=== PATIENT | female | born 1985 | race Caucasian/White ===

== ENCOUNTER 2020-12-27 19:34 | Emergency (ER) | payer OTHER, SELFPAY ==
[2020-12-27 19:45] VITALS: BP 107/81; PULSE 81; RESP 16; TEMP 36.3; O2SAT 100
--- NOTE | 2020-12-27 19:54 | ED.GENADULT ---
HPI - General Adult General Chief complaint: Upper Respiratory Infection Stated complaint: sinus infection Time Seen by Provider: 12/27/20 19:37 Source: patient Mode of arrival: ambulatory Limitations: no limitations History of Present Illness HPI narrative: Patient presents for evaluation of sinus issues for last 3 days. She reports sinus congestion, thick purulent drainage from both nares, mild sore throat. No fever, chills, nausea, vomiting, cough, shortness of breath. No recent sick contacts to her knowledge. She did have Covid in the past. She has not received COVID vaccination. She is currently breast-feeding. She tried taking some [id number] agents with minimal improvement in her symptoms or after. Related Data Home Medications Medication Instructions Recorded Confirmed PNV no.[id number] acid 1 tablet PO DAILY 12/27/20 12/27/20 [Complete ] sertraline 50 mg PO DAILY 12/27/20 12/27/20 Allergies Allergy/AdvReac Type Severity Reaction Status Date / Time No Known Allergies Allergy Verified 12/27/20 19:36 Review of Systems Review of Systems: Narrative: CONSTITUTIONAL: Denies fever, chills, or sweats. EYES: Denies visual changes, redness, or discharge. ENT: Reports sinus congestion and mucopurulent drainage from both nares. Reports mild sore throat. Denies otalgia, tinnitus and hearing loss CARDIOVASCULAR: Denies chest pain, palpitations, or edema. RESPIRATORY: Denies cough or dyspnea. GASTROINTESTINAL: Denies abdominal pain, nausea, vomiting, or diarrhea. GENITOURINARY: Denies dysuria or hematuria. SKIN: Denies rash or itching. MUSCULOSKELETAL: Denies back pain, joint pain, or myalgia. NEUROLOGIC: Denies headache, numbness, dizziness, or weakness. PSYCHIATRIC: Denies anxiety or depression. [facility] Past Medical History Medical History (Updated 12/27/20 @ 20:00 by Randall Casillas, CHINYERE, JAKI) Depression Surgical History Surgical History History of section Family History Family History Mother No pertinent past medical history Social History Social History Alcohol intake: current Alcohol use details: Social Substance use: never Living arrangements: with family Gender identity (if verbalized by the patient): Female Sexual Orientation (if Verbalized by the Patient): Straight or Heterosexual Spiritual care concerns: No Exam Narrative: Exam Narrative: GENERAL: Well-appearing, well-nourished, and in no acute distress. HEAD: Normocephalic, atraumatic. EYES: PERRLA and EOMI. ENT: Nares clear, no rhinorrhea or epistaxis. Mucous membranes moist. Posterior pharyngeal erythema without exudate. Uvula is midline. Bilateral TMs erythematous with middle ear fluid present bilaterally. Bilateral frontal and maxillary sinuses slightly tender to palpation NECK: Supple. No adenopathy or masses. No carotid bruits or JVD CHEST: Clear to auscultation. No respiratory distress. No wheezes rales or rhonchi HEART: Regular rate and rhythm. No murmur heard. Normal peripheral pulses. ABDOMEN: Soft, nontender, nondistended, normal active bowel sounds. EXTREMITIES: Normal range of motion. No edema. SKIN: Warm, dry, no rash. NEURO: No focal deficits. Alert and oriented x3. PSYCH: Normal mood and affect. Course Course Emergency Course: This is a 35-year-old female who presents with 3-day history of sinus congestion, mucopurulent drainage from both nares. Given reported history, her symptoms are consistent with ABRS. We will treat with Augmentin. Advised on signs and symptoms for which she should monitor child while breast-feeding. We did a rapid Covid swab which was negative. Advised follow-up outpatient for further evaluation and treatment return for worsening symptoms. Patient agreed with plan of
== END 2020-12-27 20:12 | disposition home or self-care (01) ==
PROVIDERS: Emergency Provider Nurse Practitioner
DX: J01.90 Acute sinusitis, unspecified (principal); Z20.822 Contact with and (suspected) exposure to COVID-19; F32.9 Major depressive disorder, single episode, unspecified
CPT/HCPCS: 87426; 99213; C9803; G0463

== ENCOUNTER 2022-10-27 15:29 | Emergency (ER) | payer BC, SELFPAY ==
--- NOTE | 2022-10-27 15:31 | ED.EAR ---
HPI - Ear Problem General Chief complaint: Ear Stated complaint: Lt Ear Irritation Time Seen by Provider: 10/27/22 15:37 Source: patient and RN notes reviewed Mode of arrival: ambulatory Limitations: no limitations History of Present Illness HPI Narrative: 36-year-old female presents concern for left ear pain. She also reports nasal congestion, rhinorrhea, sore throat started today. She reports she had a fever on the 1st day of symptoms. She reports cough. Reports she took NyQuil last night MD Complaint: ear pain Related Data Home Medications Medication Instructions Recorded Confirmed sertraline 50 mg tablet 50 mg PO DAILY 12/27/20 10/27/22 ubrogepant 100 mg tablet (Ubrelvy) 100 mg PO DIRECTED 10/27/22 10/27/22 Allergies Allergy/AdvReac Type Severity Reaction Status Date / Time No Known Allergies Allergy Verified 10/27/22 15:40 Review of Systems Review of Systems: CONSTITUTIONAL: Denies malaise, chills, sweats, or fever. EYES: Denies visual changes, redness, or discharge. ENT: Reports rhinorrhea, congestion,and sore throat. Reports left ear pain CARDIOVASCULAR: Denies chest pain, palpitations, or edema. RESPIRATORY: Reports cough. Denies dyspnea. GASTROINTESTINAL: Denies abdominal pain, nausea, vomiting, diarrhea SKIN: Denies rash or itching. MUSCULOSKELETAL: Denies myalgia. NEUROLOGIC: Denies headache. All systems reviewed & are unremarkable except as noted in HPI and below PMFSH Past Medical History Medical History (Updated 10/27/22 @ 15:46 by Lyudmila Troncoso NP) Depression Surgical History Surgical History History of section Family History Family History Mother No pertinent past medical history Social History Social History Alcohol intake: current Alcohol use details: Social Substance use: never Living arrangements: with family Gender identity (if verbalized by the patient): Female Sexual Orientation (if Verbalized by the Patient): Straight or Heterosexual Spiritual care concerns: No Comments At time of signature, agree with nursing past medical, surgical, social and family history. There is no relevant family history pertinent to the presenting complaint Exam Narrative: GENERAL: Well-appearing, well-nourished, and in no acute distress. HEAD: Normocephalic EYES: PERRLA, conjunctivae clear ENT: Nares clear, turbinates edematous, clear discharge. Mucous membranes moist. Right tM pearly castillo with dull light reflex left TM erythematous; no tragal tenderness. Oropharynx not erythematous without lesions. Tonsils not enlarged and without exudate, no drooling, no hoarseness, no trismus, uvula midline. NECK: Supple. No lymphadenopathy CHEST: Clear to auscultation, breath sounds equal. No wheezing, rhonchi, rales, or stridor. No respiratory distress, speaks in full sentences. HEART: Regular rate and rhythm. No murmur heard. SKIN: Warm, dry, no rash. NEURO: Alert and oriented x3. PSYCH: Normal mood and affect Course Course Emergency Course: Patient is aware of diagnosis, understands and agrees to treatment plan. Anticipatory guidance given. Patient agrees to follow-up as directed and is aware of reasons to seek care at the emergency department. Portions of this record may have been created with voice recognition software Level of Care: Express Care Visit Vital Signs Vital signs: Reviewed. Medical Decision Making MDM Narrative Medical decision making narrative: Differential diagnosis considered: Otoole virus, strep pharyngitis, allergic rhinitis, upper respiratory tract infection, sinusitis, rhinosinusitis, nasopharyngitis. viral pharyngitis, otitis media, otitis externa, otitis effusion, cerumen impaction, foreign body. Exam findings show no acute concerns or changes; patien
[2022-10-27 15:37] VITALS: BP 111/70; PULSE 76; RESP 18; TEMP 36.6; O2SAT 100
== END 2022-10-27 15:50 | disposition home or self-care (01) ==
PROVIDERS: Emergency Provider Nurse Practitioner
DX: H66.92 Otitis media, unspecified, left ear (principal); F32.A Depression, unspecified
CPT/HCPCS: 99203; G0463

== ENCOUNTER 2024-05-20 09:59 | Emergency (ER) | payer BC, SELFPAY ==
[2024-05-20 10:30] VITALS: BP 114/72; PULSE 81; RESP 16; TEMP 36.2; O2SAT 100
--- NOTE | 2024-05-20 10:42 | ED.EAR ---
HPI - Ear Problem General Chief complaint: Ear Stated complaint: ear infection Time Seen by Provider: 05/20/24 10:45 Source: patient, RN notes reviewed and old records reviewed Mode of arrival: ambulatory Limitations: no limitations History of Present Illness HPI Narrative: [age] year female to the complaints of left ear pain for 3 days. Patient states she took some Advil last night. Related Data Home Medications ?Medication ?Instructions ?Recorded ?Confirmed ?Last Taken ?Type ubrogepant 100 mg tablet (Ubrelvy) 100 mg PO DIRECTED 10/27/22 10/27/22 Unknown History Allergies Allergy/AdvReac Type Severity Reaction Status Date / Time No Known Allergies Allergy Verified 05/20/24 10:47 Review of Systems Review of Systems: All systems reviewed & are unremarkable except as noted in HPI and below Constitutional: Constitutional: Reports no additional constitutional complaints ENT: Reports as per HPI Cardiovascular: Cardiovascular: Reports no additional cardiovascular complaints, Denies chest pain and Denies dyspnea Respiratory: Respiratory: Reports no additional respiratory complaints, Denies chest congestion, Denies cough and Denies dyspnea Gastrointestinal: Gastrointestinal: Reports no additional gastrointestinal complaints, Denies abdominal pain, Denies nausea and Denies vomiting Musculoskeletal: Musculoskeletal: Reports no additional musculoskeletal complaints Integumentary/Breasts: Skin/Breast: Reports system reviewed and no additional complaints, except as docu PMFSH Past Medical History Medical History Depression Surgical History Surgical History History of section Family History Family History Mother No pertinent past medical history Social History Social History Alcohol intake: current Alcohol use details: Social Substance use: never Living arrangements: with family Gender identity (if verbalized by the patient): Female Sexual Orientation (if Verbalized by the Patient): Straight or Heterosexual Spiritual care concerns: No Comments At the time of my signature, I reviewed and agree with the nursing past medical, surgical, social, and family history. There is no relevant family history pertinent to the patient complaint. Exam Const: General: cooperative, healthy appearing, comfortable, no acute distress, well developed, alert and well nourished Nutritional Appearance: well nourished Orientation/consciousness: patient oriented x3 Limitations: no limitations HENMT: Head: normal to inspection Ears: hearing grossly normal bilaterally, external ears normal, EAC's normal, mastoids normal, no periauricular adenopathy and TM abnormal bulging on the left and with fluid behind the TM bilateral Face/Nose/Sinus: Normal external nose present, normal facial exam and face symmetric Face and sinus: normal facial exam and face symmetric Eyes: General: appearance normal, both eyes and all related structures Alignment and Position: alignment normal Periorbital: periorbital findings normal Neck: Neck: normal visual inspection, full ROM, no lymphadenopathy and no meningeal signs Chest: Chest palpation & inspection: normal inspection of the chest Resp: Effort & Inspection: normal respiratory effort and able to speak in complete sentences Auscultation: clear to auscultation bilaterally, no crackles, no rales, no rhonchi and no wheezes Cardio: Rate: regular rate Skin: General skin exam: normal color and no rashes or lesions noted Lesions: no lesions Rashes: no rashes Wounds: no wounds Neuro: General: patient oriented x3, gait normal, tone normal, moves all extremities and no meningeal signs Cognition (Neuro): normal cognition Speech: normal speech Gait exam (Neuro): Normal gait present Extrem: General: normal to inspection, full ROM, capillary refill normal and normal gait Psych: Appearance: grossly normal and well kempt Mental Status: mental status grossly normal Speech and movement: Normal speech and movement present and Clear speech present Affect: normal affect Attitude: cooperative Course Course Level of Care: Express Care Visit Vital Signs Vital signs: Vital Signs Temperature 97.1 F L 05/20/24 10:30 Pulse Rate 81 05/20/24 10:30 Respiratory Rate 16 05/20/24 10:30 Blood Pressure 114/72 05/20/24 10:30 Pulse Oximetry 100 05/20/24 10:30 Oxygen Delivery Room Air 05/20/24 10:30 Temperature 97.1 F L 05/20/24 10:30 Pulse Rate 81 05/20/24 10:30 Respiratory Rate 16 05/20/24 10:30 Blood Pressure 114/72 05/20/24 10:30 Pulse Oximetry 100 05/20/24 10:30 Oxygen Delivery Room Air 05/20/24 10:30 Reviewed Medical Decision Making MDM Narrative Medical decision making narrative: Patient sitting comfortably in exam room. Nontoxic, vitals stable. Patient in no acute distress Patient presents for ear discomfort, clear fluid noted behind TM. No signs of a bacterial infection Patient appropriate for outpatient treatment Discharge instructions reviewed with patient, as well as provided in writing per nursing staff. The instructions also include specific and strict return/GO TO THE ER as well as f/u information. All questions have been answered, and the patient deny any further questions with discharge and discharge plan. Some parts of this dictation were generated by voice recognition software and may contain typographical and/or grammatical inaccuracies. Differential Diagnosis Differential Diagnosis: Otitis media, serous otitis, URI Medical Records Medical records reviewed: Yes I reviewed the external patient's medical records. Vital Signs Vital Signs: Vital Signs Temperature 97.1 F L 05/20/24 10:30 Pulse Rate 81 05/20/24 10:30 Respiratory Rate 16 05/20/24 10:30 Blood Pressure 114/72 05/20/24 10:30 Pulse Oximetry 100 05/20/24 10:30 Oxygen Delivery Room Air 05/20/24 10:30 Temperature 97.1 F L 05/20/24 10:30 Pulse Rate 81 05/20/24 10:30 Respiratory Rate 16 05/20/24 10:30 Blood Pressure 114/72 05/20/24 10:30 Pulse Oximetry 100 05/20/24 10:30 Oxygen Delivery Room Air 05/20/24 10:30 Reviewed Lab Data Lab results reviewed: Yes I reviewed the patient's lab results. Labs: Reviewed Critical Care Time Critical Care Time Critical Care Time: No Discharge Plan Discharge Clinical Impression: Acute serous otitis media of left ear Qualifiers: Recurrence: not specified as recurrent Qualified Code(s): H65.02 - Acute serous otitis media, left ear Patient Disposition: Home, Self-Care Condition: Stable Instructions: Antibiotic Form, Fluid In The Ear (Serous Otitis Media) (ED) Additional Instructions: It is very important to treat your symptoms. Drink plenty of water, Gatorade, Pedialyte, ice pops or Jell-O. -Alternate Tylenol and Motrin per package directions for fever or pain. You can alternate every 4 hours -Antihistamine medication such as Zyrtec/Claritin/Ester during the day can help improve symptoms. -doing daily nasal irrigations can help relieve pressure your sinuses. Things like a Neti pot -Use Flonase twice a day for 5 days then daily to help reduce the inflammation and dry up your sinuses. -You can also use Mucinex. Be sure to drink plenty of water with this medication at least 8 ounces with every dose and it is important to drink 8 to 10 glasses of water per day. Water is a natural decongestant -Frequent hand washing or hand post anesthesia room nurse is one of the best ways to prevent spread of infection. -Using a vaporizer or humidifier at night will also help thin secretions and help with coughing up phlegm. -Follow up with primary care provider in 7-10 days if condition is not improving - For new or worsening symptoms go directly to the nearest ER Patient Language: Amharic Prescriptions: New methylprednisolone [Medrol (Huseyin)] 4 mg tablets,dose pack See Rx Instructions PO .COMPLEX Qty: 21 0RF Rx Instructions: orally per package directions No Action Ubrelvy 100 mg tablet 100 mg PO DIRECTED Rx Instructions: EVERY OTHER DAY Follow-up/Referrals: Mitch,JORDYN Pimentel [Primary Care Provider] - 1 Week ([facility] follow up ) Time of Disposition: 10:53
--- OUTSIDE RECORDS SUMMARY | 2024-05-27 15:04 | XMS_ITS | Encounter Summary ---
Author Organization [facility] Address [address] [place] [address]. [address] [address] Care Team Providers Care Restaurant Hourly Team Member Name Role Phone Lena Meyer PA-C Primary Care Provider [phone] Encounter Details Date Type Department Care Team (Latest Contact Info) Description 04/11/2023 Travel Social History Tobacco Use Types Packs/Day Years Used Date Smoking Tobacco: Never Smokeless Tobacco: Never Alcohol Use Standard Drinks/Week Comments Yes 0 (1 standard drink = 0.6 oz pur e alcohol) socially PHQ-2 Answer Date Recorded Patient Health Questionnaire-2 Score 0 03/14/2023 Comments Unknown Sex and Gender Information Value Date Recorded Sex Assigned at Not on file Legal Sex Female 7:59 PM CDT Gender Identity Not on file Sexual Orientation Not on file documented as of this encounter Plan of Treatment Not on file documented as of this encounter Visit Diagnoses Not on filedocumented in this encounter Care Teams Restaurant Hourly Team Member Relationship Specialty Start Date End Date Lena Meyer PA-C [address] [facility] [address] [place] [id number] PCP - General PHYSICIAN BUNCHER HAND 02/27/23 documented as of this encounter
--- OUTSIDE RECORDS SUMMARY | 2024-05-27 15:04 | XMS_ITS | Encounter Summary ---
Author Organization [facility] Address [address] [place] [address]. [place] [id number] [place] [id number] Care Team Providers Care Latin American Studies Director Name Role Phone Lena Meyer PA-C Primary Care Provider [phone] Encounter Details Date Type Department Care Team (Late st Contact Info) Description 03/16/2023 9:20 AM CDT Laboratory Only [facility] Family & Internal Medicine [address] [phone] Lena Meyer PA-C [address] [place] [address] Social History Tobacco Use Types Packs/Day Years [...] on file documented as of this encounter Procedures Procedure Name Priority Date/Time Associated Diagnosis Comments VENIPUNC ARM DRAW Routine 03/16/2023 9:02 AM CDT Elevated liver enzymes Decreased hemoglobin documented in this encounter Visit Diagnoses Diagnosis Elevated liver enzymes- Primary Nonspecific elevation of levels of transaminase or lactic acid dehydrogenase (LDH) Decreased hemoglobin Anemia, unspecified documented in this encounter Care Teams Latin American Studies Director Relationship Specialty Start Date End Date Lena Meyer PA-C [address] [place] [address] PCP - General PHYSICIAN DEPARTMENT SUPERVISOR 02/27/23 documented as of this encounter
--- OUTSIDE RECORDS SUMMARY | 2024-05-27 15:04 | XMS_ITS | Encounter Summary ---
Author Organization [facility] Address [address] [place] [address]. [place] [id number] [place] [address] Care Team Providers Care Carbon Capture Power Plant Manager Name Role Phone Lena Meyer PA-C Primary Care Provider [phone] Encounter Details Date Type Department Care Team (Late st Contact Info) Description 05/03/2023 [employer] Message Enc [facility] Family & Internal Medicine [address] [phone] Lena Meyer PA-C [address] [place] [address] [place] [facility] Social History Tobacco Use Types Packs/Day Years [...] on file documented as of this encounter Progress Notes * Harriet Wolff RN - 05/03/2023 2:37 PM CST Patient aware and voiced understanding OR ASIC DESIGN ENGINEER * Lena Meyer PA-C - 05/03/2023 9:51 AM CST With her kids having pinkeye, I did send in some antibiotic drops to the pharmacy. If symptoms do not improve she will need to be seen. Thank you! OR ASIC DESIGN ENGINEER * Harriet Wolff RN - 05/03/2023 9:45 AM CST Please advise. OR ASIC DESIGN ENGINEER documented in this encounter Plan of Treatment Not on file documented as of this encounter Visit Diagnoses Diagnosis Acute bacterial conjunctivitis of both eyes- Primary documented in this encounter Care Teams Carbon Capture Power Plant Manager Relationship Specialty Start Date End Date Lena Meyer PA-C [address] [address] PCP - General PHYSICIAN MAID CLEANING COOKING 02/27/23 documented as of this encounter
--- OUTSIDE RECORDS SUMMARY | 2024-05-27 15:04 | XMS_ITS | Clinical Summary ---
Author Organization [facility] Address [address] [place] [address]. [place], [place] [address] [place] [address] Care Team Providers Care Internet Consultant Name Role Phone Lena Meyer PA-C Primary Care Provider [phone] Allergies No known active allergies Medications sertraline (ZOLOFT) 25 MG tablet Take 1 tablet (25 mg total) by mouth daily. 12/11/2018 Active ubrogepant (UBRELVY) 100 MG tablet Take 1 tablet (100 mg total) by mouth as needed. Prn 02/11/2022 Active Active Problems No known active problems Immunizations Name Administration Dates Next Due Influenza (Generic) 06/22/2017,03/19/2014 Influenza Adult (Generic) 02/26/2020,04/03/2019, 03/21/2018 PFIZER COVID-19 (ORIGINAL FO RMULATION, PURPLE CAP) mRNA, LNP-S, PF, 30 MCG/0.3 ML DOSE 02/07/2021,01/06/2021 Tdap (Generic) 05/20/2020,06/26/2017 Family History Medical History Relation Comments Hypertension Father Christina's thyroiditis Mother Relation Status Comments Father Alive Mother Alive Social History Tobacco Use Types Packs/Day Years Used Date Smoking Tobacco: Never Smokeless Tobacco: Never Tobacco Cessation:Counseling Given: No Alcohol Use Standard Drinks/Week Comments Yes 0 (1 standard drink = 0.6 oz pur e alcohol) socially PHQ-2 Answer Date Recorded Patient Health Questionnaire-2 Score 0 03/14/2023 Comments Unknown Sex and Gender Information Value Date Recorded Sex Assigned at Not on file Legal Sex Female 7:59 PM CDT Gender Identity Not on file Sexual Orientation Not on file Last Filed Vital Signs Vital Sign Reading Time Taken Comments Blood Pressure 130/81 03/14/2023 9:05 AM CDT Pulse 85 03/14/2023 9:05 AM CDT Temperature 35.9 ??C (96.7 ??F) 03/14/2023 9:05 AM CD T Respiratory Rate 14 03/14/2023 9:05 AM CDT Oxygen Saturation 99% 03/14/2023 9:05 AM CDT Inhaled Oxygen Concentration - - Weight 75.8 kg (167 lb) 03/14/2023 9:05 AM CDT Height 181.6 cm (5' 11.5 ) 03/14/2023 9:05 AM CD T Body Mass Index 22.97 03/14/2023 9:05 AM CDT Plan of Treatment Health Maintenance Due Date Last Done Comments Cervical Cancer Screening Pap Smear (Age 30 to 64) Every 3 Years 1985 Hepatitis C 12/03/2003 Hepatitis B Vaccines (1 of 3 - 19+ 3-dose series) 2004 Cervical Cancer Screening Pap with HPV Testing (Age 30 to 64) Every 5 Years 12/03/2015 Cervical Cancer Screening with HPV 12/03/2015 COVID-19 Vaccine ( season) 2024 02/07/2021, 01/06/2021 Influenza Adult (#1) 2024 02/26/2020, 04/03/2019, 03/21/2018, Additional history exists Annual Physical 03/14/2024 03/14/2023 DTaP, Tdap and Td Vaccines (3 - Td or Tdap) 05/20/2030 05/20/2020, 06/26/2017 HPV Vaccines Aged Out No longer eligi ble based on patient's age to complete this topic Meningococcal Vaccine Aged Out No bautista joselito eligible based on patient's age to complete this topic Pneumococcal Vaccine: Pediatrics (0 to 5 Years) and At-Risk Patients (6 to 64 Years) Aged Out No longer eligible based on patient's age to complete this topic RSV Immunizations Under 20 Months Aged Out No longer eligible based on patient's age to complete this topic Insurance [facility] Care Teams Internet Consultant Relationship Specialty Start Date End Date Lena Meyer PA-C [address] [facility] [address] [place] [id number] PCP - General PHYSICIAN SUPERVISOR NUCLEAR MEDICINE 02/27/23
--- OUTSIDE RECORDS SUMMARY | 2024-05-27 15:04 | XMS_ITS | Encounter Summary ---
Author Organization [facility] Address [address] [place] [address]. [address] [address] Care Team Providers Care Telegraphic Typewriter Mechanic Name Role Phone Lena Meyer PA-C Primary Care Provider Encounter Details Date Type Department Care Team (Latest Contact Info) Description 03/16/2023 Travel Social History Tobacco Use Types Packs/Day [...] on filedocumented in this encounter Care Teams Telegraphic Typewriter Mechanic Relationship Specialty Start Date End Date Lena Meyer PA-C [address] [facility] [address] [place] [id number] PCP - General PHYSICIAN CEO NA 02/27/23 documented as of this encounter
--- OUTSIDE RECORDS SUMMARY | 2024-05-27 15:04 | XMS_ITS | Encounter Summary ---
Author Organization [facility] Address [address] [place] [address]. [place], [place] [id number] [place] [address] Care Team Providers Care Dust Box Worker Name Role Phone Lena Meyer PA-C Primary Care Provider [phone] Encounter Details Date Type Department Care Team (Latest Contact Info) Description 03/16/2023 12:28 PM CDT - 03/16/2023 11:59 PM CDT Hospital Encounter [facility] [address] [place], [place] [id number] Lena Meyer PA-C [address] [facility] [address] [place], [place] [id number] Discharge Disposition: Home or Self Care (Routine Discharge) Social History Tobacco Use Types Packs/Day Years [...] on file documented as of this encounter Medications at Time of Discharge sertraline (ZOLOFT) 25 MG tablet Take 1 tablet (25 mg total) by mouth daily. 12/11/2018 ubrogepant (UBRELVY) 100 MG tablet Take 1 tablet (100 mg total) by mouth as needed. Prn 02/11/2022 documented as of this encounter Plan of Treatment Not on file documented as of this encounter Procedures Procedure Name Priority Date/Time Associated Diagnosis Comments VITAMIN B12 / FOLATE Routine 03/16/2023 9:01 AM CDT Decreased hemoglobin IRON SAT PANEL (IRON,IBC,%SAT) Routine 03/16/2023 9:01 AM CDT Decreased hemoglobin HEPATIC FUNCTION PANEL Routine 03/16/2023 9:01 AM CDT Elevated liver enzymes FERRITIN Routine 03/16/2023 9:01 AM CDT Decreased hemoglobin documented in this encounter Results * (ABNORMAL) HEPATIC FUNCTION PANEL (03/16/2023 9:01 AM CDT) TOTAL PROTEIN S/P/B 7.1 6.4 - 8.2 G/DL 03/16/2023 2:16 PM CDT [facility] ALBUMIN S/P/B 4.3 3.4 - 5.0 G/DL 03/16/2023 2:16 PM CDT [facility] BILIRUBIN TOTAL S/P/B 0.6 0.2 - 1.2 MG/DL 03/16/2023 2:16 PM CDT [facility] BILIRUBIN DIRECT S/P/B 0.1 0.0 - 0.20 MG/DL 03/16/2023 2:16 PM T [facility] BILIRUBIN INDIRECT S/P/B 0.5 0.0 - 0.9 MG/DL 03/16/2023 2:16 PM CDT [facility] ALKALINE PHOSPHATASE S/P/B 96 50 - 136 U/L 03/16/2023 2:16 PM CDT [facility] AST 38(H) 15 - 37 U/L 03/16/2023 2:16 PM T [facility] ALT 85(H) 14 - 55 U/L 03/16/2023 2:16 PM CDT [facility] A/G RATIO 1.5 1.0 - 2.0 RATIO 03/16/2023 2:16 PM CDT [facility] 03/16/2023 9:01 AM CDT us Lena Meyer PA-C LABORATORY Final Result Performing Organization Address City/[facility]/ZIP Co de Phone Number [facility] [address] [place] [address], [place] [phone] * IRON SAT PANEL (IRON,IBC,%SAT) (03/16/2023 9:01 AM CDT) IRON 117 50 - 170 MCG/DL 03/16/2023 2:03 PM CDT [facility] IRON BINDING CAPACITY 435 250 - 450 MCG/DL 03/16/2023 2:03 PM CDT [facility] IRON SATURATION 27 20 - 55 % 2:03 PM CDT [facility] 03/16/2023 9:01 AM CDT us Lena Meyer PA-C LABORATORY Final Result Performing Organization Address City/[facility]/ZIP Co de Phone Number [facility] [address] [place] [address], [place] [phone] * FERRITIN (03/16/2023 9:01 AM CDT) FERRITIN 15.0 8.0 - 388.0 NG/ML 03/16/2023 2:16 PM CDT [facility] 03/16/2023 9:01 AM CDT us Lena Meyer PA-C LABORATORY Final Result Performing Organization Address City/[facility]/ZIP Co de Phone Number [facility] [address] [place] [address], [place] [phone] * VITAMIN B12 / FOLATE (03/16/2023 9:01 AM CDT) VITAMIN B12 S/P/B 632 193 - 986 PG/ML 03/16/2023 2:12 PM CDT [facility] FOLATE 18.0 8.6 - 58.9 NG/ML 03/16/2023 2:12 PM CDT [facility] 03/16/2023 9:01 AM CDT Lena Meyer PA-C LABORATORY Final Result Performing Organization Address City/[facility] Co de Phone Number [facility] [address] [place] [address], [place] [phone] documented in this encounter Visit Diagnoses Diagnosis Decreased hemoglobin Anemia, unspecified Elevated liver enzymes Nonspecific elevation of levels of transaminase or lactic acid dehydrogenase (LDH) documented in this encounter Care Teams Dust Box Worker Relationship Specialty Start Date End Date Lena Meyer PA-C [address] [address] PCP - General PHYSICIAN DATA MANAGER 02/27/23 documented as of this encounter
--- OUTSIDE RECORDS SUMMARY | 2024-05-27 15:04 | XMS_ITS | Encounter Summary ---
Author Organization [facility] Address [address] [place] [address]. [place] [address] Care Team Providers Care Assistant Merchandise Manager Name Role Phone Vonda Loya PA-C Primary Care Provider [phone] Reason for Referral * Imaging (Routine) - Closed Specialty Diagnoses / Procedures Referred By Contac t Referred To Contact RADIOLOGY Diagnoses Elevated liver enzymes Procedures US ABD LIMITED Vonda Loya PA-C [address] [place] [address] Phone: tel: fax: Referral ID Status Reason Start Date Expiration Date Visits Re quested Visits Authorized [id number] Closed 03/14/2023 03/14/2024 1 1 OR ACCOUNT MANAGER Reason for Visit * Imaging (Routine) - Closed Specialty Diagnoses / Procedures Referred By Contac t Referred To Contact RADIOLOGY Diagnoses Elevated liver enzymes Procedures US ABD LIMITED Vonda Loya PA-C [address] [place] [address] Phone: tel: fax: Referral ID Status Reason Start Date Expiration Date Visits Re quested Visits Authorized [id number] Closed 03/14/2023 03/14/2024 1 1 Encounter Details Date Type Department Care Team (Latest Contact Info) Description 04/11/2023 10:00 AM SENIOR ACCOUNT MANAGER - 04/11/2023 11:59 PM SENIOR ACCOUNT MANAGER Hospital Encounter [facility] Ul[facility]ound [address] [facility] [place] [address] Vonda Loya PA-C [address] [place] [address] Discharge Disposition: Home or Self Care (Routine [...] Prn 02/11/2022 documented as of this encounter Progress Notes * Jocelyn Spencer MA - 04/11/2023 10:00 AM CST Pt told results of US. Pt v/u OR ACCOUNT MANAGER documented in this encounter Plan of Treatment Not on file documented as of this encounter Procedures Procedure Name Priority Date/Time Associated Diagnosis Comments US ABD LIMITED Routine 04/11/2023 10:47 AM SENIOR ACCOUNT MANAGER Elevated liver enzymes documented in this encounter Results * US ABD LIMITED (04/11/2023 10:47 AM SENIOR ACCOUNT MANAGER) Anatomical Region Laterality Modality Abdomen Ultrasound 04/11/2023 1:17 PM SENIOR ACCOUNT MANAGER Impressions 04/11/2023 1:20 PM SENIOR ACCOUNT MANAGER IMPRESSION: 1. ??Mild fatty liver without focal mass. Ordered By: VONDA LOYA Interpreted By: Nato Johnson, 04/11/2023 1:17 PM Narrative 04/11/2023 1:20 PM SENIOR ACCOUNT MANAGER IMAGING STUDIES: ??US ABD LIMITED ? DATE: ??04/11/2023 10:12 AM COMPARISON STUDIES: No previous exams available CLINICAL HISTORY: Abnormal levels of other serum enzymes. Elevated liver enzymes FINDINGS: 1. ??Normal appearance to the gallbladder without calculi. No gallbladder wall thickening. 2. ??Mild fatty infiltration of the liver without focal mass..Hepatic and portal veins are patent.. Common bile duct measures.4.5 mm. 3. ??Right kidney yrsixthe04.9 x 4.4 x 5.0 cm. No focal mass or hydronephrosis. 4. ??Partially visualized pancreas without gross abnormality. Procedure Note Nadeem Johnson MD - 04/11/2023 IMAGING STUDIES: US ABD LIMITED DATE: 04/11/2023 10:12 AM COMPARISON STUDIES: No previous exams available CLINICAL HISTORY: Abnormal levels of other serum enzymes. Elevated liverenzymes FINDINGS: 1. Normal appearance to the gallbladder without calculi. No gallbladderwall thickening. 2. Mild fatty infiltration of the liver without focal mass..Hepatic andportal veins are patent.. Common bile duct measures.4.5 mm. 3. Right kidney exlqzwek06.9 x 4.4 x 5.0 cm. No focal mass orhydronephrosis. 4. Partially visualized pancreas without gross abnormality. IMPRESSION: 1. Mild fatty liver without focal mass. Ordered By: VONDA LOYA Interpreted By: Nato Johnson, 04/11/2023 1:17 PM Vonda Loya DE-C ULTRASOUND Final Result documented in this encounter Visit Diagnoses Diagnosis Elevated liver enzymes Nonspecific elevation of levels of transaminase or lactic acid dehydrogenase (LDH) documented in this encounter Care Teams Assistant Merchandise Manager Relationship Specialty Start Date End Date Vonda Loya, GUERA [address] [facility] [address] [place] [address] PCP - General PHYSICIAN INSOLE PRESSER 02/27/23 documented as of this encounter
--- OUTSIDE RECORDS SUMMARY | 2024-05-27 15:05 | XMS_ITS | Encounter Summary ---
Author Organization [facility] Address [address] [place] [address]. [place] [address] Care Team Providers Care Sensor Specialist Name Role Phone David Ross MD Primary Care Provider Unavailable Encounter Details Date Type Department Care Team (Latest Contact Info) Description 08/01/2016 Abstract [facility] Social History Tobacco Use Types Packs/Day Years Used Date Smoking Tobacco: Never Assessed Comments Unknown Sex and Gender Information Value Date Recorded Sex Assigned at Not on file Legal Sex Female 7:59 PM CDT Gender Identity Not on file Sexual Orientation Not on file documented as of this encounter Plan of Treatment Not on file documented as of this encounter Visit Diagnoses Not on filedocumented in this encounter Care Teams Sensor Specialist Relationship Specialty Start Date End Date David Ross MD PCP - General 07/31/16 documented as of this encounter
--- OUTSIDE RECORDS SUMMARY | 2024-05-27 15:05 | XMS_ITS | Encounter Summary ---
Author Organization [facility] Address [address] [place] [address]. [place] [address] Care Team Providers Care Preconstruction Manager Name Role Phone Unavailable Primary Care Provider Unavailabl e Encounter Details Date Type Department Care Team (Latest Contact Info) Description 05/14/2018 Scan HE[facility] INFO [facility] Scanned, Documents Social History Tobacco Use Types Packs/Day Years [...]
--- OUTSIDE RECORDS SUMMARY | 2024-05-27 15:05 | XMS_ITS | Encounter Summary ---
Author Organization [facility] Address [address] [place] [address]. [place] [address] Care Team Providers Care News Production Supervisor Name Role Phone Md Generic Lakeisha LOPEZ Primary Care Provider Unavailable David Lopez MD Primary Care Provider Unavailable David Lopez MD Primary Care Provider Unavailable Encounter Details Date Type Department Care Team (Latest Contact Info) Description 04/17/2014 Scan HEALTH INFO [facility] Scanned, Documents Social [...] on filedocumented in this encounter Care Teams News Production Supervisor Relationship Specialty Start Date End Date David Lopez MD PCP - General 07/31/16 David Lopez MD PCP - General 03/16/16 David Lopez MD PCP - General 07/23/1203/15 documented as of this encounter
--- OUTSIDE RECORDS SUMMARY | 2024-05-27 15:05 | XMS_ITS | Encounter Summary ---
Author Organization [facility] Address [address] [place] [address]. [place] [address] Care Team Providers Care Director Geothermal Operations Name Role Phone Vonda Loya PA-C Primary Care Provider [phone] Reason for Referral * Imaging (Routine) - Closed Specialty Diagnoses / Procedures Referred By Contelia t Referred To Contact RADIOLOGY Diagnoses Elevated liver enzymes Procedures US ABD LIMITED Vonda Loya PA-C [id number] [place] [address] Phone: tel: fax: Referral ID Status Reason Start Date Expiration Date Visits Re quested Visits Authorized [id number] Closed 03/14/2023 03/14/2024 1 1 Encounter Details Date Type Department Care Team (Late st Contact Info) Description 03/14/2023 Orders Only [facility] Family & Internal Medicine [facility] [address] [place] [id number] Harriet Wolff RN Social History Tobacco Use Types Packs/Day Years [...] on file documented as of this encounter Results * US ABD LIMITED (04/11/2023 10:47 AM PIE ICER MACHINE) Anatomical Region Laterality Modality Abdomen Ultrasound 04/11/2023 1:17 PM PIE ICER MACHINE Impressions 04/11/2023 1:20 PM PIE ICER MACHINE IMPRESSION: 1. ??Mild fatty liver without focal mass. Ordered By: VONDA LOYA Interpreted By: Nato Johnson, 04/11/2023 1:17 PM Narrative 04/11/2023 1:20 PM PIE ICER MACHINE IMAGING STUDIES: ??US ABD LIMITED ? DATE: ??04/11/2023 10:12 AM COMPARISON STUDIES: No previous exams available CLINICAL HISTORY: Abnormal levels of other serum enzymes. Elevated liver enzymes FINDINGS: 1. ??Normal appearance to the gallbladder without calculi. No gallbladder wall thickening. 2. ??Mild fatty infiltration of the liver without focal mass..Hepatic and portal veins are patent.. Common bile duct measures.4.5 mm. 3. ??Right kidney xqnmizyg43.9 x 4.4 x 5.0 cm. No focal [...] bile duct measures.4.5 mm. 3. Right kidney hbifzrul79.9 x 4.4 x 5.0 cm. No focal mass orhydronephrosis. 4. Partially visualized pancreas without gross abnormality. IMPRESSION: 1. Mild fatty liver without focal mass. Ordered By: VONDA LOYA Interpreted By: Nato Johnson, 04/11/2023 1:17 PM Vonda COBB-C ULTRASOUND Final Result * VITAMIN B12 / FOLATE (03/16/2023 9:01 AM CDT) VITAMIN B12 S/P/B 632 193 - 986 PG/ML 03/16/2023 2:12 PM CDT [facility] FOLATE 18.0 8.6 - 58.9 NG/ML 03/16/2023 2:12 PM CDT [facility] 03/16/2023 9:01 AM CDT Vonda COBB-C LABORATORY Final Result Performing Organization Address City/[facility]/ZIP Co de Phone Number [facility] [address] [place] [address], [place] [phone] * FERRITIN (03/16/2023 9:01 AM CDT) FERRITIN 15.0 8.0 - 388.0 NG/ML 03/16/2023 2:16 PM CDT [facility] 03/16/2023 9:01 AM CDT Vonda CORRIGANC LABORATORY Final Result Performing Organization Address City/[facility]/ZIP Co de Phone Number [facility] [address] [place] [address], [place] [phone] * IRON SAT PANEL (IRON,IBC,%SAT) (03/16/2023 9:01 AM CDT) IRON 117 50 - 170 MCG/DL 03/16/2023 2:03 PM CDT [facility] IRON BINDING CAPACITY 435 250 - 450 MCG/DL 03/16/2023 2:03 PM CDT [facility] IRON SATURATION 27 20 - 55 % 2:03 PM CDT [facility] 03/16/2023 9:01 AM CDT us Vonda Loya PA-C LABORATORY Final Result [facility] [address] [place] [address], * (ABNORMAL) HEPATIC FUNCTION PANEL (03/16/2023 9:01 AM CDT) TOTAL PROTEIN S/P/B 7.1 6.4 - 8.2 G/DL 03/16/2023 2:16 PM CDT [facility] ALBUMIN S/P/B 4.3 3.4 - 5.0 G/DL 03/16/2023 2:16 PM CDT [facility] BILIRUBIN TOTAL S/P/B 0.6 0.2 - 1.2 MG/DL 03/16/2023 2:16 PM CDT [facility] BILIRUBIN DIRECT S/P/B 0.1 0.0 - 0.20 MG/DL 03/16/2023 2:16 PM CDT [facility] BILIRUBIN INDIRECT S/P/B 0.5 0.0 - 0.9 MG/DL 03/16/2023 2:16 PM CDT [facility] ALKALINE PHOSPHATASE S/P/B 96 50 - 136 U/L 03/16/2023 2:16 PM CDT [facility] AST 38(H) 15 - 37 U/L 03/16/2023 2:16 PM CDT [facility] ALT 85(H) 14 - 55 U/L 03/16/2023 2:16 PM CDT [facility] A/G RATIO 1.5 1.0 - 2.0 RATIO 03/16/2023 2:16 PM CDT [facility] 03/16/2023 9:01 AM CDT Vonda Loya PA-C LABORATORY Final Result [facility] [address] [place] [address], documented in this encounter Visit Diagnoses Diagnosis Elevated liver enzymes- Primary Nonspecific elevation of levels of transaminase or lactic acid dehydrogenase (LDH) Decreased hemoglobin Anemia, unspecified Elevated liver enzymes Nonspecific elevation of levels of transaminase or lactic acid dehydrogenase (LDH) documented in this encounter Care Teams Director Geothermal Operations Relationship Specialty Start Date End Date Vonda Loya PA-C [address] [address] [place] [address] PCP - General PHYSICIAN CRICKET COACH 02/27/23 documented as of this encounter
--- OUTSIDE RECORDS SUMMARY | 2024-05-27 15:05 | XMS_ITS | Encounter Summary ---
Author Organization [facility] Address [address] [place] [address]. [address] [address] Care Team Providers Care Communications Electrician Supervisor Name Role Phone Lena Meyer PA-C Primary Care Provider [phone] Encounter Details Date Type Department Care Team (Latest Contact Info) Description 03/14/2023 Travel Social History Tobacco Use Types Packs/Day [...] on filedocumented in this encounter Care Teams Communications Electrician Supervisor Relationship Specialty Start Date End Date Lena Meyer PA-C [address] [facility] [address] [place] [address] PCP - General PHYSICIAN PARKING LOT MANAGER 02/27/23 documented as of this encounter
--- OUTSIDE RECORDS SUMMARY | 2024-05-27 15:05 | XMS_ITS | Encounter Summary ---
Author Organization [facility] Address [address] [place] [address]. [address] [address] Care Team Providers Care Digester Hand Name Role Phone Vonda Loya PA-C Primary Care Provider [phone] Reason for Visit * Reason Comments New Patient Here to get establis hed. Encounter Details Date Type Department Care Team (Late st Contact Info) Description 03/14/2023 9:00 AM CDT Office Visit [facility] Family & Internal Medicine [facility] [id number] [place] [phone] Vonda Loya PA-C [address] [place] [id number] New Patient (Here to get established. ) Social History Tobacco Use Types Packs/Day Years [...] on file documented as of this encounter Last Filed Vital Signs Vital Sign Reading [...] Mass Index 22.97 03/14/2023 9:05 AM CDT documented in this encounter Progress Notes * Vonda Loya PA-C - 03/14/2023 9:00 AM CDT Reason for Visit: New Patient (Here to get established. ) History of Present Illness: Anxiety-patient has been on low-dose sertraline 25 mg for the past 4 years after losing a child. States it is doing very well for her and denies concerns. Migraines-has menstrual migraines. Has never been on preventative medicine. 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 Uses Ubrelvy as needed. No concerns She does have a significant family history of Christina's thyroiditis in her mother. She complains of fatigue, but thinks it is due to having 2 small children ages 5 and 2. She also complains of generalized itchy and dry skin. Denies nausea, vomiting, diarrhea or constipation. Health Maintenance: Gynecological Care: Shelbie has an an appointment in March. Has had abnormal Pap in the past, but repeat Paps have been normal. Follows with gynecology. Mammogram: No family history of early breast cancer. She did have a screening mammogram done last November 2022 that was normal. Cervical cancer screening: Follows with gynecology in [place] yearly. Up-to-date Colonoscopy: Did have a colonoscopy 7 years ago when she had issues with infertility that was normal. No family history of early colon cancer. Did have a family history of a colon cancer in the 70s. Dexa: Not indicated Immunizations: Discussed flu shot today, but she declines. Body mass index is 22.97 Physical activity: Active Dental: Up-to-date Vision: Goes yearly, up-to-date Hearing: No concerns Metabolic screening: Ordered today HCV: Low risk PHQ-9: 03/14/2023 9:16 AM PHQ2/PHQ 9 DEPRESSION SCREEN QUESTIONAIRE Little interest or pleasure in doing things Not at all Feeling down, depressed, or hopeless Not at all Patient Health Questionnaire-2 Score 0 How difficult have these problems made it for you to do your work, take care of things at home, or get along with other people? Not difficult at all SRINIVASA-7 (Generalized Anxiety Disorder) Screening 03/14/2023 9:16 AM SIRNIVASA-7 Feeling nervous, anxious, or on edge 0 Not being able to stop or control worrying 1 Worrying too much about different things 1 Trouble relaxing 0 Being so restless that it is hard to sit still 0 Becoming easily annoyed or irritable 0 Feeling afraid as if something awful might happen 0 SRINIVASA-7 Total Score 2 ROS: Review of Systems Constitutional: Positive for malaise/fatigue. HENT: Negative. Eyes: Negative. Respiratory: Negative. Cardiovascular: Negative. Gastrointestinal: Negative. Genitourinary: Negative. Musculoskeletal: Negative. Skin: Positive for itching. Neurological: Positive for headaches. Endo/Heme/Allergies: Positive for environmental allergies. Psychiatric/Behavioral: The patient is nervous/anxious. Medications: Current Outpatient Medications: sertraline (ZOLOFT) 25 MG tablet, Take 1 tablet (25 mg total) by mouth daily., Disp: , Rfl: ubrogepant (UBRELVY) 100 MG tablet, Take 1 tablet (100 mg total) by mouth as needed. Prn, Disp: , Rfl: Review of patient's allergies indicates: No Known Allergies Past Medical History: Diagnosis Date Arm fracture, right Past Surgical History: Procedure Laterality Date FULL ROUT OBSTE CARE, DELIV X3 ORAL SURGERY PROCEDURE Social History Tobacco Use Smoking status: Never Smokeless tobacco: Never Vaping Use Vaping Use: Never used Substance Use Topics Alcohol use: Yes Comment: socially Drug use: Never Family History Problem Relation Name Age of Onset Christina's thyroiditis Mother Hypertension Father Family Status Relation Name Status Mother Alive Father Alive Physical Exam Vitals reviewed. Constitutional: General: She is not in acute distress. Appearance: Normal appearance. She is not ill-appearing or toxic-appearing. HENT: Head: Normocephalic and atraumatic. Right Ear: Tympanic membrane, external ear and ear canal normal. Left Ear: Tympanic membrane, external ear and ear canal normal. Nose: Nose normal. Mouth/Throat: Mucous membranes are moist. No oropharyngeal exudate or posterior oropharyngeal erythema. Eyes: Extraocular Movements: Extraocular movements intact. Conjunctiva/sclera: Conjunctivae normal. Pupils: Pupils are equal, round, and reactive to light. Neck: Vascular: No carotid bruit. Cardiovascular: Rate and Rhythm: Normal rate and regular rhythm. Heart sounds: Normal heart sounds. No murmur heard. Pulmonary: Effort: Pulmonary effort is normal. No respiratory distress. Breath sounds: Normal breath sounds. Abdominal: General: Bowel sounds are normal. Palpations: Abdomen is soft. Tenderness: There is no abdominal tenderness. Musculoskeletal: General: Normal range of motion. Cervical back: Normal range of motion and neck supple. No rigidity or tenderness. Lymphadenopathy: Cervical: No cervical adenopathy. Skin: General: Skin is warm. Findings: No rash. Neurological: General: No focal deficit present. Mental Status: She is alert and oriented to person, place, and time. Psychiatric: Mood and Affect: Mood normal. Behavior: Behavior normal. Thought Content: Thought content normal. Judgment: Judgment normal. Filed Vitals: 03/14/23 0905 BP: 130/81 Pulse: 85 Resp: 14 Temp: 96.7 ??F (35.9 ??C) TempSrc: Temporal SpO2: 99% Weight: 75.8 kg (167 lb) Height: 5' 11.5 (1.816 m) Assessment Encounter Diagnose(s) ICD-10-CM SNOMED CT(R) 1. Annual physical exam Z00.00 PATIENT ENCOUNTER STATUS CBC W/DIFF AUTOMATED COMPREHENSIVE METABOLIC PANEL TSH W/REFLEX LIPID PANEL 2. Screening, lipid Z13.220 PATIENT ENCOUNTER STATUS LIPID PANEL 3. Screening for diabetes mellitus Z13.1 PATIENT ENCOUNTER STATUS COMPREHENSIVE METABOLIC PANEL 4. Screening for thyroid disorder Z13.29 PATIENT ENCOUNTER STATUS TSH W/REFLEX 5. Screening for deficiency anemia Z13.0 PATIENT ENCOUNTER STATUS CBC W/DIFF AUTOMATED 6. Migraine without status migrainosus, not intractable, unspecified migraine type G43.909 MIGRAINE 7. Anxiety F41.9 ANXIETY 8. Family history of Christina thyroiditis Z83.49 FAMILY HISTORY OF CHRISTINA THYROIDITIS Recommendations and Plan: 1. Annual physical exam Recommend healthy diet and exercise. Recommend sun protection, wearing seatbelts. Recommend continue to follow with gynecology for yearly pelvic exams, Paps and cervical cancer screenings. She already had a normal mammogram. We will recheck mammogram at age 40 unless symptoms develop. She had a colonoscopy within the past 7 years that was normal. We will recheck this at age 45. - CBC W/DIFF AUTOMATED; Future - COMPREHENSIVE METABOLIC PANEL; Future - TSH W/REFLEX; Future - LIPID PANEL; Future 2. Screening, lipid - LIPID PANEL; Future 3. Screening for diabetes mellitus - COMPREHENSIVE METABOLIC PANEL; Future 4. Screening for thyroid disorder - TSH W/REFLEX; Future 5. Screening for deficiency anemia - CBC W/DIFF AUTOMATED; Future 6. Migraine without status migrainosus, not intractable, unspecified migraine type Recommend continue Ubrelvy as needed. Contact office if symptoms worsen or fail to respond to the Ubrelvy. 7. Anxiety Stable. Continue sertraline 25 mg daily 8. Family history of Christina thyroiditis We will check TSH with reflex. Follow up 1 year. Return to clinic with new, persistent, or worsening symptoms. Angela Alarcon is in agreement to and verbalized understanding of treatment plan with no further questions at this time. I spent 30 minutes obtaining history and performing exam. Time was also spent either ordering medications, tests, or ordering procedures. Time was also spent documenting the medical record, reviewingresults, and communicating test results to the patient. Patient should follow annual wellness exams recommended for age and sex of patient. Items to consider but not limited included yearly annual fasting labs, colonscopy or cologuard when indicated. PSA and prostate for males. Mammogram and female exam for females, Portions of this note were dictated using eelusion speech recognition software. Occasional wrong wordor sound-alike substitutions may have occurred due to the inherent limitations of voice recognition software. Please read the chart carefully and recognize, using context, where the substitutions may have occurred. Vonda Loya PA-C, evaluated and Dr Andre Ballard reviewed and agrees with plan. VONDA LOYA PA-C 03/14/2023 9:35 AM documented in this encounter Plan of Treatment Not on file documented as of this encounter Results * LIPID PANEL (03/14/2023 9:43 AM CDT) CHOLESTEROL 169 <200.0 MG/DL 03/14/2023 1:35 PM [facility] TRIGLYCERIDES 40 <150 MG/DL 03/14/2023 1:35 PM [facility] HDL 79 >40.0 MG/DL 03/14/2023 1:35 PM [facility] LDL (CALCULATED) 82 <100 MG/DL 03/14/20 1:35 PM T [facility] NON HDL CHOLESTEROL 90 <130 MG/DL 03/14 1:35 PM [facility] CHOL/HDL RATIO 2.1 0.0 - 4.5 03/14/2023 1:35 PM [facility] VLDL CALCULATION 8 5 - 55 MG/DL 03/14/2023 1:35 PM [facility] LIPID INTERPRETATION 03/14/2023 1:35 PM [facility] Comment: [facility] REPORT RECOMMENDATIONS: ?ADULT ?CHILD ??LOW RISK: ?CHOLESTEROL ? <200 ? <170 ?TRIGLYCERIDE ?<150 ?--- ?HDL ? >=60 ?--- ?LDL ? <100 ? <110 ??BORDERLINE: ?CHOLESTEROL ? 200-239 ?? 170-199 ?TRIGLYCERIDE ?150-199 ? --- ?HDL ?40-59 ?--- ?LDL ? 100-159 ?? 110-129 ??HIGH RISK: ?CHOLESTEROL ? >=240 ?>=200 ?TRIGLYCERIDE ?>=200 ? --- ?HDL ?<40 ?--- ?LDL ? >=160 ?>=130 03/14/2023 9:43 AM CDT Vonda Loya PA-C LABORATORY Final Result Performing Organization Address [facility] de Phone Number [facility] [id number] [place] [address], [place] [phone] * TSH W/REFLEX (03/14/2023 9:43 AM CDT) [facility] TSH 0.696 0.358 - 3.74 uIU/ML 03/14/2023 1:35 PM CDT [facility] Comment: HIGH DOSES OF BIOTIN MAY INTERFERE WITH THIS TEST RESULT. CORRELATION TO CLINICAL HISTORY AND PRESENTATION RECOMMENDED. FREE T4 NOT INDICATED 03/14/2023 9:43 AM CDT Vonda Loya PA-C LABORATORY Final Result Performing Organization Address [facility] de Phone Number [facility] [address] [place] [address], [place] [phone] * (ABNORMAL) COMPREHENSIVE METABOLIC PANEL (03/14/2023 9:43 AM CDT) [facility] GLUCOSE 86 70 - 99 MG/DL 03/14/2023 1:35 PM [facility] BUN 8 7 - 18 MG/DL 03/14/2023 1:35 PM [facility] CREATININE S/P/B 0.55 0.55 - 1.02 MG/DL 03/14/2023 1:35 PM [facility] SODIUM S/P/B 138 136 - 145 MMOL/L 03/14/2023 1:35 PM [facility] POTASSIUM S/P/B 4.9 3.5 - 5.1 MMOL/L 03/14/2023 1:35 PM [facility] CHLORIDE S/P/B 105 100 - 108 MMOL/L 03/14/2023 1:35 PM [facility] CO2 27.0 21 - 32 MMOL/L 03/14/2023 1:35 PM [facility] CALCIUM S/P/B 9.1 8.5 - 10.1 MG/DL 03/14/2023 1:35 PM [facility] BILIRUBIN TOTAL S/P/B 0.5 0.2 - 1.2 MG/DL 03/14/2023 1:35 PM [facility] TOTAL PROTEIN S/P/B 7.0 6.4 - 8.2 G/DL 03/14/2023 1:35 PM [facility] ALBUMIN S/P/B 4.1 3.4 - 5.0 G/DL 03/14/2023 1:35 PM [facility] AST 86(H) 15 - 37 U/L 03/14/2023 1:35 PM [facility] ALT 128(H) 14 - 55 U/L 03/14/2023 1:35 PM T [facility] ALKALINE PHOSPHATASE S/P/B 99 50 - 136 U/L 03/14/2023 1:35 PM CDT [facility] ANION GAP 6.0 5 - 15 MMOL/L 03/14/2023 1:35 PM CDT [facility] BUN CREATININE RATIO 14.5 6 - 26 03/14/2023 1:35 PM CDT [facility] A/G RATIO 1.4 1.0 - 2.0 RATIO 03/14/2023 1:35 PM CDT [facility] GFR ESTIMATE >90 >90 ML/MIN/1.7 3 M2 03/14/2023 1:35 PM CDT [facility] Comment: NOTE: eGFR is not calculated for patients <18 years of age. This is an estimated GFR calculation using the new CKD EPI creatinine equation without race and so does not require a correction factor for race. This estimated GFR should not be used for calculating drug doses. 03/14/2023 9:43 AM CDT us Vonda Loya PA-C LABORATORY Final Result [facility] [address] [place] [address], * (ABNORMAL) CBC W/DIFF AUTOMATED (03/14/2023 9:43 AM CDT) WBC 5.34 4.4 - 11.0 x10'3/uL 03/14/2023 12:50 PM CDT [facility] RBC 4.00(L) 4.50 - 5.10 x10'6/uL 03/14/2023 12:50 PM CDT [facility] HGB 11.4(L) 12.3 - 15.3 G/DL 03/14/2023 12:50 PM CDT [facility] HCT 36.9 35.9 - 44.6 % 03/14/2023 12:50 PM CDT [facility] MCV 92.3 80.0 - 96.0 FL 03/14/2023 12:50 PM CDT [facility] MCH 28.5 25.3 - 30.9 PG 03/14/2023 12:50 PM CDT [facility] MCHC 30.9(L) 31.0 - 34.1 G/DL 03/14/2023 12:50 PM CDT [facility] RDW 13.3 12.4 - 15.1 % 03/14/2023 12:50 PM CDT [facility] PLT 319 151 - 353 x10'3/uL 03/14/2023 12:50 PM CDT [facility] MPV 10.1 9.6 - 12.0 FL 03/14/2023 12:50 PM CDT [facility] RBC MORPHOLOGY NORMAL 03/14/2023 12:50 PM CDT [facility] PLT MORPH. NORMAL 03/14/2023 12:50 PM CDT [facility] WBC MORPHOLOGY NORMAL 03/14/2023 12:50 PM CDT [facility] LYMPHOCYTES % 35.4 15.8 - 45.0 % 03/14/2023 12:50 PM CDT [facility] NEUTROPHILS % 48.6 42.1 - 71.9 % 03/14/2023 12:50 PM CDT [facility] MONOCYTES % 12.0 5.7 - 12.5 % 03/14/2023 12:50 PM CDT [facility] EOSINOPHILS 3.2 0.0 - 5.6 % 03/14/2023 12:50 PM CDT [facility] BASOPHILS 0.6 0.0 - 1.3 % 03/14/2023 12:50 PM CDT [facility] ABS. NEUTROPHILS 2.60 1.40 - 6.00 x10'3/uL 03/14/2023 12:50 PM CDT [facility] IMMATURE GRANS % 0.2 0.0 - 0.5 % 03/14/2023 12:50 PM CDT [facility] ABS. LYMPHOCYTES 1.89 0.80 - 4.70 x10'3/uL 03/14/2023 12:50 PM CDT [facility] 03/14/2023 9:43 AM CDT us Vonda Loya PA-C LABORATORY Final Result [facility] [address] [place] [address], documented in this encounter Visit Diagnoses Diagnosis Annual physical exam- Primary Routine general medical examination at a health care facility Screening, lipid Screening for lipoid disorders Screening for diabetes mellitus Screening for thyroid disorder Screening for deficiency anemia Screening for other and unspecified deficiency anemia Migraine without status migrainosus, not intractable, unspecified migraine type Anxiety Anxiety state, unspecified Family history of Christina thyroiditis Family history of other endocrine and metabolic diseases documented in this encounter Care Teams Digester Hand Relationship Specialty Start Date End Date Vonda Loya PA-C [address] [place] [address] PCP - General PHYSICIAN CALCULATING MACHINE MECHANIC 02/27/23 documented as of this encounter
--- OUTSIDE RECORDS SUMMARY | 2024-05-27 15:05 | XMS_ITS | Encounter Summary ---
Author Organization [facility] Address [address] [place] [address]. [place] [address] Care Team Providers Care Cleat Feeder Name Role Phone Unavailable Primary Care Provider Unavailabl e Encounter Details Date Type Department Care Team (Latest Contact Info) Description 06/19/2018 Scan HEALTH INFO [facility]VCS Scanned, Documents Social [...]
--- OUTSIDE RECORDS SUMMARY | 2024-05-27 15:05 | XMS_ITS | Encounter Summary ---
Author Organization [facility] Address [address] [place] [address]. [place] [address] Care Team Providers Care Technical Report Writer Name Role Phone Unavailable Primary Care Provider Unavailabl e Encounter Details Date Type Department Care Team (Latest Contact Info) Description 11/22/2017 Scan HEALTH INFO [facility]VCS Scanned, Documents Social [...]
--- OUTSIDE RECORDS SUMMARY | 2024-05-27 15:05 | XMS_ITS | Encounter Summary ---
Author Organization [facility] Address [address] [place] [address]. [place] [address] Care Team Providers Care Reliability Technicians Name Role Phone Md Generic Lakeisha LOPEZ Primary Care Provider Unavailable David Lopez MD Primary Care Provider Unavailable David Lopez MD Primary Care Provider Unavailable Encounter Details Date Type Department Care Team (Latest Contact Info) Description 03/30/2015 Scan HEALTH INFO [facility]VCS Scanned, Documents Social [...] on filedocumented in this encounter Care Teams Reliability Technicians Relationship Specialty Start Date End Date David Lopez MD PCP - General 07/31/16 David Lopez MD PCP - General 03/16/16 David Lopez MD PCP - General 07/23/1203/15 documented as of this encounter
--- OUTSIDE RECORDS SUMMARY | 2024-05-27 15:05 | XMS_ITS | Encounter Summary ---
Author Organization [facility] Address [address] [place] [address]. [place] [address] Care Team Providers Care Dissolver Operator Name Role Phone Md Generic Lakeisha LOPEZ Primary Care Provider Unavailable David Lopez MD Primary Care Provider Unavailable David Lopez MD Primary Care Provider Unavailable Encounter Details Date Type Department Care Team (Latest Contact Info) Description 04/26/2014 Scan HEALTH INFO [facility]VCS Scanned, Documents Social [...] on filedocumented in this encounter Care Teams Dissolver Operator Relationship Specialty Start Date End Date David Lopez MD PCP - General 07/31/16 David Lopez MD PCP - General 03/16/16 David Lopez MD PCP - General 07/23/1203/15 documented as of this encounter
--- OUTSIDE RECORDS SUMMARY | 2024-05-27 15:05 | XMS_ITS | Encounter Summary ---
Author Organization [facility] Address [address] [place] [address]. [place], [place] [address] [place] [address] Care Team Providers Care Trash Truck Driver Name Role Phone Lena Meyer PA-C Primary Care Provider Encounter Details Date Type Department Care Team (Latest Contact Info) Description 03/14/2023 12:35 PM CDT - 03/14/2023 11:59 PM CDT Hospital Encounter [facility] [address] [place], [place] [phone] Lena Meyer PA-C [address] [facility] [address] [place], [place] [phone] Discharge Disposition: Home or Self Care (Routine [...] Procedure Name Priority Date/Time Associated Diagnosis Comments TSH W/REFLEX Routine 03/14/2023 9:43 AM CDT Annual physical exam Screening for thyroid disorder COMPREHENSIVE METABOLIC PANEL Routine 03/14/2023 9:43 AM CDT Annual physical exam Screening for diabetes mellitus LIPID PANEL Routine 03/14/2023 9:43 AM CDT Annual physical exam Screening, lipid CBC W/DIFF AUTOMATED Routine 03/14/2023 9:43 AM CDT Annual physical exam Screening for deficiency anemia documented in this encounter Results * (ABNORMAL) CBC W/DIFF AUTOMATED (03/14/2023 9:43 AM CDT) WBC 5.34 4.4 - 11.0 x10'3/uL 03/14/2023 12:[address] [facility] RBC 4.00(L) 4.50 - 5.10 x10'6/uL 03/14/2023 12:[address] [facility] HGB 11.4(L) 12.3 - 15.3 G/DL 03/14/2023 12:[address] [facility] HCT 36.9 35.9 - 44.6 % 03/14/2023 12:[address] [facility] MCV 92.3 80.0 - 96.0 FL 03/14/2023 12:[address] [facility] MCH 28.5 25.3 - 30.9 PG 03/14/2023 12:[address] [facility] MCHC 30.9(L) 31.0 - 34.1 G/DL 03/14/2023 12:[address] [facility] RDW 13.3 12.4 - 15.1 % 03/14/2023 12:[address] [facility] PLT 319 151 - 353 x10'3/uL 03/14/2023 12:[address] [facility] MPV 10.1 9.6 - 12.0 FL 03/14/2023 12:[address] [facility] RBC MORPHOLOGY NORMAL 03/14/2023 12:[address] [facility] PLT MORPH. NORMAL 03/14/2023 12:[address] [facility] WBC MORPHOLOGY NORMAL 03/14/2023 12:[address] [facility] LYMPHOCYTES % 35.4 15.8 - 45.0 % 03/14/2023 12:[address] [facility] NEUTROPHILS % 48.6 42.1 - 71.9 % 03/14/2023 12:[address] [facility] MONOCYTES % 12.0 5.7 - 12.5 % 03/14/2023 12:[address] [facility] EOSINOPHILS 3.2 0.0 - 5.6 % 03/14/2023 12:[address] [facility] BASOPHILS 0.6 0.0 - 1.3 % 03/14/2023 12:[address] [facility] ABS. NEUTROPHILS 2.60 1.40 - 6.00 x10'3/uL 03/14/2023 12:[address] [facility] IMMATURE GRANS % 0.2 0.0 - 0.5 % 03/14/2023 12:[address] [facility] ABS. LYMPHOCYTES 1.89 0.80 - 4.70 x10'3/uL 03/14/2023 12:[address] [facility] 03/14/2023 9:43 AM CDT us Lena Meyer PA-C LABORATORY Final Result [facility] [address] [place] [address], [place] [phone] * (ABNORMAL) COMPREHENSIVE METABOLIC PANEL (03/14/2023 9:43 AM CDT) Pathologist [facility] GLUCOSE 86 70 - 99 MG/DL 03/14/2023 1:[address] [facility] BUN 8 7 - 18 MG/DL 03/14/2023 1:[address] [facility] CREATININE S/P/B 0.55 0.55 - 1.02 MG/DL 03/14/2023 1:[address] [facility] SODIUM S/P/B 138 136 - 145 MMOL/L 03/14/2023 1:[address] [facility] POTASSIUM S/P/B 4.9 3.5 - 5.1 MMOL/L 03/14/2023 1:[address] [facility] CHLORIDE S/P/B 105 100 - 108 MMOL/L 03/14/2023 1:[address] [facility] CO2 27.0 21 - 32 MMOL/L 03/14/2023 1:[address] [facility] CALCIUM S/P/B 9.1 8.5 - 10.1 MG/DL 03/14/2023 1:[address] [facility] BILIRUBIN TOTAL S/P/B 0.5 0.2 - 1.2 MG/DL 03/14/2023 1:[address] [facility] TOTAL PROTEIN S/P/B 7.0 6.4 - 8.2 G/DL 03/14/2023 1:[address] [facility] ALBUMIN S/P/B 4.1 3.4 - 5.0 G/DL 03/14/2023 1:[address] [facility] AST 86(H) 15 - 37 U/L 03/14/2023 1:[address] [facility] ALT 128(H) 14 - 55 U/L 03/14/2023 1:[address] [facility] ALKALINE PHOSPHATASE S/P/B 99 50 - 136 U/L 03/14/2023 1:[address] [facility] ANION GAP 6.0 5 - 15 MMOL/L 03/14/2023 1:[address] [facility] BUN CREATININE RATIO 14.5 6 - 26 03/14/2023 1:[address] [facility] A/G RATIO 1.4 1.0 - 2.0 RATIO 03/14/2023 1:[address] [facility] GFR ESTIMATE >90 >90 ML/MIN/1.7 3 M2 03/14/2023 1:[address] [facility] Comment: NOTE: eGFR is not calculated for patients <18 years of age. This is an estimated GFR calculation using the new CKD EPI creatinine equation without race and so does not require a correction factor for race. This estimated GFR should not be used for calculating drug doses. 03/14/2023 9:43 AM CDT us Lena Meyer PA-C LABORATORY Final Result [facility] [address] [place] [address], [place] [phone] * TSH W/REFLEX (03/14/2023 9:43 AM CDT) TSH 0.696 0.358 - 3.74 uIU/ML 03/14/2023 1:[address] [facility] Comment: HIGH DOSES OF BIOTIN MAY INTERFERE WITH THIS TEST RESULT. CORRELATION TO CLINICAL HISTORY AND PRESENTATION RECOMMENDED. FREE T4 NOT INDICATED 03/14/2023 9:43 AM CDT Lena Meyer PA-C LABORATORY Final Result [facility] [address] [place] [address], * LIPID PANEL (03/14/2023 9:43 AM CDT) CHOLESTEROL 169 <200.0 MG/DL 03/14/2023 1:[address] [facility] TRIGLYCERIDES 40 <150 MG/DL 03/14/2023 1:35 PM [facility] HDL 79 >40.0 MG/DL 03/14/2023 1:[address] [facility] LDL (CALCULATED) 82 <100 MG/DL 03/14/20 1:35 PM [facility] NON HDL CHOLESTEROL 90 <130 MG/DL 03/14 1:[address] [facility] CHOL/HDL RATIO 2.1 0.0 - 4.5 03/14/2023 1:[address] [facility] VLDL CALCULATION 8 5 - 55 MG/DL 03/14/2023 1:[address] [facility] LIPID INTERPRETATION 03/14/2023 1:35 PM [facility] Comment: NIH CONCENSUS REPORT RECOMMENDATIONS: ?ADULT ?CHILD ??LOW RISK: ?CHOLESTEROL ? <200 ? <170 ?TRIGLYCERIDE ?<150 ?--- ?HDL ? >=60 ?--- ?LDL ? <100 ? <110 ??BORDERLINE: ?CHOLESTEROL ? 200-239 ?? 170-199 ?TRIGLYCERIDE ?150-199 ? --- ?HDL ?40-59 ?--- ?LDL ? 100-159 ?? 110-129 ??HIGH RISK: ?CHOLESTEROL ? >=240 ?>=200 ?TRIGLYCERIDE ?>=200 ? --- ?HDL ?<40 ?--- ?LDL ? >=160 ?>=130 03/14/2023 9:43 AM CDT us Lena Meyer PA-C LABORATORY Final Result Performing Organization Address City/State/[facility] Co de Phone Number [facility] [address] [place] [address], [place] [phone] documented in this encounter Visit Diagnoses Diagnosis Annual physical exam Routine general medical examination at a health care facility Screening, lipid Screening for lipoid disorders Screening for thyroid disorder Screening for diabetes mellitus Screening for deficiency anemia Screening for other and unspecified deficiency anemia documented in this encounter Care Teams Trash Truck Driver Relationship Specialty Start Date End Date Lena Meyer PA-C [address] [place] [address] PCP - General PHYSICIAN BELLY DANCER 02/27/23 documented as of this encounter
--- OUTSIDE RECORDS SUMMARY | 2024-05-27 15:05 | XMS_ITS | Encounter Summary ---
Author Organization [facility] Address [address] [place] [address]. [place] [id number] [place] [address] Care Team Providers Care Bin Filler Name Role Phone Lena Meyer PA-C Primary Care Provider [phone] Encounter Details Date Type Department Care Team (Late st Contact Info) Description 03/14/2023 9:40 AM CDT Laboratory Only [facility] Family & Internal Medicine [address] [phone] Lena Meyer PA-C [address] [place] [address] Social History Tobacco Use Types Packs/Day Years [...] Associated Diagnosis Comments VENIPUNC ARM DRAW Routine 03/14/2023 9:45 AM CDT Annual physical exam Screening for deficiency anemia Screening for diabetes mellitus Screening for thyroid disorder Screening, lipid documented in this encounter Visit Diagnoses Diagnosis Annual physical exam- Primary Routine general medical examination at a health care facility Screening for deficiency anemia Screening for other and unspecified deficiency anemia Screening for diabetes mellitus Screening for thyroid disorder Screening, lipid Screening for lipoid disorders documented in this encounter Care Teams Bin Filler Relationship Specialty Start Date End Date Lena Meyer PA-C [address] [place] [address] PCP - General PHYSICIAN DICTIONARY EDITOR 02/27/23 documented as of this encounter
--- OUTSIDE RECORDS SUMMARY | 2024-05-27 15:05 | XMS_ITS | Encounter Summary ---
Author Organization [facility] Address [address] [place] [address]. [place], [place] [phone] [place] [address] Care Team Providers Care Marbleizing Machine Tender Name Role Phone Md, Generic Conversion Primary Care Provider Unavailable Md, Generic Conversion Primary Care Provider Unavailable Encounter Details Date Type Department Care Team (Late st Contact Info) Description 03/16/2016 Abstract [facility] [address] [place], [place] [phone] Livan Mo, HANNAH [address] [facility] [address] [place], [place] [address] Social History Tobacco Use Types Packs/Day Years [...] Procedure Name Priority Date/Time Associated Diagnosis Comments CULTURE STREP A Routine 03/16/2016 11:51 AM CDT RAPID STREP A STAT 03/16/2016 11:51 AM CDT documented in this encounter Results * CULTURE STREP A (03/16/2016 11:51 AM CDT) SPEC DESCRIPTION THROAT 03/16/2016 12:11 PM CDT [facility] SPECIAL REQUESTS NO SPECIAL REQUEST 03/16/2016:11 PM CDT [facility] CULTURE RESULT NO STREPTOCOCCUS PYOGENES (GROUP A) ISOLATED 03/18/2016 2:52 PM CDT [facility] THROAT SWAB / Unknown 03/16/2016 11:51 AM CDT 03/16/2016 12:11 PM CDT us Generic Conversion Md LOPEZ MICROBIOLOGY - GENERAL ORDERABLES Final Result Performing Organization Address [facility] Co de Phone Number [facility] [address] [place] [address], [place] [phone] * RAPID STREP A (03/16/2016 11:51 AM CDT) SPECIMEN TYPE THROAT 03/16/2016 11:51 AM CDT [facility] RAPID STREP TEST NEGATIVE NEGATIVE 03/16/2016 12:10 PM CDT [facility] Comment: TESTING PERFORMED AT [facility] [address] [place] [address] JUANA WALLS M.D., GROUND SUPPORT EQUIPMENT FITTER THROAT SWAB / Unknown 03/16/2016 11:51 AM CDT 03/16/2016 12:04 PM CDT us Generic Conversion Md LOPEZ MICROBIOLOGY - GENERAL ORDERABLES Final Result Performing Organization Address City/[facility] Co de Phone Number [facility] [address] [place] [address], [place] [phone] documented in this encounter Visit Diagnoses Diagnosis Acute pharyngitis documented in this encounter Care Teams Marbleizing Machine Tender Relationship Specialty Start Date End Date David Lopez MD PCP - General 07/31/16 David Lopez MD PCP - General 03/16/16 documented as of this encounter
--- OUTSIDE RECORDS SUMMARY | 2024-05-27 15:05 | XMS_ITS | Encounter Summary ---
Author Organization [facility] Address [address] [place] [address]. [place] [address] Care Team Providers Care Manager Programming Name Role Phone David Ross MD Primary Care Provider Unavailable Encounter Details Date Type Department Care Team (Latest Contact Info) Description 11/09/2016 Scan HEALTH INFO SRVCS Scanned, Documents Social [...] on filedocumented in this encounter Care Teams Manager Programming Relationship Specialty Start Date End Date David Ross MD PCP - General 07/31/16 documented as of this encounter
--- OUTSIDE RECORDS SUMMARY | 2024-05-27 15:05 | XMS_ITS | Encounter Summary ---
Author Organization [facility] Address [address] [place] [address]. [address] [address] Care Team Providers Care Senior Marketing Engineer Name Role Phone Unavailable Primary Care Provider Unavailabl e Reason for Visit * Reason Comments Lab (SCAN) Encounter Details Date Type Department Care Team (Latest Contact Info) Description 06/26/2018 Scan [facility] INFO SRVCS Scanned, Documents Lab (SCAN) Social History Tobacco Use Types Packs/Day Years [...] Procedure Name Priority Date/Time Associated Diagnosis Comments OUTSIDE LAB (SCAN ORDER) 06/26/2018 documented in this encounter Results * OUTSIDE LAB (SCAN) (06/26/2018) 06/26/2018 Narrative 06/26/2018 Ordered by an unspecified provider. us Documents Scanned SCANNING Final Result documented in this encounter Visit Diagnoses Not on filedocumented in this encounter
--- OUTSIDE RECORDS SUMMARY | 2024-05-27 15:05 | XMS_ITS | Encounter Summary ---
Author Organization [facility] Address [address] [place] [address]. [place], [place] [address] [place] [address] Care Team Providers Care Press Tender Incendiary Grenade Name Role Phone , Generic Conversion Primary Care Provider Unavailable Encounter Details Date Type Department Care Team (Late st Contact Info) Description 07/31/[address] [address] Hayley Hardy, CH[place] Social History Tobacco Use Types Packs/Day Years [...] Procedure Name Priority Date/Time Associated Diagnosis Comments INFLUENZA A & B STAT 07/31/2016 4:00 PM [facility] documented in this encounter Results * (ABNORMAL) INFLUENZA A & B (07/31/2016 4:00 PM [facility]) SPECIMEN TYPE NASAL 07/31/2016 5:02 PM [facility] INFLUENZA A POSITIVE(A) NEGATIVE 07/31/2016 5:05 PM [facility] Comment: TESTING PERFORMED AT [facility] [address] [place] [address] ??[id number] JUANA WALLS M.D., SUPERVISOR CHAR HOUSE INFLUENZA B NEGATIVE NEGATIVE 07/31/2016 5:05 PM [facility] Comment: Interpretation: Positive for Influenza Type A. This test can not distinguish influenza A virus subtypes. For example, this test cannot distinguish influenza infections caused by novel influenza A viruses versus seasonal influenza A viruses. 07/31/2016 4:00 PM [facility] 07/31/2016 5:02 PM [facility] us Generic Conversion Md LOPEZ MICROBIOLOGY - GENERAL ORDERABLES Final Result [facility] [address] [place] [address], [place] [phone] documented in this encounter Visit Diagnoses Diagnosis Other specified diseases and conditions complicating , childbirth and the puerperium documented in this encounter Care Teams Press Tender Incendiary Grenade Relationship Specialty Start Date End Date David Lopez MD PCP - General 07/31/16 documented as of this encounter
--- OUTSIDE RECORDS SUMMARY | 2024-05-27 15:05 | XMS_ITS | Encounter Summary ---
Author Organization [facility] Address [address] [place] [address]. [place] [address] Care Team Providers Care Hr Leader Name Role Phone Unavailable Primary Care Provider Unavailabl e Encounter Details Date Type Department Care Team (Latest Contact Info) Description 07/01/2021 Scan HEALTH INFO SRVCS Scanned, Documents Social [...]
--- OUTSIDE RECORDS SUMMARY | 2024-05-27 15:05 | XMS_ITS | Encounter Summary ---
Author Organization [facility] Address [address] [place] [address]. [place], [place] [phone] [place] [address] Care Team Providers Care Industrial Arts Teacher Name Role Phone Md, Generic Conversion Primary Care Provider Unavailable Md, Generic Conversion Primary Care Provider Unavailable Md, Generic Conversion MD Primary Care Provider Unavailable Reason for Visit * Reason Comments ECG (SCAN) Lab (SCAN) Encounter Details Date Type Department Care Team ([facility] Contact Info) Description 03/26/2014 Scan HEALTH INFO SRVCS Scanned, Documents ECG (SCAN); Lab (SCAN) Social History Tobacco Use Types [...] Procedure Name Priority Date/Time Associated Diagnosis Comments ECG GENERIC (SCAN ORDER) 03/26/2014 OUTSIDE LAB (SCAN ORDER) 03/26/2014 OUTSIDE LAB (SCAN ORDER) 03/26/2014 OUTSIDE LAB (SCAN ORDER) 03/26/2014 documented in this encounter Results * OUTSIDE LAB (SCAN) (03/26/2014) 03/26/2014 Narrative 03/26/2014 Ordered by an unspecified provider. us Documents Scanned SCANNING Final Result * OUTSIDE LAB (SCAN) (03/26/2014) 03/26/2014 Narrative 03/26/2014 Ordered by an unspecified provider. us Documents Scanned SCANNING Final Result * OUTSIDE LAB (SCAN) (03/26/2014) 03/26/2014 Narrative 03/26/2014 Ordered by an unspecified provider. us Documents Scanned SCANNING Final Result * ECG GENERIC (03/26/2014) 03/26/2014 Narrative 03/26/2014 Ordered by an unspecified provider. us Documents Scanned SCANNING Final Result documented in this encounter Visit Diagnoses Not on filedocumented in this encounter Care Teams Industrial Arts Teacher Relationship Specialty Start Date End Date Md Generic ConversionMD PCP - General 07/31/16 Md Generic ConversionMD PCP - General 03/16/16 Md Generic ConversionMD PCP - General 07/23/1203/15 documented as of this encounter
--- OUTSIDE RECORDS SUMMARY | 2024-05-27 15:05 | XMS_ITS | Encounter Summary ---
Author Organization [facility] Address [address] [place] [address]. [place] [address] Care Team Providers Care It Security Manager Name Role Phone Md Generic Lakeisha LOPEZ Primary Care Provider Unavailable David Lopez MD Primary Care Provider Unavailable David Lopez MD Primary Care Provider Unavailable Encounter Details Date Type Department Care Team (Latest Contact Info) Description 04/15/2014 Scan HEALTH INFO SRVCS Scanned, Documents Social [...] on filedocumented in this encounter Care Teams It Security Manager Relationship Specialty Start Date End Date David Lopez MD PCP - General 07/31/16 David Lopez MD PCP - General 03/16/16 David Lopez MD PCP - General 07/23/1203/15 documented as of this encounter
--- OUTSIDE RECORDS SUMMARY | 2024-05-27 15:05 | XMS_ITS | Encounter Summary ---
Author Organization [facility] Address [address] [place] [address]. [place], [place] [phone] [place] [address] Care Team Providers Care Pharmacy Care Coordinator Name Role Phone Md Generic Conversion Primary Care Provider Unavailable Md Generic Conversion Primary Care Provider Unavailable Md Generic Lakeisha LOPEZ Primary Care Provider Unavailable Md Generic Conversion Primary Care Provider Unavailable Md Generic Conversion Primary Care Provider Unavailable Encounter Details Date Type Department Care Team (Late st Contact Info) Description 05/07/2012 Emergency [facility] [place] [address] Jerson Oropeza MD [address] [place] [address] [place] [address] Social History Tobacco Use Types Packs/Day Years Used Date Smoking Tobacco: Never Assessed Comments Unknown Sex and Gender Information Value Date Recorded Sex Assigned at Not on file Legal Sex Female 7:59 PM CDT Gender Identity Not on file Sexual Orientation Not on file documented as of this encounter Plan of Treatment Not on file documented as of this encounter Visit Diagnoses Diagnosis Abdominal pain, right upper quadrant documented in this encounter Care Teams Pharmacy Care Coordinator Relationship Specialty Start Date End Date David Lopez MD PCP - General 07/31/16 Md Generic ConversionMD PCP - General 03/16/16 Md Generic MD Lakeisha PCP - General 07/23/1203/15 Md Generic MD Lakeisha PCP - General 07/10/12 Md Generic ConversionMD PCP - General 05/07/12 3 documented as of this encounter
--- OUTSIDE RECORDS SUMMARY | 2024-05-27 15:05 | XMS_ITS | Encounter Summary ---
Author Organization [facility] Address [facility]. [place], [place] [address] [place] [address] Care Team Providers Care Research Recruiter Name Role Phone Md Generic Conversion Primary Care Provider Unavailable Md Generic Conversion Primary Care Provider Unavailable Md Generic Conversion Primary Care Provider Unavailable Md Generic Conversion Primary Care Provider Unavailable Encounter Details Date Type Department Care Team (Late st Contact Info) Description 07/10/2012 Abstract [facility] [address] [facility] [place] [address] Shiloh Schafer MD [address] [address] Social History Tobacco Use Types Packs/Day Years [...] of this encounter Visit Diagnoses Diagnosis Acute bronchitis documented in this encounter Care Teams Research Recruiter Relationship Specialty Start Date End Date David Ross ConversionMD PCP - General 07/31/16 Md Generic ConversionMD PCP - General 03/16/16 Md Generic ConversionMD PCP - General 07/23/1203/15 Md Generic ConversionMD PCP - General 07/10/12 documented as of this encounter
--- OUTSIDE RECORDS SUMMARY | 2024-05-27 15:05 | XMS_ITS | Encounter Summary ---
Author Organization [facility] Address [facility]. [place], [place] [address] [place] [address] Care Team Providers Care Head Coach Name Role Phone Md Generic Conversion Primary Care Provider Unavailable Md Generic Conversion Primary Care Provider Unavailable Md Generic Conversion Primary Care Provider Unavailable Encounter Details Date Type Department Care Team (Late st Contact Info) Description 07/23/2012 Abstract [facility] [address] [facility] [place], [place] [id number] Randall Meade MD [address] [place] [address] Social History Tobacco Use Types Packs/Day Years [...] bronchitis documented in this encounter Care Teams Head Coach Relationship Specialty Start Date End Date Md Generic MD Lakeisha PCP - General 07/31/16 David Ross MD PCP - General 03/16/16 David Ross MD PCP - General 07/23/1203/15 documented as of this encounter
--- OUTSIDE RECORDS SUMMARY | 2024-05-27 15:05 | XMS_ITS | Encounter Summary ---
Author Organization [facility] Address [address] [place] [address]. [place] [address] Care Team Providers Care Firer Tunnel Kiln Name Role Phone Md Generic Lakeisha LOPEZ Primary Care Provider Unavailable David Lopez MD Primary Care Provider Unavailable David Lopez MD Primary Care Provider Unavailable Encounter Details Date Type Department Care Team (Latest Contact Info) Description 08/05/2014 Scan HEALTH INFO SRVCS Scanned, Documents Social [...] on filedocumented in this encounter Care Teams Firer Tunnel Kiln Relationship Specialty Start Date End Date David Lopez MD PCP - General 07/31/16 David Lopez MD PCP - General 03/16/16 David Lopez MD PCP - General 07/23/1203/15 documented as of this encounter
--- OUTSIDE RECORDS SUMMARY | 2024-05-27 15:05 | XMS_ITS | Encounter Summary ---
Author Organization [facility] Address [address] [place] [address]. [address] [address] Care Team Providers Care Sleeve Maker Name Role Phone Md Generic Lakeisha LOPEZ Primary Care Provider Unavailable David Lopez MD Primary Care Provider Unavailable David Lopez MD Primary Care Provider Unavailable Reason for Visit * Reason Comments Lab (SCAN) Encounter Details Date Type Department Care Team (Latest Contact Info) Description 04/03/2014 Scan HEALTH INFO SRVCS Scanned, Documents Lab (SCAN) [...] Associated Diagnosis Comments OUTSIDE LAB (SCAN ORDER) 04/03/2014 documented in this encounter Results * OUTSIDE LAB (SCAN) (04/03/2014) 04/03/2014 Narrative 04/03/2014 Ordered by an unspecified provider. us Documents Scanned SCANNING Final Result documented in this encounter Visit Diagnoses Not on filedocumented in this encounter Care Teams Sleeve Maker Relationship Specialty Start Date End Date David Lopez MD PCP - General 07/31/16 David Lopez MD PCP - General 03/16/16 David Lopez MD PCP - General 07/23/1203/15 documented as of this encounter
--- OUTSIDE RECORDS SUMMARY | 2024-05-27 15:05 | XMS_ITS | Encounter Summary ---
Author Organization [facility] Address [address] [place] [address]. [place] [address] Care Team Providers Care Concrete Mixing Truck Driver Name Role Phone Md Generic Lakeisha LOPEZ Primary Care Provider Unavailable David Lopez MD Primary Care Provider Unavailable David Lopez MD Primary Care Provider Unavailable Encounter Details Date Type Department Care Team (Latest Contact Info) Description 11/25/2014 Scan HEALTH INFO SRVCS Scanned, Documents Social [...] on filedocumented in this encounter Care Teams Concrete Mixing Truck Driver Relationship Specialty Start Date End Date David Lopez MD PCP - General 07/31/16 David Lopez MD PCP - General 03/16/16 David Lopez MD PCP - General 07/23/1203/15 documented as of this encounter
--- OUTSIDE RECORDS SUMMARY | 2024-05-27 15:05 | XMS_ITS | Encounter Summary ---
Author Organization [facility] Address [address] [place] [address]. [place] [address] Care Team Providers Care Plant Tech Name Role Phone Unavailable Primary Care Provider Unavailabl e Reason for Visit * Reason Comments Lab (SCAN) Encounter Details Date Type Department Care Team (Latest Contact Info) Description 06/21/2018 Scan [facility] HEALTH INFO SRVCS Scanned, Documents [...] Associated Diagnosis Comments OUTSIDE LAB (SCAN ORDER) 06/21/2018 documented in this encounter Results * OUTSIDE LAB (SCAN) (06/21/2018) 06/21/2018 Narrative 06/21/2018 Ordered by an unspecified provider. us Documents Scanned SCANNING Final Result documented in this encounter Visit Diagnoses Not on filedocumented in this encounter
--- OUTSIDE RECORDS SUMMARY | 2024-05-27 15:05 | XMS_ITS | Encounter Summary ---
Author Organization [facility] [place] [facility] Address [address] [place] [address]. [place], [place] [address] [place] [address] Care Team Providers Care Visual Inspector Name Role Phone Md, Generic Conversion Primary Care Provider Unavailable Md, Generic Conversion Primary Care Provider Unavailable Md, Generic Conversion Primary Care Provider Unavailable Reason for Visit * Reason Comments Generic Orders (SCAN) Encounter Details Date Type Department Care Team ([facility] Contact Info) Description 05/15/2014 Scan HEALTH INFO SRVCS Scanned, Documents Generic Orders (SCAN) Social History Tobacco Use Types Packs/Day [...] Procedure Name Priority Date/Time Associated Diagnosis Comments LINING PARTS SEWER 05/15/2014 LINING PARTS SEWER 05/15/2014 documented in this encounter Results * LINING PARTS SEWER (05/15/2014) 05/15/2014 Narrative 05/15/2014 Ordered by an unspecified provider. us Documents Scanned SCANNING Final Result * LINING PARTS SEWER (05/15/2014) 05/15/2014 Narrative 05/15/2014 Ordered by an unspecified provider. us Documents Scanned SCANNING Final Result documented in this encounter Visit Diagnoses Not on filedocumented in this encounter Care Teams Visual Inspector Relationship Specialty Start Date End Date Md Generic Conversion, PCP - General 07/31/16 Md Generic Conversion, PCP - General 03/16/16 Md Generic Conversion, PCP - General 07/23/1203/15 documented as of this encounter
--- OUTSIDE RECORDS SUMMARY | 2024-05-27 15:05 | XMS_ITS | Encounter Summary ---
Author Organization [facility] Address [address] [place] [address]. [place] [address] Care Team Providers Care White Sugar Pan Tank Operator Name Role Phone David Ross MD Primary Care Provider Unavailable David Ross MD Primary Care Provider Unavailable Encounter Details Date Type Department Care Team (Latest Contact Info) Description 05/11/2016 Scan HEALTH INFO SRVCS Scanned, Documents Social [...] on filedocumented in this encounter Care Teams White Sugar Pan Tank Operator Relationship Specialty Start Date End Date David Ross MD PCP - General 07/31/16 David Ross MD PCP - General 03/16/16 documented as of this encounter
--- OUTSIDE RECORDS SUMMARY | 2024-05-27 15:05 | XMS_ITS | Encounter Summary ---
Author Organization [facility] Address [address] [place] [address]. [place], [place] [address] [place] [address] Care Team Providers Care Infrastructure Engineer Name Role Phone David Ross MD Primary Care Provider Unavailable Encounter Details Date Type Department Care Team (Late st Contact Info) Description 04/08/2017 [place] [address] David Ross MD Social History Tobacco Use Types Packs/Day Years [...] on filedocumented in this encounter Care Teams Infrastructure Engineer Relationship Specialty Start Date End Date David Ross MD PCP - General 07/31/16 documented as of this encounter
--- OUTSIDE RECORDS SUMMARY | 2024-05-27 15:05 | XMS_ITS | Encounter Summary ---
Author Organization [facility] Address [facility] [place] [address] Care Team Providers Care Produce Assistant Name Role Phone Md Generic Conversion Primary Care Provider Unavailable Md Generic Conversion Primary Care Provider Unavailable Md Generic Conversion Primary Care Provider Unavailable Md Generic Conversion Primary Care Provider Unavailable Md Generic Conversion Primary Care Provider Unavailable Encounter Details Date Type Department Care Team (Latest Contact Info) Description 11/03/2005 Scan [facility]ee SRVCS Scanned, Documents Social History Tobacco Use [...] on filedocumented in this encounter Care Teams Produce Assistant Relationship Specialty Start Date End Date Md Generic ConversionMD PCP - General 07/31/16 Md Generic ConversionMD PCP - General 03/16/16 Md Generic ConversionMD PCP - General 07/23/1203/15 Md Generic ConversionMD PCP - General 07/10/12 Md Generic ConversionMD PCP - General 05/07/12 3 documented as of this encounter
--- OUTSIDE RECORDS SUMMARY | 2024-05-27 15:05 | XMS_ITS | Encounter Summary ---
Author Organization [facility] Address [address] [place] [address]. [place] [address] Care Team Providers Care Drawing Hand Name Role Phone Unavailable Primary Care Provider Unavailabl e Encounter Details Date Type Department Care Team (Latest Contact Info) Description 06/04/2018 Scan HEALTH INFO SRVCS Scanned, Documents Social [...]
--- OUTSIDE RECORDS SUMMARY | 2024-05-27 15:09 | XMS_ITS | Encounter Summary ---
Author Organization [facility] Address [address] [facility] Attn: [place] [address] Care Team Providers Care Educational Institution President Name Role Phone Terrie Manning MD Primary Care Provider [phone]- [phone] Encounter Details Date Type Department Care Team (Latest Contact Info) Description 02/26/2020 Travel Social History Tobacco Use Types Packs/Day Years Used Date Smoking Tobacco: Never Smokeless Tobacco: Never Alcohol Use Standard Drinks/Week Comments Not Currently 0 (1 standard drink = 0.6 oz pur e alcohol) Socially Comments Yes Sex and Gender Information Value Date Recorded Sex Assigned at Not on file Gender Identity Not on file Sexual Orientation Not on file COVID-19 Exposure Response Date Recorded In the last month, have you been in contact with someone who was confirmed or suspected to have Coronavirus / COVID-19? No / Unsure 02/26/2020 10:30 AM CDT documented as of this encounter Plan of Treatment Upcoming Encounters Date Type Department Care Team (Late st Contact Info) Description 10/08/2024 9:45 AM CDT Office Visit [facility] KILN PUSHER - Medical [place] [address] [place] [phone] Terrie Manning MD [address] [address] documented as of this encounter Visit Diagnoses Not on filedocumented in this encounter Care Teams Educational Institution President Relationship Specialty Start Date End Date Terrie Manning MD PCP - General Obstetrics and Gynecology 05/27/13 documented as of this encounter
--- OUTSIDE RECORDS SUMMARY | 2024-05-27 15:09 | XMS_ITS | Encounter Summary ---
Author Organization [facility] Address [address] [place] [address] Care Team Providers Care Traffic Law Attorney Name Role Phone Unavailable Primary Care Provider Unavailabl e Reason for Visit * Reason Comments Post- Care Encounter Details Date Type Department Care Team (Late st Contact Info) Description 07/03/2020 1:00 PM OWNER OPERATOR Office Visit [facility] DAY CARE WORKER - Medical [address] [address] Terrie Manning MD [address] [place] [address] Surgery follow-up (Primary Dx) Social History Tobacco Use Types Packs/Day Years Used Date Smoking Tobacco: Never Smokeless Tobacco: Never Alcohol Use Standard Drinks/Week Comments Not Currently 0 (1 standard drink = 0.6 oz pur e alcohol) Socially Sex and Gender Information Value Date Recorded Sex Assigned at Not on file Gender Identity Not on file Sexual Orientation Not on file COVID-19 Exposure Response Date Recorded In the last month, have you been in contact with someone who was confirmed or suspected to have Coronavirus / COVID-19? No / Unsure 07/03/2020 1:03 PM OWNER OPERATOR documented as of this encounter Last Filed Vital Signs Vital Sign Reading Time Taken Comments Blood Pressure 114/70 07/03/2020 1:08 PM OWNER OPERATOR Pulse - - Temperature - - Respiratory Rate - - Oxygen Saturation - - Inhaled Oxygen Concentration - - Weight 81.1 kg (178 lb 12.8 oz) 07/03/2020 1:08 PM OWNER OPERATOR Height - - Body Mass Index 25.66 06/19/2020 6:19 AM OWNER OPERATOR documented in this encounter Progress Notes * Terrie Manning MD - 07/03/2020 1:16 PM CST Chief Complaint: Patient here for section incision inspection HPI: Angela Alarcon is a 34 y.o. who delivered by low-transverse section. Patient has been doing well and presents today for inspection of her incision. Denies drainage, erythema at incision site, or fevers. Overall recovering well. Pain well controlled. Bowel and bladder function is normal. Patient is coping well with parenting. She is having signs of depression or anxiety. Physical Exam: Vitals: 07/03/20 1308 BP: 114/70 BP Location: Left arm Patient Position (BP): Sitting BP Cuff Size: Adult Weight: 81.1 kg (178 lb 12.8 oz) Abdomen: Soft, non tender, non distended. No rebound or guarding. Incision: Clean, dry, intact. Skin edges well approximated. No erythema or induration. Assessment and Plan: Angela Alarcon is a 34 y.o. who delivered by section 2 weeks ago who is here today for incision inspection. 1. Patient recovering well and incision healing well. 2. Pain controlled. 3. Return to office in 4 weeks for post visit. 4. Continue modified activities as tolerated. Call for problems. Terrie Manning MD R OPERATOR documented in this encounter Plan of Treatment Upcoming Encounters Date Type Department Care Team (Late st Contact Info) Description 10/08/2024 9:45 AM CDT Office Visit [facility] DAY CARE WORKER - [facility] [address] [facility] [address] [place] [address] Terrie Manning MD [address] [place] [address] documented as of this encounter Visit Diagnoses Diagnosis Surgery follow-up- Primary Follow-up examination, following unspecified surgery documented in this encounter
--- OUTSIDE RECORDS SUMMARY | 2024-05-27 15:09 | XMS_ITS | Encounter Summary ---
Author Organization [facility] Address [address] [facility] Attn: [place] [address] Care Team Providers Care Acoustics Teacher Name Role Phone Unavailable Primary Care Provider Unavailabl e Encounter Details Date Type Department Care Team (Latest Contact Info) Description 11/22/2022 Travel Social History Tobacco Use Types Packs/Day Years Used Date Smoking Tobacco: Never Smokeless Tobacco: Never Alcohol Use Standard Drinks/Week Comments Yes 0 (1 standard drink = 0.6 oz pur e alcohol) 2-3 drinks a month Sex and Gender Information Value Date Recorded Sex Assigned at Not on file Gender Identity Not on file Sexual Orientation Not on file COVID-19 Exposure Response Date Recorded In the last 10 days, have yo u been in contact with someone who was confirmed or suspected to have Coronavirus/COVID-19? No / Unsure 11/22/2022 7:43 AM CDT documented as of this encounter Plan of Treatment Upcoming Encounters Date Type Department Care Team (Late st Contact Info) Description 10/08/2024 9:45 AM CDT Office Visit [facility] COMPENSATION INTERN - Medical [facility] [address] [facility] [address] [address] Terrie Manning MD [address] [facility] [address] [address] documented as of this encounter Visit Diagnoses Not on filedocumented in this encounter
--- OUTSIDE RECORDS SUMMARY | 2024-05-27 15:09 | XMS_ITS | Encounter Summary ---
Author Organization [facility] Address [address] [place] [address] Care Team Providers Care Gyroscope Repairer Name Role Phone Unavailable Primary Care Provider Unavailabl e Reason for Visit * Reason Onset Date Comments Medication Refill 06/15/2022 Encounter Details Date Type Department Care Team (Late Contact Info) Description 06/15/2022 Refill [facility] DRILLING CONTRACTOR [address] [address] Terrie Manning MD [address] [place] [phone] Social History Tobacco Use Types Packs/Day Years [...] Encounters Date Type Department Care Team (Late Contact Info) Description 10/08/2024 9:45 AM CDT Office Visit [facility] DRILLING CONTRACTOR - [address] [place] [address] Terrie Manning MD [address] [facility] [address] [address] documented as of this encounter Visit Diagnoses Not on filedocumented in this encounter
--- OUTSIDE RECORDS SUMMARY | 2024-05-27 15:09 | XMS_ITS | Encounter Summary ---
Author Organization [facility] Address [address] [place] [address] Care Team Providers Care Shipping Order Clerk Name Role Phone Unavailable Primary Care Provider Unavailabl e Encounter Details Date Type Department Care Team (Late st Contact Info) Description 05/17/2023 External Device Data ST[place] ABSTRACTION Provider, Abstract NO ADDRESS ON FILE Social History Tobacco Use Types Packs/Day Years [...] 10/08/2024 9:45 AM CDT Office Visit [facility] VOICE STUDIES DIRECTOR - Medical [facility] [address] [facility] [address] [place] [phone] Terrie Manning MD [address] [facility] [address] [place] [address] documented as of this encounter Visit Diagnoses Not on filedocumented in this encounter
--- OUTSIDE RECORDS SUMMARY | 2024-05-27 15:09 | XMS_ITS | Encounter Summary ---
[facility] Address [address] [place] [address] Care Team Providers Care Home Lending Officer Name Role Phone Unavailable Primary Care Provider Unavailabl e Reason for Visit * Auth/Cert Specialty Diagnoses / Procedures Referred By Tashaac t Referred To Contact Obstetrics Diagnoses EDC: 07/15/20 Repeat Classical Procedures SECTION [facility] Mother Baby [address]c [address] [place] [address] Referral ID Status Reason Start Date Expiration Date Visits Re quested Visits Authorized [id number] 1 1 Encounter Details Date Type Department Care Team (Late st Contact Info) Description 06/19/2020 7:30 AM LEGAL LIBRARIAN - 06/19/2020 9:00 AM LEGAL LIBRARIAN Surgery [facility] Labor & [address] [place] [address] Terrie Baca MD [address] [facility] [address] [place] [address] SECTION Surgery Details Date/Time Status Location OR Service Patient Class Case Class Case Type Trauma Case? 06/19/2020 7:30 AM Posted [facility] L&D C-S A Obstetrics Surgery Admit Elective No Panel 1 Procedure LRB Anes Op Region Wound Class Comments SECTION N/A Epidural Abdomen Clean Contaminated-II EDC: 07/15/20 * Repeat Classical Surgeon Surgeon Role Service Panel Terrie Baca MD Primary Obstetrics 1 documented in this encounter Social History Tobacco Use Types Packs/Day Years [...] have Coronavirus / COVID-19? No / Unsure 06/19/2020 5:36 AM LEGAL LIBRARIAN documented as of this encounter Last Filed Vital Signs Vital Sign Reading Time Taken Comments Blood Pressure 106/89 06/19/2020 9:00 AM LEGAL LIBRARIAN Pulse 93 06/19/2020 9:00 AM LEGAL LIBRARIAN Temperature 36.7 ??C (98 ??F) 06/19/2020 6:19 AM LEGAL LIBRARIAN Respiratory Rate 20 06/19/2020 9:00 AM LEGAL LIBRARIAN Oxygen Saturation 100% 06/19/2020 9:00 AM LEGAL LIBRARIAN Inhaled Oxygen Concentration - - Weight 87.1 kg (192 lb) 06/19/2020 6:19 AM LEGAL LIBRARIAN Height 177.8 cm (5' 10 ) 06/19/2020 6:19 AM LEGAL LIBRARIAN Body Mass Index 27.55 06/19/2020 6:19 AM LEGAL LIBRARIAN documented in this encounter Discharge Summaries * Terrie Baca MD - 06/21/2020 9:30 AM CST Physician Discharge Summary - Delivery Patient: Angela Alarcon / 34 y.o. / female : 1985 Admit date: 06/19/2020 Discharge date: 06/21/2020 Attending Physician0 : Terrie Baca MD Data: Information for the patient's : Ivana [id number] [[id number]] Information for the patient's : [id number] [[id number]] tab Discharge Diagnosis 1. non-labor Hospital Procedures 1. none. Pertinent History & Physical See H&P. Hospital Course Uncomplicated. Discharge Labs HEMOGLOBIN Date Value Ref Range Status 06/19/2020 10.2 (L) 11.8 - 14.8 g/dL Final PLATELETS Date Value Ref Range Status 06/19/2020 197 140 - 350 K/uL Final Discharge Condition:[id number] stable. Disposition She is discharged to home. See discharge instructions. Appropriate instructions were reviewed with the patient including no lifting >10 lbs & nothing per vagina x 6 wks. She'll followup in theoffice in 2 and 6 wks. Discharge Medications Medication List START taking these medications ibuprofen 600 mg tablet Commonly known as: MOTRIN Take 1 Tablet (600 mg) by mouth every 6 hours. Signed by: Terrie Baca MD Quantity: 60 Tablet Refills: 1 oxyCODONE 5 mg tablet Commonly known as: ROXICODONE Take 1 Tablet (5 mg) by mouth every 4 hours as needed for Pain. Max Daily Amount: 30 mg Signed by: Terrie Baca MD Quantity: 30 Tablet Refills: 0 CONTINUE taking these medications ferrous sulfate 220 mg (44 mg iron)/5 mL solution Commonly known as: IRON SULFATE Take 220 mg by mouth daily. Refills: 0 Folbee 2.5-25-1 mg Tablet Take 1 Tablet by mouth daily. Signed by: Terrie Baca MD Quantity: 30 Tablet Refills: 5 Generic drug: folic acid-vit B6-vit B12 -DHA ORAL Take by mouth. Refills: 0 sertraline 50 mg tablet Commonly known as: ZOLOFT Take 1 Tablet (50 mg) by mouth daily. Signed by: Terrie Baca MD Quantity: 90 Tablet Refills: 1 Where to Get Your Medications [address] [facility] [address] Hours: Monday-Monday: 8 a.m. - 8 p.m., Monday: 9 a.m. - 5 p.m., Monday: 10 a.m. - 4 p.m. ?? ibuprofen 600 mg tablet ?? oxyCODONE 5 mg tablet Terrie Baca MD L LIBRARIAN documented in this encounter Discharge Instructions * Discharge Instructions* Judie Hooker RN - 06/21/2020 9:33 AM LEGAL LIBRARIAN Images from the original note were not included. When should you call for help? Call 911 if you have: ??? Pain in chest ??? Obstructed breathing or shortness of breath ??? Seizures ??? Thoughts of hurting yourself or baby Call you healthcare provider if you have: ??? Bleeding, soaking through one pad per hour, or blood clots, the size of an egg or bigger ??? Incision that is not healing ??? Red or swollen leg, that is painful or warm to touch ??? Temperature of 100.4 or higher ??? Headache that does not get better, even after taking medicine, or bad headache with vision changes ??? Frequency or burning with urination ??? Swelling, redness, tenderness in breasts Tell 911 or your healthcare provider: I had a baby on [date ] and I am having [ specific warning signs ]. PRESCRIPTIONS Prescriptions given? Yes Please bring an up-to-date list of medications every time you visit a doctor. ACTIVITY/EXERCISE Recovery is a progressive process. It may take 6 to 8 weeks to return to pre- activity levels. Take time to rest each day. Limit visitors for the first few weeks. If you smoke you are advised to quit. Avoid second-hand smoke exposure and do not let people smoke in your home. Ask your health care provider for advice if you need assistance to stop smoking. BREAST CARE Wear a well fitting support bra, day and night. IF : ?? Wash breasts with warm water only during your daily shower ?? Do not wash breast before or after each feeding as this may cause dry, cracked nipples ?? For sore nipples, apply colostrum or breast milk to promote healing. Purified lanolin may also be applied to nipple and cover with breast pad. Lanolin does not need to be washed off prior to next feeding. ?? If breasts are engorged, regularly remove milk from the breasts every 1 1/2 - 3 hours (via or use of a hospital grade pump). For additional comfort, apply cold compresses for 10 - 15minutes as needed. ?? If using breast pads, change with each feeding ?? For advice call: information line [phone] IF BOTTLE FEEDING ?? Avoid breast stimulation, such as showers and pumping breasts. ?? If breasts are painful and engorged, apply ice packs for 15 - 20 minutes to the breasts or underthe arms. VAGINAL DISCHARGE Bleeding diminishes in amount each day. The color will change from red to pink to yellow-white. Thedischarge may last 2 - 5 weeks. It may increase and become bright red with activity but rest shouldrelieve this. Do not douche or use tampons. HEMORRHOIDS If they appear in or at the time of delivery, they will slowly disappear. Use of Tucks, or local medication will give relief. Avoid constipation. ABDOMINAL CRAMPS After- pains may be felt when . Talk with your doctor about pain medication. MENSTRUATION You may start to menstruate in 6 - 10 weeks if you are not or within 6 months if you are . The first two periods are often irregular and may be very heavy with clots. It may take a few months to establish a regular cycle and it may be somewhat different in length from before . SEXUAL INTERCOURSE You may resume intercourse after approximately six weeks or when the perineal area is not tender and vaginal bleeding has subsided. control measures should be used when you resume sexual intercourse. You may shower daily. After every shower, pat incision dry. If you have strips of tape on the incision, leave until they fall off on their own. For ease of movement, hold a pillow against the incision when you get up from a lying or sitting position. You may wear an abdominal binder for your comfort. KNOW ABOUT HELP FOR DEPRESSION ?Baby blues?? are common for the first 1 to 2 weeks after . You may cry or feel sad or irritable for no reason. ??? Rest whenever you can. Being tired makes it harder to handle your emotions. ??? Go for walks with your baby. ??? Talk to your partner, friends, and family about your feelings. ??? If your symptoms last for more than a few weeks, or if you feel very depressed, ask your doctorfor help. ??? depression can be treated. Support groups and counseling can help. Sometimes medicine can also help [facility] offers an Intensive Outpatient Program for women with mood disorder and depression. This supportive environment gives mothers a chance to talk with other mothers who face similar challenges. Families and partners will also learn new ways to support you. For more information, please contact our Intake Office at [phone]. After hours: [phone]. NEED SUPPORT AFTER YOU ARE HOME? [facility] now offers outpatient consult appointments. An International Board-Certified Naval Aircrewman is available to help if you need support after you and your arehome. Appointments are approximately one hour long and take place in the Department of Ser vices (second floor of [facility] near the NICU) Many insurance plans offer coverage for this service. Please call [phone], our Information line, to schedule your appointment or to get support by phone. Same or next day appointments are often available. Where can you learn more? Go to https://[email or web address].net/patiented Enter G069 in the search box to learn more about Your [place] at Home: Care Instructions. Enter Y708 in the search box to learn more about Learning About Rescue Breathing and CPR for Babies Under 1 Year. / Resources During Covid-19 Phone Consults & Visits Call [phone] to ask questions about . If needed, our team can schedule a video visit with you. Virtual with Confidence On Wednesdays, 1-2 pm., join us for a group meeting via videoconference facilitated by a professional. Ask questions, get advice! To register: Visit [employer]kandy and select [facility] / View Classes / Support Once you register, you will be sent the link to join the meeting. Phone Calls You may receive a phone call the day after you are home from one of our nurses. This call is intended provide a check-in to see how you are doing. We can also answer some basic questions for you. If needed, you may leave a message for the nurse at [phone]. Please note these messages are picked up as time allows and are not intended to replace advise from your physician.If you need is urgent, please contact your or your baby's physician. L LIBRARIAN documented in this encounter Medications at Time of Discharge Medication Sig Dispensed Refills Start Date End Date sertraline (ZOLOFT) 50 mg tablet Take 1 Tablet (50 mg) by mouth daily. 90 Tablet 1 04/13/2020 09/07/2020 documented as of this encounter Progress Notes * Judie Hooker RN - 06/21/2020 12:26 PM CST Angela Alarcon will be discharged via wheelchair to home. Angela Alarcon is accompanied by spouse and will be transported via private vehicle. L LIBRARIAN * Terrie Baca MD - 06/21/2020 9:27 AM CST Note Subjective: Day 2: Delivery The patient feels well. Pain is well controlled with current medications. The patient is ambulatingwell. The patient is tolerating a normal diet. Objective: Patient Vitals for the past 8 hrs: BP Temp Temp src Resp 06/21/20 0726 124/68 98.5 ??F (36.9 ??C) Oral 18 06/21/20 0353 118/76 97.5 ??F (36.4 ??C) -- -- General: alert, in no distress Uterine Fundus: normal size, well involuted, firm, non-tender Incision: healing well, no significant drainage, no dehiscence, no significant erythema DVT Evaluation: No evidence of DVT seen on physical exam. Assessment: Status post section. Doing well postoperatively. Plan: Continue current care. Pt wants to go home today. Terrie Baca MD L LIBRARIAN * Odalis Bender MD - 06/21/2020 7:37 AM CST OB Progress Note Subjective: Pain well controlled. Tolerating regular diet and ambulation. Voiding without complaints. Passing flatus. Minimal lochia. Denies chest pain, shortness of breath, fevers, chills, or calf pain. No complaints this morning. Objective: Vitals: 06/20/20 2031 06/21/20 0042 06/21/20 0353 06/21/20 0726 BP: 108/76 135/54 118/76 124/68 BP Location: Left arm Left arm Left arm Left arm Patient Position (BP): Sitting Sitting Sitting Sitting Pulse: 90 85 Resp: 18 18 Temp: 97.9 ??F (36.6 ??C) 97.6 ??F (36.4 ??C) 97.5 ??F (36.4 ??C) 98.5 ??F (36.9 ??C) TempSrc: Oral Oral SpO2: Weight: Height: HEENT: NC, AT Abd: Soft, firm fundus below umbilicus, incision clean/dry/intact Ext: No calf tenderness Active Problems: S/P section Assessment/Plan: POD# 2 s/p LTCS 1. Postop - Afebrile, VSS - Pain well controlled on PO medication - Increase ambulation. - Continue routine post-op care. 2. S/p POPS epidural: PO pain meds 3. Anxiety: Gary Bender MD Crew Boss PGY-1 Pager: [phone] L LIBRARIAN * Jae Lugo, - 06/20/2020 7:15 AM CST OB Progress Note Subjective: Pain well controlled. Tolerating diet. + flatus. Minimal lochia. Denies chest pain, shortness of breath, fevers, chills, or calf pain. No complaints. Objective: Vitals: 06/19/20 2300 06/20/20 0130 06/20/20 0310 06/20/20 0710 BP: 111/61 124/79 115/78 BP Location: Left arm Patient Position (BP): Sitting Pulse: Resp: 18 18 18 18 Temp: 98.2 ??F (36.8 ??C) 97.9 ??F (36.6 ??C) 97.5 ??F (36.4 ??C) TempSrc: Oral Oral Oral SpO2: Weight: Height: HEENT: NC, AT Heart : RRR Lungs: CTAB Abd: Soft, firm fundus below umbilicus, bandage clean/dry/intact Ext: No calf tenderness Intake/Output Summary (Last 24 hours) at 06/20/2020 0715 Last data filed at 06/20/2020 0310 Gross per 24 hour Intake 4290.89 ml Output 4225 ml Net 65.89 ml UOP in last 8 hours: 1500 cc Active Problems: S/P section Assessment/Plan: POD# 1 s/p LTCS 1. Postop - Afebrile, VSS - UOP adequate: saline lock IV, discontinue Abad - Ambulate - Tolerating regular diet - Continue routine post-op care 2. Anxiety: Zoloft Octaviano Way DO PGY1 Dept. of Crew Boss Pager: [phone] Seen and examined. Agree with plan. Dr. Lugo L LIBRARIAN * Terrie Baca MD - 06/19/2020 7:31 AM CST The patient is a at 36w2d with a history of a prior c/s with T incision here for a repeat c/s. Here has been complicated by anxiety treated with Zoloft and also a prior history of a Trisomy 18 delivered at 36 wks. Her NIPT is normal this . R/o bleeding, infection and damage to surrounding structures d/w pt. Questions answered. Prophylactic antibiotics will be given. NICU will be present at delivery. Terrie Baca MD L LIBRARIAN * Maira Franz RN - 06/18/2020 11:28 AM CST Pre-Operative Patient Education: Today's Date: 06/18/2020 Patient: Angela Alarcon is a 34 y.o. female : 1985 Confirms understanding of the following patient education: [x] Date and time of scheduled procedure 06/19/20 @ 0730 [x] Personal belongings policy-leave all jewelry at home [x] Arrival time and location 0530 MW [x] Oral intake instructions per OB Anesthesia No solid food after 0030, NPO after 0430 [x] Consult with Dr. Baca about taking home medications prior to surgery [x] Showering instructions with antibacterial soap, and abdomen scrub x 3 minutes reviewed with patient NKA No Latex Allergy Current visitation policy reviewed Covid 19 screening completed Currently on Zoloft Opportunity provided for questions. Tablet Technician required: N/A Maira Franz RN L LIBRARIAN documented in this encounter H&P Notes * Betzy Lema MD - 06/19/2020 6:59 AM CST OB History & Physical HPI: Angela Alarcon is a 34 y.o. @ 36w2d who presents for repeat C- section. Her pregnancyhas been complicated by history of prior with T incision, prior with T18 (NIPT wnl this ), and anxiety for which she takes Zoloft. Patient reports good movement, denies contractions, vaginal bleeding, or leakage of fluid. Nocomplaints. Her primary OB is Terrie Baca MD. ROS: As above. Denies nausea, vomiting, chest pain, shortness of breath, headache, or vision symptoms. 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 Abdominal pain ??? Anxiety no meds during ??? 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 Diarrhea 06/03/13 ??? GERD (gastroesophageal reflux disease) ??? Hx of abnormal cervical Pap smear ??? IBS (irritable bowel syndrome) ??? Nutritional anemia, unspecified ??? Unsp cond assoc w female genital organs and menstrual cycle IVF PSHx: Past Surgical History: Procedure Laterality Date ??? HX AMNIOCENTESIS 12/2018 ??? HX DILATION AND CURETTAGE ??? HX LEEP PROCEDURE 2015 ??? HX WISDOM TEETH EXTRACTION ??? [place] DELIVERY ONLY N/A 08/21/2017 SECTION performed by Terrie Baca MD at [facility] ??? [place] DELIVERY ONLY N/A 04/01/2019 SECTION performed by Terrie Baca MD at [facility] ??? [place] COLONOSCOPY FLX DX W/COLLJ SPEC WHEN PFRMD 06/06/2013 COLONOSCOPY performed by Xavi Aquino MD at [facility] ??? [place] ESOPHAGOGASTRODUODENOSCOPY TRANSORAL DIAGNOSTIC 06/06/2013 ESOPHAGOGASTRODUODENOSCOPY performed by Xavi Aquino MD at [facility] ??? [place] HYSTEROSCOPY,W/ENDO BX N/A 08/11/2016 HYSTEROSCOPY WITH DILATATION AND CURETTAGE SUCTION performed by Dustin Bill MD at [facility] ??? [place] ORAL SURGERY FHx: Negative for genetic tendencies, frequent miscarriage or bleeding disorders SHx: denies tobacco, alcohol, or illicit drug use Medications: - PNV - Iron - Zoloft No Known Allergies Physical Exam: BP 125/80 (BP Location: Right arm, Patient Position (BP): Sitting) Pulse 93 Temp 98 ??F (36.7 ??C) (Oral) Ht 5' 10 (1.778 m) Wt 87.1 kg (192 lb) LMP 10/09/2019 No BMI 27.55 kg/m?? General: well-developed, well-nourished female in NAD HEENT: NCAT, moist mucus membranes Heart: acyanotic Lungs: unlabored respirations Abdomen: gravid, NT Extremities: no edema or calf tenderness FHR: 150, mod variability, +accels, no decels [place]: quiet Assessment/Plan: 34 y.o. @ 36w2d admitted for repeat 1. Indication for : prior with T-incision 2. status reassuring: NST reactive 3. labs: O+, Rub imm / HIV neg / RPR NR / HepB neg - Will need cord blood for delivery 4. The risks, benefits, indications, and alternatives of were reviewed with the patient. Informed consent was obtained. All questions were answered. Will proceed with as planned. 5. SCDs and pre-op antibiotics for prophylaxis 6. 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 Nigel Jones MD SOFTWARE ENGINEER [employer]PLICATION[employer] PGY-3 Pager: L LIBRARIAN documented in this encounter OR Notes * Anesthesiology - Georgie Hebert CRNA - 06/20/2020 3:33 AM CST Discussed post-op pain management plan with attending anesthesiologist. Epidural pulled in accordance with prescribed plan. Epidural pulled due to dressing failure (clamp disconnected). Tip was intact. Site is clean dry and without erythema. Georgie Hebert CRNA 06/20/2020 3:33 AM L LIBRARIAN * Anesthesiology Georgie Yusuf CRNA - 06/20/2020 3:33 AM CST OB Anesthesia Post-Operative Assesment 06/20/2020 6:08 AM Angela Alarcon, status post regional anesthesia for section. Patient evaluated via phone call into room due to new protocols for Covid-19 Pandemic: Respiratory Function Resp: 18 (06/20/20309) SpO2: 99 % (06/19/20 1014) Able to breathe and cough freely Able to maintain O2 saturation greater than 92% on room air Cardiovascular Function Heart Rate: 84 bpm (06/20/20309) BP: 124/79 (06/20/20309) BP within 20% of preanesthetic level Mental Status, Neuro Fully awake Able to move 4 extremities voluntarily. No focal sensory deficits or weakness. Temperature Temp: 36.6 ??C (06/20/20309) Pain Pain Rating: Rest: 3 (06/20/20 0404) Presence of Pain: complains of pain/discomfort (06/20/20 0404) Postoperative Hydration Intake/Output Summary (Last 24 hours) at 06/20/2020 0608 Last data filed at 06/20/2020 0310 Gross per 24 hour Intake 4290.89 ml Output 4225 ml Net 65.89 ml Nausea and Vomiting Able to drink fluids, no nausea, no vomiting Narrative No apparent Anesthesia related complications Goergie Hebert CRNA 06/20/2020 6:08 AM L LIBRARIAN * Operative Report - Terrie Baca MD - 06/19/2020 8:34 AM CST Section Operative Note Date of Procedure: 06/19/2020 Procedure: repeat low transverse section via Pfannenstiel incision Pre-operative Diagnosis: 1. 34 y.o. with IUP @ 36w2d 2. History of T incision Post-operative Diagnosis: same Surgeon: Terrie Baca MD Single Needle Operator: Frederick Jovel DO Anesthesia: spinal QBL: 660 mL Urine Output: clear urine in Abad bag after procedure Specimen(s): cord blood for ABO typing Antibiotics: 2g Ancef Operative Complications: none Indications: Please see pre-op diagnosis above, H&P and most recent progress notes for further details. Findings: Gestational Age: 36w2d Date of Delivery: 06/19/2020 Time of Delivery: 7:59 AM Sex: Female Delivery Type: , Low Transverse Delayed Cord Clamping: Yes (Refer to Delivery Summary) Weight: 3125 g (6 lb 14.2 oz) 1 Minute: 8 5 Minutes: 9 Team present at delivery? yes Nuchal cord: 1 Placenta: spontaneous removal; complete, 3 vessel cord Maternal anatomy: uterus with thin appearing lower uterine segment, tubes and ovaries appeared normal Procedure Details After informed consent, placement of Abad, SCDs, and appropriate anesthesia as listed above, the patient was prepped and draped in the usual fashion. A Pfannenstiel skin incision was made with the scalpel and carried down through the subcutaneous tissue to the fascia sharply. The fascia was then incised in the midline, and this incision was extended laterally. The fascia was from the underlying rectus tissue superiorly and inferiorly with moderate amount of scar tissue noted. The peritoneum was identified and entered. Peritoneal incision was extended with good visualization of bowel & bladder. A low transverse uterine incision was made with the scalpel. This incision was exten ded superiorly and inferiorly digitally. Infant was delivered as noted in the findings above. The umbilical cord was doubly clamped and cut & the infant was handed to the nurse. The placenta was removed as noted above. The uterus was exteriorized & cleared of clot & debris. The uterine incision was approximated with 0 biosyn in a running, locking stitch in a single layer. The posterior cul de sac was manually cleared of clot and blood. Hemostasis was observed. The uterus was returned to anatomic position. The pericolic gutters were manually cleared of clot and blood. The uterine incision was re-inspected & noted to be hemostatic. The peritoneum was closed with 2-0 polysorb in a running stitch. The rectus muscles were approximated with 0 Biosyn, interrupted, horizontal mattr ess sutures. The subfascial tissues were noted to be hemostatic. The fascia was then closed with 0 polysorb in a running stitch. The subcutaneous tissue was irrigated & made hemostatic with the Bovie. The subcutaneous tissue was approximated with 0 plain gut suture in a running stitch. The skinwas closed with 4-0 biosyn, followed by a sterile dressing. Instrument, sponge, and needle counts were correct times three per nursing. Antibiotics were given prior to incision. The patient tolerated the procedure well and was taken to recovery in stable condition. Frederick Jovel, L LIBRARIAN documented in this encounter Miscellaneous Notes * Care Plan - Odalis Araiza RN - 06/21/2020 5:15 AM CST VSS. Fundus firm, Lochia WNL. Incision C/D/I. Independent in ADLs. Voiding without difficulty. Painwell controlled with PO Motrin, Tylenol, and Shauna. Breast feeding well. L LIBRARIAN * Care Plan - Betzy Tom RN - 06/20/2020 5:23 PM CST Pain is controlled with PO pain medications. Patient is ambulating independently and voiding without difficulty. VSS. successfully. Applying ice to incision. Progressing towards discharge goals. L LIBRARIAN * Care Plan - Judie Hooker RN - 06/20/2020 2:20 PM CST Pt's fundus remains firm and bleeding is light. Pain is well controlled with PO motrin, tylenol, and shauna. VSS. Progressing towards discharge. L LIBRARIAN * Care Plan - Hayley Vela RN - 06/20/2020 6:27 AM CST VSS. Pt up and voiding without difficulty. Epidural dc'd after becoming disconnected. Pt's pain well controlled with po pain meds. Resting comfortably throughout the night. L LIBRARIAN * Treatment Plan - Lillian No RN - 06/19/2020 5:39 AM CST Images from the original note were not included. Pre-operative Protocol [facility] ORDERS ARE ENTERED ???PER PROTOCOL?? Follow this protocol for all section patients (scheduled and unscheduled). Enter the protocol in the patient???s electronic health record using [employer]: .cesareanbirthprotocol Nursing Orders: o Initiate the Pathway o Notify physician upon admission o In-patient anesthesia consult o Full Code o Vital signs per unit policy o Electronic monitor o Insert peripheral IV o Lactated Ringer???s solution at 125mLs/hr o Insert abad catheter to bedside drainage o Position patient according to maternal and tolerance o Verify informed consent o Diet: strict NPO o Education on smoking cessation and second hand smoke avoidance o Prep surgical site o Confirm heart rate immediately prior to abdominal prep o Place pneumatic compression devices (If calf circumference exceeds 26 inches, contact physician for alternative therapy. Laboratory Orders: o Type and screen (antibody will be reflexively ordered on positive antibody screens) o CBC with differential (Manual differential will be performed if appropriate) Medication Orders o Lactated Ringer???s solution at 125 mLs/hr IV o IV flush panel: ? Sodium chloride 0.9% (normal saline) flush 5mLs IV every 12 hours when locked ? Sodium chloride 0.9% (normal saline) flush 5mLs IV before and after medications or to verify linepatency For Post hemorrhage (Physician consultation required before administration for appropriate medication selection): ? Oxytocin in sodium chloride (PITOCIN) 20 unit/1,000 ml infusion IV at 999mL/hr for excessive bleeding in the period ? Methylergonovine maleate (METHERGINE) 0.2 mg/ml (1ml) injection IM as needed for excessive bleeding in the immediate period after consultation with resident or attending physician. Maximum of 2 doses every 15 minutes PRN. ? Carboprost tromethamine (HEMABATE) 250 mcg/ml injection 1 ml IM as needed for excessive bleeding in the immediate period after consultation with resident or attending physician. Maximum of 8 doses. ? MISOPROSTOL (CYTOTEC) tablet 800 mcg per rectum ONE TIME, PRN for excessive bleeding in the period after consultation with resident or attending physician. Initiating Department(s): Date: 09/12/16 Department(s): Labor and Reviewed: 12/2017 Revised: 12/2017 Approved by: Medical Executive Committee, Nursing Leadership, Pharmacy & Therapeutics Date: 01/2018 Adult Influenza and/or Pneumococcal Vaccine Protocol [facility] ORDERS ARE ENTERED ???PER PROTOCOL?? Enter the protocol in the patient???s electronic health record using [employer]: .flupneumoniavaccineprotocol Nursing Orders: ??? Screening is performed on patients utilizing the best practice alert (BPA) in the electronic health record (EHR). ??? Nurse will review BPA with patient and document accordingly ??? Give a copy of the appropriate Vaccination Information Sheet (VIS) form to the patient. A vaccine information statement (VIS) can be printed from the link within the eMAR. ??? Order adult vaccine (as indicated below) in the EHR. ??? Document the attending physician as the ordering/authorizing provider. Medication Orders: o Influenza: 1. Adults 18 years through 64 years old: flu vaccine 60 mcg/0.5mL given IM one time only. OR 2. Adults 65 years old and greater: high dose flu vaccine 180mcg/0.5mL given IM one time only. o Pneumococcal: BPA will direct the correct vaccine regimen, any questions contact credentialed provider or pharmacist 1. Pneumovax 25 mcg/0.5mL IM one time OR 2. 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 [facility] [address] [place] [address] documented as of this encounter Procedures Procedure Name Priority Date/Time Associated Diagnosis Comments SECTION 06/19/2020 7:30 AM LEGAL LIBRARIAN EDC: 07/15/20 * Repeat Classical CBC WITH DIFFERENTIAL Routine 06/19/2020 6:03 AM LEGAL LIBRARIAN TYPE AND SCREEN Routine 06/19/2020 6:03 AM LEGAL LIBRARIAN documented in this encounter Results * (ABNORMAL) CBC WITH DIFFERENTIAL (06/19/2020 6:03 AM LEGAL LIBRARIAN) [facility] WBC 5.8 4.0 - 9.8 K/uL 06/19/2020 6:43 AM LEGAL LIBRARIAN [facility] RBC 3.31(L) 3.90 - 4.90 M/uL 06/19/2020 6:43 AM LEGAL LIBRARIAN [facility] HEMOGLOBIN 10.2(L) 11.8 - 14.8 g/dL 06/19/2020 6:43 AM LEGAL LIBRARIAN [facility] HEMATOCRIT 32.4(L) 35.5 - 44.0 % 06/19/2020 6:43 AM LEGAL LIBRARIAN [facility] MCV 97.9 82.0 - 99.0 fL 06/19/2020 6:43 AM LEGAL LIBRARIAN [facility] MCH 30.8 27.2 - 32.6 pg 06/19/2020 6:43 AM LEGAL LIBRARIAN [facility] MCHC 31.5 31.5 - 35.5 g/dL 06/19/2020 6:43 AM LEGAL LIBRARIAN [facility] RDW 13.5 11.5 - 14.5 % 06/19/2020 6:43 AM LEGAL LIBRARIAN [facility] RDW-STDEV 48.7 37.1 - 48.7 fL 06/19/2020 6:43 AM LEGAL LIBRARIAN [facility] PLATELETS 197 140 - 350 K/uL 06/19/2020 6:43 AM LEGAL LIBRARIAN [facility] MPV 9.6 9.3 - 12.4 fL 06/19/2020 6:43 AM LEGAL LIBRARIAN [facility] NEUTROPHILS 65 % 06/19/2020 6:43 AM LEGAL LIBRARIAN [facility] LYMPHOCYTES 23 % 06/19/2020 6:43 AM LEGAL LIBRARIAN [facility] MONOCYTES 10 % 06/19/2020 6:43 AM LEGAL LIBRARIAN [facility] EOSINOPHILS 1 % 06/19/2020 6:43 AM [facility] BASOPHILS 0 % 06/19/2020 6:43 AM [facility] IMMATURE GRANULOCYTES 1 % 06/19/2020 6:43 AM [facility] Comment:IG (Immature Granulo cyte) count includes Metamyelocytes, Myelocytes, and Promyelocytes NEUTROPHIL ABSOLUTE 3.79 1.90 - 7.00 K/uL 06/19/2020 6:43 AM [facility] LYMPHOCYTE ABSOLUTE 1.36 0.70 - 4.50 K/uL 06/19/2020 6:43 AM [facility] [employer] [facility] MONOCYTE ABSOLUTE 0.57 0.10 - 1.30 K/uL 06/19/2020 6:43 AM [facility] [employer] [facility] EOSINOPHIL ABSOLUTE 0.04 0.00 - 0.70 K/uL 06/19/2020 6:43 AM [facility] [employer] [facility] BASOPHILS ABSOLUTE 0.01 0.00 - 0.20 K/uL 06/19/2020 6:43 AM [facility] [employer] [facility] IMMATURE GRANULOCYTES ABSOLUTE 0.03 0.00 - 0.03 K/uL 06/19/2020 6:43 AM [facility] [employer] [facility] Blood Venipuncture / Unknown 06/19/2020 6:03 AM LEGAL LIBRARIAN 06/19/2020 6:21 AM LEGAL LIBRARIAN Terrie Baca MD [id number] [address] [facility] [place] [address] * TYPE AND SCREEN (06/19/2020 6:03 AM LEGAL LIBRARIAN) ABO GROUP O 06/19/2020 7:58 AM [facility] [employer] SERVICES -- [facility] RH (D) TYPE Positive 06/19/2020 7:58 AM [facility] [employer] SERVICES -- [facility] ANTIBODY SCREEN Negative 06/19/2020 7:58 AM LEGAL LIBRARIAN [facility] -- Blood Venipuncture / Unknown 06/19/2020 6:03 AM LEGAL LIBRARIAN 06/19/2020 6:21 AM LEGAL LIBRARIAN Terrie Baca MD BLOOD BANK ORDERAB LES [facility] IA# [id number] [address] [facility] [place] [id number] documented in this encounter Visit Diagnoses Not on filedocumented in this encounter Administered Medications Inactive Administered Medications - up to 3 most recent administrations Medication Order MAR Action Action Date Dose Rate Site acetaminophen (TYLENOL) tablet 650 mg 650 mg, Oral, EVERY 6 HOURS, First dose on Mon06/19/20 at 1500, Until Discontinued, Routine, Post-op - Floor Given 06/21/2020 12:23 PM LEGAL LIBRARIAN 650 mg Given 06/21/2020 6:33 AM LEGAL LIBRARIAN 650 mg Given 06/21/2020 12:42 AM LEGAL LIBRARIAN 650 mg carboprost tromethamine (HEMABATE) 250 mcg/mL injection 1 mL 1 mL (250 mcg), IM, EVERY 15 MINUTES PRN, 8 doses, Starting on Mon06/19/20 at 0536, Until Mon06/21/20 at 1443, Other (See Comment), for excessive bleeding in the immediate period as needed after consultation with resident or attending physician - Maximum of 8 doses, Routine docusate sodium (COLACE) capsule 100 mg 100 mg, Oral, TWO TIMES DAILY, First dose on Mon06/19/20 at 1200, Until Discontinued, Routine, Post-op - Floor Given 06/21/2020 8:44 AM LEGAL LIBRARIAN 100 mg Given 06/20/2020 8:30 PM LEGAL LIBRARIAN 100 mg Given 06/20/2020 8:17 AM LEGAL LIBRARIAN 100 mg ferrous sulfate tablet 325 mg 325 mg, Oral, DAILY, First dose on Mon06/19/20 at 1200, Until Discontinued, Routine, Post-op - Floor Given 06/21/2020 8:44 AM LEGAL LIBRARIAN 325 mg Given 06/20/2020 8:18 AM LEGAL LIBRARIAN 325 mg ibuprofen (MOTRIN) tablet 600 mg 600 mg, Oral, EVERY 6 HOURS, First dose on Mon06/19/20 at 1500, Until Discontinued, Routine, Post-op - Floor Given 06/21/2020 6:33 AM LEGAL LIBRARIAN 600 mg Given 06/21/2020 12:42 AM LEGAL LIBRARIAN 600 mg Given 06/20/2020 6:36 PM LEGAL LIBRARIAN 600 mg lactated ringers infusion IV, at 125 mL/hr, CONTINUOUS, Starting on Mon06/19/20 at 2000, Until 06/21/20 at 1443, Routine, Post-op - Floor New Bag 06/19/2020 7:16 PM LEGAL LIBRARIAN 125 mL/hr methylergonovine maleate (METHERGINE) 0.2 mg/mL (1 mL) injection 0.2 mg 0.2 mg, IM, EVERY 2 HOURS PRN, 2 doses, Starting on Mon06/19/20 at 0536, Until 06/21/20 at 1443, Other (See Comment), for excessive bleeding in the immediate period as needed after consultation with resident or attending physician - Maximum of 2 doses, Routine miSOPROStoL (CYTOTEC) tablet 800 mcg 800 mcg, Rectal, ONE TIME PRN, 1 dose, Starting on Mon06/19/20 at 0536, Until 06/21/20 at 1443, Other (See Comment), Physician consultation required before administration for appropriate medication selection, Routine oxyCODONE (ROXICODONE) tablet 5 mg 5 mg, Oral, EVERY 4 HOURS PRN, Starting on 06/20/20 at 0347, Until 06/21/20 at 1443, Pain (See admin instructions), Routine Given 06/21/2020 12:23 PM LEGAL LIBRARIAN 5 mg Given 06/21/2020 8:44 AM LEGAL LIBRARIAN 5 mg Given 06/21/2020 4:47 AM LEGAL LIBRARIAN 5 mg oxyCODONE (ROXICODONE) tablet 5 mg 5 mg, Oral, EVERY 4 HOURS PRN, Starting on 06/20/20 at 0348, Until 06/21/20 at 1443, Pain (See admin instructions), Routine oxytocin in sodium chloride 0.9 % (PITOCIN) 20 units in 1,000 mL infusion IV, at 999 mL/hr, CONTINUOUS PRN, Starting on Mon06/19/20 at 0536, Until 06/21/20 at 1443, Other (See Comment), excessive bleeding in the immediate period, Routine vit-iron fumarate-fa (WILLIAM ) 28 mg iron- 800 mcg per tablet 1 Tablet 1 Tablet, Oral, DAILY AT BEDTIME, First dose (after last modification) on Mon06/20/20 at 2100, Until Discontinued, Routine, Post-op - Floor Given 06/20/2020 8:30 PM LEGAL LIBRARIAN 1 Tablet sennosides-docusate sodium (SENNA-S) 8.6-50 mg per tablet 1 Tablet 1 Tablet, Oral, DAILY AT BEDTIME, First dose on Mon06/19/20 at 2100, Until Discontinued, Routine, Post-op - Floor Given 06/20/2020 8:31 PM LEGAL LIBRARIAN 1 Tab let Given 06/19/2020 9:16 PM LEGAL LIBRARIAN 1 Tablet sertraline (ZOLOFT) tablet 50 mg 50 mg, Oral, DAILY, First dose on Mon06/19/20 at 2145, Until Discontinued, Routine Given 06/20/2020 9:05 PM LEGAL LIBRARIAN 50 mg Given 06/19/2020 10:13 PM LEGAL LIBRARIAN 50 mg simethicone chewable tablet 80 mg 80 mg, Oral, EVERY 6 HOURS PRN, Starting on Mon06/19/20 at 1119, Until 06/21/20 at 1443, Gas, Routine, Post-op - Floor Given 06/20/2020 1:37 AM LEGAL LIBRARIAN 80 mg Given 06/19/2020 6:05 PM LEGAL LIBRARIAN 80 mg tranexamic acid (CYKLOKAPRON) 1,000 mg in sodium chloride (iso-osmotic) 100 mL IVPB 1,000 mg, IV, ONE TIME PRN, 1 dose, Starting on Mon06/19/20 at 0536, Until 06/21/20 at 1443, Other (See Comment), Physician consultation required before administration for appropriate medication selection, Routine documented in this encounter Active and Recently Administered Medications Times are shown in LEGAL LIBRARIAN. Scheduled Medication Order 06/19/2020 06/20/2020 06/21/2020 acetaminophen (TYLENOL) tablet 650 mg 650 mg, Oral, EVERY 6 HOURS, First dose on Mon06/19/20 at 1500, Until Discontinued, Routine, Post-op - Floor 1806 (Given - Provider: Diamond Willis RN) 0137 (Given - Provider: Hayley Vela RN)0703 (Given - Provider: Hayley Vela RN)1250 (Given - Provider: Judie Hooker, ATTILA)1837 (Given - Provider: Betzy Tom, ATTILA) 0042 (Given - Provider: Odalis Araiza, ATTILA)0633 (Given - Provider: Odalis Araiza, ATTILA)1223 (Given - Provider: Judie Hooker, ATTILA) ceFAZolin (ANCEF) 2,000 mg in dextrose (iso-osmotic) 100 mL IVPB (PREMIX) (COMPLETED) 2,000 mg, IV, ONE TIME ONLY, 1 dose, On Mon06/19/20 at 0630, Routine, Antibiotic Indication: Surgical prophylaxis 0720 (New Bag - Provider: Terrie Rey, RN)0750 (Stopped - Provider: Terrie Rey RN) docusate sodium (COLACE) capsule 100 mg 100 mg, Oral, TWO TIMES DAILY, First dose on Mon06/19/20 at 1200, Until Discontinued, Routine, Post-op - Floor 1200 (Not Given - Provider: Diamond Willis RN - Reason: Patient condition)2116 (Given - Provider: Hayley Vela RN) 0817 (Given - Provider: Judie Hooker RN)2030 (Given - Provider: Odalis Araiza, ATTILA) 0844 (Given - Provider: Judie Hooker RN) fentaNYL PF (SUBLIMAZE) 15 mcg/0.3 mL syringe 15 mcg (COMPLETED) 15 mcg, See Admin Instructions, INTRA-PROCEDURE ONCE, 1 dose, Starting on Mon06/19/20 at 0707, Until Mon06/19/20 at 0738, Routine 0738 (Given - Provider: Georgie Hebert CRNA) ferrous sulfate tablet 325 mg 325 mg, Oral, DAILY, First dose on Mon06/19/20 at 1200, Until Discontinued, Routine, Post-op - Floor 1200 (Not Given - Provider: Diamond Willis RN - Reason: Patient condition) 0818 (Given - Provider: Judie Hooker RN) 0844 (Given - Provider: Judie Hooker RN) ibuprofen (MOTRIN) tablet 600 mg 600 mg, Oral, EVERY 6 HOURS, First dose on Mon06/19/20 at 1500, Until Discontinued, Routine, Post-op - Floor 1805 (Given - Provider: Diamond Willis RN) 0137 (Given - Provider: Hayley Vela, ATTILA)0703 (Given - Provider: Hayley Vela RN)1250 (Given - Provider: Judie Hooker, ATTILA)1836 (Given - Provider: Betzy Tom, ATTILA) 0042 (Given - Provider: Odalis Araiza, ATTILA)0633 (Given - Provider: Odalis Araiza, ATTILA)1200 (Due) ketorolac (TORADOL) injection 30 mg (COMPLETED) 30 mg, IV, ONE TIME ONLY, 1 dose, On Mon06/19/20 at 0715, Routine, (OB POST-OP PAIN SERVICE) 0823 (Given - Provider: Georgie Hebert CRNA) lanolin (LANSINOH) 100 % topical ointment Topical, SEE ADMIN INSTRUCTIONS, Starting on Mon06/19/20 at 1119, Until 06/21/20 at 1443, Routine, Post-op - Floor naloxone (NARCAN) 0.4 mg/mL injection 0.1 mg 0.1 mg, IV, SEE ADMIN INSTRUCTIONS, Starting on Mon06/19/20 at 1119, Until 06/21/20 at 1443, Routine, Post-op - Floor vit-iron fumarate-fa (WILLIAM ) 28 mg iron- 800 mcg per tablet 1 Tablet 1 Tablet, Oral, DAILY AT BEDTIME, First dose (after last modification) on 06/20/20 at 2100, Until Discontinued, Routine, Post-op - Floor 2030 (Given - Provider: Odalis Araiza, ATTILA) sennosides-docusate sodium (SENNA-S) 8.6-50 mg per tablet 1 Tablet 1 Tablet, Oral, DAILY AT BEDTIME, First dose on 06/19/20 at 2100, Until Discontinued, Routine, Post-op - Floor 2115 (Given - Provider: Hayley Vela RN) 2030 (Given - Provider: Odalis Araiza, ATTILA) sertraline (ZOLOFT) tablet 50 mg 50 mg, Oral, DAILY, First dose on Mon06/19/20 at 2145, Until Discontinued, Routine 2212 (Given - Provider: Hayley Vela RN) 2104 (Given - Provider: Odalis Araiza RN) Continuous Medication Order 06/19/2020 06/20/2020 06/21/2020 lactated ringers infusion (CANCELED) IV, at 125 mL/hr, PRE-PROCEDURE CONTINUOUS, Starting on Mon06/19/20 at 0545, Until Mon06/19/20 at 1100, Routine, Pre-op 0626 (New Bag - Provider: Terrie Rey RN)0654 (Continue from Pre-Op - Provider: Georgie Hebert CRNA)0800 (Stopped - Provider: Georgie Hebert CRNA) lactated ringers infusion IV, at 125 mL/hr, CONTINUOUS, Starting on Mon06/19/20 at 2000, Until Mon06/21/20 at 1443, Routine, Post-op - Floor 1916 (New Bag - Provider: Diamond Willis RN)2300 (Stopped - Provider: Hayley Vela RN) meperidine 5 mg/ml epidural (CANCELED) 2 mL/hr, Epidural, CONTINUOUS, Starting on Mon06/19/20 at 0900, Until 06/20/20 at 0335, Stat 0954 (New Bag - Provider: Georgie Hebert CRNA) 0306 (Stopped - Provider: Hayley Vela RN) 0954 (Due: Stopped - Provider: Georgie Hebert CRNA) oxytocin in sodium chloride 0.9 % (PITOCIN) 20 units in 1,000 mL infusion IV, at 125 mL/hr, CONTINUOUS, Starting on Mon06/19/20 at 1130, Until Mon06/19/20 at 1929, Routine, Post-op - Floor 1122 (New Bag - Provider: Diamond Willis RN)1133 (New Bag - Provider: Diamond Willis RN)1135 (Rate Verify - Provider: Diamond Willis RN)1911 (Stopped - Provider: Hayley Vela RN)1914 (Rate Verify - Provider: Diamond Willis RN) phenylephrine (RAMANA-SYNEPHRINE) 25 mg/250 mL 0.9% sodium chloride infusion (INTRA-OP USE ONLY) (CANCELED) 0.5 mcg/kg/min ? 87.1 kg (26.13 mL/hr, rounded to 26.1 mL/hr), IV, INTRA-PROCEDURE CONTINUOUS, Starting on Mon06/19/20 at 0715, Until Mon06/19/20 at 1114 0738 (New Bag - Provider: Georgie Hebert CRNA)0808 (Rate Change - Provider: Georgie Hebert CRNA)0816 (Stopped - Provider: Georgie Hebert CRNA) PRN Medication Order 06/19/2020 06/20/2020 06/21/2020 calcium as carbonate (TUMS) 500 mg (200 mg elemental) chewable tablet 200 mg 200 mg, Oral, EVERY 6 HOURS PRN, Starting on Mon06/19/20 at 1119, Until Mon06/21/20 at 1443, Dyspepsia, Routine, Post-op - Floor carboprost tromethamine (HEMABATE) 250 mcg/mL injection 1 mL 1 mL (250 mcg), IM, EVERY 15 MINUTES PRN, 8 doses, Starting on Mon06/19/20 at 0536, Until Mon06/21/20 at 1443, Other (See Comment), for excessive bleeding in the immediate period as needed after consultation with resident or attending physician - Maximum of 8 doses, Routine hydrocortisone (PROCTOZONE-HC) 2.5 % rectal cream Rectal, TWO TIMES DAILY PRN, Starting on Mon06/19/20 at 1119, Until Mon06/21/20 at 1443, Hemorrhoids, Routine, Post-op - Floor magnesium hydroxide (MILK OF MAGNESIA) oral suspension 30 mL 30 mL, Oral, NIGHTLY PRN, Starting on Mon06/19/20 at 1119, Until Mon06/21/20 at 1443, Constipation, Routine, Post-op - Floor methylergonovine maleate (METHERGINE) 0.2 mg/mL (1 mL) injection 0.2 mg 0.2 mg, IM, EVERY 2 HOURS PRN, 2 doses, Starting on Mon06/19/20 at 0536, Until Mon06/21/20 at 1443, Other (See Comment), for excessive bleeding in the immediate period as needed after consultation with resident or attending physician - Maximum of 2 doses, Routine metoclopramide (REGLAN) 5 mg/mL injection 10 mg 10 mg, IV, EVERY 6 HOURS PRN, Starting on Mon06/19/20 at 1119, Until 06/21/20 at 1443, Nausea/Emesis, Routine, Post-op - Floor miSOPROStoL (CYTOTEC) tablet 800 mcg 800 mcg, Rectal, ONE TIME PRN, 1 dose, Starting on Mon06/19/20 at 0536, Until 06/21/20 at 1443, Other (See Comment), Physician consultation required before administration for appropriate medication selection, Routine nalbuphine (NUBAIN) injection 2.6 mg 2.6 mg (rounded from 2.5 mg), IV, EVERY 3 HOURS PRN, 8 doses, Starting on Mon06/19/20 at 1119, Until 06/21/20 at 1443, Itching, Routine, Post-op - Floor ondansetron (ZOFRAN) 4 mg/2 mL injection 4 mg 4 mg, IV, EVERY 6 HOURS PRN, Starting on Mon06/19/20 at 1119, Until 06/21/20 at 1443, Nausea/Emesis, Routine, Post-op - Floor oxyCODONE (ROXICODONE) tablet 5 mg 5 mg, Oral, EVERY 4 HOURS PRN, Starting on 06/20/20 at 0347, Until 06/21/20 at 1443, Pain (See admin instructions), Routine 0404 (Given - Provider: Hayley Vela RN)0818 (Given - Provider: Judie Hooker, ATTILA)1211 (Given - Provider: Judie Hooker, RN)1555 (Given - Provider: Betzy Tom RN)2040 (Given - Provider: Odalis Araiza, ATTILA) 0041 (Given - Provider: Odalis Aariza, ATTILA)0447 (Given - Provider: Odalis Araiza, RN)0844 (Given - Provider: Judie Hooker, RN)1223 (Given - Provider: Judie Hooker, ATTILA) oxyCODONE (ROXICODONE) tablet 5 mg 5 mg, Oral, EVERY 4 HOURS PRN, Starting on 06/20/20 at 0348, Until 06/21/20 at 1443, Pain (See admin instructions), Routine oxytocin in sodium chloride 0.9 % (PITOCIN) 20 units in 1,000 mL infusion IV, at 999 mL/hr, CONTINUOUS PRN, Starting on Mon06/19/20 at 0536, Until 06/21/20 at 1443, Other (See Comment), excessive bleeding in the immediate period, Routine 1040 (Due) simethicone chewable tablet 80 mg 80 mg, Oral, EVERY 6 HOURS PRN, Starting on Mon06/19/20 at 1119, Until 06/21/20 at 1443, Gas, Routine, Post-op - Floor 1805 (Given - Provider: Diamond Willis RN) 0137 (Given - Provider: Hayley Vela RN) tranexamic acid (CYKLOKAPRON) 1,000 mg in sodium chloride (iso-osmotic) 100 mL IVPB 1,000 mg, IV, ONE TIME PRN, 1 dose, Starting on Mon06/19/20 at 0536, Until 06/21/20 at 1443, Other (See Comment), Physician consultation required before administration for appropriate medication selection, Routine witch Audrey (TUCKS) 50 % topical pads 1 Each 1 Each, Topical, DAILY PRN, Starting on Mon06/19/20 at 1119, Until 06/21/20 at 1443, Discomfort, Routine, Post-op - Floor documented in this encounter
--- OUTSIDE RECORDS SUMMARY | 2024-05-27 15:09 | XMS_ITS | Encounter Summary ---
Author Organization [facility] Address [address] [facility] Attn: Epic Prelude ADT [place] [address] Care Team Providers Care Manager Transport Name Role Phone Unavailable Primary Care Provider Unavailabl e Encounter Details Date Type Department Care Team (Latest Contact Info) Description 06/21/2020 Encounter Social History Tobacco Use Types Packs/Day Years [...] COVID-19? No / Unsure 06/19/2020 5:36 AM SCRAP CUTTER documented as of this encounter Miscellaneous Notes * Note - Dianna Cobian RN - 06/21/2020 11:30 AM CST This note was copied from a baby's chart. note: S: consult per order, third time mom. Mom reports first child for one year.Mom states that her goal is to breastfeed her baby. Mom also reports her milk has started coming in. O: Infant was born at 36 weeks and 2 days. Breasts- tissue soft, full Nipples- everted, compressible Mom can hand express drops of creamy yellow milk. 1015-Attempted to observe baby at breast, but uninterested at this time. Baby had previously fed. 1130- Attempted to observe baby at breast, but LC arrived at end of feeding. Mom reports proper signs of latching and improvement. Discussed positioning, sustaining a deep latch, signs of effective milk transfer, and satiety. Reviewed adnu-rz-oxko benefits. Reviewed diet and nutrition for mom. Mom has a Spectra pump for home, and does not work outside of the home. Reviewed and discussed the section of the A New Beginning - Caring for yourself and your baby book. A: progressing P: Breastfeed baby with all feeding cues or at least every 2-3 hours, with 8-12 feedings in 24 hours. Supplement as directed. Follow HCP instructions. Consider double pumping when supplements are given, give all EBM first and follow with ABM when needed. Increase ramw-sm-tzyk time between feedings to stimulate feeding cues. Keep a diary of feedings and diapers. Reviewed ways to get continued assistance with [facility]. Zone # on board, to call with further needs. Time: 30 minutes (out at 1015 & 1130) P CUTTER documented in this encounter Plan of Treatment Upcoming Encounters Date Type Department Care Team (Late st Contact Info) Description 10/08/2024 9:45 AM CDT Office Visit [facility] PRESCHOOL ASSISTANT - Medical [facility] [address] [address] Terrie Manning MD [address] [facility] [address] [place] [address] documented as of this encounter Visit Diagnoses Not on filedocumented in this encounter
--- OUTSIDE RECORDS SUMMARY | 2024-05-27 15:09 | XMS_ITS | Encounter Summary ---
Author Organization [facility] Address [address] [place] [address] Care Team Providers Care Risk Control Product Liability Director Name Role Phone Unavailable Primary Care Provider Unavailabl e Reason for Visit * Reason Onset Date Comments DAINA PA APPROVED 02/06/2024 Encounter Details Date Type Department Care Team (Late st Contact Info) Description 02/06/2024 Telephone [facility] BLOCK MASON - Medical [address] [address] Terrie Manning MD [address] [place] [address] ARLEYRELSETH PA APPROVED Social History Tobacco Use Types Packs/Day Years Used Date Smoking Tobacco: Never Smokeless Tobacco: Never Alcohol Use Standard Drinks/Week Comments Yes 0 (1 standard drink = 0.6 oz pur e alcohol) 2-3 drinks a month Sex and Gender Information Value Date Recorded Sex Assigned at Not on file Gender Identity Not on file Sexual Orientation Not on file documented as of this encounter Miscellaneous Notes * Telephone Encounter - Dina Donovan CMA - 02/06/2024 4:30 PM CDT PA FOR UBRELVY APPROVED. GOOD UNTIL 02/05/25 documented in this encounter Plan of Treatment Upcoming Encounters Date Type Department Care Team (Late st Contact Info) Description 10/08/2024 9:45 AM CDT Office Visit [facility] BLOCK MASON - Medical [place] [id number] [address] Terrie Manning MD [address] [place] [address] documented as of this encounter Visit Diagnoses Not on filedocumented in this encounter
--- OUTSIDE RECORDS SUMMARY | 2024-05-27 15:09 | XMS_ITS | Encounter Summary ---
Author Organization [facility] Address [address] [facility] Attn: [place] [address] Care Team Providers Care Refuse Collector Name Role Phone Terrie Manning MD Primary Care Provider [phone]- [phone] Encounter Details Date Type Department Care Team (Latest Contact Info) Description 03/25/2020 Travel Social History Tobacco Use Types Packs/Day [...] have Coronavirus / COVID-19? No / Unsure 03/25/2020 11:22 AM CDT documented as of this encounter Plan of Treatment Upcoming Encounters Date Type Department Care Team (Late st Contact Info) Description 10/08/2024 9:45 AM CDT Office Visit [facility] SUPPORT WORKER - Medical [place] [address] [phone] Terrie Manning MD [address] [address] documented as of this encounter Visit Diagnoses Not on filedocumented in this encounter Care Teams Refuse Collector Relationship Specialty Start Date End Date Terrie Manning MD PCP - General Obstetrics and Gynecology 05/27/13 documented as of this encounter
--- OUTSIDE RECORDS SUMMARY | 2024-05-27 15:09 | XMS_ITS | Encounter Summary ---
Author Organization [facility] Address [address] [place] [address] Care Team Providers Care Cook Helper Juice Name Role Phone Unavailable Primary Care Provider Unavailabl e Reason for Visit * Reason Comments Well Woman Exam Encounter Details Date Type Department Care Team (Late st Contact Info) Description 10/03/2023 9:45 AM CDT Office Visit [facility] AIR CONDITIONER INSTALLER HELPER - Medical [address] [address] Terrie Baca MD [address] [place] [address] Well female exam with routine gynecological exam (Primary Dx); Menstrual migraine without status migrainosus, not intractable; Vaginal discharge Social History Tobacco Use Types Packs/Day Years Used Date Smoking Tobacco: Never Smokeless Tobacco: Never Tobacco Cessation:Counseling Given: Not Answered Alcohol Use Standard Drinks/Week Comments Yes 0 (1 standard drink = 0.6 oz pur e alcohol) 2-3 drinks a month Sex and Gender Information Value Date Recorded Sex Assigned at Not on file Gender Identity Not on file Sexual Orientation Not on file documented as of this encounter Last Filed Vital Signs Vital Sign Reading Time Taken Comments Blood Pressure 112/80 10/03/2023 10:08 AM CDT Pulse - - Temperature - - Respiratory Rate - - Oxygen Saturation - - Inhaled Oxygen Concentration - - Weight 75.6 kg (166 lb 9.6 oz) 10/03/2023 10:08 AM CDT Height 180.1 cm (5' 10.9 ) 10/03/2023 10:08 AM C DT Body Mass Index 23.3 10/03/2023 10:08 AM CDT documented in this encounter Progress Notes * Terrie Baca MD - 10/03/2023 10:26 AM CDT CC: Well-Woman Exam HPI: Angela Alarcon is a 37 y.o. female who presents today for her annual well- woman exam. She is having a vaginal discharge with itching and burning. She does perform monthly self breast exams and has not noticed any changes or masses. Patient's last menstrual period was 09/16/2023 (exact date). Periods are regular. Review of Systems Constitutional: Negative for appetite change, fatigue and fever. HENT: Negative. Eyes: Negative. Respiratory: Negative for cough and shortness of breath. Cardiovascular: Negative for chest pain and leg swelling. Gastrointestinal: Negative for abdominal pain, constipation, diarrhea, nausea and vomiting. Endocrine: Negative. Negative for cold intolerance. Genitourinary: Negative for dysuria, frequency and urgency. Musculoskeletal: Negative for arthralgias, back pain and myalgias. Skin: Negative for rash. Allergic/Immunologic: Negative. Neurological: Negative for weakness, light-headedness and headaches. Hematological: Negative for adenopathy. Does not bruise/bleed easily. Psychiatric/Behavioral: Negative for sleep disturbance. The patient is not nervous/anxious. OB History Para Term AB Living 4 3 1 2 1 2 SAB IAB Ectopic Multiple Live Births 1 0 0 0 3 # Outcome Date GA Lbr Ryan/2nd Weight Sex Delivery Anes PTL Lv 4 06/19/20 36w2d 3125 g (6 lb 14.2 oz) F CS-LTranv EPIDURAL/SPI WILY 3 04/01/19 36w2d 1729 g (3 lb 13 oz) F CS-LTranv Spinal, EPIDURAL/SPI ND Complications: Other, Trisomy 18 2 Term 08/21/17 40w2d 4139 g (9 lb 2 oz) M CS-LTranv EPI N WILY Comments: No observed anomalies 1 SAB 08/2016 SAB Past Medical History: Diagnosis Date Abdominal pain Anxiety no meds during Congenital heart defect states hole eventually closed up , murmur Diarrhea 06/03/13 GERD (gastroesophageal reflux disease) Hx of abnormal cervical Pap smear IBS (irritable bowel syndrome) Nutritional anemia, unspecified Unsp cond assoc w female genital organs and menstrual cycle IVF Past Surgical History: Procedure Laterality Date HX AMNIOCENTESIS 12/2018 HX DILATION AND CURETTAGE HX LEEP PROCEDURE 2016 HX WISDOM TEETH EXTRACTION [place] DELIVERY ONLY N/A 08/21/2017 SECTION performed by Terrie Baca MD at [facility] [place] DELIVERY ONLY N/A 04/01/2019 SECTION performed by Terrie Baca MD at [facility] [place] DELIVERY ONLY N/A 06/19/2020 SECTION performed by Terrie Baca MD at [facility] [place] COLONOSCOPY FLX DX W/COLLJ SPEC WHEN PFRMD 06/06/2013 COLONOSCOPY performed by Xavi Aquino MD at [facility] [place] ESOPHAGOGASTRODUODENOSCOPY TRANSORAL DIAGNOSTIC 06/06/2013 ESOPHAGOGASTRODUODENOSCOPY performed by Xaiv Aquino MD at [facility] [place] HYSTEROSCOPY BX ENDOMETRIUM&/POLYPC W/WO D&C N/A 08/11/2016 HYSTEROSCOPY WITH DILATATION AND CURETTAGE SUCTION performed by Dustin Bill MD at [facility] [place] ORAL SURGERY Family History Problem Relation Name Age of Onset Colon Polyps Maternal Grandmother Hypertension Father Jone Billings No Known Problems Mother Colon Cancer Paternal Grandfather Sergio Billings Healthy Son Bob Alarcon Social History Tobacco Use Smoking status: Never Smokeless tobacco: Never Vaping Use Vaping status: Never Used Substance Use Topics Alcohol use: Yes Alcohol/week: 0.0 standard drinks of alcohol Comment: 2-3 drinks a month Drug use: No Social History Substance and Sexual Activity Sexual Activity Yes Partners: Male control/protection: None Comment: Alvin had a vasectomy in 2020 Current Outpatient Medications Medication Sig Dispense Refill ubrogepant (Ubrelvy) 100 mg tablet Take 1 Tablet (100 mg) by mouth daily. TAKE 1 TABLET (100 MG) BYMOUTH DAILY. TAKE ONE TABLET DIRECTED. MAY REPEAT DOSE ONCE IF NO RESOLVE IN SYMPTOMS AFTER 2 HR. DO NOT EXCEED 200 MG IN 24 HOURS. Strength: 100 mg 16 Tablet 6 fluconazole (DIFLUCAN) 150 mg tablet Take 1 Tablet (150 mg) by mouth every third day for 2 doses. Take one tablet by mouth today, repeat in 72 hours. 2 Tablet 0 [DISCONTINUED] ubrogepant (Ubrelvy) 100 mg tablet Take 1 Tablet (100 mg) by mouth daily. TAKE 1 TABLET (100 MG) BY MOUTH DAILY. TAKE ONE TABLET DIRECTED. MAY REPEAT DOSE ONCE IF NO RESOLVE IN SYMPTOMS AFTER 2 HR. DO NOT EXCEED 200 MG IN 24 HOURS. Strength: 100 mg 8 Tablet 6 No current facility-administered medications for this visit. No Known Allergies Screening: No results found for this or any previous visit. Physical Exam: Vitals: 10/03/23 1008 BP: 112/80 BP Location: Right arm Patient Position (BP): Sitting BP Cuff Size: Adult Weight: 75.6 kg (166 lb 9.6 oz) Height: 5' 10.9 (1.801 m) Physical Exam Constitutional: General: She is not in acute distress. Appearance: Normal appearance. Genitourinary: Vulva, bladder and urethral meatus normal. Vulva exam comments: Normal. No vaginal discharge. Right Adnexa: no mass present. Left Adnexa: no mass present. Cervical exam comments: Normal. Uterus exam comments: Small, mobile in midline. Breasts: Right: No mass or skin change. Left: No mass or skin change. HENT: Head: Normocephalic and atraumatic. Eyes: Extraocular Movements: Extraocular movements intact. Pupils: Pupils are equal, round, and reactive to light. Cardiovascular: Rate and Rhythm: Normal rate and regular rhythm. Heart sounds: Normal heart sounds. No murmur heard. Pulmonary: Effort: Pulmonary effort is normal. Breath sounds: Normal breath sounds. No wheezing. Abdominal: General: There is no distension. Palpations: Abdomen is soft. There is no mass. Tenderness: There is no abdominal tenderness. Hernia: No hernia is present. Musculoskeletal: General: No swelling. Cervical back: Neck supple. No muscular tenderness. Right lower leg: No edema. Left lower leg: No edema. Lymphadenopathy: Cervical: No cervical adenopathy. Upper Body: Right upper body: No supraclavicular adenopathy. Left upper body: No supraclavicular adenopathy. Neurological: General: No focal deficit present. Mental Status: She is alert and oriented to person, place, and time. Skin: General: Skin is warm and dry. Psychiatric: Mood and Affect: Mood normal. Behavior: Behavior normal. Assessment/Plan: 37 y.o. female here today for a well-woman exam. 1. Well female exam with routine gynecological exam - CERV/VAG CYTO SCREEN PAP RLFX HPV; Future 2. Menstrual migraine without status migrainosus, not intractable 3. Vaginal discharge 1. Pap obtained today. Will follow-up with the results with the patient as they become available. 2. Health Maintenance - Encouraged self breast exams. 3. Contraception - vasectomy. 4. Vaginal discharge-C/W a yeast infection. Diflucan Erx. 5. RTC 1yr for WWE or sooner if she has any questions, concerns, complaints. Terrie Baca MD documented in this encounter Plan of Treatment Upcoming Encounters Date Type Department Care Team (Late st Contact Info) Description 10/08/2024 9:45 AM CDT Office Visit [facility] AIR CONDITIONER INSTALLER HELPER - [address] [address] Terrie Baca MD [facility] [address] [facility] [address] [place] [address] documented as of this encounter Procedures Procedure Name Priority Date/Time Associated Diagnosis Comments CERV/VAG CYTO SCREEN PAP RLFX HPV Routine 10/03/2023 1:46 PM CDT Well female exam with routine gynecological exam documented in this encounter Results * CERV/VAG CYTO SCREEN PAP RLFX HPV (10/03/2023 1:46 PM CDT) [facility] CLINICAL INFORMATION Latha Prather Comment: Routine exam WWE LAST MENSTRUAL PERIOD Latha DiazVargas Prather Comment:[id number] PREV PAP: Latha Prather Comment:NONE GIVEN PREV BX: Latha Prather Comment:NONE GIVEN SOURCE Latha Prather Comment:Endocervix ADEQUACY: Latha Prather Comment: Satisfactory for evaluation. Endocervical/transformation zone component present. PAP INTERP Latha Prather Comment: Cytology Results: Negative for intraepithelial lesion or malignancy. CYTOLOGY INFECTION Q levi Keyur Prather Comment: Fungal organisms morphologically consistent with Jamee spp. COMMENT (PAP TEST) Q ulonnie Keyur Prather Comment: This Pap test has been evaluated with computer assisted technology. HOUSEMAN: lonnie Prather Comment: LMT, CT(ASCP) CT screening location: [place] [address] [address] [place] [address] REVIEW HOUSEMAN: Latha Prather Comment: DASILVA, CT(ASCP) CT Screening location: [facility] [place] [address] Keyur Prather Comment: EXPLANATORY NOTE: The Pap is a screening test for cervical cancer. It is not a diagnostic test and is subject to false negative and false positive results. It is most reliable when a satisfactory sample, regularly obtained, is submitted with relevant clinical findings and history, and when the Pap result is evaluated along with historic and current clinical information. Test Performed at: [facility] [place] [address] [address] [place] ??[id number] GuerdaLoriKerry Aguirre Genital SWAB OF ENDOCERVIX / Unknown 10/03/2023 1:46 PM CDT 10/04/2023 1:17 AM CDT Terrie Baca MD PATHOLOGY/CYTOLOGY ORDERABLES [facility] [phone] [facility] [place] [address] [address] [place] [phone] documented in this encounter Visit Diagnoses Diagnosis Well female exam with routine gynecological exam- Primary Routine gynecological examination Menstrual migraine without status migrainosus, not intractable Menstrual migraine, without mention of intractable migraine without mention of status migrainosus Vaginal discharge Leukorrhea, not specified as infective documented in this encounter
--- OUTSIDE RECORDS SUMMARY | 2024-05-27 15:09 | XMS_ITS | Encounter Summary ---
Author Organization [facility] Address [address] [place] [address] Care Team Providers Care Umbrella Tipper Machine Name Role Phone Terrie Manning MD Primary Care Provider +1- [phone] Encounter Details Date Type Department Care Team (Latest Contact Info) Description 04/22/2020 11:00 AM ENGINEER GEOPHYSICAL LABORATORY - 04/22/2020 11:59 PM [facility] Hospital Encounter [facility] Laboratory Services Medical [place] A [address] [place] [address], [place] [address] Terrie Manning MD [facility] [address] [facility] [address] [address] Discharge Disposition: Home or Self Care Social History Tobacco Use Types Packs/Day Years [...] have Coronavirus / COVID-19? No / Unsure 04/22/2020 10:59 AM ENGINEER GEOPHYSICAL LABORATORY documented as of this encounter Medications at Time of Discharge Medication Sig Dispensed Refills Start Date End Date Folic Acid-Vit B6-Vit B12 (TL Rd Rx) 2.2-25-1 mg Tablet Take 1 Tablet by mouth daily. 30 Tablet 11 04/22/2020 04/23/2020 sertraline (ZOLOFT) 50 mg tablet Take 1 Tablet (50 mg) by mouth daily. 90 Tablet 1 04/13/2020 09/07/2020 documented as of this encounter Plan of Treatment Upcoming Encounters Date Type Department Care Team (Late st Contact Info) Description 10/08/2024 9:45 AM CDT Office Visit [facility] PMO BUSINESS ANALYST - Medical [facility] [address] [facility] [address] [address] Terrie Manning MD [address] [place] [address] documented as of this encounter Procedures Procedure Name Priority Date/Time Associated Diagnosis Comments GLUCOSE TOLERANCE 1 HR GESTATIONAL Routine 04/22/2020 12:06 PM ENGINEER GEOPHYSICAL LABORATORY with 28 completed weeks gestation CBC WITH DIFFERENTIAL Routine 04/22/2020 12:06 PM ENGINEER GEOPHYSICAL LABORATORY Encounter for screening of mother TSH Routine 04/22/2020 12:06 PM ENGINEER GEOPHYSICAL LABORATORY Encounter for screening of mother documented in this encounter Results * (ABNORMAL) CBC WITH DIFFERENTIAL (04/22/2020 12:06 PM ENGINEER GEOPHYSICAL LABORATORY) [facility] WBC 6.7 4.0 - 9.8 K/uL 04/22/2020 12:27 PM ENGINEER GEOPHYSICAL LABORATORY [facility] LABORATORY SERVICES [facility] RBC 3.31(L) 3.90 - 4.90 M/uL 04/22/2020 12:27 PM ENGINEER GEOPHYSICAL LABORATORY [facility] LABORATORY SERVICES [facility] HEMOGLOBIN 10.3(L) 11.8 - 14.8 g/dL 04/22/2020 12:27 PM ENGINEER GEOPHYSICAL LABORATORY [facility] LABORATORY SERVICES [facility] HEMATOCRIT 33.1(L) 35.5 - 44.0 % 04/22/2020 12:27 PM ENGINEER GEOPHYSICAL LABORATORY [employer] LABORATORY [facility] - . [facility] MCV 100.0(H) 82.0 - 99.0 fL 04/22/2020 12:27 PM ENGINEER GEOPHYSICAL LABORATORY [employer] LABORATORY SERVICES - . [place] MCH 31.1 27.2 - 32.6 pg 04/22/2020 12:27 PM ENGINEER GEOPHYSICAL LABORATORY [employer] [facility] - [facility] MCHC 31.1(L) 31.5 - 35.5 g/dL 04/22/2020 12:27 PM ENGINEER GEOPHYSICAL LABORATORY [employer] [facility]ORAT[facility] - . [place] RDW 13.2 11.5 - 14.5 % 04/22/2020 12:27 PM ENGINEER GEOPHYSICAL LABORATORY [employer] [facility]ORATORY SERVICES - [facility] RDW-STDEV 49.2(H) 37.1 - 48.7 fL 04/22/2020 12:27 PM ENGINEER GEOPHYSICAL LABORATORY [facility] - [facility] PLATELETS 263 140 - 350 K/uL 04/22/2020 12:27 PM ENGINEER GEOPHYSICAL LABORATORY [employer] [facility] - [facility] MPV 8.9(L) 9.3 - 12.4 fL 04/22/2020 12:27 PM ENGINEER GEOPHYSICAL LABORATORY [employer] [facility] - . [facility] NEUTROPHILS 71 % 04/22/2020 12:27 PM ENGINEER GEOPHYSICAL LABORATORY [employer] [facility] - . [facility] LYMPHOCYTES 18 % 04/22/2020 12:27 PM ENGINEER GEOPHYSICAL LABORATORY [employer] [facility] - . [facility] MONOCYTES 10 % 04/22/2020 12:27 PM ENGINEER GEOPHYSICAL LABORATORY [employer] [facility] - . [facility] EOSINOPHILS 1 % 04/22/2020 12:27 PM ENGINEER GEOPHYSICAL LABORATORY [employer] [facility] - . [facility] BASOPHILS 0 % 04/22/2020 12:27 PM ENGINEER GEOPHYSICAL LABORATORY [employer] [facility] - . [facility] IMMATURE GRANULOCYTES 1 % 04/22/2020 12:27 PM ENGINEER GEOPHYSICAL LABORATORY [employer] - . [facility] Comment:IG (Immature Granulo cyte) count includes Metamyelocytes, Myelocytes, and Promyelocytes NEUTROPHIL ABSOLUTE 4.74 1.90 - 7.00 K/uL 04/22/2020 12:27 PM ENGINEER GEOPHYSICAL LABORATORY [facility] - . [place] LYMPHOCYTE ABSOLUTE 1.19 0.70 - 4.50 K/uL 04/22/2020 12:27 PM ENGINEER GEOPHYSICAL LABORATORY [facility] - . [facility] MONOCYTE ABSOLUTE 0.65 0.10 - 1.30 K/uL 04/22/2020 12:27 PM ENGINEER GEOPHYSICAL LABORATORY [employer] - . [facility] EOSINOPHIL ABSOLUTE 0.03 0.00 - 0.70 K/uL 04/22/2020 12:27 PM ENGINEER GEOPHYSICAL LABORATORY [facility] LABORATORY [facility] BASOPHILS ABSOLUTE 0.01 0.00 - 0.20 K/uL 04/22/2020 12:27 PM ENGINEER GEOPHYSICAL LABORATORY [facility] LABORATORY [facility] IMMATURE GRANULOCYTES ABSOLUTE 0.04(H) 0.00 - 0.03 K/uL 04/22/2020 12:27 PM ENGINEER GEOPHYSICAL LABORATORY [facility] LABORATORY [facility] Blood Venipuncture / Unknown 04/22/2020 12:06 PM ENGINEER GEOPHYSICAL LABORATORY 04/22/2020 12:19 PM ENGINEER GEOPHYSICAL LABORATORY Terrie Manning MD HEMATOLOGY ORDERAB LES [facility]# [id number] [address] [place] [address] * TSH (04/22/2020 12:06 PM ENGINEER GEOPHYSICAL LABORATORY) TSH 0.75 0.27 - 4.20 uIU/mL 04/22/2020 1:16 PM ENGINEER GEOPHYSICAL LABORATORY [facility] [employer] [facility] Blood Venipuncture / Unknown 04/22/2020 12:06 PM ENGINEER GEOPHYSICAL LABORATORY 04/22/2020 12:18 PM ENGINEER GEOPHYSICAL LABORATORY Terrie Manning MD CHEMISTRY ORDERABL ES Performing Organization Address City/[facility]/ZIP Co de Phone Number [facility]# [id number] [address] [place] [address] * GLUCOSE TOLERANCE 1 HR GESTATIONAL (04/22/2020 12:06 PM ENGINEER GEOPHYSICAL LABORATORY) GLUCOSE DOSE 50 Gram 04/22/2020 1:09 PM ENGINEER GEOPHYSICAL LABORATORY [facility] LABORATORY [facility] GLUCOSE 1 HR OBSTETRIC 87 65 - 139 mg/dL 04/22/2020 1:09 PM ENGINEER GEOPHYSICAL LABORATORY [facility] LABORATORY [facility] Blood Venipuncture / Unknown 04/22/2020 12:06 PM ENGINEER GEOPHYSICAL LABORATORY 04/22/2020 12:18 PM ENGINEER GEOPHYSICAL LABORATORY Terrie Manning MD CHEMISTRY ORDERABL ES [facility] LABORATORY [facility]# [id number] [address] [place] [address] documented in this encounter Visit Diagnoses Diagnosis with 28 completed weeks gestation Encounter for screening of mother Unspecified screening documented in this encounter Care Teams Umbrella Tipper Machine Relationship Specialty Start Date End Date Terrie Manning MD PCP - General Obstetrics and Gynecology 05/27/13 documented as of this encounter
--- OUTSIDE RECORDS SUMMARY | 2024-05-27 15:09 | XMS_ITS | Encounter Summary ---
Author Organization [facility] Address [address] [facility] Attn: [place] [address] Care Team Providers Care Animal Stunner Name Role Phone Terrie Manning MD Primary Care Provider +1- [phone] Encounter Details Date Type Department Care Team (Latest Contact Info) Description 04/22/2020 Travel Social History Tobacco Use Types Packs/Day [...] COVID-19? No / Unsure 04/22/2020 10:59 AM MANAGER PACKAGING documented as of this encounter Plan of Treatment Upcoming Encounters Date Type Department Care Team (Late st Contact Info) Description 10/08/2024 9:45 AM CDT Office Visit [facility] ELEVATOR EXAMINER AND ADJUSTER - Medical [place] [address] [place] [phone] Terrie Manning MD [address] [phone] documented as of this encounter Visit Diagnoses Not on filedocumented in this encounter Care Teams Animal Stunner Relationship Specialty Start Date End Date Terrie Manning MD PCP - General Obstetrics and Gynecology 05/27/13 documented as of this encounter
--- OUTSIDE RECORDS SUMMARY | 2024-05-27 15:09 | XMS_ITS | Encounter Summary ---
Author Organization [facility] Address [address] [place] [address] Care Team Providers Care Clinical Quality Rn Name Role Phone Unavailable Primary Care Provider Unavailabl e Reason for Visit * Reason Comments Well Woman Exam Encounter Details Date Type Department Care Team (Late st Contact Info) Description 09/27/2021 1:45 PM CDT [facility] Visit [facility] RETAIL SALESPERSON - Medical [address] [address] Terrie Baca MD [address] [place] [address] Well female exam with routine gynecological exam (Primary Dx); Menorrhagia with regular cycle; Anxiety state; Menstrual migraine without status migrainosus, not intractable Social History Tobacco Use Types Packs/Day Years [...] suspected to have Coronavirus/COVID-19? No / Unsure 09/27/2021 1:32 PM CDT documented as of this encounter Last Filed Vital Signs Vital Sign Reading Time Taken Comments Blood Pressure 116/80 09/27/2021 1:44 PM CDT Pulse - - Temperature - - Respiratory Rate - - Oxygen Saturation - - Inhaled Oxygen Concentration - - Weight 72.5 kg (159 lb 12.8 oz) 09/27/2021 1:44 PM CDT Height 179.1 cm (5' 10.5 ) 09/27/2021 1:44 PM CD T Body Mass Index 22.6 09/27/2021 1:44 PM CDT documented in this encounter Progress Notes * Terrie Baca MD - 09/27/2021 3:02 PM CDT CC: Well-Woman Exam HPI: Angela Alarcon is a 35 y.o. female who presents today for her annual well- woman exam. She is complaining of monthly menstrual migraines assoc with N/V. Her cycles are heavy. She does perform monthly self breast exams and has not noticed any changes or masses. Patient's last menstrual period was 09/08/2021 (exact date). Periods are regular. Review of Systems Constitutional: Negative for appetite change, fatigue and fever. HENT: Negative. Eyes: Negative. Respiratory: Negative for cough and shortness of breath. Cardiovascular: Negative for chest pain and leg swelling. Gastrointestinal: Negative for abdominal pain, constipation, diarrhea, nausea and vomiting. Endocrine: Negative. Negative for cold intolerance. Genitourinary: Negative for dysuria, frequency and urgency. Musculoskeletal: Positive for back pain. Negative for arthralgias and myalgias. Skin: Negative for rash. Allergic/Immunologic: Negative. Neurological: Positive for headaches. Negative for weakness and light-headedness. Hematological: Negative for adenopathy. Does not bruise/bleed easily. Psychiatric/Behavioral: Negative for sleep disturbance. The patient is nervous/anxious. OB History Para Term AB Living [...] 08/2016 SAB Past Medical History: Diagnosis Date ??? Abdominal [...] IVF Past Surgical History: Procedure Laterality Date ??? HX AMNIOCENTESIS 12/2018 ??? HX DILATION AND CURETTAGE ??? HX LEEP PROCEDURE 2015 ??? HX WISDOM TEETH EXTRACTION ??? ME DELIVERY ONLY N/A 08/21/2017 SECTION performed by Terrie Baca MD at [facility] ??? ME DELIVERY ONLY N/A 04/01/2019 SECTION performed by Terrie Baca MD at [facility] ??? ME DELIVERY ONLY N/A 06/19/2020 SECTION performed by Terrie Baca MD at [facility] ??? ME COLONOSCOPY FLX DX W/COLLJ SPEC WHEN PFRMD 06/06/2013 COLONOSCOPY performed by Xavi Aquino MD at [facility] ??? ME ESOPHAGOGASTRODUODENOSCOPY TRANSORAL DIAGNOSTIC 06/06/2013 ESOPHAGOGASTRODUODENOSCOPY performed by Xaiv Aquino MD at [facility] ??? ME HYSTEROSCOPY,W/ENDO BX N/A 08/11/2016 HYSTEROSCOPY WITH DILATATION AND CURETTAGE SUCTION performed by Dustin Bill MD at [facility] ??? ME ORAL SURGERY Family History Problem Relation Name Age of Onset ??? Colon Polyps Maternal Grandmother ??? Hypertension Father Jone Billings ??? No Known Problems Mother ??? Colon Cancer Paternal Grandfather Sergio Billings ??? Healthy Son Bob Alarcon Social History Tobacco Use ??? Smoking status: Never Smoker ??? Smokeless tobacco: Never Used Vaping Use ??? Vaping Use: Never used Substance Use Topics ??? Alcohol use: Yes Alcohol/week: 0.0 standard drinks Comment: 2-3 drinks a month ??? Drug use: No Social History Substance and Sexual Activity Sexual Activity Yes ??? Partners: Male ??? control/protection: None Comment: Patrick had a vasectomy in 2020 Current Outpatient Medications Medication Sig Dispense Refill ??? loratadine (Claritin) 10 mg tablet ??? sertraline (Zoloft) 25 mg tablet Take 1 Tablet (25 mg) by mouth daily. 30 Tablet 6 ??? PNV Comb No.59/Iron/FA/DHA (-DHA ORAL) Take by mouth. ??? [DISCONTINUED] sertraline (ZOLOFT) 50 mg tablet TAKE 1 TABLET BY MOUTH EVERY DAY 90 Tablet 0 No current facility-administered medications for this visit. No Known Allergies Screening: No results found for this or any previous visit. Physical Exam: Vitals: 09/27/21 1344 BP: 116/80 BP Location: Right arm Patient Position (BP): Sitting BP Cuff Size: Adult Weight: 72.5 kg (159 lb 12.8 oz) Height: 5' 10.5 (1.791 m) Physical Exam Constitutional: General: She is not in acute distress. Appearance: Normal appearance. Genitourinary: Vulva and bladder normal. No vaginal discharge. Breasts: Right: No mass, skin change or supraclavicular adenopathy. Left: No mass, skin change or supraclavicular adenopathy. HENT: Head: Normocephalic and atraumatic. Eyes: Extraocular [...] Affect: Mood normal. Behavior: Behavior normal. Assessment/Plan: 35 y.o. female here today for a well-woman exam. 1. Well female exam with routine gynecological exam - CERV/VAG CYTO AGE BASED SCREEN PAP; Future - CERV/VAG CYTO AGE BASED SCREEN PAP 2. Menorrhagia with regular cycle 3. Anxiety state 4. Menstrual migraine without status migrainosus, not intractable 1. Pap obtained today. Will follow-up with the results with the patient as they become available. 2. Health Maintenance - Encouraged self breast exams. 3. Contraception - Vasectomy 4. Menorrhagia-We discussed IUD. 5. Menstrual migraines-She wants to see if the IUD helps first and if not we will try a migraine medication. 6. Anxiety-Zoloft refilled. She is trying to wean off. 7. RTC 1yr for WWE or sooner if she has any questions, concerns, complaints. Terrie Baca MD documented in this encounter Plan of Treatment Upcoming Encounters Date Type Department Care Team (Late st Contact Info) Description 10/08/2024 9:45 AM CDT Office Visit [facility] RETAIL SALESPERSON - [facility] [address] [address] Terrie Baca MD [address] [facility] [address] [place] [address] documented as of this encounter Procedures Procedure Name Priority Date/Time Associated Diagnosis Comments CERV/VAG CYTO AGE BASED SCREEN PAP Routine 09/27/2021 2:25 PM CDT Well female exam with routine gynecological exam documented in this encounter Results * CERV/VAG CYTO AGE BASED SCREEN PAP (09/27/2021 2:25 PM CDT) COMMENT (PAP): [facility] Comment: This order for age-based cervical cancer and STI screening follows ACOG guidelines(PB 168, 140, MCP084). See individual assays for performing site location. CLINICAL INFORMATION [facility] Comment:Information not prov ided LAST MENSTRUAL PERIOD [facility] Comment:INFORMATION NOT PROV IDED PREV PAP: [facility] Comment:INFORMATION NOT PROV IDED PREV BX: [facility] Comment:INFORMATION NOT PROV IDED SOURCE [facility] Comment:Endocervix ADEQUACY: [facility] Comment: Satisfactory for evaluation. Endocervical/transformation zone component present. Age and/or menstrual status not provided PAP INTERP [facility] Comment:Negative for intraep ithelial lesion or malignancy. COMMENT (PAP TEST) [facility] Comment: This Pap test has been evaluated with computer assisted technology. AQUATIC LABORER: [facility] Comment: JENARO VARGHESE(ASCP) CT screening location: [place] [address] [place] [address] REVIEW AQUATIC LABORER: [facility] Comment: JENARO ROMEO(ASCP) CT screening location: [place] [address] [place] [address] EXPLANATORY NOTE [facility] Comment: EXPLANATORY NOTE: The Pap is a screening test for cervical cancer. It is not a diagnostic test and is subject to false negative and false positive results. It is most reliable when a satisfactory sample, regularly obtained, is submitted with relevant clinical findings and history, and when the Pap result is evaluated along with historic and current clinical information. HPV E6/E7 Not Detected Not Detected [facility] Comment: Methodology: Reconciliation Machine Operator-Mediated Amplification This assay detects E6/E7 viral messenger RNA (mRNA) from 14 high-risk HPV types (16,18,31,33,35,39,45,51,52,56,58,59,66,68). The analytical performance characteristics of this assay have been determined by [facility]. The modifications have not been cleared or approved by the FDA. This assay has been validated pursuant to the CLIA regulations and is used for clinical purposes. For additional information, please refer to http://education.[employer].Ads-Fi/faq/RAO816a1 (This link if provided for information/ educational purposes only.) Test Performed at: [facility] [address] [place], [place] ??[address] Vitaly Hardy D.O., MPH SL Genital SWAB OF ENDOCERVIX / Unknown 09/27/2021 2:25 PM CDT 09/28/2021 12:47 AM CDT Terrie Baca MD PATHOLOGY/CYTOLOGY ORDERABLES Performing Organization Address City/State/[facility] Co de Phone Number [facility] [address] [place] [address] documented in this encounter Visit Diagnoses Diagnosis Well female exam with routine gynecological exam- Primary Routine gynecological examination Menorrhagia with regular cycle Excessive or frequent menstruation Anxiety state Anxiety state, unspecified Menstrual migraine without status migrainosus, not intractable Menstrual migraine, without mention of intractable migraine without mention of status migrainosus documented in this encounter
--- OUTSIDE RECORDS SUMMARY | 2024-05-27 15:09 | XMS_ITS | Encounter Summary ---
Author Organization [facility] Address [address] [place] [address] Care Team Providers Care Trainman Name Role Phone Unavailable Primary Care Provider Unavailabl e Encounter Details Date Type Department Care Team (Late st Contact Info) Description 08/25/2023 External Device Data STL ABSTRACTION Provider, Abstract [...] Office Visit [facility] MANAGER FASHION - Medical [facility] [address] [facility] [address] [place] [address] Terrie Manning MD [address] [facility] [address] [place] [address] documented as of this encounter Visit Diagnoses Not on filedocumented in this encounter
--- OUTSIDE RECORDS SUMMARY | 2024-05-27 15:09 | XMS_ITS | Encounter Summary ---
Author Organization [facility] Address [address] [place] [address] Care Team Providers Care Nurse Anesthetist Name Role Phone Terrie Manning MD Primary Care Provider +1- [phone] Reason for Visit * Reason Onset Date Comments bereavement, 1 year anniversary 04/03/2020 Encounter Details Date Type Department Care Team (Late st Contact Info) Description 04/03/2020 Telephone [facility] [address] [place] [address] Odalis Schneider RN bereavement, 1 year anniversary Social History Tobacco Use Types Packs/Day Years [...] AM CDT documented as of this encounter Miscellaneous Notes * Telephone Encounter - Odalis Schneider RN - 04/03/2020 11:47 AM CDT Called to check on Angela and Patrick given yesterday marked the 1 year anniversary of the of their daughter, Flaco. Angela said they were doing pretty well, but Flaco's birthday and yesterday were both a bit emotional. She shared that they are throwing a little birthday celebration ton ight with the people who met Flaco when she was born. She voiced appreciation for the phone call. Iencouraged her to call if she would like to talk more in the future. [facility] [phone] documented in this encounter Plan of Treatment Upcoming Encounters Date Type Department Care Team (Late st Contact Info) Description 10/08/2024 9:45 AM CDT Office Visit [facility] SCHOOL SOCIAL WORKER - [address] [address] Terrie Manning MD [facility] [address] [place] [address] documented as of this encounter Visit Diagnoses Not on filedocumented in this encounter Care Teams Nurse Anesthetist Relationship Specialty Start Date End Date Terrie Manning MD PCP - General Obstetrics and Gynecology 05/27/13 documented as of this encounter
--- OUTSIDE RECORDS SUMMARY | 2024-05-27 15:09 | XMS_ITS | Encounter Summary ---
Author Organization [facility] Address [address] [place] [address] Care Team Providers Care Stallion Manager Name Role Phone Unavailable Primary Care Provider Unavailabl e Reason for Visit * Reason Comments Medication Refill Encounter Details Date Type Department Care Team ([facility] Contact Info) Description 07/27/2021 Refill [facility] MELTER SUPERVISOR ELECTRIC [employer] FURNACE - [address] [address] Terrie Manning MD [address] [address] Social History Tobacco Use Types Packs/Day [...] Upcoming Encounters Date Type Department Care Team ([facility] Contact Info) Description 10/08/2024 9:45 AM CDT Office Visit [facility] MELTER SUPERVISOR [employer]LECT[employer]IC [employer]URNACE - [address] [address] Terrie Manning MD [address] [place], [place] [address] [place] [address] documented as of this encounter Visit Diagnoses Not on filedocumented in this encounter
--- OUTSIDE RECORDS SUMMARY | 2024-05-27 15:09 | XMS_ITS | Encounter Summary ---
[facility] Organization [facility] Address 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 No / Unsure 06/10/2020 10:27 AM ORACLE DATA WAREHOUSE DEVELOPER documented as of this encounter Plan of Treatment Upcoming Encounters Date Type Department Care Team (Late st Contact Info) Description 10/08/2024 9:45 AM CDT Office Visit [facility] MANAGER PROGRAM MANAGEMENT - Medical [place] [address] [facility] [address] [place] [address] Terrie Baca MD [address] 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 , currently documented in this encounter Results * US OB FOLLOW UP PER FETUS (06/10/2020 10:47 AM ORACLE DATA WAREHOUSE DEVELOPER) Anatomical Region Laterality Modality Pelvis Ultrasound Study GA Study Date Study LEXIE Working LEXIE (Source) Feta l Weight (Method) 06/13/2020 07/15/2020 (Las t Menstrual Period) Result Name Value Comments BPD (Hadlock) cm HC (Hadlock) cm AC (Hadlock) cm FL (Hadlock) cm Humerus Length cm Cerebellum cm Nuchal Fold mm HC/AC Impressions 06/13/2020 10:00 PM ORACLE DATA WAREHOUSE DEVELOPER INDICATION: Prior fetus with Trisomy 18; Prior with T incision, Anxiety on Zoloft Gestational age: 35w0d EDC: 07/15/2020 EGA by u/s: 36w3d EDC by u/s 07/05/2020 FHR:159 RAMSEY:13.47cm EFW:2819g (74%) AC: 31.11cm (58%) Placenta:posterior Vertex Recommendation: Viable intrauterine . growth and RAMSEY are appropriate for gestational age. ??Follow up as clinically indicated. Terrie Baca MD Narrative Procedure Note Terrie Baca MD - 06/13/2020 IMPRESSION INDICATION: Prior fetus with Trisomy 18; Prior with T incision,Anxiety on Zoloft Gestational age: 35w0d EDC: 07/15/2020 EGA by u/s: 36w3d EDC by u/s 07/05/2020 FHR:159 RAMSEY:13.47cm EFW:2819g (74%) AC: 31.11cm (58%) Placenta:posterior Vertex Recommendation: Viable intrauterine . growth and RAMSEY areappropriate for gestational age. Follow up as clinically indicated. 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
--- OUTSIDE RECORDS SUMMARY | 2024-05-27 15:09 | XMS_ITS | Encounter Summary ---
Author Organization [facility] Address [address] [place] [address] Care Team Providers Care Food And Drug Research Scientist Name Role Phone Unavailable Primary Care Provider Unavailabl e Encounter Details Date Type Department Care Team (Late st Contact Info) Description 01/31/2024 External Device Data STL ABSTRACTION Provider, Abstract [...] Description 10/08/2024 9:45 AM CDT Office Visit [facility] FARMER TREE FRUIT AND NUT CROPS - Medical [facility] [address] [facility] [address] [place] [address] Terrie Manning MD [address] [facility] [address] [place] [address] documented as of this encounter Visit Diagnoses Not on filedocumented in this encounter
--- OUTSIDE RECORDS SUMMARY | 2024-05-27 15:09 | XMS_ITS | Encounter Summary ---
Author Organization [facility] Address [address] [place] [address] Care Team Providers Care Marketing Administrative Assistant Name Role Phone Unavailable Primary Care Provider Unavailabl e Encounter Details Date Type Department Care Team (Late st Contact Info) Description 07/25/2023 External Device Data STL ABSTRACTION Provider, Abstract [...] Description 10/08/2024 9:45 AM CDT Office Visit [facility] FRAME WELDER CARGO UTILITY TRAILERS - Medical [facility] [address] [facility] [address] [place] [address] Terrie Manning MD [address] [facility] [address] [place] [address] documented as of this encounter Visit Diagnoses Not on filedocumented in this encounter
--- OUTSIDE RECORDS SUMMARY | 2024-05-27 15:09 | XMS_ITS | Encounter Summary ---
Author Organization [facility] Address [address] [place] [address] Care Team Providers Care Volunteer Specialist Name Role Phone Unavailable Primary Care Provider Unavailabl e Encounter Details Date Type Department Care Team (Late st Contact Info) Description 07/05/2023 External Device Data STL ABSTRACTION Provider, Abstract [...] Description 10/08/2024 9:45 AM CDT Office Visit [facility] HOME HOUSEKEEPER - Medical [facility] [address] [facility] [address] [place] [address] Terrie Manning MD [address] [facility] [address] [place] [address] documented as of this encounter Visit Diagnoses Not on filedocumented in this encounter
--- OUTSIDE RECORDS SUMMARY | 2024-05-27 15:09 | XMS_ITS | Encounter Summary ---
Author Organization [facility] Address [address] [place] [address] Care Team Providers Care President Educational Institution Name Role Phone Unavailable Primary Care Provider Unavailabl e Encounter Details Date Type Department Care Team (Late st Contact Info) Description 06/30/2023 External Device Data STL ABSTRACTION Provider, Abstract [...] 10/08/2024 9:45 AM CDT Office Visit [facility] POULTRY PACKER - Medical [facility] [address] [facility] [address] [place] [address] Terrie Manning MD [address] [facility] [address] [place] [address] documented as of this encounter Visit Diagnoses Not on filedocumented in this encounter
--- OUTSIDE RECORDS SUMMARY | 2024-05-27 15:09 | XMS_ITS | Encounter Summary ---
Author Organization [facility] Address [address] [place] [address] Care Team Providers Care Rolling Mill Plugger Name Role Phone Unavailable Primary Care Provider Unavailabl e Reason for Visit * Reason Comments Medication Refill Encounter Details Date Type Department Care Team ([facility] Contact Info) Description 04/18/2021 Refill [facility] SHANK STITCHER - [address] [address] Terrie Manning MD [address] [address] Social History Tobacco Use Types [...] Upcoming Encounters Date Type Department Care Team ([facility] Contact Info) Description 10/08/2024 9:45 AM CDT Office Visit [facility] SHANK STITCHER - [address] [address] Terrie Manning MD [address] [place], [place] [address]A [place] [address] documented as of this encounter Visit Diagnoses Not on filedocumented in this encounter
--- OUTSIDE RECORDS SUMMARY | 2024-05-27 15:09 | XMS_ITS | Encounter Summary ---
Author Organization [facility] Address [address] [place] [address] Care Team Providers Care Addiction Specialist Name Role Phone Unavailable Primary Care Provider Unavailabl e Reason for Visit * Reason Onset Date Comments Medication Refill 06/29/2022 Encounter Details Date Type Department Care Team (Late Contact Info) Description 06/29/2022 Refill [facility] DONOR SPECIALIST [address] [address] Terrie Manning MD [address] [place] [address] Social History Tobacco Use Types Packs/Day [...] Description 10/08/2024 9:45 AM CDT Office Visit [facility] DONOR SPECIALIST - [address] [place] [address] Terrie Manning MD [address] [facility] [address] [address] documented as of this encounter Visit Diagnoses Not on filedocumented in this encounter
--- OUTSIDE RECORDS SUMMARY | 2024-05-27 15:09 | XMS_ITS | Encounter Summary ---
Author Organization [facility] Address 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 No / Unsure 06/10/2020 10:27 AM TIMBER SIZER documented as of this encounter Last Filed Vital Signs Vital Sign Reading Time Taken Comments Blood Pressure 136/74 06/10/2020 10:55 AM TIMBER SIZER Pulse - - Temperature - - Respiratory Rate - - Oxygen Saturation - - Inhaled Oxygen Concentration - - Weight 88.2 kg (194 lb 6.4 oz) 06/10/2020 10:55 AM TIMBER SIZER Height - - Body Mass Index 27.89 04/01/2019 6:25 AM CDT documented in this encounter Progress Notes * Terrie Baca MD - 06/10/2020 11:13 AM CST 35-37 Weeks LOUIE SUBJECTIVE: Reports +FM; no LOF, VB, regular UCs. OBJECTIVE: See flowsheet. ASSESSMENT: 34 y.o. at 35w0d wks PLAN: NL growth and RAMSEY on u/s today. Prior c/s with T incision-repeat c/s 06/19. Prior with Trisomy 18-nl NIPT Anxiety-Cont Zoloft Routine care. RTC 1 wks. Pt to call/come with further questions/concerns. Terrie Baca MD ER SIZER documented in this encounter Plan of Treatment Upcoming Encounters Date Type Department Care Team (Late st Contact Info) Description 10/08/2024 9:45 AM CDT Office Visit [facility] ORACLE APPLICATION CONSULTANT - Medical [facility] [address] [address] Terrie Baca MD [address] 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
--- OUTSIDE RECORDS SUMMARY | 2024-05-27 15:09 | XMS_ITS | Encounter Summary ---
Author Organization [facility] Address 5 [facility] Attn: [place] [address] Care Team Providers Care Elevator Technician Name Role Phone Unavailable Primary Care Provider Unavailabl e Encounter Details Date Type Department Care Team (Latest Contact Info) Description 06/02/2020 Travel Social History Tobacco Use Types Packs/Day [...] have Coronavirus / COVID-19? No / Unsure 06/02/2020 11:26 AM BRINEYARD SUPERVISOR documented as of this encounter Plan of Treatment Upcoming Encounters Date Type Department Care Team (Late st Contact Info) Description 10/08/2024 9:45 AM CDT Office Visit [facility] HEMODIALYSIS CHARGE NURSE - Medical [place] [address] [address] [address] Terrie Manning MD [address] [facility] [address] [address] documented as of this encounter Visit Diagnoses Not on filedocumented in this encounter
--- OUTSIDE RECORDS SUMMARY | 2024-05-27 15:09 | XMS_ITS | Encounter Summary ---
Author Organization [facility] Address [address] [place] [address] Care Team Providers Care Resp Therapist Name Role Phone Unavailable Primary Care Provider Unavailabl e Encounter Details Date Type Department Care Team (Late st Contact Info) Description 02/13/2024 External Device Data STL ABSTRACTION Provider, Abstract [...] 10/08/2024 9:45 AM CDT Office Visit [facility] EXTRUDER TENDER - Medical [facility] [address] [facility] [address] [place] [address] Terrie Manning MD [address] [facility] [address] [place] [address] documented as of this encounter Visit Diagnoses Not on filedocumented in this encounter
--- OUTSIDE RECORDS SUMMARY | 2024-05-27 15:09 | XMS_ITS | Encounter Summary ---
Author Organization [facility] Address [address] [place] [address] Care Team Providers Care Windsmith Name Role Phone Unavailable Primary Care Provider Unavailabl e Encounter Details Date Type Department Care Team (Late st Contact Info) Description 12/19/2023 External Device Data STL ABSTRACTION Provider, Abstract [...] Description 10/08/2024 9:45 AM CDT Office Visit [facility] LUBRICATION WORKER - Medical [facility] [address] [facility] [address] [place] [address] Terrie Manning MD [address] [facility] [address] [place] [address] documented as of this encounter Visit Diagnoses Not on filedocumented in this encounter
--- OUTSIDE RECORDS SUMMARY | 2024-05-27 15:09 | XMS_ITS | Encounter Summary ---
Author Organization [facility] Address [address] [facility] Attn: [place] [address] Care Team Providers Care Salesperson Yard Goods Name Role Phone Unavailable Primary Care Provider Unavailabl e Encounter Details Date Type Department Care Team (Latest Contact Info) Description 09/27/2022 Travel Social History Tobacco Use Types Packs/Day [...] suspected to have Coronavirus/COVID-19? No / Unsure 09/27/2022 2:07 PM CDT documented as of this encounter Plan of Treatment Upcoming Encounters Date Type Department Care Team (Late st Contact Info) Description 10/08/2024 9:45 AM CDT Office Visit [facility] MANAGER SUBWAY - Medical [facility] [address] [address] Terrie Manning MD [address] [facility] [address] [address] documented as of this encounter Visit Diagnoses Not on filedocumented in this encounter
--- OUTSIDE RECORDS SUMMARY | 2024-05-27 15:09 | XMS_ITS | Encounter Summary ---
Author Organization [facility] Address [address] [place] [address] Care Team Providers Care Process Equipment Operator Name Role Phone Unavailable Primary Care Provider Unavailabl e Encounter Details Date Type Department Care Team (Late st Contact Info) Description 12/05/2023 External Device Data STL ABSTRACTION Provider, Abstract [...] [facility] LEHR OPERATOR - Medical [facility] [address] [facility] [address] [place] [address] Terrie Manning MD [address] [facility] [address] [place] [address] documented as of this encounter Visit Diagnoses Not on filedocumented in this encounter
--- OUTSIDE RECORDS SUMMARY | 2024-05-27 15:09 | XMS_ITS | Encounter Summary ---
Author Organization [facility] Address [address] [place] [address] Care Team Providers Care Artillery Officer Name Role Phone Terrie Baca MD Primary Care Provider [phone] Reason for Visit * Reason Comments Routine Visit Encounter Details Date Type Department Care Team (Late st Contact Info) Description 05/20/2020 11:30 AM SHOPPER MARKETING MANAGER visit [facility] ELECTRIC GAS APPLIANCES DEMONSTRATOR - Medical [address] [address] Terrie Baca MD [address] [place], [place] [address] [place] [address] 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 , currently , third trimester (Primary Dx); Anxiety state; History of low vertical section; 32 weeks gestation of Social History Tobacco Use [...] have Coronavirus / COVID-19? No / Unsure 05/20/2020 11:38 AM SHOPPER MARKETING MANAGER documented as of this encounter Last Filed Vital Signs Vital Sign Reading Time Taken Comments Blood Pressure 116/70 05/20/2020 11:42 AM SHOPPER MARKETING MANAGER Pulse - - Temperature - - Respiratory Rate - - Oxygen Saturation - - Inhaled Oxygen Concentration - - Weight 84.5 kg (186 lb 3.2 oz) 05/20/2020 11:42 AM SHOPPER MARKETING MANAGER Height - - Body Mass Index 26.72 04/01/2019 6:25 AM CDT documented in this encounter Progress Notes * Mariann Martin - 05/20/2020 4:50 PM CST Pt was given a Tdap immunization today in the office. Pt tolerated injection well and left the office in stable condition. PER MARKETING MANAGER * Terrie Baca MD - 05/20/2020 12:30 PM CST 30-35 Weeks LOUIE SUBJECTIVE: Reports +FM; no LOF, VB, regular UCs. OBJECTIVE: See flowsheet. ASSESSMENT: 34 y.o. at 32w0d wks PLAN: Prior c/s with [id number] at 36 wks Prior child with Trisomy 18. NL NIPT. Anxiety-Cont Zoloft. TDAP today. Routine care RTC 2 wks. Pt to call/come with further questions/concerns. Terrie Baca MD PER MARKETING MANAGER documented in this encounter Plan of Treatment Upcoming Encounters Date Type Department Care Team (Late st Contact Info) Description 10/08/2024 9:45 AM CDT Office Visit [facility] ELECTRIC GAS APPLIANCES DEMONSTRATOR - Medical [facility] [address] [address] [address] Terrie Baca MD [address] [facility] [address] [address] documented as of this encounter Visit Diagnoses Diagnosis 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 , currently , third trimester- Primary Anxiety state Anxiety state, unspecified History of low vertical section 32 weeks gestation of state, incidental documented in this encounter Care Teams Artillery Officer Relationship Specialty Start Date End Date Terrie Baca MD PCP - General Obstetrics and Gynecology 05/27/13 documented as of this encounter
--- OUTSIDE RECORDS SUMMARY | 2024-05-27 15:09 | XMS_ITS | Clinical Summary ---
Author Organization [facility] Address [address] [place] [address] Phone Care Team Providers Care Client Partner Name Role Phone Unavailable Primary Care Provider Unavailabl e Allergies No known active allergies Medications Medication Sig Dispensed Refills Start Date End Date Status ubrogepant (Ubrelvy) 100 mg tablet Take 1 Tablet (100 mg) by mouth daily. TAKE 1 TABLET (100 MG) BY MOUTH DAILY. TAKE ONE TABLET DIRECTED. MAY REPEAT DOSE ONCE IF NO RESOLVE IN SYMPTOMS AFTER 2 HR. DO NOT EXCEED 200 MG IN 24 HOURS. Strength: 100 mg 16 Tablet 6 10/03/2023 Active Active Problems Problem Noted Date Diagnosed Date S/P section 06/19/2020 Resolved Problems Problem Noted Date Diagnosed Date Resolved Date RLTCS 04/0104/01/2019 06/19/2020 Normal labor and delivery 08/20/2017 Threatened in first trimester 08/09/2016 06/19/2020 Immunizations Name Administration Dates Next Due (ADACEL/BOOSTRIX)(10 YR UP) TDAP VACCINE, 0.5ML, IM 05/20/2020,06/26/2017 INFLUENZA VACCINE QUADRIVALENT 6 MOS UP PF IM ,04/03/2019 Influenza Seasonal Unspecified Formulation IM Family History Medical History Relation Name Comments Hypertension Father Jone Billings Colon Polyps Maternal Grandmother No Known Problems Mother Colon Cancer Paternal Grandfather Sergio Billings Healthy Son Bob Alarcon Relation Name Status Comments Daughter Father Jone Billings Alive Maternal Grandmother Alive Mother Alive Paternal Grandfather Serigo Billings Son Bob Alarcon Alive Social History Tobacco Use Types Packs/Day [...] Pressure 112/80 10/03/2023 10:08 AM CDT Pulse 85 06/21/2020 12:42 AM INK MAKER Temperature 36.9 ??C (98.5 ??F) 06/21/2020 7:26 AM CS T Respiratory Rate 18 06/21/2020 7:26 AM INK MAKER Oxygen Saturation 99% 06/19/2020 10:14 AM INK MAKER Inhaled Oxygen Concentration - - Weight 75.6 kg (166 lb 9.6 oz) 10/03/2023 10:08 AM CDT Height 180.1 cm (5' 10.9 ) 10/03/2023 10:08 AM C DT Body Mass Index 23.3 10/03/2023 10:08 AM CDT Plan of Treatment Upcoming Encounters Date Type Department Care Team (Late st Contact Info) Description 10/08/2024 9:45 AM CDT Office Visit [facility] RAT POISONER - Medical [facility] [address] [address] [address] Terrie Manning MD [address] [facility] [address] [address] Health Maintenance Due Date Last Done Comments HEPATITIS B VACCINES (1 of 3 - 19+ 3-dose series) 2004 INFLUENZA VACCINE (#1) 2024 , 04/03/2019, 06/22/2017 COVID-19 Vaccine ( season) 2024 02/07/2021, 01/06/2021 CERVICAL CANCER SCREENING 10/02/20262023, 09/27/2022, 09/27/2021, Additional history exists DTAP/TDAP/TD VACCINES (3 - Td or Tdap) 05/20/2030 05/20/2020, 06/26/2017 HPV VACCINES Aged Out No longer eligi ble based on patient's age to complete this topic PNEUMOCOCCAL VACCINE 0-64 YEARS Aged Out No longer eligible based on patient's age to complete this topic Procedures Procedure Name Priority Date/Time Associated Diagnosis Comments CERV/VAG CYTO SCREEN PAP RLFX HPV Routine 10/03/2023 1:46 PM CDT Well female exam with routine gynecological exam from Last 3 Months or Most Recently Relevant to Health Maintenance Results * CERV/VAG CYTO SCREEN PAP RLFX HPV (10/03/2023 1:46 PM CDT) CLINICAL INFORMATION Latha Prather Comment: Routine exam WWE LAST MENSTRUAL PERIOD Latha Prather Comment:[id number] PREV PAP: Latha Prather Comment:NONE GIVEN PREV BX: Latha Prather Comment:NONE GIVEN SOURCE Latha Prather Comment:Endocervix ADEQUACY: Latha Prather Comment: Satisfactory for evaluation. Endocervical/transformation zone component present. PAP INTERP Latha Prather Comment: Cytology Results: Negative for intraepithelial lesion or malignancy. CYTOLOGY INFECTION Q levi Prather Comment: Fungal organisms morphologically consistent with Jamee spp. COMMENT (PAP TEST) Q levi Prather Comment: This Pap test has been evaluated with computer assisted technology. CHORE TENDER: Homer Prather Comment: LMT, CT(ASCP) CT screening location: [place] [address] [address] [place] [address] REVIEW CHORE TENDER: Latha Prather Comment: DASILVA, CT(ASCP) CT Screening location: [facility] [place] [address] [place] [address] Keyur Prather Comment: [...] and current clinical information. Test Performed at: [place] [address] [address] [place] ??[phone] Sarah Jay Genital SWAB OF ENDOCERVIX / Unknown 10/03/2023 1:46 PM CDT 10/04/2023 1:17 AM CDT Terrie Manning MD PATHOLOGY/CYTOLOGY ORDERABLES [facility] [phone] [place] [address] [address] [place] [phone] from Last 3 Months or Most Recently Relevant to Health Maintenance Advance Directives For more information, please contact: [phone] * Full Code (Latest Code Status on File) Date Activated Date Inactivated Comments 06/19/2020 11:20 AM 06/21/2020 2:48 PM * Full Code Date Activated Date Inactivated Comments 06/19/2020 5:36 AM 06/19/2020 11:19 AM * Full Code Date Activated Date Inactivated Comments 04/01/2019 5:50 AM 04/03/2019 3:14 PM * Full Code Date Activated Date Inactivated Comments 08/21/2017 3:18 PM 08/25/2017 1:46 PM * Full Code Date Activated Date Inactivated Comments 08/21/2017 10:36 AM 08/21/2017 3:18 PM
--- OUTSIDE RECORDS SUMMARY | 2024-05-27 15:09 | XMS_ITS | Encounter Summary ---
Author Organization [facility] Address [address] [place] [address] Care Team Providers Care Telesales Advisor Name Role Phone Terrie Manning MD Primary Care Provider [phone]- [phone] Reason for Visit * Reason Comments Routine Visit Encounter Details Date Type Department Care Team (Late st Contact Info) Description 03/25/2020 11:30 AM CDT visit [facility] BEAD WRAPPER - Medical [address] [address] Terrie Manning MD [address] [place] [phone] 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 , currently , second trimester (Primary Dx); Anxiety state; History of low vertical section; Encounter for screening of mother; 24 weeks gestation of Social History Tobacco Use [...] AM CDT documented as of this encounter Last Filed Vital Signs Vital Sign Reading Time Taken Comments Blood Pressure 112/70 03/25/2020 11:26 AM CDT Pulse - - Temperature - - Respiratory Rate - - Oxygen Saturation - - Inhaled Oxygen Concentration - - Weight 79.7 kg (175 lb 9.6 oz) 03/25/2020 11:26 AM CDT Height - - Body Mass Index 25.2 04/01/2019 6:25 AM CDT documented in this encounter Progress Notes * Terrie Manning MD - 03/25/2020 11:43 AM CDT 20-24 Weeks LOUIE SUBJECTIVE: Reports +FM; no LOF, VB, abd cramping. No unusual complaints for this stage of . Discussedchildbirth education and anatomy scan. OBJECTIVE: See flowsheet. ASSESSMENT: 34 y.o. at 24w0d wks PLAN: GCT next OV Prior low vertical c/s-Repeat at 36 weeks. Prior child with Trisomy 18. Normal genetics. Anxiety-continue Zoloft Routine care RTC 4wks Pt instructed to call or return with further questions or concerns Terrie Manning MD documented in this encounter Plan of Treatment Upcoming Encounters Date Type Department Care Team (Late st Contact Info) Description 10/08/2024 9:45 AM CDT Office Visit [facility] BEAD WRAPPER - Medical [facility] [address] [address] [address] Terrie Manning MD [facility] [address] [place] [address] documented as of this encounter Visit Diagnoses Diagnosis 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 , currently , second trimester- Primary Anxiety state Anxiety state, unspecified History of low vertical section Encounter for screening of mother Unspecified screening 24 weeks gestation of state, incidental documented in this encounter Care Teams Telesales Advisor Relationship Specialty Start Date End Date Terrie Manning MD PCP - General Obstetrics and Gynecology 05/27/13 documented as of this encounter
--- OUTSIDE RECORDS SUMMARY | 2024-05-27 15:09 | XMS_ITS | Encounter Summary ---
Author Organization [facility] Address [address] [place] [address] Care Team Providers Care Census Enumerator Name Role Phone Unavailable Primary Care Provider Unavailabl e Encounter Details Date Type Department Care Team (Late st Contact Info) Description 07/01/2023 External Device Data STL ABSTRACTION Provider, Abstract [...] AM CDT Office Visit [facility] TUBE ROLLER - Medical [facility] [address] [facility] [address] [place] [address] Terrie Manning MD [address] [facility] [address] [place] [address] documented as of this encounter Visit Diagnoses Not on filedocumented in this encounter
--- OUTSIDE RECORDS SUMMARY | 2024-05-27 15:09 | XMS_ITS | Encounter Summary ---
Author Organization [facility] Address [address] [facility] Attn: [place] [address] Care Team Providers Care Government Teacher Name Role Phone Terrie Manning MD Primary Care Provider [phone]- [phone] Encounter Details Date Type Department Care Team (Latest Contact Info) Description 05/20/2020 Travel Social History Tobacco Use Types Packs/Day [...] COVID-19? No / Unsure 05/20/2020 11:38 AM CARPENTER REFRIGERATOR documented as of this encounter Plan of Treatment Upcoming Encounters Date Type Department Care Team (Late st Contact Info) Description 10/08/2024 9:45 AM CDT Office Visit [facility] HOSE TENDER - Medical [place] [address] [place] [phone] Terrie Manning MD [address] [phone] documented as of this encounter Visit Diagnoses Not on filedocumented in this encounter Care Teams Government Teacher Relationship Specialty Start Date End Date Terrie Manning MD PCP - General Obstetrics and Gynecology 05/27/13 documented as of this encounter
--- OUTSIDE RECORDS SUMMARY | 2024-05-27 15:09 | XMS_ITS | Encounter Summary ---
Author Organization [facility] Address [address] [place] [address] Care Team Providers Care Bath House Attendant Name Role Phone Unavailable Primary Care Provider Unavailabl e Encounter Details Date Type Department Care Team (Late st Contact Info) Description 02/20/2024 External Device Data STL ABSTRACTION Provider, Abstract [...] Description 10/08/2024 9:45 AM CDT Office Visit [facility] CONSTRUCTION STONEMASON - Medical [facility] [address] [facility] [address] [place] [address] Terrie Manning MD [address] [facility] [address] [place] [address] documented as of this encounter Visit Diagnoses Not on filedocumented in this encounter
--- OUTSIDE RECORDS SUMMARY | 2024-05-27 15:09 | XMS_ITS | Encounter Summary ---
Author Organization [facility] Address [address] [place] [address] Care Team Providers Care Explosives Handler Name Role Phone Unavailable Primary Care Provider Unavailabl e Reason for Visit * Reason Comments Post- Care Encounter Details Date Type Department Care Team (Late st Contact Info) Description 07/29/2020 11:10 AM BITUMINOUS PAVING MACHINE OPERATOR Office Visit [facility] STATISTICIAN MATHEMATICAL - Medical [address] [address] Terrie Manning MD [address] [place] [address] Status post section routine follow-up (Primary Dx) Social History Tobacco Use [...] have Coronavirus / COVID-19? No / Unsure 07/29/2020 11:22 AM BITUMINOUS PAVING MACHINE OPERATOR documented as of this encounter Last Filed Vital Signs Vital Sign Reading Time Taken Comments Blood Pressure 114/70 07/29/2020 11:31 AM BITUMINOUS PAVING MACHINE OPERATOR Pulse - - Temperature - - Respiratory Rate - - Oxygen Saturation - - Inhaled Oxygen Concentration - - Weight 80.2 kg (176 lb 12.8 oz) 021 11:31 AM BITUMINOUS PAVING MACHINE OPERATOR Height - - Body Mass Index 25.37 06/19/2020 6:19 AM BITUMINOUS PAVING MACHINE OPERATOR documented in this encounter Progress Notes * Terrie Manning MD - 07/29/2020 11:37 AM CST Chief Complaint: Post Visit HPI: Angela Alarcon is a 34 y.o. who is S/P LTCS. She is Breast feeding. She is on Zoloftfor anxiety and doing well. Physical Exam: Vitals: 07/29/20 1131 BP: 114/70 BP Location: Right arm Patient Position (BP): Sitting BP Cuff Size: Adult Weight: 80.2 kg (176 lb 12.8 oz) General: Well appearing female in no acute distress Abdomen: Soft, non tender, non distended Incision: Well healed. No erythema or drainage. Extremities: No calf tenderness Pelvic: Normal appearing external female genitalia. Vaginal mucosa is pink and moist without lesions. On speculum exam the cervix was visualized and noted to be normal in appearance. On bimanual exam, the uterus is small and mobile in the midline. No cervical motion tenderness noted. No adnexal masses or fulness noted bilaterally. Assessment and Plan: Angela Alarcon is a 34 y.o. who is s/p LTCS 6 weeks ago here today for a visit. 1. Patient recovering well 2. Plans to continue Breast feeding 3. Interested in condoms for contraception at this time. 4. Patient instructed to follow up in 3 months for well woman exam unless need arises prior Terrie Manning MD MINOUS PAVING MACHINE OPERATOR documented in this encounter Plan of Treatment Upcoming Encounters Date Type Department Care Team (Late st Contact Info) Description 10/08/2024 9:45 AM CDT Office Visit [facility] STATISTICIAN MATHEMATICAL - Medical [facility] [address] [facility] [address] [place] [address] Terrie Manning MD [address] [facility] [address] [address] documented as of this encounter Visit Diagnoses Diagnosis Status post section routine follow-up- Primary Routine follow-up documented in this encounter
--- OUTSIDE RECORDS SUMMARY | 2024-05-27 15:09 | XMS_ITS | Encounter Summary ---
Author Organization [facility] Address [address] [place] [address] Care Team Providers Care Health Screener Name Role Phone Unavailable Primary Care Provider Unavailabl e Encounter Details Date Type Department Care Team (Late Contact Info) Description 06/22/2020 Abstract [facility] ENVELOPE CUTTER - Medical [facility] [address] [place], [place] [phone] [address] [address] Terrie Manning MD [address] [place] [address] Social History Tobacco Use Types Packs/Day [...] COVID-19? No / Unsure 06/19/2020 5:36 AM INSURANCE RISK SURVEYOR documented as of this encounter Plan of Treatment Upcoming Encounters Date Type Department Care Team (Late Contact Info) Description 10/08/2024 9:45 AM CDT Office Visit [facility] ENVELOPE CUTTER - [facility] [address] [facility] [address] [place] [address] Terrie Manning MD [address] [facility] [address] [address] documented as of this encounter Visit Diagnoses Not on filedocumented in this encounter
--- OUTSIDE RECORDS SUMMARY | 2024-05-27 15:09 | XMS_ITS | Encounter Summary ---
Author Organization [facility] Address 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 [place] [address] Encounter for gynecological examination with abnormal finding (Primary Dx); Anxiety state; Dyspareunia in female Social History Tobacco Use Types Packs/Day Years [...] have Coronavirus / COVID-19? No / Unsure 09/07/2020 1:18 PM CDT documented as of this encounter Last Filed Vital Signs Vital Sign Reading Time Taken Comments Blood Pressure 106/70 09/07/2020 1:26 PM CDT Pulse - - Temperature - - Respiratory Rate - - Oxygen Saturation - - Inhaled Oxygen Concentration - - Weight 77.5 kg (170 lb 12.8 oz) 09/07/2020 1:26 PM CDT Height 178.4 cm (5' 10.25 ) 09/07/2020 1:26 PM C DT Body Mass Index 24.33 09/07/2020 1:26 PM CDT documented in this encounter Progress Notes * Terrie Baca MD - 09/07/2020 1:40 PM CDT CC: Well-Woman Exam HPI: Angela Alarcon is a 34 y.o. female who presents today for her annual well- woman exam. She complains of painful intercourse today. She does perform monthly self breast exams and has not noticed any changes or masses. Patient's last menstrual period was 10/09/2019. Periods are absent from BF. Review of Systems Constitutional: Negative for appetite change, fatigue and fever. HENT: Negative. Eyes: Negative. Respiratory: Negative for cough and shortness of breath. Cardiovascular: Negative for chest pain and leg swelling. Gastrointestinal: Negative for abdominal pain, constipation, diarrhea, nausea and vomiting. Endocrine: Negative. Negative for cold intolerance. Genitourinary: Negative for dysuria, frequency and urgency. Musculoskeletal: Positive for arthralgias. Negative for back pain and myalgias. Skin: Negative for rash. Allergic/Immunologic: Negative. Neurological: Positive for headaches. Negative for weakness and light-headedness. Hematological: Negative for adenopathy. Does not bruise/bleed easily. Psychiatric/Behavioral: Negative for sleep disturbance. The patient is nervous/anxious. OB History Para Term AB Living 4 3 1 2 1 2 SAB TAB Ectopic Multiple Live Births 1 [...] 2015 ??? HX WISDOM TEETH EXTRACTION ??? MA DELIVERY ONLY N/A 08/21/2017 SECTION performed by Terrie Baca MD at [facility] ??? MA DELIVERY ONLY N/A 04/01/2019 SECTION performed by Terrie Baca MD at [facility] ??? MA DELIVERY ONLY N/A 06/19/2020 SECTION performed by Terrie Baca MD at [facility] ??? MA COLONOSCOPY FLX DX W/COLLJ SPEC WHEN PFRMD 06/06/2013 COLONOSCOPY performed by [facility] ??? MA ESOPHAGOGASTRODUODENOSCOPY TRANSORAL DIAGNOSTIC 06/06/2013 ESOPHAGOGASTRODUODENOSCOPY performed by Xavi [facility]ino MD at [facility] ??? MA HYSTEROSCOPY,W/ENDO BX N/A 08/11/2016 HYSTEROSCOPY WITH DILATATION AND CURETTAGE SUCTION performed by Dustin Bill MD at [facility] ??? MA ORAL SURGERY Family History Problem Relation Name [...] used Substance Use Topics ??? Alcohol use: Not Currently Alcohol/week: 0.0 standard drinks Comment: Socially ??? Drug use: No Social History Substance and Sexual Activity Sexual Activity Yes ??? Partners: Male ??? control/protection: None Current Outpatient Medications Medication Sig Dispense Refill ??? sertraline (ZOLOFT) 50 mg tablet Take 1 Tablet (50 mg) by mouth daily. 90 Tablet 3 ??? conjugated estrogens (Premarin) 0.625 mg/gram vaginal cream Insert 0.5 Grams vaginally twice weekly. At bedtime 30 Gram 1 ??? PNV Comb No.59/Iron/FA/DHA (-DHA ORAL) Take by mouth. ??? [DISCONTINUED] sertraline (ZOLOFT) 50 mg tablet Take 1 Tablet (50 mg) by mouth daily. 90 Tablet1 No current facility-administered medications for this visit. No Known Allergies Screening: No results found for this or any previous visit. Physical Exam: Vitals: 09/07/20 1326 BP: 106/70 BP Location: Right arm Patient Position (BP): Sitting BP Cuff Size: Adult Weight: 77.5 kg (170 lb 12.8 oz) Height: 5' 10.25 (1.784 m) Physical Exam Constitutional: General: She is not in acute distress. Appearance: Normal appearance. Genitourinary: Vulva, urethra, bladder, cervix, uterus, right adnexa and left adnexa normal. No vaginal discharge. HENT: Head: Normocephalic and atraumatic. Eyes: Extraocular Movements: Extraocular movements intact. Pupils: Pupils are equal, round, and reactive to light. Cardiovascular: Rate and Rhythm: Normal rate and regular rhythm. Heart sounds: Normal heart sounds. No murmur. Pulmonary: Effort: Pulmonary effort is normal. Breath sounds: Normal breath sounds. No wheezing. Chest: Breasts: Right: Normal. No mass or skin change. Left: Normal. No mass or skin change. Abdominal: General: There is no distension. Palpations: [...] Affect: Mood normal. Behavior: Behavior normal. Assessment/Plan: 34 y.o. female here today for a well-woman exam. 1. Encounter for gynecological examination with abnormal finding - CERV/VAG CYTO AGE BASED SCREEN PAP; Future 2. Anxiety state 3. Dyspareunia in female 1. Pap obtained today. Will follow-up with the results with the patient as they become available. 2. Health Maintenance - Encouraged self breast exams. 3. Contraception - vasectomy. 4. Anxiety-Zoloft refilled. 5. Dyspareunia-Due to lack of estrogen with BF. Premarin vag cream Erx. 6. RTC 1yr for WWE or sooner if she has any questions, concerns, complaints. 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 [facility] [address] [place] [address] documented as of this encounter Procedures Procedure Name Priority Date/Time Associated Diagnosis Comments CERV/VAG CYTO AGE BASED SCREEN PAP Routine 09/07/2020 2:29 PM CDT Encounter for gynecological examination with abnormal finding documented in this encounter Results * CERV/VAG CYTO AGE BASED SCREEN PAP (09/07/2020 2:29 PM CDT) COMMENT (PAP): SEE COMMENT 1:31 PM CDT [facility] Comment: This order for age-based cervical cancer and STI screening follows ACOG guidelines(PB 168, 140, MUS705). See individual assays for performing site location. CLINICAL INFORMATION Information not provided 09/10/2020 1:31 PM CDT [facility] LAST MENSTRUAL PERIOD INFORMATION NOT PROVIDED 09/10/2020 1:31 PM CDT [facility] PREV PAP: INFORMATION NOT PROVIDED 09/10/2020 1:31 PM CDT [facility] PREV BX: INFORMATION NOT PROVIDED 09/10/2020 1:31 PM CDT [facility] SOURCE Endocervix 09/10/2020 1:31 PM CDT [facility] ADEQUACY: SEE COMMENT 09/10/2020 1:31 PM CDT [facility] Comment: Satisfactory for evaluation. Endocervical/transformation zone component present. Age and/or menstrual status not provided PAP INTERP Negative for intraepithelial lesion or malignancy. 09/10/2020 1:31 PM CDT [facility] COMMENT This Pap test has been evaluated with computer assisted technology. 09/10/2020 1:31 PM CDT [facility] MGMT SPECIALIST: SEE COMMENT 2020 1:31 PM CDT [facility] Comment: BEF, CT(ASCP) CT screening location: [place] [address] [place] [address] EXPLANATORY NOTE SEE COMMENT 1:31 PM CDT [facility] Comment: EXPLANATORY NOTE: The Pap is a [...] information. HPV E6/E7 Not Detected Not Detected 09/10/2020 1:31 PM CDT [facility] Comment: Methodology: Produce Shipper-Mediated Amplification This assay detects E6/E7 viral messenger RNA (mRNA) from 14 high-risk HPV types (16,18,31,33,35,39,45,51,52,56,58,59,66,68). The analytical performance characteristics of this assay have been determined by [employer]. The modifications have not been cleared or approved by the FDA. This assay has been validated pursuant to the CLIA regulations and is used for clinical purposes. For additional information, please refer to http://education.Neighbor.ly/faq/MTY577r2 (This link if provided for information/ educational purposes only.) Genital SWAB OF ENDOCERVIX / Unknown Collection / Unknown 09/07/2020 2:29 PM CDT 09/07/2020 7:03 PM CDT Narrative [facility] - 09/10/2020 1:31 PM CDT Performing Organization Information: ?Site ID: [id number] ?[facility] ?Address: [address] [place] [address] ?Director: Vitayl Hardy D.O., MPH ?Site ID: [id number] ?Name: [facility] ?Address: [facility] [place] [address] ?Director: Sarah Jay Terrie Baca MD PATHOLOGY/CYTOLOGY ORDERABLES [facility] [phone] documented in this encounter Visit Diagnoses Diagnosis Encounter for gynecological examination with abnormal finding- Primary Routine gynecological examination Anxiety state Anxiety state, unspecified Dyspareunia in female documented in this encounter
--- OUTSIDE RECORDS SUMMARY | 2024-05-27 15:09 | XMS_ITS | Encounter Summary ---
Author Organization [facility] Address [address] [place] [address] Care Team Providers Care Agent Broker Name Role Phone Unavailable Primary Care Provider Unavailabl e Reason for Visit * Auth/Cert Specialty Diagnoses / Procedures Referred By Contac t Referred To Contact Obstetrics Diagnoses EDC: 07/15/20 Repeat Classical Procedures SECTION [facility] Mother Baby 5c [address] [place] [address] Referral ID Status Reason Start Date Expiration Date Visits Re quested Visits Authorized [id number] 1 1 Encounter Details Date Type Department Care Team (Latest Contact Info) Description 06/19/2020 5:34 AM ELECTRONIC WARFARE OFFICER - 06/21/2020 12:40 PM ELECTRONIC WARFARE OFFICER Hospital Encounter [facility] Mother/Baby 5C [address] [place] [address] Terrie Baca MD [address] [facility] [address] [place] [address] S/P section Discharge Disposition: Home or Self Care Social [...] COVID-19? No / Unsure 06/19/2020 5:36 AM ELECTRONIC WARFARE OFFICER documented as of this encounter Last Filed Vital Signs Vital Sign Reading Time Taken Comments Blood Pressure 124/68 06/21/2020 7:26 AM ELECTRONIC WARFARE OFFICER Pulse 85 06/21/2020 12:42 AM ELECTRONIC WARFARE OFFICER Temperature 36.9 ??C (98.5 ??F) 06/21/2020 7:26 AM CS T Respiratory Rate 18 06/21/2020 7:26 AM ELECTRONIC WARFARE OFFICER Oxygen Saturation 99% 06/19/2020 10:14 AM ELECTRONIC WARFARE OFFICER Inhaled Oxygen Concentration - - Weight 87.1 kg (192 lb) 06/19/2020 6:19 AM ELECTRONIC WARFARE OFFICER Height 177.8 cm (5' 10 ) 06/19/2020 6:19 AM ELECTRONIC WARFARE OFFICER Body Mass Index 27.55 06/19/2020 6:19 AM ELECTRONIC WARFARE OFFICER documented in this encounter Discharge Summaries * Terrie Baca MD - 06/21/2020 9:30 AM CST Physician Discharge Summary - Delivery Patient: Angela Alarcon / 34 y.o. / female : 1985 Admit date: 06/19/2020 Discharge date: 06/21/2020 Attending Physician0 : Terrie Baca MD [place] Data: Information for the patient's : Blanca Alarcon [[id number]] Information for the patient's : Blanca Alarcon [[id number]] tab Discharge Diagnosis 1. non-labor Hospital Procedures 1. none. Pertinent History & Physical See H&P. Hospital Course Uncomplicated. Discharge Labs HEMOGLOBIN Date Value Ref Range Status 06/19/2020 10.2 (L) 11.8 - 14.8 g/dL Final PLATELETS Date Value Ref Range Status 06/19/2020 197 140 - 350 K/uL Final Discharge Condition:qb2018 stable. Disposition She is discharged to home. [...] Your Medications These medications were sent to [address] [address] Hours: Monday-Monday: 8 a.m. - 8 p.m., Monday: 9 a.m. - 5 p.m., Monday: 10 a.m. - 4 p.m. ?? ibuprofen 600 mg tablet ?? oxyCODONE 5 mg tablet Terrie Baca MD TRONIC WARFARE OFFICER documented in this encounter Discharge Instructions * Discharge Instructions* Judie Hooker RN - 06/21/2020 9:33 AM ELECTRONIC WARFARE OFFICER Images from the original note were not [...] feeding ?? For advice call: information line [phone] IF BOTTLE FEEDING ?? Avoid breast stimulation, [...] can help. Sometimes medicine can also help [facility] offers an Intensive Outpatient Program for women with mood disorder and depression. This supportive environment gives mothers a chance to talk with other mothers who face similar challenges. Families and partners will also learn new ways to support you. For more information, please contact our Intake Office at [phone]. After hours: [phone]. NEED SUPPORT AFTER YOU ARE HOME? [facility] now offers outpatient consult appointments. An International Board-Certified Orthopaedic Doctor is available to help if you need support after you and your arehome. Appointments are approximately one hour long and take place in the Department of Ser vices (second floor of [facility] near the NICU) Many insurance plans offer coverage for this service. Please call [phone], our Information line, to schedule your appointment or to get support by phone. Same or next day appointments are often available. Where can you learn more? Go to [email or web address] Enter G069 in the search box to learn more about Your [place] at Home: Care Instructions. Enter Y708 in the search box to learn more about Learning About Rescue Breathing and CPR for Babies Under 1 Year. / Resources During Covid-19 Phone Consults & Visits Call [phone] to ask questions about . If needed, our team can schedule a video visit with you. Virtual with Confidence On Wednesdays, 1-2 pm., join us for a group meeting via videoconference facilitated by a professional. Ask questions, get advice! To register: Visit [employer] Information/G[employer]hbam[employer] Spotted and select [facility] / View Classes / Support Once [...] leave a message for the nurse at [phone]. Please note these messages are picked up as time allows and are not intended to replace advise from your physician.If you need is urgent, please contact your or your baby's physician. TRONIC WARFARE OFFICER documented in this encounter Medications at Time [...] and will be transported via private vehicle. TRONIC WARFARE OFFICER * Terrie Baca MD - 06/21/2020 9:27 [...] to go home today. Terrie Baca MD TRONIC WARFARE OFFICER * Odalis Bender MD - 06/21/2020 7:37 AM CST OB Progress Note Subjective: Pain well controlled. Tolerating regular diet and ambulation. Voiding without complaints. Passing flatus. Minimal lochia. Denies chest pain, shortness of breath, fevers, chills, or calf pain. No complaints this morning. Objective: Vitals: 06/20/20203006/21/20 0042 06/21/20 0353 06/21/20 0726 BP: 108/76 [...] pain meds 3. Anxiety: Gary Bender MD Straight Truck Driver PGY-1 Pager: [phone] TRONIC WARFARE OFFICER * Jae Lugo DO - 06/20/2020 7:15 AM CST OB Progress [...] Zoloft Octaviano Way DO PGY1 Dept. of Straight Truck Driver Pager: [phone] Seen and examined. Agree with plan. Dr. Lugo TRONIC WARFARE OFFICER * Terrie Baca MD - 06/19/2020 7:31 [...] be present at delivery. Terrie Baca MD TRONIC WARFARE OFFICER * Maira Franz RN - 06/18/2020 11:28 [...] Currently on Zoloft Opportunity provided for questions. Grief Counselor required: N/A Maira Franz RN TRONIC WARFARE OFFICER documented in this encounter H&P Notes * [...] No observed anomalies 1 SAB 08/2016 SAB ROUTE DRIVER Hx: remote history of abnormal Pap smears, [...] 2015 ??? HX WISDOM TEETH EXTRACTION ??? AL DELIVERY ONLY N/A 08/21/2017 SECTION performed by Terrie Baca MD at [facility] ??? AL DELIVERY ONLY N/A 04/01/2019 SECTION performed by Terrie Baca MD at [facility] ??? AL COLONOSCOPY FLX DX W/COLLJ SPEC WHEN PFRMD 06/06/2013 COLONOSCOPY performed by Xavi Aquino MD at [facility] ??? AL ESOPHAGOGASTRODUODENOSCOPY TRANSORAL DIAGNOSTIC 06/06/2013 ESOPHAGOGASTRODUODENOSCOPY performed by Xavi Aquino MD at [facility] ??? AL HYSTEROSCOPY,W/ENDO BX N/A 08/11/2016 HYSTEROSCOPY WITH DILATATION AND CURETTAGE SUCTION performed by Dustin Bill MD at [facility] ??? AL ORAL SURGERY FHx: Negative for genetic tendencies, [...] FHR: 150, mod variability, +accels, no decels Lehr: quiet Assessment/Plan: 34 y.o. @ 36w2d admitted [...] pre-op antibiotics for prophylaxis 6. Anxiety: Continue CASE MANAGEMENT ASSOCIATE Zoloft, NICU for special delivery mail carrier discussed with Dr. Nigel Jones MD SHEET IRONWORKER PGY-3 Pager: TRONIC WARFARE OFFICER documented in this encounter OR Notes * Anesthesiology - Georgie Hebert CRNA - 06/20/2020 3:33 AM CST Discussed post-op pain management plan with attending anesthesiologist. Epidural pulled in accordance with prescribed plan. Epidural pulled due to dressing failure (clamp disconnected). Tip was intact. Site is clean dry and without erythema. Georgie Hebert CRNA 06/20/2020 3:33 AM TRONIC WARFARE OFFICER * Anesthesiology - Georgie Hebert CRNA - 06/20/2020 3:33 AM CST OB [...] vomiting Narrative No apparent Anesthesia related complications Georgie Hebert CRNA 06/20/2020 6:08 AM TRONIC WARFARE OFFICER * Operative Report - Terrie Baca MD - 06/19/2020 8:34 AM CST Section Operative Note Date of Procedure: 06/19/2020 Procedure: repeat low transverse section via Pfannenstiel incision Pre-operative Diagnosis: 1. 34 y.o. with IUP @ 36w2d 2. History of T incision Post-operative Diagnosis: same Surgeon: Terrie Baca MD Outbound Sales Advisor: Frederick Jovel DO Anesthesia: spinal QBL: 660 mL Urine Output: clear urine in Abad bag after procedure Specimen(s): cord blood for ABO typing Antibiotics: 2g Ancef Operative Complications: none Indications: Please see pre-op diagnosis above, H&P and most recent progress notes for further details. Findings: Gestational Age: 36w2d Date of Delivery: 06/19/2020 Time of Delivery: 7:59 AM [place] Sex: Female Delivery Type: , Low Transverse [...] was exten ded superiorly and inferiorly digitally. was delivered as noted in the findings [...] to recovery in stable condition. Frederick Jovel, DO TRONIC WARFARE OFFICER documented in this encounter Miscellaneous Notes * Care Plan - Odalis Araiza RN - 06/21/2020 5:15 AM CST VSS. Fundus firm, Lochia WNL. Incision C/D/I. Independent in ADLs. Voiding without difficulty. Painwell controlled with PO Motrin, Tylenol, and Shauna. Breast feeding well. TRONIC WARFARE OFFICER * Care Plan - Betzy Tom RN - 06/20/2020 5:23 PM CST Pain is controlled with PO pain medications. Patient is ambulating independently and voiding without difficulty. VSS. successfully. Applying ice to incision. Progressing towards discharge goals. TRONIC WARFARE OFFICER * Care Plan - Judie Hooker RN - 06/20/2020 2:20 PM CST Pt's fundus remains firm and bleeding is light. Pain is well controlled with PO motrin, tylenol, and shauna. VSS. Progressing towards discharge. TRONIC WARFARE OFFICER * Care Plan - Hayley Vela RN - 06/20/2020 6:27 AM CST VSS. Pt up and voiding without difficulty. Epidural dc'd after becoming disconnected. Pt's pain well controlled with po pain meds. Resting comfortably throughout the night. TRONIC WARFARE OFFICER * Treatment Plan - Lillian No RN - 06/19/2020 5:39 AM CST Images from the original note were not included. Pre-operative Protocol [facility] ORDERS ARE ENTERED ???PER PROTOCOL?? Follow this protocol for all section patients (scheduled and unscheduled). Enter the protocol in the patient???s electronic health record using [employer] System[employer]: .cesareanbirthprotocol Nursing Orders: o Initiate the Pathway [...] 01/2018 Adult Influenza and/or Pneumococcal Vaccine Protocol [facility] ORDERS ARE ENTERED ???PER PROTOCOL?? Enter the [...] Nursing Leadership, Pharmacy & Therapeutics CommitteeDate: 01/2018 TRONIC WARFARE OFFICER documented in this encounter Plan of Treatment Upcoming Encounters Date Type Department Care Team (Late st Contact Info) Description 10/08/2024 9:45 AM CDT Office Visit [facility] SHEET IRONWORKER - [facility] [address] [address] Terrie Baca MD [address] [facility] [address] [place] [address] documented as of this encounter Procedures Procedure Name Priority Date/Time Associated Diagnosis Comments SECTION 06/19/2020 7:30 AM ELECTRONIC WARFARE OFFICER EDC: 07/15/20 * Repeat Classical CBC WITH DIFFERENTIAL Routine 06/19/2020 6:03 AM ELECTRONIC WARFARE OFFICER TYPE AND SCREEN Routine 06/19/2020 6:03 AM ELECTRONIC WARFARE OFFICER documented in this encounter Results * (ABNORMAL) CBC WITH DIFFERENTIAL (06/19/2020 6:03 AM ELECTRONIC WARFARE OFFICER) WBC 5.8 4.0 - 9.8 K/uL 06/19/2020 6:43 AM ELECTRONIC WARFARE OFFICER [employer] [facility] RBC 3.31(L) 3.90 - 4.90 M/uL 06/19/2020 6:43 AM ELECTRONIC WARFARE OFFICER [employer] [facility] HEMOGLOBIN 10.2(L) 11.8 - 14.8 g/dL 06/19/2020 6:43 AM ELECTRONIC WARFARE OFFICER [employer] [facility] HEMATOCRIT 32.4(L) 35.5 - 44.0 % 06/19/2020 6:43 AM ELECTRONIC WARFARE OFFICER [employer] [facility] MCV 97.9 82.0 - 99.0 fL 06/19/2020 6:43 AM ELECTRONIC WARFARE OFFICER [employer] [facility] MCH 30.8 27.2 - 32.6 pg 06/19/2020 6:43 AM ELECTRONIC WARFARE OFFICER [employer] [facility] MCHC 31.5 31.5 - 35.5 g/dL 06/19/2020 6:43 AM ELECTRONIC WARFARE OFFICER [employer] [facility] RDW 13.5 11.5 - 14.5 % 06/19/2020 6:43 AM ELECTRONIC WARFARE OFFICER [employer] [facility] RDW-STDEV 48.7 37.1 - 48.7 fL 06/19/2020 6:43 AM ELECTRONIC WARFARE OFFICER [employer] [facility] PLATELETS 197 140 - 350 K/uL 06/19/2020 6:43 AM ELECTRONIC WARFARE OFFICER [employer] [facility] MPV 9.6 9.3 - 12.4 fL 06/19/2020 6:43 AM ELECTRONIC WARFARE OFFICER [employer] [facility] NEUTROPHILS 65 % 06/19/2020 6:43 AM ELECTRONIC WARFARE OFFICER [employer] [facility] LYMPHOCYTES 23 % 06/19/2020 6:43 AM ELECTRONIC WARFARE OFFICER [employer] [facility] MONOCYTES 10 % 06/19/2020 6:43 AM ELECTRONIC WARFARE OFFICER [employer] [facility] EOSINOPHILS 1 % 06/19/2020 6:43 AM ELECTRONIC WARFARE OFFICER [employer] [facility] BASOPHILS 0 % 06/19/2020 6:43 AM ELECTRONIC WARFARE OFFICER [employer] [facility] IMMATURE GRANULOCYTES 1 % 06/19/2020 6:43 AM ELECTRONIC WARFARE OFFICER [employer] [facility] Comment:IG (Immature Granulo cyte) count includes Metamyelocytes, Myelocytes, and Promyelocytes NEUTROPHIL ABSOLUTE 3.79 1.90 - 7.00 K/uL 06/19/2020 6:43 AM ELECTRONIC WARFARE OFFICER [employer] LABORATORY SERVICES - . [facility] LYMPHOCYTE ABSOLUTE 1.36 0.70 - 4.50 K/uL 06/19/2020 6:43 AM [facility] - . [facility] MONOCYTE ABSOLUTE 0.57 0.10 - 1.30 K/uL 06/19/2020 6:43 AM [facility] [employer] [facility] - [facility] EOSINOPHIL ABSOLUTE 0.04 0.00 - 0.70 K/uL 06/19/2020 6:43 AM ELECTRONIC WARFARE OFFICER [employer] [facility] - [facility] BASOPHILS ABSOLUTE 0.01 0.00 - 0.20 K/uL 06/19/2020 6:43 AM ELECTRONIC WARFARE OFFICER [employer] LABORATORY SERVICES - . [facility] IMMATURE GRANULOCYTES ABSOLUTE 0.03 0.00 - 0.03 K/uL 06/19/2020 6:43 AM ELECTRONIC WARFARE OFFICER [employer] LABORATORY SERVICES - [facility] Blood Venipuncture / Unknown 06/19/2020 6:03 AM ELECTRONIC WARFARE OFFICER 06/19/2020 6:21 AM ELECTRONIC WARFARE OFFICER Terrie Baca MD HEMATOLOGY ORDERAB LES [facility] [employer] SERVICES [facility]# [id number] [address] [place] [address] * TYPE AND SCREEN (06/19/2020 6:03 AM ELECTRONIC WARFARE OFFICER) ABO GROUP O 06/19/2020 7:58 AM ELECTRONIC WARFARE OFFICER [employer] LABORATORY SERVICES -- [facility] RH (D) TYPE Positive 06/19/2020 7:58 AM ELECTRONIC WARFARE OFFICER [employer] LABORATORY SERVICES -- [facility] ANTIBODY SCREEN Negative 06/19/2020 7:58 AM ELECTRONIC WARFARE OFFICER [employer] LABORATORY SERVICES -- [facility] Blood Venipuncture / Unknown 06/19/2020 6:03 AM ELECTRONIC WARFARE OFFICER 06/19/2020 6:21 AM ELECTRONIC WARFARE OFFICER Terrie Baca MD BLOOD BANK ORDERAB LES [facility] LABORATORY SERVICES -- [facility]# [id number] [address] [place] [address] documented in this encounter Visit Diagnoses Diagnosis S/P section- Primary Other postprocedural status S/P section Other postprocedural status documented in this encounter Administered Medications Inactive Administered Medications - up to 3 most recent administrations Medication Order MAR Action Action Date Dose Rate Site acetaminophen (TYLENOL) tablet 650 mg 650 mg, Oral, EVERY 6 HOURS, First dose on Mon06/19/20 at 1500, Until Discontinued, Routine, Post-op - Floor Given 06/21/2020 12:23 PM ELECTRONIC WARFARE OFFICER 650 mg Given 06/21/2020 6:33 AM ELECTRONIC WARFARE OFFICER 650 mg Given 06/21/2020 12:42 AM ELECTRONIC WARFARE OFFICER 650 mg carboprost tromethamine (HEMABATE) 250 mcg/mL injection 1 mL 1 mL (250 mcg), IM, EVERY 15 MINUTES PRN, 8 doses, Starting on Mon06/19/20 at 0536, Until Mon06/21/20 at 1443, Other (See Comment), for excessive bleeding in the immediate period as needed after consultation with resident or attending physician - Maximum of 8 doses, Routine ceFAZolin (ANCEF) 2,000 mg in dextrose (iso-osmotic) 100 mL IVPB (PREMIX) 2,000 mg, IV, ONE TIME ONLY, 1 dose, On Mon06/19/20 at 0630, Routine, Antibiotic Indication: Surgical prophylaxis New Bag 06/19/2020 7:20 AM ELECTRONIC WARFARE OFFICER 2,000 mg 200 mL/hr docusate sodium (COLACE) capsule 100 mg 100 mg, Oral, TWO TIMES DAILY, First dose on Mon06/19/20 at 1200, Until Discontinued, Routine, Post-op - Floor Given 06/21/2020 8:44 AM ELECTRONIC WARFARE OFFICER 100 mg Given 06/20/2020 8:30 PM ELECTRONIC WARFARE OFFICER 100 mg Given 06/20/2020 8:17 AM ELECTRONIC WARFARE OFFICER 100 mg ferrous sulfate tablet 325 mg 325 mg, Oral, DAILY, First dose on Mon06/19/20 at 1200, Until Discontinued, Routine, Post-op - Floor Given 06/21/2020 8:44 AM ELECTRONIC WARFARE OFFICER 325 mg Given 06/20/2020 8:18 AM ELECTRONIC WARFARE OFFICER 325 mg ibuprofen (MOTRIN) tablet 600 mg 600 mg, Oral, EVERY 6 HOURS, First dose on Mon06/19/20 at 1500, Until Discontinued, Routine, Post-op - Floor Given 06/21/2020 6:33 AM ELECTRONIC WARFARE OFFICER 600 mg Given 06/21/2020 12:42 AM ELECTRONIC WARFARE OFFICER 600 mg Given 06/20/2020 6:36 PM ELECTRONIC WARFARE OFFICER 600 mg lactated ringers infusion IV, at 125 mL/hr, PRE-PROCEDURE CONTINUOUS, Starting on Mon06/19/20 at 0545, Until Mon06/19/20 at 1100, Routine, Pre-op Continue from Pre-Op 06/19/2020 6:54 AM ELECTRONIC WARFARE OFFICER New Bag 06/19/2020 6:26 AM ELECTRONIC WARFARE OFFICER 125 mL/hr lactated ringers infusion IV, at 125 mL/hr, CONTINUOUS, Starting on Mon06/19/20 at 2000, Until Mon06/21/20 at 1443, Routine, Post-op - Floor New Bag 06/19/2020 7:16 PM ELECTRONIC WARFARE OFFICER 125 mL /hr meperidine 5 mg/ml epidural 2 mL/hr, Epidural, CONTINUOUS, Starting on Mon06/19/20 at 0900, Until 06/20/20 at 0335, Stat New Bag 06/19/2020 9:54 AM ELECTRONIC WARFARE OFFICER 2 mL/hr 2 mL/hr methylergonovine maleate (METHERGINE) 0.2 mg/mL (1 [...] admin instructions), Routine Given 06/21/2020 12:23 PM ELECTRONIC WARFARE OFFICER 5 mg Given 06/21/2020 8:44 AM ELECTRONIC WARFARE OFFICER 5 mg Given 06/21/2020 4:47 AM ELECTRONIC WARFARE OFFICER 5 mg oxyCODONE (ROXICODONE) tablet 5 mg 5 mg, Oral, EVERY 4 HOURS PRN, Starting on Mon06/20/20 at 0348, Until Mon06/21/20 at 1443, Pain (See admin instructions), Routine oxytocin in sodium chloride 0.9 % (PITOCIN) 20 units in 1,000 mL infusion IV, at 999 mL/hr, CONTINUOUS PRN, Starting on Mon06/19/20 at 0536, Until Mon06/21/20 at 1443, Other (See Comment), excessive bleeding in the immediate period, Routine oxytocin in sodium chloride 0.9 % (PITOCIN) 20 units in 1,000 mL infusion IV, at 125 mL/hr, CONTINUOUS, Starting on Mon06/19/20 at 1130, Until Mon06/19/20 at 1929, Routine, Post-op - Floor Rate Verify 06/19/2020 7:14 PM ELECTRONIC WARFARE OFFICER 20 mL/hr Rate Verify 06/19/2020 11:35 AM ELECTRONIC WARFARE OFFICER 125 mL/hr New Bag 06/19/2020 11:33 AM ELECTRONIC WARFARE OFFICER 125 mL/hr 125 mL/hr vit-iron fumarate-fa (WILLIAM ) 28 mg iron- 800 mcg per tablet 1 Tablet 1 Tablet, Oral, DAILY AT BEDTIME, First dose (after last modification) on Mon06/20/20 at 2100, Until Discontinued, Routine, Post-op - Floor Given 06/20/2020 8:30 PM ELECTRONIC WARFARE OFFICER 1 Tablet sennosides-docusate sodium (SENNA-S) 8.6-50 mg per tablet 1 Tablet 1 Tablet, Oral, DAILY AT BEDTIME, First dose on Mon06/19/20 at 2100, Until Discontinued, Routine, Post-op - Floor Given 06/20/2020 8:31 PM ELECTRONIC WARFARE OFFICER 1 Tab let Given 06/19/2020 9:16 PM ELECTRONIC WARFARE OFFICER 1 Tablet sertraline (ZOLOFT) tablet 50 mg 50 mg, Oral, DAILY, First dose on Mon06/19/20 at 2145, Until Discontinued, Routine Given 06/20/2020 9:05 PM ELECTRONIC WARFARE OFFICER 50 mg Given 06/19/2020 10:13 PM ELECTRONIC WARFARE OFFICER 50 mg simethicone chewable tablet 80 mg 80 mg, Oral, EVERY 6 HOURS PRN, Starting on Mon06/19/20 at 1119, Until 06/21/20 at 1443, Gas, Routine, Post-op - Floor Given 06/20/2020 1:37 AM ELECTRONIC WARFARE OFFICER 80 mg Given 06/19/2020 6:05 PM ELECTRONIC WARFARE OFFICER 80 mg tranexamic acid (CYKLOKAPRON) 1,000 mg in sodium chloride (iso-osmotic) 100 mL IVPB 1,000 mg, IV, ONE TIME PRN, 1 dose, Starting on Mon06/19/20 at 0536, Until Mon06/21/20 at 1443, Other (See Comment), Physician consultation required before administration for appropriate medication selection, Routine documented in this encounter Active and Recently Administered Medications Times are shown in ELECTRONIC WARFARE OFFICER. Scheduled Medication Order 06/19/2020 06/20/2020 06/21/2020 acetaminophen (TYLENOL) tablet 650 mg 650 mg, Oral, EVERY 6 HOURS, First dose on Mon06/19/20 at 1500, Until Discontinued, Routine, Post-op - Floor 1806 (Given - Provider: Diamond Willis RN) 0137 (Given - Provider: Hayley Vela, ATTILA)0703 (Given - Provider: Hayley Vela, ATTILA)1250 (Given - Provider: Judie Hooker, ATTILA)1837 (Given [...] 0720 (New Bag - Provider: Terrie Rey, ATTILA)0750 (Stopped - Provider: Terrie Rey, ATTILA) docusate sodium (COLACE) capsule 100 mg 100 mg, Oral, TWO TIMES DAILY, First dose on Mon06/19/20 at 1200, Until Discontinued, Routine, Post-op - Floor 1200 (Not Given - Provider: Diamodn Schurwan, RN - Reason: Patient condition)2116 (Given - Provider: Hayley Vela RN) 0817 (Given - Provider: Judie Hooker, ATTILA)2030 (Given - Provider: Odalis Araiza, ATTILA) 0844 [...] Diamond Willis RN) 0137 (Given - Provider: Hayely Vela RN)0703 (Given - Provider: Hayley Vela RN)1250 (Given - Provider: Judie Hooker RN)1836 (Given - Provider: Betzy Tom, ATTILA) 0042 (Given - Provider: Odalis Araiza, ATTILA)0633 (Given - Provider: Odalis Araiza RN)1200 (Due) ketorolac (TORADOL) injection 30 mg (COMPLETED) 30 mg, IV, ONE TIME ONLY, 1 dose, On Mon06/19/20 at 0715, Routine, (OB POST-OP PAIN SERVICE) 0823 (Given - Provider: Georgie Hebert CRNA) lanolin (LANSINOH) 100 % topical ointment Topical, SEE ADMIN INSTRUCTIONS, Starting on Mon06/19/20 at 1119, Until Mon06/21/20 at 1443, Routine, Post-op - Floor naloxone [...] 2100, Until Discontinued, Routine, Post-op - Floor 2029 (Given - Provider: Odalis Araiza, ATTILA) sennosides-docusate sodium (SENNA-S) 8.6-50 mg per tablet 1 Tablet 1 Tablet, Oral, DAILY AT BEDTIME, First dose on Mon06/19/20 at 2100, Until Discontinued, Routine, Post-op - Floor 2115 (Given - Provider: Hayley Vela, ATTILA) 2030 (Given - Provider: Odalis Araiza, ATTILA) sertraline (ZOLOFT) tablet 50 mg 50 mg, Oral, DAILY, First dose on Mon06/19/20 at 2145, Until Discontinued, Routine 2212 (Given - Provider: Hayley Vela RN) 2104 (Given - Provider: Odalis Araiza, ATTILA) Continuous Medication Order 06/19/2020 06/20/2020 06/21/2020 lactated [...] 06/21/20 at 1443, Routine, Post-op - Floor 1916 (New Bag - Provider: Diamond Willis RN)2300 (Stopped - Provider: Hayley Vela RN) meperidine 5 mg/ml epidural (CANCELED) 2 mL/hr, Epidural, CONTINUOUS, Starting on Mon06/19/20 at 0900, Until 06/20/20 at 0335, Stat 0954 (New Bag - Provider: Georgie Hebert CRNA) 0306 (Stopped - Provider: Hayley Vela, ATTILA) 0954 (Due: Stopped - Provider: Georgie Hebert CRNA) oxytocin in sodium chloride 0.9 % (PITOCIN) 20 units in 1,000 mL infusion IV, at 125 mL/hr, CONTINUOUS, Starting on Mon06/19/20 at 1130, Until Mon06/19/20 at 1929, Routine, Post-op - Floor 1122 (New Bag - Provider: Diamond Willis RN)1133 (New Bag - Provider: Diamond Willis RN)1135 (Rate Verify - Provider: Diamond Willis RN)191 (Stopped - Provider: Hayley Vela RN)1914 (Rate Verify - Provider: Diamond Willis RN) phenylephrine (RAMANA-SYNEPHRINE) 25 mg/250 mL 0.9% sodium chloride infusion (INTRA-OP USE ONLY) (CANCELED) 0.5 mcg/kg/min ? 87.1 kg (26.13 mL/hr, rounded to 26.1 mL/hr), IV, INTRA-PROCEDURE CONTINUOUS, Starting on Mon06/19/20 at 0715, Until Mon06/19/20 at 1114 0738 (New Bag - Provider: Georgei Hebert CRNA)0808 (Rate Change - Provider: Georgie [...] Mon06/19/20 at 1119, Until 06/21/20 at 1443, Hemorrhoids, Routine, Post-op - Floor magnesium hydroxide (MILK OF MAGNESIA) oral suspension 30 mL 30 mL, Oral, NIGHTLY PRN, Starting on Mon06/19/20 at 1119, Until 06/21/20 at 1443, Constipation, Routine, Post-op - Floor [...] instructions), Routine 0404 (Given - Provider: Hayley Vela, ATTILA)0818 (Given - Provider: Judie Hooker, RN)1211 (Given - Provider: Judie Hooker, RN)1555 (Given - Provider: Betzy Tom RN)2040 (Given - Provider: Odalis Araiza, ATTILA) 0041 (Given - Provider: Odalis Araiza, RN)0447 (Given - Provider: Odalis Araiza, RN)0844 (Given - Provider: Judie Hooker, ATTILA)1223 (Given - Provider: Judie Hooker RN) oxyCODONE (ROXICODONE) tablet 5 mg 5 mg, [...] RN) 0137 (Given - Provider: Hayley Vela, ATTILA) tranexamic acid (CYKLOKAPRON) 1,000 mg in sodium chloride (iso-osmotic) 100 mL IVPB 1,000 mg, IV, ONE TIME PRN, 1 dose, Starting on 06/19/20 at 0536, Until 06/21/20 at 1443, Other (See Comment), Physician consultation required before administration for appropriate medication selection, Routine witch Audrey (TUCKS) 50 % topical pads 1 Each 1 Each, Topical, DAILY PRN, Starting on Mon06/19/20 at 1119, Until 06/21/20 at 1443, Discomfort, Routine, Post-op - Floor documented in this encounter
--- OUTSIDE RECORDS SUMMARY | 2024-05-27 15:09 | XMS_ITS | Encounter Summary ---
Author Organization [facility] Address [address] [place] [address] Care Team Providers Care Administrative Personal Assistant Name Role Phone Unavailable Primary Care Provider Unavailabl e Encounter Details Date Type Department Care Team (Late st Contact Info) Description 07/02/2023 External Device Data STL ABSTRACTION Provider, Abstract [...] Description 10/08/2024 9:45 AM CDT Office Visit [facility] RESIDENTIAL LIFE DIRECTOR - Medical [facility] [address] [facility] [address] [place] [address] Terrie Manning MD [address] [facility] [address] [place] [address] documented as of this encounter Visit Diagnoses Not on filedocumented in this encounter
--- OUTSIDE RECORDS SUMMARY | 2024-05-27 15:09 | XMS_ITS | Encounter Summary ---
Author Organization [facility] Address [address] [place] [address] Care Team Providers Care Plasma Center Nurse Name Role Phone Unavailable Primary Care Provider Unavailabl e Reason for Visit * Reason Comments Medication Refill Encounter Details Date Type Department Care Team ([facility] Contact Info) Description 01/12/2022 Refill [facility] CORN CUTTER OPERATOR - [address] [address] Terrie Manning MD [address] [address] Social History Tobacco Use Types [...] Upcoming Encounters Date Type Department Care Team ([facility] Contact Info) Description 10/08/2024 9:45 AM CDT Office Visit [facility] CORN CUTTER OPERATOR - [address] [address] Terrie Manning MD [address] [place] [address] [address] [place] [address] documented as of this encounter Visit Diagnoses Not on filedocumented in this encounter
--- OUTSIDE RECORDS SUMMARY | 2024-05-27 15:09 | XMS_ITS | Encounter Summary ---
Author Organization [facility] Address [address] [place] [address] Care Team Providers Care Movement Education Specialist Name Role Phone Terrie Manning MD Primary Care Provider +1- [phone] Encounter Details Date Type Department Care Team (Late st Contact Info) Description 04/22/2020 Orders Only [facility] HOTEL OR MOTEL RECEPTIONIST - Medical [address] [address] Terrie Manning MD [address] [place] [address] Encounter for screening of mother (Primary Dx); with 28 completed weeks gestation Social History Tobacco Use Types Packs/Day Years [...] COVID-19? No / Unsure 04/22/2020 10:59 AM PROCESS COACH documented as of this encounter Plan of Treatment Upcoming Encounters Date Type Department Care Team (Late st Contact Info) Description 10/08/2024 9:45 AM CDT Office Visit [facility] HOTEL OR MOTEL RECEPTIONIST - Medical [place] [address] [facility] [address] [place] [address] Terrie Manning MD [address] [facility] [address] [address] documented as of this encounter Results * GLUCOSE TOLERANCE 1 HR GESTATIONAL (04/22/2020 12:06 PM PROCESS COACH) GLUCOSE DOSE 50 Gram 04/22/2020 1:09 PM PROCESS COACH [facility] GLUCOSE 1 HR OBSTETRIC 87 65 - 139 mg/dL 04/22/2020 1:09 PM PROCESS COACH [facility] Blood Venipuncture / Unknown 04/22/2020 12:06 PM PROCESS COACH 04/22/2020 12:18 PM PROCESS COACH Terrie Manning MD CHEMISTRY ORDERABL ES [facility] CLIA# [id number] [address] [facility] [place] [address] documented in this encounter Visit Diagnoses Diagnosis Encounter for screening of mother- Primary Unspecified screening with 28 completed weeks gestation documented in this encounter Care Teams Movement Education Specialist Relationship Specialty Start Date End Date Terrie Manning MD PCP - General Obstetrics and Gynecology 05/27/13 documented as of this encounter
--- OUTSIDE RECORDS SUMMARY | 2024-05-27 15:09 | XMS_ITS | Encounter Summary ---
Author Organization [facility] Address [address] [place] [address] Care Team Providers Care Stone Gluer Name Role Phone Unavailable Primary Care Provider Unavailabl e Reason for Visit * Reason Comments Routine Visit Encounter Details Date Type Department Care Team (Late st Contact Info) Description 06/02/2020 12:30 PM CD MANUFACTURING SUPERVISOR visit [facility] NODE JS DEVELOPER - Medical [address] [address] Terrie Baca MD 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 No / Unsure 06/02/2020 11:26 AM CD MANUFACTURING SUPERVISOR documented as of this encounter Last Filed Vital Signs Vital Sign Reading Time Taken Comments Blood Pressure 110/70 06/02/2020 12:41 PM CD MANUFACTURING SUPERVISOR Pulse - - Temperature - - Respiratory Rate - - Oxygen Saturation - - Inhaled Oxygen Concentration - - Weight 86.5 kg (190 lb 12.8 oz) 020 12:41 PM CD MANUFACTURING SUPERVISOR Height - - Body Mass Index 27.38 04/01/2019 6:25 AM CDT documented in this encounter Progress Notes * Terrie Baca MD - 06/02/2020 12:49 PM CST 30-35 Weeks LOUIE SUBJECTIVE: Reports +FM; no LOF, VB, regular UCs. OBJECTIVE: See flowsheet. ASSESSMENT: 34 y.o. at 33w6d wks PLAN: Prior with Trisomy 18 Prior c/s with T incision-Repeat at 36 wks Anxiety-Cont Zoloft U/S for growth next week. Routine care RTC 1 wks. Pt to call/come with further questions/concerns. Terrie Baca MD MANUFACTURING SUPERVISOR documented in this encounter Plan of Treatment Upcoming Encounters Date Type Department Care Team (Late st Contact Info) Description 10/08/2024 9:45 AM CDT Office Visit [facility] NODE JS DEVELOPER - Medical [facility] [address] [address] Terrie Baca MD [address] [facility] [address] [place] [address] documented as of this encounter Visit Diagnoses Diagnosis 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 , currently , third trimester- Primary Anxiety state Anxiety state, unspecified History of low vertical section 33 weeks gestation of state, incidental documented in this encounter
--- OUTSIDE RECORDS SUMMARY | 2024-05-27 15:09 | XMS_ITS | Encounter Summary ---
Author Organization [facility] Address [address] [place] [address] Care Team Providers Care Hair Spring Winder Name Role Phone Terrie Manning MD Primary Care Provider +1- [phone] Reason for Visit * Reason Onset Date Comments Results 04/22/2020 Encounter Details Date Type Department Care Team (Late st Contact Info) Description 04/22/2020 Telephone [facility] STEREOTYPER HELPER - Medical [address] [address] Terrie Manning MD [address] [place] [address] Results Social History Tobacco Use Types Packs/Day Years [...] COVID-19? No / Unsure 04/22/2020 10:59 AM CLEARANCE CUTTER documented as of this encounter Miscellaneous Notes * Telephone Encounter - Hayley Matute LPN - 04/22/2020 4:12 PM CST Have tried several times to call patient. No voicemail picks up. [facility] message sent and will attempt to reach patient later. RANCE CUTTER * Telephone Encounter - Hayley Matute LPN - 04/22/2020 4:01 PM CST ----- Message from Terrie Manning MD sent at 04/22/2020 3:27 PM CLEARANCE CUTTER ----- Please contact the patient and tell her the TSH and glucose are normal. She is starting to be anemic and needs more folic acid and B12 (not iron). Please ERx folkadie. RANCE CUTTER documented in this encounter Plan of Treatment Upcoming Encounters Date Type Department Care Team (Late st Contact Info) Description 10/08/2024 9:45 AM CDT Office Visit [facility] STEREOTYPER HELPER - [facility] [address] [address] Terrie Manning MD [address] [facility] [address] [place] [address] documented as of this encounter Visit Diagnoses Not on filedocumented in this encounter Care Teams Hair Spring Winder Relationship Specialty Start Date End Date Terrie Manning MD PCP - General Obstetrics and Gynecology 05/27/13 documented as of this encounter
--- OUTSIDE RECORDS SUMMARY | 2024-05-27 15:09 | XMS_ITS | Encounter Summary ---
Author Organization [facility] Address [address] [place] [address] Care Team Providers Care Esthetic Dermatologist Name Role Phone Unavailable Primary Care Provider Unavailabl e Encounter Details Date Type Department Care Team (Late st Contact Info) Description 01/30/2024 External Device Data STL ABSTRACTION Provider, Abstract [...] CDT Office Visit [facility] SHIFT MANAGER - Medical [facility] [address] [facility] [address] [place] [address] Terrie Manning MD [address] [facility] [address] [place] [address] documented as of this encounter Visit Diagnoses Not on filedocumented in this encounter
--- OUTSIDE RECORDS SUMMARY | 2024-05-27 15:09 | XMS_ITS | Encounter Summary ---
Author Organization [facility] Address [address] [place] [address] Care Team Providers Care Banking Services Clerk Name Role Phone Unavailable Primary Care Provider Unavailabl e Reason for Visit * Auth/Cert Specialty Diagnoses / Procedures Referred By Contac t Referred To Contact Obstetrics Diagnoses EDC: 07/15/20 Repeat Classical Procedures SECTION [facility] [address] [place] [address] Referral ID Status Reason Start Date Expiration Date Visits Re quested Visits Authorized [id number] 1 1 Encounter Details Date Type Department Care Team (Late st Contact Info) Description 06/19/2020 7:28 AM PLANT AND INSTRUMENT ENGINEER Anesthesia Event [facility] Labor & [address] [place] [address] Micheline Carter MD [address] [facility] [address] [place] [address] Georgie Hebert, CURRY [address] [facility] [place] [address] Anesthesia Record Procedure Summary Procedure Name Responsible Anesthesiologist Anesthesia Start Time Anesthesia Stop Time SECTION (Abdomen) Micheline Carter MD 06/19/20 0728 06/19/20 0838 Events Date Time Event Comment 06/19/2020 0713 0728 An Start 0728 AN Equip Check Anesthesia eq uipment and materials checked in accordance with local policy. 0728 In Room This event disp lays the In Room time documented in the Surgical Log. Deleting this event will not remove it from the log but will remove it from the Grid and Graph timeline. 0729 An Start Data 0732 Pre-Induction Immediate pre- induction anesthetic assessment performed. Vital signs as noted on graphic. 0738 Rapid Seq Induction 0747 Anesthesia Ready 0752 Quick Note Block T4 on R, T6 on left prior to drape. Palak Carter MD 0753 Procedure Start This event d isplays the Procedure Start time documented in the Surgical Log. Deleting this event will not remove it from the log but will remove it from the Grid and Graph timeline. 0754 Patient Comfortable 0822 Quick Note In OR for closi ng. Pt stable, uterine tone adequate - Palak Carter MD 0828 Out of Room This event disp lays the Out of Room time documented in the Surgical Log. Deleting this event will not remove it from the log but will remove it from the Grid and Graph timeline. 0828 Procedure Stop This event di splays the Procedure Stop time documented in the Surgical Log. Deleting this event will not remove it from the log but will remove it from the Grid and Graph timeline. 0830 an stop data 0838 An Stop 0846 Quick Note Present on Labo r and to ensure safe and adequate regional anesthesia for surgery, stable physiology after delivery, and uneventful transfer to recovery area. Micheline Carter MD Meds Name Total ondansetron (ZOFRAN) 4??mg/2 mL injectio n 4 mg famotidine (pf) (PEPCID) 20 mg/2 mL inje ction 20 mg metoclopramide (REGLAN) 5 mg/mL injectio n 10 mg bupivacaine 0.75% in dextros e 8.25% PF (MARCAINE SPINAL) injection solution 1.6 mL fentaNYL PF (SUBLIMAZE) 15 mcg/0.3 mL sy ringe 15 mcg 15 mcg ketorolac (TORADOL) injection 30 mg 30 m g phenylephrine (RAMANA-SYNEPHRIN E) 25 mg/250 mL 0.9% sodium chloride infusion (INTRA-OP USE ONLY) 1,515.54 mcg oxytocin (PITOCIN) 10 unit/mL injection 3 Units lidocaine PF-EPINEPHrine (XYLOCAINE MPF- EPI) 2% - 1:200,000 injection 5 mL dexamethasone (DECADRON) 4 mg/mL injecti on 4 mg lactated ringers infusion 1,000 mL oxytocin (PITOCIN) 20 units in sodium ch loride 0.9% 1000 mL 500 mL * Agents Name O2 Inspired O2 N2O Inspired N2O * Blood No blood administrations on file. Lines, Drains, and Airways Type Details Placement Removal Peripheral IV Pre-Hospital Start: No; Orientation: Anterior, Left; Location: Hand; Device: Angiocath; Gauge: 18 gauge; Needle Length: 1.25 in length; Insertion Attempts: 2; Patient Tolerance: tolerated well; Removal Indication: no longer indicated 06/19/20 0600 by Terrie Rey RN 06/20/20 0820 by Judie Hooker RN Indwelling Urethral Catheter 06/19/20; 0743; Indwelling double lumen catheter; 16 Fr; inserted; 1; 10; 10; 06/19/20; 2300 06/19/20 0743 by Julia Archuleta RN 06/19/20 2300 by Hayley Vela RN Epidural Catheter Tip Intact: Yes 06/19/20 0748 by Georgie Hebert CRNA 06/20/20 0333 by Georgie Hebert CRNA Incision 06/19/20; 0821; surgical incision; Bilateral; abdomen; 06/22/20; 0043 06/19/20 0821 by Julia Archuleta RN 06/22/20 0043 by PROVIDER, DISCHARGE PATIENT documented in this encounter Social History Tobacco [...] COVID-19? No / Unsure 06/19/2020 5:36 AM PLANT AND INSTRUMENT ENGINEER documented as of this encounter OR Notes * Anesthesia Postprocedure Evaluation - Ely Murray MD - 06/19/2020 10:37 AM CST Post Anesthesia Evaluation Vitals: Vitals Value Taken Time BP 122/80 06/19/20 1030 Temp Resp 20 06/19/20 1014 SpO2 99 % 06/19/20 1014 Pulse 91 06/19/20 1014 Heart Rate 89 bpm 06/19/20 1014 Pain Rating: Pain Rating: Rest: 0 (06/19/20 1000) Anesthesia Post Evaluation Patient location during evaluation: OB Patient participation: patient was able to participate in the post op evaluation Level of consciousness: 0 = alert, responsive, answers simple questions appropriately, able to perform simple tasks Pain management: adequate Multimodal analgesia pain management approach Airway patency: patent Nausea or Vomiting: none Anesthetic complications: no Cardiovascular status: regular rate and rhythm Respiratory status: no respiratory symptoms Hydration status: well hydrated Comments: Bronwyn Modified Jesus Score: Score: 20 (06/19/20 1000) Ely Murray MD T AND INSTRUMENT ENGINEER * Anesthesia Handoff - Georgie Hebert CRNA - 06/19/2020 8:38 AM PLANT AND INSTRUMENT ENGINEER Post-Anesthetic transfer of care report elements to appropriate post-anesthesia recovery environment completed in accordance with procedure. I completed my handoff to the receiving nurse during which we: 1. Identified the patient 2. Identified the responsible provider 3. Reviewed the pertinent medical history 4. Discussed the surgical course 5. Reviewed intra-op anesthesia management and issues during anesthesia 6. Set expectations for post-procedure period 7. Orders as necessary and appropriate for continuation of care are present in Epic. 8. Allowed opportunity for questions and acknowledgement of understanding. Vital Signs: BP: 118/72 (06/19/2020 8:33 AM) Pulse: (!) 115 (06/19/2020 8:33 AM) Temp: 36.7 ??C (06/19/2020 6:19 AM) Resp: 22 (06/19/2020 8:33 AM) SpO2: 98 % (06/19/2020 8:33 AM) 8:38 AM Georgie Hebert CRNA T AND INSTRUMENT ENGINEER * Anesthesia Procedure Notes - Georgie Hebert CRNA - 06/19/2020 7:48 AM CSTAssociated Order(s): Anesthesia CSE Block Anesthesia CSE Block Patient location during procedure: OB Staffing Performed by: Georgie Hebert CRNA Preanesthetic Checklist Completed: patient identified, IV checked, site marked, risks and benefits discussed, monitors and equipment checked, pre-op evaluation and timeout performed CSE Hand hygiene performed prior to procedure Patient was prepped and draped in usual sterile fashion Time out performed Mask worn Patient position: Sitting Prep: ChloraPrep and site prepped and draped Local Anesthetic: Lidocaine 1% without epinephrine Patient monitoring: Continuous pulse oximetry and Non-invasive blood pressure Approach: Midline Point Comfort Identification: palpation technique Number of Attempts: 1 Spinal Needle Needle type: Pencil-tip Needle gauge: 27 G Needle length: 5 in CSF visualized Epidural Needle Identification Technique: SHILPA saline Needle Type: Tuohy Needle Gauge: 17 G Needle Length: 10 cm Needle Insertion Depth (cm): 5 Location: Lumbar (1-5) Catheter Catheter Type: Side holeCatheter Size: 19 GSkin Depth (cm): 10 Test dose: Lidocaine 1.5% with epinephrine 1-to-200,000 and Negative Test dose: 3Secured with: Tegaderm Assessment Outcome: A full evaluation is pending T AND INSTRUMENT ENGINEER * Anesthesia Preprocedure Evaluation - Micheline Carter MD - 06/19/2020 6:56 AM CST Relevant Problems Neuro/Psych (+) RLTCS 04/01 Anesthesia Evaluation Patient summary reviewed Airway Mallampati: I TM distance: >3 FB Neck ROM: full Dental - normal exam Pulmonary - negative ROS and normal exam breath sounds clear to auscultation (-) sleep apnea Cardiovascular - normal exam Rhythm: regular Rate: normal ROS comment: Septal defect that closed on its own Neuro/Psych (+) psychiatric history (Anxiety on zoloft) GI/Hepatic/Renal (+) GERD (On prilosec), Comments: IBS which is improved this Endo/Other - negative ROS Abdominal Anesthesia History History of PONV (With neuraxial morphine. Did well with demerol.).No history of anesthetic complications. Anesthesia Plan ASA Final: 2 Spinal and Epidural N/A induction NPO status > 6 hours Anesthetic plan and risks discussed with Patient and Spouse. Use of blood products: consented to blood products. Plan discussed with Nurse Nurse Advisor. Post-op Pain Control Plan to use Epidural for post-op pain control. Spinal Plan for postoperative opioid use Smoking Compliance Patient did not smoke on day of surgery assessment indications: previous para: Gestational age: 36w2d Temp: 36.7 ??C (06/19/20618) Temp src: Oral (06/19/20618) Pertinent interval changes in the patient's history or review of systems: None Recommendations: GI prophylaxis Choice of Anesthesia/Anesthesia Plan: Proceed, Regional and Routine Monitoring Postop pain management discussed yes History reviewed, patient seen and examined prior to induction of anesthesia. Regional anesthesia and general anesthesia if circumstances warrant discussed, including risks, benefits, and alternatives. Questions solicited and answered. Patient understands and wishes to proceed. T AND INSTRUMENT ENGINEER documented in this encounter Plan of Treatment Upcoming Encounters Date Type Department Care Team (Late st Contact Info) Description 10/08/2024 9:45 AM CDT Office Visit [facility] WAFER LINE WORKER - [facility] [address] [address] [address] Terrie Manning MD [address] [facility] [address] [place] [address] documented as of this encounter Procedures Procedure Name Priority Date/Time Associated Diagnosis Comments ND ANESTHESIA BLOCK PB PLACEHOLDER CHARGE Routine 06/19/2020 7:48 AM PLANT AND INSTRUMENT ENGINEER documented in this encounter Results * ND ANESTHESIA BLOCK PB PLACEHOLDER CHARGE (06/19/2020 7:48 AM PLANT AND INSTRUMENT ENGINEER) Narrative Georgie Hebert CRNA - 06/19/2020 7:48 AM PLANT AND INSTRUMENT ENGINEER Georgie Hebert CRNA ? 06/19/2020 ??7:48 AM Anesthesia CSE Block Patient location during procedure: OB Staffing Performed by: Georgie Hebert CRNA ?? Preanesthetic Checklist Completed: patient identified, IV checked, site marked, risks and benefits discussed, monitors and equipment checked, pre-op evaluation and timeout performed CSE Hand hygiene performed prior to procedure Patient was prepped and draped in usual sterile fashion Time out performed Mask worn Patient position: Sitting Prep: ChloraPrep and site prepped and draped ?? Local Anesthetic: Lidocaine 1% without epinephrine Patient monitoring: Continuous pulse oximetry and Non-invasive blood pressure Approach: Midline Point Comfort Identification: palpation technique Number of Attempts: 1 Spinal Needle Needle type: Pencil-tip Needle gauge: 27 G Needle length: 5 in CSF visualized Epidural Needle Identification Technique: SHILPA saline Needle Type: Tuohy Needle Gauge: 17 G Needle Length: 10 cm Needle Insertion Depth (cm): 5 Location: Lumbar (1-5) Catheter Catheter Type: Side holeCatheter Size: 19 GSkin Depth (cm): 10 Test dose: Lidocaine 1.5% with epinephrine 1-to-200,000 and Negative ?? Test dose: 3Secured with: Tegaderm Assessment Outcome: A full evaluation is pending Micheline Carter MD PROCEDURE/MINOR SURG ICAL ORDERABLES documented in this encounter Visit Diagnoses Not on filedocumented in this encounter Administered Medications Inactive Administered Medications - up to 3 most recent administrations Medication Order MAR Action Action Date Dose Rate Site bupivacaine-dextrose (PF) (MARCAINE SPINAL, SENSORCAINE-MPF) injection INTRA-PROCEDURE PRN, Starting on Mon06/19/20 at 0738, Until Mon06/19/20 at 0838, Routine, Anesthesia Intra-op Given 06/19/2020 7:38 AM PLANT AND INSTRUMENT ENGINEER 1.6 mL dexamethasone (DECADRON) injection INTRA-PROCEDURE PRN, Starting on Mon06/19/20 at 0810, Until Mon06/19/20 at 0838, Routine, Anesthesia Intra-op Given 06/19/2020 8:10 AM PLANT AND INSTRUMENT ENGINEER 4 mg famotidine PF (PEPCID) 20 mg/2 mL injection INTRA-PROCEDURE PRN, Starting on Mon06/19/20 at 0720, Until Mon06/19/20 at 0838, Routine, Anesthesia Intra-op Given 06/19/2020 7:20 AM PLANT AND INSTRUMENT ENGINEER 20 mg fentaNYL PF (SUBLIMAZE) 15 mcg/0.3 mL syringe 15 mcg 15 mcg, See Admin Instructions, INTRA-PROCEDURE ONCE, 1 dose, Starting on Mon06/19/20 at 0707, Until Mon06/19/20 at 0738, Routine Given 06/19/2020 7:38 AM PLANT AND INSTRUMENT ENGINEER 15 mcg ketorolac (TORADOL) injection 30 mg 30 mg, IV, ONE TIME ONLY, 1 dose, On Mon06/19/20 at 0715, Routine, (OB POST-OP PAIN SERVICE) Given 06/19/2020 8:23 AM PLANT AND INSTRUMENT ENGINEER 30 mg lactated ringers infusion IV, at 125 mL/hr, PRE-PROCEDURE CONTINUOUS, Starting on Mon06/19/20 at 0545, Until Mon06/19/20 at 1100, Routine, Pre-op Continue from Pre-Op 06/19/2020 6:54 AM PLANT AND INSTRUMENT ENGINEER New Bag 06/19/2020 6:26 AM PLANT AND INSTRUMENT ENGINEER 125 mL/hr lidocaine PF-EPINEPHrine (XYLOCAINE MPF-EPI) 2 %-1:200,000 injection INTRA-PROCEDURE PRN, Starting on Mon06/19/20 at 0751, Until Mon06/19/20 at 0838, Routine, Anesthesia Intra-op Given 06/19/2020 7:51 AM PLANT AND INSTRUMENT ENGINEER 5 mL metoclopramide (REGLAN) 5 mg/mL injection INTRA-PROCEDURE PRN, Starting on Mon06/19/20 at 0720, Until Mon06/19/20 at 0838, Routine, Anesthesia Intra-op Given 06/19/2020 7:20 AM PLANT AND INSTRUMENT ENGINEER 10 mg ondansetron (ZOFRAN) 4 mg/2 mL injection INTRA-PROCEDURE PRN, Starting on Mon06/19/20 at 0720, Until Mon06/19/20 at 0838, Routine, Anesthesia Intra-op Given 06/19/2020 7:20 AM PLANT AND INSTRUMENT ENGINEER 4 mg oxytocin (PITOCIN) 10 unit/mL injection INTRA-PROCEDURE PRN, Starting on Mon06/19/20 at 0800, Until Mon06/19/20 at 0838, Routine, Anesthesia Intra-op Given 06/19/2020 8:00 AM PLANT AND INSTRUMENT ENGINEER 3 Units oxytocin in sodium chloride 0.9 % (PITOCIN) 20 units in 1,000 mL infusion INTRA-PROCEDURE CONTINUOUS PRN, Starting on Mon06/19/20 at 0800, Until Mon06/19/20 at 0838, Routine, Anesthesia Intra-op New Bag 06/19/2020 8:00 AM PLANT AND INSTRUMENT ENGINEER phenylephrine (RAMANA-SYNEPHRINE) 25 mg/250 mL 0.9% sodium chloride infusion (INTRA-OP USE ONLY) 0.5 mcg/kg/min ? 87.1 kg (26.13 mL/hr, rounded to 26.1 mL/hr), IV, INTRA-PROCEDURE CONTINUOUS, Starting on Mon06/19/20 at 0715, Until Mon06/19/20 at 1114 Rate Change 06/19/2020 8:08 AM PLANT AND INSTRUMENT ENGINEER 0.3 mcg/kg/min 15.7 mL/hr New Bag 06/19/2020 7:38 AM PLANT AND INSTRUMENT ENGINEER 0.5 mcg/kg/min 26.1 mL/h r documented in this encounter
--- OUTSIDE RECORDS SUMMARY | 2024-05-27 15:09 | XMS_ITS | Encounter Summary ---
Author Organization [facility] Address [address] [place] [address] Care Team Providers Care Grocery Specialist Name Role Phone Terrie Baca MD Primary Care Provider [phone] Reason for Visit * Reason Comments Routine Visit Encounter Details Date Type Department Care Team (Late st Contact Info) Description 04/22/2020 11:30 AM GOVERNMENT RELATIONS MANAGER visit [facility] PLANNING INTERN - Medical [address] [address] Terrie Baca MD [address] [place] [address] 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 , currently , second trimester (Primary Dx); Encounter for screening of mother; Anxiety state; History of low vertical section; 28 weeks gestation of Social History Tobacco Use [...] COVID-19? No / Unsure 04/22/2020 10:59 AM GOVERNMENT RELATIONS MANAGER documented as of this encounter Last Filed Vital Signs Vital Sign Reading Time Taken Comments Blood Pressure 124/72 04/22/2020 11:45 AM GOVERNMENT RELATIONS MANAGER Pulse - - Temperature - - Respiratory Rate - - Oxygen Saturation - - Inhaled Oxygen Concentration - - Weight 81.6 kg (179 lb 12.8 oz) 020 11:45 AM GOVERNMENT RELATIONS MANAGER Height - - Body Mass Index 25.8 04/01/2019 6:25 AM CDT documented in this encounter Progress Notes * Terrie Baca MD - 04/27/2020 3:01 PM CST 24-28 Weeks LOUIE SUBJECTIVE: Reports positive movement, no abnormal vaginal discharge or regular UCs. No unusual complaints for this stage of . OBJECTIVE: See flowsheet. Rh positive ASSESSMENT: 34 y.o. at 28w5d wks PLAN: GCT today. Prior low vertical c/s. Repeat c/s scheduled. Prior child with Trisomy 18. Normal genetic testing. Anxiety-Cont Zoloft Precautions reviewed RTC 4 wks. Pt to call/come with further questions/concerns. Terrie Baca MD RNMENT RELATIONS MANAGER documented in this encounter Plan of Treatment Upcoming Encounters Date Type Department Care Team (Late st Contact Info) Description 10/08/2024 9:45 AM CDT Office Visit [facility] PLANNING INTERN - [facility] [address] [address] [address] Terrie Baca MD [address] [facility] [address] [place] [address] documented as of this encounter Results * (ABNORMAL) CBC WITH DIFFERENTIAL (04/22/2020 12:06 PM GOVERNMENT RELATIONS MANAGER) WBC 6.7 4.0 - 9.8 K/uL 04/22/2020 12:27 PM [facility] RBC 3.31(L) 3.90 - 4.90 M/uL 04/22/2020 12:27 PM [facility] HEMOGLOBIN 10.3(L) 11.8 - 14.8 g/dL 04/22/2020 12:27 PM GOVERNMENT RELATIONS MANAGER [facility] HEMATOCRIT 33.1(L) 35.5 - 44.0 % 04/22/2020 12:27 PM GOVERNMENT RELATIONS MANAGER [facility] MCV 100.0(H) 82.0 - 99.0 fL 04/22/2020 12:27 PM GOVERNMENT RELATIONS MANAGER [facility] MCH 31.1 27.2 - 32.6 pg 04/22/2020 12:27 PM GOVERNMENT RELATIONS MANAGER [facility] MCHC 31.1(L) 31.5 - 35.5 g/dL 04/22/2020 12:27 PM [facility] RDW 13.2 11.5 - 14.5 % 04/22/2020 12:27 PM GOVERNMENT RELATIONS MANAGER [facility] RDW-STDEV 49.2(H) 37.1 - 48.7 fL 04/22/2020 12:27 PM GOVERNMENT RELATIONS MANAGER [facility] PLATELETS 263 140 - 350 K/uL 04/22/2020 12:27 PM GOVERNMENT RELATIONS MANAGER [facility] MPV 8.9(L) 9.3 - 12.4 fL 04/22/2020 12:27 PM [facility] NEUTROPHILS 71 % 04/22/2020 12:27 PM GOVERNMENT RELATIONS MANAGER [facility] LYMPHOCYTES 18 % 04/22/2020 12:27 PM GOVERNMENT RELATIONS MANAGER [facility] - [facility] MONOCYTES 10 % 04/22/2020 12:27 PM GOVERNMENT RELATIONS MANAGER [facility] - . [facility] EOSINOPHILS 1 % 04/22/2020 12:27 PM GOVERNMENT RELATIONS MANAGER [facility] BASOPHILS 0 % 04/22/2020 12:27 PM [facility] IMMATURE GRANULOCYTES 1 % 04/22/2020 12:27 PM GOVERNMENT RELATIONS MANAGER [facility] Comment:IG (Immature Granulo cyte) count includes Metamyelocytes, Myelocytes, and Promyelocytes NEUTROPHIL ABSOLUTE 4.74 1.90 - 7.00 K/uL 04/22/2020 12:27 PM GOVERNMENT RELATIONS MANAGER [facility] LYMPHOCYTE ABSOLUTE 1.19 0.70 - 4.50 K/uL 04/22/2020 12:27 PM GOVERNMENT RELATIONS MANAGER [facility] - [facility] MONOCYTE ABSOLUTE 0.65 0.10 - 1.30 K/uL 04/22/2020 12:27 PM GOVERNMENT RELATIONS MANAGER [facility] EOSINOPHIL ABSOLUTE 0.03 0.00 - 0.70 K/uL 04/22/2020 12:27 PM GOVERNMENT RELATIONS MANAGER [facility] BASOPHILS ABSOLUTE 0.01 0.00 - 0.20 K/uL 04/22/2020 12:27 PM GOVERNMENT RELATIONS MANAGER [facility] - [facility] IMMATURE GRANULOCYTES ABSOLUTE 0.04(H) 0.00 - 0.03 K/uL 04/22/2020 12:27 PM GOVERNMENT RELATIONS MANAGER [facility] Blood Venipuncture / Unknown 04/22/2020 12:06 PM GOVERNMENT RELATIONS MANAGER 04/22/2020 12:19 PM GOVERNMENT RELATIONS MANAGER Terrie Baca MD HEMATOLOGY ORDERAB LES [facility] [employer] [facility] CLIA# [id number] [address] [place] [address] * TSH (04/22/2020 12:06 PM GOVERNMENT RELATIONS MANAGER) TSH 0.75 0.27 - 4.20 uIU/mL 04/22/2020 1:16 PM GOVERNMENT RELATIONS MANAGER [facility] LABOR[facility]ORY [facility] Blood Venipuncture / Unknown 04/22/2020 12:06 PM GOVERNMENT RELATIONS MANAGER 04/22/2020 12:18 PM GOVERNMENT RELATIONS MANAGER Terrie Baca MD CHEMISTRY ORDERABL ES [facility] CLIA# [id number] [address] [place] [address] documented in this encounter Visit Diagnoses Diagnosis 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 , currently , second trimester- Primary Encounter for screening of mother Unspecified screening Anxiety state Anxiety state, unspecified History of low vertical section 28 weeks gestation of state, incidental documented in this encounter Care Teams Grocery Specialist Relationship Specialty Start Date End Date Terrie Baca MD PCP - General Obstetrics and Gynecology 05/27/13 documented as of this encounter
--- OUTSIDE RECORDS SUMMARY | 2024-05-27 15:09 | XMS_ITS | Encounter Summary ---
Author Organization [facility] Address [address] [place] [address] Care Team Providers Care Corporate Relations Director Name Role Phone Unavailable Primary Care Provider Unavailabl e Reason for Referral * Radiology Services (Routine) - Closed Specialty Diagnoses / Procedures Referred By Cheikh pichardo Referred To Contact Radiology Diagnoses Screening mammogram, encounter for Procedures MAMMO SCRN BILAT 3D BOUBACAR W OR WO CAD CHG SCREENING MAMMOGRAPHY BI 2-VIEW BREAST INC CAD CHG SCREENING DIGITAL BREAST TOMOSYNTHESIS Terrie Baca MD [facility] [facility] [address] [place] [address] [facility] Breast [facility] [address] [place] [address] Referral ID Status Reason Start Date Expiration Date Visits Re quested Visits Authorized [id number] Closed 09/27/2022 10/28/2023 1 1 Reason for Visit * Reason Comments Well Woman Exam Encounter Details Date Type Department Care Team (Late st Contact Info) Description 09/27/2022 2:15 PM CDT [facility] Visit [facility] RECEIVING ASSOCIATE - Medical [facility] [address] [facility] [address] [place] [address] Terrie Baca MD [address] [facility] [address] [address] Well female exam with routine gynecological exam (Primary Dx); Menstrual migraine without status migrainosus, not intractable; Anxiety state; Screening mammogram, encounter for Social History Tobacco Use Types Packs/Day Years [...] Sign Reading Time Taken Comments Blood Pressure 114/82 09/27/2022 2:16 PM CDT Pulse - - Temperature - - Respiratory Rate - - Oxygen Saturation - - Inhaled Oxygen Concentration - - Weight 74.7 kg (164 lb 9.6 oz) 09/27/2022 2:16 P M CDT Height 179.1 cm (5' 10.5 ) 09/27/2022 2:16 PM CD T Body Mass Index 23.28 09/27/2022 2:16 PM CDT documented in this encounter Progress Notes * Terrie Baca MD - 09/27/2022 2:39 PM CDT CC: Well-Woman Exam HPI: Angela Alarcon is a 36 y.o. female who presents today for her annual well- woman exam. She denies complaints today. She does perform monthly self breast exams and has not noticed any changes or masses. Patient's last menstrual period was 09/17/2022. Periods are usually regular. Review of Systems Constitutional: Positive for fatigue. Negative for appetite change and fever. Weight gain HENT: Negative. Eyes: Negative. Respiratory: Negative for [...] LEEP PROCEDURE 2016 HX WISDOM TEETH EXTRACTION [place] DELIVERY ONLY N/A 08/21/2017 SECTION performed by Terrie Baca MD at [email or web address] L&D [place] DELIVERY ONLY N/A 04/01/2019 SECTION performed by Terrie Baca MD at [facility] [[email or web address]] L&D [place] DELIVERY ONLY N/A 06/19/2020 SECTION performed by Terrie Baca MD at [facility] L&D [place] COLONOSCOPY FLX DX W/COLLJ SPEC WHEN PFRMD 06/06/2013 COLONOSCOPY performed by Xavi Aquino MD at [facility] [place] ESOPHAGOGASTRODUODENOSCOPY TRANSORAL DIAGNOSTIC 06/06/2013 ESOPHAGOGASTRODUODENOSCOPY performed by Xavi Aquino MD at [facility] [place] HYSTEROSCOPY BX ENDOMETRIUM&/POLYPC W/WO D&C N/A 08/11/2016 HYSTEROSCOPY WITH DILATATION AND CURETTAGE SUCTION performed by Dustin Bill MD at [facility] ORAL SURGERY Family History Problem Relation Name Age of Onset Colon Polyps Maternal Grandmother Hypertension Father Jone Billings No Known Problems Mother Colon Cancer Paternal Grandfather Sergio Billings Healthy Son Bob Alarcon Social History Tobacco Use Smoking status: Never Smokeless tobacco: Never Vaping Use Vaping Use: Never used Substance Use Topics Alcohol use: Yes Alcohol/week: 0.0 standard drinks Comment: 2-3 drinks a month Drug use: [...] HOURS. Strength: 100 mg 8 Tablet 6 sertraline (Zoloft) 25 mg tablet Take 1 Tablet (25 mg) by mouth daily. 30 Tablet 6 [DISCONTINUED] ubrogepant (Ubrelvy) 100 mg tablet Take 1 Tablet (100 mg) by mouth daily. TAKE 1 TABLET (100 MG) BY MOUTH DAILY. TAKE ONE TABLET DIRECTED. MAY REPEAT DOSE ONCE IF NO RESOLVE IN SYMPTOMS AFTER 2 HR. DO NOT EXCEED 200 MG IN 24 HOURS. Strength: 100 mg 30 Tablet 6 No current facility-administered medications for this visit. No Known Allergies Screening: No results found for this or any previous visit. Physical Exam: Vitals: 09/27/22 1416 BP: 114/82 BP Location: Right arm Patient Position (BP): Sitting BP Cuff Size: Adult Weight: 74.7 kg (164 lb 9.6 oz) Height: 5' 10.5 (1.791 m) Physical [...] Affect: Mood normal. Behavior: Behavior normal. Assessment/Plan: 36 y.o. female here today for a well-woman exam. 1. Well female exam with routine gynecological exam - CERV/VAG CYTO SCREEN PAP RLFX HPV; Future 2. Menstrual migraine without status migrainosus, not intractable 3. Anxiety state 4. Screening mammogram, encounter for - MAMMO SCRN BILAT 3D BOUBACAR W OR WO CAD; Future 1. Pap obtained today. Will follow-up with the results with the patient as they become available. 2. Health Maintenance - Encouraged self breast exams. Baseline mammogram ordered. 3. Contraception - vasectomy 4. Menstrual migraines-Ubrelvey ERx. 5. Anxiety-Stable. Only takes the Zoloft occasionally. 6. RTC 1yr for WWE or sooner if she has any questions, concerns, complaints. Terrie Baca MD documented in this encounter Plan of Treatment Upcoming Encounters Date Type Department Care Team (Late st Contact Info) Description 10/08/2024 9:45 AM CDT Office Visit [facility] RECEIVING ASSOCIATE - Medical [facility] [address] [address] Terrie Baca MD [address] [facility] [address] [address] documented as of this encounter Procedures Procedure Name Priority Date/Time Associated Diagnosis Comments CERV/VAG CYTO SCREEN PAP RLFX HPV Routine 09/27/2022 2:58 PM CDT Well female exam with routine gynecological exam documented in this encounter Results * MAMMO SCRN BILAT 3D BOUBACAR W OR WO CAD (11/22/2022 2:19 PM CDT) Anatomical Region Laterality Modality Breast Bilateral Mammography 11/22/2022 2:20 PM CDT Impressions 11/22/2022 4:29 PM CDT IMPRESSION: No mammographic evidence of malignancy in the bilateral breasts. Routine screening mammography is recommended in 1 year. OVERALL FINAL ASSESSMENT: ??BI-RADS CATEGORY 1 - Negative DICTATION LOCATION: [facility] Narrative 11/22/2022 4:29 PM CDT EXAMINATION: BILATERAL SCREENING DIGITAL MAMMOGRAPHY WITH TOMOSYNTHESIS AND CAD DATE: 11/22/2022 2:19 PM HISTORY: Baseline screening mammography. COMPARISON: None available. Baseline mammography. TECHNIQUE: A bilateral screening mammogram was performed. Low-dose full-field digital breast tomosynthesis examination was performed with 2D and 3D acquisitions. Examination is read in conjunction with computer aided detection. ?? BREAST COMPOSITION: The breasts are heterogeneously dense, which may obscure small masses. FINDINGS: There are no suspicious masses, suspicious calcifications, or other suspicious findings in either breast. Computer aided detection was used in the interpretation of this examination. Procedure Note Frederick Haddad MD - 11/22/2022 EXAMINATION: BILATERAL SCREENING DIGITAL MAMMOGRAPHY WITH TOMOSYNTHESIS AND CAD DATE: 11/22/2022 2:19 PM HISTORY: Baseline screening mammography. COMPARISON: None available. Baseline mammography. TECHNIQUE: A bilateral screening mammogram was performed. Low-dose full-field digital breast tomosynthesis examination was performed with 2D and 3D acquisitions. Examination is read in conjunction with computer aided detection. BREAST COMPOSITION: The breasts are heterogeneously dense, which may obscure small masses. FINDINGS: There are no suspicious masses, suspicious calcifications, or other suspicious findings in either breast. Computer aided detection was used in the interpretation of this examination. IMPRESSION: No mammographic evidence of malignancy in the bilateral breasts. Routine screening mammography is recommended in 1 year. OVERALL FINAL ASSESSMENT: BI-RADS CATEGORY 1 - Negative DICTATION LOCATION: [facility] Terrie Baca MD MAMMO ORDERABLES * CERV/VAG CYTO SCREEN PAP RLFX HPV (09/27/2022 2:58 PM CDT) CLINICAL INFORMATION Latha Prather Comment:None given LAST MENSTRUAL PERIOD Ltaha Prather Comment:[id number] PREV PAP: Latha Prather Comment:NONE GIVEN PREV BX: Latha Prather Comment:NONE GIVEN SOURCE Latha Prather Comment:Endocervix ADEQUACY: Latha Prather Comment: Satisfactory for evaluation. Endocervical/transformation zone component present. PAP INTERP Latha Prather Comment:Negative for intraep ithelial lesion or malignancy. COMMENT (PAP TEST) Q uest Keyur Prather Comment: This Pap test has been evaluated with computer assisted technology. DISPUTE SPECIALIST: Homer Prather Comment: BKA, CT(ASCP) CT screening location: [place] [address] [address] [address] REVIEW DISPUTE SPECIALIST: Latha Prather Comment: PCM, CT(ASCP) CT Screening Location: [place] [address] [address] [address] EXPLANATORY NOTE [facility] Comment: EXPLANATORY NOTE: The Pap is a screening test for cervical cancer. It is not a diagnostic test and is subject to false negative and false positive results. It is most reliable when a satisfactory sample, regularly obtained, is submitted with relevant clinical findings and history, and when the Pap result is evaluated along with historic and current clinical information. Test Performed at: [place] [address] [place] ??[id number] GuerdaJosue Carla Jay Genital SWAB OF ENDOCERVIX / Unknown 09/27/2022 2:58 PM CDT 09/28/2022 3:22 AM CDT Terrie Baca MD PATHOLOGY/CYTOLOGY ORDERABLES [facility] [phone] [place] [address] [address] [place] [address] documented in this encounter Visit Diagnoses Diagnosis Well female exam with routine gynecological exam- Primary Routine gynecological examination Menstrual migraine without status migrainosus, not intractable Menstrual migraine, without mention of intractable migraine without mention of status migrainosus Anxiety state Anxiety state, unspecified Screening mammogram, encounter for Screening mammogram, encounter for documented in this encounter
--- OUTSIDE RECORDS SUMMARY | 2024-05-27 15:09 | XMS_ITS | Encounter Summary ---
Author Organization [facility] Address [address] [place] [address] Care Team Providers Care Cannery Tender Engineer Name Role Phone Unavailable Primary Care Provider Unavailabl e Reason for Visit * Reason Comments Medication Refill Encounter Details Date Type Department Care Team ([facility] Contact Info) Description 01/17/2021 [facility]ill [facility] EXTRA GANG SUPERVISOR - [address] [address] Terrie Manning MD [address] [address] Social History Tobacco Use Types [...] Upcoming Encounters Date Type Department Care Team ([facility] Contact Info) Description 10/08/2024 9:45 AM CDT [facility] EXTRA GANG SUPERVISOR - [address] [address] Terrie Manning MD [address] [place], [place] [address] [address] documented as of this encounter Visit Diagnoses Not on filedocumented in this encounter
--- OUTSIDE RECORDS SUMMARY | 2024-05-27 15:09 | XMS_ITS | Encounter Summary ---
Author Organization [facility] Address [address] [facility] Attn: [place] [address] Care Team Providers Care Personnel Supervisor Name Role Phone Unavailable Primary Care Provider Unavailabl e Encounter Details Date Type Department Care Team (Latest Contact Info) Description 06/19/2020 Travel Social History Tobacco Use Types Packs/Day [...] COVID-19? No / Unsure 06/19/2020 5:36 AM FRUIT LOADER documented as of this encounter Plan of Treatment Upcoming Encounters Date Type Department Care Team (Late st Contact Info) Description 10/08/2024 9:45 AM CDT Office Visit [facility] HEATING MECHANIC - Medical [place] [address] [address] [address] Terrie Manning MD [address] [facility] [address] [address] documented as of this encounter Visit Diagnoses Not on filedocumented in this encounter
--- OUTSIDE RECORDS SUMMARY | 2024-05-27 15:09 | XMS_ITS | Encounter Summary ---
Author Organization [facility] Address [address] [facility] Attn: [place] [address] Care Team Providers Care Forgesmith Name Role Phone Unavailable Primary Care Provider Unavailabl e Encounter Details Date Type Department Care Team (Latest Contact Info) Description 07/29/2020 Travel Social History Tobacco Use Types Packs/Day [...] COVID-19? No / Unsure 07/29/2020 11:22 AM EXECUTIVE CYBER LEADER documented as of this encounter Plan of Treatment Upcoming Encounters Date Type Department Care Team (Late st Contact Info) Description 10/08/2024 9:45 AM CDT Office Visit [facility] SPECTROGRAPHER - Medical [place] [address] [address] [address] Terrie Manning MD [address] [facility] [address] [address] documented as of this encounter Visit Diagnoses Not on filedocumented in this encounter
--- OUTSIDE RECORDS SUMMARY | 2024-05-27 15:09 | XMS_ITS | Encounter Summary ---
Author Organization [facility] Address 5 [facility] Attn: [place] [address] Care Team Providers Care Director Of Medical Staff Services Name Role Phone Unavailable Primary Care Provider Unavailabl e Encounter Details Date Type Department Care Team (Latest Contact Info) Description 09/07/2020 Travel Social History Tobacco Use Types Packs/Day [...] 9:45 AM CDT Office Visit [facility] ELECTRIC POWER MACHINE OPERATOR - Medical [place] [address] [address] [address] Terrie Manning MD [address] [facility] [address] [address] documented as of this encounter Visit Diagnoses Not on filedocumented in this encounter
--- OUTSIDE RECORDS SUMMARY | 2024-05-27 15:09 | XMS_ITS | Encounter Summary ---
Author Organization [employer] Address [address] [place] [address] Care Team Providers Care Acting Section Chief Name Role Phone Unavailable Primary Care Provider Unavailabl e Reason for Referral * Radiology Services (Routine) - Closed Specialty Diagnoses / Procedures Referred By Contelia t Referred To Contact Radiology Diagnoses Screening mammogram, encounter for Procedures MAMMO SCRN BILAT 3D BOUBACAR W OR WO CAD CHG SCREENING MAMMOGRAPHY BI 2-VIEW BREAST INC CAD CHG SCREENING DIGITAL BREAST TOMOSYNTHESIS Terrie Manning MD [facility] [address] [place] [address] [facility] Breast [facility] [address] [place] [address] Referral ID Status Reason Start Date Expiration Date Visits Re quested Visits Authorized [id number] Closed 09/27/2022 10/28/2023 1 1 Reason for Visit * Radiology Services (Routine) - Closed Specialty Diagnoses / Procedures Referred By Contac t Referred To Contact Radiology Diagnoses Screening mammogram, encounter for Procedures MAMMO SCRN BILAT 3D BOUBACAR W OR WO CAD CHG SCREENING MAMMOGRAPHY BI 2-VIEW BREAST INC CAD CHG SCREENING DIGITAL BREAST TOMOSYNTHESIS BI Terrie Manning MD [address] [facility] [address] [facility] [place] [address] [facility] A [address] [place] [address] Referral ID Status Reason Start Date Expiration Date Visits Re quested Visits Authorized [id number] Closed 09/27/2022 10/28/2023 1 1 Encounter Details Date Type Department Care Team (Latest Contact Info) Description 11/22/2022 1:56 PM CDT - 11/22/2022 11:59 PM CDT Hospital Encounter [facility] Medical [place] [address] [place] [address] Terrie Manning MD 6[address] [facility] [address] [place] [address] Discharge Disposition: Home or Self [...] AM CDT documented as of this encounter Medications at Time of Discharge Medication Sig Dispensed Refills Start Date End Date ubrogepant (Ubrelvy) 100 mg tablet Take 1 Tablet (100 mg) by mouth daily. TAKE 1 TABLET (100 MG) BY MOUTH DAILY. TAKE ONE TABLET DIRECTED. MAY REPEAT DOSE ONCE IF NO RESOLVE IN SYMPTOMS AFTER 2 HR. DO NOT EXCEED 200 MG IN 24 HOURS. Strength: 100 mg 8 Tablet 6 09/27/2022 10/03/2023 documented as of this encounter Plan of Treatment Upcoming Encounters Date Type Department Care Team (Late st Contact Info) Description 10/08/2024 9:45 AM CDT Office Visit [facility] APPLICATIONS TESTER - Medical [facility] [address] [facility] [address] [place] [address] Terrie Manning MD [address] [facility] [address] [address] documented as of this encounter Procedures Procedure Name Priority Date/Time Associated Diagnosis Comments MAMMO 3D BOUBACAR SCREEN BILAT W OR WO CAD Routine 11/22/2022 2:19 PM CDT Screening mammogram, encounter for documented in this encounter Results * MAMMO SCRN BILAT 3D BOUBACAR W OR WO CAD (11/22/2022 2:19 PM CDT) Anatomical Region Laterality Modality Breast Bilateral Mammography 11/22/2022 2:20 PM CDT Impressions 11/22/2022 4:29 PM CDT IMPRESSION: No mammographic evidence of malignancy in the bilateral breasts. Routine screening mammography is recommended in 1 year. OVERALL FINAL ASSESSMENT: ??BI-RADS CATEGORY 1 - Negative DICTATION LOCATION: [facility] Narrative 11/22/2022 4:29 PM CDT EXAMINATION: BILATERAL [...] BI-RADS CATEGORY 1 - Negative DICTATION LOCATION: [facility] Terrie Manning MD MAMMO ORDERABLES documented in this encounter Visit Diagnoses Diagnosis Screening mammogram, encounter for documented in this encounter
--- OUTSIDE RECORDS SUMMARY | 2024-05-27 15:09 | XMS_ITS | Encounter Summary ---
Author Organization [facility] Address [address] [place] [address] Care Team Providers Care Director Biologics Name Role Phone Unavailable Primary Care Provider Unavailabl e Reason for Visit * Reason Onset Date Comments Medication Refill 06/24/2020 Encounter Details Date Type Department Care Team (Late st Contact Info) Description 06/24/2020 Refill [facility] CASTING TECHNICIAN - Medical [address] [address] Terrie Manning MD [address] [place] [address] Social History Tobacco Use Types [...] COVID-19? No / Unsure 06/19/2020 5:36 AM WAFER FAB OPERATOR documented as of this encounter Miscellaneous Notes * Telephone Encounter - Terrie Manning MD - 06/24/2020 12:02 PM WAFER FAB OPERATOR Pt contacted office with sx of UTI 5 days after repeat c/s. Keflex ERx to [facility]. She will call if hersymptoms do not resolve. Terrie Manning MD R FAB OPERATOR documented in this encounter Plan of Treatment Upcoming Encounters Date Type Department Care Team (Late st Contact Info) Description 10/08/2024 9:45 AM CDT Office Visit [facility] CASTING TECHNICIAN - [facility] [address] [address] [address] Terrie Manning MD [address] [facility] [address] [place] [address] documented as of this encounter Visit Diagnoses Not on filedocumented in this encounter
--- OUTSIDE RECORDS SUMMARY | 2024-05-27 15:09 | XMS_ITS | Encounter Summary ---
Author Organization [facility] Address 5 [facility] [address] Attn: [place] [address] Care Team Providers Care Moth Exterminator Name Role Phone Unavailable Primary Care Provider Unavailabl e Encounter Details Date Type Department Care Team (Latest Contact Info) Description 06/10/2020 Travel Social History Tobacco Use Types Packs/Day [...] COVID-19? No / Unsure 06/10/2020 10:27 AM RODENT EXTERMINATOR documented as of this encounter Plan of Treatment Upcoming Encounters Date Type Department Care Team (Late st Contact Info) Description 10/08/2024 9:45 AM CDT Office Visit [facility] BOX SPRING UPHOLSTERER - Medical [facility] [address] [address] [address] Terrie Manning MD [address] [facility] [address] [place] [address] documented as of this encounter Visit Diagnoses Not on filedocumented in this encounter
--- OUTSIDE RECORDS SUMMARY | 2024-05-27 15:09 | XMS_ITS | Encounter Summary ---
Author Organization [facility] Address [address] [place] [address] Care Team Providers Care Shipping Processor Name Role Phone Unavailable Primary Care Provider Unavailabl e Reason for Visit * Reason Onset Date Comments Needs Form Or Letter Filled Out 09/08/2020 PA/PREMARIN CREAM Encounter Details Date Type Department Care Team (Late st Contact Info) Description 09/08/2020 Telephone [facility] CATALYTIC CONVERTER OPERATOR - Medical [facility] [address] [place] [address] [address] Terrie Manning MD [address] [facility] [address] [address] Needs Form Or Letter Filled Out (PA/PREMARIN CREAM) Social History Tobacco Use Types Packs/Day Years [...] PM CDT documented as of this encounter Miscellaneous Notes * Telephone Encounter - Hayley Matute LPN - 09/08/2020 12:26 PM CDT Prior authorization request received for Premarin cream. Per insurance, they will pay for estradiolcream in place of Premarin and per deshawn Dove to substitute. documented in this encounter Plan of Treatment Upcoming Encounters Date Type Department Care Team (Late st Contact Info) Description 10/08/2024 9:45 AM CDT Office Visit [facility] CATALYTIC CONVERTER OPERATOR - Medical [facility] [address] [address] [address] Terrie Manning MD [address] [facility] [address] [address] documented as of this encounter Visit Diagnoses Not on filedocumented in this encounter
--- OUTSIDE RECORDS SUMMARY | 2024-05-27 15:09 | XMS_ITS | Encounter Summary ---
Author Organization [facility] Address 5 [facility] Attn: [place] [address] Care Team Providers Care Vp Integration Name Role Phone Unavailable Primary Care Provider Unavailabl e Encounter Details Date Type Department Care Team (Latest Contact Info) Description 09/27/2021 Travel Social History Tobacco Use Types Packs/Day [...] 10/08/2024 9:45 AM CDT Office Visit [facility] ASSISTANT MANAGER QUALITY MANAGEMENT - Medical [facility] [address] [address] Terrie Manning MD [address] [facility] [address] [address] documented as of this encounter Visit Diagnoses Not on filedocumented in this encounter
--- OUTSIDE RECORDS SUMMARY | 2024-05-27 15:10 | XMS_ITS | Encounter Summary ---
Author Organization [facility] Address [address] [place] [address] Care Team Providers Care Machine Filler Shredder Name Role Phone Terrie Manning MD Primary Care Provider +1- [phone] Reason for Visit * Reason Onset Date Comments Results 11/13/2019 Encounter Details Date Type Department Care Team (Late st Contact Info) Description 11/13/[address] [facility] RECEIVER DISPATCHER - Medical [address] [address] Terrie Manning MD [address] [place] [address] Results Social History Tobacco Use [...] have Coronavirus / COVID-19? No / Unsure 11/13/2019 10:40 AM CDT documented as of this encounter Miscellaneous Notes * Telephone Encounter - Hayley Matuet LPN - 11/13/2019 2:22 PM CDT Patient notified of results and recommendations. NL hCG with low progesterone. Prometrium 200 mg #30 ERx. Patient advised to take as directed until week 12 of her . Patient is scheduled for US and OB initial with [facility] on 11/26. Patient advised to keep appointment as scheduled and call with concerns before that time. Patient verbalizes understanding. * Telephone Encounter - Hayley Matute LPN - 11/13/2019 1:57 PM CDT No VM picked up. Patient was sent a [facility] message and will attempt to contact patient later today, if she does not respond. * Telephone Encounter - Hayley Matute LPN - 11/13/2019 1:56 PM CDT ----- Message from Terrie Manning MD sent at 11/13/2019 1:37 PM CDT ----- Please contact the patient and tell her the progesterone is only 14, so I would like for her to start Prometrium 200mg q hs. Her hcg looks good. documented in this encounter Plan of Treatment Upcoming Encounters Date Type Department Care Team (Late st Contact Info) Description 10/08/2024 9:45 AM CDT Office Visit [facility] RECEIVER DISPATCHER - [facility] [address] [address] [address] Terrie Manning MD [address] [facility] [address] [place] [address] documented as of this encounter Visit Diagnoses Not on filedocumented in this encounter Care Teams Machine Filler Shredder Relationship Specialty Start Date End Date Terrie Manning MD PCP - General Obstetrics and Gynecology 05/27/13 documented as of this encounter
--- OUTSIDE RECORDS SUMMARY | 2024-05-27 15:10 | XMS_ITS | Encounter Summary ---
Author Organization [facility] Address 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 No / Unsure 01/29/2020 12:32 PM CDT documented as of this encounter Last Filed Vital Signs Vital Sign Reading Time Taken Comments Blood Pressure 120/70 01/29/2020 12:44 PM CDT Pulse - - Temperature - - Respiratory Rate - - Oxygen Saturation - - Inhaled Oxygen Concentration - - Weight 73.5 kg (162 lb) 01/29/2020 12:44 PM CDT Height - - Body Mass Index 23.24 04/01/2019 6:25 AM CDT documented in this encounter Progress Notes * Terrie Baca MD - 01/30/2020 1:24 PM CDT 12-16 Weeks LOUIE SUBJECTIVE: Angela A Ivana reports no abnormal vaginal bleeding or abdominal cramping. No unusual complaints for this stage of . OBJECTIVE: See flowsheet. ASSESSMENT: 34 y.o. at 16w1d wks with Estimated Date of Delivery: Estimated Date of Delivery: 07/15/20 PLAN: U/S today for FHR shows normal limited anatomy. F/U in 4 weeks for complete anatomy scan. Trisomy 18 in prior . History c/s with T extension. Routine care RTC 4 wks Pt to call or return with further questions or concerns. Terrie Baca MD documented in this encounter Plan of Treatment Upcoming Encounters Date Type Department Care Team (Late st Contact Info) Description 10/08/2024 9:45 AM CDT Office Visit [facility] [place] INSPECTOR AND MENDER - Medical [facility] [address] [address] [address] Terrie Baca MD [facility] [address] 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
--- OUTSIDE RECORDS SUMMARY | 2024-05-27 15:10 | XMS_ITS | Encounter Summary ---
Author Organization [facility] Address [address] [place] [address] Care Team Providers Care Rehab Tech Name Role Phone Terrie Manning MD Primary Care Provider +1- [phone] Reason for Visit * Reason Comments Test Encounter Details Date Type Department Care Team (Late st Contact Info) Description 11/13/2019 11:00 AM CDT Office Visit [facility] LAMINATOR - Medical [address] [address] Terrie Manning MD [address] [place] [address] Encounter for confirmation of test result with physical examination (Primary Dx); Screening for cervical cancer Social History Tobacco Use Types Packs/Day Years [...] Sign Reading Time Taken Comments Blood Pressure 102/70 11/13/2019 10:50 AM CDT Pulse - - Temperature - - Respiratory Rate - - Oxygen Saturation - - Inhaled Oxygen Concentration - - Weight 74.4 kg (164 lb) 11/13/2019 10:50 AM CDT Height - - Body Mass Index 23.53 04/01/2019 6:25 AM CDT documented in this encounter Progress Notes * Terrie Manning MD - 11/13/2019 11:10 AM CDT SUBJECTIVE: Angela Alarcon is a very pleasant 33 y.o. female who presents for confirmation of . Patient's last menstrual period was 10/09/2019. EDC calculated as 07/19/2020 by LMP Patient is having nausea. Denies vaginal bleeding or cramping. Last pap smear was >1 year(s) ago. OB History 3 Para 2 Term 1 1 AB 1 Living 2 SAB 1 TAB 0 Ectopic 0 Multiple 0 Live Births 2 GynHx: No history of STDs, HSV, or history of abnormal paps. Past Medical History: Diagnosis Date ??? Abdominal [...] 2015 ??? HX WISDOM TEETH EXTRACTION ??? HI DELIVERY ONLY N/A 08/21/2017 SECTION performed by Terrie Manning MD at [facility] L&D ??? HI DELIVERY ONLY N/A 04/01/2019 SECTION performed by Terrie Manning MD at [facility] L&D ??? HI COLONOSCOPY FLX DX W/COLLJ SPEC WHEN PFRMD 06/06/2013 COLONOSCOPY performed by Xavi Aquino MD at [facility] ??? HI ESOPHAGOGASTRODUODENOSCOPY TRANSORAL DIAGNOSTIC 06/06/2013 ESOPHAGOGASTRODUODENOSCOPY performed by Xavi Aquino MD at [facility] ??? HI HYSTEROSCOPY,W/ENDO BX N/A 08/11/2016 HYSTEROSCOPY WITH DILATATION AND CURETTAGE SUCTION performed by Dustin Bill MD at [facility] ??? HI ORAL SURGERY Current Outpatient Medications on File Prior to Visit Medication Sig Dispense Refill ??? PNV Comb No.59/Iron/FA/DHA (-DHA ORAL) Take by mouth. ??? SUMAtriptan (IMITREX) 100 mg tablet TAKE 1 TABLET BY MOUTH ONCE WITH ONSET OF A MIGRAINE ATTACK, MAY REPEAT AFTER 2 HOURS. NOT TO EXCEED 2 TABLETS IN 24 HOURS 9 Tablet 1 ??? sertraline (ZOLOFT) 50 mg tablet Take 1 Tablet (50 mg) by mouth daily. 50 Tablet 4 ??? zolpidem (AMBIEN) 5 mg tablet TAKE 1 TABLET BY MOUTH AT BEDTIME NEEDED FOR SLEEP 30 Tablet 2 No current facility-administered medications on file prior to visit. No Known Allergies Family History Problem Relation Name Age of Onset ??? Colon Polyps Maternal Grandmother ??? Hypertension Father Jone [place] ??? No Known Problems Mother ??? Colon Cancer Paternal Grandfather Sergio [place] ??? Healthy Son Bob Alarcon REVIEW OF SYSTEMS: Constitutional: Negative for fever and malaise/fatigue. No significant unexplained changes in weight. HEENT: Negative for congestion. Negative for recent vision changes. Respiratory: Negative for shortness of breath. Cardiovascular: Negative for chest pain, Negative for palpitation Gastrointestinal: Negative for abdominal pain, no changes in bowel habits. Genitourinary: Negative for dysuria, urgency, or incontinence. Musculoskeletal:negative for back pain, muscle ache or joint pain. Neurological: Negative for dizziness or weakness. CULLET TRUCKER: normal menses, no abnormal bleeding, pelvic pain or discharge, no breast pain or new or enlarging lumps on self exam. PHYSICAL EXAM: BP 102/70 (BP Location: Left arm, Patient Position (BP): Sitting, BP Cuff Size: Adult) Wt 74.4 kg(164 lb) LMP 10/09/2019 No BMI 23.53 kg/m?? Constitutional: The patient appears well, in no distress. HENT: NCAT, no thyromegaly palpated. CV: regular rate and rhythm, no murmurs auscultated Resp: Lungs are clear to auscultation bilaterally. GI/Abdomen: soft without tenderness, guarding, mass or organomegaly. Musculoskeletal/Extremities: nontender, no edema. Psych: Mood, affect, and thought content normal. Skin: no rashes or lesions PELVIC EXAM: normal external genitalia, vulva, vagina, cervix, uterus and adnexa ASSESSMENT: -- Confirmation of -- 5 weeks by dates --cervical cancer screening PLAN: --hcg and progesterone ordered --pap performed -- Will plan for genetic testing at 10 wks due to Trisomy 18 with last . Return to the office in 2 weeks. documented in this encounter Plan of Treatment Upcoming Encounters Date Type Department Care Team (Late st Contact Info) Description 10/08/2024 9:45 AM CDT Office Visit [facility] LAMINATOR - [address] [address] Terrie Manning MD [facility] [address] [address] documented as of this encounter Procedures Procedure Name Priority Date/Time Associated Diagnosis Comments CERV/VAG CYTO AGE BASED SCREEN PAP Routine 11/13/2019 11:31 AM CDT Screening for cervical cancer documented in this encounter Results * PROGESTERONE (11/13/2019 11:33 AM CDT) PROGESTERONE 14.10 ng/mL 11/13/2019 12:36 PM CDT [facility] [employer] [facility] Blood Venipuncture / Unknown 11/13/2019 11:33 AM CDT 11/13/2019 11:41 AM CDT Narrative [facility] - 11/13/2019 12:36 PM CDT Reference Ranges: Healthy women Follicular phase 0.06 - 0.90 ng/mL Ovulation phase ??0.12 - 12.0 ng/mL Luteal phase ? 1.83 - 23.9 ng/mL Postmenopause ?? <0.50 ng/mL Healthy women 1st trimester 11.0 - 44.3 ng/mL 2nd trimester 25.4 - 83.3 ng/mL 3rd trimester 58.7 - 214 ng/mL Terrie Manning MD CHEMISTRY ORDERABL ES [facility]# [id number] [address] [place] [address] * (ABNORMAL) HCG QUANTITATIVE, BLOOD (11/13/2019 11:33 AM CDT) HCG QUANT, BLOOD 6,383.0(H) <5.0 mIU/mL 11/13/2019 12:40 PM CDT [facility] Blood Venipuncture / Unknown 11/13/2019 11:33 AM CDT 11/13/2019 11:41 AM CDT [facility] - 11/13/2019 12:40 PM CDT Result of 5 - 25 mIU/mL is indeterminant for , repeat of test recommended in 48 hours. Reference Range: Gestational Age ? HCG Concentration 3 ??Weeks ?5.8 - 71.2 ? mIU/mL 4 ??Weeks ?9.5 - 750 ?mIU/mL 5 ??Weeks ?217 - 7138 ? mIU/mL 6 ??Weeks ?158 - 31,795 ?? mIU/mL 7 ??Weeks ? 3697 - 163,563 ??mIU/mL 8 ??Weeks ? 32,065 - 149,571 ??mIU/mL 9 ??Weeks ? 63,803 - 151,410 ??mIU/mL 10 Weeks ? 46,509 - 186,977 ??mIU/mL 12 Weeks ? 27,832 - 210,612 ??mIU/mL 14 Weeks ? 13,950 - 62,530 ?? mIU/mL 15 Weeks ? 12,039 - 70,971 ?? mIU/mL 16 Weeks ? 9040 - 56,451 ?? mIU/mL 17 Weeks ? 8175 - 55,868 ?? mIU/mL 18 Weeks ? 8099 - 58,176 ?? mIU/mL Heterophile antibodies and other interfering substances in the serum of some patients may cause a false-positive result in this assay. Before making a diagnosis of malignancy or ectopic , the result of this test should be confirmed with a urine HCG test and correlated with other clinical evidence. Terrie Manning MD CHEMISTRY ORDERABL ES Performing Organization Address City/State/[facility] Co de Phone Number [facility]# [id number] [address] [place] [address] * (ABNORMAL) CERV/VAG CYTO AGE BASED SCREEN PAP (11/13/2019 11:31 AM CDT) COMMENT (PAP): SEE COMMENT 0 12:58 PM CDT [facility] Comment: This order for age-based cervical cancer and STI screening follows ACOG guidelines(PB 168, 140, MJC922). See individual assays for performing site location. CLINICAL INFORMATION Information not provided 11/19/2019 12:58 PM CDT [facility] LAST MENSTRUAL PERIOD INFORMATION NOT PROVIDED 11/19/2019 12:58 PM CDT [facility] PREV PAP: INFORMATION NOT PROVIDED 11/19/2019 12:58 PM CDT [facility] PREV BX: INFORMATION NOT PROVIDED 11/19/2019 12:58 PM CDT [facility] SOURCE Endocervix 11/19/2019 12:58 PM CDT [facility] ADEQUACY: SEE COMMENT 11/19/2019 12:58 PM CDT [facility] Comment: Satisfactory for evaluation. Endocervical/transformation zone component present. Age and/or menstrual status not provided GENERAL CATEGORIZATION: EPITHELIAL CELL ABNORMALITY(A) 11/19/2019 12:58 PM CDT [facility] PAP INTERP Atypical Squamous Cells of Undetermined Significance (ASC-US)(A) 11/19/2019 12:58 PM CDT [facility] COMMENT SEE COMMENT 11/19/2019 12:58 PM CDT [facility] Comment: This Pap test has been evaluated with computer assisted technology. Suggest clinical correlation and follow-up as clinically appropriate [facility] LAB TECHNICIAN: SEE COMMENT 2019 12:58 PM CDT [facility] Comment: MMW, CT(ASCP) CT screening location: [place] [address] [place] [address] PATHOLOGIST SEE COMMENT 11/19/2019 12:58 PM CDT [facility] Comment: Misha Goss M.D., Board Certified in Anatomic Pathology and Cytopathology. (electronic signature) EXPLANATORY NOTE SEE COMMENT 020 12:58 PM CDT [facility] Comment: EXPLANATORY NOTE: The Pap is a [...] information. HPV E6/E7 Not Detected Not Detected 11/19/2019 12:58 PM CDT [facility] Comment: This test was performed using the APTIMA HPV Assay ([employer] This assay detects E6/E7 viral messenger RNA (mRNA) from 14 high-risk HPV types (16,18,31,33,35,39,45,51,52,56,58,59,66,68). The analytical performance characteristics of this assay have been determined by [facility]. The modifications have not been cleared or approved by the FDA. This assay has been validated pursuant to the CLIA regulations and is used for clinical purposes. Genital SWAB OF ENDOCERVIX / Unknown Collection / Unknown 11/13/2019 11:31 AM CDT 11/13/2019 7:26 PM CDT Narrative [facility] - 11/19/2019 12:58 PM CDT Performing Organization Information: ?Site ID: [place] ?Name: [facility] ?Address: [address] [place] [address] [place] [address] ?Director: Vitaly Hardy D.O., MPH ?Site ID: ?Name: [facility] ?Address: [facility] [place] [address] ?Director: Sarah Jay Terrie Manning MD PATHOLOGY/CYTOLOGY ORDERABLES [facility] [phone] documented in this encounter Visit Diagnoses Diagnosis Encounter for confirmation of test result with physical examination- Primary examination or test, unconfirmed Screening for cervical cancer Screening for malignant neoplasm of the cervix documented in this encounter Care Teams Rehab Tech Relationship Specialty Start Date End Date Terrie Manning MD PCP - General Obstetrics and Gynecology 05/27/13 documented as of this encounter
--- OUTSIDE RECORDS SUMMARY | 2024-05-27 15:10 | XMS_ITS | Encounter Summary ---
Author Organization [facility] Address 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 Pt tolerated injection well and left the office in stable condition. * Terrie Baca MD - 02/26/2020 12:44 PM CDT 16-20 Weeks LOUIE SUBJECTIVE: Angela Isabell Alarcon reports no abnormal vaginal discharge or abdominal cramping. FM: Yes. No unusual complaints for this stage of . Discussed anatomy scan. OBJECTIVE: See flowsheet. ASSESSMENT: 34 y.o. at 20w0d wks with Estimated Date of Delivery: 07/15/20 NOB labs and genetic screening reviewed and WNL PLAN: Anatomy scan normal. Repeat c/s at 36 wks for low vertical. Prior fetus with Trisomy 18. Anxiety-Cont Zoloft. Routine care RTC 4 wks Pt to call or return with further questions or concerns Terrie Baca MD documented in this encounter Miscellaneous Notes * Addendum Note - Mariann Martin - 02/26/2020 3:17 PM CDTAddended by: MARIANN MARTIN on: 02/26/2020 03:17 PM Modules accepted: Orders documented in this encounter Plan of Treatment Upcoming Encounters Date Type Department Care Team (Late st Contact Info) Description 10/08/2024 9:45 AM CDT Office Visit [facility]3] PRECISE WINDER - Medical [facility] [address] [facility] [address] [place] [address] Terrie Baca MD [address] 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
--- OUTSIDE RECORDS SUMMARY | 2024-05-27 15:10 | XMS_ITS | Encounter Summary ---
Author Organization [facility] Address [address] [place] [address] Care Team Providers Care Inseam Leveler Name Role Phone Terrie Manning MD Primary Care Provider +1- [phone] Encounter Details Date Type Department Care Team (Late Contact Info) Description 11/13/2019 Orders Only [facility] POCKET MARKER - Medical [address] [address] Terrie Manning MD [address] [place] [address] Social History Tobacco Use Types [...] Office Visit [facility] POCKET MARKER - [facility] [address] [address] Terrie Manning MD [address] [facility] [address] [address] documented as of this encounter Visit Diagnoses Not on filedocumented in this encounter Care Teams Inseam Leveler Relationship Specialty Start Date End Date Terrie Manning MD PCP - General Obstetrics and Gynecology 05/27/13 documented as of this encounter
--- OUTSIDE RECORDS SUMMARY | 2024-05-27 15:10 | XMS_ITS | Encounter Summary ---
Author Organization [facility] Address [address] [place] [address] Care Team Providers Care Promotor Group Ticket Sales Name Role Phone Terrie Manning MD Primary Care Provider +1- [phone] Reason for Visit * Reason Onset Date Comments K[facility]\rn call 11/06/2019 Encounter Details Date Type Department Care Team (Late st Contact Info) Description 11/06/2019 Telephone [facility] TERRAZZO LAYER - Medical [address] [address] Terrie Manning MD [facility] [address] [address] KDL\rn call Social History Tobacco Use Types Packs/Day Years [...] have Coronavirus / COVID-19? No / Unsure 11/06/2019 2:03 PM CDT documented as of this encounter Miscellaneous Notes * Telephone Encounter - Hayley Matute LPN - 11/06/2019 2:07 PM CDT Patient calling with +UPT. LMP: 10/08. Patient with h/o SAB and Trisomy 18 with last resulting in infant . Patient is due for her WWE. Patient scheduled for confinement appointment with [facility] on 11/12. Patient advised to call with concerns prior to that appointment. Patient verbalizes understanding. * Telephone Encounter - Beth Obrien - 11/06/2019 1:35 PM CDT Patient needs a nurse to call her. documented in this encounter Plan of Treatment Upcoming Encounters Date Type Department Care Team (Late st Contact Info) Description 10/08/2024 9:45 AM CDT Office Visit [facility] TERRAZZO LAYER - Medical [facility] [address] [address] [address] Terrie Manning MD [facility] [address] [place] [address] documented as of this encounter Visit Diagnoses Not on filedocumented in this encounter Care Teams Promotor Group Ticket Sales Relationship Specialty Start Date End Date Terrie Manning MD PCP - General Obstetrics and Gynecology 05/27/13 documented as of this encounter
--- OUTSIDE RECORDS SUMMARY | 2024-05-27 15:10 | XMS_ITS | Encounter Summary ---
Author Organization [facility] Address [address] [place] [address] Care Team Providers Care Retread Builder Name Role Phone Terrie Manning MD Primary Care Provider +1- [phone] Reason for Visit * Reason Comments Medication Refill Encounter Details Date Type Department Care Team (Late st Contact Info) Description 07/21/2019 Refill [facility] ROTARY PEEL OVEN TENDER - Medical [address] [address] Terrie Manning MD [address] [place] [address] Social History Tobacco Use Types Packs/Day Years Used Date Smoking Tobacco: Never Smokeless Tobacco: Never Alcohol Use Standard Drinks/Week Comments No 0 (1 standard drink = 0.6 oz pur e alcohol) Sex and Gender Information Value Date Recorded Sex Assigned at Not on file Gender Identity Not on file Sexual Orientation Not on file documented as of this encounter Miscellaneous Notes * Telephone Encounter - Mariann Martin - 07/22/2019 8:31 AM CST Approved and sent. ENTER SUPERVISOR documented in this encounter Plan of Treatment Upcoming Encounters Date Type Department Care Team (Late st Contact Info) Description 10/08/2024 9:45 AM CDT Office Visit [facility] ROTARY PEEL OVEN TENDER - [facility] [address] [address] Terrie Manning MD [address] [facility] [address] [place] [address] documented as of this encounter Visit Diagnoses Not on filedocumented in this encounter Care Teams Retread Builder Relationship Specialty Start Date End Date Terrie Manning MD PCP - General Obstetrics and Gynecology 05/27/13 documented as of this encounter
--- OUTSIDE RECORDS SUMMARY | 2024-05-27 15:10 | XMS_ITS | Encounter Summary ---
Author Organization [facility] Address [address] [place] [address] Care Team Providers Care Beauty Culturist Apprentice Name Role Phone Terrie Baca MD Primary Care Provider +1- [phone] Reason for Visit * Reason Onset Date Comments Results 12/28/2019 Encounter Details Date Type Department Care Team (Late st Contact Info) Description 12/28/2019 Telephone [facility] (Former[facility]) LICENSE DISTRIBUTOR - Medical [address] [address] Terrie Baca MD [address] [place] [address] Results Social History Tobacco Use [...] have Coronavirus / COVID-19? No / Unsure 12/18/2019 10:13 AM CDT documented as of this encounter Miscellaneous Notes * Telephone Encounter - Terrie Baca MD - 12/28/2019 11:02 AM CDT Pt called with the results of her genetic testing and gender. 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 Normal genetic testing this . Terrie Baca MD documented in this encounter Plan of Treatment Upcoming Encounters Date Type Department Care Team (Late st Contact Info) Description 10/08/2024 9:45 AM CDT Office Visit [facility] ([facility]) LICENSE DISTRIBUTOR - [facility] [address] [place] [address] [address] Terrie Baca MD [address] [place] [address] documented as of this encounter Visit Diagnoses Not on filedocumented in this encounter Care Teams Beauty Culturist Apprentice Relationship Specialty Start Date End Date Terrie Baca MD PCP - General Obstetrics and Gynecology 05/27/13 documented as of this encounter
--- OUTSIDE RECORDS SUMMARY | 2024-05-27 15:10 | XMS_ITS | Encounter Summary ---
Author Organization [facility] Address [address] [place] [address] Care Team Providers Care Lining Scrubber Name Role Phone Terrie Baca MD Primary Care Provider +1- [phone] Encounter Details Date Type Department Care Team (Latest Contact Info) Description 11/27/2019 2:30 PM CDT Ancillary Procedure [facility] MANAGER IT TRAINING - [facility] [address] [address] Encounter to determine viability of , fetus 1 Social History Tobacco Use Types Packs/Day Years [...] have Coronavirus / COVID-19? No / Unsure 11/27/2019 2:26 PM CDT documented as of this encounter Plan of Treatment Upcoming Encounters Date Type Department Care Team ( Contact Info) Description 10/08/2024 9:45 AM CDT Office Visit [facility] MANAGER IT TRAINING - Medical [place] [address] [facility] [address] [place] [id number] Terrie Baca MD [address] [facility] [address] [address] documented as of this encounter Procedures Procedure Name Priority Date/Time Associated Diagnosis Comments US OB TRANSVAGINAL Routine 11/27/2019 3: 07 PM CDT Encounter to determine viability of , fetus 1 documented in this encounter Results * US OB TRANSVAGINAL (11/27/2019 3:07 PM CDT) Anatomical Region Laterality Modality Pelvis Ultrasound Study GA Study Date Study LEXIE Working LEXIE (Source) Feta l Weight (Method) 11/27/2019 07/15/2020 Result Name Value Comments CRL (Hadlock) mm Sac Diameter cm FHR bpm Impressions 11/27/2019 9:12 PM CDT INDICATION: Dating/Viability, History of prior fetus with Trisomy 18 Gestational age: 7w0d LMP:Patient's last menstrual period was 10/09/2019. LEXIE (LMP):07/15/2020 EGA by u/s: 7w2d LEXIE (AUA):07/13/2020 FHR:138 ROSEMARIE:Yes [id number]; subclinical LMP LEXIE consistent with u/s today:Yes Final LEXIE: 07/15/2020 Recommendation: Viable intra-uterine consistent with dates. Follow up in 4 weeks or sooner if clinically indicated. Terrie Baca MD Narrative Procedure Note Terrie Baca MD - 11/27/2019 IMPRESSION INDICATION: Dating/Viability, History of prior fetus with Trisomy 18 Gestational age: 7w0d LMP:Patient's last menstrual period was 10/09/2019. LEXIE (LMP):07/15/2020 EGA by u/s: 7w2d LEXIE (AUA):07/13/2020 FHR:138 ROSEMARIE:Yes [id number]; subclinical LMP LEXIE consistent with u/s today:Yes Final LEXIE: 07/15/2020 Recommendation: Viable intra-uterine consistent with dates.Follow up in 4 weeks or sooner if clinically indicated. Terrie Baca MD Terrie Baca MD ORDERABLES documented in this encounter Visit Diagnoses Diagnosis Encounter to determine viability of , fetus 1 documented in this encounter Care Teams Lining Scrubber Relationship Specialty Start Date End Date Terrie Baca MD PCP - General Obstetrics and Gynecology 05/27/13 documented as of this encounter
--- OUTSIDE RECORDS SUMMARY | 2024-05-27 15:10 | XMS_ITS | Encounter Summary ---
Author Organization [facility] Address [address] [place] [address] Care Team Providers Care Zigzag Tunnel Elastic Operator Name Role Phone Terrie Baca MD Primary Care Provider +1- [phone] Reason for Visit * Reason Comments Initial Visit Encounter Details Date Type Department Care Team (Late st Contact Info) Description 11/27/2019 3:00 PM CDT Initial [facility] QUALITY TECHNICIAN - Medical [address] [address] Terrie Baca MD [address] [place] [address] History of chromosomal abnormality (Primary Dx); Anxiety state; 7 weeks gestation of Social History Tobacco Use [...] Sign Reading Time Taken Comments Blood Pressure 102/66 11/27/2019 3:12 PM CDT Pulse - - Temperature - - Respiratory Rate - - Oxygen Saturation - - Inhaled Oxygen Concentration - - Weight 72.9 kg (160 lb 12.8 oz) 11/27/2019 3:12 PM CDT Height - - Body Mass Index 23.07 04/01/2019 6:25 AM CDT documented in this encounter Progress Notes * Terrie Baca MD - 11/27/2019 8:19 PM CDT 7 Weeks Initial OB SUBJECTIVE: Angela Whyte Ivana reports no abnormal vaginal bleeding or abdominal cramping. No unusual complaints for this stage of . OBJECTIVE: See flowsheet. ASSESSMENT: 33 y.o. at 7w0d wks with Estimated Date of Delivery: Estimated Date of Delivery: 07/15/20 NOB labs and genetic screening discussed. PLAN: U/S today confirms dating and viability of . H/O Trisomy-Genetic testing at 10 weeks Prior c/s with T incision-Repeat at 36 wks We discussed her course and restrictions and instructions of her . Will get OB labs at her next appt. Routine care RTC 4 wks Pt to call or return with further questions or concerns. Terrie Baca MD documented in this encounter Plan of Treatment Upcoming Encounters Date Type Department Care Team (Late st Contact Info) Description 10/08/2024 9:45 AM CDT Office Visit [facility] QUALITY TECHNICIAN - [facility] [address] [address] Terrie Baca MD [address] [facility] [address] [place] [address] documented as of this encounter Visit Diagnoses Diagnosis History of chromosomal abnormality- Primary Personal history of other (corrected) congenital malformations Anxiety state Anxiety state, unspecified 7 weeks gestation of documented in this encounter Care Teams Zigzag Tunnel Elastic Operator Relationship Specialty Start Date End Date Terrie Baca MD PCP - General Obstetrics and Gynecology 05/27/13 documented as of this encounter
--- OUTSIDE RECORDS SUMMARY | 2024-05-27 15:10 | XMS_ITS | Encounter Summary ---
Author Organization [facility] Address [address] [place] [address] Care Team Providers Care Cv/Cvn Cv Tsc System Operator Name Role Phone Terrie Manning MD Primary Care Provider +1- [phone] Encounter Details Date Type Department Care Team (Late st Contact Info) Description 09/03/2019 Orders Only [facility] METER REPAIRER - Medical [address] [address] Terrie Manning MD [address] [place] [address] Social History Tobacco Use Types [...] have Coronavirus / COVID-19? No / Unsure 08/23/2019 2:33 PM CDT documented as of this encounter Plan of Treatment Upcoming Encounters Date Type Department Care Team (Late st Contact Info) Description 10/08/2024 9:45 AM CDT Office Visit [facility] METER REPAIRER - Medical [facility] [address] [address] Terrie Manning MD [address] [facility] [address] [address] documented as of this encounter Visit Diagnoses Not on filedocumented in this encounter Care Teams Cv/Cvn Cv Tsc System Operator Relationship Specialty Start Date End Date Terrie Manning MD PCP - General Obstetrics and Gynecology 05/27/13 documented as of this encounter
--- OUTSIDE RECORDS SUMMARY | 2024-05-27 15:10 | XMS_ITS | Encounter Summary ---
Author Organization [facility] Address [address] [facility] Attn: [place] [address] Care Team Providers Care Oil And Gas Drafter Name Role Phone Terrie Manning MD Primary Care Provider +1- [phone] Encounter Details Date Type Department Care Team (Latest Contact Info) Description 08/23/2019 Travel Social History Tobacco Use Types Packs/Day [...] AM CDT Office Visit [facility] SCUBA INSTRUCTOR - Medical [facility] [address] [address] [address] Terrie Manning MD [address] [facility] [address] [address] documented as of this encounter Visit Diagnoses Not on filedocumented in this encounter Care Teams Oil And Gas Drafter Relationship Specialty Start Date End Date Terrie Manning MD PCP - General Obstetrics and Gynecology 05/27/13 documented as of this encounter
--- OUTSIDE RECORDS SUMMARY | 2024-05-27 15:10 | XMS_ITS | Encounter Summary ---
Author Organization [facility] Address [address] [place] [address] Care Team Providers Care Car Driver Name Role Phone Terrie Manning MD Primary Care Provider +1- [phone] Encounter Details Date Type Department Care Team (Latest Contact Info) Description 12/18/2019 11:47 AM CDT - 12/18/2019 11:59 PM T Hospital Encounter [facility] Medical [place] [address] [place] [address], [place] [address] Terrie Manning MD [facility] [address] [facility] [address] [address] Discharge Disposition: Home or Self [...] Date sertraline (ZOLOFT) 50 mg tablet Take 50 mg by mouth daily. 04/13/2020 documented as of this encounter Plan of Treatment Upcoming Encounters Date Type Department Care Team (Late st Contact Info) Description 10/08/2024 9:45 AM CDT Office Visit [facility] ALARM TECHNICIAN - Medical [facility] [address] [address] Terrie Manning MD [address] 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 , 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 History of chromosomal abnormality Encounter for screening of mother RUBELLA IGG Routine 12/18/2019 12:04 PM CDT 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 , 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 History of chromosomal abnormality Encounter for screening of mother CBC WITH DIFFERENTIAL Routine 12/18/2019 12:04 PM CDT 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 , 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 History of chromosomal abnormality Encounter for screening of mother RPR Routine 12/18/2019 12:04 PM CDT 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 , 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 History of chromosomal abnormality Encounter for screening of mother OBSTETRIC PANEL Routine 12/18/2019 12:04 PM CDT 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 , 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 History of chromosomal abnormality Encounter for screening of mother TSH Routine 12/18/2019 12:04 PM CDT 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 Values obtained with different assay methods cannot be used interchangeably. Non- Reactive results does not rule out HIV infection. If acute HIV-1 infection is suspected, submit plasma specimen for HIV-1 RNA quantification test (HIVQU). Terrie Manning MD CHEMISTRY ORDERABL ES [facility] Squee [facility] CLIA# [id number] 5 [facility] [place] [address] * TYPE AND SCREEN, (12/18/2019 12:04 PM CDT) ABO GROUP O 12/18/2019 12:04 PM CDT [facility] Squee [facility] RH (D) TYPE Positive 12/18/2019 12:04 PM CDT [facility] Squee [facility] ANTIBODY SCREEN Negative 12/18/2019 12:04 PM CDT [facility] LABORATORY [facility] Blood Venipuncture / Unknown 12/18/2019 12:04 PM CDT 12/18/2019 12:13 PM CDT Terrie Manning MD BLOOD BANK ORDERAB LES Performing Organization Address [facility]/ZIP Co de Phone Number [facility] Squee [facility]# [id number] [address] [place] [address] * RUBELLA IGG (12/18/2019 12:04 PM CDT) Pathologist [facility] RUBELLA IGG IMMUNE Immune - Positive 12/18/2019 12:54 PM CDT [facility] LABORATORY [facility] Blood Venipuncture / Unknown 12/18/2019 12:04 PM CDT 12/18/2019 12:13 PM CDT Narrative [facility] LABORATORY [facility] - 12/18/2019 12:54 PM CDT A positive result suggests response to immunization or prior exposure to the virus. Terrie Manning MD CHEMISTRY ORDERABL ES Performing Organization Address [facility] Co de Phone Number [facility] Squee [facility]# [id number] [address] [place] [address] * RPR (12/18/2019 12:04 PM CDT) Pathologist [facility] RPR NON-REACTI VE Non-Reacti ve 12/18/2019 2:17 PM CDT [facility] Blood Venipuncture / Unknown 12/18/2019 12:04 PM CDT 12/18/2019 12:13 PM CDT Terrie Manning MD CHEMISTRY ORDERABL ES Performing Organization Address City/[facility]/ZIP Co de Phone Number [facility] Squee [facility]# [id number] [address] [place] [address] * HEPATITIS B SURFACE ANTIGEN (12/18/2019 12:04 PM CDT) Pathologist [facility] HEPATITIS B SURFACE AG NON-REACTI VE Non-reacti ve 12/18/2019 1:42 PM CDT [facility] LABORATORY SERVICES [facility] Blood Venipuncture / Unknown 12/18/2019 12:04 PM CDT 12/18/2019 12:13 PM CDT Terrie Manning MD CHEMISTRY ORDERABL ES [facility] LABORATORY SERVICES [facility] CLIA# [id number] 5 [facility] [place] [address] * (ABNORMAL) CBC WITH DIFFERENTIAL (12/18/2019 12:04 PM CDT) WBC 6.0 4.0 - 9.8 K/uL 12/18/2019 12:30 PM CDT [facility] - [facility] RBC 3.98 3.90 - 4.90 M/uL 12/18/2019 12:30 PM CDT [employer] [facility] - [facility] HEMOGLOBIN 11.9 11.8 - 14.8 g/dL 12/18/2019 12:30 PM CDT [employer] [facility] HEMATOCRIT 36.7 35.5 - 44.0 % 12/18/2019 12:30 PM CDT [employer] [facility] MCV 92.2 82.0 - 99.0 fL 12/18/2019 12:30 PM CDT [employer] [facility] MCH 29.9 27.2 - 32.6 pg 12/18/2019 12:30 PM CDT [employer] [facility] MCHC 32.4 31.5 - 35.5 g/dL 12/18/2019 12:30 PM CDT [employer] [facility] RDW 12.3 11.5 - 14.5 % 12/18/2019 12:30 PM CDT [employer] [facility] RDW-STDEV 41.2 37.1 - 48.7 fL 12/18/2019 12:30 PM CDT [employer] [facility] PLATELETS 327 140 - 350 K/uL 12/18/2019 12:30 PM CDT [employer] [facility] MPV 9.1(L) 9.3 - 12.4 fL 12/18/2019 12:30 PM CDT [facility] LAB[facility]ATORY SERVICES - [facility] NEUTROPHILS 66 % 12/18/2019 12:30 PM CDT [facility] LAB[facility]ATORY SERVICES - [facility] LYMPHOCYTES 25 % 12/18/2019 12:30 PM CDT [facility] LAB[facility] - [facility] MONOCYTES 8 % 12/18/2019 12:30 PM CDT [facility] LAB[facility]ATORY SERVICES - [facility] EOSINOPHILS 1 % 12/18/2019 12:30 PM CDT [facility] LABORATORY SERVICES [facility] BASOPHILS 0 % 12/18/2019 12:30 PM CDT [facility] LABORATORY SERVICES - [facility] IMMATURE GRANULOCYTES 0 % 12/18/2019 12:30 PM CDT [facility] LABORATORY SERVICES [facility] NEUTROPHIL ABSOLUTE 3.94 1.90 - 7.00 K/uL 12/18/2019 12:30 PM CDT [facility] LABORATORY SERVICES [facility] LYMPHOCYTE ABSOLUTE 1.51 0.70 - 4.50 K/uL 12/18/2019 12:30 PM CDT [facility] LABORATORY [facility] MONOCYTE ABSOLUTE 0.50 0.10 - 1.30 K/uL 12/18/2019 12:30 PM CDT [facility] LABORATORY [facility] EOSINOPHIL ABSOLUTE 0.03 0.00 - 0.70 K/uL 12/18/2019 12:30 PM CDT [facility] LABORATORY SERVICES - [facility] BASOPHILS ABSOLUTE 0.02 0.00 - 0.20 K/uL 12/18/2019 12:30 PM CDT [facility] LABORATORY [facility] IMMATURE GRANULOCYTES ABSOLUTE 0.01 0.00 - 0.03 K/uL 12/18/2019 12:30 PM CDT [facility] LABORATORY [facility] Blood Venipuncture / Unknown 12/18/2019 12:04 PM CDT 12/18/2019 12:13 PM CDT Terrie Manning MD HEMATOLOGY ORDERAB LES [facility]# [id number] [address] [facility] [place] [address] * (ABNORMAL) TSH (12/18/2019 12:04 PM CDT) TSH 0.09(L) 0.27 - 4.20 uIU/mL 12/18/2019 12:58 PM CDT [facility] LABORATORY [facility] Blood Venipuncture / Unknown 12/18/2019 12:04 PM CDT 12/18/2019 12:13 PM CDT Terrie Manning MD CHEMISTRY ORDERABL ES [facility] LABORATORY [facility] CLIA# [id number] [address] [facility] [place] [address] documented in this encounter Visit Diagnoses Diagnosis 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
--- OUTSIDE RECORDS SUMMARY | 2024-05-27 15:10 | XMS_ITS | Encounter Summary ---
Author Organization [facility] Address [address] [place] [address] Care Team Providers Care Ballistic Expert Name Role Phone Terrie Mannnig MD Primary Care Provider +1- [phone] Reason for Visit * Reason Onset Date Comments Medical Question/KDL 09/20/2019 Encounter Details Date Type Department Care Team (Late st Contact Info) Description 09/20/2019 Telephone [facility] CONTOUR PATH TAPE MILL OPERATOR - Medical [address] [address] [facility] [address] [place] [address] Medical Question/KDL Social History Tobacco Use Types Packs/Day Years [...] or suspected to have Coronavirus / COVID-19? Unable to assess 09/20/2019 9:08 AM CDT documented as of this encounter Miscellaneous Notes * Telephone Encounter - Moises Mercedes RN - 09/20/2019 9:10 AM CDT Pt calling with c/o urinary frequency and burning since overnight. She does also have lower back pain, but she denies fever. Pt scheduled for a video visit with KR this morning. * Telephone Encounter - Apple Head - 09/20/2019 9:04 AM CDT Pt needs a nurse to give her a call. documented in this encounter Plan of Treatment Upcoming Encounters Date Type Department Care Team (Late st Contact Info) Description 10/08/2024 9:45 AM CDT Office Visit [facility] CONTOUR PATH TAPE MILL OPERATOR - [facility] [address] [address] [address] Terrie Manning MD [address] [place] [address] documented as of this encounter Visit Diagnoses Not on filedocumented in this encounter Care Teams Ballistic Expert Relationship Specialty Start Date End Date Terrie Manning MD PCP - General Obstetrics and Gynecology 05/27/13 documented as of this encounter
--- OUTSIDE RECORDS SUMMARY | 2024-05-27 15:10 | XMS_ITS | Encounter Summary ---
Author Organization [facility] Address [address] [place] [address] Care Team Providers Care Terminal Superintendent Name Role Phone Terrie Manning MD Primary Care Provider +1- [phone] Encounter Details Date Type Department Care Team (Late st Contact Info) Description 02/13/2020 Abstract [facility] DIRECTOR OF PRODUCT DESIGN - Medical [address] [address] Terrie Manning MD [address] [place] [address] Social History Tobacco Use Types [...] Description 10/08/2024 9:45 AM CDT Office Visit [facility] DIRECTOR OF PRODUCT DESIGN - Medical [facility] [address] [address] Terrie Manning MD [address] [facility] [address] [address] documented as of this encounter Visit Diagnoses Not on filedocumented in this encounter Care Teams Terminal Superintendent Relationship Specialty Start Date End Date Terrie Manning MD PCP - General Obstetrics and Gynecology 05/27/13 documented as of this encounter
--- OUTSIDE RECORDS SUMMARY | 2024-05-27 15:10 | XMS_ITS | Encounter Summary ---
Author Organization [facility] Address [address] [place] [address] Care Team Providers Care Box Estimator Name Role Phone Terrie Baca MD Primary Care Provider +1- [phone] Reason for Visit * Reason Comments Urinary Pain Encounter Details Date Type Department Care Team (Late st Contact Info) Description 09/20/2019 10:00 AM CDT Video Visit [facility] MOLDED GOODS CONTROLS OPERATOR - Medical [facility] [address] [address] [address] Jackelyn Maciel, SULFATE DRIER MACHINE OPERATOR [address] [facility] [address] [address] Acute cystitis with hematuria (Primary Dx) Social History Tobacco Use Types [...] Sign Reading Time Taken Comments Blood Pressure - - Pulse - - Temperature - - Respiratory Rate - - Oxygen Saturation - - Inhaled Oxygen Concentration - - Weight 70.3 kg (155 lb) 09/20/2019 10:04 AM CDT Height - - Body Mass Index 22.24 04/01/2019 6:25 AM CDT documented in this encounter Progress Notes * Terrie Baca MD - 09/20/2019 2:00 PM CDT Patient information, assessment and plan reviewed. I agree with the major elements of this note andplan. Terrie Baca MD * Jackelyn Maciel NP - 09/20/2019 10:23 AM CDT This encounter was completed via two-way synchronous audio and video communication. Patient expressed understanding that using technology outside of [facility] has higher potential tointroduce privacy risks: Yes Patient's identity confirmed yes Patient gave verbal consent to have these services billed to their insurance and expressed understanding that co-insurance and deductible may apply - yes PATIENT: Angela Alarcon : 1985 (33 y.o.) DATE: 09/20/2019 Visit Type: Problem visit Chief Complaint Patient presents with ??? Urinary Pain HISTORY OF PRESENT ILLNESS Angela Alarcon is a 33 year old established pt presenting to the office with c/o sx of dysuria, urgency and frequency. Associated sx of hematuria as well. Sx started in the last 6-12 hours. Denies fever, chills or aches. PMSH reviewed no changes ROS: all systems reviewed and all positives listed above and the rest negative. The history is provided by the patient. Urinary Pain This is a new problem. The current episode started 6 to 12 hours ago. The problem occurs constantly. The problem has not changed since onset.Pertinent negatives include no chest pain, no abdominal pain, no headaches and no shortness of breath. Nothing aggravates the symptoms. Nothing relieves the sy mptoms. She has tried nothing for the symptoms. ALLERGIES & MEDICATIONS No Known Allergies Current Outpatient Medications Medication Sig Dispense Refill ??? nitrofurantoin (MACROBID) 100 mg capsule Take 1 Capsule (100 mg) by mouth 2 times daily for 7 days. 14 Capsule 0 ??? sertraline (ZOLOFT) 50 mg tablet Take 1 Tablet (50 mg) by mouth daily. 50 Tablet 4 ??? zolpidem (AMBIEN) 5 mg tablet TAKE 1 TABLET BY MOUTH AT BEDTIME NEEDED FOR SLEEP 30 Tablet 2 ??? SUMAtriptan (IMITREX) 100 mg tablet TAKE 1 TABLET BY MOUTH ONCE WITH ONSET OF A MIGRAINE ATTACK, MAY REPEAT AFTER 2 HOURS. DO NOT EXCEED 2 TABLETS IN 24 HOURS 9 Tablet 1 ??? [DISCONTINUED] sertraline (ZOLOFT) 50 mg tablet Take 1 Tablet (50 mg) by mouth daily. 90 Tablet1 No current facility-administered medications for this visit. REVIEW OF SYSTEMS Review of Systems Constitutional: Negative for fever, malaise/fatigue and weight loss. HENT: Negative for ear discharge and hearing loss. Eyes: Negative for blurred vision, pain, discharge and redness. Respiratory: Negative for cough, shortness of breath and wheezing. Cardiovascular: Negative for chest pain, palpitations and claudication. Gastrointestinal: Negative for abdominal pain, blood in stool, constipation, diarrhea, nausea and vomiting. Genitourinary: Positive for dysuria, frequency and urgency. Musculoskeletal: Negative for back pain and joint pain. Skin: Negative for itching and rash. Neurological: Negative for dizziness, tremors, focal weakness, weakness and headaches. Endo/Heme/Allergies: Negative for environmental allergies. Does not bruise/bleed easily. Psychiatric/Behavioral: Negative for depression. The patient does not have insomnia. Anxiety negative PHYSICAL EXAM There were no vitals filed for this visit. Physical Exam Constitutional: General: She is awake. Appearance: Normal appearance. HENT: Nose: Nose normal. Neck: Musculoskeletal: Normal range of motion. Pulmonary: Effort: Pulmonary effort is normal. Neurological: General: No focal deficit present. Mental Status: She is alert and oriented to person, place, and time. Psychiatric: Mood and Affect: Mood normal. Behavior: Behavior normal. Behavior is cooperative. AOx's 3, no distress. Lips pink and moist. DIAGNOSIS Encounter Diagnoses Code Name Primary? N30.01 Acute cystitis with hematuria Yes ASSESSMENT & PLAN 1) Pt presenting with sx of a UTI, a rx for Macrobid was sent to pharmacy. Instructed pt to push water, avoid caffeine, and can take OTC Azo pills for bladder spasm relief. Pt aware of good hygiene practices, encouraged pt to urinate before and after intercourse and drink plenty of water daily. S&S of pyelonephritis discussed pt to go to an Urgent Care with any symptoms. Pt to call office if sx persist. Office visit 15 minutes ORDERS Orders Placed This Encounter ??? nitrofurantoin (MACROBID) 100 mg capsule MEDICATION CHANGES Orders Placed This Encounter Medications ??? nitrofurantoin (MACROBID) 100 mg capsule Sig: Take 1 Capsule (100 mg) by mouth 2 times daily for 7 days. Dispense: 14 Capsule Refill: 0 FOLLOW UP Data Unavailable Jackelyn Maciel NP [facility] MOLDED GOODS CONTROLS OPERATOR [address] [phone] documented in this encounter Plan of Treatment Upcoming Encounters Date Type Department Care Team (Late st Contact Info) Description 10/08/2024 9:45 AM CDT Office Visit [facility] MOLDED GOODS CONTROLS OPERATOR [address] [phone] Terrie Baca MD [address] [place] [phone] documented as of this encounter Visit Diagnoses Diagnosis Acute cystitis with hematuria- Primary Acute cystitis documented in this encounter Care Teams Box Estimator Relationship Specialty Start Date End Date Terrie Baca MD PCP - General Obstetrics and Gynecology 05/27/13 documented as of this encounter
--- OUTSIDE RECORDS SUMMARY | 2024-05-27 15:10 | XMS_ITS | Encounter Summary ---
Author Organization [facility] Address [address] [facility] Attn: [place] [address] Care Team Providers Care Restaurant Hostess Name Role Phone Terrie Manning MD Primary Care Provider +1- [phone] Encounter Details Date Type Department Care Team (Latest Contact Info) Description 11/13/2019 Travel Social History Tobacco Use Types Packs/Day [...] Description 10/08/2024 9:45 AM CDT Office Visit [facility] LIMEROCK TOWER LOADER - Medical [facility] [address] [place] [phone] Terrie Manning MD [address] [facility] [address] [address] documented as of this encounter Visit Diagnoses Not on filedocumented in this encounter Care Teams Restaurant Hostess Relationship Specialty Start Date End Date Terrie Manning MD PCP - General Obstetrics and Gynecology 05/27/13 documented as of this encounter
--- OUTSIDE RECORDS SUMMARY | 2024-05-27 15:10 | XMS_ITS | Encounter Summary ---
Author Organization [employer] Address [address] [place] [address] Care Team Providers Care Plunket Nurse Name Role Phone Terrie Manning MD Primary Care Provider +1- [phone] Reason for Visit * Auth/Cert Specialty Diagnoses / Procedures Referred By Contac t [facility] [address] [facility], [place] [address] Referral ID Status Reason Start Date Expiration Date Visits Re quested Visits Authorized [id number] 1 1 Encounter Details Date Type Department Care Team (Latest Contact Info) Description 11/13/2019 11:30 AM CDT - 11/13/2019 11:59 PM CDT Hospital Encounter [facility] Laboratory Services Medical [place] [address] [facility], [place] [address] Terrie Manning MD [address] [address] Discharge Disposition: Home or Self Care [...] Sig Dispensed Refills Start Date End Date SUMAtriptan (IMITREX) 100 mg tablet TAKE 1 TABLET BY MOUTH ONCE WITH ONSET OF A MIGRAINE ATTACK, MAY REPEAT AFTER 2 HOURS. NOT TO EXCEED 2 TABLETS IN 24 HOURS 9 Tablet 1 10/25/2019 11/27/2019 sertraline (ZOLOFT) 50 mg tablet Take 1 Tablet (50 mg) by mouth daily. 50 Tablet 4 09/03/2019 11/27/2019 documented as of this encounter Plan of Treatment Upcoming Encounters Date Type Department Care Team (Late st Contact Info) Description 10/08/2024 9:45 AM CDT Office Visit [facility] VICE PRESIDENT NETWORK - Medical [address] [address] Terrie Manning MD [address] [place] [phone] documented as of this encounter Procedures Procedure Name Priority Date/Time Associated Diagnosis Comments PROGESTERONE Routine 11/13/2019 11:33 AM CDT Encounter for confirmation of test result with physical examination HCG QUANTITATIVE, BLOOD Routine 11/13/2019 11:33 AM CDT Encounter for confirmation of test result with physical examination documented in this encounter Results * PROGESTERONE (11/13/2019 11:33 AM CDT) PROGESTERONE 14.10 ng/mL 11/13/2019 12:36 PM CDT [facility] Blood Venipuncture / Unknown 11/13/2019 11:33 AM CDT 11/13/2019 11:41 AM CDT [facility] [employer] - 11/13/2019 12:36 PM CDT Reference Ranges: Healthy women Follicular phase 0.06 - 0.90 ng/mL Ovulation phase ??0.12 - 12.0 ng/mL Luteal phase ? 1.83 - 23.9 ng/mL Postmenopause ?? <0.50 ng/mL Healthy women 1st trimester 11.0 - 44.3 ng/mL 2nd trimester 25.4 - 83.3 ng/mL 3rd trimester 58.7 - 214 ng/mL Terrie Manning MD CHEMISTRY ORDERABL ES [facility]# [id number] [address] [place] [address] * (ABNORMAL) HCG QUANTITATIVE, BLOOD (11/13/2019 11:33 AM CDT) HCG QUANT, BLOOD 6,383.0(H) <5.0 mIU/mL 11/13/2019 12:40 PM CDT [facility] Blood Venipuncture / Unknown 11/13/2019 11:33 AM CDT 11/13/2019 11:41 AM CDT [facility] [employer] [facility] - 11/13/2019 12:40 PM CDT Result of 5 - 25 mIU/mL is indeterminant for , repeat of test recommended in 48 hours. Reference Range: Gestational Age ? HCG Concentration 3 ??Weeks ?5.8 - 71.2 ? mIU/mL 4 ??Weeks ?9.5 - 750 ?mIU/mL 5 ??Weeks ?217 - 5115 ? mIU/mL 6 ??Weeks ?158 - 31,795 [...] MD CHEMISTRY ORDERABL ES Performing Organization Address [facility] Co de Phone Number [facility]# [id number] [address] [place] [address] documented in this encounter Visit Diagnoses Diagnosis Encounter for confirmation of test result with physical examination examination or test, unconfirmed documented in this encounter Care Teams Plunket Nurse Relationship Specialty Start Date End Date Terrie Manning MD PCP - General Obstetrics and Gynecology 05/27/13 documented as of this encounter
--- OUTSIDE RECORDS SUMMARY | 2024-05-27 15:10 | XMS_ITS | Encounter Summary ---
Author Organization [facility] Address [address] [place] [address] Care Team Providers Care Aging Department Supervisor Name Role Phone Terrie Manning MD Primary Care Provider +1- [phone] Reason for Visit * Reason Onset Date Comments follow up 3 month after 0 Encounter Details Date Type Department Care Team (Late st Contact Info) Description 07/03/2019 Telephone [facility] Labor & [address] [place] [address] Odalis Schneider, RN follow up 3 month after Social History Tobacco Use Types Packs/Day Years [...] Telephone Encounter - Odalis Schneider RN - 07/03/2019 11:29 AM SINTERING PRESS OPERATOR Called to check on Angela frederic Nguyen given it has been 3 weeks since the of their daughter, Flaco. No answer. I left a voicemail letting them know we are thinking of them and Flaco. I encouraged her to call back at her convenience. Provided [facility] Phone Number. Mary [facility] [phone] ERING PRESS OPERATOR documented in this encounter Plan of Treatment Upcoming Encounters Date Type Department Care Team (Late st Contact Info) Description 10/08/2024 9:45 AM CDT Office Visit [facility] TOY MECHANIC - [place] [address] [address] Terrie Manning MD [address] [place] [address] documented as of this encounter Visit Diagnoses Not on filedocumented in this encounter Care Teams Aging Department Supervisor Relationship Specialty Start Date End Date Terrie Manning MD PCP - General Obstetrics and Gynecology 05/27/13 documented as of this encounter
--- OUTSIDE RECORDS SUMMARY | 2024-05-27 15:10 | XMS_ITS | Encounter Summary ---
Author Organization [facility] Address [address] [place] [address] Care Team Providers Care Calcine Furnace Tender Name Role Phone Terrie Manning MD Primary Care Provider +1- [phone] Encounter Details Date Type Department Care Team (Latest Contact Info) Description 01/29/2020 1:00 PM CDT Ancillary Procedure [facility] FARMWORKER FRUIT - [facility] [address] [place] [phone] with poor obstetric history Social History Tobacco Use Types Packs/Day Years [...] 10/08/2024 9:45 AM CDT Office Visit [facility] FARMWORKER FRUIT - Medical [facility] [address] [place] [phone] [place] [phone] Terrie Manning MD [address] [facility] [address] [address] documented as of this encounter Procedures Procedure Name Priority Date/Time Associated Diagnosis Comments US OB 14+ WKS SINGLE GEST Routine 01/29/2020 1:39 PM CDT with poor obstetric history documented in this encounter Results * US OB 14+ WKS SINGLE GEST (01/29/2020 1:39 PM CDT) Anatomical Region Laterality Modality Pelvis Ultrasound Study GA Study Date Study LEXIE Working LEXIE (Source) Feta l Weight (Method) 01/30/2020 07/15/2020 (Las t Menstrual Period) Result Name Value Comments BPD (Hadlock) cm HC (Hadlock) cm AC (Hadlock) cm FL (Hadlock) cm Humerus Length cm Cerebellum cm Nuchal Fold mm HC/AC Impressions 01/30/2020 6:56 PM CDT INDICATION: Inaudible heart tones, prior fetus with Trisomy 18 Gestational age: 16w0d EDC: 07/15/2020 EGA by u/s: 17w1d EDC by u/s 07/07/2020 Anatomy scan: incomplete RAMSEY:5.3cm EFW:179g (96%) AC: 10.89cm (77%) Placenta:posterior Cervix not seen Vertex Recommendation: Viable intrauterine . Good progression with normal heart rate. ?? growth and RAMSEY are appropriate for gestational age. Limited anatomy scan due to gestational age. Need follow up for posterior fossa, NLC, diaphragm, repeat 4ch heart, renal arteries, lower arms and hands and cervix. Follow up in 4 weeks. Terrie Manning MD Narrative Procedure Note Terrie Manning MD - 01/30/2020 IMPRESSION INDICATION: Inaudible heart tones, prior fetus with Trisomy 18 Gestational age: 16w0d EDC: 07/15/2020 EGA by u/s: 17w1d EDC by u/s 07/07/2020 Anatomy scan: incomplete RAMSEY:5.3cm EFW:179g (96%) AC: 10.89cm (77%) Placenta:posterior Cervix not seen Vertex Recommendation: Viable intrauterine . Good progression withnormal heart rate. growth and RAMSEY are appropriate forgestational age. Limited anatomy scan due to gestational age. Need followup for posterior fossa, NLC, diaphragm, repeat 4ch heart, renal arteries,lower arms and hands and cervix. Follow up in 4 weeks. Terrie Manning MD Terrie Manning MD ORDERABLES documented in this encounter Visit Diagnoses Diagnosis with poor obstetric history with other poor obstetric history documented in this encounter Care Teams Calcine Furnace Tender Relationship Specialty Start Date End Date Terrie Manning MD PCP - General Obstetrics and Gynecology 05/27/13 documented as of this encounter
--- OUTSIDE RECORDS SUMMARY | 2024-05-27 15:10 | XMS_ITS | Encounter Summary ---
Author Organization [facility] Address 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 No / Unsure 01/01/2020 11:04 AM CDT documented as of this encounter Last Filed Vital Signs Vital Sign Reading Time Taken Comments Blood Pressure 104/70 01/01/2020 11:09 AM CDT Pulse - - Temperature - - Respiratory Rate - - Oxygen Saturation - - Inhaled Oxygen Concentration - - Weight 72.8 kg (160 lb 6.4 oz) 01/01/2020 11:09 AM CDT Height - - Body Mass Index 23.02 04/01/2019 6:25 AM CDT documented in this encounter Progress Notes * Terrie Baca MD - 01/01/2020 9:23 PM CDT 12-16 Weeks LOUIE SUBJECTIVE: Angela A Ivana reports no abnormal vaginal bleeding or abdominal cramping. No unusual complaints for this stage of . OBJECTIVE: See flowsheet. ASSESSMENT: 34 y.o. at 12w0d wks with Estimated Date of Delivery: Estimated Date of Delivery: 07/15/20 NOB labs and genetic screening discussed. PLAN: Trisomy 18 in prior . NL genetic testing. Prior c/s with T incision-Repeat 36 wks. Routine care RTC 4 wks Pt to call or return with further questions or concerns. 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
--- OUTSIDE RECORDS SUMMARY | 2024-05-27 15:10 | XMS_ITS | Encounter Summary ---
Author Organization [facility] Address [address] [facility] Attn: [place] [address] Care Team Providers Care Clinical Cytogeneticist Name Role Phone Terrie Manning MD Primary Care Provider +1- [phone] Encounter Details Date Type Department Care Team (Latest Contact Info) Description 11/27/2019 Travel Social History Tobacco Use Types Packs/Day [...] Description 10/08/2024 9:45 AM CDT Office Visit [facility] CLEANER HOUSEKEEPING - Medical [place] [address] [phone] Terrie Manning MD [address] [address] documented as of this encounter Visit Diagnoses Not on filedocumented in this encounter Care Teams Clinical Cytogeneticist Relationship Specialty Start Date End Date Terrie Manning MD PCP - General Obstetrics and Gynecology 05/27/13 documented as of this encounter
--- OUTSIDE RECORDS SUMMARY | 2024-05-27 15:10 | XMS_ITS | Encounter Summary ---
Author Organization [facility] Address [address] [facility] Attn: [place] [address] Care Team Providers Care Shank Stapler Name Role Phone Terrie Manning MD Primary Care Provider +1- [phone] Encounter Details Date Type Department Care Team (Latest Contact Info) Description 11/06/2019 Travel Social History Tobacco Use Types Packs/Day [...] Description 10/08/2024 9:45 AM CDT Office Visit [facility] DOCUMENT CONTROL COORDINATOR - Medical [facility] [address] [facility] [address] [phone] Terrie Manning MD [address] [facility] [address] [address] documented as of this encounter Visit Diagnoses Not on filedocumented in this encounter Care Teams Shank Stapler Relationship Specialty Start Date End Date Terrie Manning MD PCP - General Obstetrics and Gynecology 05/27/13 documented as of this encounter
--- OUTSIDE RECORDS SUMMARY | 2024-05-27 15:10 | XMS_ITS | Encounter Summary ---
Author Organization [facility] Address 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); History of chromosomal abnormality; Encounter for screening of mother; Anxiety state; 10 weeks gestation of Social History Tobacco Use [...] Sign Reading Time Taken Comments Blood Pressure 114/60 12/18/2019 11:10 AM CDT Pulse - - Temperature - - Respiratory Rate - - Oxygen Saturation - - Inhaled Oxygen Concentration - - Weight 72.6 kg (160 lb) 12/18/2019 11:10 AM CDT Height - - Body Mass Index 22.96 04/01/2019 6:25 AM CDT documented in this encounter Progress Notes * Terrie Baca MD - 12/18/2019 11:18 AM CDT 10 Weeks LOUIE SUBJECTIVE: Angela Alarcon reports no abnormal vaginal bleeding or abdominal cramping. No unusual complaints for this stage of . OBJECTIVE: See flowsheet. ASSESSMENT: 34 y.o. at 10w0d wks with Estimated Date of Delivery: Estimated Date of Delivery: 07/15/20 NOB labs and genetic screening discussed. PLAN: U/S today shows normal progression. 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 Genetic testing today. Anxiety-Cont Zoloft Routine care RTC 2 wks Pt to call or return with further questions or concerns. Terrie Baca MD documented in this encounter Plan of Treatment Upcoming Encounters Date Type Department Care Team (Late st Contact Info) Description 10/08/2024 9:45 AM CDT Office Visit [facility] SOCIAL RESEARCH ASSISTANT - Medical [facility] [address] [address] [address] Terrie Baca MD [facility] [address] [place] [address] documented as of this encounter Procedures Procedure Name Priority Date/Time Associated Diagnosis Comments NON-INVASIVE TESTING PANEL (NIPT) Routine 12/26/2019 12:00 AM CDT 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 , 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 History of chromosomal abnormality documented in this encounter Results * NON-INVASIVE TESTING PANEL (NIPT) (12/26/2019 12:00 AM CDT) REPORT SUMMARY See Notes KHALIDA Comment:LOW RISK REPORT NOTE See Notes KHALIDA TRISOMY 13 AGE-BASED RISK SCORE 0.05 KHALIDA TRISOMY 13 RISK SCORE <^0.01 KHALIDA TRISOMY 13 AGE-BASED RISK TEXT 852 (0.05%) KHALIDA TRISOMY 13 RISK SCORE TEXT <1/10,000 (<0.01%) KHALIDA TRISOMY 13 AGE-BASED RISK FRACTION ^1^/^1852 KHALIDA TRISOMY 13 RISK SCORE FRACTION <^1^/^28193 KHALIDA TRISOMY 13 RESULT TEXT Low Risk KHALIDA TRISOMY 13 RESULT COMMENTS None Specified KHALIDA TRISOMY 18 AGE-BASED RISK SCORE 0.17 KHALIDA TRISOMY 18 RISK SCORE <^0.01 KHALIDA TRISOMY 18 AGE-BASED RISK TEXT 582 (0.17%) KHALIDA TRISOMY 18 RISK SCORE TEXT <1/10,000 (<0.01%) KHALIDA TRISOMY 18 AGE-BASED RISK FRACTION ^1^/^582 KHALIDA TRISOMY 18 RISK SCORE FRACTION <^1^/^89557 KHALIDA TRISOMY 18 RESULT TEXT Low Risk KHALIDA TRISOMY 18 RESULT COMMENTS None Specified KHALIDA TRISOMY 21 AGE-BASED RISK SCORE 0.35 KHALIDA TRISOMY 21 RISK SCORE <^0.01 KHALIDA TRISOMY 21 AGE-BASED RISK TEXT (0.35%) KHALIDA TRISOMY 21 RISK SCORE TEXT <1/10,000 (<0.01%) KHALIDA TRISOMY 21 AGE-BASED RISK FRACTION ^1^/^287 KHALIDA TRISOMY 21 RISK SCORE FRACTION <^1^/^73644 KHALIDA TRISOMY 21 RESULT TEXT Low Risk KHALIDA TRISOMY 21 RESULT COMMENTS None Specified KHALIDA MONOSOMY X AGE-BASED RISK SCORE 0.39 KHALIDA MONOSOMY X RISK SCORE <^0.01 KHALIDA MONOSOMY X AGE-BASED RISK TEXT 255 (0.39%) KHALIDA MONOSOMY X RISK SCORE TEXT <1/10,000 (<0.01%) KHALIDA MONOSOMY X AGE-BASED RISK FRACTION ^1^/^255 KHALIDA MONOSOMY X RISK FRACTION <^1^/^51057 KHALIDA MONOSOMY X RESULT TEXT Low Risk KHALIDA MONOSOMY X RESULT COMMENTS None Specified KHALIDA 22Q11.2 DELETION SYNDROME POPULATION-BASED RISK SCORE ^1^/^2000 KHALIDA 22Q11.2 DELETION SYNDROME POPULATION-BASED RISK TEXT 06/06,000 KHALIDA 22Q11.2 DELETION SYNDROME RISK SCORE ^1^/^9000 KHALIDA 22Q11.2 DELETION SYNDROME RISK SCORE TEXT KHALIDA 22Q11.2 DELETION SYNDROME RESULT TEXT Low Risk KHALIDA 22Q11.2 DELETION SYNDROME RESULT INTERPRETATION None Specified KHALIDA TRIPLOIDY RESULT TEXT Low Risk KHALIDA TRIPLOIDY RESULT COMMENTS None Specified KHALIDA GENDER OF FETUS Female KHALIDA FRACTION (IN %) 12.8 KHALIDA FRACTION 12.8% KHALIDA FOOTNOTES None Specified KHALIDA Comment: Condition tested excludes cases with evidence of and/or placental mosaicism. Prior risk for aneuploidy is based on maternal age and gestational age, where applicable. Panorama risk score is based on a priori risk and results of analysis of circulating placental DNA. Prior risk for microdeletion syndromes, if ordered, are based on overall disease prevalence in the population. This test will not identify all deletions associated with each disorder. This test has been validated on full region deletions only and may be unable to detect smaller deletions. BOILER PLATE TEXT None Specified KHALIDA Comment: Testing Methodology DNA isolated from the maternal blood, which contains placental DNA, is amplified at specific loci using a targeted PCR assay and is sequenced using a high- throughput sequencer. fraction is determined using a proprietary algorithm incorporating data from single nucleotide polymorphism-based (SNP-based) next-generation sequencing [Pertito E et al. Obstet Gynecol. 2014 Jan;124(2 Pt 1):210-8]. If the estimated fraction is ?2.8%, sequencing data is analyzed using a proprietary SNP-based algorithm to determine the copy number for chromosomes 13, 18, 21, X and Y [Chente Leon et al. Am J Obstet Gynecol. 2014 Apr;211(5):527.e1-527.e17]. If ordered, specific microdeletions will be evaluated using similar methodology [Hilario DAVENPORT et al. Am J Obstet Gynecol. 2015 Aug;212(3):332.e1-9]. If a sample fails to meet the quality threshold, or the fraction is insufficient, an additional algorithm is utilized to determine whether there is an increased risk for triploidy, trisomy 18 and trisomy 13 [Benita et al. The Human Genetics Conference. [facility]. October 29-2016]. However, ? some samples will not produce a result due to failure to meet the necessary quality thresholds. ?? Disclaimers This test has been validated on women with a la, twin or egg donor of at least nine weeks gestation. A result will not be available for higher order multiples and multiple gestation pregnancies with an egg donor or surrogate, or bone marrow transplant recipients. Complete test panel is not available for twin gestations and pregnancies achieved with an egg donor or surrogate. For twin pregnancies with a fraction value below the threshold for analysis, a sum of the fractions for both twins will be reported. Findings of unknown significance will not be reported. As this assay is a screening test and not diagnostic, false positives and false negatives can occur. High risk test results need diagnostic confirmation by alternative testing methods. Low risk results do not fully exclude the diagnosis of any of the syndromes nor do they exclude the possibility of other chromosomal abnormalities or defects, which are not a part of this test. Potential sources of inaccurate results include, but are not limited to, mosaicism, low fraction, limitations of current diagnostic techniques, or misidentification of samples. This test will not identify all deletions associated with each microdeletion syndrome. This test has been validated on full region deletions only and may be unable to detect smaller deletions. Microdeletion risk score is dependent upon fraction, as deletions on the maternally inherited copy are difficult to identify at lower fractions. Test results should always be interpreted by a clinician in the context of clinical and familial data with the availability of genetic counseling when appropriate. The Panorama test was developed by [facility] a laboratory certified under the Clinical Laboratory Improvement Amendments (CLIA). A portion of the technical component of these tests may have been performed at [facility], [address] [place] [address] A, [address], [place] [address] (CLIA ID: [id number]). This test has not been cleared or approved by the U.S, Food and Drug Administration (FDA). ?? REFERENCES None Specified KHALIDA Comment:Please contact Yung leon for a PDF report APPROVALS None Specified KHALIDA Comment: Test performed by [facility]. [address] [place] [address] CLIA ID #[id number] Abbie Timmons Ph.D., [facility], Respite Care Provider CLIA Logistics Operations Manager: Moody Martins, Ph.D., [facility] CONTACTS None Specified KHALIDA Comment:IF THE ORDERING PROV IDER HAS QUESTIONS OR WISHES TO DISCUSS THE RESULTS, PLEASE CONTACT US AT [phone] #[phone]. Ask for the NIPT genetic counselor environmental specialist. Blood Terrie Baca MD CHEMISTRY ORDERABL ES [place] 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
--- OUTSIDE RECORDS SUMMARY | 2024-05-27 15:10 | XMS_ITS | Encounter Summary ---
Author Organization [facility] Address [address] [place] [address] Care Team Providers Care Submarine Diver Name Role Phone Terrie Manning MD Primary Care Provider +1- [phone] Encounter Details Date Type Department Care Team (Late st Contact Info) Description 12/18/2019 Orders Only [facility] RESPIRATORY CARE TECHNICIAN - Medical [address] [address] Terrie Manning MD [address] [place] [address] Social History Tobacco Use Types [...] Description 10/08/2024 9:45 AM CDT Office Visit [facility] RESPIRATORY CARE TECHNICIAN - Medical [facility] [address] [address] Terrie Manning MD [address] [facility] [address] [address] documented as of this encounter Visit Diagnoses Not on filedocumented in this encounter Care Teams Submarine Diver Relationship Specialty Start Date End Date Terrie Manning MD PCP - General Obstetrics and Gynecology 05/27/13 documented as of this encounter
--- OUTSIDE RECORDS SUMMARY | 2024-05-27 15:10 | XMS_ITS | Encounter Summary ---
Author Organization [facility] Address [address] [place] [address] Care Team Providers Care Duty Manager Name Role Phone Terrie Manning MD Primary Care Provider +1- [phone] Reason for Visit * Reason Comments Medication Refill Encounter Details Date Type Department Care Team (Late st Contact Info) Description 07/22/[address] [facility] APPLICATION SUPPORT DEVELOPER - Medical [address] [address] Terrie Manning MD [facility] [facility] [address] [place] [address] Insomnia, unspecified type Social History Tobacco Use Types Packs/Day Years [...] * Telephone Encounter - Mariann Martin - 07/23/2019 10:58 AM CST Approved and faxed. E RESEARCHER documented in this encounter Plan of Treatment Upcoming Encounters Date Type Department Care Team (Late st Contact Info) Description 10/08/2024 9:45 AM CDT Office Visit [facility] APPLICATION SUPPORT DEVELOPER - [facility] [address] [address] Terrie Manning MD [address] [place] [address] documented as of this encounter Visit Diagnoses Diagnosis Insomnia, unspecified type documented in this encounter Care Teams Duty Manager Relationship Specialty Start Date End Date Terrie Manning MD PCP - General Obstetrics and Gynecology 05/27/13 documented as of this encounter
--- OUTSIDE RECORDS SUMMARY | 2024-05-27 15:10 | XMS_ITS | Encounter Summary ---
Author Organization [facility] Address [address] [place] [address] Care Team Providers Care Veterinary Livestock Inspector Name Role Phone Terrie Manning MD Primary Care Provider +1- [phone] Reason for Visit * Reason Comments MATERNTY BENEFITS Encounter Details Date Type Department Care Team (Late st Contact Info) Description 12/18/2019 Chart Note [facility] BRAIN PICKER - Medical [address] [address] Terrie Manning MD [address] [place] [address] MATERNTY BENEFITS Social History Tobacco Use Types Packs/Day Years [...] COVID-19? No / Unsure 06/10/2020 10:27 AM DISPUTE SPECIALIST documented as of this encounter Progress Notes * Sharda Friedman D - 12/18/2019 11:29 AM CDT I went over ob benefits with patient and . She has $5000 deductible then covered at 80/20 till her $6850 out of pocket is met. We are pre-collecting $3604 the allowed amount for her package. Her payments will be $514.86 for the next 7 months. She made her first payment today. They have HSA and it's a [facility] policy. 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 They wanted to know about the genetic testing. I made them aware that the testing could apply to their 2020 benefits or it could get denied and [employer] will adjust it down to the self pay cost of $249. Per Lauren at [facility]. Refs # [id number]. EDC: 07/15/20. 01/22/20: Received a message from patient that she received a bill from [employer] for $749. It shows that her [facility] policy didn't pay anything on it so she thought it would be adjusted down to the self pay cost of $249. I called [employer] and spoke to Kev and he said it's applying to her deductible. Since Terrance is in net-work with [employer] and they have a contract with them they applied the full charge to her benefits. I emailed Raysa to look into this for me and let me know what she finds out. I also left message for patient to email me a copy of her bill and once I know anything concrete I will lether know. 01/22/20: Raysa from [employer] called and stated that [employer] did apply the allowed amount of $749 to her deductible. She mention that she's able to get it changed to be self pay instead of it going to her benefits if Angela wants that to happen. Raysa is reaching out to Angela and discussing this with herfurther. 02/26/20: Patient here and she made her 3rd ob payment of $514.86. 03/25/20: Patient here and she made her 4th ob payment of $514.86. 04/22/20: Patient here and she made her 5th ob payment of $514.86. She mention that she's going to a $2500 deductible for 2020 instead of her $5000 deductible that she has now. I made her aware she must follow this policy till I recheck her benefits for 2020. 06/10/20: Patient here and she signed the new paperwork that her benefits changed. They went to a $2800 family deductible then covered at till the $6000 family deductible is met. We are still pre-collecting $2960.80 from her. She has pre-paid us $2574.30 but we have used $434.78 for ultrasoundsand she has a remaining ob credit of $2139.52. ($2960.80-$2139.52=$821.28 still owes. She paid in full today and paid the $821.28. UTE SPECIALIST documented in this encounter Plan of Treatment Upcoming Encounters Date Type Department Care Team (Late st Contact Info) Description 10/08/2024 9:45 AM CDT Office Visit [facility] BRAIN PICKER - [address] [address] Terrie Manning MD [facility] [address] [address] documented as of this encounter Visit Diagnoses Not on filedocumented in this encounter Care Teams Veterinary Livestock Inspector Relationship Specialty Start Date End Date Terrie Manning MD PCP - General Obstetrics and Gynecology 05/27/13 documented as of this encounter
--- OUTSIDE RECORDS SUMMARY | 2024-05-27 15:10 | XMS_ITS | Encounter Summary ---
Author Organization [facility] Address [address] [facility] Attn: [place] [address] Care Team Providers Care Dynamo Tender Name Role Phone Terrie Manning MD Primary Care Provider +1- [phone] Encounter Details Date Type Department Care Team (Latest Contact Info) Description 01/29/2020 Travel Social History Tobacco Use Types Packs/Day [...] CDT Office Visit [facility] TRANSITIONAL CARE MANAGER - Medical [place] [address] [phone] Terrie Manning MD [address] [address] documented as of this encounter Visit Diagnoses Not on filedocumented in this encounter Care Teams Dynamo Tender Relationship Specialty Start Date End Date Terrie Manning MD PCP - General Obstetrics and Gynecology 05/27/13 documented as of this encounter
--- OUTSIDE RECORDS SUMMARY | 2024-05-27 15:10 | XMS_ITS | Encounter Summary ---
Author Organization [facility] Address [address] [place] [address] Care Team Providers Care Hedge Trimmer Name Role Phone Terrie Manning MD Primary Care Provider +1- [phone] Encounter Details Date Type Department Care Team (Latest Contact Info) Description 02/26/2020 10:30 AM CDT Ancillary Procedure [facility] INVESTIGATOR OPERATOR - [facility] [address] [facility] [address] [phone] Encounter for anatomic survey Social History Tobacco Use Types Packs/Day Years [...] CDT Office Visit [facility] INVESTIGATOR OPERATOR - Medical [facility] [address] [place] [address] [place] [phone] Terrie Manning MD [address] [facility] [address] [address] documented as of this encounter Procedures Procedure Name Priority Date/Time Associated Diagnosis Comments US OB 14+ WKS SINGLE GEST Routine 02/26/2020 11:22 AM CDT Encounter for anatomic survey documented in this encounter Results * US OB 14+ WKS SINGLE GEST (02/26/2020 11:22 AM CDT) Anatomical Region Laterality Modality Pelvis Ultrasound Study GA Study Date Study LEXIE Working LEXIE (Source) Feta l Weight (Method) 03/01/2020 07/15/2020 (Las t Menstrual Period) Result Name Value Comments BPD (Hadlock) cm HC (Hadlock) cm AC (Hadlock) cm FL (Hadlock) cm Humerus Length cm Cerebellum cm Nuchal Fold mm HC/AC Impressions 03/01/2020 10:48 PM CDT INDICATION: Anatomy, Prior Trisomy 18 fetus, Prior low vertical Gestational age: 20w0d EDC: 07/15/2020 EGA by u/s: 21w3d EDC by u/s 07/05/2020 Anatomy scan: complete FHR:158 DVP:4.35cm EFW:407g (96%) AC: 15.60cm (70%) Placenta:posterior, low lying CL:5cm Recommendation: Viable intrauterine . growth Is accelerated for gestational age. ??RAMSEY is appropriate for gestational age. anatomy is complete and appears normal. Placenta appears low lying. Pt is schedule for repeat at 36 weeks. Follow up as clinically indicated. Terrie Manning MD Narrative Procedure Note Terrie Manning MD - 03/01/2020 IMPRESSION INDICATION: Anatomy, Prior Trisomy 18 fetus, Prior low verticalcesarean Gestational age: 20w0d EDC: 07/15/2020 EGA by u/s: 21w3d EDC by u/s 07/05/2020 Anatomy scan: complete FHR:158 DVP:4.35cm EFW:407g (96%) AC: 15.60cm (70%) Placenta:posterior, low lying CL:5cm Recommendation: Viable intrauterine . growth Is acceleratedfor gestational age. RAMSEY is appropriate for gestational age. Fetalanatomy is complete and appears normal. Placenta appears low lying. Pt isschedule for repeat at 36 weeks. Follow up as clinicallyindicated. Terrie Manning MD Terrie Manning MD ORDERABLES documented in this encounter Visit Diagnoses Diagnosis Encounter for anatomic survey documented in this encounter Care Teams Hedge Trimmer Relationship Specialty Start Date End Date Terrie Manning MD PCP - General Obstetrics and Gynecology 05/27/13 documented as of this encounter
--- OUTSIDE RECORDS SUMMARY | 2024-05-27 15:10 | XMS_ITS | Encounter Summary ---
Author Organization [facility] Address [address] [facility] Attn: [place] [address] Care Team Providers Care Burner Hand Name Role Phone Terrie Manning MD Primary Care Provider +1- [phone] Encounter Details Date Type Department Care Team (Latest Contact Info) Description 09/20/2019 Travel Social History Tobacco Use Types Packs/Day [...] Description 10/08/2024 9:45 AM CDT Office Visit [facility] COTTON GROWER - Medical [facility] [address] [place] [phone] Terrie Manning MD [address] [facility] [address] [address] documented as of this encounter Visit Diagnoses Not on filedocumented in this encounter Care Teams Burner Hand Relationship Specialty Start Date End Date Terrie Manning MD PCP - General Obstetrics and Gynecology 05/27/13 documented as of this encounter
--- OUTSIDE RECORDS SUMMARY | 2024-05-27 15:10 | XMS_ITS | Encounter Summary ---
Author Organization [facility] Address [address] [facility] Attn: [place] [address] Care Team Providers Care Parts Room Assistant Name Role Phone Terrie Manning MD Primary Care Provider +1- [phone] Encounter Details Date Type Department Care Team (Latest Contact Info) Description 01/01/2020 Travel Social History Tobacco Use Types Packs/Day [...] AM CDT Office Visit [facility] CARPENTER REPAIR - Medical [place] [address] [place] [phone] Terrie Manning MD [address] [address] documented as of this encounter Visit Diagnoses Not on filedocumented in this encounter Care Teams Parts Room Assistant Relationship Specialty Start Date End Date Terrie Manning MD PCP - General Obstetrics and Gynecology 05/27/13 documented as of this encounter
--- OUTSIDE RECORDS SUMMARY | 2024-05-27 15:10 | XMS_ITS | Encounter Summary ---
Author Organization [facility] Address [address] [place] [address] Care Team Providers Care Trader Fixed Income Name Role Phone Terrie Manning MD Primary Care Provider +1- [phone] Encounter Details Date Type Department Care Team (Latest Contact Info) Description 12/18/2019 10:30 AM CDT Ancillary Procedure [facility] TRAIN CONTROLLER - [facility] [address] [place] [phone] Family history of trisomy 18 Social History Tobacco Use Types Packs/Day Years [...] Description 10/08/2024 9:45 AM CDT Office Visit [facility] TRAIN CONTROLLER - Medical [facility] [id number] [place] [phone] Terrie Manning MD [address] [facility] [address] [phone] documented as of this encounter Procedures Procedure Name Priority Date/Time Associated Diagnosis Comments US OB LESS THAN 14 WKS SINGLE GEST Routine 12/18/2019 10:59 AM CDT Family history of trisomy 18 documented in this encounter Results * US OB LESS THAN 14 WKS SINGLE GEST (12/18/2019 10:59 AM CDT) Anatomical Region Laterality Modality Pelvis Ultrasound Study GA Study Date Study LEXIE Working LEXIE (Source) Feta l Weight (Method) 12/18/2019 07/15/2020 (Las t Menstrual Period) Result Name Value Comments CRL ([place]) mm Sac Diameter cm FHR bpm Impressions 12/18/2019 10:40 PM CDT INDICATION: Progression, previous with Trisomy 18 Gestational age: 10w0d LMP:Patient's last menstrual period was 10/09/2019. LEXIE (LMP):07/15/2020 EGA by u/s: 10w3d LEXIE (AUA):07/12/2020 FHR:158 ROSEMARIE:No Ovaries not visualized. LMP LEXIE consistent with u/s today:Yes Recommendation: Viable intra-uterine consistent with dates. Normal progression. Follow up for anatomy survey or sooner if clinically indicated. Terrie Manning MD Narrative Procedure Note Terrie Manning MD - 12/18/2019 IMPRESSION INDICATION: Progression, previous with Trisomy 18 Gestational age: 10w0d LMP:Patient's last menstrual period was 10/09/2019. LEXIE (LMP):07/15/2020 EGA by u/s: 10w3d LEXIE (AUA):07/12/2020 FHR:158 ROSEMARIE:No Ovaries not visualized. LMP LEXIE consistent with u/s today:Yes Recommendation: Viable intra-uterine consistent with dates.Normal progression. Follow up for anatomy survey or sooner ifclinically indicated. Terrie Manning MD Terrie Manning MD ORDERABLES documented in this encounter Visit Diagnoses Diagnosis Family history of trisomy 18 Family history of genetic disease carrier documented in this encounter Care Teams Trader Fixed Income Relationship Specialty Start Date End Date Terrie Manning MD PCP - General Obstetrics and Gynecology 05/27/13 documented as of this encounter
--- OUTSIDE RECORDS SUMMARY | 2024-05-27 15:10 | XMS_ITS | Encounter Summary ---
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 [phone] documented as of this encounter Visit Diagnoses Not on filedocumented in this encounter Care Teams Production Planning Manager Relationship Specialty Start Date End Date Terrie Manning MD PCP - General Obstetrics and Gynecology 05/27/13 documented as of this encounter
--- OUTSIDE RECORDS SUMMARY | 2024-05-27 15:11 | XMS_ITS | Encounter Summary ---
Author Organization [facility] Address [address] [place] [address] Care Team Providers Care Assistant Gm Of Content [employer] Delivery Name Role Phone Terrie Baca MD Primary Care Provider [phone]- [phone] Reason for Visit * Auth/Cert Specialty Diagnoses / Procedures Referred By Contac t Referred To Contact Obstetrics and Gynecology Diagnoses EDC 04/27 Hx of classical Trisomy 18 Procedures SECTION [facility] [address] [place] [address] Referral ID Status Reason Start Date Expiration Date Visits Re quested Visits Authorized [id number] 1 1 Encounter Details Date Type Department Care Team (Late st Contact Info) Description 04/01/2019 7:45 AM CDT - 04/01/2019 9:15 AM CDT Surgery [facility] Labor & [address] [place] [address] Terrie Baca MD [address] [facility] [address] [address] SECTION Surgery Details Date/Time Status Location OR Service Patient Class Case Class Case Type Trauma Case? 04/01/2019 7:45 AM Posted [facility] L&D C-S B Obstetrics Surgery Admit Elective No Panel 1 Procedure LRB Anes Op Region Wound Class Comments SECTION N/A Epidural Abdomen Clean Contami nated-II EDC 04/27 * Hx of classical Trisomy 18 Surgeon Surgeon Role Service Panel Terrie Baca [...] Sign Reading Time Taken Comments Blood Pressure 116/71 04/01/2019 9:10 AM CDT Pulse 125 04/01/2019 9:10 AM CDT Temperature 36.6 ??C (97.9 ??F) 04/01/2019 8:57 AM CD T Respiratory Rate 20 04/01/2019 8:57 AM CDT Oxygen Saturation 100% 04/01/2019 9:10 AM CDT Inhaled Oxygen Concentration - - Weight 81.2 kg (179 lb) 04/01/2019 6:25 AM CDT Height 177.8 cm (5' 10 ) 04/01/2019 6:25 AM CDT Body Mass Index 25.68 04/01/2019 6:25 AM CDT documented in this encounter Discharge Summaries * Terrie Baca MD - 04/03/2019 9:41 AM CDT Physician Discharge Summary - Delivery Patient: Angela Alarcon / 33 y.o. / female : 1985 Admit date: 04/01/2019 Discharge date: Attending Physician0 : Terrie Baca MD Data: Information for the patient's : Brennensekoujaron [id number] [[id number]] Information for the patient's : [id number] [[id number]] tab Discharge Diagnosis 1. non-labor Hospital Procedures 1. none. Pertinent History & Physical See H&P. Hospital Course Uncomplicated. Discharge Labs HEMOGLOBIN Date Value Ref Range Status 04/01/2019 12.1 11.8 - 14.8 g/dL Final PLATELETS Date Value Ref Range Status 04/01/2019 255 140 - 350 K/uL Final Discharge Condition:[id number] stable. Disposition She is discharged to home. [...] Terrie Baca MD Quantity: 60 Tablet Refills: 2 oxyCODONE 5 mg tablet Commonly known as: ROXICODONE Take 1 Tablet (5 mg) by mouth every 4 hours as needed for Pain. Max Daily Amount: 30 mg Signed by: Terrie Baca MD Quantity: 30 Tablet Refills: 0 CONTINUE taking these medications sertraline 50 mg tablet Commonly known as: ZOLOFT Take 1 Tablet (50 mg) by mouth daily. Signed by: Terrie Baca MD Quantity: 90 Tablet Refills: 1 zolpidem 5 mg tablet Commonly known as: AMBIEN TAKE 1 TABLET BY MOUTH AT BEDTIME NEEDED FOR SLEEP Refills: 0 STOP taking these medications Vit 00-Mrax-WF-DSS 90-1-50 mg Tablet Commonly known as: ADVANCED Where to Get Your Medications Information about where to get these medications is not yet available Ask your nurse or doctor about these medications ?? ibuprofen 600 mg tablet ?? oxyCODONE 5 mg tablet documented in this encounter Discharge Instructions * Discharge Instructions* Millie Vargas RN - 04/03/2019 11:45 AM CDT Images from the original note were not included. When should you call for help? Call 911 if you have: ??? Pain in chest ??? Obstructed breathing or shortness of breath ??? Seizures ??? Thoughts of hurting yourself Call you healthcare provider if you have: [...] urination ??? Swelling, redness, tenderness in breasts PRESCRIPTIONS Prescriptions given? Yes; Will be delivered from pharmacy. ACTIVITY/EXERCISE Recovery is a progressive process. It [...] well fitting support bra, day and night. ?? Avoid breast stimulation, such as showers [...] relief. Avoid constipation. ABDOMINAL CRAMPS After- pains or cramping may be felt. Talk with your doctor about pain medication. MENSTRUATION You may start to menstruate in 6 - 10 weeks. The first two periods are often irregular [...] your comfort. KNOW ABOUT HELP FOR DEPRESSION ??? Rest whenever you can. ??? Talk to your partner, friends, and family about your feelings. ??? If your symptoms last or if you feel very depressed, ask your doctor for help. depression can be treated. Support groups and counseling can help. Sometimes medicine can also help documented in this encounter Medications at Time of Discharge Medication Sig Dispensed Refills Start Date End Date SUMAtriptan (IMITREX) 100 mg tablet 1 03/26/2019 07/22/2019 sertraline (ZOLOFT) 50 mg tablet Take 1 Tablet (50 mg) by mouth daily. 90 Tablet 1 03/11/2019 09/20/2019 zolpidem (AMBIEN) 5 mg tablet TAKE 1 TABLET BY MOUTH AT BEDTIME NEEDED FOR SLEEP 0 12/31/2018 04/11/2019 documented as of this encounter Progress Notes * Lena Stoddard RN - 04/03/2019 11:00 AM CDT Spoke with Angela and Alvin about the [employer] [facility] program and provided them with the bereavement literature and Heartprints packet. They were appreciative. I also gave Angela the gift card for the [facility]. They are spending time with Flaco and planning on discharging around noon. We discussed the home information and I told them that I spoke with Silverio Garcia, the freight conductor of [facility]. He stated that there would not be a fee for any servicesprovided and that the family should contact him when they are ready to finalize their plans. They were very thankful for the assistance. They have completed the paperwork for Flaco and I instructed them to call me when they are ready to be discharged. Lena Barnhart [facility] * Lena Stoddard RN - 04/03/2019 9:30 AM CDT Met with Sue at 0930. Angela was holding baby Flaco. Grieving appropriately. Erica getting footprints for mementos. Alvin had some questions regarding arrangements and I told him I would call for them today. They wanted to use [facility]. They are opting for cremation. I told them I will come back with information for the home and some bereavement literature. * Pina Montemayor RN - 04/03/2019 12:12 AM CDT Received call from NICU nurse. Baby Flaco did pass. Family in room with pt. Lorie called to room for emotional support. Heartprints is already seeing pt. Left message giving update on baby's status. NICU nurse provided booklet and ink for hand prints that pt and family can use. Cooling cot brought to room. Checked in on pt, coping well, provided support and told pt to call if family needed anything. Pt requesting time with baby and family alone. * Lena Stoddard RN - 04/02/2019 2:28 PM CDT Pt has been out of her room and visiting with family and baby in Dhaval's room in the NICU. Pt goingoutside for fresh air. Will check back and see if she needs anything or has any questions. Lena Barnhart [facility] * Terrie Baca MD - 04/02/2019 10:04 AM CDT Note Subjective: Day 1: Delivery The patient feels well. Pain is well controlled with current medications. The patient is ambulatingwell. The patient is tolerating a normal diet. Objective: Patient Vitals for the past 8 hrs: BP Temp Temp src Pulse Resp SpO2 04/02/19 0800 97/60 97.8 ??F (36.6 ??C) Oral 90 16 99 % 04/02/19 0405 106/69 97.7 ??F (36.5 ??C) Oral 81 17 99 % General: alert, in no distress Uterine Fundus: normal size, well involuted, firm, non-tender Incision: healing well, no significant drainage, no dehiscence, no significant erythema DVT Evaluation: No evidence of DVT seen on physical exam. Assessment: Status post section. Doing well postoperatively.. Plan: Continue current care KLeMoineMD * Lena Stoddard, ATTILA - 04/02/2019 9:17 AM CDT Checked on Angela, Alvin, and Flaco. Doing okay, just Alvin and Angela are in the room and spendingtime with Flaco. Their parents did stay the night and will be there today for support. They are happy that Flaco has made it through the night. They stated they did not need anything at the moment. Idid leave my phone number for Angela in case she thinks of anything or needs to talk. Lena Stoddard RN [facility] * Millie Vargas, ATTILA - 04/02/2019 9:00 AM CDT Spoke to Dr. Claire to get epidural removed. * Pina Montemayor, ATTILA - 04/02/2019 1:20 AM CDT Spoke with OB Anesthesia. Pt okay to have Abad removed. No need to keep in with epidural. * Lidia Mercedes RN - 04/01/2019 7:[address] Armstrong okay to leave in abad as epidural is in place. Team will re- evaluate in the morning. * Lena Stoddard RN - 04/01/2019 3:43 PM CDT Stopped by pt's room to introduce myself and the [employer] [facility] program. I told Angela and her family that I will be here to assist them in any way to make this situation easier. I told them that we can discuss more later on but to enjoy their time with Flaco. I informed them that I will be checking on Angela, Alvin, and Flaco. The family have Dhaval's room in the NICU to gather in. They were very appreciative. Lena [facility]oddard RN [facility] * Flora Glover RN - 03/29/2019 12:37 PM CDT Pre-Operative Patient Education: Today's Date: 03/29/2019 Patient: Angela Alarcon is a 33 y.o. female : 1985 Confirms understanding of the following patient education: [] Date and time of scheduled procedure 04/01 @ 0745 [] Personal belongings policy-leave all jewelry at home [] Arrival time and location Arrive by 0545 to [facility]. [] Oral intake instructions per OB Anesthesia No solids p 0045, clears then NPO @ 0445 [] Consult with Dr. BACA about taking home medications prior to surgery [] Showering instructions with antibacterial soap, and abdomen scrub x 3 minutes reviewed with patient Left message on pt's voicemail concerning the above information. Instructed pt to return call if any questions. Opportunity provided for questions. [employer] required: NO Flora Glover RN * Beth Pike RN - 03/22/2019 8:39 AM CDT Pre-Operative Patient Education: Today's Date: 03/22/2019 Patient: Angela Alarcon is a 33 y.o. female : 1985 Confirms understanding of the following patient education: [x] Date and time of scheduled procedure [x] Personal belongings policy-leave all jewelry at home [x] Arrival time and location [x] Oral intake instructions per OB Anesthesia [x] Consult with Dr. Baca about taking home medications prior to surgery [x] Showering instructions with antibacterial soap, and abdomen scrub x 3 minutes reviewed with patient Opportunity provided for questions. Left voicemail and call back number for questions [employer] required: N/A Beth Pike RN * Hortencia Rodriguez RN - 03/21/2019 1:08 PM CDT Images from the original note were not included. [facility] CARE TEAM [address] [place] [address] CARE TEAM CONSULT NOTE To view Reports/Consultation notes please visit the below tabs in Chart Review: Ultrasound Reports-???Images?? tab MFM Consultation (if applicable)- Media tab Pediatric Specialty Consultation- Notes tab PRIMARY FCT COORDINATOR: Hortencia Rodriguez RN PATIENT DEMOGRAPHICS: PATIENT NAME: Angela Alarcon DATE OF : 1985 PATIENT Estimated Date of Delivery: 04/27/19 /PARA : DRUG ENFORCEMENT ADMINISTRATION AGENT: Dr. Baca DIAGNOSIS: Trisomy 18 per amniocentesis. VSD, clenched fists, intracranial findings, pyelectasis MATERNAL: History of T incision on uterus DELIVERY PLAN: Delivery via repeat c/s on 03/25/19. NICU present at delivery to assess. Comfort care for . Please see Dr. Eisenberg's NICU note of 03/20/19 in Epic Consultation Note: I met with Angela Alarcon and her Alvin on 03/21/19 in the Meditation Room of the [facility] for a scheduled NICU consult with Dr. Eisenberg. Please see Dr. Eisenberg's note for plan Care Appointment: Continue routine care appointments with Dr Baca Surveillance: ultrasounds have been done in Dr. Baca's office since 12/26/18 Consultations: Genetic Counseling with Jeimy Cook, Genetic counselor completed 12/27/18 prior to amniocentesis Genetic Amniocentesis 12/27/18 NICU consultation completed 03/20/[address] Elgin Alarcon was reminded to call Dr. Baca's office with any medical issues or concerns. Angela Alarcon states understanding of information provided today. All Angela Alarcon's questions were addressed by Dr Eisenberg. FCT contact information was reviewed. The Care Team will continue tofollow and support Angela Alarcon. Hortencia Rodriguez RN, BSN Care Plaster Model [employer] Maker [phone] * Hortencia Rodriguez RN - 02/26/2019 2:19 PM CDT Images from the original note were not included. [facility] CARE TEAM [address] [place] [address] CARE TEAM CONSULT NOTE To view Reports/Consultation notes please visit the below tabs in Chart Review: Ultrasound Reports-???Images?? tab MFM Consultation (if applicable)- Media tab Pediatric Specialty Consultation- Notes tab PRIMARY FCT COORDINATOR: Hortencia Rodriguez RN PATIENT DEMOGRAPHICS: PATIENT NAME: Angela Alarcon DATE OF : 1985 PATIENT Estimated Date of Delivery: 04/27/19 /PARA : DRUG ENFORCEMENT ADMINISTRATION AGENT: Dr. Baca DIAGNOSIS: Trisomy 18 with multiple anomalies MATERNAL: History of T incision on uterus DELIVERY PLAN: Repeat scheduled c/s 04/01/19 at 0745 Consultation Note: Received a call from Angela Alarcon today requesting a NICU consult. Angela has been seeing Dr. Baca regularly in the office as well as having her ultrasound there. I anticipate scheduling at the patient's requested date of 03/20/19. Care Appointment: Continue routine care appointments with Dr Baca. Angela is also having her ultrasounds in Dr. Baca's office Surveillance: Last Growth: 12/26/18 Comprehensive Ultrasound at 22w4d 01/24/19 f/u at a 4 week interval was cancelled by patient All additional testing has been completed at Dr. Baca's office Consultations: Genetic Counseling with Jeimy Cook, Genetic counselor completed 12/27/18 prior to amniocentesis Genetic Amniocentesis 12/27/18 NICU consultation is scheduled 03/20/[address] Elgin Baca was updated by Hortencia Rodriguez RN by [employer] inbox note Angela Alarcon was reminded to call Dr. Baca's office with any medical issues or concerns. Angela Alarcon states understanding of information provided today. FCT contact information was reviewed. The Care Team will continue to follow and support Angela Alarcon. Hortencia Rodriguez RN, BSN Care Plaster Model And Mold Maker [phone] * Hortencia Rodriguez RN - 12/27/2018 2:03 PM CDT Images from the original note were not included. [facility] CARE TEAM [address] [place] [address] CARE TEAM ENROLLMENT CONSULT NOTE To view Reports/Consultation notes please visit the below tabs in Chart Review: Ultrasound Reports-???Images?? tab MFM Consultation (if applicable)- Media tab Pediatric Specialty Consultation- Notes tab PRIMARY FCT COORDINATOR: Hortencia Rodriguez RN PATIENT DEMOGRAPHICS: PATIENT NAME: Angela Alarcon DATE OF : 1985 PATIENT ESTIMATED DUE DATE: 04/27/19 /PARA: DRUG ENFORCEMENT ADMINISTRATION AGENT: Dr. 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 T incision on uterus DELIVERY PLAN: At [facility] with Dr. Baca ENROLLMENT NOTE: A referral to the Care Team is made by Leland. I met with Angela Alarcon for an initial consult in the [facility] on 12/26/18, following a scheduled ultrasound and again on 12/27/18 when the patient was here for a scheduled genetic amniocentesis. The Care Team and the role of the Nurse Coordinators was discussed. Pt was receptive to being followed by the team.Contact information was exchanged. Ultrasound findings and the following plan of care were reviewedwith patient by Dr Ha. The amniocentesis was performed by Dr. Ha on 12/27/18 Care Appointment: Co-mangangement of this patient by [facility] and Dr. Baca Surveillance: Last Growth: 12/26/18 Comprehensive Ultrasound at 22w4d Next Growth: 01/24/19 f/u at a 4 week interval Plan: TBD Consultations: Genetic Counseling with Jeimy Cook Genetic counselor completed 12/27/18 prior to amniocentesis Genetic Amniocentesis 12/27/18 Additional consultation as indicated Dr. Baca was updated per Dr. Ha via phone call on 12/26/18. Angela was reminded to call Dr. Baca's office with any medical issues or concerns. All Angela Huttonsekoujaron's questions were addressed by Dr Ha. Patient states understanding of information provided today. FCT contact informationreviewed. The Care Team will continue to follow and support Angela Alarcon. Hortencia Rodriguez RN, BSN, RNC-OB Care Plaster Model And Mold Maker [phone] documented in this encounter H&P Notes * Irlanda Amse DO - 04/01/2019 6:21 AM CDT OB History & Physical HPI: Angela Alarcon is a 33 y.o. @ 36w2d who presents for repeat C- section. Her pregnancyhas been complicated by Trisomy 18, followed by FCT and S/P consultation with NICU. Of note, previous section was an inverted T incision. Patient reports good movement, denies contractions, vaginal bleeding, or leakage of fluid. No complaints. Her primary OB is Terrie Baca MD. ROS: As above. Denies nausea, vomiting, chest pain, shortness of breath, headache, or vision symptoms. OB Hx: OB History Para Term AB Living 3 1 1 0 1 1 SAB TAB Ectopic Multiple Live Births 1 0 0 0 1 # Outcome Date GA Lbr Ryan/2nd Weight Sex Delivery Anes PTL Lv 3 Current 2 Term 08/21/17 40w2d 4139 g (9 lb 2 oz) M CS-LTranv EPI N WILY Comments: No observed anomalies 1 SAB 08/2016 SAB PMHx: Anxiety, H/o congenital heart defect (spontaneously resolved), GERD, IBS Medications: PNV, Zoloft , Ambien Allergies: No Known Allergies PSHx: Past Surgical History: Procedure Laterality Date ??? HX DILATION AND CURETTAGE ??? HX LEEP PROCEDURE 2015 ??? HX WISDOM TEETH EXTRACTION ??? ID DELIVERY ONLY N/A 08/21/2017 SECTION performed by Terrie Baca MD at [facility] L&D ??? ID COLONOSCOPY FLX DX W/COLLJ SPEC WHEN PFRMD 06/06/2013 COLONOSCOPY performed by Xavi Aquino MD at [facility] ??? ID ESOPHAGOGASTRODUODENOSCOPY TRANSORAL DIAGNOSTIC 06/06/2013 ESOPHAGOGASTRODUODENOSCOPY performed by Xavi Aquino MD at [facility] ??? ID HYSTEROSCOPY,W/ENDO BX N/A 08/11/2016 HYSTEROSCOPY WITH DILATATION AND CURETTAGE SUCTION performed by Dustin Bill MD at [facility] ??? ID ORAL SURGERY COAT BASTER Hx: +H/o abnormal pap smears S/P LEEP in 2015. Denies h/o STIs. FHx: Negative for genetic tendencies, frequent miscarriage or bleeding disorders. SHx: Denies tobacco, alcohol, or illicit drug use; feels safe at home. Physical Exam: LMP 07/15/2018 General: well-developed, well-nourished female in NAD HEENT: NCAT, moist mucus membranes Heart: acyanotic Lungs: unlabored respirations Abdomen: gravid, NT Extremities: no edema or calf tenderness FHR: 120, mod variability, +accels, no decels [place]: q2-3min Assessment/Plan: 33 y.o. @ 36w2d admitted for repeat 1. Indication for : previous (inverted T incision) 2. status reassuring: NST reactive 3. labs: O+, Rub imm / HIV neg / RPR NR / HepB neg 4. The risks, benefits, indications, and alternatives of were reviewed with the patient. Informed consent was obtained. All questions were answered. Will proceed with as planned. 5. SCDs and pre-op antibiotics for prophylaxis 6. RN discussed with Dr. Baca. Irlanda Ames DO PGY3 HOME AND SCHOOL VISITOR Resident Pager#: [phone] documented in this encounter Consult Notes * Teresa Eisenberg MD - 03/20/2019 3:51 PM CDT Name Angela Alarcon 1985 Neonatology Consult 03/20/19 I was asked by Dr. Baca to speak with the patient for abnormal due to Trisomy 18, currently at 34 4/7 weeks gestation, and a desire for comfort care for the baby following delivery. She is a 33 yo woman. Her LEXIE is 04/27/19, and she is having a girl (Flaco). labs are O positive, and hepatitis B and RPR negative. Trisomy 18 was diagnosed by amniocentesis, and associatedanomalies include bilateral choroid plexus cysts, hypotelorism, clenched fists, clubbed and rocker bottom feet, left pyelectasis, and VSD (with question of abnormality of arch on most recent ultrasound). The patient and her have an 18 mo son (Bob) who is healthy; he is cared for by Dr. Melo Rey in [place], [place]. I spent 19 minutes in face to face consultation with the patient, her , and Hortencia from the Care Team, more than half of which was spent in counseling and coordination of care. The patient articulated clearly the couple's desire to provide only care that would bring comfort to Flaco following delivery. After some discussion, those interventions desired were noted to includedrying, warming, suctioning, and stimulating Flaco before she is held by her parents; further, theyrequest oxygen via nasal cannula (or briefly by mask) if it is for comfort. They do not desire intubation, compressions, or resuscitation medications; they are considering whether they might request a brief period of PPV via mask if Keo is apneic at delivery, and I assured them this could be decided in the moment. They asked about feedings, and we discussed both oral feedings, as well as comfort feedings by gavage tube if desired. The patient and her asked about timing, and I explained that every baby is different: sometimes it is minutes to hours, and sometimes it can be weeks to months, but it is usually somewhere inbetween. I encouraged the couple to consider NICU attendance at delivery to help with the initial assessment and in case they have questions about or change their mind about interventions. I explained that care is then turned over the L&D staff, the NICU will remain available. I encouraged the couple to involve their son in the time they spend with Flaco following , including taking photographs of the children together and creating some mementos for Bob to have as he grows up. We discussed how care will proceed if Flaco lives for 12-24 hours: the patient will be transferred to [facility] and Flaco will be admitted to the NICU, but she will be able to be in the room with the family as much as they desire. The NICU will provide any care Flaco needs, and Flaco may be placed in a NICU room on monitors while the family rests, if they desire. We discussed possibly obtaining an echocardiogram to better define the heart lesion (and possibly better understand the life expectancy) if they desire. I explained that we would need to assess Flaco's heart rate periodically and occasionally monitor her temperature (for comfort), but that she wouldn't necessarily need more invasive monitoring (including BP). We discussed steps to discharge planning if Flaco remains stable and they feel ready to take her home. In particular, I explained that discharge would include nursing support and coordination with Dr. Hinson. We did not discuss routine care, such as vitamin K and metabolic screening, but these can be deferred during the immediate period, and then discussed at the time of NICU admission (if needed). Thank you for this interesting consult. Please call with any questions. Teresa Eisenberg MD documented in this encounter OR Notes * Anesthesiology - Hilda Remy MD - 04/02/2019 10:13 AM CDT Epidural Catheter Removal Epidural catheter was discontinued in accordance with plan to discontinue pain management epidural.Tip was intact. Site is clean dry and without erythema. Hilda Remy MD 04/02/2019 10:14 AM * Anesthesiology - Micheline Carter MD - 04/02/2019 6:49 AM CDT Post - Operative Pain Service Note Post op day #1. Epidural 04/01/19 0844-Rate: 2 (04/01/19 08) Epidural medication: Demerol Vitals: Pulse: 81 (04/02/19 0405) BP: 106/69 (04/02/19404) Resp: 17 (04/02/19404) Temp: 36.5 ??C (04/02/19404) VPS Pain Rating: Rest: 4 (04/02/19634) Description: Quality: aching (04/02/19634) Epidural dressing inspected. Clean, dry no erythema. Bottom part of opsite starting to loosen. New opsite placed over with good adherence. Sedation: no Pruritis: no Nausea/vomitting: no Plan: Pt feels some dysphoria when she pushes her button but is not quite comfortable enough without pushing the button. Baby is worsening this morning so would like to be clear-headed. Reduced bolusdose to 1 ml from 2 ml. Patient probably wants out sometime today so will have RN call us. Micheline Carter MD * Anesthesiology - Micheline Carter MD - 04/02/2019 6:49 AM CDT OB Anesthesia Post-Operative Assesment 04/02/2019 6:49 AM Angela A Sczurko, status post regional anesthesia for section. Patient seen and evaluated: Respiratory Function Resp: 17 (04/02/19404) SpO2: 99 % (04/02/19404) Able to breathe and cough freely Able to maintain O2 saturation greater than 92% on room air Cardiovascular Function BP: 106/69 (04/02/19404) BP within 20% of preanesthetic level Mental Status, Neuro Fully awake Able to move 4 extremities voluntarily. No focal sensory deficits or weakness. Temperature Temp: 36.5 ??C (04/02/19404) Pain Pain Rating: Rest: 4 (04/02/19634) Presence of Pain: complains of pain/discomfort (04/02/19634) Postoperative Hydration Intake/Output Summary (Last 24 hours) at 04/02/2019648 Last data filed at 04/02/201936 Gross per 24 hour Intake 2767.4 ml Output 6230 ml Net -3462.6 ml Nausea and Vomiting Able to drink fluids, no nausea, no vomiting Narrative No apparent Anesthesia related complications Micheline Carter MD 04/02/2019 6:49 AM * Operative Report - Terrie Baca MD - 04/01/2019 9:00 AM CDT Section Operative Note Date of Procedure: 04/01/2019 Procedure: repeat low transverse section via Pfannenstiel incision Pre-operative Diagnosis: 1. 33 y.o. with IUP @ 36w2d 2. previous inverted T incision 3. Trisomy 18 Post-operative Diagnosis: same Surgeon: Terrie Baca MD Pipe Fitter Marine: Brenda Armstrong MD Anesthesia: CSE EBL: 330 mL Urine Output: 300 mL clear urine in Abad bag after procedure Specimen(s): cord blood for ABO typing Antibiotics: 2g Ancef Operative Complications: none Indications: Please see pre-op diagnosis above, H&P and most recent progress notes for further details. Findings: Gestational Age: 36w2d Date of Delivery: 04/01/2019 Time of Delivery: 8:19 AM Sex: Female Delivery Type: , Low Transverse Delayed Cord Clamping: (Refer to Delivery Summary) Weight: Refer to Delivery Summary. 1 Minute: Refer to Delivery Summary. 5 Minutes: Refer to Delivery Summary. Team present at delivery? yes Nuchal cord: none Placenta: manual removal; complete, 3 vessel cord Maternal anatomy: tubes and ovaries appeared normal; thin lower uterine segment with thin area fromprevious inverted T incision Procedure Details After informed consent, placement of [...] from the underlying rectus tissue superiorly and inferiorly. The peritoneum was identified and entered. Peritoneal incision was extended with good visualization of bowel & bladder. Bladder blade was placed and the vesico-uterine reflection was incised transversely. The bladder flap was bluntly freed from the lower uterine segment and the bladder blade was reinserted. A low transverse uterine incision was made with the scalpel. This incision was extended laterally digitally. Infant was delivered as noted in the findings above. The umbilical cord was doubly clamped and cut & the was handed to the nurse. The placenta was removed as noted above. The uterus was exteriorized & cleared of c lot & debris. The uterine incision was approximated with 0 biosyn in a running, locking stitch in a single layer. The posterior cul de sac was manually cleared of clot and blood. Hemostasis was observed. The uterus was returned to anatomic position. The pericolic gutters were manually cleared of clot and blood. The uterine incision was re-inspected & noted to be hemostatic. The peritoneumwas closed with 2-0 polysorb in a running stitch. The rectus muscles were reapproximated with a horizontal mattress and single interrupted suture of 0 Biosyn The subfascial tissues were noted to be hemostatic. The fascia was then closed with 0 polysorb in a running stitch. The subcutaneous tissue was irrigated & made hemostatic with the Bovie. The subcutaneous tissue was approximated with 0 plain gut suture in a running stitch. The skin was closed with 4-0 biosyn, followed by a sterile dressing. Instrument, sponge, and needle counts were correct times three per nursing. Antibiotics were given prior to incision. The patient tolerated the procedure well and was taken to recovery in stable condition. Infant underwent comfort care with NICU. Brenda rAmstrong MD documented in this encounter Miscellaneous Notes * Care Plan - Hannah Laura - 04/03/2019 1:55 PM CDT Personnel Research Psychologist initiated an encounter with Angela and her , Alvin, in response to the of their daughter, Flaco. Angela was holding Flaco at the time of this encounter. Their emergency communications dispatcher has been involved with them since Flaco's . I offered poems and prayers that they could use as options forFlaco's and burial. They were accepting of these. Laura Young [facility] Zone phone [phone] * Care Plan - Millie Vargas RN - 04/03/2019 12:42 PM CDT Angela is requesting to be discharged home today with her . She is moving independently in the room. Voiding spontaneously. Tolerating her diet. Pain controlled with PO medications. Discharge instructions were reviewed with the patient and her spouse; she verbalized understanding. Scripts were delivered from pharmacy. Angela and her are spending some time with baby Flaco before they leave the hospital. This RN will continue to check in and will transport her out. Millie Vargas RN * Care Plan - Millie Vargas RN - 04/02/2019 4:56 PM CDT Patient has been spending time with her baby, Flaco. Emotional support has been provided. She is able to move independently. Voiding spontaneously. Lochia light. Pain controlled with PO medications. VSS. Will continue to monitor. * Care Plan - Pina Montemayor RN - 04/02/2019 6:23 AM CDT Patient up to bathroom twice with RN. Denies Nausea. Tolerating regular diet. I&O and VS WNL. Abad discontinued overnight, pt now voiding spontaneously. Pain is controlled with Tylenol, Motrin, and Epidural. SCD's applied and IS used with encouragement. Pt is in room with family bonding with baby overnight. Emotional support provided. * Care Plan - Lidia Mercedes RN - 04/01/2019 6:30 PM CDT Angela has been spending time with baby Flaco, Alvin, and family. Emotional support provided. Pain controlled with Tylenol, Motrin, and Epidural. Tolerating regular diet. Abad draining to gravity. Lochia WNL. VSS. Will continue to monitor. * Treatment Plan - Trey Keller PCT - 04/01/2019 6:04 AM CDT Images from the original note were not included. STL LB Vaginal Protocol [facility] Approved by: [facility] - Medical Executive Committee Approval Date: 01/17/2019 ORDERS ARE ENTERED ???PER PROTOCOL?? Follow this protocol for all induction, augmentation and spontaneous labor patients. Enter the protocol in the patient's electronic health record using smartphrase: .vaginalbirthprotocol Orders for Care at Initial Presentation: o Initiate Labor, Delivery and -vaginal pathway o Notify provider after initial assessment o Vital Signs per unit policy o Evaluate cervical status vaginal examination o Up ad radha o Continuous external electronic monitoring: o Intake and output q 8 hours: o Scale weight on admission o Clear liquid diet as indicated o Insert straight catheter for bladder distention if patient unable to void o Verify informed consent o Patient may assume a position according maternal and tolerance o Complete hemorrhage risk assessment on admission o Verify that patient is given antibiotics for group B strep if indicated o Education on smoking cessation and second-hand smoke avoidance o FULL CODE Laboratory Orders: o Cord blood evaluation if mother's blood is O positive or Rh negative o Blood bank draw and hold Medication Orders o If not already in place, establish peripheral IV access and infuse Lactated Ringer's solution at 125 mL/hour IV o Administer fluid bolus per anesthesia within 30 minutes prior to anesthesia placement o Sodium chloride 0.9% (normal saline) flush 5 mLs every 12 hours when locked o Sodium chloride 0.9% (normal saline) flush 5 mLs PRN before and after medication or to verify line patency o Terbutaline (BRETHINE) 0.25 mg injection SQ, one time PRN, for tachysystole in the presence of Category 2 or Category 3 FHR tracing after consultation with provider o Ondansetron (ZOFRAN) 4 mg IV, every 6 hours PRN o Penicillin g potassium load dose 5 million units, IV, ONE TIME ONLY if GBS positive and NO ALLERGIES o Penicillin g maintenance dose 2.5 million units, IV, EVERY 4 HOURS if GBS positive and NO ALLERGIES o Lidocaine 2% (XYLOCAINE) injection ONE time, PRN for perineal repair For Post- hemorrhage (Physician consultation required before administration for [...] after consultation with resident or attending physician. ? Tranexamic Acid IVPB 1,000 mg, IV, ONE time PRN after physician consultation. Nursing Communication Orders: INTRAUTERINE RESUSCITATION If the heart rate (FHR) pattern is indeterminate (category II) or abnormal (category III), the following measures will be initiated based on maternal- response: o Lateral positioning o IV fluid bolus of 500 mL Lactated Ringer's solution o Discontinuation of oxytocin if infusing o Removal of Cervidil o Oxygen at 10 L/min via non-rebreather facemask o Modification of maternal pushing efforts during second stage labor TREATMENT OF TACHYSYSTOLE Normal (Category I) FHR Pattern o Maternal repositioning (left or right lateral position) o IV fluid bolus of approximately 500 mL lactated Ringer's solution o If uterine activity has not returned to normal after 10 min, decrease oxytocin rate by at least half; if uterine activity has not returned to normal after 10 more min, discontinue oxytocin until uterine activity is no more than five contractions in 10 min. Indeterminate (Category II) or Abnormal (Category III) FHR Pattern o Discontinue oxytocin o Maternal repositioning (left or right lateral position) o IV fluid bolus of approximately 500 mL of lactated Ringer's solution o Consider oxygen at 10 L/min via non-rebreather facemask if there is minimal to absent variabilityand/or recurrent late or prolonged decelerations (discontinue as soon as possible). Resumption of Oxytocin Administration After Discontinuation Due to Indeterminate (Category II) or Abnormal (Category III) FHR Pattern and/or Tachysystole o If the infusion has been discontinued for less than 30 minutes, the FHR is normal (Category I) and uterine activity has returned to normal, oxytocin may be restarted at no more than one half of therate that resulted in the indeterminate (Category II) or abnormal (Category III) FHR and/or uterine tachysystole and then increased at 2 milliunits or less per minute every 30 minutes as per protocol. o If the infusion has been discontinued for more than 30 minutes, the FHR is normal (Category I) and uterine activity has returned to normal, oxytocin may be restarted if indicated at no more than 1 milliunit per minute and increased by 2 milliunits or less per minutes no sooner than every 30 minutes as per protocol. PRE-OPERATIVE CARE FOR FOLLOWING FAILED LABOR: o In-patient Anesthesia consult o Continuous monitoring via current method until abdominal prep o Abad catheter if not already in place o Patient may assume a position in bed according to maternal and tolerance o Prep surgical site o Verify informed consent o Diet: strict NPO o If not already in place, establish peripheral IV access and infuse lactated Ringer's solution at 125 mLs/hour o Place intermittent pneumatic compression device Laboratory Orders for following Failed Labor: ??? Type and screen ??? CBC with differential STL LB Pre-Operative Protocol [facility] Approved by: [facility] - Medical Executive Committee Approval Date: 01/17/2019 ORDERS ARE ENTERED ???PER PROTOCOL?? Follow this protocol for all section patients (scheduled and unscheduled). Enter the protocol in the patient's electronic health record using smartphrase: .cesareanbirthprotocol Nursing Orders: o Initiate the Pathway o Notify physician upon admission o In-patient anesthesia consult o Full Code o Vital signs per unit policy o Electronic monitor o Insert peripheral IV o Lactated Ringer's solution at 125mL/hr o Insert abad catheter to bedside drainage o Position patient according to maternal and tolerance o Verify informed consent o Diet: strict NPO o Education on smoking cessation and second-hand smoke avoidance o Prep surgical site o Confirm heart rate immediately prior to abdominal prep o Place pneumatic compression devices (If calf circumference exceeds 26 inches, contact physician for alternative therapy. Laboratory Orders: o Type and screen (antibody will be reflexively ordered on positive antibody screens) o CBC with differential (Manual differential will be performed if appropriate) Medication Orders ? Lactated Ringer's solution at 125 mL/hr IV ? IV flush panel: ? Sodium chloride 0.9% (normal saline) flush 5mLs IV every 12 hours when locked ? Sodium chloride 0.9% (normal saline) flush 5mLs IV before and after medications or to verify linepatency ? ceFAZolin (ANCEF) 2,000 mg, IV, PRE-PROCEDURE ONCE for patient weight less than 120 kg if NO ALLERGY ? ceFAZolin (ANCEF) 3,000 mg IV, PRE-PROCEDURE ONCE for patient weight greater than or equal to 120kg if NO ALLERGY ? Azithromycin (ZITHROMAX) 500 mg IVPB, pre-procedure ONCE for failed labor or rupture of membranes For Post- hemorrhage (Physician consultation required before administration for [...] after consultation with resident or attending physician. ? Tranexamic Acid IVPB 1,000 mg, IV, ONE time PRN after physician consultation. Adult Influenza and/or Pneumococcal Vaccine Protocol [facility] ORDERS ARE ENTERED ???PER PROTOCOL?? Enter [...] Nursing Leadership, Pharmacy & Therapeutics CommitteeDate: 01/2018 documented in this encounter Plan of Treatment Upcoming Encounters Date Type Department Care Team (Late st Contact Info) Description 10/08/2024 9:45 AM CDT Office Visit [facility] [employer] AND [employer] VISITOR - Medical [place] [address] [place] [address] Terrie Baca MD [address] [place] [address] documented as of this encounter Procedures Procedure Name Priority Date/Time Associated Diagnosis Comments SECTION 04/01/2019 7:47 AM CDT EDC 04/27 labs in outside records 12/26 * Hx of classical Trisomy 18 CBC WITH DIFFERENTIAL Routine 04/01/2019 6:09 AM CDT TYPE AND SCREEN Routine 04/01/2019 6:09 AM CDT documented in this encounter Results * CBC WITH DIFFERENTIAL (04/01/2019 6:09 AM CDT) WBC 8.9 4.0 - 9.8 K/uL 04/01/2019 6:27 AM CDT [facility] - [facility] RBC 3.99 3.90 - 4.90 M/uL 04/01/2019 6:27 AM CDT [facility] - [facility] HEMOGLOBIN 12.1 11.8 - 14.8 g/dL 04/01/2019 6:27 AM CDT [facility] - [facility] HEMATOCRIT 37.2 35.5 - 44.0 % 04/01/2019 6:27 AM CDT [facility] - [facility] MCV 93.2 82.0 - 99.0 fL 04/01/2019 6:27 AM CDT [facility] - [facility] MCH 30.3 27.2 - 32.6 pg 04/01/2019 6:27 AM CDT [facility] - [facility] MCHC 32.5 31.5 - 35.5 g/dL 04/01/2019 6:27 AM CDT [facility] - [facility] RDW 13.2 11.5 - 14.5 % 04/01/2019 6:27 AM CDT [facility] - [facility] RDW-STDEV 44.5 37.1 - 48.7 fL 04/01/2019 6:27 AM CDT [facility] - . [facility] PLATELETS 255 140 - 350 K/uL 04/01/2019 6:27 AM CDT [facility] [facility] - . [facility] MPV 9.7 9.3 - 12.4 fL 04/01/2019 6:27 AM CDT [facility] - . [facility] NEUTROPHILS 74 % 04/01/2019 6:27 AM CDT [facility] - . [facility] LYMPHOCYTES 15 % 04/01/2019 6:27 AM CDT [facility] MONOCYTES 11 % 04/01/2019 6:27 AM CDT [facility] - [facility] EOSINOPHILS 0 % 04/01/2019 6:27 AM CDT [facility] BASOPHILS 0 % 04/01/2019 6:27 AM CDT [facility] - [facility] IMMATURE GRANULOCYTES 0 % 04/01/2019 6:27 AM CDT [facility] - . [facility] NEUTROPHIL ABSOLUTE 6.56 1.90 - 7.00 K/uL 04/01/2019 6:27 AM CDT [facility] - . [facility] LYMPHOCYTE ABSOLUTE 1.29 0.70 - 4.50 K/uL 04/01/2019 6:27 AM CDT [facility] - [facility] MONOCYTE ABSOLUTE 0.97 0.10 - 1.30 K/uL 04/01/2019 6:27 AM CDT [facility] [facility] - . [facility] EOSINOPHIL ABSOLUTE 0.04 0.00 - 0.70 K/uL 04/01/2019 6:27 AM CDT [facility] [facility] - . [facility] BASOPHILS ABSOLUTE 0.03 0.00 - 0.20 K/uL 04/01/2019 6:27 AM CDT [facility] [facility] - . [facility] IMMATURE GRANULOCYTES ABSOLUTE 0.03 0.00 - 0.03 K/uL 04/01/2019 6:27 AM CDT [facility] - . [facility] Blood Venipuncture / Unknown 04/01/2019 6:09 AM CDT 04/01/2019 6:21 AM CDT Terrie Baca MD HEMATOLOGY ORDERAB LES [employer] [facility] - [facility] PRIYANK# [id number] [address] [place] [address] * TYPE AND SCREEN (04/01/2019 6:09 AM CDT) ABO GROUP O 04/01/2019 6:09 AM CDT [facility] [facility] -- [facility] RH (D) TYPE Positive 04/01/2019 6:09 AM CDT [facility] [facility] -- [facility] ANTIBODY SCREEN Negative 04/01/2019 6:09 AM CDT [facility] [facility] -- [facility] Blood Venipuncture / Unknown 04/01/2019 6:09 AM CDT 04/01/2019 6:21 AM CDT Terrie Baca MD BLOOD BANK ORDERAB LES Performing Organization Address [facility] Co de Phone Number [employer] -- [facility] CLBLAIRE# [id number] [address] [place] [address] documented in this encounter Visit Diagnoses Not on filedocumented in this encounter Administered Medications Inactive Administered Medications - up to 3 most recent administrations Medication Order MAR Action Action Date Dose Rate Site acetaminophen (TYLENOL) tablet 650 mg 650 mg, Oral, EVERY 6 HOURS, 16 doses, First dose on Mon04/01/19 at 1445, Last dose on Mon04/05/19 at 0900, Routine Given 04/03/2019 8:12 AM CDT 650 mg Given 04/03/2019 2:06 AM CDT 650 mg Given 04/02/2019 8:04 PM CDT 650 mg carboprost tromethamine (HEMABATE) 250 mcg/mL injection 1 mL 1 mL (250 mcg), IM, EVERY 15 MINUTES PRN, 8 doses, Starting on Mon04/01/19 at 0550, Until Mon04/03/19 at 1509, Other (See Comment), for excessive bleeding in the immediate period as needed after consultation with resident or attending physician - Maximum of 8 doses, Routine hydrOXYzine HCl (ATARAX) tablet 25 mg 25 mg, Oral, EVERY 6 HOURS PRN, Starting on Mon04/01/19 at 1357, Until Mon04/03/19 at 1509, Anxiety, Routine Given 04/02/2019 5:48 PM CDT 25 mg ibuprofen (MOTRIN) tablet 600 mg 600 mg, Oral, EVERY 6 HOURS, 16 doses, First dose on Mon04/01/19 at 1445, Last dose on Mon04/05/19 at 0900, Routine Given 04/03/2019 8:12 AM CDT 600 mg Given 04/03/2019 2:06 AM CDT 600 mg Given 04/02/2019 8:04 PM CDT 600 mg methylergonovine maleate (METHERGINE) 0.2 mg/mL (1 mL) injection 0.2 mg 0.2 mg, IM, EVERY 15 MINUTES PRN, 2 doses, Starting on Mon04/01/19 at 0550, Until Mon04/03/19 at 1509, Other (See Comment), for excessive bleeding in the immediate period as needed after consultation with resident or attending physician - Maximum of 2 doses, Routine miSOPROStol (CYTOTEC) tablet 800 mcg 800 mcg, Rectal, ONE TIME PRN, 1 dose, Starting on Mon04/01/19 at 0550, Until Mon04/03/19 at 1509, Other (See Comment), Physician consultation required before administration for appropriate medication selection, Routine nalbuphine (NUBAIN) injection 2.5 mg 2.5 mg, IV, EVERY 3 HOURS PRN, 8 doses, Starting on Mon04/01/19 at 1249, Until Mon04/03/19 at 1509, Itching, Routine oxyCODONE (ROXICODONE) tablet 5 mg 5 mg, Oral, EVERY 4 HOURS PRN, Starting on Mon04/02/19 at 1037, Until Mon04/03/19 at 1509, Pain (See admin instructions), Routine Given 04/03/2019 12:12 PM CDT 5 mg Given 04/03/2019 8:12 AM CDT 5 mg Given 04/03/2019 2:18 AM CDT 5 mg oxyCODONE (ROXICODONE) tablet 5 mg 5 mg, Oral, EVERY 4 HOURS PRN, Starting on Mon04/02/19 at 1037, Until Mon04/03/19 at 1509, Pain (See admin instructions), Pain, Break-Through, Routine oxytocin in sodium chloride 0.9 % (PITOCIN) 20 units in 1,000 mL infusion IV, at 999 mL/hr, CONTINUOUS PRN, Starting on Mon04/01/19 at 0550, Until Mon04/03/19 at 1509, Other (See Comment), excessive bleeding in the immediate period, Routine oxytocin in sodium chloride 0.9 % (PITOCIN) 20 units in 1,000 mL infusion 125 mL/hr, IV, CONTINUOUS, Starting on Mon04/01/19 at 0945, Until Mon04/03/19 at 1509, Routine, PACU Rate Change 04/02/2019 1:53 AM CDT 20 mL/hr 20 mL/hr Rate Verify 04/01/2019 12:48 PM CDT 125 mL/hr 125 mL/hr Restarted 04/01/2019 12:44 PM CDT 125 mL/hr 125 mL/hr sertraline (ZOLOFT) tablet 50 mg 50 mg, Oral, DAILY, First dose on Mon04/01/19 at 1400, Until Discontinued, Routine Given 04/02/2019 8:04 PM CDT 50 mg Given 04/01/2019 10:53 PM CDT 50 mg zolpidem (AMBIEN) tablet 5 mg 5 mg, Oral, NIGHTLY PRN, Starting on Mon04/01/19 at 1238, Until Mon04/03/19 at 1509, Insomnia, Routine Given 04/03/2019 2:10 AM CDT 5 mg documented in this encounter Active and Recently Administered Medications Times are shown in CDT. Scheduled Medication Order 04/01/2019 04/02/2019 04/03/2019 acetaminophen (TYLENOL) tablet 650 mg 650 mg, Oral, EVERY 6 HOURS, 16 doses, First dose on Mon04/01/19 at 1445, Last dose on Mon04/05/19 at 0900, Routine 1445 (Refused - Provider: Lidia Mercedes RN)1501 (Given - Provider: Lidia Mercedes RN)1999 (Given - Provider: Pina Montemayor RN) 020 (Given - Provider: Pina Montemayor, ATTILA)0855 (Given - Provider: Millie Vargas, ATTILA)1440 (Given - Provider: Millie Vargas, ATTILA)2003 (Given - Provider: Pina Montemayor RN) 020 (Given - Provider: Pina Montemayor RN)08 (Given - Provider: Millie Vargas, ATTILA) ceFAZolin (ANCEF) 2,000 mg in dextrose (iso-osmotic) 100 mL IVPB (PREMIX) (COMPLETED) 2,000 mg, IV, ONE TIME ONLY, 1 dose, On Mon04/01/19 at 0645, Routine, Antibiotic Indication: Surgical prophylaxis 0743 (New Bag - Provider: Terrie Rey RN)0813 (Stopped - Provider: Terrie Rey RN) fentaNYL PF (SUBLIMAZE) 15 mcg/0.3 mL syringe 15 mcg (COMPLETED) 15 mcg, See Admin Instructions, INTRA-PROCEDURE ONCE, 1 dose, Starting on Mon04/01/19 at 0706, Until Mon04/01/19 at 0752, Routine 0752 (Given - Provider: Claudette Devi CRNA) flu vaccine quadrivalent 2019-20 6mos up(PF) (FLUARIX QUAD,FLULAVAL QUAD,FLUZONE QUAD) 60 mcg (15 mcg x 4)/0.5 mL syringe 60 mcg (COMPLETED) 60 mcg (0.5 mL), IM, ONE TIME ONLY, 1 dose, On Mon04/03/19 at 1200, Routine 1231 (Given - Provider: Millie Vargas RN) ibuprofen (MOTRIN) tablet 600 mg 600 mg, Oral, EVERY 6 HOURS, 16 doses, First dose on Mon04/01/19 at 1445, Last dose on Mon04/05/19 at 0900, Routine 1445 (Refused - Provider: Lidia Mercedes RN)1501 (Given - Provider: Lidia Mercedes RN)1999 (Given - Provider: Pina Montemayor RN) 0200 (Given - Provider: Pina Montemayor RN)0855 (Given - Provider: Millie Vargas, ATTILA)1440 (Given - Provider: Millie Vargas, ATTILA)2003 (Given - Provider: Pina Montemayor RN) 020 (Given - Provider: Pina Montemayor, ATTILA)0812 (Given - Provider: Millie Vargas, ATTILA) ketorolac (TORADOL) injection 30 mg (COMPLETED) 30 mg, IV, ONE TIME ONLY, 1 dose, On Mon04/01/19 at 0715, Routine, (OB POST-OP PAIN SERVICE) 0840 (Given - Provider: Claudette Devi CRNA) sertraline (ZOLOFT) tablet 50 mg 50 mg, Oral, DAILY, First dose on Mon04/01/19 at 1400, Until Discontinued, Routine 2253 (Given - Provider: Pina Montemayor, ATTILA) 2003 (Given - Provider: Pina Montemayor RN) Continuous Medication Order 04/01/2019 04/02/2019 04/03/2019 lactated ringers infusion (CANCELED) IV, at 125 mL/hr, PRE-PROCEDURE CONTINUOUS, Starting on Mon04/01/19 at 0600, Until Mon04/01/19 at 1231, Routine, Pre-op 0716 (New Bag - Provider: Terrie Rey RN)0747 (Continue from Pre-Op - Provider: Claudette Devi CRNA)0820 (Stopped - Provider: Claudette Devi CRNA) meperidine 5 mg/ml epidural (CANCELED) 2 mL/hr, Epidural, CONTINUOUS, Starting on Mon04/01/19 at 0730, Until Mon04/01/19 at 1156, Stat 0829 (New Bag - Provider: Claudette Devi CRNA) 1033 (Stopped - Provider: Millie Vargas RN) 0829 (Due: Stopped - Provider: Claudette Devi CRNA) meperidine 5 mg/ml epidural (CANCELED) 2 mL/hr, Epidural, CONTINUOUS, Starting on Mon04/01/19 at 1200, Until Mon04/02/19 at 1236, Stat 1200 (Canceled Entry - Provider: Lidia Mercedes RN - Comment: Medication started by another clinician. Exact start time unknown.) 0645 (New Bag - Provider: Micheline Carter MD - Comment: Bolus dose decreased from 2 to 1 ml.)1033 (Stopped - Provider: Millie Vargas RN) oxytocin in sodium chloride 0.9 % (PITOCIN) 20 units in 1,000 mL infusion 125 mL/hr, IV, CONTINUOUS, Starting on Mon04/01/19 at 0945, Until Mon04/03/19 at 1509, Routine, PACU 0944 (New Bag - Provider: Terrie Rey RN)1244 (Restarted - Provider: Lidia Mercedes RN)1248 (Rate Verify - Provider: Pina Montemayor RN) 0153 (Rate Change - Provider: Pina Montemayor RN)0153 (Stopped - Provider: Pina Montemayor RN) phenylephrine (RAMANA-SYNEPHRINE) 25 mg/250 mL 0.9% sodium chloride infusion (INTRA-OP USE ONLY) (CANCELED) 0.5 mcg/kg/min ? 81.2 kg (24.36 mL/hr, rounded to 24.4 mL/hr), IV, INTRA-PROCEDURE CONTINUOUS, Starting on Mon04/01/19 at 0715, Until Mon04/01/19 at 1114 0747 (New Bag - Provider: Claudette Devi CRNA)0827 (Rate Change - Provider: Claudette Devi CRNA)0830 (Rate Change - Provider: Claudette Devi CRNA)0837 (Rate Change - Provider: Claudette Devi CRNA)0853 (Stopped - Provider: Claudette Devi CRNA) PRN Medication Order 04/01/2019 04/02/2019 04/03/2019 carboprost tromethamine (HEMABATE) 250 mcg/mL injection 1 mL 1 mL (250 mcg), IM, EVERY 15 MINUTES PRN, 8 doses, Starting on Mon04/01/19 at 0550, Until Mon04/03/19 at 1509, Other (See Comment), for excessive bleeding in the immediate period as needed after consultation with resident or attending physician - Maximum of 8 doses, Routine hydrOXYzine HCl (ATARAX) tablet 25 mg 25 mg, Oral, EVERY 6 HOURS PRN, Starting on Mon04/01/19 at 1357, Until Mon04/03/19 at 1509, Anxiety, Routine 1748 (Given - Provider: Millie Vargas RN) methylergonovine maleate (METHERGINE) 0.2 mg/mL (1 mL) injection 0.2 mg 0.2 mg, IM, EVERY 15 MINUTES PRN, 2 doses, Starting on Mon04/01/19 at 0550, Until Mon04/03/19 at 1509, Other (See Comment), for excessive bleeding in the immediate period as needed after consultation with resident or attending physician - Maximum of 2 doses, Routine miSOPROStol (CYTOTEC) tablet 800 mcg 800 mcg, Rectal, ONE TIME PRN, 1 dose, Starting on Mon04/01/19 at 0550, Until Mon04/03/19 at 1509, Other (See Comment), Physician consultation required before administration for appropriate medication selection, Routine nalbuphine (NUBAIN) injection 2.5 mg 2.5 mg, IV, EVERY 3 HOURS PRN, 8 doses, Starting on Mon04/01/19 at 1249, Until Mon04/03/19 at 1509, Itching, Routine ondansetron (ZOFRAN) 4 mg/2 mL injection 4 mg 4 mg, IV, EVERY 6 HOURS PRN, Starting on Mon04/01/19 at 1250, Until Mon04/03/19 at 1249, Nausea/Emesis, Routine oxyCODONE (ROXICODONE) tablet 5 mg 5 mg, Oral, EVERY 4 HOURS PRN, Starting on Mon04/02/19 at 1037, Until Mon04/03/19 at 1509, Pain (See admin instructions), Routine 1239 (Given - Provider: Millie Vargas RN)1722 (Given - Provider: Millie Vargas, ATTILA)2133 (Given - Provider: Pina Montemayor RN) 0218 (Given - Provider: Pina Montemayor, ATTILA)0812 (Given - Provider: Millie Vargas, ATTILA)1212 (Given - Provider: Millie Vargas, ATTILA) oxyCODONE (ROXICODONE) tablet 5 mg 5 mg, Oral, EVERY 4 HOURS PRN, Starting on Mon04/02/19 at 1037, Until Mon04/03/19 at 1509, Pain (See admin instructions), Pain, Break-Through, Routine oxytocin in sodium chloride 0.9 % (PITOCIN) 20 units in 1,000 mL infusion IV, at 999 mL/hr, CONTINUOUS PRN, Starting on Mon04/01/19 at 0550, Until Mon04/03/19 at 1509, Other (See Comment), excessive bleeding in the immediate period, Routine zolpidem (AMBIEN) tablet 5 mg 5 mg, Oral, NIGHTLY PRN, Starting on Mon04/01/19 at 1238, Until 10/30/19 at 1509, Insomnia, Routine 0210 (Given - Provid er: Pina Montemayor RN) documented in this encounter Care Teams Assistant [employer] Of Content [employer] Delivery Relationship Specialty Start Date End Date Terrie Baca MD PCP - General Obstetrics and Gynecology 05/27/13 documented as of this encounter"
--- OUTSIDE RECORDS SUMMARY | 2024-05-27 15:11 | XMS_ITS | Encounter Summary ---
Author Organization [facility] Address [address] [place] [address] Care Team Providers Care Marketing Support Specialist Name Role Phone Terrie Manning MD Primary Care Provider [phone]- [phone] Reason for Visit * Reason Onset Date Comments Miscarriage 08/23/2016 Called Angela to follow up since her recent miscarriage. No answer. Left message with my contact information. Encounter Details Date Type Department Care Team ([facility] Contact Info) Description 08/23/2016 Telephone [facility] [address] [place] [address] Nisa Padron RN Miscarriage (Called Angela to follow up since her recent miscarriage. No answer. Left message with my contact information.) Social History Tobacco Use Types Packs/Day Years Used Date Smoking Tobacco: Never Alcohol Use Standard Drinks/Week Comments No 0 (1 standard drink = 0.6 oz pur e alcohol) Comments Yes Sex and Gender Information Value Date Recorded Sex Assigned at Not on file Gender Identity Not on file Sexual Orientation Not on file documented as of this encounter Plan of Treatment Upcoming Encounters Date Type Department Care Team ([facility] Contact Info) Description 10/08/2024 9:45 AM CDT Office Visit [facility] HYGIENE TEACHER - Medical [facility] [address] [facility] [address] [place] [address] Terrie Manning MD [address] [place] [address] [address] [place] [address] documented as of this encounter Visit Diagnoses Not on filedocumented in this encounter Care Teams Marketing Support Specialist Relationship Specialty Start Date End Date Terrie Manning MD PCP - General Obstetrics and Gynecology 05/27/13 documented as of this encounter
--- OUTSIDE RECORDS SUMMARY | 2024-05-27 15:11 | XMS_ITS | Encounter Summary ---
Author Organization [facility] Address [address] [place] [address] Care Team Providers Care Academic Associate Name Role Phone Bebeto Manning MD Primary Care Provider [phone]- [phone] Reason for Referral * Radiology Services (Routine) - Closed Specialty Diagnoses / Procedures Referred By Cheikh pichardo Referred To Contact Diagnoses Encounter for screening for malformation Abnormal ultrasonic finding on screening of mother Procedures US OB DETAIL SINGLE Bebeto Barrios MD [address] [address] Referral ID Status Reason Start Date Expiration Date V isits Requested Visits Authorized [id number] Closed [facility] CTS 12/26/2018 01/26/2019 1 1 Reason for Visit * Radiology Services (Routine) - Closed Specialty Diagnoses / Procedures Referred By Cheikh pichardo Referred To Contact Diagnoses Encounter for screening for malformation Abnormal ultrasonic finding on screening of mother Procedures US OB DETAIL Bebeto Spangler MD [address] [address] Referral ID Status Reason Start Date Expiration Date V isits Requested Visits Authorized [id number] Closed [facility] CTS 12/26/2018 01/26/2019 1 1 Encounter Details Date Type Department Care Team (Latest Contact Info) Description 12/26/2018 2:45 PM CDT - 12/26/2018 11:59 PM CDT Hospital Encounter [facility] Maternal and Ground Floor S [facility] [address] [place] [id number] Bebeto Manning MD [address] [facility] [address] [place] [address] Discharge Disposition: Home or Self [...] Sig Dispensed Refills Start Date End Date Vit 43-Kwir-QU-DSS (ADVANCED ) 90-1-50 mg Tablet Take 1 Tablet by mouth daily. 03/06/2019 documented as of this encounter Plan of Treatment Upcoming Encounters Date Type Department Care Team (Late st Contact Info) Description 10/08/2024 9:45 AM CDT Office Visit [facility] TRADE ANALYST - Medical [facility] [address] [address] Bebeto Manning MD [address] [facility] [address] [place] [address] documented as of this encounter Procedures Procedure Name Priority Date/Time Associated Diagnosis Comments US OB DETAIL SINGLE GEST Routine 12/26/2018 3:22 PM CDT Encounter for screening for malformation Abnormal ultrasonic finding on screening of mother documented in this encounter Results * US OB DETAIL SINGLE GEST (12/26/2018 3:22 PM CDT) Anatomical Region Laterality Modality Pelvis Ultrasound 12/26/2018 2:50 PM CDT Impressions 12/26/2018 4:29 PM CDT IMPRESSION ----- Here today for comprehensive anatomical survey and possible genetic counseling/genetic amniocentesis secondary to abnormal finding and PMDs office. The biometry is lagging with estimated weight at the 5th percentile AC at the 13 percentile with the H see FL and humeral length all lagging. The amniotic fluid volume is normal and there were movements noted. Right lateral normal-appearing placenta. 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 Urinary bladder appeared to be nomal and no other abnormalities were noted. 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 But this cannot be determined with certainty until after obtaining a genetic amniocentesis which will be able to analyze the karyotype in addition to any other testing such as MicroArray to rule out a abnormality at the gene level. By obtaining a genetic amniocentesis will help us further make a definitive diagnosis and also be able to better manage the case moving forward with the the supportive care or consultation with the proper pediatric subspecialty services. Depending on those findings will also determine comfort care or other care necessary during or after the . It would also help us manage her prenatally concerning any additional testing that may be required. Termination is not an option and they will continue with regardless of the subsequent findings on genetic testing. She had been offered screening genetic testing earlier in the but had opted not to have any testing at that time. They are interested in further testing including genetic counseling but unable to stay today they will return tomorrow morning for genetic counseling and genetic amniocentesis. In the meantime, they have been introduced to our genetic counselor and Hortencia from our Care Team in order to coordinate our multi-disciplinary team approach and any necessary consultations. The above was extensively discussed with Ms. Alarcon and her who understood the severity of condition; they also understood the limitation of ultrasound and genetic testing in detecting all congenital anomalies and chromosomal abnormalities inherited disorders or genetic syndromes. All questions were answered and they were reassured. Case was also discussed with Dr. Manning her primary OB provider. Narrative 12/26/2018 4:29 PM CDT STL Comp ----- Pat. Name: INESSA ALARCON Study Date: 12/26/2018 2:50pm Pat. NO: [id number] Referring ??MD: BEBETO MANNING MD Site: [facility] Aid Assembly Supervisor: Judie Scales : 1985 Age: 33 ----- INDICATION ----- Known or Suspected anomaly Previous CODING ----- Diagnosis ? O35.8XX0: Maternal care for suspected abnormality Unspecified Fetus ?Z3A.22: Weeks Gestation of Procedures ?44641: OB with Detail (Comprehensive) HISTORY ----- OB History ? 3. Para 1 MATERNAL ASSESSMENT ----- Physical Exam ? Weight 88 kg. BMI 27.20 kg/m?. METHOD ----- Transabdominal ultrasound examination ----- Cuadra . Number of fetuses: 1. DATING ----- Method of dating: based on the external assessment GA by stated dating 22 w + 4 d LEXIE by stated dating : 04/27/2019 Ultrasound examination on: 12/26/2018 GA by U/S based upon: AC, BPD, EFW, Femur, HC GA by U/S 21 w + 4 d LEXIE by U/S: 05/04/2019 Assigned: Dating performed on 12/26/2018, based on the external assessment Assigned GA 22 w + 4 d Assigned LEXIE: 04/27/2019 BIOMETRY ----- Main Biometry: BPD ? 54.6 ? mm ? 22w 4d ?48% ? Hadlock HC ?191.2 ?mm ? 21w 3d ?5% ?Hadlock Cerebellum tr ? 20.5 ? mm ? 20w 2d ?2% ?Sharif AC ?164.6 ?mm ? 21w 4d ?13% ? Hadlock Femur ? 34.6 ? mm ? 20w 6d ?4% ?Hadlock Humerus ? 34.1 ? mm ? 21w 4d ?17% ? Brian HC / AC ? 1.16 ?56% ? Nicolaides Weight Calculation: EFW ? 414 ?g ?21w 1d ?5% ?Hadlock EFW (lb,oz) ? 0 lb 15 ?oz EFW by ? Hadlock ([id number]) Head / Face / Neck Biometry: Cephalic index ?0.83 ?91% ? Nicolaides Debone Processing Supervisor ?6.0 ?mm ? CM ?5.7 ?mm ? 53% ? Nicolaides Outer IOD ? 32.4 ? mm ? 20w 6d ?3% ?Brian Extremities / Bony Struc Biometry: FL / BPD ?0.63 ? FL / HC ? 0.18 ? FL / AC ? 0.21 ? Tibia ? 31.9 ? mm ? 21w 6d ?23% ? Brian Other Structures Biometry: AF MVP ?6.3 ?cm ? FHR ? 148 ?bpm ? GENERAL EVALUATION ----- Cardiac activity present. FHR 148 bpm. movements present. Presentation cephalic. Placenta Placental site: right lateral. no previa. Umbilical cord Cord vessels: 3 vessel cord. Cord insertion: placental insertion: normal. Amniotic fluid Amount of AF: normal amount. MVP 6.3 cm. ANATOMY ----- The following structures appear abnormal: Head / Neck ? Right choroid plexus: cyst. Left choroid plexus: cyst. Cerebellum. Cisterna magna. Face ?Orbits. Heart / Thorax ?4-chamber view. Abdomen ? Left kidney: 1.1CM. Extremities / ? Right hand. Left hand. Right foot: clubbing. Left foot: clubbing. Skeleton The following structures appear normal: Head / Neck ? Cranium. Lateral ventricles. Midline falx. Cavum septi pellucidi. Thalami. Face ?Lips. Nose. Palate. Heart / Thorax ?Situs. Cardiac rhythm. ?Diaphragm. Abdomen ? Abdominal wall. Stomach. Right kidney. Bladder. Spine ? Cervical spine. Thoracic spine. Lumbar spine. Sacral spine. The following structures could not be adequately visualized: Face ?Profile. Gender: female. Impression: hypotelorism MATERNAL STRUCTURES ----- Cervix ?Visualized ?Approach - Transabdominal: Cervical length 40.2 mm Right Ovary ? Not visualized Left Ovary ?Not visualized COMMENT ----- Patient's name and date of were verified by the topper press operator before the exam FOLLOW-UP ----- As noted above she has opted to return tomorrow for genetic counseling and genetic amniocentesis. She was also introduced to the Care Team and genetic counselor today who will be meeting with her again tomorrow. Based on the findings of the genetic amnio also determine further management. Upon discussion tomorrow will also determine when she will be returning for follow-up ultrasound which would be within the next 3- 4 weeks. Thank you for allowing us to partake in your patient's care. Procedure Note Mj Ha DO - 12/26/2018 ST[facility] Comp ----- Pat. Name:Sonu ALARCON Date:12/26/2018 2:50pm Pat. NO: [id number] :BEBETO MANNING MD [facility]Judie Scales :1985Age:33 ----- INDICATION ----- Known or Suspected anomaly Previous CODING ----- Diagnosis O35.8XX0: Maternal care for suspected fetalabnormality Unspecified Fetus Z3A.22: Weeks Gestation of Procedures 33255: OB with Detail (Comprehensive) HISTORY ----- OB History 3. Para 1 MATERNAL ASSESSMENT ----- Physical Exam Weight 88 kg. BMI 27.20 kg/m?. METHOD ----- Transabdominal ultrasound examination ----- Cuadra . Number of fetuses: 1. DATING ----- Method of dating:based on the external assessment GA by stated dating 22 w + 4 d LEXIE by stated dating :04/27/2019 Ultrasound examination on:12/26/2018 GA by U/S based upon:AC, BPD, EFW, Femur, HC GA by U/S21 w + 4 d LEXIE by U/S:05/04/2019 Assigned:Dating performed on 12/26/2018, based on the externalassessment Assigned GA22 w + 4 d Assigned LEXIE:04/27/2019 BIOMETRY ----- Main Biometry: BPD 54.6 mm 22w 4d48% Hadlock HC 191.2 mm 21w 3d 5%Hadlock Cerebellum tr 20.5 mm 20w 2d 2%Sharif AC 164.6 mm 21w 4d13% Hadlock Femur 34.6 mm 20w 6d 4%Hadlock Humerus 34.1 mm 21w 4d17% Brian HC / AC 1.1656% Nicolaides Weight Calculation: EFW 414 g 21w 1d 5%Hadlock EFW (lb,oz) 0 lb 15 oz EFW by Hadlock ([id number]) Head / Face / Neck Biometry: Cephalic index 0.8391% Nicoakides Debone Processing Supervisor 6.0 mm CM 5.7 mm53% Nicolaides Outer IOD 32.4 mm 20w 6d 3%Brian Extremities / Bony Struc Biometry: FL / BPD 0.63 FL / HC 0.18 FL / AC 0.21 Tibia 31.9 mm 21w 6d23% Brian Other Structures Biometry: AF MVP 6.3 cm FHR 148 bpm GENERAL EVALUATION ----- Cardiac activity present. FHR 148 bpm. movements present. Presentation cephalic. Placenta Placental site: right lateral. no previa. Umbilical cord Cord vessels: 3 vessel cord. Cord insertion: placentalinsertion: normal. Amniotic fluid Amount of AF: normal amount. MVP 6.3 cm. ANATOMY ----- The following structures appear abnormal: Head / Neck Right choroid plexus: cyst. Left choroid plexus:cyst. Cerebellum. Cisterna magna. Face Orbits. Heart / Thorax 4-chamber view. Abdomen Left kidney: 1.1CM. Extremities / Right hand. Left hand. Right foot: clubbing. Leftfoot: clubbing. Skeleton The following structures appear normal: Head / Neck Cranium. Lateral ventricles. Midline falx. Cavumsepti pellucidi. Thalami. Face Lips. Nose. Palate. Heart / Thorax Situs. Cardiac rhythm. Diaphragm. Abdomen Abdominal wall. Stomach. Right kidney. Bladder. Spine Cervical spine. Thoracic spine. Lumbar spine.Sacral spine. The following structures could not be adequately visualized: Face Profile. Gender: female. Impression: hypotelorism MATERNAL STRUCTURES ----- Cervix Visualized Approach - Transabdominal: Cervical length 40.2mm Right Ovary Not visualized Left Ovary Not visualized COMMENT ----- Patient's name and date of were verified by the topper press operator beforethe exam FOLLOW-UP ----- As noted above she has opted to return tomorrow for genetic counseling andgenetic amniocentesis. She was also introduced to the Care Team and genetic counselor today who will be meeting with joselyn tomorrow. Based on the findings of the genetic amnio also determine furthermanagement. Upon discussion tomorrow will also determine when she will be returning for follow-up ultrasound which would be within thenext 3-4 weeks. Thank you for allowing us to partake in your patient's care. IMPRESSION ----- Here today for comprehensive anatomical survey and possible geneticcounseling/genetic amniocentesis secondary to abnormal finding and PMDs office. The biometry is lagging with estimated weight at the 5th percentileAC at the 13 percentile with the H see FL and humeral length all lagging. The amniotic fluid volume is normal and there were movementsnoted. Right lateral normal-appearing placenta. The anatomical survey showed multiple congenital malformations includingthe brain (bilateral WRINGER AND SETTER-choroid plexus cysts), hypotelorism, clenched fists, clubbed feet/rocker bottom feet, left sidedpyelectasis and CHD (Congenital heart defect)-VSD. Urinary bladder appeared to be nomal and no other abnormalities werenoted. Based on the above findings this is consistent with a chromosomalabnormality most likely aneuploidy such as a triploidy or trisomy and is most likely a lethal abnormality. But this cannot bedetermined with certainty until after obtaining a genetic amniocentesis which will be able to analyze the karyotype inaddition to any other testing such as MicroArray to rule out a abnormality at the gene level. By obtaining a genetic amniocentesis willhelp us further make a definitive diagnosis and also be able to better manage the case moving forward with the the supportive careor consultation with the proper pediatric subspecialty services. Depending on those findings will also determine comfort care orother care necessary during or after the . It would also help us manage her prenatally concerning any additional testingthat may be required. Termination is not an option and they will continue with pregnancyregardless of the subsequent findings on genetic testing. She had been offered screening genetic testing earlier in thepregnancy but had opted not to have any testing at that time. They are interested in further testing including genetic counseling butunable to stay today they will return tomorrow morning for genetic counseling and genetic amniocentesis. In the meantime, they have been introduced to our genetic counselor andKaren from our Care Team in order to coordinate our multi-disciplinary team approach and any necessary prenatalconsultations. The above was extensively discussed with Ms. Alarcon and her whounderstood the severity of condition; they also understood the limitation of ultrasound and genetic testing in detectingall congenital anomalies and chromosomal abnormalities inherited disorders or genetic syndromes. All questions were answered andthey were reassured. Case was also discussed with Dr. Manning her primary OB provider. Bebeto Manning MD ORDERABLES documented in this encounter Visit Diagnoses Diagnosis Encounter for screening for malformation Abnormal ultrasonic finding on screening of mother Abnormal findings on screening documented in this encounter Care Teams Academic Associate Relationship Specialty Start Date End Date Bebeto Manning MD PCP - General Obstetrics and Gynecology 05/27/13 documented as of this encounter
--- OUTSIDE RECORDS SUMMARY | 2024-05-27 15:11 | XMS_ITS | Encounter Summary ---
Author Organization [facility] Address [address] [place] [address] Care Team Providers Care Working Manager Name Role Phone Terrie Baca MD Primary Care Provider +1- [phone] Reason for Visit * Reason Comments Post- Care Encounter Details Date Type Department Care Team (Late st Contact Info) Description 05/14/2019 1:20 PM PERSONAL BANKING ASSISTANT Office Visit [facility] PARK ATTENDANT - Medical [address] [address] Terrie Baca MD [facility] [address] [address] Status post section routine follow-up (Primary [...] Sign Reading Time Taken Comments Blood Pressure 112/72 05/14/2019 1:15 PM PERSONAL BANKING ASSISTANT Pulse - - Temperature - - Respiratory Rate - - Oxygen Saturation - - Inhaled Oxygen Concentration - - Weight 75.7 kg (166 lb 12.8 oz) 019 1:15 PM PERSONAL BANKING ASSISTANT Height - - Body Mass Index 23.93 04/01/2019 6:25 AM CDT documented in this encounter Progress Notes * Terrie Baca MD - 05/14/2019 2:09 PM CST Chief Complaint: Post Visit HPI: Angela Alarcon is a 33 y.o. who is S/P LTCS. She has had signs of post depression and anxiety but it's controlled with her Zoloft. Physical Exam: Vitals: 05/14/19 1315 BP: 112/72 BP Location: Left arm Patient Position (BP): Sitting BP Cuff Size: Adult Weight: 75.7 kg (166 lb 12.8 oz) General: Well appearing female [...] Assessment and Plan: Angela Alarcon is a 33 y.o. who is s/p LTCS 6 weeks ago here today for a visit. 1. 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 Continue Zoloft. 3. Interested in condoms for contraception at this time. Risks, benefits, and alternatives reviewedwith the patient. She understands she should not get for 6-9 months. 4. Patient instructed to follow up in 3 months for well woman exam unless need arises prior. Terrie Baca MD ONAL BANKING ASSISTANT documented in this encounter Plan of Treatment Upcoming Encounters Date Type Department Care Team (Late st Contact Info) Description 10/08/2024 9:45 AM CDT Office Visit [facility] PARK ATTENDANT - Medical [address] [place] [address] [facility] [address] [place] [phone] Terrie Baca MD [address] [facility] [address] [address] documented as of this encounter Visit Diagnoses Diagnosis Status post section routine follow-up- Primary Routine follow-up documented in this encounter Care Teams Working Manager Relationship Specialty Start Date End Date Terrie Baca MD PCP - General Obstetrics and Gynecology 05/27/13 documented as of this encounter
--- OUTSIDE RECORDS SUMMARY | 2024-05-27 15:11 | XMS_ITS | Encounter Summary ---
Author Organization [facility] Address 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 OBJECTIVE: See flowsheet. ASSESSMENT: 33 y.o. at 32w4d wks PLAN: Trisomy 18. U/S and NICU consult next OV. C/S scheduled at 36 wks for prior T incision. Flu vaccine next OV. RTC 2 wks. Pt to call/come with further questions/concerns. Bebeto Baca MD documented in this encounter Miscellaneous Notes * Addendum Note - Bebeto Baca MD - 03/06/2019 4:53 PM CDTAddended by: BEBETO BACA on: 03/06/2019 04:53 PM Modules accepted: Orders documented in this encounter Plan of Treatment Upcoming Encounters Date Type Department Care Team (Late st Contact Info) Description 10/08/2024 9:45 AM CDT Office Visit [facility] PHYSICAL SECURITY SPECIALIST - [facility] [address] [address] Bebeto Baca MD [address] [place] [address] documented as of this encounter Procedures Procedure Name Priority Date/Time Associated Diagnosis Comments HEPATITIS B SURFACE ANTIGEN Routine 09/10/2018 RUBELLA IGG Routine 09/10/2018 CBC WITH DIFFERENTIAL Routine 09/10/2018 RPR Routine 09/10/2018 TYPE AND SCREEN Routine 09/10/2018 TSH Routine 09/10/2018 documented in this encounter Results * TSH (09/10/2018) ABSTRACTED TSH 0.47 [facility] Blood Historical Provider CHEMISTRY ORDERABLES Performing Organization Address [facility]/ZIP Co de Phone Number [facility] CLIA# [id number] [address] [place] [address] * RPR (09/10/2018) ABSTRACTED RPR NEGATIVE [facility] Blood Historical Provider CHEMISTRY ORDERABLES Performing Organization Address [facility]/ZIP Co de Phone Number [facility] CLIA# [id number] [address] [place] [address] * TYPE AND SCREEN (09/10/2018) ABSTRACTED ANTIBODY SCREEN NEGATIVE [facility] ABSTRACTED ABOGROUP O [facility] ABSTRACTED RH(D) TYPE POSITIVE [facility] Blood Historical Provider BLOOD BANK ORDERABLE S Performing Organization Address [facility]/State/ZIP Co de Phone Number [facility] CLIA# [id number] [address] [place] [address] * HEPATITIS B SURFACE ANTIGEN (09/10/2018) ABSTRACTED HEPATITIS B SURFACE AG NEGATIVE [facility] Blood Historical Provider CHEMISTRY ORDERABLES Performing Organization Address City/[facility] Co de Phone Number [facility] CLIA# [id number] [address] [place] [address] * RUBELLA IGG (09/10/2018) ABSTRACTED RUBELLA IGG 2.58 [facility] Blood Historical Provider CHEMISTRY ORDERABLES Performing Organization Address [facility] Co de Phone Number [facility] CLIA# [id number] [address] [place] [address] * CBC WITH DIFFERENTIAL (09/10/2018) ABSTRACTED HEMATOCRIT 40.4 [facility] ABSTRACTED HEMOGLOBIN 12.9 [facility] ABSTRACTED MCV 89.8 [facility] Blood Historical Provider HEMATOLOGY ORDERABLE S Performing Organization Address [facility] Co de Phone Number [facility] CLIA# [id number] [address] [place] [address] documented in this encounter Visit Diagnoses Diagnosis 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
--- OUTSIDE RECORDS SUMMARY | 2024-05-27 15:11 | XMS_ITS | Encounter Summary ---
Author Organization [facility] Address [address] [place] [address] Care Team Providers Care Evening Sitter Name Role Phone Terrie Manning MD Primary Care Provider +1- [phone] Reason for Visit * Reason Onset Date Comments 1 month follow up for loss 05/06/2019 Encounter Details Date Type Department Care Team (Late st Contact Info) Description 05/06/2019 Telephone [address] [place] [address] Lena Stoddard, RN 1 month follow up for loss Social History Tobacco Use Types Packs/Day Years [...] encounter Miscellaneous Notes * Telephone Encounter - Lena Stoddard, ATTILA - 05/06/2019 1:11 PM CST Called Angela to see how she is doing since it has been about a month since her daughter . She said she is doing okay and is keeping busy. Angela said her is coping well and they feel they are doing as well as they can be. She has a lot of support and is thankful for it. I encouraged her to call the office if she would like to talk in the future. She appreciated the follow up call. [employer] documented in this encounter Plan of Treatment Upcoming Encounters Date Type Department Care Team (Late st Contact Info) Description 10/08/2024 9:45 AM CDT Office Visit [facility] ASPHALT RAKER - [facility] [address] [place] [address] Terrie Manning MD [address] [place] [address] documented as of this encounter Visit Diagnoses Not on filedocumented in this encounter Care Teams Evening Sitter Relationship Specialty Start Date End Date Terrie Manning MD PCP - General Obstetrics and Gynecology 05/27/13 documented as of this encounter
--- OUTSIDE RECORDS SUMMARY | 2024-05-27 15:11 | XMS_ITS | Encounter Summary ---
Author Organization [facility] Address [address] [place] [address] Care Team Providers Care School Photograph Editor Name Role Phone Terrie Manning MD Primary Care Provider +1- [phone] Reason for Visit * Reason Onset Date Comments Results 01/11/2019 Karyotype Result s Encounter Details Date Type Department Care Team (Late st Contact Info) Description 01/11/2019 Telephone [facility] Genetic Counseling Maternal [address] [place] [address] Francisco J Cook CGC [address] [facility] [address] [place] [address] Results (Karyotype Results) Social History Tobacco Use Types Packs/Day Years [...] encounter Miscellaneous Notes * Telephone Encounter - Francisco J Cook CGC - 01/11/2019 1:59 PM CDT Spoke with Ms. Alarcon on the phone to disclose results of karyotype. Results were 47, XX, +18. These results are consistent with a Trisomy 18 diagnosis. Ms. Alarcon expressed understanding of these results and answered her questions. Told Ms. Alarcon to please feel free to call me with any questions or concerns. Karyotype results will be scanned into the media tab. documented in this encounter Plan of Treatment Upcoming Encounters Date Type Department Care Team (Late st Contact Info) Description 10/08/2024 9:45 AM CDT Office Visit [facility] NON PROFIT DIRECTOR - [facility] [address] [place] [address] Terrie Manning MD [address] [place], [place] [address] [address] documented as of this encounter Visit Diagnoses Not on filedocumented in this encounter Care Teams School Photograph Editor Relationship Specialty Start Date End Date Terrie Manning MD PCP - General Obstetrics and Gynecology 05/27/13 documented as of this encounter
--- OUTSIDE RECORDS SUMMARY | 2024-05-27 15:11 | XMS_ITS | Encounter Summary ---
Author Organization [facility] Address [address] [place] [address] Care Team Providers Care Relationship Management Lead Name Role Phone Terrie Baca MD Primary Care Provider +1- [phone] Reason for Visit * Reason Comments Post- Care Encounter Details Date Type Department Care Team (Late st Contact Info) Description 04/16/2019 2:40 PM RAILROAD BRAKE REPAIRER Office Visit [facility] DUMP ATTENDANT - Medical [address] [address] Terrie Baca MD [facility] [address] [address] Surgery follow-up (Primary Dx) Social History [...] Sign Reading Time Taken Comments Blood Pressure 128/76 04/16/2019 2:37 PM RAILROAD BRAKE REPAIRER Pulse - - Temperature - - Respiratory Rate - - Oxygen Saturation - - Inhaled Oxygen Concentration - - Weight 74.3 kg (163 lb 12.8 oz) 04/16/2019 2:37 PM RAILROAD BRAKE REPAIRER Height - - Body Mass Index 23.5 04/01/2019 6:25 AM CDT documented in this encounter Progress Notes * Terrie Baca MD - 04/16/2019 2:48 PM CST Chief Complaint: Patient here for section incision inspection HPI: Angela Alarcon is a 33 y.o. who delivered by low-transverse section. Patient has been doing well and presents today for inspection of her incision. Denies drainage, erythema at incision site, or fevers. Overall recovering well. Pain well controlled. Bowel and bladder function is normal. shortly after of Trisomy 18. She is doing as well as can be expected. Physical Exam: Vitals: 04/16/19 1437 BP: 128/76 BP Location: Right arm Patient Position (BP): Sitting BP Cuff Size: Adult Weight: 74.3 kg (163 lb 12.8 oz) Abdomen: Soft, non tender, non distended. No rebound or guarding. Incision: Clean, dry, intact. Skin edges well approximated. No erythema or induration. Assessment and Plan: Angela Alarcon is a 33 y.o. who delivered by section 2 weeks ago who is here today for incision inspection. 1. Patient recovering well and incision healing well. 2. Pain controlled. 3. Return to office in 4 weeks for post visit. 4. due to Trisomy 18-cont Zoloft daily and Xanax and Ambien prn. 5. Continue modified activities as tolerated. Call for problems. Terrie Baca MD ROAD BRAKE REPAIRER documented in this encounter Plan of Treatment Upcoming Encounters Date Type Department Care Team (Late st Contact Info) Description 10/08/2024 9:45 AM CDT Office Visit [facility] DUMP ATTENDANT - [facility] [address] [place] [phone] Terrie Baca MD [facility] [address] [address] documented as of this encounter Visit Diagnoses Diagnosis Surgery follow-up- Primary Follow-up examination, following unspecified surgery documented in this encounter Care Teams Relationship Management Lead Relationship Specialty Start Date End Date Terrie Baca MD PCP - General Obstetrics and Gynecology 05/27/13 documented as of this encounter
--- OUTSIDE RECORDS SUMMARY | 2024-05-27 15:11 | XMS_ITS | Encounter Summary ---
Author Organization [facility] Address [address] [place] [address] Care Team Providers Care Barn Manager Name Role Phone Terrie Manning MD Primary Care Provider [phone]- [phone] Reason for Visit * Auth/Cert Specialty Diagnoses / Procedures Referred By Contac t Referred To Contact Obstetrics Diagnoses eil [facility] Labor [address] [place] [address] Referral ID Status Reason Start Date Expiration Date Visits Re quested Visits Authorized [id number] 1 1 Encounter Details Date Type Department Care Team (Late st Contact Info) Description 08/21/2017 1:28 AM CDT Anesthesia Event [facility] Labor & [address] [place] [address] Sailaja Madera MD [address] [facility] [address] [place] [address] Ely Conde CRNA NO ADDRESS ON FILE Anesthesia Record Procedure Summary Procedure Name Responsible Anesthesiologist Anesthesia Start Time Anesthesia Stop Time SECTION (Abdomen) Sailaja Madera MD 08/21/17 0128 08/21/17 1208 Events Date Time Event Comment 08/21/2017 0118 Intended Opioids 0124 Pull Vitals 0128 An Start 0128 AN Equip Check Anesthesia eq uipment and materials checked in accordance with local policy. 0128 Quick Note The patient farhan nowledges that epidural analgesia and its associated risks, benefits, and alternatives were explained and she was given the opportunity to ask me questions. She understands and wishes to proceed. Rates pain level 8/10. 0131 Pre-Induction Immediate pre- induction anesthetic assessment performed. Vital signs as noted on graphic. 0154 Quick Note Pt. comfortable , rates pain 0/10. 1033 1039 AN Equip Check Anesthesia eq uipment and materials checked in accordance with local policy. 1039 Start Out of OR Vitals 1039 Epidural to 1039 Dosing for 1058 Anesthesia Ready Good block. Bolster 1107 Stop Out of OR Vitals 1107 An Start Data 1120 Quick Note Present for ext raction of baby. Nitroglycerin given for uterine relaxation. 1150 Quick Note Stable. Bolster 1208 An Stop Present on Labo r and to ensure safe and adequate regional anesthesia for surgery, stable physiology after delivery, and uneventful transfer to recovery area. Elida Bush MD Meds Name Total fentaNYL PF (SUBLIMAZE) 15 mcg/0.3 mL sy ringe 15 mcg 15 mcg bupivacaine MPF (SENSORCAINE MPF) 0.25% injection 0.7 mL fentaNYL-bupivacaine 2 mcg/mL-0.1% in so dium chloride 0.9% (PF) epidural 70.67 mL citric acid-sodium citrate solution (BIC ITRA) solution 30 mL ondansetron (ZOFRAN) 4??mg/2 mL injectio n 4 mg famotidine PF (PEPCID) 20mg/2 mL injecti on 20 mg metoclopramide (REGLAN) 5 mg/mL injectio n 10 mg lidocaine PF-EPINEPHrine (XYLOCAINE MPF- EPIE) 2% - 1:200,000 injection 20 mL phenylephrine in NS (PF) 0.5 mg/5 mL syr lindsey 2,100 mcg nitroglycerin 50 mg in D5W 250 mL infusi on 450 mcg lactated Ringers solution 2,050 mL oxytocin in lactated ringers (PITOCIN) 2 0 unit/1,000 mL infusion Solution 700 mL * Agents Name O2 Inspired O2 N2O Inspired N2O * Blood No blood administrations on file. Lines, Drains, and Airways Type Details Placement Removal Peripheral IV Pre-Hospital Start: No; Orientation: Left; Location: Wrist; Device: Angiocath; Gauge: 18 gauge; Needle Length: 1.25 in length; Insertion Attempts: 1; Patient Tolerance: tolerated well; Removal Indication: no longer indicated; Removal Interventions: pressure dressing, direct pressure, catheter intact 08/20/17 1738 by Saira Dasilva RN 08/22/17 1132 by Lauren Govea RN Epidural Catheter Tip Intact: Yes 08/21/17 0133 by Ely Conde CRNA 08/21/17 1405 by Jennifer Laguna RN Retired Urethral Catheter 08/21/17; 0206; No; Indwelling double lumen catheter; latex; 16 Fr; inserted; 1; 10; 10; 08/21/17; 0730 08/21/17 0206 by Vi Bob RN 08/21/17 0730 by Vanessa Jensen RN Retired Urethral Catheter 08/21/17; 1100; No; Indwelling double lumen catheter; hydrophilic coated; 16 Fr; in place; 1; 10; 10; 08/22/17; 0115 08/21/17 1100 by Vanessa Jensen RN 08/22/17 0115 by Sailaja Vera RN Adult Incision 08/21/17; 1228; surgical incision; abdomen; 08/25/17; 2336 08/21/17 1228 by Sharon Finney RN 08/25/17 2336 by PROVIDER, DISCHARGE PATIENT documented in this [...] Sign Reading Time Taken Comments Blood Pressure 104/53 08/21/2017 11:00 AM CDT Pulse - - Temperature - - Respiratory Rate - - Oxygen Saturation 100% 08/21/2017 11:01 AM CDT Inhaled Oxygen Concentration - - Weight - - Height - - Body Mass Index - - documented in this encounter OR Notes * Anesthesia Postprocedure Evaluation - Elida Bush MD - 08/21/2017 1:37 PM CDT Post Anesthesia Evaluation Vitals: BP 125/81 (BP Location: Right arm, Patient Position (BP): Sitting) Pulse 93 Temp 36.9 ??C (Oral) Resp 20 Ht 5' 11 (1.803 m) Wt 88.5 kg (195 lb) SpO2 100% ? Unknown BMI 27.20 kg/m?? Pain Rating: Pain Rating: Rest: 0 (08/21/17 1600) Nausea/Vomiting: no nausea and no vomiting Post-Op hydration: well hydrated Respiratory function: no respiratory symptoms Airway patency: normal Cardiovascular function: Normal - Regular rate and rhythm Mental status, LOC: 0=alert; keenly responsive Patient participated in evaluation: yes Unanticipated Events: no [facility] Modified Jesus Score: Score: 18 (08/21/17 1330) Elida Bush MD * Anesthesia Handoff - Taj Avina CRNA - 08/21/2017 12:08 PM CDT Post-Anesthetic transfer of care report elements to appropriate post-anesthesia recovery environment completed in accordance with procedure. I completed my handoff to the receiving nurse during which we: 1. Identified the patient 2. Identified the responsible provider 3. Reviewed the pertinent medical history 4. Discussed the surgical course 5. Reviewed intra-op anesthesia management and issues during anesthesia 6. Set expectations for post-procedure period 7. Allowed opportunity for questions and acknowledgement of understanding. Vital Signs: BP: 122/72 (08/21/2017 12:07 PM) Pulse: 114 (08/21/2017 12:07 PM) Heart Rate: 107 bpm (08/21/2017 11:01 AM) Temp: 36.5 ??C (08/21/2017 12:07 PM) Resp: 21 (08/21/2017 12:07 PM) SpO2: 99 % (08/21/2017 12:07 PM) 12:08 PM Taj Avina CRNA * Anesthesia Procedure Notes - Ely Conde CRNA - 08/21/2017 1:53 AM CDT Associated Order(s): CSE BLOCK Anesthesia CSE Block Patient location during procedure: OB Start time: 08/21/2017 1:33 AM Reason for block: primary analgesia Staffing Performed by: ELY CONDE Preanesthetic Checklist Completed: patient identified, site marked, pre-op evaluation, timeout performed, IV checked, risksand benefits discussed and monitors and equipment checked CSE Hand hygiene performed prior to procedure Patient was prepped and draped in usual sterile fashion Time out performed Mask worn Patient position: Sitting Prep: ChloraPrep and site prepped and draped Local Anesthetic: Lidocaine 1% without epinephrine Patient monitoring: Continuous pulse oximetry and Non-invasive blood pressure Approach: Midline Churchill Identification: palpation technique Number of Attempts: 1 Spinal Needle Needle type: Pencil-tip Needle gauge: 27 G Needle length: 5 in CSF visualized Epidural Needle Identification Technique: SHILPA saline Needle Type: Tuohy Needle Gauge: 17 G Needle Length: 10 cm Needle Insertion Depth (cm): 4 Location: Lumbar (1-5) Catheter Catheter Type: Side holeCatheter Size: 19 GSkin Depth (cm): 10 Test dose: Lidocaine 1.5% with epinephrine 1-to-200,000 and Negative Test dose: 3 Events: easy and well toleratedSecured with: Tegaderm Assessment Sensory Level: T10 * Anesthesia Preprocedure Evaluation - Elida Bush MD - 08/21/2017 1:20 AM CDT Relevant Problems No active problems are marked relevant to this note. Anesthesia Evaluation Patient summary reviewed Airway Mallampati: II TM distance: >3 FB Neck ROM: full Dental - normal exam Pulmonary - negative ROS and normal exam breath sounds clear to auscultation (-) sleep apnea Cardiovascular - normal exam (+) valvular problems/murmurs (States hole in heart eventually closed up. Heart murmur), Rhythm: regular Rate: normal Neuro/Psych (+) psychiatric history (Anxiety , no meds during ) GI/Hepatic/Renal (+) GERD, Comments: History of IBS Endo/Other - negative ROS Abdominal Anesthesia History No history of anesthetic complications, no history of difficult intubation, no history of malignanthyperthermia, no history of PONV and no pseudocholinesterase deficiency. Anesthesia Plan ASA 2 - emergent Combined Spinal Epidural N/A induction NPO status > 6 hours Anesthetic plan and risks discussed with Patient. Plan discussed with Nurse Supervisor Component Assembler and Anesthesiologist. Post-op Pain Control Plan to use Epidural for post-op pain control. Plan for postoperative opioid use Smoking Compliance Patient did not smoke on day of surgery assessment indications: arrest of descent para: Gestational age: 40w2d Dilation- Cervical: 10 cm (08/21/17701) Station: 0 (08/21/17701) Temp: 36.8 ??C (08/21/17924) Temp src: Oral (08/21/17924) Pertinent interval changes in the patient's history or review of systems: None Recommendations: Nausea prophylaxis or GI prophylaxis Choice of Anesthesia/Anesthesia Plan: Proceed, Regional and Routine Monitoring Consents Signed: ;Vaginal delivery;Cytotec;Epidural;Circumcision;Blood consent (08/20/17 1730) Postop pain management discussed History reviewed, patient seen and examined prior to induction of anesthesia. Regional anesthesia and general anesthesia if circumstances warrant discussed, including risks, benefits, and alternatives. Questions solicited and answered. Patient understands and wishes to proceed. documented in this encounter Plan of Treatment Upcoming Encounters Date Type Department Care Team (Late st Contact Info) Description 10/08/2024 9:45 AM CDT Office Visit [facility] - [facility] [address] [address] Terrie Manning MD [address] [facility] [address] [place] [address] documented as of this encounter Procedures Procedure Name Priority Date/Time Associated Diagnosis Comments [place] ANESTHESIA BLOCK PB PLACEHOLDER CHARGE Routine 08/21/2017 1:53 AM CDT Procedure Note - Ely Conde CRNA - 08/21/2017 1:53 AM CDTThis note is in progress. Anesthesia CSE Block Patient location during procedure: OB Start time: 08/21/2017 1:33 AM Reason for block: primary analgesia Staffing Performed by: ELY CONDE Preanesthetic Checklist Completed: patient identified, site marked, pre-op evaluation, timeoutperformed, IV checked, risks and benefits discussed and monitors andequipment checked CSE Hand hygiene performed prior to procedure Patient was prepped and draped in usual sterile fashion Time out performed Mask worn Patient position: Sitting Prep: ChloraPrep and site prepped and draped Local Anesthetic: Lidocaine1% without epinephrine Patient monitoring: Continuous pulse oximetry and Non-invasive bloodpressure Approach: Midline Churchill Identification: palpation technique Number of Attempts: 1 Spinal Needle Needle type: Pencil-tip Needle gauge: 27 G Needle length: 5 in CSF visualized Epidural Needle Identification Technique: SHILPA saline Needle Type: Tuohy Needle Gauge: 17 G Needle Length: 10 cm Needle Insertion Depth (cm): 4 Location: Lumbar (1-5) Catheter Catheter Type: Side holeCatheter Size: 19 GSkin Depth (cm): 10 Test dose: Lidocaine 1.5% with epinephrine 1-to-200,000 and Negative Test dose: 3 Events: easy and well toleratedSecured with: Tegaderm Assessment Sensory Level: T10 documented in this encounter Visit Diagnoses Not on filedocumented in this encounter Administered Medications Inactive Administered Medications - up to 3 most recent administrations Medication Order MAR Action Action Date Dose Rate Site bupivacaine PF 0.25 % (SENSORCAINE MPF) injection INTRA-PROCEDURE PRN, Starting on Mon08/21/17 at 0139, Until Mon08/21/17 at 1208, Routine, Anesthesia Intra-op Given 08/21/2017 1:39 AM CDT 0.7 mL famotidine PF (PEPCID) 20 mg/2 mL injection INTRA-PROCEDURE PRN, Starting on Mon08/21/17 at 1042, Until Mon08/21/17 at 1208, Routine, Anesthesia Intra-op Given 08/21/2017 10:42 AM CDT 20 mg fentaNYL PF (SUBLIMAZE) 15 mcg/0.3 mL syringe 15 mcg 15 mcg, See Admin Instructions, INTRA-PROCEDURE ONCE, 1 dose, Starting on Mon08/21/17 at 0119, Until Mon08/21/17 at 0139, Routine, Intra-Procedure Given 08/21/2017 1:39 AM CDT 15 mcg fentaNYL-bupivacaine 2 mcg/mL-0.1% in sodium chloride 0.9% (PF) epidural 250 mL, Epidural, at 8 mL/hr, CONTINUOUS PRN, Starting on Mon08/21/17 at 0119, Until Mon08/21/17 at 1519, Pain, labor analgesia, Intra-Procedure New Bag 08/21/2017 1:50 AM CDT 8 mL/hr 8 mL/hr lactated Ringers solution IV, at 125 mL/hr, CONTINUOUS, Starting on Mon08/20/17 at 1745, Until Mon08/21/17 at 1520, Routine New Bag 08/21/2017 11:26 AM CDT New Bag 08/21/2017 9:06 AM CDT 125 mL/hr Bag Switched 08/21/2017 1:51 AM CDT 125 mL/hr lidocaine PF-EPINEPHrine (XYLOCAINE MPF-EPI) 2 %-1:200,000 injection INTRA-PROCEDURE PRN, Starting on Mon08/21/17 at 1042, Until Mon08/21/17 at 1208, Other (See Comment), Routine, Anesthesia Intra-op Given 08/21/2017 10:58 AM CDT 2 mL Given 08/21/2017 10:56 AM CDT 3 mL Given 08/21/2017 10:51 AM CDT 5 mL metoclopramide HCl (REGLAN) injection INTRA-PROCEDURE PRN, Starting on Mon08/21/17 at 1042, Until Mon08/21/17 at 1208, Routine, Anesthesia Intra-op Given 08/21/2017 10:42 AM CDT 10 mg nitroglycerin 50 mg in D5W 250 mL infusion INTRA-PROCEDURE PRN, Starting on Mon08/21/17 at 1125, Until Mon08/21/17 at 1208, Anesthesia Intra-op Given 08/21/2017 11:25 AM CDT 150 mcg Given 08/21/2017 11:23 AM CDT 300 mcg ondansetron (ZOFRAN) 4 mg/2 mL injection INTRA-PROCEDURE PRN, Starting on Mon08/21/17 at 1042, Until Mon08/21/17 at 1208, Nausea/Emesis, Routine, Anesthesia Intra-op Given 08/21/2017 10:42 AM CDT 4 mg oxytocin in lactated ringers (PITOCIN) 20 unit/1,000 mL infusion Solution IV, at 125 mL/hr, CONTINUOUS PRN, 2 doses, Starting on Mon08/21/17 at 1033, Until Mon08/21/17 at 2049, Other (See Comment), post op, (OB ANESTHESIA ORDER) Bag Switched 08/21/2017 12:50 PM CDT 125 mL/hr 125 mL/hr New Bag 08/21/2017 11:28 AM CDT phenylephrine in NS 0.5 mg/5 mL (100 mcg/mL) injection INTRA-PROCEDURE PRN, Starting on Mon08/21/17 at 1056, Until Mon08/21/17 at 1208, Routine, Anesthesia Intra-op Given 08/21/2017 11:57 AM CDT 200 mcg Given 08/21/2017 11:54 AM CDT 200 mcg Given 08/21/2017 11:51 AM CDT 100 mcg sodium citrate-citric acid (BICITRA) oral solution INTRA-PROCEDURE PRN, Starting on Mon08/21/17 at 1042, Until Mon08/21/17 at 1208, Routine, Anesthesia Intra-op Given 08/21/2017 10:42 AM CDT 30 mL documented in this encounter Care Teams Barn Manager Relationship Specialty Start Date End Date Terrie Manning MD PCP - General Obstetrics and Gynecology 05/27/13 documented as of this encounter
--- OUTSIDE RECORDS SUMMARY | 2024-05-27 15:11 | XMS_ITS | Encounter Summary ---
Author Organization [facility] Address [address] [place] [address] Care Team Providers Care Marine Farmer Name Role Phone Terrie Manning MD Primary Care Provider +1- [phone] Reason for Visit * Reason Onset Date Comments Medication Refill 04/03/2019 Encounter Details Date Type Department Care Team (Late st Contact Info) Description 04/03/2019 Refill [facility] RELIGIOUS HEALER - Medical [address] [address] Terrie Manning MD [address] [place] [address] Anxiety state (Primary Dx) Social History Tobacco Use Types [...] Telephone Encounter - Terrie Manning MD - 04/03/2019 4:42 PM CDT x documented in this encounter Plan of Treatment Upcoming Encounters Date Type Department Care Team (Late st Contact Info) Description 10/08/2024 9:45 AM CDT Office Visit [facility] RELIGIOUS [facility]AL[facility] - [facility] [address] [address] [address] Terrie Manning MD [facility] [address] [place] [address] documented as of this encounter Visit Diagnoses Diagnosis Anxiety state- Primary Anxiety state, unspecified documented in this encounter Care Teams Marine Farmer Relationship Specialty Start Date End Date Terrie Manning MD PCP - General Obstetrics and Gynecology 05/27/13 documented as of this encounter
--- OUTSIDE RECORDS SUMMARY | 2024-05-27 15:11 | XMS_ITS | Encounter Summary ---
Author Organization [facility] Address [address] [place] [address] Care Team Providers Care Gang Tailer Name Role Phone Terrie Manning MD Primary Care Provider [phone] Reason for Visit * Auth/Cert Specialty Diagnoses / Procedures Referred By Contac t Referred To Contact Obstetrics Diagnoses eil [facility] Labor [address] [place] [address] Referral ID Status Reason Start Date Expiration Date Visits Re quested Visits Authorized [id number] 1 Encounter Details Date Type Department Care Team (Late st Contact Info) Description 08/21/2017 10:45 AM CDT - 08/21/2017 12:15 PM CDT Surgery [facility] Labor & [address] [place] [address] Terrie Manning MD [address] [facility] [address] [place] [address] SECTION Surgery Details Date/Time Status Location OR Service Patient Class Case Cl ass Case Type Trauma Case? 08/21/2017 10:45 AM Posted [facility] C-S D Obstetrics Inpatient Urgent No Panel 1 Procedure LRB Anes Op Region Wound Class Comments SECTION N/A Epidural Abdomen Clean Contami nated-II Surgeon Surgeon Role Service Panel Terrie Manning MD Primary Obstetrics 1 documented in this [...] Sign Reading Time Taken Comments Blood Pressure 101/56 08/21/2017 12:15 PM CDT Pulse 100 08/21/2017 12:15 PM CDT Temperature 36.5 ??C (97.7 ??F) 08/21/2017 12:07 PM C DT Respiratory Rate 15 08/21/2017 12:15 PM CDT Oxygen Saturation 99% 08/21/2017 12:15 PM CDT Inhaled Oxygen Concentration - - Weight 88.5 kg (195 lb) 08/20/2017 5:32 PM CDT Height 180.3 cm (5' 11 ) 08/20/2017 5:32 PM CDT Body Mass Index 27.2 08/20/2017 5:32 PM CDT documented in this encounter Discharge Summaries * Terrie Manning MD - 08/25/2017 8:22 AM CDT Physician Discharge Summary - Delivery Patient: Angela Alarcon / 31 y.o. / female : 1985 Admit date: 08/20/2017 Discharge date: Attending Physician: Terrie Manning MD [place] Data: Information for the patient's : Mary Alarcon [[id number]] 1 Minute Score: 5 (08/21/17 1147) 5 Minute Score: 8 (08/21/17 1147) Information for the patient's : Mary Alarcon [[id number]] Weight: 4139 g (9 lb 2 oz) (08/21/17 1147) Discharge Diagnosis 1. labor Hospital Procedures 1. none. Pertinent History & Physical See H&P. Hospital Course Uncomplicated. Discharge Labs HEMOGLOBIN Date Value Ref Range Status 08/20/2017 11.2 (L) 11.8 - 14.8 g/dL Final PLATELETS Date Value Ref Range Status 08/20/2017 257 140 - 350 K/uL Final Discharge Condition: stable. Disposition She is discharged to home. See discharge instructions. Appropriate instructions were reviewed with the patient including no lifting >10 lbs & nothing per vagina x 6 wks. She'll followup in theoffice in 2 and 6 wks. Discharge Medications Medication List START taking these medications hydrOXYzine HCl 25 mg tablet Commonly known as: ATARAX Take 1 Tablet (25 mg) by mouth every 6 hours as needed (for anxiety). Signed by: Terrie Manning MD Quantity: 30 Tablet Refills: 2 ibuprofen 600 mg tablet Commonly known as: MOTRIN Take 1 Tablet (600 mg) by mouth every 6 hours. Signed by: Terrie Manning MD Quantity: 60 Tablet Refills: 2 CONTINUE taking these medications HYDROcodone-acetaminophen 5-325 mg tablet Commonly known as: NORCO Take 1 Tablet by mouth every 4 hours as needed for Pain, Moderate. Max Daily Amount: 6 Tablets Signed by: Terrie Manning MD Quantity: 30 Tablet Refills: 0 Vit 30-Tohz-RU-DSS 90-1-50 mg Tablet Commonly known as: ADVANCED Take 1 Tablet by mouth daily. Refills: 0 STOP taking these medications progesterone micronized 100 mg Capsule Commonly known as: PROMETRIUM Where to Get Your Medications Information about where to get these medications is not yet available Ask your nurse or doctor about these medications ?? HYDROcodone-acetaminophen 5-325 mg tablet ?? hydrOXYzine HCl 25 mg tablet ?? ibuprofen 600 mg tablet KLeMoineMD documented in this encounter Discharge Instructions * Discharge Instructions* Jasmyne Bello RN - 08/25/2017 10:24 AM CDT PRESCRIPTIONS Prescriptions given? Yes ACTIVITY/EXERCISE Recovery is a progressive process. It may take 6 to 8 weeks to return to pre- activity levels. Take time to rest each day. Limit visitors for the first few weeks. If you smoke you are advised to quit. Ask your health care provider for advice if you need assistance to stop smoking. Avoid second-hand smoke exposure and do not let people smoke in your home. BREAST CARE Wear a well fitting support [...] with each feeding ?? For advice call: IF BOTTLE FEEDING ?? Avoid breast stimulation, such as showers and pumping breasts ?? If breasts are painful and engorged, [...] they will slowly disappear. Use of Tucks, sitz baths, or local medication will give relief. Avoid [...] INTERCOURSE You may resume intercourse after approximately four weeks or when the perineal area is not tender and vaginal bleeding has subsided. control measures should be used when you resume sexual intercourse. You may shower daily. After every shower pat the incision dry. For ease of movement, hold a pillow against the incision when you get up from a lying or sitting position. SIGNS/SYMPTOMS TO REPORT Call your doctor if you have any of the following: Fever higher than 100 degrees or chills Fainting Frequency or burning with urination Heavy (more than 1 pad per hour), prolonged or foul smelling vaginal bleeding or discharge Swelling, redness, tenderness in breasts Swelling, redness, tenderness in legs Increasing drainage, redness, or pain from incision Severe mood swings Thoughts of harming yourself or your baby documented in this encounter Medications at Time of Discharge Medication Sig Dispensed Refills Start Date End Date Vit 48-Namo-VV-DSS (ADVANCED ) 90-1-50 mg Tablet Take 1 Tablet by mouth daily. 03/06/2019 documented as of this encounter Progress Notes * Jasmyne Bello RN - 08/25/2017 10:22 AM CDT Pt. Will be leaving via w/c with infant. Home per private car. * Charles Acuña MD - 08/25/2017 6:54 AM CDT OB Progress Note Subjective: Pain well controlled with oral medications. Tolerating regular diet and ambulation. Voiding without complaints. +flatus. Minimal lochia. No complaints this morning. Objective: Vitals: 08/23/17 0700 08/23/17 1923 08/24/17 0745 08/24/17 1935 BP: 119/78 138/83 125/83 136/86 BP Location: Right arm Right arm Right arm Patient Position (BP): Sitting Sitting Sitting Pulse: 91 85 Resp: Temp: 97.6 ??F (36.4 ??C) 98 ??F (36.7 ??C) 97.5 ??F (36.4 ??C) 98 ??F (36.7 ??C) TempSrc: Oral Oral Oral Oral SpO2: Weight: Height: HEENT: NC, AT Abd: Soft, firm fundus below umbilicus, incision clean/dry/intact Ext: No calf tenderness Active Problems: Normal labor and delivery Assessment/Plan: POD# 4 s/p LTCS 1. Postop - Afebrile, VSS - Pain well controlled with PO meds - Continue routine post-op care Anticipate D/C home today per attending Charles Acuña MD, PGY-1 Dept. Of SENIOR SCHEDULER Pager: [phone] * Yu Leal RN - 08/25/2017 6:31 AM CDT Pt up ad radha, anxious/crying when was crying. Reported to me she had panic attack around 0100, helped her get through it. Had taken atarax @ 2240, did relax her and helped her sleep atthat time. Pt pain controlled well with po meds. Voiding painlessly. * Terrie Manning MD - 08/24/2017 8:38 AM CDT Note Subjective: Day 3: Delivery The patient feels well. Pain is well controlled with current medications. The patient is ambulatingwell. The patient is tolerating a normal diet. Objective: Patient Vitals for the past 8 hrs: BP Temp Temp src Pulse Resp 08/24/17 0745 125/83 97.5 ??F (36.4 ??C) Oral 85 18 General: alert, in no distress Uterine Fundus: normal size, well involuted, firm, non-tender Incision: healing well, no significant drainage, no dehiscence, no significant erythema DVT Evaluation: No evidence of DVT seen on physical exam. Assessment: Status post section. Doing well postoperatively.. Plan: Continue current care. Home in am. KLeMoineMD * oCle Cox DO - 08/24/2017 7:36 AM CDT OB Progress Note Subjective: Pain well controlled with oral medications. Tolerating regular diet and ambulation. Voiding without complaints. +flatus. Minimal lochia. No complaints this morning. Objective: Vitals: 08/22/17 1649 08/22/17 2117 08/23/17 0700 08/23/17 1923 BP: 111/74 112/64 119/78 138/83 BP Location: Right arm Right arm Right arm Patient Position (BP): Sitting Sitting Pulse: 90 100 91 Resp: 18 Temp: 97.7 ??F (36.5 ??C) 97.4 ??F (36.3 ??C) 97.6 ??F (36.4 ??C) 98 ??F (36.7 ??C) TempSrc: Oral Oral Oral Oral SpO2: 100% Weight: Height: HEENT: NC, AT Abd: Soft, firm fundus below umbilicus, incision clean/dry/intact Ext: No calf tenderness Active Problems: Normal labor and delivery Assessment/Plan: POD# 3 s/p LTCS with uterine T incision 1. Postop - Afebrile, VSS - Pain well controlled with PO meds - Increase ambulation - Continue routine post-op care Ro Cox DO PGY1 Dept SENIOR SCHEDULER Pager [phone] * Larissa Barksdale MD - 08/23/2017 1:07 PM CDT Note Subjective: Day 2: Delivery The patient feels well. Pain is well controlled with current medications. The patient is ambulatingwell. The patient is tolerating a normal diet. Objective: Patient Vitals for the past 8 hrs: BP Temp Temp src Pulse Resp 08/23/17 0700 119/78 97.6 ??F (36.4 ??C) Oral 91 18 General: alert, in no distress Uterine Fundus: normal size, well involuted, firm, non-tender Incision: healing well, no significant drainage, no dehiscence, no significant erythema DVT Evaluation: No evidence of DVT seen on physical exam. Assessment: Status post section. Doing well postoperatively.. Plan: Continue current care * Cole Cox DO - 08/23/2017 6:33 AM CDT OB Progress Note Subjective: Pain well controlled. Tolerating regular diet and ambulation. Voiding without complaints. + flatus. Minimal lochia. Denies chest pain, shortness of breath, fevers, chills, or calf pain. No complaints this morning. Objective: Vitals: 08/22/17 0730 08/22/17 1230 08/22/17 1649 08/22/17 2117 BP: 108/63 126/83 111/74 112/64 BP Location: Right arm Right arm Patient Position (BP): Sitting Pulse: (!) 105 (!) 128 90 100 Resp: Temp: 98 ??F (36.7 ??C) 98.9 ??F (37.2 ??C) 97.7 ??F (36.5 ??C) 97.4 ??F (36.3 ??C) TempSrc: Oral Oral Oral Oral SpO2: 100% Weight: Height: HEENT: NC, AT Abd: Soft, firm fundus below umbilicus, incision clean/dry/intact Ext: No calf tenderness Active Problems: Normal labor and delivery Assessment/Plan: POD# 2 s/p pfannenstiel incision with T uterine incision 1. Postop - Afebrile, VSS - Begin oral pain medications when epidural is discontinued. - Increase ambulation. - Continue routine post-op care. Ro Cox DO PGY1 Dept SENIOR SCHEDULER Pager [phone] * Terrie Manning MD - 08/22/2017 9:12 AM CDT Note Subjective: Day 1: Delivery The patient feels well. Pain is well controlled with current medications. The patient is ambulatingwell. The patient is tolerating a normal diet. Objective: Patient Vitals for the past 8 hrs: BP Temp Temp src Pulse Resp SpO2 08/22/17 0730 108/63 98 ??F (36.7 ??C) Oral (!) 105 18 - 08/22/17 0515 105/62 98 ??F (36.7 ??C) Oral 99 16 100 % General: alert, in no distress Uterine Fundus: normal size, well involuted, firm, non-tender Incision: healing well, no significant drainage, no dehiscence, no significant erythema DVT Evaluation: No evidence of DVT seen on physical exam. Assessment: Status post section. Doing well postoperatively.. Plan: Continue current care KLeMoineMD * Cole Cox, - 08/22/2017 6:41 AM CDT OB Progress Note Subjective: Pain well controlled. Tolerating diet. + flatus. Minimal lochia. Denies chest pain, shortness of breath, fevers, chills, or calf pain. No complaints. Objective: Vitals: 08/21/17 1900 08/21/17 1920 08/22/17 0110 08/22/17 0515 BP: 111/71 111/69 105/62 BP Location: Right arm Right arm Patient Position (BP): Sitting Supine Pulse: 97 99 Resp: 16 Temp: 98.2 ??F (36.8 ??C) 98.1 ??F (36.7 ??C) 98 ??F (36.7 ??C) TempSrc: Oral Oral Oral SpO2: 99% 99% 100% Weight: Height: HEENT: NC, AT Heart : acyanotic Lungs: non labored breathing Abd: Soft, firm fundus below umbilicus, bandage clean/dry/intact Ext: No calf tenderness Intake/Output Summary (Last 24 hours) at 08/22/17 0641 Last data filed at 08/21/17 2050 Gross per 24 hour Intake 6048.9 ml Output 3605 ml Net 2443.9 ml UOP in last 8 hours: 2800 Active Problems: Normal labor and delivery Assessment/Plan: POD# 1 s/p PLTCS with uterine T incision 1. Postop - Afebrile, VSS - UOP adequate: saline lock IV, discontinue Amaro - Ambulate - Tolerating regular diet - Continue routine post-op care Ro Cox DO PGY1 Dept SENIOR SCHEDULER Pager [phone] * Sailaja Vera GN - 08/22/2017 3:30 AM CDT Patient has been assisted up to the bathroom twice, is stable, and able to ambulate on her own. * Jennifer Laguna RN - 08/21/2017 3:23 PM CDT Urine during 2 hour recovery had been blood-tinged then was becoming yellow with mucous thread and small clot. Dr.T. Armstrong notified that urine from Amaro was red-tinged upon transfer from stretcher to bed. * Terrie Manning MD - 08/21/2017 12:05 PM CDT Th patient has been complete and pushing for over two hours. The fetus is transverse and was unableto be manually rotated and did not change in maternal hands/knees. Need for c/s due to transverse arrest d/w pt. R/o bleeding, infection and damage to surrounding structures d/w pt. Questions answered. Prophylactic antibiotics will be given. KLeMoineMD * Indy Diop RN - 08/21/2017 11:04 AM CDT Anesthesia at bedside. Epidural dosed. Amaro inserted. SCD's applied. Hair clipped. 2g Ancef infused. 500 mg Zithromax infusing. Timeout performed by Alysha Stoddard PGY-3, Alysha Diop RN, Marline Jensen RN, Jonathon ZAPIEN, and Dr. Manning. EFM and TOCO removed. Pt transferred to OR D via stretcher. * Vanessa Jensen GN - 08/21/2017 10:20 AM CDT RN at bedside. position reassessed. Baby still transverse. RN spoke with Dr. Manning. Decision made to proceed with csection. * Indy Diop RN - 08/21/2017 10:[address] Manning at bedside assessing station and position. Baby in transverse vertex position. Orders received to position patient in hands and knees and reassess in 20 minutes. * Ely Castaneda MD - 08/21/2017 9:59 AM CDT R4 Safety Rounds round note 9:59 AM 15 minutes of FHT and plan of care reviewed with in-house attending, OB anesthesia, MFM and L&Dcharge nurse. Category 1 Action: continue current plan Ely Castaneda MD * Vi Bob RN - 08/21/2017 7:[address] Manning updated on pts SVE 10/100/0. Orders received to labor down for a half hour and then begin pushing. * Vi Bob RN - 08/21/2017 6:[address] Manning updated on pts SVE, contraction pattern and pitocin rate. No new orders received. * Vi Bob RN - 08/21/2017 2:[address] Manning updated on pts SVE, contraction pattern, FHR tracing and pitocin rate. Order received to place IUPC if needed. Will update again at 0600. * Vi Bob RN - 08/21/2017 1:15 AM CDT Pt requesting epidural. Dr. Yousif called. Epidural approved. * Oriana Fink RN - 08/21/2017 12:29 AM CDT NICU aware of meconium * Fernando Malloy MD - 08/21/2017 12:15 AM CDT R4 Safety Rounds round note 12:15 AM 15 minutes of FHT reviewed with in-house attending, and L&D charge nurse. Category I Action: continue current plan of care Fernando Malloy MD * Frederick Jovel DO - 08/21/2017 12:07 AM CDT AROM Note Subjective: In patient's room for AROM per attending. Patient comfortable with contractions. GBS negative. No complaints. Objective: BP 128/74 Temp 98.1 ??F (36.7 ??C) (Oral) Resp 16 Ht 5' 11 (1.803 m) Wt 88.5 kg (195 lb) ? No BMI 27.20 kg/m?? SVE: 3/70/-3, head well applied, no parts or cord FHR: 140, mod variability, +accels, no decels Long Point: q2min Active Problems: Normal labor and delivery Assessment/Plan: 31 y.o. @ 40w2d 1. EIL - AROM with amniohook. Thin meconium stained fluid returned. - Pitocin, 9 mu/min 2. FHR tracing Category 1 3. Anticipate Frederick Jovel DO * Vi Bob RN - 08/21/2017 12:[address] Jovel at bedside to verify if AROM was successful. SVE /-2. AROM performed. Large amount of meconium stained fluid returned. NICU notified. * Sarah Novoa MD - 08/20/2017 11:00 PM CDT AROM Note Subjective: In patient's room for AROM per attending. GBS negative. No complaints. Objective: BP 128/74 Temp 98.1 ??F (36.7 ??C) (Oral) Resp 18 Ht 5' 11 (1.803 m) Wt 88.5 kg (195 lb) ? No BMI 27.20 kg/m?? SVE: 2.5cm, 60-70 effacement, -2 head well applied, no parts or cord FHR: 140, mod variability, +accels, no decels Long Point: occasional Active Problems: Normal labor and delivery Assessment/Plan: 31 y.o. @ 40w1d 1. Induction of labor - AROM with amniohook. Clear fluid returned. - Pitocin running at 5 2. FHR tracing Category 1 3. Anticipate Sarah Novoa MD * Vi Bob RN - 08/20/2017 10:55 PM CDT Giorgio Novoa MD at bedside for AROM. * Vi Bob RN - 08/20/2017 9:55 PM CDT Pt up to ambulate halls. Will adjust EFM and AROM when able. * Vi Bob RN - 08/20/2017 9:[address] Manning called in for update. Updated on pts SVE, contraction pattern, FHR tracing and pitocin rate. Orders received to AROM within the hour. Will update Dr. Manning after pt is comfortable with epidural. * Fernando Malloy MD - 08/20/2017 8:37 PM CDT R4 Safety Rounds round note 8:37 PM 15 minutes of FHT and plan of care reviewed with in-house attending, OB anesthesia, and L&D charge nurse. Category II, tachy Action: intrauterine resuscitation, reassess prn Fernando Malloy MD * Vi Bob RN - 08/20/2017 7:33 PM CDT Pt up to ambulate halls. Will adjust EFM when able. * Saira Dasilva RN - 08/20/2017 5:[address] Manning paged and page returned. Admission info given. Orders received. documented in this encounter H&P Notes * Frederick Jovel DO - 08/20/2017 5:58 PM CDT OB History & Physical CC: Elective induction of labor HPI: Angela A Sczurko is a 31 y.o. @ 40w1d who presents for induction of labor. She reportsgood movement, denies leakage of fluid, contractions, or vaginal bleeding. Her is uncomplicated. IVF . Her primary OB is Terrie Manning MD. ROS: As above. Denies nausea, vomiting, chest pain, shortness of breath, headache, or vision symptoms. OB Hx: OB History Para Term AB Living 2 0 0 0 1 0 SAB TAB Ectopic Multiple Live Births 1 0 0 0 0 # Outcome Date GA Lbr Ryan/2nd Weight Sex Delivery Anes PTL Lv 2 Current 1 SAB 08/2016 SAB DYNAMICIST Hx: Hx of abnormal pap smear in 20s hx of leep procedure, Hx of D&C PMHx: Past Medical History: Diagnosis Date ??? Abdominal pain ??? Anxiety no meds during ??? 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 Diarrhea 06/03/13 ??? GERD (gastroesophageal reflux disease) ??? Hx of abnormal cervical Pap smear ??? IBS (irritable bowel syndrome) ??? Unsp cond assoc w female genital organs and menstrual cycle IVF PSHx: Past Surgical History: Procedure Laterality Date ??? HX DILATION AND CURETTAGE ??? HX LEEP PROCEDURE 2015 ??? HX WISDOM TEETH EXTRACTION ??? MD COLONOSCOPY FLX DX W/COLLJ SPEC WHEN PFRMD 06/06/2013 COLONOSCOPY performed by Xavi Aquino MD at [facility] ??? MD ESOPHAGOGASTRODUODENOSCOPY TRANSORAL DIAGNOSTIC 06/06/2013 ESOPHAGOGASTRODUODENOSCOPY performed by Xavi Aquino MD at [facility] ??? MD HYSTEROSCOPY,W/ENDO BX N/A 08/11/2016 HYSTEROSCOPY WITH DILATATION AND CURETTAGE SUCTION performed by Dustin Bill MD at [facility] ??? MD ORAL SURGERY FHx: Negative for genetic tendencies or bleeding disorders SHx: denies tobacco, alcohol, or illicit drug use Medications: No current facility-administered medications on file prior to encounter. Current Outpatient Prescriptions on File Prior to Encounter Medication Sig Dispense Refill ??? Vit 67-Udln-UT-DSS (ADVANCED ) 90-1-50 mg Tablet Take 1 Tablet by mouth daily. ??? HYDROcodone-acetaminophen (NORCO) 5-325 mg tablet Take 1 Tablet by mouth every 4 hours as needed for Pain, Moderate. Max Daily Amount: 6 Tablets 15 Tablet 0 ??? progesterone micronized (PROMETRIUM) 100 mg Capsule Take by mouth daily. No Known Allergies Physical Exam: BP (!) 127/94 Temp 98.4 ??F (36.9 ??C) (Oral) Resp 20 Ht 5' 11 (1.803 m) Wt 88.5 kg (195 lb) ? No BMI 27.20 kg/m?? General: well-developed, well-nourished female in NAD HEENT: NCAT, moist mucus membranes Heart: acyanotic Lungs: non-labored breathing Abdomen: gravid, NT Extremities: no clubbing, cyanosis, or edema. No calf tenderness. SVE: 2cm, 70, -2 FHR: 140, mod variability, +accels, no decels Long Point: irregular q 8min BSUS: vertex Assessment/Plan: 31 y.o. @ 40w1d admitted for EIL, uncomplicated 1. Elective induction of labor - SVE 2cm, 70, -2 on admission - BSUS: vertex - Pitocin per protocol - GBS neg 2. status - NST reactive category 1 3. labs: - Blood type O+ - RI/NR/-/- 4. Anticipate RN discussed with MD Sarah Grullon MD Resident Physician, Family Medicine [facility], [place], [place] Pager [phone] FHT Addendum: FHR: 140, moderate variability, accels no decels Long Point: q 4-5 min Category 1 Frederick Jovel DO Service Member Resident, PGY-1 Pager [phone] documented in this encounter Consult Notes * Mildred Ralph RN - 08/23/2017 9:47 AM CDTAssociated Order(s): IP CONSULT TO visit is follow up to yesterday. S: 2 days post delivery. Male . . O: see previous notes for further details. A: infant not in room at this time. Circumcision planned prior to discharge in 2 days. Parents aware of how this procedure may impact feedings for several hours post delivery. Wt loss is 5.1%. Mom c/o some tenderness maddi with latch. Encouraged to call when she is ready to feed again. number on board for easy access. Mom has quality pump if needed. 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 Briefly discussed. Aware of when to expect full milk and management of. Aware of outpt support and contact information. P: plan is for mom to cont to feed as above. Verbalizes understanding information. Denies further needs at this time. support and contact information given for assistance inpatient as well as outpatient. Business card and maternal handbook at bedside for easy access. Follow up planned as needed or requested. visit: 20 min Maternal order completed. Will cont Assist family under 's order. Mildred Ralph, MSN, BSN, RN, IBCLC * Ladan Silver, ATTILA - 08/22/2017 6:12 PM CDT This is mother's first baby and she wishes to breastfeed. Mother concerned that has been sleepy. Mother reports that fed well with the last feeding. Infant wrapped and being held by family. Discussed what to expect from infant in the first days of life. Discuss how long to feed and burping. Encouraged mother to place infant skin to skin to wake. Encouraged mother to rest and preparefor when cluster feeds. Encouraged mother to watch for feeding cues and feed as often as demands. Will follow up for a latch check. Time: 10 minutes documented in this encounter OR Notes * Operative Report - Terrie Manning MD - 08/29/2017 10:19 PM CDT [place], [place] [address] Operative Report CSN: [id number] DATE OF SERVICE: 08/21/2017 SURGEON Terrie Manning MD PREOPERATIVE DIAGNOSES 1. Term intrauterine . 2. Transverse arrest. POSTOPERATIVE DIAGNOSES 1. Term intrauterine , 2. Transverse arrest. OPERATION NAME Low transverse section with T extension and breech delivery. ANESTHESIA Epidural. DISTRICT COMMERCIAL SUPERINTENDENT 1. Sumaya Stoddard DO, PGY 1 2. Ernestine Grijalva DO COMPLICATIONS None. ESTIMATED BLOOD LOSS 800 mL. FLUIDS Per anesthesia record. FINDINGS Male , LOT presentation. Apgars 5 and 8. weight 9 pounds 2 ounces. Normal-appearing uterus, tubes, and ovaries. DESCRIPTION OF PROCEDURE The patient was taken to the operating room where anesthesia was found be adequate. She was preppedand draped in normal sterile fashion in dorsal supine position with a leftward tilt. A Pfannenstielskin incision was made with a scalpel and carried through to the underlying layer of fascia. The fascia was incised in the midline and this incision was extended laterally using Horner scissors. The superior aspect of the fascial incision was grasped with Radha clamps, elevated, and underlying rectus muscle dissected off using the Horner scissors. Attention was then turned to the inferior aspect of the fascial incision, which was also grasped with Radha clamps, elevated, and underlying rectus muscles dissected off using Horner scissors. The rectus muscles were in midline. The peritoneumwas identified, grasped with Pean clamps, entered sharply with the Metzenbaum scissors. This peritoneal incision was extended superiorly and inferiorly with good visualization of the bladder. The bladder blade was inserted and the vesicouterine peritoneum was identified, grasped with a Pean clamp, and entered sharply with Metzenbaum scissors. This incision was extended laterally and the bladder flap was created digitally. The bladder blade was then reinserted and the lower uterine segment was incised with a scalpel in a transverse fashion. The incision was extended laterally. The 's head was in LOT presentation deep into the pelvis. Inserted my hand easily around the 's head, but the infant's head was unable to be flexed due to the transverse presentation and the head being wedged into the maternal pelvis. Attempts to elevate the head repeatedly were unsuccessful. Event ually, the decision was made to perform a T-incision on the uterus. The bandage scissors were used to make a T-incision on the uterus and the feet were grasped. The infant was delivered from a breechpresentation, and once the body was elevated, the head was able to be flexed and delivered. The nose and mouth were bulb suctioned. The cord was clamped and cut and was handed off to the NICU attendants. The total extraction time was approximately 7.5 minutes. The placenta was manually extracted. The uterus was exteriorized and cleared of all clots and debris. The T incision of the uterus was repaired with multiple layers of 0 Biosyn in a running locked fashion. The transverse incision was then also repaired with 0 Biosyn in a running locked fashion. Excellent hemostasis was noted. Theuterus was returned to the patient's abdomen. The gutters were cleared of all clots and debris. was then scrubbed in and assisted in closure of the uterus right after delivery of the fetus and then scrubbed out. The peritoneum was closed with 3-0 Polysorb in a running fashion. The rectus muscles were inspected and found to be hemostatic and reapproximated using 0 Biosyn. The fascia was closed with 0 Polysorb in a running fashion. The subcutaneous tissues were irrigated with warm normal saline and made hemostatic with Bovie cautery. The skin was closed with 4-0 Biosyn in subcuticularfashion. Sponge, lap, instrument, and needle counts were correct x2 at the end the procedure. She was taken to the recovery room in stable condition. She did receive preoperative antibiotics prior tothe procedure and had on pneumatic devices for DVT prophylaxis throughout the procedure. KL:MEDLoco DID: [id number] Dictated by: Terrie Manning MD * Anesthesia Post Evaluation - Chato Orourke DO - 08/22/2017 7:16 AM CDT Post - Operative Pain Service Note Post op day #1 status post duramorph. VSS: Pulse: 99 (08/22/17 05) BP: 105/62 (08/22/17514) Resp: 16 (08/22/17514) Temp: 36.7 ??C (08/22/17514) Pain Rating: Rest: 1 (08/22/17514) Description: Quality: soreness (08/22/17514) Sedation: no Pruritis: no Nausea/vomitting: no Advance to oral pain medication 20 hours post delivery. Delivery Date : 08/21/17 (08/21/171151) Delivery Time : 1127 (08/21/17 115) Chato Orourke DO * Anesthesia Post Evaluation - Chato Orourke DO - 08/22/2017 7:16 AM CDT OB Anesthesia Post-Operative Assesment 08/22/2017 7:16 AM Angela Alarcon, status post regional anesthesia for section. Patient seen and evaluated: Respiratory Function Resp: 16 (08/22/17514) SpO2: 100 % (08/22/17514) Able to breathe and cough freely Able to maintain O2 saturation greater than 92% on room air Cardiovascular Function Heart Rate: 96 bpm (08/21/170) BP: 105/62 (08/22/17514) BP within 20% of preanesthetic level Mental Status, Neuro Fully awake Able to move 4 extremities voluntarily. No focal sensory deficits or weakness. Temperature Temp: 36.7 ??C (08/22/17514) Pain Pain Rating: Rest: 1 (08/22/17514) Presence of Pain: complains of pain/discomfort (08/22/17514) Postoperative Hydration Intake/Output Summary (Last 24 hours) at 08/22/17 0716 Last data filed at 08/22/17 05 Gross per 24 hour Intake 7807.4 ml Output 6405 ml Net 1402.4 ml Nausea and Vomiting Signs/Symptoms: intermittent nausea (08/21/17 193) Able to drink fluids, no nausea, no vomiting Narrative No apparent Anesthesia related complications Chato Orourke DO 08/22/2017 7:16 AM * Hilda-OP - Sharon Finney RN - 08/21/2017 12:20 PM CDT 1205 Pt brought to the OR and then transferred to the OR bed. EFM placed and FHR is between 120 [id number]. The pt's abdomen was cleaned with Dura-prep. * Brief Op Note - Sumaya Stoddard DO - 08/21/2017 12:08 PM CDT Brief Postoperative Note Angela Whyte Ivana [id number] Pre-operative Diagnosis: 1. Arrest of descent 2. Elective Induction of Labor Post-Op Diagnosis: 1. Arrest of descent 2. Elective Induction of labor Procedure(s) and Anesthesia Type: * T-Incision SECTION - Epidural Surgeon(s) and Role: * Terrie Manning MD - Primary Additional CPT Codes: *No additional CPT codes listed in log* Procedure Start: 1116 Procedure End: Estimated Blood Loss: 800cc Sumaya Stoddard DO documented in this encounter Miscellaneous Notes * Care Plan - Yu Leal RN - 08/24/2017 11:32 PM CDT Pt called, saying she felt anxious and couldn't sleep. Resident phoned @ 2200; Dr. Jovel ordered Atarax 25mg Q6hr prn. * Care Plan - Delicia Hyde - 08/24/2017 10:01 PM CDT Problem: Discharge Planning Goal: Identify discharge needs upon admission and through discharge Pt screened for WIC program. Pt does not appear to qualify. * Note - Milderd Ralph RN - 08/24/2017 12:08 PM CDT visit is per pathway and order. Tomorrow, discharge is planned for patient and . S: Discharge for mom and - 3 days post delivery. Circumcision today. Parents aware of how this procedure may impact feedings x next few hours. O: has adequate feedings that are appropriate in frequency and duration. also has adequate signs of hydration. Maternal full milk is coming in. See other consult notes for further details. A: Infant wt loss is: 6.5% and bili check is 9.4 Latch score is: attempted now. Sleepy from circ. Mom states latch is better since yesterday. Deniespain or issues. Mother reports feedings are: going well both sides. Aware of cluster feedings probably happening tonight. is content after feedings. has no supplementation orders- Infant has been exclusively breastfed during this hospitalization. P: mom to call if needs arise in am. number on board for easy access. Plan for home: reinforced maternal care tips- diet, fluid intake and pain management. Reinforced Infant care tips- feeding frequency, duration as well as signs of adequate hydration. Utilized maternal handbook- feeding diary and resource pages- corners turned down for easy access. Mom aware of how to tell if is getting enough at the breast. Mom verbalizes understanding all information at this time. Family has support and contact information for assistance as needed while inpatient as well as post discharge- via business card and maternal handbook. visit: 25 min Mildred Ralph MSN, BSN, RN, IBCLC * Note - Mildred Ralph RN - 08/24/2017 10:48 AM CDT attempted to follow up. Mom resting quietly at this time. Will follow up at later time. * Note - Mildred Ralph RN - 08/23/2017 11:32 AM CDT Follow up to see this feeding. Tips for better positioning and alignment at breast. Mom states painhas decreased with changes. Follow up prn and in am. conv 15min. See doc on this feeding. * Care Plan - Sailaja Vera GN - 08/23/2017 5:41 AM CDT Voiding independently. Pain controlled with PO pain meds. VSS * Care Plan - Sailaja Vera GN - 08/22/2017 6:54 AM CDT Up and voiding independently. Pain controlled with PO pain meds. VSS * Care Plan - Abbie Gómez RN - 08/21/2017 7:53 PM CDT Report received at bedside at 1530. Oriented patient to room and plan of care. Patient complained of nausea. Continued checking on patient and nausea continued. Patient had a bite of jello that she could not keep down. Decadron was given in recovery and Zofran was given at 1548 by nurse, but that did not bring relief. Patient complained of being shakey at [address] Jovel called and Phenergan was ordered per rectum x 1 dose. Inserted at 1903. Urine output is good and the red urine in now clear and oralia. Assisted with breast feeding and baby latched well. Report given to night nurse at bedside. documented in this encounter Plan of Treatment Upcoming Encounters Date Type Department Care Team (Late st Contact Info) Description 10/08/2024 9:45 AM CDT Office Visit [facility] SENIOR SCHEDULER - [facility] [address] [facility] [address] [place] [phone] Terrie Manning MD [address] [phone] documented as of this encounter Procedures Procedure Name Priority Date/Time Associated Diagnosis Comments TELEMETRY REPORT 08/25/2017 5:07 PM CDT SECTION 08/21/2017 11:0 5 AM CDT TYPE AND SCREEN Stat 08/21/2017 10:28 AM CDT BLOOD BANK DRAW ONLY Routine 08/20/2017 6:03 PM CDT CBC WITH DIFFERENTIAL Routine 08/20/2017 6:03 PM CDT SCALP ELECTRODE Routine 08/20/2017 5:51 PM CDT INTRAUTERINE PRESSURE CATHETER Routine 08/20/2017 5:51 PM CDT (BROTH-ENRICHED) GROUP B STREP DETECTION Routine 07/27/2017 HIV DETECTION W/REFLX CONFIRMATION Routine 01/14/2017 HEPATITIS B SURFACE ANTIGEN Routine 01/14/2017 RUBELLA IGG Routine 01/14/2017 RPR Routine 01/14/2017 TYPE AND SCREEN Routine 01/14/2017 documented in this encounter Results * TELEMETRY REPORT (08/25/2017 5:07 PM CDT) Provider Scanning ECG ORDERABLES * TYPE AND SCREEN (08/21/2017 10:28 AM CDT) ABO GROUP O 08/21/2017 11:02 AM CDT [facility] [facility] -- [facility] RH (D) TYPE Positive 08/21/2017 11:02 AM CDT [facility] [facility] -- [facility] ANTIBODY SCREEN Negative 08/21/2017 11:02 AM CDT [facility] [facility] -- [facility] Blood Venipuncture / Unknown 08/21/2017 10:28 AM CDT 08/21/2017 10:28 AM CDT Terrie Manning MD BLOOD BANK ORDERAB LES [facility] -- [facility] CLIA# [id number] [address] [place] [address] * (ABNORMAL) CBC WITH DIFFERENTIAL (08/20/2017 6:03 PM CDT) WBC 6.9 4.0 - 9.8 K/uL 08/20/2017 6:49 PM CDT [facility] [facility] - [facility] RBC 3.74(L) 3.90 - 4.90 M/uL 08/20/2017 6:49 PM CDT [facility] [facility] - . [facility] HEMOGLOBIN 11.2(L) 11.8 - 14.8 g/dL 08/20/2017 6:49 PM CDT [facility] [facility] HEMATOCRIT 35.5 35.5 - 44.0 % 08/20/2017 6:49 PM CDT [facility] [facility] MCV 94.9 82.0 - 99.0 fL 08/20/2017 6:49 PM CDT [facility] [facility] - [facility] MCH 29.9 27.2 - 32.6 pg 08/20/2017 6:49 PM CDT [facility] [facility] - . [facility] MCHC 31.5 31.5 - 35.5 g/dL 08/20/2017 6:49 PM CDT [facility] [facility] - [facility] RDW 13.9 11.5 - 14.5 % 08/20/2017 6:49 PM CDT [facility] [facility] RDW-STDEV 48.1 37.1 - 48.7 fL 08/20/2017 6:49 PM CDT [facility] [facility] PLATELETS 257 140 - 350 K/uL 08/20/2017 6:49 PM CDT [facility] [facility] - . [facility] MPV 9.8 9.3 - 12.4 fL 08/20/2017 6:49 PM CDT [facility] [facility] - [facility] NEUTROPHILS 67 % 08/20/2017 6:49 PM CDT [facility] [facility] - [facility] LYMPHOCYTES 21 % 08/20/2017 6:49 PM CDT [facility] - [facility] MONOCYTES 12 % 08/20/2017 6:49 PM CDT [facility] - [facility] EOSINOPHILS 0 % 08/20/2017 6:49 PM CDT [facility] - [facility] BASOPHILS 0 % 08/20/2017 6:49 PM CDT [facility] - [facility] IMMATURE GRANULOCYTES 0 % 08/20/2017 6:49 PM CDT [facility] NEUTROPHIL ABSOLUTE 4.61 1.90 - 7.00 K/uL 08/20/2017 6:49 PM CDT [facility] - [facility] LYMPHOCYTE ABSOLUTE 1.42 0.70 - 4.50 K/uL 08/20/2017 6:49 PM CDT [facility] - [facility] MONOCYTE ABSOLUTE 0.84 0.10 - 1.30 K/uL 08/20/2017 6:49 PM CDT [facility] EOSINOPHIL ABSOLUTE 0.03 0.00 - 0.70 K/uL 08/20/2017 6:49 PM CDT [facility] - [facility] BASOPHILS ABSOLUTE 0.01 0.00 - 0.20 K/uL 08/20/2017 6:49 PM CDT [facility] - [facility] IMMATURE GRANULOCYTES ABSOLUTE 0.03 0.00 - 0.03 K/uL 08/20/2017 6:49 PM CDT [facility] - [facility] Blood Venipuncture / Unknown 08/20/2017 6:03 PM CDT 08/20/2017 6:23 PM CDT Terrie Manning MD HEMATOLOGY ORDERAB LES [facility] - [facility] CLIA# [id number] [address] [facility] [address] [place] [address] * BLOOD BANK DRAW ONLY (08/20/2017 6:03 PM CDT) SPECIMEN HOLD, BLOOD Order Complete 08/20/2017 7:16 PM CDT [facility] -- [facility] Blood Venipuncture / Unknown 08/20/2017 6:03 PM CDT 08/20/2017 6:24 PM CDT Terrie Manning MD BLOOD BANK ORDERAB LES [facility] -- [facility] CLIA# [id number] [address] [place] [address] * (BROTH-ENRICHED) GROUP B STREP DETECTION (07/27/2017) ABSTRACTED STREP GROUP B CULTURE negative EXTERNAL LAB Historical Provider MICROBIOLOGY - GENER AL ORDERABLES EXTERNAL LAB * RPR (01/14/2017) ABSTRACTED RPR nonreactive EXTERNAL LAB Blood Historical Provider CHEMISTRY ORDERABLES EXTERNAL LAB * TYPE AND SCREEN (01/14/2017) ABSTRACTED ABOGROUP O EXTERNAL LAB ABSTRACTED RH(D) TYPE positive EXTERNAL LAB Blood Historical Provider BLOOD BANK ORDERABLE S EXTERNAL LAB * HIV DETECTION W/REFLX CONFIRMATION (01/14/2017) ABSTRACTED HIV-1 AND 2 ABS negative EXTERNAL LAB Blood Historical Provider CHEMISTRY ORDERABLES EXTERNAL LAB * HEPATITIS B SURFACE ANTIGEN (01/14/2017) ABSTRACTED HEPATITIS B SURFACE AG negative EXTERNAL LAB Blood Historical Provider CHEMISTRY ORDERABLES EXTERNAL LAB * RUBELLA IGG (01/14/2017) ABSTRACTED RUBELLA IGG immune EXTERNAL LAB Blood Historical Provider CHEMISTRY ORDERABLES EXTERNAL LAB documented in this encounter Visit Diagnoses Not on filedocumented in this encounter Administered Medications Inactive Administered Medications - up to 3 most recent administrations Medication Order MAR Action Action Date Dose Rate Site acetaminophen (TYLENOL) tablet 650 mg 650 mg, Oral, EVERY 6 HOURS, First dose on Mon08/21/17 at 1900, Until Discontinued, Routine, Post-op - Floor Given 08/25/2017 9:51 AM CDT 650 mg Given 08/25/2017 2:06 AM CDT 650 mg Given 08/24/2017 7:15 PM CDT 650 mg carboprost tromethamine (HEMABATE) 250 mcg/mL injection 1 mL 1 mL (250 mcg), IM, EVERY 15 MINUTES PRN, 8 doses, Starting on Mon08/21/17 at 1036, Until Mon08/25/17 at 1341, Other (See Comment), for excessive bleeding in the immediate period as needed after consultation with resident or attending physician - Maximum of 8 doses, Routine docusate sodium (COLACE) capsule 100 mg 100 mg, Oral, TWO TIMES DAILY, First dose on Mon08/21/17 at 2100, Until Discontinued, Routine, Post-op - Floor Given 08/25/2017 9:51 AM CDT 100 mg Given 08/24/2017 10:04 PM CDT 100 mg Given 08/24/2017 8:06 AM CDT 100 mg hydrOXYzine HCl (ATARAX) tablet 25 mg 25 mg, Oral, EVERY 6 HOURS PRN, Starting on Mon08/24/17 at 2227, Until Mon08/25/17 at 1341, for anxiety, Routine, Given 08/24/2017 10:37 PM CDT 25 m g ibuprofen (MOTRIN) tablet 600 mg 600 mg, Oral, EVERY 6 HOURS, First dose on Mon08/21/17 at 1900, Until Discontinued, Routine, Post-op - Floor Given 08/25/2017 9:51 AM CDT 600 mg Given 08/25/2017 2:06 AM CDT 600 mg Given 08/24/2017 7:15 PM CDT 600 mg lactated Ringers solution IV, at 125 mL/hr, CONTINUOUS, Starting on Mon08/21/17 at 1530, Until Mon08/25/17 at 1341, Routine, Post-op - Floor New Bag 08/21/2017 8:50 PM CDT 125 mL/hr lanolin (LANSINOH) 100 % topical ointment Ointment Topical, SEE ADMIN INSTRUCTIONS, Starting on Mon08/21/17 at 1518, Until Mon08/25/17 at 1341, Routine, Post-op - Floor Given 08/22/2017 10:36 AM CDT 7 Grams Nipple, Bilateral methylergonovine maleate (METHERGINE) 0.2 mg/mL (1 mL) injection 0.2 mg 0.2 mg, IM, EVERY 15 MINUTES PRN, 2 doses, Starting on Mon08/21/17 at 1036, Until Mon08/25/17 at 1341, Other (See Comment), for excessive bleeding in the immediate period as needed after consultation with resident or attending physician - Maximum of 2 doses, Routine miSOPROStol (CYTOTEC) tablet 800 mcg 800 mcg, Rectal, ONE TIME PRN, 1 dose, Starting on Mon08/21/17 at 1036, Until Mon08/25/17 at 1341, Other (See Comment), Physician consultation required before administration for appropriate medication selection, Routine nalbuphine (NUBAIN) injection 2.5 mg 2.5 mg, IV, EVERY 3 HOURS PRN, 8 doses, Starting on Mon08/21/17 at 1518, Until Mon08/25/17 at 1341, Itching, Routine, Post-op - Floor Given 08/22/2017 10:29 AM CDT 2.5 mg Given 08/22/2017 1:05 AM CDT 2.5 mg Given 08/21/2017 9:45 PM CDT 2.5 mg naloxone (NARCAN) 0.4 mg/mL injection 0.2 mg 0.2 mg, IV, EVERY 5 MINUTES PRN, 3 doses, Starting on Mon08/21/17 at 0119, Until Mon08/25/17 at 1341, Other (See Comment), For unexpected respiratory depression or other exagerrated response in the setting of narcotic administration, Routine, Intra-Procedure ondansetron (ZOFRAN) 4 mg/2 mL injection 4 mg 4 mg, IV, EVERY 6 HOURS PRN, Starting on Mon08/21/17 at 1518, Until Mon08/25/17 at 1341, Nausea/Emesis, Routine, Post-op - Floor Given 08/21/2017 3:48 PM CDT 4 mg oxyCODONE (ROXICODONE) tablet 5 mg 5 mg, Oral, EVERY 4 HOURS PRN, Starting on Mon08/22/17 at 1111, Until Mon08/25/17 at 1341, Pain (See admin instructions), Routine, Post-op - Floor Given 08/24/2017 3:55 PM CDT 5 mg Given 08/24/2017 12:07 PM CDT 5 mg Given 08/24/2017 8:06 AM CDT 5 mg oxyCODONE (ROXICODONE) tablet 5 mg 5 mg, Oral, EVERY 4 HOURS PRN, Starting on Mon08/21/17 at 1518, Until Mon08/25/17 at 1341, Pain (See admin instructions), Routine, Post-op - Floor Given 08/24/2017 10:05 PM CDT 5 mg oxytocin (PITOCIN) 30 units in lactated ringers 500 mL infusion 1 guerline-units/min (1 mL/hr), IV, TITRATE, Starting on Mon08/20/17 at 1800, Until Mon08/25/17 at 1341, Routine, Indication: Induction, Induction Reason: Elective greater than or equal to 39 weeks Rate Change 08/21/2017 9:04 AM CDT 13 guerline-units/min 13 mL/hr Rate Verify 08/21/2017 7:00 AM CDT 11 guerline-units/min 11 m L/hr Rate Verify 08/21/2017 6:30 AM CDT 11 guerline-units/min 11 m L/hr oxytocin in lactated ringers (PITOCIN) 20 unit/1,000 mL infusion Solution IV, at 999 mL/hr, CONTINUOUS PRN, Starting on Mon08/21/17 at 1036, Until Mon08/25/17 at 1341, Other (See Comment), excessive bleeding in the immediate period, Routine vit-iron fumarate-fa (WILLIAM ) 28 mg iron- 800 mcg per tablet 1 Tablet 1 Tablet, Oral, DAILY, First dose on Mon08/22/17 at 0900, Until Discontinued, Routine, Post-op - Floor Given 08/24/2017 10:12 PM CDT 1 Tablet Given 08/23/2017 9:55 PM CDT 1 Tablet Given 08/22/2017 9:17 PM CDT 1 Tablet sennosides-docusate sodium (SENNA-S) 8.6-50 mg per tablet 1 Tablet 1 Tablet, Oral, DAILY AT BEDTIME, First dose on Mon08/21/17 at 2100, Until Discontinued, Routine, Post-op - Floor Given 08/23/2017 9:53 PM CDT 1 Tab let Given 08/22/2017 9:17 PM CDT 1 Tablet simethicone chewable tablet 80 mg 80 mg, Oral, EVERY 6 HOURS PRN, Starting on Mon08/21/17 at 1518, Until Mon08/25/17 at 1341, Gas, Routine, Post-op - Floor Given 08/23/2017 10:44 AM CDT 80 mg documented in this encounter Active and Recently Administered Medications Times are shown in CDT. Scheduled Medication Order 08/23/2017 08/24/2017 08/25/2017 acetaminophen (TYLENOL) tablet 650 mg 650 mg, Oral, EVERY 6 HOURS, First dose on Mon08/21/17 at 1900, Until Discontinued, Routine, Post-op - Floor 0603 (Given - Provider: RUSTAM Rojas)0700 (Canceled Entry - Provider: RUSTAM Rojas)1213 (Given - Provider: Odalis Hanson RN)1844 (Given - Provider: Odalis Hanson RN) 0118 (Given - Provider: Vi Eason RN)0701 (Given - Provider: Vi Eason RN)1308 (Given - Provider: Odalis Hanson RN)1915 (Given - Provider: Odalis Hanson RN) 0206 (Given - Provider: Yu Leal RN)0951 (Given - Provider: Jasmyne Bello RN) docusate sodium (COLACE) capsule 100 mg 100 mg, Oral, TWO TIMES DAILY, First dose on Mon08/21/17 at 2100, Until Discontinued, Routine, Post-op - Floor 1044 (Given - Provider: Irma Quesada RN)2100 (Not Given - Provider: Vi Eason RN - Reason: Clarify-Other (Comment) - Comment: senna given) 0806 (Given - Provider: Odalis Hanson, ATTILA)220 (Given - Provider: Yu Leal, RN) 0951 (Given - Provider: Jasmyne Bello, ATTILA) ibuprofen (MOTRIN) tablet 600 mg 600 mg, Oral, EVERY 6 HOURS, First dose on Mon08/21/17 at 1900, Until Discontinued, Routine, Post-op - Floor 0249 (Canceled Entry - Provider: RUSTAM Rojas)0604 (Given - Provider: RUSTAM Rojas)1213 (Given - Provider: Odalis Hanson RN)1844 (Given - Provider: Odalis Hanson RN) 0118 (Given - Provider: Vi Eason RN)0701 (Given - Provider: Vi Eason RN)1309 (Given - Provider: Odalis Hanson RN)1915 (Given - Provider: Odalis Hanson RN) 0206 (Given - Provider: Yu Leal, ATTILA)0951 (Given - Provider: Jasmyne Bello, ATTILA) lanolin (LANSINOH) 100 % topical ointment Ointment Topical, SEE ADMIN INSTRUCTIONS, Starting on Mon08/21/17 at 1518, Until Mon08/25/17 at 1341, Routine, Post-op - Floor naloxone (NARCAN) 0.4 mg/mL injection 0.1 mg 0.1 mg, IV, SEE ADMIN INSTRUCTIONS, Starting on Mon08/21/17 at 1518, Until Mon08/25/17 at 1341, Routine, Post-op - Floor vit-iron fumarate-fa (WILLIAM ) 28 mg iron- 800 mcg per tablet 1 Tablet 1 Tablet, Oral, DAILY, First dose on Mon08/22/17 at 0900, Until Discontinued, Routine, Post-op - Floor 2154 (Given - Provider: Vi Eason RN) 2211 (Given - Provider: Yu Leal, ATTILA) sennosides-docusate sodium (SENNA-S) 8.6-50 mg per tablet 1 Tablet 1 Tablet, Oral, DAILY AT BEDTIME, First dose on Mon08/21/17 at 2100, Until Discontinued, Routine, Post-op - Floor 2152 (Given - Provider: Vi Eason, RN) 2100 (Not Given - Provider: Yu Leal, ATTILA - Reason: Medication already given) Continuous Medication Order 08/23/2017 08/24/2017 08/25/2017 lactated Ringers solution IV, at 125 mL/hr, CONTINUOUS, Starting on 08/21/17 at 1530, Until Mon08/25/17 at 1341, Routine, Post-op - Floor oxytocin (PITOCIN) 30 units in lactated ringers 500 mL infusion 1 guerline-units/min (1 mL/hr), IV, TITRATE, Starting on 08/20/17 at 1800, Until Mon08/25/17 at 1341, Routine, Indication: Induction, Induction Reason: Elective greater than or equal to 39 weeks PRN Medication Order 08/23/2017 08/24/2017 08/25/2017 calcium as carbonate (TUMS) 500 mg (200 mg elemental) chewable tablet 200 mg 200 mg, Oral, EVERY 6 HOURS PRN, Starting on Mon08/21/17 at 1518, Until Mon08/25/17 at 1341, Dyspepsia, Routine, Post-op - Floor carboprost tromethamine (HEMABATE) 250 mcg/mL injection 1 mL 1 mL (250 mcg), IM, EVERY 15 MINUTES PRN, 8 doses, Starting on Mon08/21/17 at 1036, Until Mon08/25/17 at 1341, Other (See Comment), for excessive bleeding in the immediate period as needed after consultation with resident or attending physician - Maximum of 8 doses, Routine hydrocortisone (ANUSOL-HC, PROCTOZONE-HC) 2.5 % rectal cream Rectal, TWO TIMES DAILY PRN, Starting on Mon08/21/17 at 1518, Until Mon08/25/17 at 1341, Hemorrhoids, Routine, Post-op - Floor hydrOXYzine HCl (ATARAX) tablet 25 mg 25 mg, Oral, EVERY 6 HOURS PRN, Starting on Shaila 08/24/17 at 2227, Until Mon08/25/17 at 1341, for anxiety, Routine, 7 (Given - Provider: Yu Leal, ATTILA) magnesium hydroxide (MILK OF MAGNESIA) oral suspension 30 mL 30 mL, Oral, NIGHTLY PRN, Starting on Mon08/21/17 at 1518, Until Mon08/25/17 at 1341, Constipation, Routine, Post-op - Floor methylergonovine maleate (METHERGINE) 0.2 mg/mL (1 mL) injection 0.2 mg 0.2 mg, IM, EVERY 15 MINUTES PRN, 2 doses, Starting on Mon08/21/17 at 1036, Until Mon08/25/17 at 1341, Other (See Comment), for excessive bleeding in the immediate period as needed after consultation with resident or attending physician - Maximum of 2 doses, Routine miSOPROStol (CYTOTEC) tablet 800 mcg 800 mcg, Rectal, ONE TIME PRN, 1 dose, Starting on Mon08/21/17 at 1036, Until Mon08/25/17 at 1341, Other (See Comment), Physician consultation required before administration for appropriate medication selection, Routine nalbuphine (NUBAIN) injection 2.5 mg 2.5 mg, IV, EVERY 3 HOURS PRN, 8 doses, Starting on Mon08/21/17 at 1518, Until Mon08/25/17 at 1341, Itching, Routine, Post-op - Floor naloxone (NARCAN) 0.4 mg/mL injection 0.2 mg 0.2 mg, IV, EVERY 5 MINUTES PRN, 3 doses, Starting on Mon08/21/17 at 0119, Until Mon08/25/17 at 1341, Other (See Comment), For unexpected respiratory depression or other exagerrated response in the setting of narcotic administration, Routine, Intra-Procedure ondansetron (ZOFRAN) 4 mg/2 mL injection 4 mg 4 mg, IV, EVERY 6 HOURS PRN, Starting on Mon08/21/17 at 1518, Until Mon08/25/17 at 1341, Nausea/Emesis, Routine, Post-op - Floor oxyCODONE (ROXICODONE) tablet 5 mg 5 mg, Oral, EVERY 4 HOURS PRN, Starting on Mon08/22/17 at 1111, Until Mon08/25/17 at 1341, Pain (See admin instructions), Routine, Post-op - Floor 0142 (Given - Provider: RUSTAM Rojas)0604 (Given - Provider: RUSTAM Rojas)1045 (Given - Provider: Irma Quesada RN)1521 (Given - Provider: Odalis Hanson RN)1923 (Given - Provider: Vi Eason, ATTILA) 0427 (Given - Provider: Vi Eason RN)0806 (Given - Provider: Odalis Hanson RN)1207 (Given - Provider: Odalis Hanson RN)1555 (Given - Provider: Odalis Hanson RN) oxyCODONE (ROXICODONE) tablet 5 mg 5 mg, Oral, EVERY 4 HOURS PRN, Starting on Mon08/21/17 at 1518, Until Mon08/25/17 at 1341, Pain (See admin instructions), Routine, Post-op - Floor 2205 (Given - Provider: Yu Leal RN) oxytocin in lactated ringers (PITOCIN) 20 unit/1,000 mL infusion Solution IV, at 999 mL/hr, CONTINUOUS PRN, Starting on Mon08/21/17 at 1036, Until Mon08/25/17 at 1341, Other (See Comment), excessive bleeding in the immediate period, Routine prochlorperazine maleate (COMPAZINE) tablet 10 mg 10 mg, Oral, EVERY 6 HOURS PRN, Starting on Mon08/21/17 at 1518, Until Mon08/25/17 at 1341, Nausea/Emesis, Routine, Post-op - Floor simethicone chewable tablet 80 mg 80 mg, Oral, EVERY 6 HOURS PRN, Starting on Mon08/21/17 at 1518, Until Mon08/25/17 at 1341, Gas, Routine, Post-op - Floor 1044 (Given - Provider: Irma Quesada RN) raúl patiño (TUCKS) 50 % topical pads 1 Each 1 Each, Topical, DAILY PRN, Starting on Mon08/21/17 at 1518, Until Mon08/25/17 at 1341, Discomfort, Routine, Post-op - Floor documented in this encounter Care Teams Gang Tailer Relationship Specialty Start Date End Date Terrie Manning MD PCP - General Obstetrics and Gynecology 05/27/13 documented as of this encounter
--- OUTSIDE RECORDS SUMMARY | 2024-05-27 15:11 | XMS_ITS | Encounter Summary ---
Author Organization [facility] Address [address] [place] [address] Care Team Providers Care Tire Inspector Name Role Phone Terrie Manning MD Primary Care Provider [phone] Reason for Referral * Eval and Treat (Routine) - Closed Specialty Diagnoses / Procedures Referred By Cheikh pichardo Referred To Contact Genetics Diagnoses Suspected damage to fetus from disease in mother, antepartum condition, single or unspecified fetus Mj Ha DO NO ADDRESS ON FILE Referral ID Status Reason Start Date Expiration Date Visits Requested Visits Authorized [id number] Closed Performing Department To Schedule (STL) 12/27/2018 12/28/2019 1 1 Encounter Details Date Type Department Care Team (Late st Contact Info) Description 12/27/2018 Orders Only [facility] Genetic Counseling Maternal [address] [place] [id number] Mj Ha DO NO ADDRESS ON FILE Suspected damage to fetus from disease in mother, antepartum condition, single or unspecified fetus (Primary Dx) Social History Tobacco Use Types [...] 9:45 AM CDT Office Visit [facility] - [facility] [place] [address] [address] Terrie Manning MD [facility] [address] [place] [address] Scheduled Referrals Name Type Priority Associated Diagnoses Orde r Schedule AMB REFERRAL TO GENETIC COUNSELING Outpatient Referral Routine Suspected damage to fetus from disease in mother, antepartum condition, single or unspecified fetus Ordered: 12/27/2018 documented as of this encounter Visit Diagnoses Diagnosis Suspected damage to fetus from disease in mother, antepartum condition, single or unspecified fetus- Primary documented in this encounter Care Teams Tire Inspector Relationship Specialty Start Date End Date Terrie Manning MD PCP - General Obstetrics and Gynecology 05/27/13 documented as of this encounter
--- OUTSIDE RECORDS SUMMARY | 2024-05-27 15:11 | XMS_ITS | Encounter Summary ---
Author Organization [facility] Address [address] [place] [address] Care Team Providers Care Bean Viner Name Role Phone Terrie Manning MD Primary Care Provider [phone] Encounter Details Date Type Department Care Team (Late st Contact Info) Description 08/11/2016 3:45 PM GLASS PRODUCTION MACHINE OPERATOR - 08/11/2016 5:00 PM GLASS PRODUCTION MACHINE OPERATOR Surgery [facility] Operating Room [address] [place] [address] Dustin Bill MD [address] [facility] [address] [address] HYSTEROSCOPY WITH DILATATION AND CURETTAGE SUCTION Surgery Details Date/Time Status Location OR Service Patient Class Case Class Case Type Trauma Case? 08/11/2016 3:[address] OR MAIN OR 03 Gynecology Surgical OP/Extended Care Emergent No Panel 1 Procedure LRB Anes Op Region Wound Class Comments HYSTEROSCOPY WITH DILATATION AND CURETTAGE SUCTION N/A General Cervix Clean Contaminated-II Surgeon Surgeon Role Service Panel Dustin Bill MD Primary Gynecology 1 Case Notes COMING FROM OFFICE documented in this encounter Social History Tobacco [...] Sign Reading Time Taken Comments Blood Pressure 112/64 08/11/2016 3:39 PM GLASS PRODUCTION MACHINE OPERATOR Pulse 102 08/11/2016 3:39 PM GLASS PRODUCTION MACHINE OPERATOR Temperature 36.8 ??C (98.3 ??F) 08/11/2016 3:39 PM CS T Respiratory Rate 20 08/11/2016 3:39 PM GLASS PRODUCTION MACHINE OPERATOR Oxygen Saturation 100% 08/11/2016 3:39 PM GLASS PRODUCTION MACHINE OPERATOR Inhaled Oxygen Concentration - - Weight 68 kg (150 lb) 08/11/2016 4:00 PM GLASS PRODUCTION MACHINE OPERATOR Height - - Body Mass Index 20.92 08/09/2016 6:31 AM GLASS PRODUCTION MACHINE OPERATOR documented in this encounter Discharge Instructions * Discharge Instructions* Jackelyn Alvarez RN - 08/11/2016 5:27 PM GLASS PRODUCTION MACHINE OPERATOR SAFETY For the next 24 hours, you may feel sleepy due to medicines used during your procedure. For this 24hour period or while you are on pain medication, DO NOT make any important decisions or sign any important papers. DO NOT drink any alcoholic beverages, including beer. DO NOT drive a car or operate machinery and power tools. For your safety and protection, we strongly recommend that a responsible adult be with you today and throughout the night. ACTIVITY Keep activities to a minimum the day of surgery. Increase activity level as tolerated. May shower 24 hours after surgery. No tampons, douching or intercourse until after your follow-up appointment unless otherwise instructed by your physician. May return to work 1-2 days after surgery. DIET You may resume a regular diet as tolerated. PAIN MEDICATION Headache remedies if necessary (Motrin, Advil, Nuprin, Ibuprofen, Aspirin, Tylenol, etc). Pain Medication given at . Next dose due @ . WOUND CARE Expect some vaginal bleeding for 1-7 days; Call if excessive (greater than 1 pad/hour). FOLLOW-UP Call the office to schedule a follow-up appointment with your surgeon. Pathology report will be back in 7 days after a D&C procedure. Once you are home, if you develop any of the following symptoms, call your physician: Difficulty in Breathing, persistent nausea or vomiting, excessive bleeding, pain that is unusual, excessive swelling or redness at incision site, temperature greater than 101 degrees. If you cannot contact your physician, call or come to the Emergency Room at [facility] ([phone]) or the nearest Emergency Room. In an emergency, Call 911. S PRODUCTION MACHINE OPERATOR documented in this encounter Medications at Time of Discharge Medication Sig Dispensed Refills Start Date End Date HYDROcodone-acetaminoph en (NORCO) 5-325 mg tablet Take 1 Tablet by mouth every 4 hours as needed for Pain, Moderate. Max Daily Amount: 6 Tablets 15 Tablet 08/11/2016 08/25/2017 progesterone micronized (PROMETRIUM) 100 mg Capsule Take by mouth daily. 018 Vit 68-Cmty-VT-DSS (ADVANCED ) 90-1-50 mg Tablet Take 1 Tablet by mouth daily. 03/06/2019 documented as of this encounter Progress Notes * Shameka Yan RN - 08/11/2016 5:45 PM CST Offered to leave message regarding patient's loss with Hattie Thompson of the [facility] [employer] program. Pt gave permission and message was left with Hattie to request follow up. S PRODUCTION MACHINE OPERATOR documented in this encounter H&P Notes * Dustin Bill MD - 08/11/2016 3:52 PM CST HPI: 30 yo with IVF at 9 wks with incomplete ab. Before US in the office today, the pt bled and passed the fetus. She cont's to bleed heavily and US shows a significant amount of tissue remaining in the uterus. Discussed with the patient and her that the appropriate management of incomplete is suction D&C. Will then check to document all tissue has been removed withthe hysteroscope. Discussed the surgical risks of bleeding, infection, and damage to bowel/bladder if her uterus would be perforated by any of the instruments. PMhx: Med- none Surgical - diagnostic laparoscopy Meds PNV NKDA Exam - limited to pelvic. Large amt of bleeding from the cx. Enlarged uterus. Dx: Incomplete . Plan: IV antibiotic prophylaxis with Ancef. Suction D&C/hysteroscopy S PRODUCTION MACHINE OPERATOR documented in this encounter OR Notes * Operative Report - Dustin Bill MD - 08/12/2016 3:25 AM CST [place], [place] [address] Operative Report CSN: [id number] DATE OF SERVICE: 08/11/2016 SURGEON Dustin Bill MD PREOPERATIVE DIAGNOSIS Incomplete with hemorrhage. POSTOPERATIVE DIAGNOSIS Incomplete with hemorrhage. OPERATION NAME Suction dilation and curettage followed by hysteroscopy. ANESTHESIA General endotracheal. ESTIMATED BLOOD LOSS 200 mL in the vagina and then 50 mL during the procedure. COMPLICATIONS None. DRAINS None. DESCRIPTION OF PROCEDURE The patient was brought to the operating room and placed on the operating table in the dorsal supine position. She had SCD hose placed on her lower extremities. After adequate general endotracheal anesthesia was administered, the patient was placed in the dorsal lithotomy position. Once she was placed in the lithotomy position, it was noted that she was still bleeding quite heavily from the vagina . She was then prepped and draped in the usual sterile fashion for vaginal procedure. Examination under anesthesia revealed the uterus to be enlarged. Placement of a bivalve speculum into the vagina revealed a large amount of blood and clot, which was removed from the vagina. This made it possible to visualize the cervix. The cervix was then grasped with an Allis clamp and a paracervical block was administered with 0.25% Marcaine with epinephrine, 5 mL was injected on each side of the cervix. When this has been accomplished, the Allis clamp was placed anteriorly on the cervix and the uterus was sounded to 9-1/2 cm. At this point, the cervix was noted to be widely dilated and a 7 mm curved suction curette was utilized to perform the suction curettage. A moderate amount of tissue was removed during the first passage with the 7 mm curette. After this, the bleeding slowed tremendously. Several passes were taken with the 7 mm curved curette and once no further tissue had been removed on 2 separate passes of the curette, the hysteroscope was inserted into the uterine cavity under direct vi sualization utilizing saline for distention. It was necessary to place a clamp across the cervix toreduce the amount of dilation to allow adequate distention. During this visualization with the hysteroscope, there was still tissue that was apparent on the lateral camacho of the uterus. Therefore, the hysteroscope was removed, and at this point, a 9 mm curved curette was utilized instead for the suction D and C. Utilizing the 9 mm curved suction curette, a further amount of tissue was removed. Once no further tissue was apparent during 2 passes with the 9 mm curette, the hysteroscopy was again carried out, again using a clamp to further reduce the amount of dilation of the cervix. Excellent distention was noted. The tubal ostia were identified bilaterally for orientation. The anterior, posterior, and lateral camacho then appeared to have all of the tissue been removed. There was no evidenceof any retained products of conception at this point, and at this point, the procedure was completed. Once the instruments were removed from the uterus, there was minimal bleeding from the uterine cer vix. There was no bleeding from the paracervical injection sites. The instruments were then removedfrom the vagina. All sponge, instrument, and needle counts were correct. The IV was running. The patient was awakened and taken to postanesthesia recovery in good condition. Her blood type is O positive, and therefore she does not require RhoGAM. GLJ:MEDQ DID: [id number] Dictated by: Dustin Bill MD * Hilda-OP - Jackelyn Alvarez RN - 08/11/2016 5:41 PM CST Knowledge deficit related to post-discharge care Interventions: Assess learning needs and willingness to learn; give clear, concise explanations of the care required post-discharge; address patient/family questions and concerns; provide teaching asindicated Expected Outcome: Patient and/or family/significant other demonstrate(s) behaviors required for performance of activities enhancing recovery post-discharge Outcome Met: States understanding of discharge instructions. Potential for pain related to surgical/procedural intervention Interventions: Assess level of pain/comfort utilizing verbal/nonverbal pain scales; assess culturalor judaism indicators attached to pain; administer pain medications as prescribed; utilize non-pharmacologic pain control and comfort measures Expected Outcome: Patient demonstrates and reports adequate pain control Outcome Met: States pain is at a tolerable level. S PRODUCTION MACHINE OPERATOR * Operative Report - Dustin Bill MD - 08/11/2016 5:00 PM CST Brief Postoperative Note Angela Alarcon [id number] Pre-operative Diagnosis: Incomplete Post-operative Diagnosis: Same Procedure/Anesthesia: Procedure(s) and Anesthesia Type: * HYSTEROSCOPY WITH DILATATION AND CURETTAGE SUCTION - General Surgeons/Assistants: Surgeon(s) and Role: * Dustin Bill MD - Primary Specimens Removed: products of conception Estimated Blood Loss: 250 cc. 200 in the vagina at the start of the procedure. 50 cc during the procedure. Complications:none Dustin Bill MD S PRODUCTION MACHINE OPERATOR documented in this encounter Miscellaneous Notes * Care Plan - Shameka Yan RN - 08/11/2016 5:20 PM CST Potential for pain related to surgical/procedural intervention Interventions: Assess level of pain/comfort utilizing verbal/nonverbal pain scales; assess culturalor judaism indicators attached to pain; administer pain medications as prescribed; utilize non-pharmacologic pain control and comfort measures Expected Outcome: Patient demonstrates and reports adequate pain control Outcome Met: prn meds available. S PRODUCTION MACHINE OPERATOR * Care Plan - Dustin Bill MD - 08/11/2016 5:00 PM CST No intercourse or tampons for 2 weeks. Call for any heavy bleeding or severe pain. Pain meds as per script. May use 600 mg. Of Ibuprofen every 6 hrs as needed. May be up as tolerated. May shower in 6 hours. Diet may be increased as tolerated. Call the exchange for any concerns--[phone] Call the office for an appt in 2-3 weeks [phone] S PRODUCTION MACHINE OPERATOR * Care Plan - Delicia Denton RN - 08/11/2016 3:45 PM CST Knowledge deficit related to procedure/environment Interventions: Assess learning needs and willingness to learn; give clear, concise explanations of the environment and sequence of events surrounding the periop experience; address patient/family questions and concerns; provide teaching as indicated, provide teaching related to postoperative pain assessment utilizing pain scales Expected Outcome: Patient verbalizes or demonstrates awareness/understanding of surgery and perioperative experience Outcome Met: Patient/Family verbalizes understanding of pre op procedures. S PRODUCTION MACHINE OPERATOR documented in this encounter Plan of Treatment Upcoming Encounters Date Type Department Care Team (Late st Contact Info) Description 10/08/2024 9:45 AM CDT Office Visit [facility] [employer] QUALITY ENGINEER - [facility] [address] [place] [address] Terrie Manning MD [facility] [address] [address] documented as of this encounter Procedures Procedure Name Priority Date/Time Associated Diagnosis Comments TELEMETRY REPORT 08/12/2016 5:56 PM GLASS PRODUCTION MACHINE OPERATOR PATHOLOGY Pathology 08/11/2016 4:33 PM GLASS PRODUCTION MACHINE OPERATOR CBC WITHOUT DIFFERENTIAL Stat 08/11/2016 4:03 PM GLASS PRODUCTION MACHINE OPERATOR HYSTEROSCOPY WITH DILATATION AND CURETTAGE SUCTION 08/11/2016 3:20 PM GLASS PRODUCTION MACHINE OPERATOR Case Notes COMING FROM OFFICE documented in this encounter Results * TELEMETRY REPORT (08/12/2016 5:56 PM GLASS PRODUCTION MACHINE OPERATOR) Provider Scanning ECG ORDERABLES * PATHOLOGY (08/11/2016 4:33 PM GLASS PRODUCTION MACHINE OPERATOR) CASE REPORT Surgical Pathology Report ? Case: [id number] ? Authorizing Provider: ??Dustin Bill MD ?Collected: ? 08/11/2016 04:33 PM ? Ordering Location: ? [facility] ?Received: ?08/12/2016 06:42 AM ? Operating Room ? Pathologist: ? Monica Calvillo MD ? Specimen: ?Products Of Conception ? 08/15/2016 5:44 PM CDT [facility] FINAL DIAGNOSIS Products of conception, hysteroscopy with dilatation and curettage: - Implantation site. - No chorionic villi identified. 08/15/2016 5:44 PM [employer] [facility] IMEN DESCRIPTION Products of conception. 08/15/2016 5:44 PM [facility] OPERATIVE PROCEDURE Hysteroscopy with dilatation and curettage suction. 08/15/2016 5:44 PM [facility] CLINICAL DIAGNOSIS Not provided. 08/15/2016 5:44 PM [facility] GROSS DESCRIPTION The specimen is received in a single container labeled Angela WhyteLien Wilsonjaorn, products of conception and consists of two suction traps containing a 5 x 4.8 x 1.5-cm aggregate of red tissue. No hydropic villi are identified. No parts are found. The entire specimen is submitted in cassettes A1 to A5. LUCILLE/ale 08/15/2016 5:44 PM [facility] MICROSCOPIC DESCRIPTION The slides are labeled [id number] and Angela Alarcon. Sections of the products of conception reveal multiple fragments of implantation site and decidua. No chorionic villi are present. Correlation with the quantitative beta hCG is recommended. Slides are shown to Dr. Macdonald, and she concurs with the diagnosis. 08/15/2016 5:44 PM [facility] COMMENT Special stain and/or immunohistochemical results are interpreted with controls that demonstrate appropriate staining reactions. Note on use of immunocytochemistry reagents: This test was developed and its performance characteristic determined by [facility], Department of Laboratory Medicine. It has not been cleared or approved by the U.S. Food and Drug Administration. The FDA has determined that such clearance or approval is not necessary. The test is used for clinical purpose. It should not be regarded as investigational or for research. This laboratory is certified to perform high complexity testing. Case types starting with WS, WF, WB and WH are performed by [address], [address]. All other case types are performed by [address], [address]. 08/15/2016 5:44 PM [facility] Tissue (Products Of Conception) 08/11/2016 4:33 PM GLASS PRODUCTION MACHINE OPERATOR 08/12/2016 6:42 AM GLASS PRODUCTION MACHINE OPERATOR Dustin Bill MD PATHOLOGY/CYTOLOGY [facility] CLIA# [id number] [place] [address] * (ABNORMAL) CBC WITHOUT DIFFERENTIAL (08/11/2016 4:03 PM GLASS PRODUCTION MACHINE OPERATOR) WBC 12.3(H) 4.0 - 9.8 K/uL 08/11/2016 4:19 PM GLASS PRODUCTION MACHINE OPERATOR [facility] RBC 3.18(L) 3.90 - 4.90 M/uL 08/11/2016 4:19 PM GLASS PRODUCTION MACHINE OPERATOR [facility] . [facility] HEMOGLOBIN 9.9(L) 11.8 - 14.8 g/dL 08/11/2016 4:19 PM GLASS PRODUCTION MACHINE OPERATOR [facility] . [facility] HEMATOCRIT 29.6(L) 35.5 - 44.0 % 08/11/2016 4:19 PM GLASS PRODUCTION MACHINE OPERATOR [facility] . [facility] MCV 93.1 82.0 - 99.0 fL 08/11/2016 4:19 PM GLASS PRODUCTION MACHINE OPERATOR [facility] MCH 31.1 27.2 - 32.6 pg 08/11/2016 4:19 PM GLASS PRODUCTION MACHINE OPERATOR [facility] MCHC 33.4 31.5 - 35.5 g/dL 08/11/2016 4:19 PM GLASS PRODUCTION MACHINE OPERATOR [facility] PLATELETS 398(H) 140 - 350 K/uL 08/11/2016 4:19 PM GLASS PRODUCTION MACHINE OPERATOR [facility] MPV 9.4 9.3 - 12.4 fL 08/11/2016 4:19 PM GLASS PRODUCTION MACHINE OPERATOR [facility] RDW 12.3 11.5 - 14.5 % 08/11/2016 4:19 PM GLASS PRODUCTION MACHINE OPERATOR [facility] RDW-STDEV 42.4 37.1 - 48.7 fL 08/11/2016 4:19 PM GLASS PRODUCTION MACHINE OPERATOR [facility] Blood Venipuncture / Unknown 08/11/2016 4:03 PM GLASS PRODUCTION MACHINE OPERATOR 08/11/2016 4:09 PM GLASS PRODUCTION MACHINE OPERATOR Dustin Bill MD HEMATOLOGY ORDERABLE [facility]# [id number] [address] [place] [address] documented in this encounter Visit Diagnoses Not on filedocumented in this encounter Administered Medications Inactive Administered Medications - up to 3 most recent administrations Medication Order MAR Action Action Date Dose Rate Site bupivacaine-EPINEPHrin e (PF) (SENSORCAINE MPF WITH EPI) 0.25 %-1:200,000 injection INTRA-PROCEDURE PRN, Starting on Shaila 08/11/16 at 1633, Until Shaila 08/11/16 at 1702, Routine, Intra-op Given 08/11/2016 4:33 PM GLASS PRODUCTION MACHINE OPERATOR 10 mL Operative Site diphenhydrAMINE (BENADRYL) injection 12.5 mg 12.5 mg, IV, POST-PROCEDURE ONCE PRN, 2 doses, Starting on Shaila 08/11/16 at 1603, Until Shaila 08/11/16 at 2122, Nausea/Emesis, Routine, PACU HYDROcodone-acetaminop hen (NORCO) 5-325 mg per tablet 1 Tablet 1 Tablet, Oral, EVERY 4 HOURS PRN, Starting on Shaila 08/11/16 at 1801, Until Shaila 08/11/16 at 2122, Pain (See admin instructions), Routine Given 08/11/2016 6:06 PM GLASS PRODUCTION MACHINE OPERATOR 1 Tablet lactated ringers solution IV, at 125 mL/hr, POST-PROCEDURE CONTINUOUS, Starting on Shaila 08/11/16 at 1615, Until Shaila 08/11/16 at 2122, Routine, PACU New Summer 08/11/2016 4:12 PM GLASS PRODUCTION MACHINE OPERATOR 125 mL/hr morphine 4 mg/mL injection 2 mg 2 mg, IV, POST-PROCEDURE Q 5 MINUTES PRN, 10 doses, Starting on Shaila 08/11/16 at 1603, Until Shaila 08/11/16 at 2122, Pain, For pain 2-10, Routine, PACU morphine 4 mg/mL injection 4 mg 4 mg, IV, POST-PROCEDURE Q 5 MINUTES PRN, 2 doses, Starting on Shaila 08/11/16 at 1603, Until Shaila 08/11/16 at 2122, Pain, Moderate, For pain scale 4-6, Routine, PACU morphine injection 5 mg 5 mg, IV, POST-PROCEDURE Q 5 MINUTES PRN, 2 doses, Starting on Shaila 08/11/16 at 1603, Until Shaila 08/11/16 at 2122, Pain, Severe, For pain scale 7-10, Routine, PACU ondansetron (ZOFRAN) 4 mg/2 mL injection 4 mg 4 mg, IV, POST-PROCEDURE ONCE PRN, 1 dose, Starting on Shaila 08/11/16 at 1603, Until Shaila 08/11/16 at 2122, Nausea/Emesis, Routine, PACU documented in this encounter Active and Recently Administered Medications Times are shown in GLASS PRODUCTION MACHINE OPERATOR. Scheduled Medication Order 08/09/2016 08/10/2016 08/11/2016 ceFAZolin (ANCEF) IVPB 2,000 mg (COMPLETED) 2,000 mg, IV, ONE TIME ONLY, 1 dose, On Shaila 08/11/16 at 1600, Routine, Antibiotic Indication: Surgical prophylaxis 1625 (Given - Provid er: ROBIN Gray)1635 (Stopped - Provider: ROBIN Gray) Continuous Medication Order 08/09/2016 08/10/2016 08/11/2016 lactated ringers solution IV, at 125 mL/hr, POST-PROCEDURE CONTINUOUS, Starting on Shaila 08/11/16 at 1615, Until Shaila 08/11/16 at 2122, Routine, PACU 1612 (New Bag - Prov ider: Delicia Denton RN)1615 (Due)1844 (Stopped - Provider: Yanira Pantoja, ATTILA)1919 (Stopped - Provider: Jackelyn Alvarez RN) PRN Medication Order 08/09/2016 08/10/2016 08/11/2016 bupivacaine-EPINEPHrine (PF) (SENSORCAINE MPF WITH EPI) 0.25 %-1:200,000 injection (CANCELED) INTRA-PROCEDURE PRN, Starting on Shaila 08/11/16 at 1633, Until Shaila 08/11/16 at 1702, Routine, Intra-op 1633 (Given - Provid er: Dustin Bill MD) diphenhydrAMINE (BENADRYL) injection 12.5 mg 12.5 mg, IV, POST-PROCEDURE ONCE PRN, 2 doses, Starting on Shaila 08/11/16 at 1603, Until Shaila 08/11/16 at 2122, Nausea/Emesis, Routine, PACU HYDROcodone-acetaminophen (NORCO) 5-325 mg per tablet 1 Tablet 1 Tablet, Oral, EVERY 4 HOURS PRN, Starting on Shaila 08/11/16 at 1801, Until Shaila 08/11/16 at 2121, Pain (See admin instructions), Routine 1806 (Given - Provid er: Jackelyn Alvarez RN) morphine 4 mg/mL injection 2 mg 2 mg, IV, POST-PROCEDURE Q 5 MINUTES PRN, 10 doses, Starting on Shaila 08/11/16 at 1603, Until Shaila 08/11/16 at 2121, Pain, For pain 2-10, Routine, PACU morphine 4 mg/mL injection 4 mg 4 mg, IV, POST-PROCEDURE Q 5 MINUTES PRN, 2 doses, Starting on Shaila 08/11/16 at 1603, Until Shaila 08/11/16 at 2121, Pain, Moderate, For pain scale 4-6, Routine, PACU morphine injection 5 mg 5 mg, IV, POST-PROCEDURE Q 5 MINUTES PRN, 2 doses, Starting on Shaila 08/11/16 at 1603, Until Shaila 08/11/16 at 2121, Pain, Severe, For pain scale 7-10, Routine, PACU ondansetron (ZOFRAN) 4 mg/2 mL injection 4 mg 4 mg, IV, POST-PROCEDURE ONCE PRN, 1 dose, Starting on Shaila 08/11/16 at 1603, Until Shaila 08/11/16 at 2121, Nausea/Emesis, Routine, PACU documented in this encounter Care Teams Bean Viner Relationship Specialty Start Date End Date Terrie Manning MD PCP - General Obstetrics and Gynecology 05/27/13 documented as of this encounter
--- OUTSIDE RECORDS SUMMARY | 2024-05-27 15:11 | XMS_ITS | Encounter Summary ---
Author Organization [facility] Address [address] [place] [address] Care Team Providers Care Warranty Coordinator Name Role Phone Terrie Baca MD Primary Care Provider [phone]- [phone] Reason for Visit * Reason Comments Routine Visit Encounter Details Date Type Department Care Team (Late st Contact Info) Description 03/27/2019 10:20 AM CDT visit [facility] PHYSICAL OPTICS TEACHER - Medical [address] [address] Terrie Baca MD [facility] [address] [place] [address] Trisomy 18 of fetus in current , single or unspecified fetus (Primary Dx); History of low vertical section; 35 weeks [...] Sign Reading Time Taken Comments Blood Pressure 120/80 03/27/2019 10:47 AM CDT Pulse - - Temperature - - Respiratory Rate - - Oxygen Saturation - - Inhaled Oxygen Concentration - - Weight 81.5 kg (179 lb 9.6 oz) 03/27/2019 10:47 AM CDT Height - - Body Mass Index 25.41 03/01/2019 5:07 PM CDT documented in this encounter Progress Notes * Terrie Baca MD - 03/27/2019 11:24 AM CDT 35-37 Weeks LOUIE SUBJECTIVE: Reports +FM; no LOF, VB, regular UCs. OBJECTIVE: See flowsheet. ASSESSMENT: 33 y.o. at 35w4d wks PLAN: C/S 04/01. Labor precautions. Pt to call/come with further questions/concerns. Terrie Baca MD documented in this encounter Plan of Treatment Upcoming Encounters Date Type Department Care Team (Late st Contact Info) Description 10/08/2024 9:45 AM CDT Office Visit [facility] PHYSICAL OPTICS TEACHER - [facility] [address] [address] Terrie Baca MD [address] [facility] [address] [place] [address] documented as of this encounter Visit Diagnoses Diagnosis Trisomy 18 of fetus in current , single or unspecified fetus- Primary History of low vertical section 35 weeks gestation of state, incidental documented in this encounter Care Teams Warranty Coordinator Relationship Specialty Start Date End Date Terrie Baca MD PCP - General Obstetrics and Gynecology 05/27/13 documented as of this encounter
--- OUTSIDE RECORDS SUMMARY | 2024-05-27 15:11 | XMS_ITS | Encounter Summary ---
Author Organization [facility] Address [address] [place] [address] Care Team Providers Care Celery Tier Name Role Phone Terrie Manning MD Primary Care Provider [phone]- [phone] Reason for Visit * Auth/Cert Specialty Diagnoses / Procedures Referred By Contac t Referred To Contact Obstetrics Diagnoses eil Stlo Labor [address] [place] [address] Referral ID Status Reason Start Date Expiration Date Visits Re quested Visits Authorized [id number] 1 1 Encounter Details Date Type Department Care Team (Latest Contact Info) Description 08/20/2017 5:02 PM CDT - 08/25/2017 11:36 AM CDT Hospital Encounter [facility] Mother/Baby 6C [address] [place] [address] Terrie Manning MD [address] [facility] [address] [place] [address] Discharge Disposition: Home or Self [...] Sign Reading Time Taken Comments Blood Pressure 126/87 08/25/2017 7:00 AM CDT Pulse 76 08/25/2017 7:00 AM CDT Temperature 36.7 ??C (98 ??F) 08/25/2017 7:00 AM CDT Respiratory Rate 18 08/25/2017 7:00 AM CDT Oxygen Saturation 100% 08/22/2017 9:17 PM CDT Inhaled Oxygen Concentration - - [...] Discharge date: Attending Physician: Terrie Manning MD [place] Data: Information for the patient's : Mary Alarcon [[id number]] 1 Minute Score: 5 (08/21/17 1147) 5 Minute Score: 8 (08/21/17 1147) Information for the patient's : Mary Alarcon [[id number]] Weight: 4139 g (9 lb 2 oz) [...] MD Quantity: 30 Tablet Refills: 0 Vit 63-Vdnf-AB-DSS 90-1-50 mg Tablet Commonly known as: ADVANCED [...] Dispensed Refills Start Date End Date Vit 58-Rilw-YN-DSS (ADVANCED ) 90-1-50 mg Tablet Take 1 Tablet by mouth daily. 03/06/2019 documented as of this encounter Progress Notes * Jasmyne Bello RN - 08/25/2017 10:22 AM CDT Pt. Will be leaving via w/c with . Home per private car. * Charles Acuña [...] Sitting Sitting Sitting Pulse: 91 85 Resp: 18 20 Temp: 97.6 ??F (36.4 ??C) 98 ??F [...] attending Charles Acuña MD, PGY-1 Dept. Of [employer] Pager: [phone] * Yu Leal RN - 08/25/2017 6:31 AM CDT Pt up ad radha, anxious/crying when infant was crying. Reported to me she had [...] current care. Home in am. KLeMoineMD * Cole Cox DO - 08/24/2017 7:36 AM CDT [...] Sitting Pulse: 90 100 91 Resp: 18 18 18 18 Temp: 97.7 ??F (36.5 ??C) 97.4 [...] Increase ambulation - Continue routine post-op care oR Cox DO PGY1 Dept [employer] Pager [phone] * Larissa Barksdale MD - 08/23/2017 1:07 [...] post-op care. Ro Cox DO PGY1 Dept [employer] Pager [phone] * Terrie Manning MD - 08/22/2017 9:12 [...] Plan: Continue current care KLeMoineMD * Cole Cox DO - 08/22/2017 6:41 AM CDT OB Progress Note Subjective: Pain well controlled. Tolerating diet. + flatus. Minimal lochia. Denies chest pain, shortness of breath, fevers, chills, or calf pain. No complaints. Objective: Vitals: 08/21/17 1900 08/21/17 1920 08/22/17 0110 08/22/17 0515 BP: 111/71 111/69 105/62 BP Location: Right arm Right arm Patient Position (BP): Sitting Supine Pulse: 97 99 Resp: Temp: 98.2 ??F (36.8 ??C) 98.1 ??F [...] post-op care Ro Cox DO PGY1 Dept [employer] Pager [phone] * Sailaja Vera GN - 08/22/2017 3:30 [...] epidural. Dr. Yousif called. Epidural approved. * Oriaan Fink RN - 08/21/2017 12:29 AM CDT [...] FHR: 140, mod variability, +accels, no decels [place]: q2min Active Problems: Normal labor and delivery Assessment/Plan: 31 y.o. @ 40w2d 1. EIL - AROM with amniohook. Thin meconium stained fluid returned. - Pitocin, 9 mu/min 2. FHR tracing Category 1 3. Anticipate Frederick Jovel DO * Vi Bob RN - 08/21/2017 12:[address] Jovel at bedside to verify if AROM was successful. SVE 3/70/-2. AROM performed. Large amount of meconium stained [...] FHR: 140, mod variability, +accels, no decels [place]: occasional Active Problems: Normal labor and delivery [...] CC: Elective induction of labor HPI: Angela Alarcon is a 31 y.o. @ 40w1d who [...] Delivery Anes PTL Lv 2 Current 1 08/2016 SAB [employer]AIL [employer]ER Hx: Hx of abnormal pap smear in [...] 2015 ??? HX WISDOM TEETH EXTRACTION ??? AR COLONOSCOPY FLX DX W/COLLJ SPEC WHEN PFRMD 06/06/2013 COLONOSCOPY performed by Xavi Aquino MD at [facility] ??? AR ESOPHAGOGASTRODUODENOSCOPY TRANSORAL DIAGNOSTIC 06/06/2013 ESOPHAGOGASTRODUODENOSCOPY performed by Xavi Aquino MD at [facility] ??? AR HYSTEROSCOPY,W/ENDO BX N/A 08/11/2016 HYSTEROSCOPY WITH DILATATION AND CURETTAGE SUCTION performed by Dustin Bill MD at [facility] ??? AR ORAL SURGERY FHx: Negative for genetic tendencies or bleeding disorders SHx: denies tobacco, alcohol, or illicit drug use Medications: No current facility-administered medications on file prior to encounter. Current Outpatient Prescriptions on File Prior to Encounter Medication Sig Dispense Refill ??? Vit 87-Omkc-TX-DSS (ADVANCED ) 90-1-50 mg Tablet Take 1 [...] FHR: 140, mod variability, +accels, no decels [place]: irregular q 8min BSUS: vertex Assessment/Plan: 31 y.o. @ 40w1d admitted for EIL, uncomplicated 1. Elective induction of labor - SVE 2cm, 70, -2 on admission - BSUS: vertex - Pitocin per protocol - GBS neg 2. status - NST reactive category 1 3. labs: - Blood type O+ - RI/NR/-/- 4. Anticipate RN discussed with MD Sarah Grullon MD Resident Physician, [facility], [place], [place] Pager [phone] FHT Addendum: FHR: 140, moderate variability, accels no decels [place]: q 4-5 min Category 1 Frederick Jovel DO [employer] Resident, PGY-1 Pager [phone] documented in this encounter Consult Notes * Mildred Ralph RN - 08/23/2017 9:47 AM CDTAssociated Order(s): IP CONSULT TO visit is follow up to yesterday. S: 2 days post delivery. Male . . O: see previous notes for further details. A: not in room at this time. Circumcision planned prior to discharge in 2 days. Parents aware of how this procedure may impact feedings for several hours post delivery. Wt loss is 5.1%. Mom c/o some tenderness maddi with latch. Encouraged to call when she is ready to feed again. number on board for easy access. Mom has quality pump if needed. 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 Briefly discussed. Aware of [...] Ralph, MSN, BSN, RN, IBCLC * Ladan Silver RN - 08/22/2017 6:12 PM CDT This is mother's first baby and she wishes to breastfeed. Mother concerned that has been sleepy. Mother reports that infant fed well with the last feeding. wrapped and being held by family. Discussed [...] Manning MD - 08/29/2017 10:19 PM CDT [place], [place] [address] Operative Report CSN: [id number] DATE OF SERVICE: 08/21/2017 SURGEON Terrie Manning MD PREOPERATIVE DIAGNOSES 1. Term intrauterine . 2. Transverse arrest. POSTOPERATIVE DIAGNOSES 1. Term intrauterine , 2. Transverse arrest. OPERATION NAME Low transverse section with T extension and breech delivery. ANESTHESIA Epidural. WOOD SETTER 1. Sumaya Stoddard DO, PGY 1 2. Ernestine Grijalva DO COMPLICATIONS None. ESTIMATED BLOOD LOSS 800 mL. FLUIDS Per anesthesia record. FINDINGS Male infant, LOT presentation. Apgars 5 and 8. weight [...] fashion. The incision was extended laterally. The infant's head was in LOT presentation deep into the pelvis. Inserted my hand easily around the 's head, but the 's head was unable to be flexed due [...] devices for DVT prophylaxis throughout the procedure. KL:MEDQ DID: [id number] Dictated by: Terrie Manning MD * Anesthesia Post Evaluation - Chato Orourke, - 08/22/2017 7:16 AM CDT Post - Operative Pain Service Note Post op day #1 status post duramorph. VSS: Pulse: 99 (08/22/17514) BP: 105/62 (08/22/17514) Resp: 16 (08/22/17514) Temp: 36.7 ??C (08/22/17514) Pain Rating: Rest: 1 (08/22/17514) Description: Quality: soreness (08/22/17514) Sedation: no Pruritis: no Nausea/vomitting: no Advance to oral pain medication 20 hours post delivery. Delivery Date : 08/21/17 (03/19/18 1152) Delivery Time : 1127 (08/21/17 1152) Chato Orourke DO * Anesthesia Post Evaluation - Chato Orourke DO - 08/22/2017 7:16 AM CDT OB Anesthesia Post-Operative Assesment 08/22/2017 7:16 AM Angela Alarcon, status post regional anesthesia for section. Patient seen and evaluated: Respiratory Function Resp: 16 (08/22/17 0515) SpO2: 100 % (08/22/17 05) Able to breathe and cough freely Able to maintain O2 saturation greater than 92% on room air Cardiovascular Function Heart Rate: 96 bpm (08/21/17 1920) BP: 105/62 (08/22/17 0515) BP within 20% of preanesthetic level Mental Status, Neuro Fully awake Able to move 4 extremities voluntarily. No focal sensory deficits or weakness. Temperature Temp: 36.7 ??C (08/22/17 0515) Pain Pain Rating: Rest: 1 (08/22/17 05) Presence of Pain: complains of pain/discomfort (08/22/17 0515) Postoperative Hydration Intake/Output Summary (Last 24 hours) at 08/22/17 0716 Last data filed at 08/22/17 0520 Gross per 24 hour Intake 7807.4 ml Output 6405 ml Net 1402.4 ml Nausea and Vomiting Signs/Symptoms: intermittent nausea (08/21/17 1935) Able to drink fluids, no nausea, no vomiting Narrative No apparent Anesthesia related complications Chato Orourke DO 08/22/2017 7:16 AM * Hilda-OP - Sharon Finney RN - 08/21/2017 12:20 PM CDT 1205 Pt brought to the OR and then transferred to the OR bed. EFM placed and FHR is between 120 isu553. The pt's abdomen was cleaned with Dura-prep. * Brief Op Note - Sumaya Stoddard DO - 08/21/2017 12:08 PM CDT Brief Postoperative Note Angela Alarcon [id number] Pre-operative Diagnosis: 1. Arrest of descent 2. [...] not appear to qualify. * Note - Mildred Ralph RN - 08/24/2017 12:08 PM CDT visit is per pathway and order. Tomorrow, discharge is planned for patient and infant. S: Discharge for mom and infant- 3 days post delivery. Circumcision today. Parents aware of how this procedure may impact feedings x next few hours. O: has adequate feedings that are appropriate in frequency and duration. Infant also has adequate signs of hydration. Maternal full milk is coming in. See other consult notes for further details. A: Infant wt loss is: 6.5% and bili check is 9.4 Latch score is: attempted now. Sleepy from circ. Mom states latch is better since yesterday. Deniespain or issues. Mother reports feedings are: going well both sides. Aware of cluster feedings probably happening tonight. Infant is content after feedings. Infant has no supplementation orders- has been exclusively breastfed during this hospitalization. P: mom to call if needs arise in am. number on board for easy access. Plan for home: reinforced maternal care tips- diet, fluid intake and pain management. Reinforced care tips- feeding frequency, duration as well [...] and maternal handbook. visit: 25 min Mildred Ralph, MSN, BSN, RN, IBCLC * Note - [...] 10/08/2024 9:45 AM CDT Office Visit [facility] [employer] - [facility] [address] [address] [address] Terrie Manning MD [address] [facility] [address] [place] [address] documented as of this [...] ABO GROUP O 08/21/2017 11:02 AM CDT [facility] RH (D) TYPE Positive 08/21/2017 11:02 AM CDT [facility] ANTIBODY SCREEN Negative 08/21/2017 11:02 AM CDT [facility] Blood Venipuncture / Unknown 08/21/2017 10:28 AM CDT 08/21/2017 10:28 AM CDT Terrie Manning MD BLOOD BANK ORDERAB LES [facility] CLIA# [id number] [address] [place] [address] * (ABNORMAL) CBC WITH DIFFERENTIAL (08/20/2017 6:03 PM CDT) [facility] WBC 6.9 4.0 - 9.8 K/uL 08/20/2017 6:49 PM CDT [facility] RBC 3.74(L) 3.90 - 4.90 M/uL 08/20/2017 6:49 PM CDT [facility] HEMOGLOBIN 11.2(L) 11.8 - 14.8 g/dL 08/20/2017 6:49 PM CDT [facility] HEMATOCRIT 35.5 35.5 - 44.0 % 08/20/2017 6:49 PM CDT [facility] MCV 94.9 82.0 - 99.0 fL 08/20/2017 6:49 PM CDT [facility] - . [facility] MCH 29.9 27.2 - 32.6 pg 08/20/2017 6:49 PM CDT [facility] - [facility] MCHC 31.5 31.5 - 35.5 g/dL 08/20/2017 6:49 PM CDT [facility] - . [facility] RDW 13.9 11.5 - 14.5 % 08/20/2017 6:49 PM CDT [facility] RDW-STDEV 48.1 37.1 - 48.7 fL 08/20/2017 6:49 PM CDT [facility] - . [facility] PLATELETS 257 140 - 350 K/uL 08/20/2017 6:49 PM CDT [facility] - . [facility] MPV 9.8 9.3 - 12.4 fL 08/20/2017 6:49 PM CDT [facility] . [facility] NEUTROPHILS 67 % 08/20/2017 6:49 PM CDT [facility] LYMPHOCYTES 21 % 08/20/2017 6:49 PM CDT [facility] MONOCYTES 12 % 08/20/2017 6:49 PM CDT [facility] EOSINOPHILS 0 % 08/20/2017 6:49 PM CDT [facility] BASOPHILS 0 % 08/20/2017 6:49 PM CDT [facility] IMMATURE GRANULOCYTES 0 % 08/20/2017 6:49 PM CDT [facility] - . [facility] NEUTROPHIL ABSOLUTE 4.61 1.90 - 7.00 K/uL 08/20/2017 6:49 PM CDT [facility] - . [facility] LYMPHOCYTE ABSOLUTE 1.42 0.70 - 4.50 K/uL 08/20/2017 6:49 PM CDT [facility] - . [facility] MONOCYTE ABSOLUTE 0.84 0.10 - 1.30 K/uL 08/20/2017 6:49 PM CDT [facility] EOSINOPHIL ABSOLUTE 0.03 0.00 - 0.70 K/uL 08/20/2017 6:49 PM CDT [facility] BASOPHILS ABSOLUTE 0.01 0.00 - 0.20 K/uL 08/20/2017 6:49 PM CDT [facility] - . [facility] IMMATURE GRANULOCYTES ABSOLUTE 0.03 0.00 - 0.03 K/uL 08/20/2017 6:49 PM CDT [facility] Blood Venipuncture / Unknown 08/20/2017 6:03 PM CDT 08/20/2017 6:23 PM CDT Terrie Manning MD HEMATOLOGY ORDERAB LES [facility] CLIA# [id number] [address] [place] [id number] * BLOOD BANK DRAW ONLY (08/20/2017 6:03 PM CDT) [facility] SPECIMEN HOLD, BLOOD Order Complete 08/20/2017 7:16 PM CDT [facility] Blood Venipuncture / Unknown 08/20/2017 6:03 PM CDT 08/20/2017 6:24 PM CDT Terrie Manning MD BLOOD BANK ORDERAB LES [facility] CLIA# [id number] [address] [place] [address] * (BROTH-ENRICHED) GROUP B STREP DETECTION (07/27/2017) ABSTRACTED STREP GROUP B CULTURE negative EXTERNAL LAB Historical Provider MICROBIOLOGY - GENER AL ORDERABLES Performing Organization Address [facility] Co de Phone Number EXTERNAL LAB * RPR (01/14/2017) ABSTRACTED RPR nonreactive EXTERNAL LAB Blood Historical Provider CHEMISTRY ORDERABLES Performing Organization Address City/[facility] Co de Phone Number EXTERNAL LAB * TYPE AND SCREEN (01/14/2017) ABSTRACTED ABOGROUP O EXTERNAL LAB ABSTRACTED RH(D) TYPE positive EXTERNAL LAB Blood Historical Provider BLOOD BANK ORDERABLE S Performing Organization Address [facility] Co de Phone Number EXTERNAL LAB * HIV DETECTION W/REFLX CONFIRMATION (01/14/2017) ABSTRACTED HIV-1 AND 2 ABS negative EXTERNAL LAB Blood Historical Provider CHEMISTRY ORDERABLES Performing Organization Address City/[facility]/ZIP Co de Phone Number EXTERNAL LAB * HEPATITIS B SURFACE ANTIGEN (01/14/2017) ABSTRACTED HEPATITIS B SURFACE AG negative EXTERNAL LAB Blood Historical Provider CHEMISTRY ORDERABLES Performing Organization Address City/[facility]/ZIP Co de Phone Number EXTERNAL LAB * RUBELLA IGG (01/14/2017) ABSTRACTED RUBELLA IGG immune EXTERNAL LAB Blood Historical Provider CHEMISTRY ORDERABLES Performing Organization Address City/[facility] Co de Phone Number EXTERNAL LAB documented in this encounter Visit Diagnoses Diagnosis Normal labor and delivery Normal delivery documented in this encounter Administered Medications Inactive [...] Given 08/24/2017 7:15 PM CDT 650 mg azithromycin (ZITHROMAX) IVPB 500 mg 500 mg, IV, ONE TIME ONLY, 1 dose, On Mon08/21/17 at 1045, Routine, Antibiotic Indication: Surgical prophylaxis New Bag 08/21/2017 11:03 AM CDT 500 mg carboprost tromethamine (HEMABATE) 250 mcg/mL injection [...] 100 mL IVPB (PREMIX) 2,000 mg, IV, PRE-PROCEDURE ONCE, 1 dose, Starting on Mon08/21/17 at 1035, Until Mon08/21/17 at 1114, Routine, Pre-op, Antibiotic Indication: Surgical prophylaxis New Bag 08/21/2017 10:44 AM CDT 2,000 m g 200 mL/hr CEFAZOLIN 2 GRAM/100 ML IN DEXTROSE(ISO-OSMOTIC) INTRAVENOUS PIGGYBACK (CABINET OVERRIDE) 1 dose, Starting on Mon08/21/17 at 1037, Until Mon08/21/17 at 1114, Annie PARTIDALL: cabinet override dexamethasone (DECADRON) injection 4 mg 4 mg, IV, ONE TIME ONLY, 1 dose, On Mon08/21/17 at 1430, Stat Given 08/21/2017 2:39 PM CDT 4 mg docusate sodium (COLACE) capsule 100 mg 100 [...] Given 08/24/2017 7:15 PM CDT 600 mg ketorolac (TORADOL) injection 30 mg 30 mg, IV, ONE TIME ONLY, 1 dose, On Mon08/21/17 at 1215, Routine, (OB POST-OP PAIN SERVICE) Given 08/21/2017 1:09 PM CDT 30 mg lactated Ringers solution IV, at 125 mL/hr, CONTINUOUS, Starting on Mon08/20/17 at 1745, Until Mon08/21/17 at 1520, Routine New Bag 08/21/2017 11:26 AM CDT New Bag 08/21/2017 9:06 AM CDT 125 mL/hr Bag Switched 08/21/2017 1:51 AM CDT 125 mL/hr lactated Ringers solution IV, at 125 [...] before administration for appropriate medication selection, Routine morphine PF (ASTRAMORPH,DURAMORPH) 1 mg/mL injection 3 mg 3 mg, Epidural, INTRA-PROCEDURE ONCE, 1 dose, Starting on Mon08/21/17 at 1136, Until Mon08/21/17 at 1131, Routine Given 08/21/2017 11:31 AM CDT 3 mg nalbuphine (NUBAIN) injection 2.5 mg 2.5 mg, [...] IV, EVERY 6 HOURS PRN, Starting on Mon08/20/17 at 1751, Until Mon08/21/17 at 1522, Nausea/Emesis, Routine Given 08/21/2017 8:59 AM CDT 4 mg ondansetron (ZOFRAN) 4 mg/2 mL injection 4 [...] mL/hr New Bag 08/21/2017 11:28 AM CDT oxytocin in lactated ringers (PITOCIN) 20 unit/1,000 mL infusion Solution IV, at 999 mL/hr, CONTINUOUS PRN, Starting on Mon08/21/17 at 1036, Until Mon08/25/17 at 1341, Other (See Comment), excessive bleeding in the immediate period, Routine OXYTOCIN IN LACTATED RINGERS 30 UNIT/500 ML INTRAVENOUS SOLUTION (CABINET OVERRIDE) 1 dose, Starting on Mon08/20/17 at 1801, Until 08/20/17 at 1808, Tram PARTIDALL: cabinet override vit-iron fumarate-fa (WILLIAM ) 28 mg iron- 800 mcg per tablet 1 Tablet 1 Tablet, Oral, DAILY, First dose on Mon08/22/17 at 0900, Until Discontinued, Routine, Post-op - Floor Given 08/24/2017 10:12 PM CDT 1 Tablet Given 08/23/2017 9:55 PM CDT 1 Tablet Given 08/22/2017 9:17 PM CDT 1 Tablet promethazine (PHENERGAN) rectal suppository 25 mg 25 mg, Rectal, ONE TIME ONLY, 1 dose, On Mon08/21/17 at 1945, Routine Given 08/21/2017 7:02 PM CDT 25 mg sennosides-docusate sodium (SENNA-S) 8.6-50 mg per tablet [...] ATTILA)0951 (Given - Provider: Jasmyne Bello, ATTILA) docusate sodium (COLACE) capsule 100 mg 100 mg, Oral, TWO TIMES DAILY, First dose on Mon08/21/17 at 2100, Until Discontinued, Routine, Post-op - Floor 1044 (Given - Provider: Irma Quesada RN)2100 (Not Given - Provider: Vi Eason RN - Reason: Clarify-Other (Comment) - Comment: dontrell given) 08 (Given - Provider: Odalis Hanson RN)220 (Given - Provider: Yu Leal RN) 0951 (Given - Provider: Jasmyne Bello RN) ibuprofen (MOTRIN) tablet 600 mg 600 [...] RN)0951 (Given - Provider: Jasmyne Bello RN) lanolin (LANSINOH) 100 % topical ointment Ointment [...] - Floor 2154 (Given - Provider: Vi Eason, ATTILA) 2211 (Given - Provider: Yu Leal, ATTILA) sennosides-docusate sodium (SENNA-S) 8.6-50 mg per tablet 1 Tablet 1 Tablet, Oral, DAILY AT BEDTIME, First dose on Mon08/21/17 at 2100, Until Discontinued, Routine, Post-op - Floor 2152 (Given - Provider: Vi Eason RN) 2099 (Not Given - Provider: Yu Leal, ATTILA [...] Rectal, TWO TIMES DAILY PRN, Starting on 08/21/17 at 1518, Until Mon08/25/17 at 1341, Hemorrhoids, Routine, Post-op - Floor hydrOXYzine HCl (ATARAX) tablet 25 mg 25 mg, Oral, EVERY 6 HOURS PRN, Starting on Shaila 08/24/17 at 2227, Until Mon08/25/17 at 1341, for anxiety, Routine, 2236 (Given - Provider: Yu Leal RN) magnesium hydroxide (MILK OF MAGNESIA) oral suspension [...] Odalis Hanson RN)1923 (Given - Provider: Vi Eason RN) 0427 (Given - Provider: Vi Eason RN)0806 [...] Oral, EVERY 6 HOURS PRN, Starting on 08/21/17 at 1518, Until Mon08/25/17 at 1341, Gas, Routine, Post-op - Floor 1044 (Given - Provider: Irma Quesada RN) raúl patiño ([facility]) 50 % topical pads 1 Each 1 Each, Topical, DAILY PRN, Starting on 08/21/17 at 1518, Until Mon08/25/17 at 1341, Discomfort, Routine, Post-op - Floor documented in this encounter Care Teams Celery Tier Relationship Specialty Start Date End Date Terrie Manning MD PCP - General Obstetrics and Gynecology 05/27/13 documented as of this encounter
--- OUTSIDE RECORDS SUMMARY | 2024-05-27 15:11 | XMS_ITS | Encounter Summary ---
Author Organization [facility] Address [address] [place] [address] Care Team Providers Care Planer Operator Name Role Phone Terrie Baca MD Primary Care Provider [phone]- [phone] Reason for Visit * Auth/Cert Specialty Diagnoses / Procedures Referred By Contac t Referred To Contact Obstetrics and Gynecology Diagnoses EDC 04/27 Hx of classical Trisomy 18 Procedures SECTION [address] [address] Referral ID Status Reason Start Date Expiration Date Visits Re quested Visits Authorized [id number] 1 1 Encounter Details Date Type Department Care Team (Latest Contact Info) Description 04/01/2019 5:46 AM CDT - 04/03/2019 1:08 PM CDT Hospital Encounter [address] [address] Terrie Baca MD [address] [facility] [address] [place] [address] Discharge Disposition: Home or Self [...] Sign Reading Time Taken Comments Blood Pressure 124/81 04/03/2019 8:12 AM CDT Pulse 95 04/03/2019 8:12 AM CDT Temperature 36.3 ??C (97.4 ??F) 04/03/2019 8:12 AM CD T Respiratory Rate 18 04/03/2019 8:12 AM CDT Oxygen Saturation 100% 04/03/2019 8:12 AM CDT Inhaled Oxygen Concentration - - [...] date: Attending Physician0 : Terrie Baca MD [place] Data: Information for the patient's : Blanca Alarcon [[id number]] Information for the patient's : Blanca Alarcon [[id number]] tab Discharge Diagnosis 1. non-labor Hospital Procedures 1. none. Pertinent History & Physical See H&P. Hospital Course Uncomplicated. Discharge Labs HEMOGLOBIN Date Value Ref Range Status 04/01/2019 12.1 11.8 - 14.8 g/dL Final PLATELETS Date Value Ref Range Status 04/01/2019 255 140 - 350 K/uL Final Discharge Condition:[id number] stable. Disposition She is discharged to home. [...] Refills: 0 STOP taking these medications Vit 80-Cpwa-ZD-DSS 90-1-50 mg Tablet Commonly known as: ADVANCED [...] of this encounter Progress Notes * Lena Stoddard, ATTILA - 04/03/2019 11:00 AM CDT Spoke with Angela and Alvin about the [employer] [facility] program and provided them with the bereavement literature and Heartprints packet. They were appreciative. I also gave Angela the gift card for the nabor yeboah necklace. They are spending time with Flaco and planning on discharging around noon. We discussed the home information and I told them that I spoke with Silverio Garcia, the sewer and drain technician of [facility]. He stated that there would not be a fee for any servicesprovided and that the family should contact him when they are ready to finalize their plans. They were very thankful for the assistance. They have completed the paperwork for Flaco and I instructed them to call me when they are ready to be discharged. Lena Stoddard RN [facility]prints * Lena Stoddard, ATTILA - 04/03/2019 9:30 AM CDT Met with Angela and Alvin at 0930. Angela was holding baby Flaco. Grieving appropriately. Erica getting footprints for mementos. Alvin had some questions regarding arrangements and I told him I would call for them today. They wanted to use [facility]. They are opting for cremation. I told them I will come back with information for the home and some bereavement literature. * Pina Montemayor, ATTILA - 04/03/2019 12:12 AM CDT Received call from NICU nurse. Baby Flaco did pass. Family in room with pt. Weldon called to room for emotional support. Heartprints [...] with baby and family alone. * Lena Stoddard, ATTILA - 04/02/2019 2:28 PM CDT Pt has been out of her room and visiting with family and baby in Dhaval's room in the NICU. Pt goingoutside for fresh air. Will check back and see if she needs anything or has any questions. Lena Stoddard RN [facility] * Terrie Baca MD - 04/02/2019 10:04 AM CDT Note Subjective: Day 1: Delivery The patient feels well. Pain is well controlled with current medications. The patient is ambulating well. The patient is tolerating a normal diet. [...] Doing well postoperatively.. [facility] * Lena Stoddard RN - 04/02/2019 9:17 AM CDT Checked on [...] or needs to talk. Lena Stoddard RN [facility] * Millie Vargas RN - 04/02/2019 9:00 AM CDT Spoke to Dr. Claire to get epidural removed. * Pina Montemayor RN - 04/02/2019 1:20 AM CDT Spoke with [...] pt's room to introduce myself and the [employer] [facility] program. I told Angela and her family that I will be here to assist them in any way to make this situation easier. I told them that we can discuss more later on but to enjoy their time with Flaco. I informed them that I will be checking on Alvin Miller, and Flaco. The family have Dhaval's room in the NICU to gather in. They were very appreciative. Lena Stoddard RN [facility] * Flora Glover RN - 03/29/2019 12:37 PM CDT Pre-Operative Patient Education: Today's Date: 03/29/2019 Patient: Angela Alarcon is a 33 y.o. female : 1985 Confirms understanding of the following patient education: [] Date and time of scheduled procedure 04/01 @ 0745 [] Personal belongings policy-leave all jewelry at home [] Arrival time and location Arrive by 0545 to [facility]. [] Oral intake instructions per OB Anesthesia [...] if any questions. Opportunity provided for questions. Dry Room Operator required: AMPARO Glover RN * Beth Pike RN - [...] voicemail and call back number for questions Dry Room Operator required: N/A Beth Pike RN * Hortencia Rodriguez RN - 03/21/2019 1:08 PM CDT Images from the original note were not included. [facility] CARE TEAM [address] [facility] [place] [address] CARE TEAM CONSULT NOTE To view Reports/Consultation notes please visit the below tabs in Chart Review: Ultrasound Reports-???Images?? tab MFM Consultation (if applicable)- Media tab Pediatric Specialty Consultation- Notes tab PRIMARY FCT COORDINATOR: Hortencia Rodriguez RN PATIENT DEMOGRAPHICS: PATIENT NAME: Angela Whyte Ivana DATE OF : 1985 PATIENT Estimated Date of Delivery: 04/27/19 /PARA : PRESS SET UP: Dr. Baca DIAGNOSIS: Trisomy 18 per amniocentesis. [...] 03/21/19 in the Meditation Room of the [facility] for a scheduled NICU consult with Dr. [...] Angela Alarcon. Hortencia Rodriguez RN, BSN Care Technical Services Assistant [phone] * Hortencia Rodriguez RN - 02/26/2019 2:19 PM CDT Images from the original note were not included. [facility] CARE TEAM [address] [place] [address] CARE TEAM CONSULT NOTE To view Reports/Consultation notes please visit the below tabs in Chart Review: Ultrasound Reports-???Images?? tab MFM Consultation (if applicable)- Media tab Pediatric Specialty Consultation- Notes tab PRIMARY FCT COORDINATOR: Hortencia Rodriguez RN PATIENT DEMOGRAPHICS: PATIENT NAME: Angela Alarcon DATE OF : 1985 PATIENT Estimated Date of Delivery: 04/27/19 /PARA : PRESS SET UP: Dr. Baca DIAGNOSIS: Trisomy 18 with multiple anomalies MATERNAL: History of T incision on uterus DELIVERY PLAN: Repeat scheduled c/s 04/01/19 at 0745 Consultation Note: Received a call from Angela Brennenmahogany today requesting a NICU consult. Angela has [...] Baca's office Consultations: Genetic Counseling with Jeimy Cook Genetic counselor completed 12/27/18 prior to amniocentesis Genetic Amniocentesis 12/27/18 NICU consultation is scheduled 03/20/[address] Elgin Baca was updated by Hortencia Rodriguez RN by [employer] inbox note Angela Isabell Katiejaron was reminded to call Dr. Baca's office with any medical issues or concerns. Angela Isabell Ivana states understanding of information provided today. FCT contact information was reviewed. The Care Team will continue to follow and support Angelaara Alarcon. Hortencia Rodriguez RN, BSN Care Technical Services Assistant [phone] * Hortencia Rodriguez RN - 12/27/2018 2:03 PM CDT Images from the original note were not included. [facility] CARE TEAM [address] [place] [address] CARE TEAM ENROLLMENT CONSULT NOTE To view Reports/Consultation notes please visit the below tabs in Chart Review: Ultrasound Reports-???Images?? tab MFM Consultation (if applicable)- Media tab Pediatric Specialty Consultation- Notes tab PRIMARY FCT COORDINATOR: Hortencia Rodriguez RN PATIENT DEMOGRAPHICS: PATIENT NAME: Angela Alarcon DATE OF : 1985 PATIENT ESTIMATED DUE DATE: 04/27/19 /PARA: PRESS SET UP: Dr. 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 T incision on uterus DELIVERY PLAN: At [facility] with Dr. Baca ENROLLMENT NOTE: A referral to the Care Team is made by [place]. I met with Angela Isabell Ivana for an initial consult in the [facility] on 12/26/18, following a scheduled [...] Care Appointment: Co-mangangement of this patient by [facility] and Dr. Baca Surveillance: Last Growth: 12/26/18 Comprehensive Ultrasound at 22w4d Next Growth: 01/24/19 f/u at a 4 week interval Plan: TBD Consultations: Genetic Counseling with Jeimy Cook, Genetic counselor completed 12/27/18 prior to amniocentesis Genetic Amniocentesis 12/27/18 Additional consultation as indicated Dr. Baca was updated per Dr. Ha via phone call on 12/26/18. Angela was reminded to call Dr. Baca's office with any medical issues or concerns. All Angela Alarcon's questions were addressed by Dr Ha. Patient states understanding of information provided today. FCT contact informationreviewed. The Care Team will continue to follow and support Angela Alarcon. Hortencia Rodriguez RN, BSN, RNC-OB Care Technical Services Assistant [phone] documented in this encounter H&P Notes * Jean-PaulIrlanda cortes, - 04/01/2019 6:21 AM CDT OB History [...] DILATION AND CURETTAGE ??? HX LEEP PROCEDURE 2016 ??? HX WISDOM TEETH EXTRACTION ??? MN DELIVERY ONLY N/A 08/21/2017 SECTION performed by Terrie Baca MD at [facility] L&D ??? MN COLONOSCOPY FLX DX W/COLLJ SPEC WHEN PFRMD 06/06/2013 COLONOSCOPY performed by Xavi Aquino MD at [facility] ??? MN ESOPHAGOGASTRODUODENOSCOPY TRANSORAL DIAGNOSTIC 06/06/2013 ESOPHAGOGASTRODUODENOSCOPY performed by Xavi Aquino MD at [facility] ??? MN HYSTEROSCOPY,W/ENDO BX N/A 08/11/2016 HYSTEROSCOPY WITH DILATATION AND CURETTAGE SUCTION performed by Dustin Bill MD at [facility] ??? MN ORAL SURGERY REGISTERED SAFETY ENGINEER Hx: +H/o abnormal pap smears S/P LEEP [...] FHR: 120, mod variability, +accels, no decels [place]: q2-3min Assessment/Plan: 33 y.o. @ 36w2d admitted [...] with Dr. Baca. Irlanda Ames DO PGY3 SUCTION WORKER Resident Pager#: [phone] documented in this encounter Consult Notes * [...] cared for by Dr. Melo Rey in [place], [place]. I spent 19 minutes in face [...] hours: the patient will be transferred to [facility] and Flaco will be admitted to the [...] op day #1. Epidural 04/01/19 0844-Rate: 2 (04/01/19856) Epidural medication: Demerol Vitals: Pulse: 81 (04/02/19404) BP: 106/69 (04/02/19404) Resp: 17 (04/02/19404) Temp: [...] Anesthesia Post-Operative Assesment 04/02/2019 6:49 AM Angela Alarcon, status post regional anesthesia [...] deficits or weakness. Temperature Temp: 36.5 ??C (04/02/19 0405) Pain Pain Rating: Rest: 4 (04/02/19 06) Presence of Pain: complains of pain/discomfort (04/02/19 06) Postoperative Hydration Intake/Output Summary (Last 24 hours) at 04/02/2019 0649 Last data filed at 04/02/2019 0636 Gross per 24 hour Intake 2767.4 ml [...] Post-operative Diagnosis: same Surgeon: Terrie Baca MD Barrel Charrer: Brenda Armstrong MD Anesthesia: CSE EBL: 330 [...] Delayed Cord Clamping: (Refer to Delivery Summary) [place] Weight: Refer to Delivery Summary. 1 Minute: [...] scalpel. This incision was extended laterally digitally. was delivered as noted in the [...] Infant underwent comfort care with NICU. Brenda Armstrong MD documented in this encounter Miscellaneous Notes * Care Plan - Laura Young - 04/03/2019 1:55 PM CDT initiated an encounter with Angela and her , Alvin, in response to the of their daughter, Flaco. Angela was holding Flaco at the time of this encounter. Their business performance specialist has been involved with them since Flaco's . I offered poems and prayers that they could use as options forFlaco's and burial. They were accepting of these. Laura Young Critical access hospital [facility] phone [phone] * Care Plan - Millie Vargas RN [...] were not included. [facility] Vaginal Protocol [facility] Approved by: [facility] - Medical Executive Committee Approval Date: [...] CBC with differential [facility] Pre-Operative Protocol [facility] Approved by: [facility] - Medical Executive Committee Approval Date: 01/17/2019 ORDERS ARE ENTERED ???PER PROTOCOL?? Follow this protocol for all section patients (scheduled and unscheduled). Enter the protocol in the patient's electronic health record using Brandfolderphrase: .cesareanbirthprotocol Nursing Orders: o Initiate the Pathway [...] consultation. Adult Influenza and/or Pneumococcal Vaccine Protocol [facility] ORDERS ARE ENTERED ???PER PROTOCOL?? Enter the protocol in the patient???s electronic health record using Brandfolderphrase: .flupneumoniavaccineprotocol Nursing Orders: ??? Screening is performed [...] CDT Office Visit [facility] SUCTION WORKER - Medical [facility] [address] [address] Terrie Baca MD [address] [facility] [address] [address] documented as of this encounter [...] - 9.8 K/uL 04/01/2019 6:27 AM CDT [facility] RBC 3.99 3.90 - 4.90 M/uL 04/01/2019 6:27 AM CDT [facility] HEMOGLOBIN 12.1 11.8 - 14.8 g/dL 04/01/2019 6:27 AM CDT [facility] HEMATOCRIT 37.2 35.5 - 44.0 % 04/01/2019 6:27 AM CDT [facility] MCV 93.2 82.0 - 99.0 fL 04/01/2019 6:27 AM CDT [facility] MCH 30.3 27.2 - 32.6 pg 04/01/2019 6:27 AM CDT [facility] MCHC 32.5 31.5 - 35.5 g/dL 04/01/2019 6:27 AM CDT [facility] RDW 13.2 11.5 - 14.5 % 04/01/2019 6:27 AM CDT [facility] RDW-STDEV 44.5 37.1 - 48.7 fL 04/01/2019 6:27 AM CDT [facility] PLATELETS 255 140 - 350 K/uL 04/01/2019 6:27 AM CDT [facility] MPV 9.7 9.3 - 12.4 fL 04/01/2019 6:27 AM CDT [facility] NEUTROPHILS 74 % 04/01/2019 6:27 AM CDT [facility] LYMPHOCYTES 15 % 04/01/2019 6:27 AM CDT [facility] MONOCYTES 11 % 04/01/2019 6:27 AM CDT [facility] EOSINOPHILS 0 % 04/01/2019 6:27 AM CDT [facility] BASOPHILS 0 % 04/01/2019 6:27 AM CDT [facility] IMMATURE GRANULOCYTES 0 % 04/01/2019 6:27 AM CDT [facility] NEUTROPHIL ABSOLUTE 6.56 1.90 - 7.00 K/uL 04/01/2019 6:27 AM CDT [facility] LYMPHOCYTE ABSOLUTE 1.29 0.70 - 4.50 K/uL 04/01/2019 6:27 AM CDT [facility] MONOCYTE ABSOLUTE 0.97 0.10 - 1.30 K/uL 04/01/2019 6:27 AM CDT [facility] EOSINOPHIL ABSOLUTE 0.04 0.00 - 0.70 K/uL 04/01/2019 6:27 AM CDT [facility] BASOPHILS ABSOLUTE 0.03 0.00 - 0.20 K/uL 04/01/2019 6:27 AM CDT [facility] IMMATURE GRANULOCYTES ABSOLUTE 0.03 0.00 - 0.03 K/uL 04/01/2019 6:27 AM CDT [facility] Blood Venipuncture / Unknown 04/01/2019 6:09 AM CDT 04/01/2019 6:21 AM CDT Terrie Baca MD HEMATOLOGY ORDERAB LES [facility] [employer] [facility] - [facility]# [id number] [address] [facility] [place] [address] * TYPE AND SCREEN (04/01/2019 6:09 AM CDT) ABO GROUP O 04/01/2019 6:09 AM CDT [facility] -- [facility] RH (D) TYPE Positive 04/01/2019 6:09 AM CDT [facility] -- [facility] ANTIBODY SCREEN Negative 04/01/2019 6:09 AM CDT [facility] -- [facility] Blood Venipuncture / Unknown 04/01/2019 6:09 AM CDT 04/01/2019 6:21 AM CDT Terrie Baca MD BLOOD BANK ORDERAB LES [facility] CL[facility] [id number] [address] [place] [address] documented in this encounter Visit Diagnoses Diagnosis RLTCS 04/01- Primary delivery, without mention of indication, unspecified as to episode of care RLTCS 04/01 delivery, without mention of indication, unspecified as to episode of care documented in this encounter Administered Medications Inactive [...] at 0645, Routine, Antibiotic Indication: Surgical prophylaxis New Bag 04/01/2019 7:43 AM CDT 2,000 mg 200 mL/hr flu vaccine quadrivalent 6mos up(PF) (FLUARIX QUAD,FLULAVAL QUAD,FLUZONE QUAD) 60 mcg (15 mcg x 4)/0.5 mL syringe 60 mcg 60 mcg (0.5 mL), IM, ONE TIME ONLY, 1 dose, On Mon04/03/19 at 1200, Routine Given 04/03/2019 12:31 PM CDT 60 mcg Arm, Left Upper hydrOXYzine HCl (ATARAX) tablet 25 mg 25 [...] Given 04/02/2019 8:04 PM CDT 600 mg lactated ringers infusion IV, at 125 mL/hr, PRE-PROCEDURE CONTINUOUS, Starting on Mon04/01/19 at 0600, Until Mon04/01/19 at 1231, Routine, Pre-op Continue from Pre-Op 04/01/2019 7:47 AM CDT New Bag 04/01/2019 7:16 AM CDT 125 mL/hr meperidine 5 mg/ml epidural 2 mL/hr, Epidural, CONTINUOUS, Starting on Mon04/01/19 at 0730, Until Mon04/01/19 at 1156, Stat New Bag 04/01/2019 8:29 AM CDT 2 mL/hr 2 mL/hr meperidine 5 mg/ml epidural 2 mL/hr, Epidural, CONTINUOUS, Starting on Mon04/01/19 at 1200, Until Mon04/02/19 at 1236, Stat New Bag 04/02/2019 6:45 AM CDT 2 mL/hr 2 mL/hr methylergonovine maleate (METHERGINE) [...] Mercedes RN)1501 (Given - Provider: Lidia Mercedes RN)2000 (Given - Provider: Pina Montemayor RN) 0200 (Given - Provider: Pina Montemayor, ATTILA)0855 (Given - Provider: Millie Vargas, ATTILA)1440 (Given - Provider: Millie Vargas, ATTILA)2004 (Given - Provider: Pina Montemayor, ATTILA) 0206 (Given - Provider: Pina Montemayor, ATTILA)0812 (Given - Provider: Millie Vargas, ATTILA) ceFAZolin (ANCEF) 2,000 mg in dextrose (iso-osmotic) 100 mL IVPB (PREMIX) (COMPLETED) 2,000 mg, IV, ONE TIME ONLY, 1 dose, On Mon04/01/19 at 0645, Routine, Antibiotic Indication: Surgical prophylaxis 0743 (New Bag - Provider: Terrie Rey, ATTILA)0813 (Stopped - Provider: Terrie Rey RN) fentaNYL PF (SUBLIMAZE) 15 mcg/0.3 mL syringe 15 mcg (COMPLETED) 15 mcg, See Admin Instructions, INTRA-PROCEDURE ONCE, 1 dose, Starting on Mon04/01/19 at 0706, Until Mon04/01/19 at 0752, Routine 0752 (Given - Provider: Claudette Devi CRNA) flu vaccine quadrivalent 2018- 6mos up(PF) (FLUARIX QUAD,FLULAVAL QUAD,FLUZONE QUAD) 60 mcg (15 mcg x 4)/0.5 mL syringe 60 mcg (COMPLETED) 60 mcg (0.5 mL), IM, ONE TIME ONLY, 1 dose, On Mon04/03/19 at 1200, Routine 1231 (Given - Provider: Millie Vargas, ATTILA) ibuprofen (MOTRIN) tablet 600 mg 600 mg, Oral, EVERY 6 HOURS, 16 doses, First dose on Mon04/01/19 at 1445, Last dose on Mon04/05/19 at 0900, Routine 1445 (Refused - Provider: Lidia Mercedes RN)1501 (Given - Provider: Lidia Mercedes RN)2000 (Given - Provider: Pina Montemayor, ATTILA) 0200 (Given - Provider: Pina Montemayor, ATTILA)0855 (Given - Provider: Millie Vargas RN)1440 (Given - Provider: Millie Vargas RN)2003 (Given - Provider: Pina Montemayor, ATTILA) 0206 (Given - Provider: Pina Montemayor, ATTILA)0812 (Given [...] Montemayor, ATTILA) 2003 (Given - Provider: Pina Montemayor, ATTILA) Continuous Medication Order 04/01/2019 04/02/2019 04/03/2019 lactated [...] Millie Vargas RN)1722 (Given - Provider: Millie Vargas RN)2133 (Given - Provider: Pina Montemayor RN) 0218 (Given - Provider: Pina Montemayor RN)0812 (Given - Provider: Millie Vargas RN)1212 (Given - Provider: Millie Vargas RN) oxyCODONE (ROXICODONE) tablet 5 mg 5 [...] 1238, Until Mon04/03/19 at 1509, Insomnia, Routine 0210 (Given - Provid er: Pina Montemayor RN) documented in this encounter Care Teams Planer Operator Relationship Specialty Start Date End Date Terrie Baca MD PCP - General Obstetrics and Gynecology 05/27/13 documented as of this encounter
--- OUTSIDE RECORDS SUMMARY | 2024-05-27 15:11 | XMS_ITS | Encounter Summary ---
Author Organization [facility] Address [address] [place] [address] Care Team Providers Care Sock Lining Examiner Name Role Phone Terrie Baca MD Primary Care Provider [phone]- [phone] Reason for Visit * Reason Comments Routine Visit Encounter Details Date Type Department Care Team (Late st Contact Info) Description 03/20/2019 10:20 AM CDT visit [facility] REPORTS ANALYST - Medical [address] [address] Terrie Baca MD [facility] [address] [place] [address] Trisomy 18 of fetus in current , fetus 1 of multiple gestation (Primary Dx); 34 weeks gestation of Social History Tobacco Use [...] Sign Reading Time Taken Comments Blood Pressure 114/72 03/20/2019 10:24 AM CDT Pulse - - Temperature - - Respiratory Rate - - Oxygen Saturation - - Inhaled Oxygen Concentration - - Weight 81 kg (178 lb 9.6 oz) 03/20/2019 10:24 AM CDT Height - - Body Mass Index 25.26 03/01/2019 5:07 PM CDT documented in this encounter Progress Notes * Terrie Baca MD - 03/20/2019 10:38 AM CDT 30-35 Weeks LOUIE SUBJECTIVE: Reports +FM; no LOF, VB, regular UCs. U/S shows growth in <2%. OBJECTIVE: See flowsheet. ASSESSMENT: 33 y.o. at 34w4d wks PLAN: NICU consult today. C/S scheduled at 36 wks. Routine care RTC 2 wks. Pt to call/come with further questions/concerns. Terrie Baca MD documented in this encounter Plan of Treatment Upcoming Encounters Date Type Department Care Team (Late st Contact Info) Description 10/08/2024 9:45 AM CDT Office Visit [facility] REPORTS ANALYST - [facility] [address] [place] [address] Terrie Baca MD [address] [facility] [address] [place] [address] documented as of this encounter Visit Diagnoses Diagnosis Trisomy 18 of fetus in current , fetus 1 of multiple gestation- Primary 34 weeks gestation of state, incidental documented in this encounter Care Teams Sock Lining Examiner Relationship Specialty Start Date End Date Terrie Baca MD PCP - General Obstetrics and Gynecology 05/27/13 documented as of this encounter
--- OUTSIDE RECORDS SUMMARY | 2024-05-27 15:11 | XMS_ITS | Encounter Summary ---
Author Organization [facility] Address [address] [place] [address] Care Team Providers Care Powder Shoveler Name Role Phone Terrie Manning MD Primary Care Provider +1- [phone] Encounter Details Date Type Department Care Team (Latest Contact Info) Description 08/20/2017 2:00 PM CDT - 08/20/2017 11:59 PM CDT Hospital Encounter [facility] OB Inductions and Procedures [address] [place] [id number] Discharge Disposition: Home or Self Care Social [...] Capsule Take by mouth daily. 018 Vit 58-Hapi-ZH-DSS (ADVANCED ) 90-1-50 mg Tablet Take 1 Tablet by mouth daily. 03/06/2019 documented as of this encounter Plan of Treatment Upcoming Encounters Date Type Department Care Team (Late st Contact Info) Description 10/08/2024 9:45 AM CDT Office Visit [facility] CORE PILER - Medical [address] [address] Terrie Manning MD [facility] [address] [place] [address] documented as of this encounter Visit Diagnoses Not on filedocumented in this encounter Care Teams Powder Shoveler Relationship Specialty Start Date End Date Terrie Manning MD PCP - General Obstetrics and Gynecology 05/27/13 documented as of this encounter
--- OUTSIDE RECORDS SUMMARY | 2024-05-27 15:11 | XMS_ITS | Encounter Summary ---
Author Organization [facility] Address [address] [place] [address] Care Team Providers Care Data Security Coordinator Name Role Phone Terrie Manning MD Primary Care Provider +1- [phone] Encounter Details Date Type Department Care Team (Latest Contact Info) Description 03/20/2019 9:30 AM CDT Ancillary Procedure [facility] PROGRAMMING SPECIALIST - [facility] [address] [place] [address] Encounter for ultrasound to check growth; Trisomy 18 of fetus in current , single or unspecified fetus Social History Tobacco Use Types Packs/Day Years [...] Description 10/08/2024 9:45 AM CDT Office Visit [facility] PROGRAMMING SPECIALIST - [facility] A [address] [place] [address] Terrie Manning MD [address] [place] [address] [address] [place] [address] documented as of this encounter Procedures Procedure Name Priority Date/Time Associated Diagnosis Comments US OB FOLLOW UP PER FETUS Routine 03/20/2019 9:57 AM CDT Encounter for ultrasound to check growth Trisomy 18 of fetus in current , single or unspecified fetus documented in this encounter Results * US OB FOLLOW UP PER FETUS (03/20/2019 9:57 AM CDT) Anatomical Region Laterality Modality Pelvis Ultrasound Study GA Study Date Study LEXIE Working LEXIE (Source) Feta l Weight (Method) 03/20/2019 04/27/2019 (Ultrasound) Result Name Value Comments BPD (Hadlock) cm HC (Hadlock) cm AC (Hadlock) cm FL (Hadlock) cm Humerus Length cm Cerebellum cm Nuchal Fold mm HC/AC Impressions 03/20/2019 12:02 PM CDT Gestational age: 34w4d Anatomy scan: Known Trisomy 18. 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
--- OUTSIDE RECORDS SUMMARY | 2024-05-27 15:11 | XMS_ITS | Encounter Summary ---
Author Organization [facility] Address [address] [place] [address] Care Team Providers Care Regulator Tester Name Role Phone Terrie Manning MD Primary Care Provider +1- [phone] Reason for Visit * Reason Comments Medication Refill Encounter Details Date Type Department Care Team (Late st Contact Info) Description 04/11/2019 Refill [facility] MARKETING PROFESSOR - Medical [address] [address] Terrie Manning MD [facility] [address] [place] [address] Insomnia, unspecified type (Primary Dx) Social History Tobacco Use Types [...] * Telephone Encounter - Mariann Martin - 04/12/2019 9:29 AM CST Approved and sent. Constantino per KDL. ILE TESTER documented in this encounter Plan of Treatment Upcoming Encounters Date Type Department Care Team (Late st Contact Info) Description 10/08/2024 9:45 AM CDT Office Visit [facility] MARKETING PROFESSOR - [place] [address] [address] Terrie Manning MD [address] [place] [address] documented as of this encounter Visit Diagnoses Diagnosis Insomnia, unspecified type- Primary documented in this encounter Care Teams Regulator Tester Relationship Specialty Start Date End Date Terrie Manning MD PCP - General Obstetrics and Gynecology 05/27/13 documented as of this encounter
--- OUTSIDE RECORDS SUMMARY | 2024-05-27 15:11 | XMS_ITS | Encounter Summary ---
Author Organization [facility] Address [address] [place] [address] Care Team Providers Care Automatic Toe Laster Name Role Phone Terrie Manning MD Primary Care Provider +1- [phone] Reason for Visit * Reason Comments Initial Visit Encounter Details Date Type Department Care Team (Late st Contact Info) Description 09/10/2018 Initial [facility] ABSTRACTION Jackelyn Maciel, [place] [address] [address] Encounter for supervision of other normal , first trimester (Primary Dx); Encounter for screening; 7 weeks gestation of ; Subchorionic hemorrhage of placenta in first trimester, single or unspecified fetus Social History Tobacco [...] Reading Time Taken Comments Blood Pressure 106/70 03/01/2019 5:07 PM CDT Pulse - - Temperature - - Respiratory Rate - - Oxygen Saturation - - Inhaled Oxygen Concentration - - Weight 71.4 kg (157 lb 6.4 oz) 03/01/2019 5:07 P M CDT Height 179.1 cm (5' 10.5 ) 03/01/2019 5:07 PM CD T Body Mass Index 22.27 03/01/2019 5:07 PM CDT documented in this encounter Plan of Treatment Upcoming Encounters Date Type Department Care Team (Late st Contact Info) Description 10/08/2024 9:45 AM CDT Office Visit [facility] CO FOUNDER & CEO - Medical [address] [address] Terrie Manning MD [facility] [address] [place] [address] documented as of this encounter Visit Diagnoses Diagnosis Encounter for supervision of other normal , first trimester- Primary Encounter for screening 7 weeks gestation of Subchorionic hemorrhage of placenta in first trimester, single or unspecified fetus documented in this encounter Care Teams Automatic Toe Laster Relationship Specialty Start Date End Date Terrie Manning MD PCP - General Obstetrics and Gynecology 05/27/13 documented as of this encounter
--- OUTSIDE RECORDS SUMMARY | 2024-05-27 15:11 | XMS_ITS | Encounter Summary ---
Author Organization [facility] Address [address] [place] [address] Care Team Providers Care Pin Sticker Name Role Phone Terrie Manning MD Primary Care Provider +1- [phone] Reason for Visit * Reason Onset Date Comments KDL\[place] 03/11/2019 Encounter Details Date Type Department Care Team (Late st Contact Info) Description 03/11/[address] [facility] HEAD OF GLOBAL STRATEGIC PARTNERSHIPS - Medical [address] [address] Terrie Manning MD [address] [place] [address] KDL\[place] Social History Tobacco Use Types Packs/Day Years [...] as of this encounter Miscellaneous Notes * Addendum Note - Mariann Martin - 03/11/2019 4:27 PM CDTAddended by: MARIANN MARTIN on: 03/11/2019 04:27 PM Modules accepted: Orders * Telephone Encounter - Mraiann Martin - 03/11/2019 4:26 PM CDT Pt called to have her Zoloft sent to [facility] in [facility]. RX sent to the pharmacy on file. Ab# * Telephone Encounter - Mariann Martin - 03/11/2019 3:27 PM CDT Called [facility] back and let them know they can use another generic PNV w/ DHA. Pharmacist aware and will get the RX ready. Ab# * Telephone Encounter - Karyn Macedo - 03/11/2019 12:21 PM CDT Eusebio from [facility] called and lm on vm that they are not able to find the PNV script and want to know ifthey can fill with a substitute. Please call them back at [phone]. cjk documented in this encounter Plan of Treatment Upcoming Encounters Date Type Department Care Team (Late st Contact Info) Description 10/08/2024 9:45 AM CDT Office Visit [facility] HEAD OF GLOBAL STRATEGIC PARTNERSHIPS - Medical [facility] [address] [address] Terrie Manning MD [address] [facility] [address] [place] [address] documented as of this encounter Visit Diagnoses Not on filedocumented in this encounter Care Teams Pin Sticker Relationship Specialty Start Date End Date Terrie Manning MD PCP - General Obstetrics and Gynecology 05/27/13 documented as of this encounter
--- OUTSIDE RECORDS SUMMARY | 2024-05-27 15:11 | XMS_ITS | Encounter Summary ---
Author Organization [facility] Address [address] [place] [address] Care Team Providers Care Human Resources Support Specialist Name Role Phone Terrie Manning MD Primary Care Provider +1- [phone] Reason for Visit * Reason Comments Routine Visit Encounter Details Date Type Department Care Team (Late st Contact Info) Description 02/20/2019 visit [facility] ABSTRACTION Terrie Manning MD [address] [place] [address] Trisomy 18 of fetus in current , single or unspecified fetus (Primary Dx); 30 weeks gestation of Social History Tobacco Use [...] Sign Reading Time Taken Comments Blood Pressure 120/82 02/20/2019 10:30 AM CDT Pulse - - Temperature - - Respiratory Rate - - Oxygen Saturation - - Inhaled Oxygen Concentration - - Weight 77.7 kg (171 lb 3.2 oz) 02/20/2019 10:30 AM CDT Height - - Body Mass Index 23.88 12/27/2018 8:55 AM CDT documented in this encounter Plan of Treatment Upcoming Encounters Date Type Department Care Team (Late st Contact Info) Description 10/08/2024 9:45 AM CDT Office Visit [facility] TOWER FOREMAN - [facility] [address] [address] Terrie Manning MD [facility] [address] [place] [address] documented as of this encounter Visit Diagnoses Diagnosis Trisomy 18 of fetus in current , single or unspecified fetus- Primary 30 weeks gestation of state, incidental documented in this encounter Care Teams Human Resources Support Specialist Relationship Specialty Start Date End Date Terrie Manning MD PCP - General Obstetrics and Gynecology 05/27/13 documented as of this encounter
--- OUTSIDE RECORDS SUMMARY | 2024-05-27 15:11 | XMS_ITS | Encounter Summary ---
Author Organization [facility] Address [address] [place] [address] Care Team Providers Care Asw Specialist Name Role Phone Terrie Manning MD Primary Care Provider +1- [phone] Encounter Details Date Type Department Care Team (Late st Contact Info) Description 08/11/2016 4:17 PM MEDICAL SERVICE REPRESENTATIVE Anesthesia Event [facility] Operating Room [address] [place] [address] Cole Mccray MD [address] [place] [address] Arpit Benson AA-C [address] [place] [address] Anesthesia Record Procedure Summary Procedure Name Responsible Anesthesiologist Anesthesia Start Time Anesthesia Stop Time HYSTEROSCOPY WITH DILATATION AND CURETTAGE SUCTION (Cervix) Cole Mccray MD 08/11/16 1617 08/11/16 1705 Events Date Time Event Comment 08/11/2016 1603 1617 An Start 1617 An Start Data 1619 Pre-Induction Immediate pre- induction anesthetic assessment performed. Vital signs as noted on graphic. 1619 An Induction 1620 An Intubation 1620 AN RSI 1626 Anesthesia Ready 1659 An Extubation Emergence unev entful Awake, spontaneous respirations. Adequate muscle strength demonstrated Adequate tidal volume. Orapharynx suctioned. Extubated with positive pressure ventilation. 1658 an stop data 1705 An Stop Meds Name Total propofol (DIPRIVAN) 10??mg/mL injection 210 mg lidocaine PF (XYLOCAINE MPF) 2% injectio n 5 mL fentaNYL (SUBLIMAZE) PF 50??mcg/mL injec tion 100 mcg midazolam PF (VERSED) 1 mg/mL injection 2 mg succinycholine (ANECTINE) 140 mg/7 mL iv syringe 120 mg rocuronium (ZEMURON) 10 mg/mL 5 mL injec tion 5 mg ceFAZolin (ANCEF) IVPB 2,000 mg 2,000 mg dexamethasone (DECADRON) 4 mg/mL injecti on 8 mg famotidine PF (PEPCID) 20mg/2 mL injecti on 20 mg ondansetron (ZOFRAN) 4??mg/2 mL injectio n 4 mg lactated ringers infusion 2,000 mL * Agents Name Sevoflurane % Sevoflurane O2 Inspired O2 N2O Inspired N2O * Blood No blood administrations on file. Lines, Drains, and Airways Type Details Placement Removal Peripheral IV Pre-Hospital Start: No; Orientation: Left; Location: AC; Device: Angiocath; Gauge: 20 gauge; Needle Length: 1.25 in length; Insertion Attempts: 1 (AA); Removal Indication: no longer indicated, removed per policy 08/11/16 1604 by Delicia Denton RN 08/11/16 1919 by Jackelyn Alvarez RN Endotracheal Airway Type: Oral, ETT; Cuf f Pressure: minimal occluding volume, minimal leak technique; Size: 7; Site: mouth; Attempts: 1; FOV: I; cm: 21; Device: Straight Blade; Blade: 2; Secured: secured with tape; Cricoid: Yes; Verification: Auscultated bilateral breath sounds, Equal chest movement, Continuous waveform capnography 08/11/16 1620 by Arpit Benson AA-C 08/11/16 1659 by Arpit Benson AA-C Adult Incision 08/11/16; 1633; surgical incision; other (comment); vagina; 08/12/16; 0722 08/11/16 1633 by Calista Cruz FNP 08/12/16 0722 by PROVIDER, DISCHARGE PATIENT documented in this [...] on file documented as of this encounter OR Notes * Anesthesia Postprocedure Evaluation - Cole Mccray MD - 08/11/2016 5:11 PM CST Phase I Postanesthesia Evaluation Including Modified Jesus Score Patient seen and evaluated: Modified Jesus Score: Score: 8 (08/11/161704) COMMENTS: No apparent Anesthesia related complications RESPIRATORY FUNCTION: Respiration: able to breath and cough freely (08/11/161704) [2=able to breathe and cough freely, 1=dyspnea, limited breathing or tachypnea, 0=apnea or mechanicventilator] O2 Saturation: needs O2 inhalation to maintain O2 saturation greater than 90% (08/11/161704) [2=able to maintain O2 saturation greater than 92% on room air, 1=needs O2 inhalation to maintain O2 saturation greater than 90%, 0=O2 saturation less than 90% even with O2 supplement] Resp: 20 (08/11/161538)SpO2: 100 % (08/11/161538) CARDIOVASCULAR FUNCTION: BP: 112/64 (08/11/16 153) Circulation: BP within 20% of preanesthetic level (08/11/161704) [2=BP within 20% of preanesthetic level, 1=BP within 20-49% of preanesthetic level, 0=BP within 50%of preanesthetic level] MENTAL STATUS, NEURO, ACTIVITY: PATIENT PARTICIPATION IN EVALUATION:yes Consciousness: arousable on calling (08/11/161704) [2=fully awake, 1=arousable on calling, 0=not responding] Activity: able to move 4 extremities voluntarily or on command (08/11/161704) [2=able to move 4 extremities voluntarily or on command, 1=able to move 2 extremities voluntarily or on command, 0=unable to move extremities voluntarily or on command] TEMPERATURE: Temp: 36.9 ??C (08/11/16 1705) PAIN: NAUSEA AND VOMITING: no nausea and no vomiting POSTOPERATIVE HYDRATION: well hydrated Intake/Output Summary (Last 24 hours) at 08/11/16 1711 Last data filed at 08/11/16 1702 Gross per 24 hour Intake 2000 ml Output 250 ml Net 1750 ml Cole Mccray MD 08/11/2016 5:11 PM Cole Mccray MD CAL SERVICE REPRESENTATIVE * Anesthesia Handoff - Arpit Benson AA-C - 08/11/2016 5:05 PM CST Post-Anesthetic transfer of care report elements to [...] and acknowledgement of understanding. Vital Signs: BP: 112/64 (08/11/2016 3:39 PM) Pulse: 102 (08/11/2016 3:39 PM) Temp: 36.9 ??C (08/11/2016 5:05 PM) Resp: 20 (08/11/2016 3:39 PM) SpO2: 100 % (08/11/2016 3:39 PM) 5:05 PM ROBIN Gray CAL SERVICE REPRESENTATIVE * Anesthesia Preprocedure Evaluation - Cole Mccray MD - 08/11/2016 4:01 PM CST Anesthesia Evaluation Anesthesia Plan ASA 2 - emergent General Oral ETT airway maintenance NPO status waived due to emergency Pre-Anesthesia Evaluation - Long Form 08/11/2016 4:02 PM Name: Angela Alarcon Age: 30 y.o. Sex: female [facility]: [id number] No Known Allergies Prescriptions Prior to Admission Medication Sig Dispense Refill Last Dose ??? progesterone micronized (PROMETRIUM) 100 mg Capsule Take by mouth daily. 08/11/2016 at Unknown time ??? Vit 45-Ityp-PC-DSS (ADVANCED ) 90-1-50 mg Tablet Take 1 Tablet by mouth daily.08/10/2016 at Unknown time ??? dicyclomine (BENTYL) 10 mg capsule Take 1 Cap by mouth 2 times daily before meals. 60 Cap 2 Unknown at Unknown time Current Facility-Administered Medications Medication Dose Route Frequency Provider Last Rate Last Dose ??? ceFAZolin (ANCEF) IVPB 2,000 mg 2,000 mg IV ONCE Dustin Bill MD Patient Active Problem List Diagnosis Date Noted ??? Threatened in first trimester 08/09/2016 Past Medical History Diagnosis Date ??? Abdominal pain ??? Anxiety no meds during ??? 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 Diarrhea 06/03/13 ??? GERD (gastroesophageal reflux disease) ??? IBS (irritable bowel syndrome) Past Surgical History Procedure Laterality Date ??? Pr oral surgery ??? Pr colonoscopy flx dx w/collj spec when pfrmd 06/06/2013 COLONOSCOPY performed by Xavi [facility]ino MD at [facility] ??? Pr esophagogastroduodenoscopy transoral diagnostic 06/06/2013 ESOPHAGOGASTRODUODENOSCOPY performed by Xavi Aquino MD at [facility] ??? Hx wisdom teeth extraction Social History Substance Use Topics ??? Smoking status: Never Smoker ??? Smokeless tobacco: Not on file ??? Alcohol use No Family History Problem Relation Age of Onset ??? Colon Polyps Maternal Grandmother Previous Anesthesia Problems/Concerns: No anesthesia problems/complications History of PONV No Review of Systems Cardiovascular: negative Respiratory: negative Gastroenterology: negative Missed ab with continued bleeding PHYSICAL EXAM Visit Vitals ??? BP 112/64 (Patient Position (BP): Sitting) ??? Pulse (!) 102 ??? Temp 36.8 ??C (Temporal) ??? Resp 20 ??? Wt 68 kg (150 lb) ??? SpO2 100% ??? BMI 20.92 kg/m2 Weight: Weight: 68 kg (150 lb) (08/11/16 1600) Height: Ht Readings from Last 1 Encounters: 08/09/16 5' 11 (1.803 m) BMI: Body mass index is 20.92 kg/(m^2). Airway: normal range of motion: Airway Class:I ; None Lungs: clear to auscultation bilaterally, normal respiratory effort Heart: regular rate and rhythm, S1, S2 normal, no murmur, click, rub or gallop Neuro: alert, oriented x 3, no defects noted in general exam. Vascular Access: Peripheral Line LABS Lab Results Component Value Date/Time WBC 6.0 06/26/2012 06:00 PM HEMOGLOBIN 12.3 06/26/2012 06:00 PM HEMATOCRIT 38.0 06/26/2012 06:00 PM PLATELETS 372 06/26/2012 06:00 PM MCV 92.3 06/26/2012 06:00 PM No results found for: NA, K, CL, CO2, CA, BUN, CREAT, GLUCOSE, ANIONGAP, BCRATIO No results found for: INR, PT, PROTIMEPOC No results found for: HCGURPOC, HCGQUALUR, HCGQUAL, HCGQUANT, HCGINTACT No results found for: GLUCPOC EKG: none indicated today Other Studies/Considerations: None Postop pain management discussed yes Smoking/Tobacco Counseling: None Recommendations: None ASA Physical Status: ASA 2 - Patient with mild systemic disease with no functional limitations or E- Emergency Circumstances I have seen and examined this patient and confirm that all data is current and accurate. Yes Choice of Anesthesia/Anesthesia Plan: Proceed and General I have discussed the anesthetic options and the risks/benefits with the patient/family. Questions have been solicited and answered. Yes Cole Mccray MD CAL SERVICE REPRESENTATIVE documented in this encounter Plan of Treatment Upcoming Encounters Date Type Department Care Team (Late st Contact Info) Description 10/08/2024 9:45 AM CDT Office Visit [facility] PULP DRIER FIRER - [facility] [address] [address] Terrie Manning MD [address] [facility] [address] [address] documented as of this encounter Visit Diagnoses Not on filedocumented in this encounter Administered Medications Inactive Administered Medications - up to 3 most recent administrations Medication Order MAR Action Action Date Dose Rate Site ceFAZolin (ANCEF) IVPB 2,000 mg 2,000 mg, IV, ONE TIME ONLY, 1 dose, On Shaila 08/11/16 at 1600, Routine, Antibiotic Indication: Surgical prophylaxis Given 08/11/2016 4:25 PM MEDICAL SERVICE REPRESENTATIVE 2,000 mg dexamethasone (DECADRON) injection INTRA-PROCEDURE PRN, Starting on Shaila 08/11/16 at 1630, Until Shaila 08/11/16 at 1705, Routine, Anesthesia Intra-op Given 08/11/2016 4:30 PM MEDICAL SERVICE REPRESENTATIVE 8 mg famotidine PF (PEPCID) 20 mg/2 mL injection INTRA-PROCEDURE PRN, Starting on Shaila 08/11/16 at 1630, Until Shaila 08/11/16 at 1705, Routine, Anesthesia Intra-op Given 08/11/2016 4:30 PM MEDICAL SERVICE REPRESENTATIVE 20 mg fentaNYL PF (SUBLIMAZE) 50 mcg/mL injection INTRA-PROCEDURE PRN, Starting on Shaila 08/11/16 at 1630, Until Shaila 08/11/16 at 1705, Pain (See admin instructions), Routine, Anesthesia Intra-op Given 08/11/2016 4:35 PM MEDICAL SERVICE REPRESENTATIVE 25 mcg Given 08/11/2016 4:30 PM MEDICAL SERVICE REPRESENTATIVE 25 mcg Given 08/11/2016 4:19 PM MEDICAL SERVICE REPRESENTATIVE 50 mcg lactated ringers solution INTRA-PROCEDURE CONTINUOUS PRN, Starting on Shaila 08/11/16 at 1600, Until Shaila 08/11/16 at 1705, Routine, Anesthesia Intra-op New Bag 08/11/2016 5:02 PM MEDICAL SERVICE REPRESENTATIVE New Bag 08/11/2016 4:45 PM MEDICAL SERVICE REPRESENTATIVE New Bag 08/11/2016 4:00 PM MEDICAL SERVICE REPRESENTATIVE lidocaine PF 2 % (XYLOCAINE MPF) injection INTRA-PROCEDURE PRN, Starting on Shaila 08/11/16 at 1619, Until Shaila 08/11/16 at 1705, Other (See Comment), Routine, Anesthesia Intra-op Given 08/11/2016 4:19 PM MEDICAL SERVICE REPRESENTATIVE 5 mL midazolam (PF) (VERSED) 1 mg/mL injection INTRA-PROCEDURE PRN, Starting on Shaila 08/11/16 at 1615, Until Shaila 08/11/16 at 1705, Routine, Anesthesia Intra-op Given 08/11/2016 4:15 PM MEDICAL SERVICE REPRESENTATIVE 2 mg ondansetron (ZOFRAN) 4 mg/2 mL injection INTRA-PROCEDURE PRN, Starting on Shaila 08/11/16 at 1630, Until Shaila 08/11/16 at 1705, Nausea/Emesis, Routine, Anesthesia Intra-op Given 08/11/2016 4:30 PM MEDICAL SERVICE REPRESENTATIVE 4 mg propofol (DIPRIVAN) injection INTRA-PROCEDURE PRN, Starting on Shaila 08/11/16 at 1630, Until Shaila 08/11/16 at 1705, Anesthesia Intra-op Given 08/11/2016 4:30 PM MEDICAL SERVICE REPRESENTATIVE 40 mg Given 08/11/2016 4:19 PM MEDICAL SERVICE REPRESENTATIVE 170 mg rocuronium (ZEMURON) injection INTRA-PROCEDURE PRN, Starting on Shaila 08/11/16 at 1619, Until Shaila 08/11/16 at 1705, Routine, Anesthesia Intra-op Given 08/11/2016 4:19 PM MEDICAL SERVICE REPRESENTATIVE 5 mg succinylcholine Chloride (ANECTINE) 140 mg/7 mL (20 mg/mL) injection INTRA-PROCEDURE PRN, Starting on Shaila 08/11/16 at 1619, Until Shaila 08/11/16 at 1705, Routine, Anesthesia Intra-op Given 08/11/2016 4:19 PM MEDICAL SERVICE REPRESENTATIVE 120 mg documented in this encounter Care Teams Asw Specialist Relationship Specialty Start Date End Date Terrie Manning MD PCP - General Obstetrics and Gynecology 05/27/13 documented as of this encounter
--- OUTSIDE RECORDS SUMMARY | 2024-05-27 15:11 | XMS_ITS | Encounter Summary ---
Author Organization [facility] Address [address] [place] [address] Care Team Providers Care Trauma Surgeon Name Role Phone Bebeto Manning MD Primary Care Provider [phone]- [phone] Reason for Referral * Radiology Services (Routine) - Closed Specialty Diagnoses / Procedures Referred By Contac t Referred To Contact Diagnoses Abnormal ultrasound Procedures US GUIDE AMNIOCENTESIS Mj Ha DO NO ADDRESS ON FILE Referral ID Status Reason Start Date Expiration Date V isits Requested Visits Authorized [id number] Closed [facility] 12/26/2018 01/26/2019 1 1 Reason for Visit * Radiology Services (Routine) - Closed Specialty Diagnoses / Procedures Referred By Cheikh pichardo Referred To Contact Diagnoses Abnormal ultrasound Procedures US GUIDE AMNIOCENTESIS Mj Ha DO NO ADDRESS ON FILE Referral ID Status Reason Start Date Expiration Date V isits Requested Visits Authorized [id number] Closed [facility] 12/26/2018 01/26/2019 1 1 Encounter Details Date Type Department Care Team (Latest Contact Info) Description 12/27/2018 7:35 AM CDT - 12/27/2018 11:59 PM CDT Hospital Encounter [facility] [address] [place] [id number] Mj Ha DO NO ADDRESS ON FILE Discharge Disposition: Home or Self Care Social [...] Sign Reading Time Taken Comments Blood Pressure 116/67 12/27/2018 8:51 AM CDT Pulse 85 12/27/2018 8:51 AM CDT Temperature 36.3 ??C (97.4 ??F) 12/27/2018 8:51 AM CD T Respiratory Rate - - Oxygen Saturation - - Inhaled Oxygen Concentration - - Weight 72.6 kg (160 lb) 12/27/2018 8:55 AM CDT Height 180.3 cm (5' 11 ) 12/27/2018 8:55 AM CDT Body Mass Index 22.32 12/27/2018 8:55 AM CDT documented in this encounter Discharge Instructions * Discharge Instructions* Odalis Willingham RN - 12/27/2018 8:52 AM CDT Post Amniocentesis Instructions Activity: ??? Rest after your procedure today for 24 hours ??? No lifting ??? No shopping ??? No running up and down stairs ??? No vigorous activities for 48 hours - no exercise or sexual intercourse ??? 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 Things to watch for: ??? Cramping ??? Leaking of amniotic fluid ??? Flu-like feeling (fever) ??? Vaginal bleeding We recommend that you not travel for 24-48 hours after the procedure. IF YOU HAVE ANY QUESTIONS OR CONCERNS, PLEASE CONTACT [facility] AT [phone] OR YOUR OB DOCTOR???S OFFICE. * Attachments The following attachments cannot be sent through Care Everywhere. * : Amniocentesis ([place]) documented in this encounter Medications at Time of Discharge Medication Sig Dispensed Refills Start Date End Date Vit 77-Uijy-SL-DSS (ADVANCED ) 90-1-50 mg Tablet Take 1 Tablet by mouth daily. 03/06/2019 documented as of this encounter Plan of Treatment Upcoming Encounters Date Type Department Care Team (Late st Contact Info) Description 10/08/2024 9:45 AM CDT Office Visit [facility] [employer] - [facility] [address] [address] Bebeto Manning MD [address] [facility] [address] [place] [address] documented as of this encounter Procedures Procedure Name Priority Date/Time Associated Diagnosis Comments US GUIDE AMNIOCENTESIS Routine 9 9:36 AM CDT Abnormal ultrasound documented in this encounter Results * US GUIDE AMNIOCENTESIS (12/27/2018 9:36 AM CDT) Anatomical Region Laterality Modality Pelvis Ultrasound 12/27/2018 8:32 AM CDT Impressions 12/27/2018 10:34 AM CDT IMPRESSION ----- Here today for genetic amniocentesis and genetic counseling 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 After her genetic counseling with genetic counselor Francisco J, she consented to have the genetic amniocentesis. All questions were answered and she was reassured along with her . Time out was performed prior to the procedure. After obtaining consent, abdomen was prepped in the usual sterile technique with Betadine pre-and post heart tones were noted normal amniotic fluid volume. Patient underwent a successful genetic amniocentesis under continuous ultrasound guidance. No complications nor difficulties were encountered. Post heart tones were noted. 30 cc clear yellow amniotic fluid was obtained and sent for analysis: FISH, karyotyping and MicroArray. Post procedure instructions were given she is return if there is any fevers chills abdominal pain. She is to maintain adequate fluid intake along with restricted activity/pelvic rest for the next 48 hours. All questions were answered and she was reassured. Both Ms. Alarcon and her understood. Narrative 12/27/2018 10:34 AM CDT Amniocentesis ----- Pat. Name: INESSA ALARCON Study Date: 12/27/2018 8:32am Pat. NO: [id number] Referring ??: BEEBTO MANNING MD Site: [facility] Phytochemistry Professor: Love Nance : 1985 Age: 33 ----- INDICATION ----- Known or Suspected anomaly ? Bilateral CP cyst, bilateral clubbed feet, Ptyalectasis, abnormal brain, ? abnormal heart Previous ? x1 CODING ----- Diagnosis ? O35.8XX0: Maternal care for suspected abnormality Unspecified Fetus ?O34.21: Maternal care for scar from previous delivery ?Z3A.22: Weeks Gestation of Procedures ?24098: Limited 1 or more - RAMSEY, FHR, position ?53452: Amniocentesis Diagnostic ?00171: guidance amnio (all) HISTORY ----- General History ? Blood group: Rh positive OB History ? 3. Para 1 METHOD ----- Ultrasound-guided transplacental amniocentesis ----- [place] . Number of fetuses: 1. DATING ----- GA by stated dating 22 w + 5 d LEXIE by stated dating : 04/27/2019 Method of dating: Restore dating from previous exam Assigned: Dating performed on 12/26/2018, based on the external assessment Assigned GA 22 w + 5 d Assigned LEXIE: 04/27/2019 GENERAL EVALUATION ----- Cardiac activity present. Placenta anterior, right. Cord vessels 3 vessel cord. Amniotic fluid normal amount. ANATOMY ----- The following structures appear abnormal: Face ?Profile. Abdomen ? Left kidney: pyelectasis 9.2 mm. Extremities / ? Right foot: clubbing. Left foot: clubbing. Skeleton Gender: female. COUNSELING ----- Amniocentesis was accepted by the patient on 12/27/2018. The risk of the amniocentesis was discussed with the patient. Consent form was obtained. Course of the amniocentesis procedure, risk, possible test results and follow-up instructions were discussed. Wants to know gender: yes. PREMEDICATION / ANESTHESIA ----- Premedication / Anesthesia not given. AMNIOCENTESIS ----- Start 9:00 AM. Duration 4 min. Instrument: 22 gauge. Entries uterus: 1. Sample: obtained. Sample amount 30.0 ml. Quality: clear yellow. EVALUATION ----- Post cardiac activity: present, normal. FHR post 155 bpm. Post NST not performed. Post AF assessment not performed. Uncomplicated procedure. IMMEDIATE TREATMENT ----- No treatment. RHESUS PROPHYLAXIS ----- Rh positive. Anti-D prophylaxis not offered. She is Rh positive. FOLLOW-UP ----- She is to return in 4 weeks from the previous study (yesterday-12/26/18) for follow-up ultrasound and further discussion along with management plan depending on the results of the genetic amniocentesis and subsequent ultrasound. She established care with the Care Team yesterday. Thank you for allowing us to partake in your patient's care. Procedure Note Mj Ha DO - 12/27/2018 Amniocentesis ----- Pat. Name:Darya ALARCONcintia Date:12/27/2018 8:32am Pat. NO: [id number] :BEBETO MANNING MD [facility]:Love Nance :1985Age:33 ----- INDICATION ----- Known or Suspected anomaly Bilateral CP cyst,bilateral clubbed feet, Ptyalectasis, abnormal brain, abnormal heart Previous x1 CODING ----- Diagnosis O35.8XX0: Maternal care for suspected fetalabnormality Unspecified Fetus O34.21: Maternal care for scar from previouscesarean delivery Z3A.22: Weeks Gestation of Procedures 69554: Limited 1 or more - RAMSEY, FHR, position 02080: Amniocentesis Diagnostic 96472: US guidance amnio (all) HISTORY ----- General History Blood group: Rh positive OB History 3. Para 1 METHOD ----- Ultrasound-guided transplacental amniocentesis ----- [place] . Number of fetuses: 1. DATING ----- GA by stated dating 22 w + 5 d LEXIE by stated dating :04/27/2019 Method of dating:Restore dating from previous exam Assigned:Dating performed on 12/26/2018, based on the externalassessment Assigned GA22 w + 5 d Assigned LEXIE:04/27/2019 GENERAL EVALUATION ----- Cardiac activity present. Placenta anterior, right. Cord vessels 3 vessel cord. Amniotic fluid normal amount. ANATOMY ----- The following structures appear abnormal: Face Profile. Abdomen Left kidney: pyelectasis 9.2 mm. Extremities / Right foot: clubbing. Left foot: clubbing. Skeleton Gender: female. COUNSELING ----- Amniocentesis was accepted by the patient on 12/27/2018. The risk of theamniocentesis was discussed with the patient. Consent form was obtained. Course of the amniocentesis procedure, risk, possibletest results and follow-up instructions were discussed. Wants to know gender: yes. PREMEDICATION / ANESTHESIA ----- Premedication / Anesthesia not given. AMNIOCENTESIS ----- Start 9:00 AM. Duration 4 min. Instrument: 22 gauge. Entries uterus: 1. Sample: obtained. Sample amount 30.0 ml. Quality: clear yellow. EVALUATION ----- Post cardiac activity: present, normal. FHR post 155 bpm. Post NST not performed. Post AF assessment not performed. Uncomplicated procedure. IMMEDIATE TREATMENT ----- No treatment. RHESUS PROPHYLAXIS ----- Rh positive. Anti-D prophylaxis not offered. She is Rh positive. FOLLOW-UP ----- She is to return in 4 weeks from the previous study (yesterday-12/26/18)for follow-up ultrasound and further discussion along with management plan depending on the results of the genetic amniocentesisand subsequent ultrasound. She established care with the Care Team yesterday. Thank you for allowing us to partake in your patient's care. 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 After her genetic counseling with genetic counselor Francisco J, she consentedto have the genetic amniocentesis. All questions were answered and she was reassured along with her . Time out was performed prior to the procedure. After obtaining consent, abdomen was prepped in the usual steriletechnique with Betadine pre-and post heart tones were noted normal amniotic fluid volume. Patient underwent a successful geneticamniocentesis under continuous ultrasound guidance. No complications nor difficulties were encountered. Post heart tones were noted. 30 cc clear yellow amniotic fluid was obtained and sent for analysis:FISH, karyotyping and MicroArray. Post procedure instructions were given she is return if there is anyfevers chills abdominal pain. She is to maintain adequate fluid intake along with restricted activity/pelvic rest for the next 48hours. All questions were answered and she was reassured. Both Ms. Alarcon and her understood. Mj Ha DO US ORDERABLES documented in this encounter Visit Diagnoses Diagnosis Abnormal ultrasound Other nonspecific (abnormal) findings on radiological and other examinations of body structure documented in this encounter Care Teams Trauma Surgeon Relationship Specialty Start Date End Date Bebeto Manning MD PCP - General Obstetrics and Gynecology 05/27/13 documented as of this encounter
--- OUTSIDE RECORDS SUMMARY | 2024-05-27 15:11 | XMS_ITS | Encounter Summary ---
Author Organization [facility] Address [address] [place] [address] Care Team Providers Care Clinical Services Manager Name Role Phone Terrie Manning MD Primary Care Provider [phone]- [phone] Reason for Visit * Eval and Treat (Routine) - Closed Specialty Diagnoses / Procedures Referred By Cheikh pichardo Referred To Contact Genetics Diagnoses Suspected damage to fetus from disease in mother, antepartum condition, single or unspecified fetus Mj Ha DO NO ADDRESS ON FILE Referral ID Status Reason Start Date Expiration Date Visits Requested Visits Authorized [id number] Closed Performing Department To Schedule (STL) 12/27/2018 12/28/2019 1 1 Encounter Details Date Type Department Care Team (Latest Contact Info) Description 12/27/2018 7:30 AM CDT - 12/27/2018 11:59 PM CDT Hospital Encounter [facility] [address] [place] [address] Mj Ha DO NO ADDRESS ON FILE Francisco J Cook CGC [id number] [facility] [address] [place] [address] Discharge Disposition: Home or Self Care Social [...] Dispensed Refills Start Date End Date Vit 39-Jkyy-DD-DSS (ADVANCED ) 90-1-50 mg Tablet Take 1 Tablet by mouth daily. 03/06/2019 documented as of this encounter Consult Notes * Francisco J Cook CGC - 12/27/2018 7:45 AM CDT Genetic Counseling: Ms. Alarcon is a 33 year old comes in at 22w5d gestation with EDC of 04/27/2019. She is referred for genetic counseling due to abnormal ultrasound and for amniocentesis consenting. Specifically, Ms. Alarcon's ultrasound showed evidence of bilateral choroid plexus cysts, club foot, ptyalectasis, IUGR, clenched hands, heart defects, and brain anomalies. She was accompanied by her /FOB at today's appointment. The following is a summary of our discussion. Discussion: Based on the ultrasound findings, we discussed that when these anomalies are seen in combination, this raises suspicion for the to be affected by a chromosomal abnormality. We broadly discussed without diagnostic testing, we cannot determine a specific chromosomal abnormality based on theultrasound findings. However, we discussed that we these specific findings, we are most suspicious for the to be affected by Trisomy 18 or Triploidy. We did review the common signs and symptoms of Trisomy 18 and Triploidy including structural differences of the body, developmental concerns, and the life limiting nature of the condition. We reviewed the natural history of both of these conditions throughout the course of the and after . Additionally, reviewed that the reviewed signs and symptoms are difficult to determine prior to , as chromosomal abnormalities range on a spectrum of mild to severe and will be dependent on what is seen in the remaining course of the . We did review diagnostic testing, in the case of the amniocentesis scheduled. We did discuss the risks, benefits, and limitations of cytogenetic analysis via amniocentesis. Ms. Alarcon understands there is a slight risk for miscarriage with an amniocentesis(1/400 or 0.25%) along with a risk for bleeding or spotting, leakage of the amniotic fluid, cramping or fever. The risk for infection from a diagnostic procedure is less that 1/1,000. Cytogenetic results from amniocentesis are greater than 99% accurate. We discussed that we will be doing a FISH Analysis, Karyotype, and Chromosomal Microarray. We reviewed FISH can provide preliminary evidence if there are chromosomal abnormalities with the usage of probes, with a 98% detection. A Karyotype will provide a full picture of the chromosomes, indicating the number and location of the chromosomes. Chromosomal Microarra will provide further evidence if there are any microdeletions or microduplications seen in the chromosomes. Ms. Alarcon andher expressed understanding of everything we discussed in terms of possible chromosomal abnormalities and genetic testing. Ms. Alarcon then followed with consenting for the amniocentesis. Plan: Discussed with Ms. Alarcon, we will receive FISH Analysis results in about 24-48 hours and results of the the Karyotype and Chromosomal Microarray in about 2 weeks. I will call her with these resultsas they come in. Please, contact me with any further questions or concerns. Approximately 25 minutes were spent in direct face to face counseling and obtaining of the family medical history. documented in this encounter Plan of Treatment Upcoming Encounters Date Type Department Care Team (Late st Contact Info) Description 10/08/2024 9:45 AM CDT Office Visit [facility] KEEPER - Medical [address] [address] Terrie Manning MD [address] [facility] [address] [place] [address] Scheduled Referrals Name Type Priority Associated Diagnoses Orde r Schedule AMB REFERRAL TO GENETIC COUNSELING Outpatient Referral Routine Suspected damage to fetus from disease in mother, antepartum condition, single or unspecified fetus Ordered: 12/27/2018 documented as of this encounter Visit Diagnoses Not on filedocumented in this encounter Care Teams Clinical Services Manager Relationship Specialty Start Date End Date Terrie Manning MD PCP - General Obstetrics and Gynecology 05/27/13 documented as of this encounter
--- OUTSIDE RECORDS SUMMARY | 2024-05-27 15:11 | XMS_ITS | Encounter Summary ---
Author Organization [facility] Address [address] [place] [address] Care Team Providers Care In Home Baby Sitter Name Role Phone Terrie Manning MD Primary Care Provider +1- [phone] Encounter Details Date Type Department Care Team (Latest Contact Info) Description 08/11/2016 3:44 PM ENERGY SALES BROKER - 08/11/2016 7:15 PM [facility] Hospital Encounter [facility] Amb[facility] S [facility] [address] [place] [address] Dustin Bill MD [address] [facility] [address] [address] Discharge Disposition: Home or Self [...] Sign Reading Time Taken Comments Blood Pressure 113/64 08/11/2016 6:44 PM ENERGY SALES BROKER Pulse 110 08/11/2016 6:44 PM ENERGY SALES BROKER Temperature 36.2 ??C (97.2 ??F) 08/11/2016 6:44 PM CS T Respiratory Rate 16 08/11/2016 6:44 PM ENERGY SALES BROKER Oxygen Saturation 99% 08/11/2016 6:44 PM ENERGY SALES BROKER Inhaled Oxygen Concentration - - Weight 68 kg (150 lb) 08/11/2016 4:00 PM ENERGY SALES BROKER Height - - Body Mass Index 20.92 08/09/2016 6:31 AM ENERGY SALES BROKER documented in this encounter Discharge Instructions * Discharge Instructions* Jackelyn Alvarez RN - 08/11/2016 5:27 PM ENERGY SALES BROKER SAFETY For the next 24 hours, you [...] or come to the Emergency Room at [facility] ([phone]) or the nearest Emergency Room. In an emergency, Call 911. GY SALES BROKER documented in this encounter Medications at Time of Discharge Medication Sig Dispensed Refills Start Date End Date HYDROcodone-acetaminoph en (NORCO) 5-325 mg tablet Take 1 Tablet by mouth every 4 hours as needed for Pain, Moderate. Max Daily Amount: 6 Tablets 15 Tablet 08/11/2016 08/25/2017 progesterone micronized (PROMETRIUM) 100 mg Capsule Take by mouth daily. 018 Vit 37-Cubp-NX-DSS (ADVANCED ) 90-1-50 mg Tablet Take 1 Tablet by mouth daily. 03/06/2019 documented as of this encounter Progress Notes * Shameka Yan RN - 08/11/2016 5:45 PM CST Offered to leave message regarding patient's loss with Hattie Thompson of the [employer] program. Pt gave permission and message was left with Hattie to request follow up. GY SALES BROKER documented in this encounter H&P Notes * [...] IV antibiotic prophylaxis with Ancef. Suction D&C/hysteroscopy GY SALES BROKER documented in this encounter OR Notes * Operative Report - Dustin Bill MD - 08/12/2016 3:25 AM CST [place], [place] [address] Operative Report CSN: [id number] DATE OF SERVICE: 08/11/2016 SURGEON Dustin Bill [...] she does not require RhoGAM. GLJ:MEDQ DID: [id number] Dictated by: Dustin Bill MD * Hilda-OP [...] pain/comfort utilizing verbal/nonverbal pain scales; assess culturalor tenriism indicators attached to pain; administer pain medications as prescribed; utilize non-pharmacologic pain control and comfort measures Expected Outcome: Patient demonstrates and reports adequate pain control Outcome Met: States pain is at a tolerable level. GY SALES BROKER * Operative Report - Dustin Bill MD - 08/11/2016 5:00 PM CST Brief Postoperative Note Angela Alarcon [id number] Pre-operative Diagnosis: Incomplete Post-operative Diagnosis: Same Procedure/Anesthesia: Procedure(s) and Anesthesia Type: * HYSTEROSCOPY WITH DILATATION AND CURETTAGE SUCTION - General Surgeons/Assistants: Surgeon(s) and Role: * Dustin Bill MD - Primary Specimens Removed: products of conception Estimated Blood Loss: 250 cc. 200 in the vagina at the start of the procedure. 50 cc during the procedure. Complications:none Dustin Bill MD GY SALES BROKER documented in this encounter Miscellaneous Notes * Care Plan - Shameka Yan RN - 08/11/2016 5:20 PM CST Potential for pain related to surgical/procedural intervention Interventions: Assess level of pain/comfort utilizing verbal/nonverbal pain scales; assess culturalor tenriism indicators attached to pain; administer pain medications as prescribed; utilize non-pharmacologic pain control and comfort measures Expected Outcome: Patient demonstrates and reports adequate pain control Outcome Met: prn meds available. GY SALES BROKER * Care Plan - Dustin Bill MD [...] as tolerated. Call the exchange for any concerns--[phone] Call the office for an appt in 2-3 weeks [phone] GY SALES BROKER * Care Plan - Delicia Denton RN [...] Patient/Family verbalizes understanding of pre op procedures. GY SALES BROKER documented in this encounter Plan of Treatment Upcoming Encounters Date Type Department Care Team (Late st Contact Info) Description 10/08/2024 9:45 AM CDT Office Visit [facility] IMPORT/EXPORT FREIGHT FORWARDER - Medical [facility] [address] [address] Terrie Manning MD [address] [facility] [address] [address] [place] [address] documented as of this encounter Procedures Procedure Name Priority Date/Time Associated Diagnosis Comments TELEMETRY REPORT 08/12/2016 5:56 PM ENERGY SALES BROKER PATHOLOGY Pathology 08/11/2016 4:33 PM ENERGY SALES BROKER CBC WITHOUT DIFFERENTIAL Stat 08/11/2016 4:03 PM ENERGY SALES BROKER HYSTEROSCOPY WITH DILATATION AND CURETTAGE SUCTION 08/11/2016 3:20 PM ENERGY SALES BROKER Case Notes COMING FROM OFFICE documented in this encounter Results * TELEMETRY REPORT (08/12/2016 5:56 PM ENERGY SALES BROKER) Provider Scanning ECG ORDERABLES * PATHOLOGY (08/11/2016 4:33 PM ENERGY SALES BROKER) CASE REPORT Surgical Pathology Report ? Case: [id number] ? Authorizing Provider: ??Dustin Bill MD ?Collected: ? 08/11/2016 04:33 PM ? Ordering Location: ? [facility] ?Received: ?08/12/2016 06:42 AM ? Operating Room ? Pathologist: ? Monica Calvillo MD ? Specimen: ?Products Of Conception ? 08/15/2016 5:44 PM T [facility] [employer] [facility] - [facility] FINAL DIAGNOSIS Products of conception, hysteroscopy with dilatation and curettage: - Implantation site. - No chorionic villi identified. 08/15/2016 5:44 PM T [facility]OR[facility] IMEN DESCRIPTION Products of conception. 08/15/2016 5:44 PM T [facility] [employer] [facility] OPERATIVE PROCEDURE Hysteroscopy with dilatation and curettage suction. 08/15/2016 5:44 PM T [facility] [employer] [facility] CLINICAL DIAGNOSIS Not provided. 08/15/2016 5:44 PM T [facility] [employer] [facility] GROSS DESCRIPTION The specimen is received in a single container labeled Angela Alarcon, products of conception and consists of two suction traps containing a 5 x 4.8 x 1.5-cm aggregate of red tissue. No hydropic villi are identified. No parts are found. The entire specimen is submitted in cassettes A1 to A5. ALANNA/ale 08/15/2016 5:44 PM CDT [facility] MICROSCOPIC DESCRIPTION The slides are labeled [id number] and Angela Katiejaron. Sections of the products of conception reveal multiple fragments of implantation site and decidua. No chorionic villi are present. Correlation with the quantitative beta hCG is recommended. Slides are shown to Dr. Macdonald, and she concurs with the diagnosis. 08/15/2016 5:44 PM CDT [facility] COMMENT Special stain and/or immunohistochemical results are interpreted with controls that demonstrate appropriate staining reactions. Note on use of immunocytochemistry reagents: This test was developed and its performance characteristic determined by [facility], Department of Laboratory Medicine. It [...] WF, WB and WH are performed by [address], [address]. All other case types are performed by [address], [address]. 08/15/2016 5:44 PM T [facility] Tissue (Products Of Conception) 08/11/2016 4:33 PM ENERGY SALES BROKER 08/12/2016 6:42 AM ENERGY SALES BROKER Dustin Bill MD PATHOLOGY/CYTOLOGY O [place] [facility] CLIA# [id number] [address] [place] [address] [place] [address] * (ABNORMAL) CBC WITHOUT DIFFERENTIAL (08/11/2016 4:03 PM ENERGY SALES BROKER) WBC 12.3(H) 4.0 - 9.8 K/uL 08/11/2016 4:19 PM ENERGY SALES BROKER [facility] RBC 3.18(L) 3.90 - 4.90 M/uL 08/11/2016 4:19 PM [facility] HEMOGLOBIN 9.9(L) 11.8 - 14.8 g/dL 08/11/2016 4:19 PM [facility] HEMATOCRIT 29.6(L) 35.5 - 44.0 % 08/11/2016 4:19 PM [facility] . [facility] MCV 93.1 82.0 - 99.0 fL 08/11/2016 4:19 PM [facility] MCH 31.1 27.2 - 32.6 pg 08/11/2016 4:19 PM [facility] MCHC 33.4 31.5 - 35.5 g/dL 08/11/2016 4:19 PM [facility] PLATELETS 398(H) 140 - 350 K/uL 08/11/2016 4:19 PM [facility] MPV 9.4 9.3 - 12.4 fL 08/11/2016 4:19 PM [facility] RDW 12.3 11.5 - 14.5 % 08/11/2016 4:19 PM [facility] [employer] [facility] RDW-STDEV 42.4 37.1 - 48.7 fL 08/11/2016 4:19 PM [facility] [employer] [facility] Blood Venipuncture / Unknown 08/11/2016 4:03 PM ENERGY SALES BROKER 08/11/2016 4:09 PM [facility] Dustin Bill MD HEMATOLOGY ORDERABLE S [facility] CLIA# [id number] [address] [place] [address] documented in this encounter Visit Diagnoses Not on filedocumented in this encounter Administered Medications Inactive Administered Medications - up to 3 most recent administrations Medication Order MAR Action Action Date Dose Rate Site diphenhydrAMINE (BENADRYL) injection 12.5 mg 12.5 mg, IV, POST-PROCEDURE ONCE PRN, 2 doses, Starting on Shaila 08/11/16 at 1603, Until Shaila 08/11/16 at 2122, Nausea/Emesis, Routine, PACU HYDROcodone-acetaminophen (NORCO) 5-325 mg per tablet 1 Tablet 1 Tablet, Oral, EVERY 4 HOURS PRN, Starting on Shaila 08/11/16 at 1801, Until Shaila 08/11/16 at 2122, Pain (See admin instructions), Routine Given 08/11/2016 6:06 PM ENERGY SALES BROKER 1 Tablet lactated ringers solution IV, at 125 mL/hr, POST-PROCEDURE CONTINUOUS, Starting on Shaila 08/11/16 at 1615, Until Shaila 08/11/16 at 2122, Routine, PACU New Bag 08/11/2016 4:12 PM ENERGY SALES BROKER 125 mL/hr morphine 4 mg/mL injection 2 [...] Recently Administered Medications Times are shown in ENERGY SALES BROKER. Scheduled Medication Order 08/09/2016 08/10/2016 08/11/2016 ceFAZolin [...] Denton RN)1615 (Due)1844 (Stopped - Provider: Yanira Pantoja RN)1919 (Stopped - Provider: Jackelyn Alvarez, ATTILA) PRN Medication Order 08/09/2016 08/10/2016 08/11/2016 bupivacaine-EPINEPHrine [...] at 2122, Pain (See admin instructions), Routine 1806 (Given [...] PACU documented in this encounter Care Teams In Home Baby Sitter Relationship Specialty Start Date End Date Terrie Manning MD PCP - General Obstetrics and Gynecology 05/27/13 documented as of this encounter
--- OUTSIDE RECORDS SUMMARY | 2024-05-27 15:11 | XMS_ITS | Encounter Summary ---
Author Organization [facility] Address [address] [place] [address] Care Team Providers Care Mining Helper Name Role Phone Terrie Manning MD Primary Care Provider +1- [phone] Reason for Visit * Reason Onset Date Comments Results 01/02/2019 FISH Analysis Encounter Details Date Type Department Care Team (Late st Contact Info) Description 01/02/2019 Telephone [facility] Maternal [address] [place] [address] Francisco J Cook CGC [address] [facility] [address] [place] [address] Results (FISH Analysis) Social History Tobacco Use Types Packs/Day Years [...] Encounter - Francisco J Cook CGC - 01/02/2019 11:09 AM CDT Spoke with Ms. Alarcon on the phone regarding FISH analysis from the amniocentesis. Discussed with Ms. Alarcon that the genetic testing laboratory was unable to perform the FISH analysis on the amniotic fluid sample, due to unmet quality measurements of the amniotic fluid sample. Reviewed that the genetic testing laboratory will still be able to perform testing for the Karyotype and Chromosomal Microarray. Those results should be available in 1 - 2 weeks. All questions were answered, and Ms. Alarcon expressed understanding. documented in this encounter Plan of Treatment Upcoming Encounters Date Type Department Care Team (Late st Contact Info) Description 10/08/2024 9:45 AM CDT Office Visit [facility] MEASUREMENT OPERATOR - [address] [address] Terrie Manning MD [facility] [address] [address] documented as of this encounter Visit Diagnoses Not on filedocumented in this encounter Care Teams Mining Helper Relationship Specialty Start Date End Date Terrie Manning MD PCP - General Obstetrics and Gynecology 05/27/13 documented as of this encounter
--- OUTSIDE RECORDS SUMMARY | 2024-05-27 15:11 | XMS_ITS | Encounter Summary ---
Author Organization [facility] Address [address] [place] [address] Care Team Providers Care Assistant Infant Toddler Teacher Name Role Phone Terrie Manning MD Primary Care Provider +1- [phone] Reason for Visit * Reason Onset Date Comments Miscarriage 08/17/2016 Called Angela to follow up since recent loss by miscarriage. No answer. Left message with my contact information. Encounter Details Date Type Department Care Team ([facility] Contact Info) Description 08/17/2016 Telephone [facility] [address] [place] [address] Nisa Padron RN Miscarriage (Called Angela to follow up since recent loss by miscarriage. No answer. Left message with my [...] Upcoming Encounters Date Type Department Care Team ([facility] Contact Info) Description 10/08/2024 9:45 AM CDT Office Visit [facility] FISH CUTTING MACHINE OPERATOR - Medical [facility] [address] [facility] [address] [place] [address] Terrie Manning MD [address] [facility] [address] [place] [address] documented as of this encounter Visit Diagnoses Not on filedocumented in this encounter Care Teams Assistant Infant Toddler Teacher Relationship Specialty Start Date End Date Terrie Manning MD PCP - General Obstetrics and Gynecology 05/27/13 documented as of this encounter
--- OUTSIDE RECORDS SUMMARY | 2024-05-27 15:12 | XMS_ITS | Encounter Summary ---
Author Organization [facility] Address [address] [place] [address] Care Team Providers Care Guyline Operator Name Role Phone Unavailable Primary Care Provider Unavailabl e Reason for Visit * Reason Comments Abdominal Pain Encounter Details Date Type Department Care Team (Latest Contact Info) Description 06/22/2012 11:00 AM CAR SWEEPER Office Visit [facility] [place] [id number] [address] Xavi Aquino MD NO ADDRESS ON FILE Diarrhea; Abdominal pain, epigastric Social History Tobacco Use Types Packs/Day Years Used Date Smoking Tobacco: Never Alcohol Use Standard Drinks/Week Comments Yes 0 (1 standard drink = 0.6 oz pur e alcohol) 2-3 a month Sex and Gender Information Value Date Recorded Sex Assigned at Not on file Gender Identity Not on file Sexual Orientation Not on file documented as of this encounter Last Filed Vital Signs Vital Sign Reading Time Taken Comments Blood Pressure 96/54 06/22/2012 11:00 AM CAR SWEEPER Pulse 84 06/22/2012 11:00 AM CAR SWEEPER Temperature - - Respiratory Rate - - Oxygen Saturation 99% 06/22/2012 11: 00 AM CAR SWEEPER Inhaled Oxygen Concentration - - Weight 64.3 kg (141 lb 12.8 oz) 013 11:00 AM CAR SWEEPER Height 180.3 cm (5' 11 ) 06/22/2012 11: 00 AM CAR SWEEPER Body Mass Index 19.78 06/22/2012 11:00 AM CAR SWEEPER documented in this encounter Progress Notes * Xavi Aquino MD - 06/22/2012 11:25 AM CST GI INITIAL EVALUATION History of Present Illness: Fabio Alarcon is a 26 y.o. female who I am asked to see regarding abdominal pain. She developed abrupt onset of RUQ pain associated with mild nausea, no vomiting in May. The pain last less than a minute but was severe enough that she presented to an ER in [facility] for evaluation. There she believes she had a negative RUQ ultrasound and negative labs, although the details are not available. The pain started while she was running, and she has not run since then. Since that episode, she has experienced post-prandial discomfort - different than what she experienced in theER. She has had no fever, no weight loss, no melena. She has not tried any antacids. The ER sent her home with Vicodin, but she has not taken any. She use NSAIDs for perimenstrual migraines. She has no dysphagia, no vomiting. She has chronic loose bowel movements for about 15 years (maybe longer.) She will typically have 2 or 3 loose stools a day, no night time symptoms. She has always attributed this to IBS. She has never tried any dietary changes, nor has she noted any dietary association. She drinks moderate to heavy caffeine, uses artificial sweeteners daily (soda.) There Is no past history of ulcers, GERD, IBD or GI malignancies. There is no personal history of liver disease or hemochromatosis. Past History: Past Medical History Diagnosis Date ??? Unspecified deficiency anemia ??? IBS (irritable bowel syndrome) No Known Allergies History Substance Use Topics ??? Smoking status: Never Smoker ??? Smokeless tobacco: Not on file ??? Alcohol Use: Yes 2-3 a month Family History Problem Relation Age of Onset ??? Colon Polyps Maternal Grandmother Review of Systems: The review of systems is negative for exertional chest pain, shortness of breath, cough , edema, fever, chills or weight loss. The patient also denies skin rashes, joint pains, double vision, dysuria, cold intolerance, muscle pain or weakness. See HPI for GI ROS. Physical Exam: Filed Vitals: 06/22/12 1100 BP: 96/54 Pulse: 84 Height: 1.803 m (5' 11 ) Weight: 64.32 kg (141 lb 12.8 oz) SpO2: 99% General: alert, no acute distress Skin: no rash or spider angioma. There is no jaundice. HEENT: There is no pallor or pupils are equal. Neck: Supple, no thyromegaly, adenopathy or JVD Lungs: Normal inspiration, clear to auscultation bilaterally Heart: Regular rate, no murmurs Abdomen: soft, mild tenderness along the right mid-abdomen, non-distended, no mass is palpable, no guarding or rebound, normal active bowel sounds. Liver is 10 cm. There is no splenomegaly or ascitespresent. No Dimas's sign. Extremities: warm without cyanosis or edema Neuro: Alert, oriented x 3. Non focal. There is no asterixis. Assessment: Abdominal pain. Negative ultrasound. No typical of biliary colic. Chronic bowel habit disturbance, likely functional. Plan: Check labs for celiac disease, LFTs, H. Pylori ab. Trial of Omeprazole 20mg daily. May need EGD. Dietary restriction - lactose free, sweetener free. May need colonoscopy. SWEEPER documented in this encounter Plan of Treatment Upcoming Encounters Date Type Department Care Team (Late st Contact Info) Description 10/08/2024 9:45 AM CDT Office Visit [facility]ULLET [facility] - [facility] [address] [address] Terrie Manning MD [address] [facility] [address] [address] documented as of this encounter Procedures Procedure Name Priority Date/Time Associated Diagnosis Comments HELICOBACTER PYLORI AB IGG/IGM/IGA Routine 06/26/2012 6:00 PM CAR SWEEPER TRANSGLUTAMINASE AB IGG/IGA Routine 06/26/2012 6:00 PM CAR SWEEPER CELIAC DISEASE ANTIBODIES Routine 06/26/2012 6:00 PM CAR SWEEPER CBC WITH DIFFERENTIAL Routine 06/26/2012 6:00 PM CAR SWEEPER HEPATIC FUNCTION PANEL Routine 3 6:00 PM CAR SWEEPER documented in this encounter Results * CBC WITH DIFFERENTIAL (06/26/2012 6:00 PM CAR SWEEPER) WBC 6.0 3.8 - 10.8 Thousand/u L [facility] RBC 4.12 3.80 - 5.10 Million/uL [facility] HEMOGLOBIN 12.3 11.7 - 15.5 g/dL [facility] HEMATOCRIT 38.0 35.0 - 45.0 % [facility] MCV 92.3 80.0 - 100.0 fL [facility] MCH 29.9 27.0 - 33.0 pg [facility] MCHC 32.3 32.0 - 36.0 g/dL [facility] RDW 13.4 11.0 - 15.0 % [facility] PLATELETS 372 140 - 400 Thousand/u L [facility] NEUTROPHIL ABSOLUTE 2,742 1,500 - 7,800 cells/uL [facility] LYMPHOCYTE ABSOLUTE 2,550 850 - 3,900 cells/uL [facility] MONOCYTE ABSOLUTE 576 200 - 950 cells/uL [facility] EOSINOPHIL ABSOLUTE 102 15 - 500 cells/uL [facility] BASOPHILS ABSOLUTE 30 0 - 200 cells/uL [facility] NEUTROPHIL 45.7 % [facility] LYMPHOCYTES 42.5 % [facility] MONOCYTE 9.6 % [facility] EOSINOPHILS 1.7 % [facility] BASOPHILS 0.5 % [facility] Comment: NO COLLECTION DATE RECEIVED. WE HAVE USED THE DATE THE SPECIMEN WAS RECEIVED BY THIS LABORATORY THE COLLECTION DATE. IF THIS IS INCORRECT, PLEASE CONTACT CLIENT SERVICES. PHONE NUMBER: [phone] Test Performed at: [facility] [address] [place], [place] ??[address] SERGIO LEAHY DO,MPH Xavi Aquino MD HEMATOLOGY ORDERABLE S Performing Organization Address [facility] Phone Number INTERFACE SYSTEM Refer to clinic/hospital department [facility] [address] [place] [address] * TRANSGLUTAMINASE AB IGG/IGA (06/26/2012 6:00 PM CAR SWEEPER) TRANSGLUTAMINASE IGG AB 1 <6 U/mL [facility] Comment: ? Value ?? Interpretation ?<6 U/mL: No Antibody Detected ? >or=6 U/mL: Antibody Detected TRANSGLUTAMINASE IGA AB 1 <4 U/mL [facility] Comment: ? Value ?? Interpretation ?<4 U/mL: No Antibody Detected ? >or=4 U/mL: Antibody Detected Test Performed at: [facility]/[address] ?? SUE WEN MD Xavi Aquino MD CHEMISTRY ORDERABLES Performing Organization Address [facility] Phone Number INTERFACE SYSTEM Refer to clinic/hospital department [facility] [address] [place] [address] * (ABNORMAL) HEPATIC FUNCTION PANEL (06/26/2012 6:00 PM CAR SWEEPER) TOTAL PROTEIN 6.9 6.1 - 8.1 g/dL [facility] ALBUMIN 4.8 3.6 - 5.1 g/dL [facility] GLOBULIN 2.1 1.9 - 3.7 g/dL (calc) [facility] ALBUMIN/GLOBULIN RATIO 2.3 1.0 - 2.5 (calc) [facility] BILIRUBIN TOTAL 0.6 0.2 - 1.2 mg/dL [facility] BILIRUBIN DIRECT 0.1 < OR = 0.2 mg/dL [facility] BILIRUBIN INDIRECT 0.5 0.2 - 1.2 mg/dL (calc) [facility] ALKALINE PHOSPHATASE 76 33 - 115 U/L [facility] AST 55(H) 10 - 30 U/L [facility] ALT 65(H) 6 - 40 U/L [facility] Comment: Test Performed at: [facility] [address] [place], [place] ??[phone] SERGIO LEAHY DO,MPH Xavi Aquino MD CHEMISTRY ORDERABLES Performing Organization Address City/State/[facility] Co de Phone Number INTERFACE SYSTEM Refer to clinic/hospital department [facility] [address] [place] [address] * CELIAC DISEASE ANTIBODIES (06/26/2012 6:00 PM CAR SWEEPER) TRANSGLUTAMINASE IGA AB 1 <4 U/mL [facility] Comment: ? Value ?? Interpretation ?<4 U/mL: No Antibody Detected ? >or=4 U/mL: Antibody Detected Test Performed at: [facility]/[address] ?? SUE WEN MD IGA 95 81 - 463 mg/dL [facility] . [facility] GLIADIN IGA AB 5 <20 units [facility] Comment: ??Value ? Interpretation ?<20 ? Antibody not detected ?? >=20 ? Antibody detected Xavi Aquino MD CHEMISTRY ORDERABLES Performing Organization Address City/[facility] Co de Phone Number INTERFACE SYSTEM Refer to clinic/hospital department [facility] [address] [place] [address] * HELICOBACTER PYLORI AB IGG/IGM/IGA (06/26/2012 6:00 PM CAR SWEEPER) H. PYLORI IGG Negative Negative [facility] Comment: H. pylori serology testing measures antibodies to H. pylori and is not recommended for the diagnosis of active infection. ??The [employer] [place] [employer] and the [place] [employer] recommend either the urea breath test [id number]] or the fecal antigen test [id number]] for diagnosis and confirmation or eradication in cases of suspected or proven Helicobacter pylori infection. Test Performed at: [facility]/[address] ?? SUE WEN MD H. PYLORI IGA Negative Negative [facility] H. PYLORI IGM Negative Negative [facility] Comment: H. pylori serology may result in false positives, especially in isolated IgM H. pylori positive patients. ??A Urea Breath test or stool antigen test for H. pylori should be considered if clinically indicated. This test was developed and its performance characteristics have been determined by [employer] [place], [place]. Performance characteristics refer to the analytical performance of the test. Xavi Aquino MD CHEMISTRY ORDERABLES Performing Organization Address [facility] Co de Phone Number INTERFACE SYSTEM Refer to clinic/hospital department [facility] [address] [place] [address] documented in this encounter Visit Diagnoses Diagnosis Diarrhea Abdominal pain, epigastric documented in this encounter
--- OUTSIDE RECORDS SUMMARY | 2024-05-27 15:12 | XMS_ITS | Encounter Summary ---
Author Organization [facility] Address [address] [place] [address] Care Team Providers Care Repair Service Dispatcher Name Role Phone Terrie Manning MD Primary Care Provider [phone] Reason for Visit * Auth/Cert - Closed Specialty Diagnoses / Procedures Referred By Contac t Referred To Contact Gastroenterology Diagnoses CHRONIC DIARRHA, REFLUX, FM HX OF COLON CANCER Procedures COLONOSCOPY [facility] Endoscopy [facility] [address] [place] [address] Referral ID Status Reason Start Date Expiration Date Visits Re quested Visits Authorized [id number] Closed 1 1 Encounter Details Date Type Department Care Team (Latest Contact Info) Description 06/06/2013 9:15 AM [employer] SUPERVISOR - 06/06/2013 10:51 AM [employer] SUPERVISOR Hospital Encounter [facility] [address] [place] [address] Xavi Aquino MD NO ADDRESS ON FILE Discharge Disposition: Home [...] Sign Reading Time Taken Comments Blood Pressure 110/72 06/06/2013 10:33 AM [employer] SUPER[employer]OR Pulse 96 06/06/2013 10:33 AM [employer] SUPERVISOR Temperature 36.4 ??C (97.5 ??F) 06/06/2013 10:[address] Respiratory Rate 16 06/06/2013 10:33 AM [employer] SUPER[employer]OR Oxygen Saturation 100% 06/06/2013 10:33 AM [employer] SUPERVISOR Inhaled Oxygen Concentration - - Weight 63.5 kg (140 lb) 06/03/2013 1:30 PM [employer] SUPER[employer] Height 180.3 cm (5' 11 ) 06/03/2013 1:30 PM [employer]PER[employer]OR Body Mass Index 19.53 06/03/2013 1:30 PM [employer] documented in this encounter Discharge Instructions * Discharge Instructions* Xavi Aquino MD - 06/06/2013 10:27 AM [employer] SUPER[employer]OR Instructions after EGD and Colonoscopy After an upper endoscopy you may have a minor sore throat. A throat lozenge or Tylenol will help torelieve any discomfort. DO NOT drink alcohol until tomorrow. DO NOT drive, operate machinery, make critical decisions until tomorrow. Limit activities that require coordination or balance for 24 hours. Resume your previous diet unless otherwise instructed. Resume your previous medications unless otherwise instructed. Notify your physician if you develop any of the following: Severe pain Fever of 101 degrees F Redness or soreness at the IV site Large amount of bleeding, passing large blood clots, or black tarry stools If tissue samples were taken during the procedure, you will notified by phone or mail with the results. If you have not been notified within two weeks, please call the office. Office Phone: [facility] [phone] [facility]???s [phone] [facility] [phone] [facility] [phone] Exchange: [employer] SUPERVISOR documented in this encounter Medications at Time of Discharge Medication Sig Dispensed Refills Start Date End Date FROVATRIPTAN SUCCINATE (FROVA ORAL) Take by mouth. 08/09/2016 omeprazole (PRILOSEC) 20 mg Oral CpDRIndications:Diarrhea, Abdominal pain, epigastric Take 1 Cap by mouth daily. 30 Cap 2 06/22/2012 08/09/2016 documented as of this encounter H&P Notes * Xavi Aquino MD - 06/06/2013 9:54 AM CST GI H&P ENDOSCOPY PRE PROCEDURE EVALUATION DATE: 06/06/2013 HPI: This is a 27 y.o. female patient scheduled for Colonoscopy and EGD for diarrhea, chronic abdominal pain.Epigastric pain There are no active problems to display for this patient. Past Medical History Diagnosis Date ??? Unspecified deficiency anemia ??? IBS (irritable bowel syndrome) ??? 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 Diarrhea 06/03/13 ??? GERD (gastroesophageal reflux disease) ??? Abdominal pain Past Surgical History Procedure Laterality Date ??? Pr oral surgery Prescriptions prior to admission Medication Sig Dispense Refill ??? FROVATRIPTAN SUCCINATE (FROVA ORAL) Take by mouth. ??? omeprazole (PRILOSEC) 20 mg Oral CpDR Take 1 Cap by mouth daily. 30 Cap 2 No Known Allergies History Substance Use Topics ??? Smoking status: Never Smoker ??? Smokeless tobacco: Not on file ??? Alcohol Use: Yes Comment: 2-3 a month Family History Problem Relation Age of Onset ??? Colon Polyps Maternal Grandmother Anicteric OM/OP - unremarkable Neck - supple, no thyromegally Chest - CTA bilaterally C/V - RRR without murmur, gallop, or rub Abdomen - Soft, non-tender, non-distended, normal active bowel sounds, no organomegally, no fullness or mass, no rebound, no guarding. Ext - No clubbing, cyanosis, or edema. Neuro- Alert and oriented x 3, motor exam grossly intact. ASA Classification: Per anesthesia Informed Consent: The patient was informed of the indications for the procedure, the risks/benefits and the alternatives, and agreed to proceed. In particular, the patient was informed of the risk of perforation/(1:1000), medication side effect, infection, a missed lesion, or incomplete examination. In the case of dilatation, the patient was informed of the risk of perforation (1 to 5%). There was nothing onhistory or physical examination precluding the procedure. IMPRESSION & PLAN: Indications for procedure as noted in HPI. Will proceed with the above mentioned procedure(s) as scheduled. Xavi Aquino MD [employer]PERVISOR documented in this encounter Procedure Notes * Xavi Aquino MD - 06/06/2013 10:27 AM CSTAssociated Order(s): GI REPORT [facility] Endoscopy Patient Name: Inessa Alarcon Procedure Date No Time: 06/06/2013 Date of : 1985 Admit Type: Outpatient Age: 27 Attending MD: Xavi Aquino MD Procedure: Colonoscopy Indications: Clinically significant diarrhea of unexplained origin, Abdominal pain Providers: Xavi Aquino MD Referring MD: Terrie Manning MD Medicines: General TIVA Procedure: Informed consent was obtained for the procedure, including moderate sedation after risks were discussed. Based on the pre-procedure assessment, including review of the patient?s medical history, medications, allergies, and review of systems, the patient was deemed to be an appropriate candidate for sedation. A timeout was performed. Continuous ECG monitoring, pulse oximetry, blood pressure monitoring, and direct observation were performed. The scope was introduced through the anus and advanced to the terminal ileum. The colonoscopy was performed with difficulty due to significant looping. Successful completion of the procedure was aided by using manual pressure. The patient tolerated the procedure well. The quality of the bowel preparation was good. Estimated Blood Loss: Estimated blood loss: none. Findings: The terminal ileum appeared normal. Normal mucosa was found in the entire colon. Biopsies were taken with a cold forceps for evaluation of microscopic colitis. Estimated blood loss: none. Complications: No immediate complications. Impression: - The examined portion of the ileum was normal. - Normal mucosa in the entire examined colon. Biopsied. Recommendation: - Await pathology results. Xavi Aquino MD 06/06/2013 10:27 AM This report has been signed electronically. Number of Addenda: 0 200 [facility] [address] [address] [employer] SUPERVISOR * Xavi Aquino MD - 06/06/2013 10:25 AM CSTAssociated Order(s): GI REPORT [facility] Endoscopy Patient Name: Inessa Alarcon Procedure Date No Time: 06/06/2013 Date of : 1985 Admit Type: Outpatient Age: 27 Attending MD: Xavi Aquino MD Procedure: Upper GI endoscopy Indications: Abdominal pain in the left upper quadrant, Suspected celiac disease Providers: Xavi Aquino MD Referring MD: Terrie Manning MD Medicines: General TIVA Procedure: Informed consent was obtained for the procedure, including moderate sedation after risks were discussed. Based on the pre-procedure assessment, including review of the patient?s medical history, medications, allergies, and review of systems, the patient was deemed to be an appropriate candidate for sedation. A timeout was performed. Continuous ECG monitoring, pulse oximetry, blood pressure monitoring, and direct observation were performed. The Endoscope was introduced through the mouth, and advanced to the second part of duodenum. The upper GI endoscopy was accomplished without difficulty. The patient tolerated the procedure well. Estimated Blood Loss: Estimated blood loss: none. Findings: The esophagus was normal. Mildly erythematous mucosa was found in the gastric antrum. Biopsies were taken with a cold forceps for Helicobacter pylori testing using a rapid urease test. Estimated blood loss: none. No gross lesions were noted in the entire examined duodenum. Biopsies were taken with a cold forceps for evaluation of celiac disease. Estimated blood loss: none. Complications: No immediate complications. Impression: - Normal esophagus. - Erythematous mucosa in the antrum. Biopsied. - No gross lesions in duodenum. Recommendation: - Await pathology results. Xavi Aquino MD 06/06/2013 10:25 AM This report has been signed electronically. Number of Addenda: 0 200 [facility] [address] [facility] [address] [employer] SUPER[employer]OR documented in this encounter OR Notes * OR Anesthesia - Jose Haque MD - 06/06/2013 10:26 AM CST Phase II Postanesthesia Evaluation Including [facility] Modified Jesus Score Patient seen and evaluated: [facility] Modified Jesus Score: Score: 20 (06/06/13920) COMMENTS: No apparent Anesthesia related complications RESPIRATORY FUNCTION: Respiration: able to breath and cough freely (06/06/13920) [2=able to breathe and cough freely, 1=dyspnea, limited breathing or tachypnea, 0=apnea or mechanicventilator] O2 Saturation: able to maintain O2 saturation greater than 92% on room air (06/06/13920) [2=able to maintain O2 saturation greater than 92% on room air, 1=needs O2 inhalation to maintain O2 saturation greater than 90%, 0=O2 saturation less than 90% even with O2 supplement] Resp: 16 (06/06/131020)SpO2: 98 % (06/06/131020) CARDIOVASCULAR FUNCTION: BP: 106/69 mmHg (06/06/131020) Circulation: BP within 20% of preanesthetic level (06/06/13920) [2=BP within 20% of preanesthetic level, 1=BP within 20-49% of preanesthetic level, 0=BP within 50%of preanesthetic level] MENTAL STATUS, NEURO, ACTIVITY: Consciousness: fully awake (06/06/13920) [2=fully awake, 1=arousable on calling, 0=not responding] Activity: able to move 4 extremities voluntarily or on command (06/06/13920) [2=able to move 4 extremities voluntarily or on command, 1=able to move 2 extremities voluntarily or on command, 0=unable to move extremities voluntarily or on command] Ambulation: able to stand up and walk straight, on ordered bedrest, or performing at patient's prior level of function (06/06/13920) [2=able to stand up and walk straight, on ordered bedrest, or performing at patient's prior level of function, 1=vertigo when erect, 0=dizziness when supine] TEMPERATURE: Temp: 97.5 ??F (36.4 ??C) (06/06/131020) PAIN: Presence of Pain: denies pain/discomfort (06/06/131020) Pain: pain free (06/06/13920) [2=pain free, 1=pain handled by oral medication, 0=pain requiring parenteral medication] NAUSEA AND VOMITING: Fasting/Feeding: able to drink fluids, ice chips or NPO (06/06/13920) [2=able to drink fluids, ice chips or NPO, 1=nauseated, 0=nausea and vomiting] POSTOPERATIVE HYDRATION: No intake or output data in the 24 hours ending 06/06/13 1026 Urine Output: has voided, adequate urine output per device, or not applicable (06/06/13920) [2=has voided, adequate urine output per device, or not applicable, 1=unable to void but comfortable, 0=unable to void and uncomfortable] WOUND: Dressing: dry and clean or not applicable (06/06/13920) [2=dry and clean or not applicable, 1=wet, marked and not increasing, 0=growing area of wetness] Jose Haque MD 06/06/2013 10:26 AM [employer] SUPERVISOR * OR Anesthesia - Jose Haque MD - 06/06/2013 10:13 AM CST Pre-Anesthesia Evaluation - Long Form 06/06/2013 10:14 AM Name: Inessa Alarcon Age: 27 y.o. Sex: female CSN: [id number] Procedure: Procedure(s): COLONOSCOPY ESOPHAGOGASTRODUODENOSCOPY Surgeons/Assistants: Surgeon(s) and Role: * Xavi Aquino MD - Primary No Known Allergies Prescriptions prior to admission Medication Sig Dispense Refill ??? FROVATRIPTAN SUCCINATE (FROVA ORAL) Take by mouth. ??? omeprazole (PRILOSEC) 20 mg Oral CpDR Take 1 Cap by mouth daily. 30 Cap 2 There are no active problems to display for this patient. Past Medical History Diagnosis Date ??? Unspecified deficiency anemia ??? IBS (irritable bowel syndrome) ??? 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 Diarrhea 06/03/13 ??? GERD (gastroesophageal reflux disease) ??? Abdominal pain Past Surgical History Procedure Laterality Date ??? Pr oral surgery History Substance Use Topics ??? Smoking status: Never Smoker ??? Smokeless tobacco: Not on file ??? Alcohol Use: Yes Comment: 2-3 a month Family History Problem Relation Age of Onset ??? Colon Polyps Maternal Grandmother Previous Anesthesia Problems/Concerns: No anesthesia problems/complications History of PONV No Review of Systems Cardiovascular: negative Respiratory: negative Gastroenterology: negative PHYSICAL EXAM BP 123/91 Pulse 121 Temp(Src) 99.3 ??F (37.4 ??C) (Tympanic) Resp 16 Ht 5' 11 (1.803 m) Wt 140 lb (63.504 kg) BMI 19.53 kg/m2 SpO2 100% Weight: Weight: 140 lb (63.504 kg) (06/03/13 1330) Height: Ht Readings from Last 1 Encounters: 06/03/13 5' 11 (1.803 m) BMI: Body mass index is 19.53 kg/(m^2). Airway: normal range of motion: Airway Class: I (soft palate, uvula, fauces, tonsillar pillars visible); None Lungs: clear to auscultation bilaterally, normal respiratory effort Heart: regular rate and rhythm, S1, S2 normal, no murmur, click, rub or gallop Neuro: alert, oriented x 3, no defects noted in general exam. Vascular Access: None LABS Lab Results Component Value Date/Time WBC 6.0 06/26/2012 6:00 PM HEMOGLOBIN 12.3 06/26/2012 6:00 PM HEMATOCRIT 38.0 06/26/2012 6:00 PM PLATELETS 372 06/26/2012 6:00 PM MCV 92.3 06/26/2012 6:00 PM No results found for this basename: NA, K, CL, CO2, CA, BUN, CREAT, GLUCOSE, ANIONGAP, BCRATIO No results found for this basename: INR, PT, PROTIMEPOC No results found for this basename: HCGURPOC, HCGQUALUR, HCGQUAL, HCGQUANT, HCGINTACT No results found for this basename: glucpoc Other Studies/Considerations: None Postop pain management discussed yes Smoking/Tobacco Counseling: None Recommendations: None NPO Yes ASA Physical Status: ASA 2 - Patient with mild systemic disease with no functional limitations I have seen and examined this patient and confirm that all data is current and accurate. Yes Choice of Anesthesia/Anesthesia Plan: Proceed, Monitored Anesthesia Care and Routine Monitoring I have discussed the anesthetic options and the risks/benefits with the patient/family. Questions have been solicited and answered. Yes Jose Haque MD I can be reached during the day at [phone] If no answer [phone] [employer]OR documented in this encounter Plan of Treatment Upcoming Encounters Date Type Department Care Team (Late st Contact Info) Description 10/08/2024 9:45 AM CDT Office Visit [facility] SOAPING DEPARTMENT SUPERVISOR - [facility] [address] [facility] [address] [place] [phone] Terrie Manning MD [address] [facility] [address] [place] [address] documented as of this encounter Procedures Procedure Name Priority Date/Time Associated Diagnosis Comments PATHOLOGY Routine 06/06/2013 12:02 PM [employer]OR GI REPORT 06/06/2013 10:28 AM [employer] SUPERVISOR GI REPORT 06/06/2013 10:26 AM [employer] SUPERVISOR POC H.PYLORI SCREEN, BIOPSY Routine 07/2013 9:57 AM [employer] SUPERVISOR ESOPHAGOGASTRODUODENOSCOPY 06/06 9:54 AM [employer] SUPERVISOR CHRONIC DIARRHA, REFLUX, FM HX OF COLON CANCER Case Notes [facility] COLONOSCOPY 06/06/2013 9:54 AM [employer] SUPERVISOR CHRONIC DIARRHA, REFLUX, FM HX OF COLON CANCER Case Notes [facility] - [facility] documented in this encounter Results * PATHOLOGY (06/06/2013 12:02 PM [employer] SUPERVISOR) SURGICAL PATHOLOGY ?[facility] ?[address] ? [place], [place] ??[address] ? Patient: ??INESSA ALARCON ? : ??1985 ? Procedure Date: ??06/06/2013 ? Accession Date: ??06/06/2013 ? Case No: ??[id number] ? Ordering Dr: ??XAVI AQUINO ? Case type SW is performed by [facility], [address], ? [place], [place] ??[address]; all other case types are performed by [facility] ? [facility], [address], [place] ??[address] ?SURGICAL PATHOLOGY & NON-GYNECOLOGIC CYTOPATHOLOGY REPORT ? DIAGNOSIS ? DUODENUM, ENDOSCOPIC BIOPSY: ? - NO SPECIFIC HISTOPATHOLOGIC ALTERATION. ? LARGE INTESTINE, EXACT SITE NOT STATED, COLONOSCOPIC BIOPSY: ? - REACTIVE CHANGES. ? Specimen Description: ? (1) Duodenal biopsies; (2) colon biopsies. ? Operative Procedure: ? Esophagogastroduodenos copy, colonoscopy. ? Patient Information/History/Di agnosis: ? (1) Rule out celiac disease, (2) diarrhea. ? Gross: ? The specimens are received in two containers, each labeled Inessa A. ? Sczurko. Received in the first container labeled duodenal biopsies are ? three pieces of irregular, pink-zuñiga tissue ranging from 0.2 to 0.3 cm in ? greatest dimension. The specimen is submitted in toto labeled A1. ? Received in the second container labeled colon biopsies are five pieces ? of irregular, zuñiga-red tissue ranging from 0.2 to 0.7 cm in greatest ? dimension. The specimen is submitted in toto labeled B1. ? LUCILAW/FIDENCIO 06.06.2013 12:27 pm ? Microscopic: ? Sections are labeled S14-12, Inessa Alarcon. ? The biopsy from the duodenum displays small intestinal mucosa with a ? delicate villous-like architecture. No increased intraepithelial ? lymphocytosis is seen. There is no active enteritis. The biopsy from the ? colon displays a few reactive lymphoid aggregates interspersed throughout ? the lamina propria. No active cryptitis is seen. There is no evidence of ? collagenous or microscopic colitis in the sections examined. ? Special stain and/or immunohistochemical results are interpreted with ? controls that demonstrate appropriate staining reactions. Note on use of ? immunocytochemistry reagents: This test was developed and its performance ? characteristic determined by [facility], Department of ? Laboratory Medicine. ??It has not been cleared or approved by the U.S. Food ? and Drug Administration. The FDA has determined that such clearance or ? approval is not necessary. The test is used for clinical purpose. It should ? not be regarded as investigational or for research. ??This laboratory is ? certified to perform high complexity testing. ? BBK/PJS 06.07.2013 11:42 am ? Staging Form: ? No ? ELECTRONIC SIGNATURE FOR ABILIO MARIN M.D.- 06/07/13 01:09 pm [facility] Tissue specimen (specimen) 06/06/2013 12:02 PM [employer] SUPERVISOR Xavi Aquino MD PATHOLOGY/CYTOLOGY O RDERABLES [facility] CLIA# [id number] [address] [place] [address] * GI REPORT (06/06/2013 10:28 AM [employer] SUPERVISOR) Narrative Transcriptions Xavi Aquino MD - 06/06/2013 10:27 AM CST [facility] Endoscopy Patient Name: Inessa Alarcon Procedure Date No Time: 06/06/2013 Date of : 1985 Admit Type: Outpatient Age: 27 Attending MD: Xavi Aquino MD Procedure: Colonoscopy Indications: Clinically significant diarrhea of unexplained origin, Abdominal pain Providers: Xavi Aquino MD Referring MD: Terrie Manning MD Medicines: General TIVA Procedure: Informed consent was obtained for the procedure, including moderate sedation after risks were discussed. Based on the pre-procedure assessment, including review of the patient?s medical history, medications, allergies, and review of systems, the patient was deemed to be an appropriate candidate for sedation. A timeout was performed. Continuous ECG monitoring, pulse oximetry, blood pressure monitoring, and direct observation were performed. The scope was introduced through the anus and advanced to the terminal ileum. The colonoscopy was performed with difficulty due to significant looping. Successful completion of the procedure was aided by using manual pressure. The patient tolerated the procedure well. The quality of the bowel preparation was good. Estimated Blood Loss: Estimated blood loss: none. Findings: The terminal ileum appeared normal. Normal mucosa was found in the entire colon. Biopsies were taken with a cold forceps for evaluation of microscopic colitis. Estimated blood loss: none. Complications: No immediate complications. Impression: - The examined portion of the ileum was normal. - Normal mucosa in the entire examined colon. Biopsied. Recommendation: - Await pathology results. Xavi Aquino MD 06/06/2013 10:27 AM This report has been signed electronically. Number of Addenda: 0 200 [facility] [address] [facility] [address] Xavi Aquino MD GI PROCEDURE ORDERAB LES * GI REPORT (06/06/2013 10:26 AM [employer] SUPERVISOR) Narrative Transcriptions Xavi Aquino MD - 06/06/2013 10:25 AM CST [facility] Endoscopy Patient Name: Inessa Alarcon Procedure Date No Time: 06/06/2013 Date of : 1985 Admit Type: Outpatient Age: 27 Attending MD: Xavi Aquino MD Procedure: Upper GI endoscopy Indications: Abdominal pain in the left upper quadrant, Suspected celiac disease Providers: Xavi Aquino MD Referring MD: Terrie Manning MD Medicines: General TIVA Procedure: Informed consent was obtained for the procedure, including moderate sedation after risks were discussed. Based on the pre-procedure assessment, including review of the patient?s medical history, medications, allergies, and review of systems, the patient was deemed to be an appropriate candidate for sedation. A timeout was performed. Continuous ECG monitoring, pulse oximetry, blood pressure monitoring, and direct observation were performed. The Endoscope was introduced through the mouth, and advanced to the second part of duodenum. The upper GI endoscopy was accomplished without difficulty. The patient tolerated the procedure well. Estimated Blood Loss: Estimated blood loss: none. Findings: The esophagus was normal. Mildly erythematous mucosa was found in the gastric antrum. Biopsies were taken with a cold forceps for Helicobacter pylori testing using a rapid urease test. Estimated blood loss: none. No gross lesions were noted in the entire examined duodenum. Biopsies were taken with a cold forceps for evaluation of celiac disease. Estimated blood loss: none. Complications: No immediate complications. Impression: - Normal esophagus. - Erythematous mucosa in the antrum. Biopsied. - No gross lesions in duodenum. Recommendation: - Await pathology results. Xavi Aquino MD 06/06/2013 10:25 AM This report has been signed electronically. Number of Addenda: 0 200 [place] [id number] Xavi Aquino MD GI PROCEDURE ORDERAB LES * POC H.PYLORI SCREEN, BIOPSY (06/06/2013 9:57 AM [employer] SUPERVISOR) H PYLORI SCREEN POC Negative Negative INTERFACE SYSTEM CLIA LICENSE [id number] INTERF [place]AT[place] SYSTEM Specimen from unspecified body site obtained by biopsy (specimen) 06/06/2013 9:57 AM [employer] SUPERVISOR 06/06/2013 9:57 AM [employer] SUPERVISOR Comment:BIOPSY Xavi Aquino MD POINT OF CARE TESTIN G INTERFACE SYSTEM Refer to clinic/hospital department documented in this encounter Visit Diagnoses Not on filedocumented in this encounter Administered Medications Inactive Administered Medications - up to 3 most recent administrations Medication Order MAR Action Action Date Dose Rate Site lactated ringers solution IV, at 125 mL/hr, PRE-PROCEDURE CONTINUOUS, Starting on Shaila 06/06/13 at 0930, Until Shaila 06/06/13 at 1252, Routine, Pre-Procedure New Bag 06/06/2013 9:30 AM [employer] SUPERVISOR 125 mL/hr documented in this encounter Active and Recently Administered Medications Times are shown in AIR CARGO GROUND CREW SUPERVISOR. Continuous Medication Order 06/04/2013 06/05/2013 06/06/2013 lactated ringers solution (CANCELED) IV, at 125 mL/hr, PRE-PROCEDURE CONTINUOUS, Starting on Shaila 06/06/13 at 0930, Until Shaila 06/06/13 at 1252, Routine, Pre-Procedure 0930 (New Bag - Prov ider: Rose Marie Chinchilla RN)1033 (Stopped - Provider: Beth Laguna RN) documented in this encounter Care Teams Repair Service Dispatcher Relationship Specialty Start Date End Date Terrie Manning MD PCP - General Obstetrics and Gynecology 05/27/13 documented as of this encounter
--- OUTSIDE RECORDS SUMMARY | 2024-05-27 15:12 | XMS_ITS | Encounter Summary ---
Author Organization [facility] Address [address] [place] [address] Care Team Providers Care Fourdrinier Tender Name Role Phone Unavailable Primary Care Provider Unavailabl e Encounter Details Date Type Department Care Team (Latest Contact Info) Description 06/22/2012 11:35 AM TENT WORKER - 06/22/2012 11:59 PM [facility] Hospital Encounter [facility] Laboratory Services Medical [place] [address] [facility], [place] [address] Xavi Aquino MD NO ADDRESS ON FILE [...] 06/22/2012 08/09/2016 documented as of this encounter Plan of Treatment Upcoming Encounters Date Type Department Care Team (Late st Contact Info) Description 10/08/2024 9:45 AM CDT Office Visit [facility] TELEMARKETING SUPERVISOR - Medical [facility] [address] [facility] [address] [place] [address] Terrie Manning MD [address] [facility] [address] [address] documented as of this encounter Visit Diagnoses Not on filedocumented in this encounter
--- OUTSIDE RECORDS SUMMARY | 2024-05-27 15:12 | XMS_ITS | Encounter Summary ---
Author Organization [facility] Address [address] [place] [address] Care Team Providers Care Greens Laborer Name Role Phone eTrrie Manning MD Primary Care Provider [phone]- [phone] Reason for Visit * Auth/Cert Specialty Diagnoses / Procedures Referred By Contac t Referred To Contact Obstetrics Diagnoses bleeding [facility] Ob Triage [address] [place] [address] Referral ID Status Reason Start Date Expiration Date Visits Re quested Visits Authorized [id number] 1 1 Encounter Details Date Type Department Care Team (Latest Contact Info) Description 08/09/2016 6:02 AM MECHANIC ASSISTANT - 08/09/2016 7:45 AM MECHANIC ASSISTANT Hospital Encounter [facility] OB Triage [address] [place] [address] Terrie Manning MD [address] [facility] [address] [place] [address] Discharge Disposition: Home or Self [...] Sign Reading Time Taken Comments Blood Pressure 116/81 08/09/2016 6:31 AM MECHANIC ASSISTANT Pulse 100 08/09/2016 6:31 AM MECHANIC ASSISTANT Temperature 36.5 ??C (97.7 ??F) 08/09/2016 6:31 AM CS T Respiratory Rate 16 08/09/2016 6:31 AM MECHANIC ASSISTANT Oxygen Saturation - - Inhaled Oxygen Concentration - - Weight 70.3 kg (155 lb) 08/09/2016 6:31 AM MECHANIC ASSISTANT Height 180.3 cm (5' 11 ) 08/09/2016 6:31 AM MECHANIC ASSISTANT Body Mass Index 21.62 08/09/2016 6:31 AM MECHANIC ASSISTANT documented in this encounter Discharge Instructions * Discharge Instructions* Betzy Manjarrez RN - 08/09/2016 7:41 AM MECHANIC ASSISTANT Mayorga to follow up with your next scheduled appointment. Pelvic rest until given the OK by Dr. Manning. Monitor your bleeding. If you soak 1 maxi pad in [address] Tamayo exchange or return to OB triage. ANIC ASSISTANT * Attachments The following attachments cannot be sent through Care Everywhere. * MISCARRIAGE: THREATENED (MOHAWK) documented in this encounter Medications at Time of Discharge Medication Sig Dispensed Refills Start Date End Date progesterone micronized (PROMETRIUM) 100 mg Capsule Take by mouth daily. 018 Vit 57-Mwvd-VU-DSS (ADVANCED ) 90-1-50 mg Tablet Take 1 Tablet by mouth daily. 03/06/2019 dicyclomine (BENTYL) 10 mg capsuleIndications:Diarrh ea Take 1 Cap by mouth 2 times daily before meals. 60 Cap 2 06/12/2013 08/11/2016 documented as of this encounter Progress Notes * Betzy Manjarrez RN - 08/09/2016 7:45 AM CST Discharge instructions and bleeding precautions explained to pt. Pt instructed to follow up on at her next scheduled appointment or if symptoms worsen. Pt discharged home ambulatory with at her side. ANIC ASSISTANT * Lakshmi Elder RN - 08/09/2016 6:33 AM CST Pt presents to OB triage with complaints of vaginal bleeding and cramping that started at 0300 thismorning with huge clots following at 0400. Report given to John Contreras CNM. ANIC ASSISTANT documented in this encounter H&P Notes * Harriet Contreras CNM - 08/09/2016 6:50 AM CST OB H&P Chief Complaint: HPI: Angela Alarcon is a 30 y.o. female 8w5d weeks gestation based on the No LMP recorded. Patient is . who presents to the OBT from home for evaluation of cramping and bleeding that started at 0300. States she passed a few small to medium sized clots and was rating her cramping t 4 earlier. Patient now rates her pain and discomfort at 2 on a scale of 1 to 10. This is an IVF . Her last ultrasound was a week ago in Dr. Apodaca's office. She had 4 failed IUI's prior to this . She thinks she has Rh positive blood type. She has her first OB appt with Dr. Manning in twodays.Her primary recruitment advertising manager is Terrie Manning MD. Current Problem List: 1. Primary infertility OB History Para Term AB SAB TAB Ectopic Multiple Living 1 # Outcome Date GA Lbr Ryan/2nd Weight Sex Delivery Anes PTL Lv 1 Current GYNHX/ Past Medical History Diagnosis Date ??? Abdominal [...] COLONOSCOPY performed by Xavi Aquino MD at [facility] ??? Pr esophagogastroduodenoscopy transoral diagnostic 06/06/2013 ESOPHAGOGASTRODUODENOSCOPY performed by Xavi Aquino MD at [facility] ??? Hx wisdom teeth extraction Social History: Family History Problem Relation Age of Onset ??? Colon Polyps Maternal Grandmother Prescriptions Prior to Admission Medication Sig Dispense Refill Last Dose ??? progesterone micronized (PROMETRIUM) 100 mg Capsule Take by mouth daily. 08/08/2016 at Unknown time ??? estradiol (ESTRACE) 1 mg tablet Take 1 mg by mouth daily. 08/08/2016 at Unknown time ??? Vit 84-Qlbo-EW-DSS (ADVANCED ) 90-1-50 mg Tablet Take 1 Tablet by mouth daily.08/08/2016 at Unknown time ??? dicyclomine (BENTYL) 10 mg capsule Take 1 Cap by mouth 2 times daily before meals. 60 Cap 2 ? ? FROVATRIPTAN SUCCINATE (FROVA ORAL) Take by mouth. > Month at Unknown ??? omeprazole (PRILOSEC) 20 mg Oral CpDR Take 1 Cap by mouth daily. 30 Cap 2 No Known Allergies The above has been reviewed with the patient & documented in the electronic record. Review of Systems Constitutional: Tearful but communicating clearly HEENT: Benign Respiratory: no tobacco use; no respiratory illness history Cardiovascular: no cardiac history Gastrointestinal: Denies nausea, vomiting, diarrhea Genitourinary: No dysuria or frequency. Musculoskeletal: No edema Skin: Negative for rash Neurological: Negative for syncope or dizziness Hematological: Negative for bruising/bleeding easily Psychosocial: Here with her Patrick Exam: Vitals: 08/09/16 0631 BP: 116/81 Patient Position (BP): Sitting Pulse: 100 Resp: 16 Temp: 97.7 ??F (36.5 ??C) TempSrc: Oral Weight: 70.3 kg (155 lb) Height: 5' 11 (1.803 m) Constitutional: alert, in no acute physcial distress; as above Lungs: Clear HEENT: Benign Heart: RR Abdomen: soft, gravid, no fundal tenderness Musculoskeletal: No edema FHT: FHT + at 155 bpm Cervix: Dilation: closed, firm; peas sized clot visualized at os Effacement: Station: Speculum: Pooling Scant to moderate amount of dark red blood removed from vaginal vault Fern not done Wet prep: not indicated Lab Review Labs: Results for orders placed or performed during the hospital encounter of 08/09/16 (from the past 24 hour(s)) RH IMMUNE GLOBULIN EVALUATION Result Value Ref Range ABO GROUP O RH (D) TYPE Positive CORD BLOOD TYPE Cord Blood Grp and Rh Unknown Bedside US: GS appears WNL Cardiac activity confirmed Single viable IUP @ 8-9 weeks gestation Assessment: 1. 8w5d weeks gestation 2. Threatened ab 3. IVF 4. Rh positive Plan: Observe in OBT Orders Placed This Encounter ??? HCG QUANTITATIVE, BLOOD ??? DIET GENERAL Effective Now ??? Vital Signs per Facility Department Guidelines ??? BEDREST With Bathroom Privileges ??? Notify Provider - BP Changes ??? Education, Smoking Cessation and Second Hand Smoke Avoidance ??? RH IMMUNE GLOBULIN EVALUATION ??? progesterone micronized (PROMETRIUM) 100 mg Capsule ??? estradiol (ESTRACE) 1 mg tablet ??? Vit 21-Wisc-KF-DSS (ADVANCED ) 90-1-50 mg Tablet 0735: Spoke to Dr. Manning: OK to be discharged and keep her appt with her on 08/11/2016. Bleeding precautions reviewed. Pelvic rest. documented in this encounter Plan of Treatment Upcoming Encounters Date Type Department Care Team (Late st Contact Info) Description 10/08/2024 9:45 AM CDT Office Visit [facility] CORPORATE LAW SPECIALIST - Medical [facility] [address] [place] [address] Terrie Manning MD [facility] [address] [place] [address] documented as of this encounter Procedures Procedure Name Priority Date/Time Associated Diagnosis Comments VERIFICATION BLOOD GROUP Routine 08/09/2016 6:57 AM MECHANIC ASSISTANT RH IMMUNE GLOBULIN EVALUATION Stat 08/09/2016 6:57 AM MECHANIC ASSISTANT documented in this encounter Results * VERIFICATION BLOOD GROUP (08/09/2016 6:57 AM MECHANIC ASSISTANT) ABO GROUP O 08/09/2016 7:40 AM MECHANIC ASSISTANT [facility] RH (D) TYPE Positive 08/09/2016 7:40 AM MECHANIC ASSISTANT [facility] Blood Venipuncture / Unknown 08/09/2016 6:57 AM MECHANIC ASSISTANT 08/09/2016 7:06 AM MECHANIC ASSISTANT Harriet Contreras [facility] [place] [facility] B[facility]OD [facility] ORD [facility] CLIA# [id number] [address] [place] [address] * RH IMMUNE GLOBULIN EVALUATION (08/09/2016 6:57 AM MECHANIC ASSISTANT) ABO GROUP O 08/09/2016 7:36 AM MECHANIC ASSISTANT [facility] RH (D) TYPE Positive 08/09/2016 7:36 AM MECHANIC ASSISTANT [facility] CORD BLOOD TYPE Cord Blood Grp and Rh Unknown 08/09/2016 7:36 AM MECHANIC ASSISTANT [facility] RHIG ELIGIBILITY No RHIg, pt Rh Pos 08/09/2016 7:36 AM MECHANIC ASSISTANT [facility] Blood Venipuncture / Unknown 08/09/2016 6:57 AM MECHANIC ASSISTANT 08/09/2016 7:06 AM MECHANIC ASSISTANT Harriet Contreras [facility] [facility] BLOOD [facility] ORD [facility] CLIA# [id number] [address] [place] [address] documented in this encounter Visit Diagnoses Diagnosis Threatened in first trimester Threatened , unspecified as to episode of care documented in this encounter Care Teams Greens Laborer Relationship Specialty Start Date End Date Terrie Manning MD PCP - General Obstetrics and Gynecology 05/27/13 documented as of this encounter
--- OUTSIDE RECORDS SUMMARY | 2024-05-27 15:12 | XMS_ITS | Encounter Summary ---
Author Organization [facility] Address [address] [place] [address] Care Team Providers Care News Analyst Name Role Phone Bebeto Manning MD Primary Care Provider [phone]- [phone] Reason for Visit * Auth/Cert - Closed Specialty Diagnoses / Procedures Referred By Contac t Referred To Contact Gastroenterology Diagnoses CHRONIC DIARRHA, REFLUX, FM HX OF COLON CANCER Procedures COLONOSCOPY [facility] [address] [place] [address] Referral ID Status Reason Start Date Expiration Date Visits Re quested Visits Authorized [id number] Closed 1 1 Encounter Details Date Type Department Care Team (Late st Contact Info) Description 06/06/2013 10:00 AM SALES REPRESENTATIVE - 06/06/2013 10:30 AM SALES REPRESENTATIVE Surgery [facility] [address] [place] [address] Xavi Aquino MD NO ADDRESS ON FILE COLONOSCOPY Surgery Details Date/Time Status Location OR Service Patient Class Case Class Case Type Trauma Case? 06/06/2013 10:00 AM Posted [facility] GI 01 Gastroenterology Outpatient Elective No Panel 1 Procedure LRB Anes Op Region Wound Class Comments COLONOSCOPY N/A General Anus Clean Contaminated-II BEBETO LIZZ ESOPHAGOGASTRODUODENOSCOPY N/A General Esophagus Clean Contaminated-II Surgeon Surgeon Role Service Panel Xavi Aquino MD Primary Gastroenterology 1 Case Notes NPR - JKD documented in this encounter Social History Tobacco [...] Sign Reading Time Taken Comments Blood Pressure 106/69 06/06/2013 10:21 AM SALES REPRESENTATIVE Pulse 113 06/06/2013 10:21 AM SALES REPRESENTATIVE Temperature 36.4 ??C (97.5 ??F) 06/06/2013 10:[address] Respiratory Rate 16 06/06/2013 10:21 AM SALES REPRESENTATIVE Oxygen Saturation 98% 06/06/2013 10:21 AM SALES REPRESENTATIVE Inhaled Oxygen Concentration - - Weight 63.5 kg (140 lb) 06/03/2013 1:30 PM SALES REPRESENTATIVE Height 180.3 cm (5' 11 ) 06/03/2013 1:30 PM SALES REPRESENTATIVE Body Mass Index 19.53 06/03/2013 1:30 PM SALES REPRESENTATIVE documented in this encounter Discharge Instructions * Discharge Instructions* Xavi Aquino MD - 06/06/2013 10:27 AM SALES REPRESENTATIVE Instructions after EGD and Colonoscopy After an [...] weeks, please call the office. Office Phone: [facility] [phone] [facility]???s [phone] [place] [phone] [facility] [phone] Exchange: S REPRESENTATIVE documented in this encounter Medications at Time [...] mentioned procedure(s) as scheduled. Xavi Aquino MD S REPRESENTATIVE documented in this encounter Procedure Notes * Xavi Aquino MD - 06/06/2013 10:27 AM CSTAssociated Order(s): GI REPORT [facility] Endoscopy Patient Name: Inessa Alarcon Procedure Date No Time: 06/06/2013 Date of : 1985 Admit Type: Outpatient Age: 27 Attending MD: Xavi Aquino MD Procedure: Colonoscopy Indications: Clinically significant diarrhea of unexplained origin, Abdominal pain Providers: Xavi Aquino MD Referring MD: Bebeto Manning MD Medicines: General TIVA Procedure: Informed [...] signed electronically. Number of Addenda: 0 [address] [facility] [address] S REPRESENTATIVE * Xavi Aquino MD - 06/06/2013 10:25 AM CSTAssociated Order(s): GI REPORT [facility] Patient Name: Inessa Alarcon Procedure Date No Time: 06/06/2013 Date of : 1985 Admit Type: Outpatient Age: 27 Attending MD: Xavi Aquino MD Procedure: Upper GI endoscopy Indications: Abdominal pain in the left upper quadrant, Suspected celiac disease Providers: Xavi Aquino MD Referring MD: Bebeto Manning MD Medicines: General TIVA Procedure: Informed [...] signed electronically. Number of Addenda: 0 [address] [place] [address] S REPRESENTATIVE documented in this encounter OR Notes * OR Anesthesia - Shabnam, Jose Henderson MD - 06/06/2013 10:26 AM CST Phase II Postanesthesia Evaluation Including [facility] Modified Jesus Score Patient seen and evaluated: [...] 90% even with O2 supplement] Resp: 16 (06/06/13 102)SpO2: 98 % (06/06/13 1021) CARDIOVASCULAR FUNCTION: BP: 106/69 mmHg (06/06/13 1021) Circulation: BP within 20% of preanesthetic level [...] supine] TEMPERATURE: Temp: 97.5 ??F (36.4 ??C) (06/06/13 102) PAIN: Presence of Pain: denies pain/discomfort (06/06/13 102) Pain: pain free (06/06/13920) [2=pain free, 1=pain handled by oral medication, 0=pain requiring parenteral medication] NAUSEA AND VOMITING: Fasting/Feeding: able to drink fluids, ice chips or NPO (06/06/13920) [2=able to drink fluids, ice chips or NPO, 1=nauseated, 0=nausea and vomiting] POSTOPERATIVE HYDRATION: No intake or output data in the 24 hours ending 06/06/131025 Urine Output: has voided, adequate urine output per device, or not applicable (06/06/13920) [2=has voided, adequate urine output per device, or not applicable, 1=unable to void but comfortable, 0=unable to void and uncomfortable] WOUND: Dressing: dry and clean or not applicable (06/06/13920) [2=dry and clean or not applicable, 1=wet, marked and not increasing, 0=growing area of wetness] Jose Haque MD 06/06/2013 10:26 AM S REPRESENTATIVE * OR Anesthesia - Jose Haque MD - 06/06/2013 10:13 AM CST Pre-Anesthesia Evaluation - Long Form 06/06/2013 10:14 AM Name: Inessa Alarcon Age: 27 y.o. Sex: female [facility]: [id number] Procedure: Procedure(s): COLONOSCOPY ESOPHAGOGASTRODUODENOSCOPY Surgeons/Assistants: Surgeon(s) and [...] can be reached during the day at [phone] If no answer call [phone] S REPRESENTATIVE documented in this encounter Plan of Treatment Upcoming Encounters Date Type Department Care Team (Late st Contact Info) Description 10/08/2024 9:45 AM CDT [facility] Visit [facility] MEDICAL RECORDS CODER - [facility] [address] [place] [address] Bebeto Manning MD [facility] [address] [address] documented as of this encounter Procedures Procedure Name Priority Date/Time Associated Diagnosis Comments PATHOLOGY Routine 06/06/2013 12:02 PM SALES REPRESENTATIVE GI REPORT 06/06/2013 10:28 AM SALES REPRESENTATIVE GI REPORT 06/06/2013 10:26 AM SALES REPRESENTATIVE POC H.PYLORI SCREEN, BIOPSY Routine 07/2013 9:57 AM SALES REPRESENTATIVE ESOPHAGOGASTRODUODENOSCOPY 06/06 9:54 AM SALES REPRESENTATIVE CHRONIC DIARRHA, REFLUX, FM HX OF COLON CANCER Case Notes NPR - JKD COLONOSCOPY 06/06/2013 9:54 AM SALES REPRESENTATIVE CHRONIC DIARRHA, REFLUX, FM HX OF COLON CANCER Case Notes NPR - JKD documented in this encounter Results * PATHOLOGY (06/06/2013 12:02 PM SALES REPRESENTATIVE) SURGICAL PATHOLOGY ?[facility] ?[address] [facility] ? [place], [place] ??[address] ? Patient: ??IVANA, INESSA A ? : ??1985 ? Procedure Date: ??06/06/2013 ? Accession Date: ??06/06/2013 ? Case No: ??1- [id number] ? Ordering Dr: ??XAVI AQUINO ? Case type SW is performed by [facility], [address] [place] [address], ? [place], [place] ??[address]; all other case types are performed by [facility] ? [facility], [address] [place], [place] ??[address] ?SURGICAL PATHOLOGY & NON-GYNECOLOGIC CYTOPATHOLOGY REPORT ? [...] is submitted in toto labeled B1. ? ALW/SKW 06.06.2013 12:27 pm ? Microscopic: ? Sections [...] and its performance ? characteristic determined by [facility], Department of ? Laboratory Medicine. ??It has [...] FOR ABILIO MARIN M.D.- 06/07/13 01:09 pm [facility] Tissue specimen (specimen) 06/06/2013 12:02 PM SALES REPRESENTATIVE Xavi Aquino MD PATHOLOGY/CYTOLOGY O RDERAAGA [facility]# [id number] [address] [place] [address] * GI REPORT (06/06/2013 10:28 AM SALES REPRESENTATIVE) Narrative Transcriptions Xavi Aquino MD - 06/06/2013 10:27 AM CST [facility] Endoscopy [facility] Endoscopy Patient Name: Inessa Alarcon Procedure Date No Time: 06/06/2013 Date of : 1985 Admit Type: Outpatient Age: 27 Attending MD: Xavi Aquino MD Procedure: Colonoscopy Indications: Clinically significant diarrhea of unexplained origin, Abdominal pain Providers: Xavi Aquino MD Referring MD: Bebeto Manning MD Medicines: General TIVA Procedure: Informed [...] signed electronically. Number of Addenda: 0 200 [facility] [address] [facility] [address] Xavi Aquino MD GI PROCEDURE ORDERAB LES * GI REPORT (06/06/2013 10:26 AM SALES REPRESENTATIVE) Narrative Transcriptions Xavi Aquino MD - 06/06/2013 10:25 AM CST [facility] Patient Name: Inessa Alarcon Procedure Date No Time: 06/06/2013 Date of : 1985 Admit Type: Outpatient Age: 27 Attending MD: Xavi Aquino MD Procedure: Upper GI endoscopy Indications: Abdominal pain in the left upper quadrant, Suspected celiac disease Providers: Xavi Aquino MD Referring MD: Bebeto Manning MD Medicines: General TIVA Procedure: Informed [...] signed electronically. Number of Addenda: [address] [address] Xavi Aquino MD GI PROCEDURE ORDERAB LES * POC H.PYLORI SCREEN, BIOPSY (06/06/2013 9:57 AM SALES REPRESENTATIVE) H PYLORI SCREEN POC Negative Negative INTERFACE SYSTEM CLIA LICENSE [id number] INTERF [place] SYSTEM Specimen from unspecified body site obtained by biopsy (specimen) 06/06/2013 9:57 AM SALES REPRESENTATIVE 06/06/2013 9:57 AM SALES REPRESENTATIVE Comment:BIOPSY Xavi Aquino MD POINT OF CARE [...] Routine, Pre-Procedure New Bag 06/06/2013 9:30 AM SALES REPRESENTATIVE 125 mL/hr documented in this encounter Active and Recently Administered Medications Times are shown in SALES REPRESENTATIVE. Continuous Medication Order 06/04/2013 06/05/2013 06/06/2013 lactated ringers solution (CANCELED) IV, at 125 mL/hr, PRE-PROCEDURE CONTINUOUS, Starting on Shaila 14 at 0930, Until Shaila 14 at 1252, Routine, Pre-Procedure 0930 (New Bag - Prov ider: Rose Marie Chinchilla RN)1033 (Stopped - Provider: Beth Laguna RN) documented in this encounter Care Teams News Analyst Relationship Specialty Start Date End Date Bebeto Manning MD PCP - General Obstetrics and Gynecology 05/27/13 documented as of this encounter
--- OUTSIDE RECORDS SUMMARY | 2024-05-27 15:12 | XMS_ITS | Encounter Summary ---
Author Organization [facility] Address [address] [place] [address] Care Team Providers Care Traffic Court Magistrate Name Role Phone Bebeto Manning MD Primary Care Provider [phone] Reason for Referral * Outpatient Services (Routine) - Closed Specialty Diagnoses / Procedures Referred By Contac t Referred To Contact Diagnoses Vaginal bleeding in , first trimester Procedures US OB LESS THAN 14 WKS SINGLE Pablo Castano MD NO ADDRESS ON FILE Referral ID Status Reason Start Date Expiration Date Visits Re quested Visits Authorized [id number] Closed 08/09/2016 09/09/2017 1 1 ITION EDUCATOR Reason for Visit * Outpatient Services (Routine) - Closed Specialty Diagnoses / Procedures Referred By Contac t Referred To Contact Diagnoses Vaginal bleeding in , first trimester Procedures US OB LESS THAN 14 WKS SINGLE Pablo Castano MD NO ADDRESS ON FILE Referral ID Status Reason Start Date Expiration Date Visits Re quested Visits Authorized [id number] Closed 08/09/2016 09/09/2017 1 1 Encounter Details Date Type Department Care Team (Latest Contact Info) Description 08/09/2016 3:44 PM NUTRITION EDUCATOR - 08/09/2016 11:59 PM NUTRITION EDUCATOR Hospital Encounter [facility] [address] [place] [address] Pablo Louis MD NO ADDRESS ON FILE Discharge Disposition: [...] Capsule Take by mouth daily. 018 Vit 68-Cfva-ZE-DSS (ADVANCED ) 90-1-50 mg Tablet Take 1 Tablet by mouth daily. 03/06/2019 dicyclomine (BENTYL) 10 mg capsuleIndications:Diarrh ea Take 1 Cap by mouth 2 times daily before meals. 60 Cap 2 06/12/2013 08/11/2016 documented as of this encounter Plan of Treatment Upcoming Encounters Date Type Department Care Team (Late st Contact Info) Description 10/08/2024 9:45 AM CDT Office Visit [facility] DISH MACHINE OPERATOR - Medical [address] [address] Bebeto Manning MD [facility] [address] [place] [address] documented as of this encounter Procedures Procedure Name Priority Date/Time Associated Diagnosis Comments US OB LESS THAN 14 WKS SINGLE GEST Routine 08/09/2016 4:35 PM NUTRITION EDUCATOR Vaginal bleeding in , first trimester documented in this encounter Results * US OB LESS THAN 14 WKS SINGLE GEST (08/09/2016 4:35 PM NUTRITION EDUCATOR) Anatomical Region Laterality Modality Pelvis Ultrasound 08/09/2016 4:05 PM NUTRITION EDUCATOR Impressions 08/09/2016 5:50 PM NUTRITION EDUCATOR IMPRESSION ----- Single intrauterine CRL consistent with stated dating and LEXIE of 03/16/2017 FHR noted Small subchorionic collection is noted measuring 8.6 x 4.3 x 6.5 mm The US findings were reviewed with the patient. Follow up between 11-13 weeks has been scheduled. Thank you for allowing us to participate in the care of your patient. Narrative 08/09/2016 5:50 PM NUTRITION EDUCATOR 1st Trimester <10 weeks ----- Pat. Name: INESSA ALARCON Study Date: 08/09/2016 4:05pm Pat. NO: [id number] Referring ??MD: BEBETO MANNING MD Site: [facility] Education Reporter: Betzy Luna [facility] : 1985 Age: 30 ----- INDICATION ----- Bleeding < 20wks Maternal Mental Disorder ? 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 IVF technology CODING ----- Diagnosis ? O20.9: Hemorrhage in early , unspecified. ?O99.341: Other mental disorders complicating . ?O09.811: Supervision of resulting from assisted reprod tech. ?Z3A.08: Weeks Gestation of . Procedures ?19477: OB ABD <14 wks (1st trimester). ?01529: OB Transvaginal - Cervical length. HISTORY ----- OB History ?: 1. MATERNAL ASSESSMENT ----- Physical Exam ? Weight 70 kg. BMI 21.63 kg/m?. METHOD ----- Transabdominal and transvaginal ultrasound examination. Good view. ----- Cuadra . Number of fetuses: 1. DATING ----- Stated dating by: Known LEXIE GA by stated dating 8 w + 5 d LEXIE by stated dating : 03/16/2017 Ultrasound examination on: 08/09/2016 GA by U/S based upon: CRL GA by U/S 8 w + 5 d LEXIE by U/S: 03/16/2017 Assigned: Dating performed on 08/09/2016, based on the stated dating (by Known LEXIE) Assigned GA 8 w + 5 d Assigned LEXIE: 03/16/2017 ASSESSMENT ----- Gestational sac: visualized. Location: intrauterine. Yolk sac: visualized. Embryo: visualized. Cardiac activity: present. CRL ?21.1 ? mm ?8w 5d ?Hadlock FHR ?178 ?bpm ? hypoechoic area measures 8.6 x 4.3 x 6.5 mm. MATERNAL STRUCTURES ----- Uterus ?Long 8.7 cm x AP 5.5 cm x Tr 5.6 cm. Vol. 140.3 cm?. Cervix ?Visualized, Patient states she is not allergic to latex and a latex probe cover was used. Right Ovary ? Size 2.3 cm x 1.7 cm. Mean 2.0 cm. Left Ovary ?Size 3.0 cm x 2.6 cm x 1.4 cm. Mean 2.3 cm. Vol. 5.7 cm?. Procedure Note Jamie Forrester DO - 08/09/2016 1st Trimester <10 weeks ----- Pat. Name:Sonu ALARCON Date:08/09/2016 4:05pm Pat. 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 O99.341: Other mental disorders complicatingpregnancy. O09.811: Supervision of resulting fromassisted reprod tech. Z3A.08: Weeks Gestation of . Procedures 06586: OB ABD <14 wks (1st trimester). 67507: OB Transvaginal - Cervical length. HISTORY ----- OB History : 1. MATERNAL ASSESSMENT ----- Physical Exam Weight 70 kg. BMI 21.63 kg/m?. METHOD ----- Transabdominal and transvaginal ultrasound examination. Good view. ----- Cuadra . Number of fetuses: 1. DATING ----- Stated dating by:Known LEXIE GA by stated dating 8 w + 5 d LEXIE by stated dating :03/16/2017 Ultrasound examination on:08/09/2016 GA by U/S based upon:CRL GA by U/S8 w + 5 d LEXIE by U/S:03/16/2017 Assigned:Dating performed on 08/09/2016, based on the stated dating (byKnown LEXIE) Assigned GA8 w + 5 d Assigned LEXIE:03/16/2017 ASSESSMENT ----- Gestational sac: visualized. Location: intrauterine. Yolk sac: visualized. Embryo: visualized. Cardiac activity: present. CRL 21.1 mm 8w 5dHadlock FHR 178 bpm hypoechoic area measures 8.6 x 4.3 x 6.5 mm. MATERNAL STRUCTURES ----- Uterus Long 8.7 cm x AP 5.5 cm x Tr 5.6 cm. Vol. 140.3cm?. Cervix Visualized, Patient states she is not allergic tolatex and a latex probe cover was used. Right Ovary Size 2.3 cm x 1.7 cm. Mean 2.0 cm. Left Ovary Size 3.0 cm x 2.6 cm x 1.4 cm. Mean 2.3 cm. Vol.5.7 cm?. IMPRESSION IMPRESSION ----- Single intrauterine CRL consistent with stated dating and LEXIE of 03/16/2017 FHR noted Small subchorionic collection is noted measuring 8.6 x 4.3 x 6.5 mm The US findings were reviewed with the patient. Follow up between 11-13 weeks has been scheduled. Thank you for allowing us to participate in the care of your patient. Pablo Louis MD US ORDERABLES documented in this encounter Visit Diagnoses Diagnosis Vaginal bleeding in , first trimester documented in this encounter Care Teams Traffic Court Magistrate Relationship Specialty Start Date End Date Bebeto Manning MD PCP - General Obstetrics and Gynecology 05/27/13 documented as of this encounter
--- OUTSIDE RECORDS SUMMARY | 2024-05-27 15:12 | XMS_ITS | Encounter Summary ---
Author Organization [facility] Address [address] [place] [address] Care Team Providers Care Mud Jack Nozzle Worker Name Role Phone Terrie Manning MD Primary Care Provider [phone] Reason for Visit * Reason Onset Date Comments Procedure 05/27/2013 Encounter Details Date Type Department Care Team (Late st Contact Info) Description 05/27/2013 Telephone [facility] Non [facility] GI Procedure [address] [place] [id number] Xavi Ferrera MD NO ADDRESS ON FILE Procedure Social History Tobacco Use Types Packs/Day Years [...] encounter Miscellaneous Notes * Telephone Encounter - Catarina Reno - 05/27/2013 4:50 PM CST Angela Alarcon is a 27 y.o. female 1985 Procedure: COLONOSCOPY AND UPPER ENDOSCOPY Chronic diarrhea, reflux, fm hx of colon CA - grandfather dx'd near age 74 Provider: XAVI FERRERA Date and Time: 06/06/2013 @ 10:00am Location: [facility] (PT NEEDS ON WINTER BREAK FOR WORK) Prep Given: MIRALAX Pre-cert Required? NO Patient Transport: SPOUSE OR MOTHER (Friend/Family Member/Transport Service/Undecided) Anesthesia Consult Requested? no PCP: Terrie Manning MD Referring Provider: (If different than PCP) Do any of the following factors below apply to this patient? ELABORATE POSITIVE ANSWERS WITH DETAIL (who, what, when, where) Has patient previously been seen by a [facility] computer video game designer in an inpatient or outpatientsetting? (If yes please note ) yes; [facility] Previous Endoscopy (Colon, EGD, ERCP EUS): no History of issues following above procedures bleeding etc? no History of esophagectomy, gastrectomy, or bariatric surgery? no History of head/neck cancer, surgery or radiation? no History of gastric outlet obstruction? no Do you have sleep apnea? no Do you have COPD? no Are you on Oxygen at home? no Personal or family history of difficulty with sedation or anesthesia? no Do you have a pacemaker, Defibrillator, Stent, Bypass or heart valve replacement? (AICD) no Have you been diagnosed with CHF (Congestive Heart Failure), CAD Coronary Artery Disease or Unstable Angina? no History of Heart Attack? no Any heart condition or history of heart surgeries not previously listed? 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 no Current history of neurological conditions? no History of Kidney Dialysis or renal failure no History of Cirrhosis or Esophageal Varices? no History of MRSA or VRE? no Sickle Cell Disease (not just trait)? no Is patient ? no Is patient able to perform routine daily activities without assistance? yes Patients of Anticoagulants (Blood Thinners) no (Follow medication protocol) Patients BMI (36 and above need review, NO patients with BMI >50 or <16 Height: 5'11'' Weight: 140 BMI: 19.5 History Substance Use Topics ??? Smoking status: Never Smoker ??? Smokeless tobacco: Not on file ??? Alcohol Use: Yes Comment: 2-3 a month No Known Allergies Held Medications: NONE Current Outpatient Prescriptions Medication Sig Dispense Refill ??? FROVATRIPTAN SUCCINATE (FROVA ORAL) Take by mouth. ??? omeprazole (PRILOSEC) 20 mg Oral CpDR Take 1 Cap by mouth daily. 30 Cap 2 No current facility-administered medications for this visit. RAPHY FACULTY MEMBER documented in this encounter Plan of Treatment Upcoming Encounters Date Type Department Care Team (Late st Contact Info) Description 10/08/2024 9:45 AM CDT Office Visit [facility] LABOR REPRESENTATIVE - Medical [facility] [address] [place] [address] [address] Terrie Manning MD [address] [place] [address] documented as of this encounter Visit Diagnoses Not on filedocumented in this encounter Care Teams Mud Jack Nozzle Worker Relationship Specialty Start Date End Date Terrie Manning MD PCP - General Obstetrics and Gynecology 05/27/13 documented as of this encounter
--- OUTSIDE RECORDS SUMMARY | 2024-05-27 15:12 | XMS_ITS | Continuity of Care Document ---
Author Organization [facility] Address [address] [place] [address] Phone Care Team Providers Care Private Detective Name Role Phone Unavailable Unavailable Unavailable Advance Directives Directive Yes / No Effective Date File Name No Information Encounters Encounter Description Practice Location Reason(s) For Visit Diagnoses Date Provider Providers Copied on Encounter [facility], [address] [facility], [place], [place], [id number], tel:[phone] [facility] OUTPATIENT No Information Aug-0 6-201 7 No Information Referring Provider: BEBETO ZAMUDIO, [address] [place], [address]. tel:[phone] Family History Family Member Type Diagnosis Age At Onset No Information Payers Payer name Insurance type Covered alliance party ID Authorizedward forbes(s) JEFFREY PPO [id number] Social History Type Description Quantity Date Captured Comments Sex Female Smoking Status No Information Chief Complaint And Reason For Visit No Information History Of Present Illness Encounter Date Complaint History Of Prese nt Illness No Information Instructions Date Instruction Additional Infor mation No Information Assessments Type Assessment Date No Information
--- OUTSIDE RECORDS SUMMARY | 2024-05-27 15:12 | XMS_ITS | Encounter Summary ---
Author Organization [facility] Address [address] [place] [address] Care Team Providers Care Construction Stonemason Name Role Phone Unavailable Primary Care Provider Unavailabl e Encounter Details Date Type Department Care Team (Late st Contact Info) Description 06/25/2012 Abstract [facility] Gastroenterology [facility] [address] [facility] [address] [place] [address] Xavi Aquino MD NO ADDRESS ON FILE Social History Tobacco [...] AM CDT Office Visit [facility] BUTTON CLAMPER - Medical [facility] [address] [facility] [address] [place] [address] Terrie Manning MD [address] [facility] [address] [address] documented as of this encounter Visit Diagnoses Not on filedocumented in this encounter
--- OUTSIDE RECORDS SUMMARY | 2024-05-27 15:12 | XMS_ITS | Encounter Summary ---
Author Organization [facility] Address [address] [place] [address] Care Team Providers Care Machine Sweeper Brush Maker Name Role Phone Unavailable Primary Care Provider Unavailabl e Reason for Referral * Eval and Treat (Routine) - Closed Specialty Diagnoses / Procedures Referred By Cheikh pichardo Referred To Contact Gastroenterology Diagnoses Abdominal pain, right upper quadrant Diarrhea Xavi Aquino MD NO ADDRESS ON FILE Xavi Aquino MD NO ADDRESS ON FILE Referral ID Status Reason Start Date Expiration Date Visits Requested Visits Authorized [id number] Closed Ordering Department To Schedule 11/14/2012 11/15/2013 1 1 Reason for Visit * Reason Comments Irritable Bowel Syndrome Abdominal Pain Diarrhea Encounter Details Date Type Department Care Team (Latest Contact Info) Description 11/14/2012 2:20 PM CDT Office Visit [facility] Gastroenterology [facility] [address] [address] Xavi Aquino MD NO ADDRESS ON FILE Abdominal pain, right upper quadrant (Primary Dx); Diarrhea Social History Tobacco Use Types Packs/Day Years [...] Reading Time Taken Comments Blood Pressure 114/72 11/14/2012 2:35 PM CDT Pulse 79 11/14/2012 2:35 PM CDT Temperature - - Respiratory Rate - - Oxygen Saturation - - Inhaled Oxygen Concentration - - Weight 63 kg (139 lb) 11/14/2012 2:35 PM CDT Height 180.3 cm (5' 11 ) 11/14/2012 2:35 PM CDT Body Mass Index 19.39 11/14/2012 2:35 PM CDT documented in this encounter Progress Notes * Xavi Aquino MD - 11/14/2012 4:51 PM CDT OUTPATIENT PROGRESS NOTE Angela Alarcon 1985 11/14/2012 4:51 PM This is a 26 y.o. year old female who I follow for abdominal pain and diarrhea. She missed her ROV earlier this spring. Her labs (CBC, celiac testing) were normal, she had mildly elevated ALT/AST. She has tried a lactose free diet and eliminated artificial sweeteners, and the diarrhea is improved but not resolved. The right-sided pain only occurs with exercise, and is not an issue now. She put herself on a gluten-free diet, and does feel better on this - in retrospect she had some joint and body aches that are improved on gluten-free, but the GI issues are unchanged. She and her are leaving [place] cruise next week for two weeks. Physical Exam: BP 114/72 Pulse 79 Ht 1.803 m (5' 11 ) Wt 63.05 kg (139 lb) BMI 19.4 kg/m2 Body mass index is 19.4 kg/(m^2). Physical Exam: Anicteric OM/OP - unremarkable Neck - without LAD, no thyromegally Chest - CTA bilaterally C/V - RRR without murmur, gallop, or rub Abdomen - Soft, non-tender, non-distended, normal active bowel sounds, no organomegally, no fullness or mass, no rebound, no guarding. Ext - No clubbing, cyanosis, or edema. Neuro- Alert and oriented x 3, motor exam grossly intact. Labs/Imaging: Lab Results Component Value Date WBC 6.0 06/26/2012 HEMOGLOBIN 12.3 06/26/2012 HEMATOCRIT 38.0 06/26/2012 PLATELETS 372 06/26/2012 MCV 92.3 06/26/2012 Lab Results Component Value Date TOTAL PROTEIN 6.9 06/26/2012 ALBUMIN 4.8 06/26/2012 BILIRUBIN TOTAL 0.6 06/26/2012 ALKALINE PHOSPHATASE 76 06/26/2012 AST 55* 06/26/2012 ALT 65* 06/26/2012 Impression/Plan Abdominal pain, diarrhea. Etiology unclear. This may be functional/dysmotility. Will plan EGD and colonoscopy. Unclear how non-celiac gluten-sensitivity plays a role in symptoms. Mildly elevated LFTs- will repeat LFTs. Xavi Aquino MD [facility] Digestive Diseases documented in this encounter Plan of Treatment Upcoming Encounters Date Type Department Care Team (Late st Contact Info) Description 10/08/2024 9:45 AM CDT Office Visit [facility] FILE CLERK - Medical [place] [address] [address] Terrie Manning MD [facility] [address] [place] [address] Scheduled Referrals Name Type Priority Associated Diagnoses Order Schedule AMB REFERRAL TO GASTROENTEROLOGY Outpatient Referral Routine Abdominal pain, right upper quadrant Diarrhea Ordered: 11/14/2012 documented as of this encounter Visit Diagnoses Diagnosis Abdominal pain, right upper quadrant- Primary Diarrhea documented in this encounter
--- OUTSIDE RECORDS SUMMARY | 2024-05-27 15:12 | XMS_ITS | Encounter Summary ---
Author Organization [facility] Address [address] [place] [address] Care Team Providers Care Butcher Assistant Name Role Phone Terrie Manning MD Primary Care Provider [phone] Reason for Visit * Reason Onset Date Comments Results 06/12/2013 Encounter Details Date Type Department Care Team (Late st Contact Info) Description 06/12/2013 Telephone [facility] Gastroenterology - [address] [address] Xavi Aquino MD NO ADDRESS ON FILE Results Social History Tobacco Use Types Packs/Day [...] encounter Miscellaneous Notes * Telephone Encounter - Xavi Aquino MD - 06/12/2013 12:57 PM CST Reviewed results with pt. Duodenal bx normal, colon bx are negative. Symptoms may be functional (or post-infectious IBS.) Nothing to suggest celiac dz. Will offer Bentyl 10mg twice daily - titrate to affect. BW DATA ARCHITECT documented in this encounter Plan of Treatment Upcoming Encounters Date Type Department Care Team (Late st Contact Info) Description 10/08/2024 9:45 AM CDT Office Visit [facility] ANALYTICAL TECHNICIAN - [facility] [address] [address] Terrie Manning MD [address] [facility] [address] [place] [address] documented as of this encounter Visit Diagnoses Diagnosis Diarrhea- Primary documented in this encounter Care Teams Butcher Assistant Relationship Specialty Start Date End Date Terrie Manning MD PCP - General Obstetrics and Gynecology 05/27/13 documented as of this encounter
--- OUTSIDE RECORDS SUMMARY | 2024-05-27 15:47 | XMS_ITS | Encounter Summary ---
Author Organization [facility] Address [address] [place] [address]. [place] [address] [place] [address] Care Team Providers Care Belt Brander Name Role Phone Lena Meyer PA-C Primary Care Provider [phone] Encounter Details Date Type Department Care Team (Late st Contact Info) Description 03/16/2023 9:20 AM CDT Laboratory Only [facility] Family & Internal Medicine [address] [address] Lena Meyer PA-C [address] [place] [address] Social History Tobacco Use Types Packs/Day Years [...] unspecified documented in this encounter Care Teams Belt Brander Relationship Specialty Start Date End Date Lena Meyer PA-C [address] [place] [address] PCP - General PHYSICIAN FURNITURE CRATER 02/27/23 documented as of this encounter
--- OUTSIDE RECORDS SUMMARY | 2024-05-27 15:47 | XMS_ITS | Encounter Summary ---
Author Organization [facility] Address [address] [place] [address]. [place] [address] Care Team Providers Care Manager Acquisition Name Role Phone Vonda Loya PA-C Primary Care Provider Reason for Referral * Imaging (Routine) - Closed Specialty Diagnoses / Procedures Referred By Contelia t Referred To Contact RADIOLOGY Diagnoses Elevated liver enzymes Procedures US ABD LIMITED Vonda Loya PA-C [id number] [place] [address] Phone: tel: fax: Referral ID Status Reason Start Date Expiration Date Visits Re quested Visits Authorized [id number] Closed 03/14/2023 03/14/2024 1 1 Encounter Details Date Type Department Care Team (Late st Contact Info) Description 03/14/2023 Orders Only [facility] Family & Internal Medicine [facility] [address] [place] [phone] Harriet Wolff RN Social History Tobacco [...] * US ABD LIMITED (04/11/2023 10:47 AM MANIFOLD OPERATOR) Anatomical Region Laterality Modality Abdomen Ultrasound 04/11/2023 1:17 PM MANIFOLD OPERATOR Impressions 04/11/2023 1:20 PM MANIFOLD OPERATOR IMPRESSION: 1. ??Mild fatty liver without focal mass. Ordered By: VONDA LOYA Interpreted By: Nato Johnson, 04/11/2023 1:17 PM Narrative 04/11/2023 1:20 PM MANIFOLD OPERATOR IMAGING STUDIES: ??US ABD LIMITED ? DATE: ??04/11/2023 10:12 AM COMPARISON STUDIES: No previous exams available CLINICAL HISTORY: Abnormal levels of other serum enzymes. Elevated liver enzymes FINDINGS: 1. ??Normal appearance to the gallbladder without calculi. No gallbladder wall thickening. 2. ??Mild fatty infiltration of the liver without focal mass..Hepatic and portal veins are patent.. Common bile duct measures.4.5 mm. 3. ??Right kidney gtyggtgt35.9 x 4.4 x 5.0 cm. No focal [...] bile duct measures.4.5 mm. 3. Right kidney gwucdvzs78.9 x 4.4 x 5.0 cm. No focal mass orhydronephrosis. 4. Partially visualized pancreas without gross abnormality. IMPRESSION: 1. Mild fatty liver without focal mass. Ordered By: VONDA LOYA Interpreted By: Nato Johnson, 04/11/2023 1:17 PM Vonda COBB-C ULTRASOUND Final Result * VITAMIN B12 / FOLATE (03/16/2023 9:01 AM CDT) VITAMIN B12 S/P/B 632 193 - 986 PG/ML 03/16/2023 2:12 PM CDT [facility] FOLATE 18.0 8.6 - 58.9 NG/ML 03/16/2023 2:12 PM CDT [facility] 03/16/2023 9:01 AM CDT Vonda COBB-C LABORATORY Final Result Performing Organization Address City/[facility]/ZIP Co de Phone Number [facility] [address] [place] [address], [place] [phone] * FERRITIN (03/16/2023 9:01 AM CDT) FERRITIN 15.0 8.0 - 388.0 NG/ML 03/16/2023 2:16 PM CDT [facility] 03/16/2023 9:01 AM CDT Vonda CORRIGANC LABORATORY Final Result Performing Organization Address City/[facility]/ZIP Co de Phone Number [facility] [address] [place] [address], [place] [phone] * IRON SAT PANEL (IRON,IBC,%SAT) (03/16/2023 9:01 AM CDT) IRON 117 50 - 170 MCG/DL 03/16/2023 2:03 PM CDT [facility] IRON BINDING CAPACITY 435 250 - 450 MCG/DL 03/16/2023 2:03 PM CDT [facility] IRON SATURATION 27 20 - 55 % 2:03 PM CDT [facility] 03/16/2023 9:01 AM CDT us Vonda Loya PA-C LABORATORY Final Result [facility] [address] [place] [address], * (ABNORMAL) HEPATIC FUNCTION PANEL (03/16/2023 9:01 AM CDT) TOTAL PROTEIN S/P/B 7.1 6.4 - 8.2 G/DL 03/16/2023 2:16 PM CDT [facility] ALBUMIN S/P/B 4.3 3.4 - 5.0 G/DL 03/16/2023 2:16 PM CDT [facility] BILIRUBIN TOTAL S/P/B 0.6 0.2 - 1.2 MG/DL 03/16/2023 2:16 PM CDT [facility] BILIRUBIN DIRECT S/P/B 0.1 0.0 - 0.20 MG/DL 03/16/2023 2:16 PM CDT [facility] BILIRUBIN INDIRECT S/P/B 0.5 0.0 - 0.9 MG/DL 03/16/2023 2:16 PM CDT [facility] ALKALINE PHOSPHATASE S/P/B 96 50 - 136 U/L 03/16/2023 2:16 PM CDT [facility] AST 38(H) 15 - 37 U/L 03/16/2023 2:16 PM CDT [facility] ALT 85(H) 14 - 55 U/L 03/16/2023 2:16 PM CDT [facility] A/G RATIO 1.5 1.0 - 2.0 RATIO 03/16/2023 2:16 PM CDT [facility] 03/16/2023 9:01 AM CDT Vonda Loya PA-C LABORATORY Final Result [facility] [address] [place] [address], documented in this encounter Visit Diagnoses Diagnosis Elevated liver enzymes- Primary Nonspecific elevation of levels of transaminase or lactic acid dehydrogenase (LDH) Decreased hemoglobin Anemia, unspecified Elevated liver enzymes Nonspecific elevation of levels of transaminase or lactic acid dehydrogenase (LDH) documented in this encounter Care Teams Manager Acquisition Relationship Specialty Start Date End Date Vonda Loya PA-C [address] [place] [address] PCP - General PHYSICIAN SUPERVISOR PRINTING AND STAMPING 02/27/23 documented as of this encounter
--- OUTSIDE RECORDS SUMMARY | 2024-05-27 15:47 | XMS_ITS | Encounter Summary ---
Author Organization [facility] Address [address] [place] [address]. [place], [place] [address] [place] [address] Care Team Providers Care Tutoring Clinician Name Role Phone Lena Meyer PA-C Primary Care Provider [phone] Encounter Details Date Type Department Care Team (Latest Contact Info) Description 03/16/2023 12:28 PM CDT - 03/16/2023 11:59 PM CDT Hospital Encounter [facility] [address] [place], [place] [id number] Lena Meyer PA-C [address] [facility] [address] [place], [place] [phone] Discharge Disposition: Home or Self Care (Routine [...] - 8.2 G/DL 03/16/2023 2:16 PM CDT [facility] ALBUMIN S/P/B 4.3 3.4 - 5.0 G/DL 03/16/2023 2:16 PM CDT [facility] BILIRUBIN TOTAL S/P/B 0.6 0.2 - 1.2 MG/DL 03/16/2023 2:16 PM CDT [facility] BILIRUBIN DIRECT S/P/B 0.1 0.0 - 0.20 MG/DL 03/16/2023 2:16 PM T [facility] BILIRUBIN INDIRECT S/P/B 0.5 0.0 - 0.9 MG/DL 03/16/2023 2:16 PM CDT [facility] ALKALINE PHOSPHATASE S/P/B 96 50 - 136 U/L 03/16/2023 2:16 PM CDT [facility] AST 38(H) 15 - 37 U/L 03/16/2023 2:16 PM T [facility] ALT 85(H) 14 - 55 U/L 03/16/2023 2:16 PM CDT [facility] A/G RATIO 1.5 1.0 - 2.0 RATIO 03/16/2023 2:16 PM CDT [facility] 03/16/2023 9:01 AM CDT us Lena Meyer PA-C LABORATORY Final Result Performing Organization Address City/[facility]/ZIP Co de Phone Number [facility] [address] [place] [address], [place] [phone] * IRON SAT PANEL (IRON,IBC,%SAT) (03/16/2023 9:01 AM CDT) IRON 117 50 - 170 MCG/DL 03/16/2023 2:03 PM CDT [facility] IRON BINDING CAPACITY 435 250 - 450 MCG/DL 03/16/2023 2:03 PM CDT [facility] IRON SATURATION 27 20 - 55 % 2:03 PM CDT [facility] 03/16/2023 9:01 AM CDT us Lena Meyer PA-C LABORATORY Final Result Performing Organization Address City/[facility]/ZIP Co de Phone Number [facility] [address] [place] [address], [place] [phone] * FERRITIN (03/16/2023 9:01 AM CDT) FERRITIN 15.0 8.0 - 388.0 NG/ML 03/16/2023 2:16 PM CDT [facility] 03/16/2023 9:01 AM CDT us Lena Meyer PA-C LABORATORY Final Result Performing Organization Address City/[facility]/ZIP Co de Phone Number [facility] [address] [place] [address], [place] [phone] * VITAMIN B12 / FOLATE (03/16/2023 9:01 AM CDT) VITAMIN B12 S/P/B 632 193 - 986 PG/ML 03/16/2023 2:12 PM CDT [facility] FOLATE 18.0 8.6 - 58.9 NG/ML 03/16/2023 2:12 PM CDT [facility] 03/16/2023 9:01 AM CDT Lena Meyer PA-C LABORATORY Final Result Performing Organization Address City/[facility] Co de Phone Number [facility] [address] [place] [address], [place] [phone] documented in this encounter Visit Diagnoses Diagnosis Decreased hemoglobin Anemia, unspecified Elevated liver enzymes Nonspecific elevation of levels of transaminase or lactic acid dehydrogenase (LDH) documented in this encounter Care Teams Tutoring Clinician Relationship Specialty Start Date End Date Lena Meyer PA-C [address] [address] PCP - General PHYSICIAN DOPE DRY HOUSE OPERATOR 02/27/23 documented as of this encounter
--- OUTSIDE RECORDS SUMMARY | 2024-05-27 15:47 | XMS_ITS | Clinical Summary ---
Author Organization [facility] Address [address] [place] [address]. [place], [place] [address] [place] [address] Care Team Providers Care Stratigraphy Teacher Name Role Phone Lena Meyer PA-C Primary Care Provider [phone] Allergies No known active allergies Medications sertraline [...] patient's age to complete this topic Insurance [facility] Care Teams Stratigraphy Teacher Relationship Specialty Start Date End Date Lena Meyer PA-C [address] [facility] [address] [place] [phone] PCP - General PHYSICIAN PREVENTIVE MAINTENANCE ENGINEER 02/27/23
--- OUTSIDE RECORDS SUMMARY | 2024-05-27 15:47 | XMS_ITS | Encounter Summary ---
Author Organization [facility] Address [address] [place] [address]. [place] [id number] [place] [address] Care Team Providers Care Cashiers Bussers Food Runners Name Role Phone Lena Meyer PA-C Primary Care Provider [phone] Encounter Details Date Type Department Care Team (Late st Contact Info) Description 03/14/2023 9:40 AM CDT Laboratory Only [facility] Family & Internal Medicine [address] [phone] Lena Meyer PA-C [address] [place] [address] Social History Tobacco Use Types Packs/Day Years [...] disorders documented in this encounter Care Teams Cashiers Bussers Food Runners Relationship Specialty Start Date End Date Lena Meyer PA-C [address] [place] [address] PCP - General PHYSICIAN OPERATIONS ANALYST 02/27/23 documented as of this encounter
--- OUTSIDE RECORDS SUMMARY | 2024-05-27 15:47 | XMS_ITS | Encounter Summary ---
Author Organization [facility] Address [address] [place] [address]. [place], [place] [address] [place] [address] Care Team Providers Care Pocket And Pulley Machine Operator Name Role Phone Lena Meyer PA-C Primary Care Provider [phone] Encounter Details Date Type Department Care Team (Latest Contact Info) Description 03/14/2023 12:35 PM CDT - 03/14/2023 11:59 PM CDT Hospital Encounter [facility] [address] [place], [place] [phone] Lena Meyer PA-C [address] [facility] [address] [place], [place] [phone] Discharge Disposition: Home or Self Care (Routine [...] - 11.0 x10'3/uL 03/14/2023 12:50 PM CDT [facility] RBC 4.00(L) 4.50 - 5.10 x10'6/uL 03/14/2023 12:50 PM CDT [facility] HGB 11.4(L) 12.3 - 15.3 G/DL 03/14/2023 12:50 PM CDT [facility] HCT 36.9 35.9 - 44.6 % 03/14/2023 12:50 PM CDT [facility] MCV 92.3 80.0 - 96.0 FL 03/14/2023 12:50 PM CDT [facility] MCH 28.5 25.3 - 30.9 PG 03/14/2023 12:50 PM CDT [facility] MCHC 30.9(L) 31.0 - 34.1 G/DL 03/14/2023 12:50 PM CDT [facility] RDW 13.3 12.4 - 15.1 % 03/14/2023 12:50 PM CDT [facility] PLT 319 151 - 353 x10'3/uL 03/14/2023 12:50 PM T [facility] MPV 10.1 9.6 - 12.0 FL 03/14/2023 12:50 PM CDT [facility] RBC MORPHOLOGY NORMAL 03/14/2023 12:50 PM T [facility] PLT MORPH. NORMAL 03/14/2023 12:50 PM T [facility] WBC MORPHOLOGY NORMAL 03/14/2023 12:50 PM T [facility] LYMPHOCYTES % 35.4 15.8 - 45.0 % 03/14/2023 12:50 PM T [facility] NEUTROPHILS % 48.6 42.1 - 71.9 % 03/14/2023 12:50 PM T [facility] MONOCYTES % 12.0 5.7 - 12.5 % 03/14/2023 12:50 PM T [facility] EOSINOPHILS 3.2 0.0 - 5.6 % 03/14/2023 12:50 PM T [facility] BASOPHILS 0.6 0.0 - 1.3 % 03/14/2023 12:50 PM T [facility] ABS. NEUTROPHILS 2.60 1.40 - 6.00 x10'3/uL 03/14/2023 12:50 PM T [facility] IMMATURE GRANS % 0.2 0.0 - 0.5 % 03/14/2023 12:50 PM T [facility] ABS. LYMPHOCYTES 1.89 0.80 - 4.70 x10'3/uL 03/14/2023 12:50 PM T [facility] 03/14/2023 9:43 AM CDT us Lena Meyer PA-C LABORATORY Final Result [facility] [address] [place] [address], [place] [phone] * (ABNORMAL) COMPREHENSIVE METABOLIC PANEL (03/14/2023 9:43 AM CDT) Pathologist [facility] GLUCOSE 86 70 - 99 MG/DL 03/14/2023 1:35 PM CDT [facility] BUN 8 7 - 18 MG/DL 03/14/2023 1:35 PM CDT [facility] CREATININE S/P/B 0.55 0.55 - 1.02 MG/DL 03/14/2023 1:35 PM CDT [facility] SODIUM S/P/B 138 136 - 145 MMOL/L 03/14/2023 1:35 PM CDT [facility] POTASSIUM S/P/B 4.9 3.5 - 5.1 MMOL/L 03/14/2023 1:35 PM CDT [facility] CHLORIDE S/P/B 105 100 - 108 MMOL/L 03/14/2023 1:35 PM CDT [facility] CO2 27.0 21 - 32 MMOL/L 03/14/2023 1:35 PM CDT [facility] CALCIUM S/P/B 9.1 8.5 - 10.1 MG/DL 03/14/2023 1:35 PM CDT [facility] BILIRUBIN TOTAL S/P/B 0.5 0.2 - 1.2 MG/DL 03/14/2023 1:35 PM CDT [facility] TOTAL PROTEIN S/P/B 7.0 6.4 - 8.2 G/DL 03/14/2023 1:35 PM CDT [facility] ALBUMIN S/P/B 4.1 3.4 - 5.0 G/DL 03/14/2023 1:35 PM CDT [facility] AST 86(H) 15 - 37 U/L 03/14/2023 1:35 PM CDT [facility] ALT 128(H) 14 - 55 U/L 03/14/2023 1:35 PM CDT [facility] ALKALINE PHOSPHATASE S/P/B 99 50 - 136 U/L 03/14/2023 1:35 PM CDT [facility] ANION GAP 6.0 5 - 15 MMOL/L 03/14/2023 1:35 PM CDT [facility] BUN CREATININE RATIO 14.5 6 - 26 03/14/2023 1:35 PM T [facility] A/G RATIO 1.4 1.0 - 2.0 RATIO 03/14/2023 1:35 PM T [facility] GFR ESTIMATE >90 >90 ML/MIN/1.7 3 M2 03/14/2023 1:35 PM T [facility] Comment: NOTE: eGFR is not calculated for patients <18 years of age. This is an estimated GFR calculation using the new CKD EPI creatinine equation without race and so does not require a correction factor for race. This estimated GFR should not be used for calculating drug doses. 03/14/2023 9:43 AM CDT us Lena Meyer PA-C LABORATORY Final Result [facility] [address] [place] [address], [place] [phone] * TSH W/REFLEX (03/14/2023 9:43 AM CDT) TSH 0.696 0.358 - 3.74 uIU/ML 03/14/2023 1:35 PM CDT [facility] Comment: HIGH DOSES OF BIOTIN MAY INTERFERE WITH THIS TEST RESULT. CORRELATION TO CLINICAL HISTORY AND PRESENTATION RECOMMENDED. FREE T4 NOT INDICATED 03/14/2023 9:43 AM CDT Lena Meyer PA-C LABORATORY Final Result [facility] [address] [place] [address], * LIPID PANEL (03/14/2023 9:43 AM CDT) CHOLESTEROL 169 <200.0 MG/DL 03/14/2023 1:35 PM T [facility] TRIGLYCERIDES 40 <150 MG/DL 03/14/2023 1:35 PM [facility] HDL 79 >40.0 MG/DL 03/14/2023 1:35 PM T [facility] LDL (CALCULATED) 82 <100 MG/DL 03/14/20 1:35 PM [facility] NON HDL CHOLESTEROL 90 <130 MG/DL 03/14 1:35 PM T [facility] CHOL/HDL RATIO 2.1 0.0 - 4.5 03/14/2023 1:35 PM T [facility] VLDL CALCULATION 8 5 - 55 MG/DL 03/14/2023 1:35 PM T [facility] LIPID INTERPRETATION 03/14/2023 1:35 PM [facility] Comment: NIH CONCENSUS REPORT RECOMMENDATIONS: [...] PA-C LABORATORY Final Result Performing Organization Address City/State/[facility] Co de Phone Number [facility] [address] [place] [address], [place] [phone] documented in this encounter Visit Diagnoses Diagnosis Annual physical exam Routine general medical examination at a health care facility Screening, lipid Screening for lipoid disorders Screening for thyroid disorder Screening for diabetes mellitus Screening for deficiency anemia Screening for other and unspecified deficiency anemia documented in this encounter Care Teams Pocket And Pulley Machine Operator Relationship Specialty Start Date End Date Lena Meyer PA-C [address] [place] [address] PCP - General PHYSICIAN HOUSEKEEPING ASSOCIATE 02/27/23 documented as of this encounter
--- OUTSIDE RECORDS SUMMARY | 2024-05-27 15:47 | XMS_ITS | Encounter Summary ---
Author Organization [facility] Address [address] [place] [address]. [address] [address] Care Team Providers Care Tutor Name Role Phone Lena Meyer PA-C Primary [...] on filedocumented in this encounter Care Teams Tutor Relationship Specialty Start Date End Date Lena Meyer PA-C [address] [facility] [address] [place] [address] PCP - General PHYSICIAN CORE JAVA ENGINEER 02/27/23 documented as of this encounter
--- OUTSIDE RECORDS SUMMARY | 2024-05-27 15:47 | XMS_ITS | Encounter Summary ---
Author Organization [facility] Address [address] [place] [address]. [place] [address] Care Team Providers Care Tetryl Blender Operator Name Role Phone Vonda Loya PA-C Primary Care Provider [phone] Reason for Referral * Imaging (Routine) - Closed Specialty Diagnoses / Procedures Referred By Contac t Referred To Contact RADIOLOGY Diagnoses Elevated liver enzymes Procedures US ABD LIMITED Vonda Loya PA-C [address] [place] [address] Phone: tel: fax: Referral ID Status Reason Start Date Expiration Date Visits Re quested Visits Authorized [id number] Closed 03/14/2023 03/14/2024 1 1 ER OPERATOR Reason for Visit * Imaging (Routine) - Closed Specialty Diagnoses / Procedures Referred By Contac t Referred To Contact RADIOLOGY Diagnoses Elevated liver enzymes Procedures US ABD LIMITED Vonda Loya PA-C [address] [place] [address] Phone: tel: fax: Referral ID Status Reason Start Date Expiration Date Visits Re quested Visits Authorized [id number] Closed 03/14/2023 03/14/2024 1 1 Encounter Details Date Type Department Care Team (Latest Contact Info) Description 04/11/2023 10:00 AM CROZER OPERATOR - 04/11/2023 11:59 PM CROZER OPERATOR Hospital Encounter [facility] Ultrasound [address] [facility] [place] [place] [address] Vonda Loya PA-C [address] [place] [address] Discharge Disposition: Home or Self Care (Routine [...] Pt told results of US. Pt v/u ER OPERATOR documented in this encounter Plan of Treatment Not on file documented as of this encounter Procedures Procedure Name Priority Date/Time Associated Diagnosis Comments US ABD LIMITED Routine 04/11/2023 10:47 AM CROZER OPERATOR Elevated liver enzymes documented in this encounter Results * US ABD LIMITED (04/11/2023 10:47 AM CROZER OPERATOR) Anatomical Region Laterality Modality Abdomen Ultrasound 04/11/2023 1:17 PM CROZER OPERATOR Impressions 04/11/2023 1:20 PM CROZER OPERATOR IMPRESSION: 1. ??Mild fatty liver without focal mass. Ordered By: VONDA LOYA Interpreted By: Nato Johnson, 04/11/2023 1:17 PM Narrative 04/11/2023 1:20 PM CROZER OPERATOR IMAGING STUDIES: ??US ABD LIMITED ? [...] bile duct measures.4.5 mm. 3. ??Right kidney gwzahmbu74.9 x 4.4 x 5.0 cm. No focal [...] bile duct measures.4.5 mm. 3. Right kidney xegkonoc89.9 x 4.4 x 5.0 cm. No focal mass orhydronephrosis. 4. Partially visualized pancreas without gross abnormality. IMPRESSION: 1. Mild fatty liver without focal mass. Ordered By: VONDA LOYA Interpreted By: Ntao Johnson, 04/11/2023 1:17 PM Vonda Loya [place]-C ULTRASOUND Final Result documented in this encounter Visit Diagnoses Diagnosis Elevated liver enzymes Nonspecific elevation of levels of transaminase or lactic acid dehydrogenase (LDH) documented in this encounter Care Teams Tetryl Blender Operator Relationship Specialty Start Date End Date Vonda Loya, GUERA [address] [facility] [address] [place] [address] PCP - General PHYSICIAN CORPORATE COMMUNICATIONS SPECIALIST 02/27/23 documented as of this encounter
--- OUTSIDE RECORDS SUMMARY | 2024-05-27 15:47 | XMS_ITS | Encounter Summary ---
Author Organization [facility] Address [address] [place] [address]. [place] [id number] [place] [address] Care Team Providers Care Automotive Alignment Specialist Name Role Phone Lena Meyer PA-C Primary Care Provider [phone] Encounter Details Date Type Department Care Team (Late st Contact Info) Description 05/03/2023 PF Changs Message Enc [facility] Medical Group Family & Internal Medicine [address] [address] Lena Meyer PA-C [address] [place] [address] [facility] Social History Tobacco Use Types Packs/Day [...] PM CST Patient aware and voiced understanding HOUSE OPERATOR * Lena Meyer PA-C - 05/03/2023 9:51 AM CST With her kids having pinkeye, I did send in some antibiotic drops to the pharmacy. If symptoms do not improve she will need to be seen. Thank you! HOUSE OPERATOR * Harriet Wolff RN - 05/03/2023 9:45 AM CST Please advise. HOUSE OPERATOR documented in this encounter Plan of Treatment Not on file documented as of this encounter Visit Diagnoses Diagnosis Acute bacterial conjunctivitis of both eyes- Primary documented in this encounter Care Teams Automotive Alignment Specialist Relationship Specialty Start Date End Date Lena Meyer PA-C [address] [address] PCP - General PHYSICIAN PRODUCT MARKETING EXECUTIVE 02/27/23 documented as of this encounter
--- OUTSIDE RECORDS SUMMARY | 2024-05-27 15:47 | XMS_ITS | Encounter Summary ---
Author Organization [facility] Address [address] [place] [address]. [address] [address] Care Team Providers Care Flumer Name Role Phone Lena Meyer PA-C Primary [...] on filedocumented in this encounter Care Teams Flumer Relationship Specialty Start Date End Date Lena Meyer PA-C [address] [facility] [address] [place] [address] PCP - General PHYSICIAN BALANCE TRUER 02/27/23 documented as of this encounter
--- OUTSIDE RECORDS SUMMARY | 2024-05-27 15:47 | XMS_ITS | Encounter Summary ---
Author Organization [facility] Address [address] [place] [address]. [address] [address] Care Team Providers Care Teacher Of The Emotionally Disturbed Name Role Phone Lena Meyer PA-C Primary [...] on filedocumented in this encounter Care Teams Teacher Of The Emotionally Disturbed Relationship Specialty Start Date End Date Lena Meyer PA-C [address] [facility] [address] [place] [address] PCP - General PHYSICIAN HAND OUTSIDE CUTTER 02/27/23 documented as of this encounter
--- OUTSIDE RECORDS SUMMARY | 2024-05-27 15:48 | XMS_ITS | Encounter Summary ---
Author Organization [facility] Address [address] [place] [address]. [place] [address] Care Team Providers Care Literacy Consultant Name Role Phone David Ross MD Primary Care Provider Unavailable Encounter Details Date Type Department Care Team (Latest Contact Info) Description 08/01/2016 Abstract [facility] Social History Tobacco Use Types [...] on filedocumented in this encounter Care Teams Literacy Consultant Relationship Specialty Start Date End Date David Ross MD PCP - General 07/31/16 documented as of this encounter
--- OUTSIDE RECORDS SUMMARY | 2024-05-27 15:48 | XMS_ITS | Encounter Summary ---
Author Organization [facility] Address [address] [place] [address]. [place], [place] [address] [place] [address] Care Team Providers Care Chimney Supervisor Brick Name Role Phone , Generic Conversion Primary Care Provider Unavailable Encounter Details Date Type Department Care Team (Late st Contact Info) Description 07/31/[address] [address] Hayley Hardy, CHINYERE Social History [...] A & B STAT 07/31/2016 4:00 PM HAM STRIPPER documented in this encounter Results * (ABNORMAL) INFLUENZA A & B (07/31/2016 4:00 PM HAM STRIPPER) SPECIMEN TYPE NASAL 07/31/2016 5:02 PM HAM STRIPPER [facility] INFLUENZA A POSITIVE(A) NEGATIVE 07/31/2016 5:05 PM HAM STRIPPER [facility] Comment: TESTING PERFORMED AT [facility] [address] [place] [address] JUANA WALLS M.D., BOOTMAKER HAND INFLUENZA B NEGATIVE NEGATIVE 07/31/2016 5:05 PM HAM STRIPPER [facility] Comment: Interpretation: Positive for Influenza Type A. This test can not distinguish influenza A virus subtypes. For example, this test cannot distinguish influenza infections caused by novel influenza A viruses versus seasonal influenza A viruses. 07/31/2016 4:00 PM HAM STRIPPER 07/31/2016 5:02 PM HAM STRIPPER us Generic Conversion Md LOPEZ MICROBIOLOGY - GENERAL ORDERABLES Final Result [facility] [address] [place] [address], [place] [phone] documented in this encounter Visit Diagnoses Diagnosis Other specified diseases and conditions complicating , childbirth and the puerperium documented in this encounter Care Teams Chimney Supervisor Brick Relationship Specialty Start Date End Date David Lopez MD PCP - General 07/31/16 documented as of this encounter
--- OUTSIDE RECORDS SUMMARY | 2024-05-27 15:48 | XMS_ITS | Encounter Summary ---
Author Organization [facility] Address [address] [place] [address]. [address] [address] Care Team Providers Care Vocational Auto Body Instructor Name Role Phone Vonda Loya PA-C Primary Care Provider [phone] Reason for Visit * Reason Comments New Patient Here to get establis hed. Encounter Details Date Type Department Care Team (Late st Contact Info) Description 03/14/2023 9:00 AM CDT Office Visit [facility] Family & Internal Medicine [facility] [id number] [place] [phone] Vonda Loya PA-C [address] [place] [address] New Patient (Here to get established. [...] migraines. Has never been on preventative medicine. CABANA ATTENDANT tried estrogen patch which did not help. [...] Cervical cancer screening: Follows with gynecology in [place] yearly. Up-to-date Colonoscopy: Did have a colonoscopy [...] (Generalized Anxiety Disorder) Screening 03/14/2023 9:16 AM SRINIVASA-7 Feeling nervous, anxious, or on edge 0 [...] Portions of this note were dictated using ESCAPESwith[employer] speech recognition software. Occasional wrong wordor sound-alike [...] CHOLESTEROL 169 <200.0 MG/DL 03/14/2023 1:35 PM [facility] TRIGLYCERIDES 40 <150 MG/DL 03/14/2023 1:35 PM [facility] HDL 79 >40.0 MG/DL 03/14/2023 1:35 PM [facility] LDL (CALCULATED) 82 <100 MG/DL 03/14/20 1:35 PM T [facility] NON HDL CHOLESTEROL 90 <130 MG/DL 03/14 1:35 PM [facility] CHOL/HDL RATIO 2.1 0.0 - 4.5 03/14/2023 1:35 PM [facility] VLDL CALCULATION 8 5 - 55 MG/DL 03/14/2023 1:35 PM [facility] LIPID INTERPRETATION 03/14/2023 1:35 PM [facility] Comment: [facility] REPORT RECOMMENDATIONS: ?ADULT ?CHILD ??LOW RISK: [...] PA-C LABORATORY Final Result Performing Organization Address [facility] de Phone Number [facility] [id number] [place] [address], [place] [phone] * TSH W/REFLEX (03/14/2023 9:43 AM CDT) [facility] TSH 0.696 0.358 - 3.74 uIU/ML 03/14/2023 1:35 PM CDT [facility] Comment: HIGH DOSES OF BIOTIN MAY INTERFERE WITH THIS TEST RESULT. CORRELATION TO CLINICAL HISTORY AND PRESENTATION RECOMMENDED. FREE T4 NOT INDICATED 03/14/2023 9:43 AM CDT Vonda Loya PA-C LABORATORY Final Result Performing Organization Address [facility] de Phone Number [facility] [address] [place] [address], [place] [phone] * (ABNORMAL) COMPREHENSIVE METABOLIC PANEL (03/14/2023 9:43 AM CDT) [facility] GLUCOSE 86 70 - 99 MG/DL 03/14/2023 1:35 PM [facility] BUN 8 7 - 18 MG/DL 03/14/2023 1:35 PM [facility] CREATININE S/P/B 0.55 0.55 - 1.02 MG/DL 03/14/2023 1:35 PM [facility] SODIUM S/P/B 138 136 - 145 MMOL/L 03/14/2023 1:35 PM [facility] POTASSIUM S/P/B 4.9 3.5 - 5.1 MMOL/L 03/14/2023 1:35 PM [facility] CHLORIDE S/P/B 105 100 - 108 MMOL/L 03/14/2023 1:35 PM [facility] CO2 27.0 21 - 32 MMOL/L 03/14/2023 1:35 PM [facility] CALCIUM S/P/B 9.1 8.5 - 10.1 MG/DL 03/14/2023 1:35 PM [facility] BILIRUBIN TOTAL S/P/B 0.5 0.2 - 1.2 MG/DL 03/14/2023 1:35 PM [facility] TOTAL PROTEIN S/P/B 7.0 6.4 - 8.2 G/DL 03/14/2023 1:35 PM [facility] ALBUMIN S/P/B 4.1 3.4 - 5.0 G/DL 03/14/2023 1:35 PM [facility] AST 86(H) 15 - 37 U/L 03/14/2023 1:35 PM [facility] ALT 128(H) 14 - 55 U/L 03/14/2023 1:35 PM T [facility] ALKALINE PHOSPHATASE S/P/B 99 50 - 136 U/L 03/14/2023 1:35 PM CDT [facility] ANION GAP 6.0 5 - 15 MMOL/L 03/14/2023 1:35 PM CDT [facility] BUN CREATININE RATIO 14.5 6 - 26 03/14/2023 1:35 PM CDT [facility] A/G RATIO 1.4 1.0 - 2.0 RATIO 03/14/2023 1:35 PM CDT [facility] GFR ESTIMATE >90 >90 ML/MIN/1.7 3 M2 03/14/2023 1:35 PM CDT [facility] Comment: NOTE: eGFR is not calculated for patients <18 years of age. This is an estimated GFR calculation using the new CKD EPI creatinine equation without race and so does not require a correction factor for race. This estimated GFR should not be used for calculating drug doses. 03/14/2023 9:43 AM CDT us Vonda Loya PA-C LABORATORY Final Result [facility] [address] [place] [address], * (ABNORMAL) CBC W/DIFF AUTOMATED (03/14/2023 9:43 AM CDT) WBC 5.34 4.4 - 11.0 x10'3/uL 03/14/2023 12:50 PM CDT [facility] RBC 4.00(L) 4.50 - 5.10 x10'6/uL 03/14/2023 12:50 PM CDT [facility] HGB 11.4(L) 12.3 - 15.3 G/DL 03/14/2023 12:50 PM CDT [facility] HCT 36.9 35.9 - 44.6 % 03/14/2023 12:50 PM CDT [facility] MCV 92.3 80.0 - 96.0 FL 03/14/2023 12:50 PM CDT [facility] MCH 28.5 25.3 - 30.9 PG 03/14/2023 12:50 PM CDT [facility] MCHC 30.9(L) 31.0 - 34.1 G/DL 03/14/2023 12:50 PM CDT [facility] RDW 13.3 12.4 - 15.1 % 03/14/2023 12:50 PM CDT [facility] PLT 319 151 - 353 x10'3/uL 03/14/2023 12:50 PM CDT [facility] MPV 10.1 9.6 - 12.0 FL 03/14/2023 12:50 PM CDT [facility] RBC MORPHOLOGY NORMAL 03/14/2023 12:50 PM CDT [facility] PLT MORPH. NORMAL 03/14/2023 12:50 PM CDT [facility] WBC MORPHOLOGY NORMAL 03/14/2023 12:50 PM CDT [facility] LYMPHOCYTES % 35.4 15.8 - 45.0 % 03/14/2023 12:50 PM CDT [facility] NEUTROPHILS % 48.6 42.1 - 71.9 % 03/14/2023 12:50 PM CDT [facility] MONOCYTES % 12.0 5.7 - 12.5 % 03/14/2023 12:50 PM CDT [facility] EOSINOPHILS 3.2 0.0 - 5.6 % 03/14/2023 12:50 PM CDT [facility] BASOPHILS 0.6 0.0 - 1.3 % 03/14/2023 12:50 PM CDT [facility] ABS. NEUTROPHILS 2.60 1.40 - 6.00 x10'3/uL 03/14/2023 12:50 PM CDT [facility] IMMATURE GRANS % 0.2 0.0 - 0.5 % 03/14/2023 12:50 PM CDT [facility] ABS. LYMPHOCYTES 1.89 0.80 - 4.70 x10'3/uL 03/14/2023 12:50 PM CDT [facility] 03/14/2023 9:43 AM CDT us Vonda Loya PA-C LABORATORY Final Result [facility] [address] [place] [address], documented in this encounter Visit Diagnoses Diagnosis [...] diseases documented in this encounter Care Teams Vocational Auto Body Instructor Relationship Specialty Start Date End Date Vonda Loya PA-C [address] [place] [address] PCP - General PHYSICIAN DIRECTOR OF HOTEL 02/27/23 documented as of this encounter
--- OUTSIDE RECORDS SUMMARY | 2024-05-27 15:48 | XMS_ITS | Encounter Summary ---
Author Organization [facility] Address [address] [place] [address]. [place], [place] [address] [place] [address] Care Team Providers Care Coil Former Name Role Phone Md, Generic Conversion Primary Care Provider Unavailable Md, Generic Conversion Primary Care Provider Unavailable Md, Generic Conversion MD Primary Care Provider Unavailable Reason for Visit * Reason Comments ECG (SCAN) Lab (SCAN) Encounter Details Date Type Department Care Team ([facility] Contact Info) Description 03/26/2014 Scan HEALTH [...] on filedocumented in this encounter Care Teams Coil Former Relationship Specialty Start Date End Date Md Generic ConversionMD PCP - General 07/31/16 Md Generic ConversionMD PCP - General 03/16/16 Md Generic ConversionMD PCP - General 07/23/1203/15 documented as of this encounter
--- OUTSIDE RECORDS SUMMARY | 2024-05-27 15:48 | XMS_ITS | Encounter Summary ---
Author Organization [facility] Address [address] [place] [address]. [address] [address] Care Team Providers Care Thread Grinder Tool Name Role Phone Md Generic Lakeisha LOPEZ [...] on filedocumented in this encounter Care Teams Thread Grinder Tool Relationship Specialty Start Date End Date David Lopez MD PCP - General 07/31/16 David Lopez MD PCP - General 03/16/16 David Lopez MD PCP - General 07/23/1203/15 documented as of this encounter
--- OUTSIDE RECORDS SUMMARY | 2024-05-27 15:48 | XMS_ITS | Encounter Summary ---
Author Organization [facility] Address [facility]. [place], [place] [address] [place] [address] Care Team Providers Care Director Of Primary Name Role Phone Md Generic Conversion Primary Care Provider Unavailable Md Generic Conversion Primary Care Provider Unavailable Md Generic Conversion Primary Care Provider Unavailable Md Generic Conversion Primary Care Provider Unavailable Encounter Details Date Type Department Care Team (Late st Contact Info) Description 07/10/2012 Abstract [facility] [address] [facility] [place] [address] Shiloh Schafer MD [address] [address] Social History Tobacco Use Types [...] bronchitis documented in this encounter Care Teams Director Of Primary Relationship Specialty Start Date End Date David Ross ConversionMD PCP - General 07/31/16 Md Generic ConversionMD PCP - General 03/16/16 Md Generic ConversionMD PCP - General 07/23/1203/15 Md Generic ConversionMD PCP - General 07/10/12 documented as of this encounter
--- OUTSIDE RECORDS SUMMARY | 2024-05-27 15:48 | XMS_ITS | Encounter Summary ---
Author Organization [facility] Address [address] [place] [address]. [place] [address] Care Team Providers Care Assembler Equipment Name Role Phone Md Generic Lakeisha LOPEZ [...] on filedocumented in this encounter Care Teams Assembler Equipment Relationship Specialty Start Date End Date David Lopez MD PCP - General 07/31/16 David Lopez MD PCP - General 03/16/16 David Lopez MD PCP - General 07/23/1203/15 documented as of this encounter
--- OUTSIDE RECORDS SUMMARY | 2024-05-27 15:48 | XMS_ITS | Encounter Summary ---
Author Organization [facility] Address [address] [place] [address]. [place] [address] Care Team Providers Care Commercial Marketing Specialist Name Role Phone Md Generic Lakeisha LOPEZ [...] on filedocumented in this encounter Care Teams Commercial Marketing Specialist Relationship Specialty Start Date End Date David Lopez MD PCP - General 07/31/16 David Lopez MD PCP - General 03/16/16 David Lopez MD PCP - General 07/23/1203/15 documented as of this encounter
--- OUTSIDE RECORDS SUMMARY | 2024-05-27 15:48 | XMS_ITS | Encounter Summary ---
Author Organization [facility] Address [facility]. [place], [place] [address] [place] [address] Care Team Providers Care Steam Plant Operator Name Role Phone Md Generic Conversion Primary Care Provider Unavailable Md Generic Conversion Primary Care Provider Unavailable Md Generic Conversion Primary Care Provider Unavailable Encounter Details Date Type Department Care Team (Late st Contact Info) Description 07/23/2012 Abstract [facility] [address] [facility] [place], [place] [id number] Randall Meade MD [address] [place] [address] Social History Tobacco Use Types [...] bronchitis documented in this encounter Care Teams Steam Plant Operator Relationship Specialty Start Date End Date Md Generic MD Lakeisha PCP - General 07/31/16 David Ross MD PCP - General 03/16/16 David Ross MD PCP - General 07/23/1203/15 documented as of this encounter
--- OUTSIDE RECORDS SUMMARY | 2024-05-27 15:48 | XMS_ITS | Encounter Summary ---
Author Organization [facility] Address [address] [place] [address]. [address] [address] Care Team Providers Care Forest Practices Field Coordinator Name Role Phone Unavailable Primary Care Provider [...]
--- OUTSIDE RECORDS SUMMARY | 2024-05-27 15:48 | XMS_ITS | Encounter Summary ---
Author Organization [facility] Address [address] [place] [address]. [place] [address] Care Team Providers Care Bookstore Clerk Name Role Phone Unavailable Primary Care [...]
--- OUTSIDE RECORDS SUMMARY | 2024-05-27 15:48 | XMS_ITS | Encounter Summary ---
Author Organization [facility] Address [address] [place] [address]. [place] [address] Care Team Providers Care Tunnel Elastic Operator Lockstitch Name Role Phone Unavailable Primary Care Provider [...]
--- OUTSIDE RECORDS SUMMARY | 2024-05-27 15:48 | XMS_ITS | Encounter Summary ---
Author Organization [facility] Address [address] [place] [address]. [place], [place] [address] [place] [address] Care Team Providers Care Coal Bagger Name Role Phone David Ross MD Primary Care Provider Unavailable Encounter Details Date Type Department Care Team (Late st Contact Info) Description 04/08/2017 [place] [address] David Ross MD Social History Tobacco Use [...] on filedocumented in this encounter Care Teams Coal Bagger Relationship Specialty Start Date End Date David Ross MD PCP - General 07/31/16 documented as of this encounter
--- OUTSIDE RECORDS SUMMARY | 2024-05-27 15:48 | XMS_ITS | Encounter Summary ---
Author Organization [facility] Address [address] [place] [address]. [place] [address] Care Team Providers Care Estimator Printing Name Role Phone Unavailable Primary Care Provider [...]
--- OUTSIDE RECORDS SUMMARY | 2024-05-27 15:48 | XMS_ITS | Encounter Summary ---
Author Organization [facility] Address [address] [place] [address]. [place], [place] [address] [place] [address] Care Team Providers Care Gaming Manager Name Role Phone Md, Generic Conversion Primary Care Provider Unavailable Md, Generic Conversion Primary Care Provider Unavailable Encounter Details Date Type Department Care Team (Late st Contact Info) Description 03/16/2016 Abstract [facility] [address] [place], [place] [id number] Livan Mo, HANNAH [address] [facility] [address] [place], [place] [address] Social History Tobacco Use Types Packs/Day Years [...] SPEC DESCRIPTION THROAT 03/16/2016 12:11 PM CDT [facility] SPECIAL REQUESTS NO SPECIAL REQUEST 03/16/2016:11 PM CDT [facility] CULTURE RESULT NO STREPTOCOCCUS PYOGENES (GROUP A) ISOLATED 03/18/2016 2:52 PM CDT [facility] THROAT SWAB / Unknown 03/16/2016 11:51 AM CDT 03/16/2016 12:11 PM CDT us Generic Conversion Md LOPEZ MICROBIOLOGY - GENERAL ORDERABLES Final Result Performing Organization Address [facility] Co de Phone Number [facility] [address] [place] [address], [place] [phone] * RAPID STREP A (03/16/2016 11:51 AM CDT) SPECIMEN TYPE THROAT 03/16/2016 11:51 AM CDT [facility] RAPID STREP TEST NEGATIVE NEGATIVE 03/16/2016 12:10 PM CDT [facility] Comment: TESTING PERFORMED AT [facility] [address] [place] [address] JUANA WALLS M.D., MANAGER NON PROFIT THROAT SWAB / Unknown 03/16/2016 11:51 AM CDT 03/16/2016 12:04 PM CDT us Generic Conversion Md LOPEZ MICROBIOLOGY - GENERAL ORDERABLES Final Result Performing Organization Address [facility] Co de Phone Number [facility] [address] [place] [address], [place] [phone] documented in this encounter Visit Diagnoses Diagnosis Acute pharyngitis documented in this encounter Care Teams Gaming Manager Relationship Specialty Start Date End Date David Lopez MD PCP - General 07/31/16 David Lopez MD PCP - General 03/16/16 documented as of this encounter
--- OUTSIDE RECORDS SUMMARY | 2024-05-27 15:48 | XMS_ITS | Encounter Summary ---
Author Organization [facility] Address [address] [place] [address]. [place] [address] Care Team Providers Care Abstract Writer Name Role Phone Unavailable Primary Care [...]
--- OUTSIDE RECORDS SUMMARY | 2024-05-27 15:48 | XMS_ITS | Encounter Summary ---
Author Organization [facility] Address [address] [place] [address]. [place] [address] Care Team Providers Care Digital Associate Name Role Phone Unavailable Primary Care Provider [...]
--- OUTSIDE RECORDS SUMMARY | 2024-05-27 15:48 | XMS_ITS | Encounter Summary ---
Author Organization [facility] Address [address] [place] [address]. [place] [address] Care Team Providers Care Combat Systems Operator Mine Warfare Name Role Phone Unavailable Primary Care Provider [...]
--- OUTSIDE RECORDS SUMMARY | 2024-05-27 15:48 | XMS_ITS | Encounter Summary ---
Author Organization [facility] Address [address] [place] [address]. [place] [address] Care Team Providers Care Roll Icer Name Role Phone David Ross MD Primary [...] on filedocumented in this encounter Care Teams Roll Icer Relationship Specialty Start Date End Date David Ross MD PCP - General 07/31/16 documented as of this encounter
--- OUTSIDE RECORDS SUMMARY | 2024-05-27 15:48 | XMS_ITS | Encounter Summary ---
Author Organization [facility] Address [address] [place] [address]. [place], [place] [address] [place] [address] Care Team Providers Care Sales Development Specialist Name Role Phone Md Generic Conversion Primary Care Provider Unavailable Md Generic Conversion Primary Care Provider Unavailable Md Generic Lakeisha LOPEZ Primary Care Provider Unavailable Md Generic Conversion Primary Care Provider Unavailable Md Generic Conversion Primary Care Provider Unavailable Encounter Details Date Type Department Care Team (Late st Contact Info) Description 05/07/2012 Emergency [facility] [place] [address] Jerson Oropeza MD [address] [place] [address] [place] [address] Social History Tobacco Use Types [...] quadrant documented in this encounter Care Teams Sales Development Specialist Relationship Specialty Start Date End Date David Lopez MD PCP - General 07/31/16 Md Generic ConversionMD PCP - General 03/16/16 Md Generic MD Lakeisha PCP - General 07/23/1203/15 Md Generic MD Lakeisha PCP - General 07/10/12 Md Generic ConversionMD PCP - General 05/07/12 3 documented as of this encounter
--- OUTSIDE RECORDS SUMMARY | 2024-05-27 15:48 | XMS_ITS | Encounter Summary ---
Author Organization [facility] Address [address] [place] [address]. [place] [address] Care Team Providers Care Cyber Security Consultant Name Role Phone Md Generic Lakeisha LOPEZ [...] on filedocumented in this encounter Care Teams Cyber Security Consultant Relationship Specialty Start Date End Date David Lopez MD PCP - General 07/31/16 David Lopez MD PCP - General 03/16/16 David Lopez MD PCP - General 07/23/1203/15 documented as of this encounter
--- OUTSIDE RECORDS SUMMARY | 2024-05-27 15:48 | XMS_ITS | Encounter Summary ---
Author Organization [facility] Address [address] [place] [address]. [place], [place] [address] [place] [address] Care Team Providers Care Spud Sorter Name Role Phone Md, Generic Conversion Primary Care Provider Unavailable Md, Generic Conversion Primary Care Provider Unavailable Md, Generic Conversion Primary Care Provider Unavailable Reason for Visit * Reason Comments Generic Orders (SCAN) Encounter Details Date Type Department Care Team ([facility] Contact Info) Description 05/15/2014 Scan HEALTH [...] Procedure Name Priority Date/Time Associated Diagnosis Comments LOG POND WORKER 05/15/2014 LOG POND WORKER 05/15/2014 documented in this encounter Results * LOG POND WORKER (05/15/2014) 05/15/2014 Narrative 05/15/2014 Ordered by an unspecified provider. us Documents Scanned SCANNING Final Result * LOG POND WORKER (05/15/2014) 05/15/2014 Narrative 05/15/2014 Ordered by an unspecified provider. us Documents Scanned SCANNING Final Result documented in this encounter Visit Diagnoses Not on filedocumented in this encounter Care Teams Spud Sorter Relationship Specialty Start Date End Date Md Generic Conversion, PCP - General 07/31/16 Md Generic Conversion, PCP - General 03/16/16 Md Generic Conversion, PCP - General 07/23/1203/15 documented as of this encounter
--- OUTSIDE RECORDS SUMMARY | 2024-05-27 15:48 | XMS_ITS | Encounter Summary ---
Author Organization [facility] Address [address] [place] [address]. [place] [address] Care Team Providers Care Cloth Shrinking Machine Operator Name Role Phone Md Generic Lakeisha [...] on filedocumented in this encounter Care Teams Cloth Shrinking Machine Operator Relationship Specialty Start Date End Date David Lopez MD PCP - General 07/31/16 David Lopez MD PCP - General 03/16/16 David Lopez MD PCP - General 07/23/1203/15 documented as of this encounter
--- OUTSIDE RECORDS SUMMARY | 2024-05-27 15:48 | XMS_ITS | Encounter Summary ---
Author Organization [facility] [place] Address [facility] [place] [address] Care Team Providers Care Fender Repairer Name Role Phone Md Generic Conversion Primary Care Provider Unavailable Md Generic Conversion Primary Care Provider Unavailable Md Generic Conversion Primary Care Provider Unavailable Md Generic Conversion Primary Care Provider Unavailable Md Generic Conversion Primary Care Provider Unavailable Encounter Details Date Type Department Care Team (Latest Contact Info) Description 11/03/2005 Scan [facility] Scanned, Documents Social History Tobacco Use [...] on filedocumented in this encounter Care Teams Fender Repairer Relationship Specialty Start Date End Date Md Generic ConversionMD PCP - General 07/31/16 Md Generic ConversionMD PCP - General 03/16/16 Md Generic ConversionMD PCP - General 07/23/1203/15 Md Generic ConversionMD PCP - General 07/10/12 Md Generic ConversionMD PCP - General 05/07/12 3 documented as of this encounter
--- OUTSIDE RECORDS SUMMARY | 2024-05-27 15:48 | XMS_ITS | Encounter Summary ---
Author Organization [facility] Address [address] [place] [address]. [place] [address] Care Team Providers Care Time Clock Mechanic Name Role Phone Md Generic Lakeisha LOPEZ [...] on filedocumented in this encounter Care Teams Time Clock Mechanic Relationship Specialty Start Date End Date David Lopez MD PCP - General 07/31/16 David Lopez MD PCP - General 03/16/16 David Lopez MD PCP - General 07/23/1203/15 documented as of this encounter
--- OUTSIDE RECORDS SUMMARY | 2024-05-27 15:48 | XMS_ITS | Encounter Summary ---
Author Organization [facility] Address [address] [place] [address]. [place] [address] Care Team Providers Care Inspector Circuitry Negative Name Role Phone David Ross MD Primary [...] on filedocumented in this encounter Care Teams Inspector Circuitry Negative Relationship Specialty Start Date End Date David Ross MD PCP - General 07/31/16 David Ross MD PCP - General 03/16/16 documented as of this encounter
--- OUTSIDE RECORDS SUMMARY | 2024-05-27 15:48 | XMS_ITS | Encounter Summary ---
Author Organization [facility] Address [address] [place] [address]. [place] [address] Care Team Providers Care Auto Parts Manager Name Role Phone Md Generic Lakeisha [...] on filedocumented in this encounter Care Teams Auto Parts Manager Relationship Specialty Start Date End Date David Lopez MD PCP - General 07/31/16 David Lopez MD PCP - General 03/16/16 David Lopez MD PCP - General 07/23/1203/15 documented as of this encounter
--- OUTSIDE RECORDS SUMMARY | 2024-05-27 15:51 | XMS_ITS | Encounter Summary ---
Author Organization [facility] Address [address] [place] [address] Care Team Providers Care Chimney Mechanic Name Role Phone Unavailable Primary Care Provider Unavailabl e Reason for Visit * Auth/Cert Specialty Diagnoses / Procedures Referred By Contac t Referred To Contact Obstetrics Diagnoses EDC: 07/15/20 Repeat Classical Procedures SECTION [facility] [address] [place] [address] Referral ID Status Reason Start Date Expiration Date Visits Re quested Visits Authorized [id number] 1 1 Encounter Details Date Type Department Care Team (Late st Contact Info) Description 06/19/2020 7:28 AM SUPERVISOR BRIAR SHOP Anesthesia Event [facility] & [address] [place] [address] Micheline Carter MD [address] [facility] [address] [place] [address] Georgie Hebert, CURRY [address] [facility] [place] [address] Anesthesia Record Procedure Summary Procedure [...] COVID-19? No / Unsure 06/19/2020 5:36 AM SUPERVISOR BRIAR SHOP documented as of this encounter OR Notes [...] Score: 20 (06/19/20 1000) Ely Murray MD [employer]IS[employer]OP * Anesthesia Handoff - Georgie Hebert CRNA - 06/19/2020 8:38 AM SUPERVISOR [employer]RIAR SHOP Post-Anesthetic transfer of care report elements to [...] 8:33 AM) 8:38 AM Georgie Hebert CRNA [employer] * Anesthesia Procedure Notes - Georgie Hebert [...] oximetry and Non-invasive blood pressure Approach: Midline [place] Identification: palpation technique Number of Attempts: 1 [...] Assessment Outcome: A full evaluation is pending [employer] * Anesthesia Preprocedure Evaluation - Micheline Carter [...] to blood products. Plan discussed with Nurse Drum Drier Operator. Post-op Pain Control Plan to use Epidural [...] answered. Patient understands and wishes to proceed. RVISOR BRIAR SHOP documented in this encounter Plan of Treatment Upcoming Encounters Date Type Department Care Team (Late st Contact Info) Description 10/08/2024 9:45 AM CDT Office Visit [facility] FLY RAISER LOCKSTITCH - [facility] [address] [address] [address] Terrie Manning MD [address] [facility] [address] [place] [address] documented as of this encounter Procedures Procedure Name Priority Date/Time Associated Diagnosis Comments MI ANESTHESIA BLOCK PB PLACEHOLDER CHARGE Routine 06/19/2020 7:48 AM SUPERVISOR BRIAR SHOP documented in this encounter Results * MI ANESTHESIA BLOCK PB PLACEHOLDER CHARGE (06/19/2020 7:48 AM SUPERVISOR BRIAR SHOP) Narrative Georgie Hebert CRNA - 06/19/2020 7:48 AM SUPERVISOR BRIAR SHOP Georgie Hebert CRNA ? 06/19/2020 ??7:48 AM [...] oximetry and Non-invasive blood pressure Approach: Midline [place] Identification: palpation technique Number of Attempts: 1 [...] Routine, Anesthesia Intra-op Given 06/19/2020 7:38 AM SUPERVISOR BRIAR SHOP 1.6 mL dexamethasone (DECADRON) injection INTRA-PROCEDURE PRN, Starting on Mon06/19/20 at 0810, Until Mon06/19/20 at 0838, Routine, Anesthesia Intra-op Given 06/19/2020 8:10 AM SUPERVISOR BRIAR SHOP 4 mg famotidine PF (PEPCID) 20 mg/2 mL injection INTRA-PROCEDURE PRN, Starting on Mon06/19/20 at 0720, Until Mon06/19/20 at 0838, Routine, Anesthesia Intra-op Given 06/19/2020 7:20 AM SUPERVISOR BRIAR SHOP 20 mg fentaNYL PF (SUBLIMAZE) 15 mcg/0.3 mL syringe 15 mcg 15 mcg, See Admin Instructions, INTRA-PROCEDURE ONCE, 1 dose, Starting on Mon06/19/20 at 0707, Until Mon06/19/20 at 0738, Routine Given 06/19/2020 7:38 AM SUPERVISOR BRIAR SHOP 15 mcg ketorolac (TORADOL) injection 30 mg 30 mg, IV, ONE TIME ONLY, 1 dose, On Mon06/19/20 at 0715, Routine, (OB POST-OP PAIN SERVICE) Given 06/19/2020 8:23 AM SUPERVISOR BRIAR SHOP 30 mg lactated ringers infusion IV, at 125 mL/hr, PRE-PROCEDURE CONTINUOUS, Starting on Mon06/19/20 at 0545, Until Mon06/19/20 at 1100, Routine, Pre-op Continue from Pre-Op 06/19/2020 6:54 AM SUPERVISOR BRIAR SHOP New Bag 06/19/2020 6:26 AM SUPERVISOR BRIAR SHOP 125 mL/hr lidocaine PF-EPINEPHrine (XYLOCAINE MPF-EPI) 2 %-1:200,000 injection INTRA-PROCEDURE PRN, Starting on Mon06/19/20 at 0751, Until Mon06/19/20 at 0838, Routine, Anesthesia Intra-op Given 06/19/2020 7:51 AM SUPERVISOR BRIAR SHOP 5 mL metoclopramide (REGLAN) 5 mg/mL injection INTRA-PROCEDURE PRN, Starting on Mon06/19/20 at 0720, Until Mon06/19/20 at 0838, Routine, Anesthesia Intra-op Given 06/19/2020 7:20 AM SUPERVISOR BRIAR SHOP 10 mg ondansetron (ZOFRAN) 4 mg/2 mL injection INTRA-PROCEDURE PRN, Starting on Mon06/19/20 at 0720, Until Mon06/19/20 at 0838, Routine, Anesthesia Intra-op Given 06/19/2020 7:20 AM SUPERVISOR BRIAR SHOP 4 mg oxytocin (PITOCIN) 10 unit/mL injection INTRA-PROCEDURE PRN, Starting on Mon06/19/20 at 0800, Until Mon06/19/20 at 0838, Routine, Anesthesia Intra-op Given 06/19/2020 8:00 AM SUPERVISOR BRIAR SHOP 3 Units oxytocin in sodium chloride 0.9 % (PITOCIN) 20 units in 1,000 mL infusion INTRA-PROCEDURE CONTINUOUS PRN, Starting on Mon06/19/20 at 0800, Until Mon06/19/20 at 0838, Routine, Anesthesia Intra-op New Bag 06/19/2020 8:00 AM SUPERVISOR BRIAR SHOP phenylephrine (RAMANA-SYNEPHRINE) 25 mg/250 mL 0.9% sodium chloride infusion (INTRA-OP USE ONLY) 0.5 mcg/kg/min ? 87.1 kg (26.13 mL/hr, rounded to 26.1 mL/hr), IV, INTRA-PROCEDURE CONTINUOUS, Starting on Mon06/19/20 at 0715, Until Mon06/19/20 at 1114 Rate Change 06/19/2020 8:08 AM SUPERVISOR BRIAR SHOP 0.3 mcg/kg/min 15.7 mL/hr New Bag 06/19/2020 7:38 AM SUPERVISOR BRIAR SHOP 0.5 mcg/kg/min 26.1 mL/h r documented in this encounter
--- OUTSIDE RECORDS SUMMARY | 2024-05-27 15:51 | XMS_ITS | Encounter Summary ---
Author Organization [facility] Address [address] [place] [address] Care Team Providers Care Kitchen Operator Name Role Phone Unavailable Primary Care Provider Unavailabl e Reason for Visit * Auth/Cert Specialty Diagnoses / Procedures Referred By Contac t Referred To Contact Obstetrics Diagnoses EDC: 07/15/20 Repeat Classical Procedures SECTION [facility] Mother Baby 5c [address] [place] [address] Referral ID Status Reason Start Date Expiration Date Visits Re quested Visits Authorized [id number] 1 1 Encounter Details Date Type Department Care Team (Latest Contact Info) Description 06/19/2020 5:34 AM STATUE CARVER - 06/21/2020 12:40 PM STATUE CARVER Hospital Encounter [facility] Mother/Baby 5C [address] [place] [address] Terrie Baca MD [address] [facility] [address] [place] [address] S/P section Discharge Disposition: Home [...] COVID-19? No / Unsure 06/19/2020 5:36 AM STATUE CARVER documented as of this encounter Last Filed Vital Signs Vital Sign Reading Time Taken Comments Blood Pressure 124/68 06/21/2020 7:26 AM STATUE CARVER Pulse 85 06/21/2020 12:42 AM STATUE CARVER Temperature 36.9 ??C (98.5 ??F) 06/21/2020 7:26 AM CS T Respiratory Rate 18 06/21/2020 7:26 AM STATUE CARVER Oxygen Saturation 99% 06/19/2020 10:14 AM STATUE CARVER Inhaled Oxygen Concentration - - Weight 87.1 kg (192 lb) 06/19/2020 6:19 AM STATUE CARVER Height 177.8 cm (5' 10 ) 06/19/2020 6:19 AM STATUE CARVER Body Mass Index 27.55 06/19/2020 6:19 AM STATUE CARVER documented in this encounter Discharge Summaries * Terrie Baca MD - 06/21/2020 9:30 AM CST Physician Discharge Summary - Delivery Patient: Angela Alarcon / 34 y.o. / female : 1985 Admit date: 06/19/2020 Discharge date: 06/21/2020 Attending Physician0 : Terrie Baca MD [place] Data: Information for the patient's : Blanca Alarcon [[id number]] Information for the patient's : Blanca Alarcon [[id number]] tab Discharge Diagnosis 1. non-labor Hospital Procedures 1. none. Pertinent History & Physical See H&P. Hospital Course Uncomplicated. Discharge Labs HEMOGLOBIN Date Value Ref Range Status 06/19/2020 10.2 (L) 11.8 - 14.8 g/dL Final PLATELETS Date Value Ref Range Status 06/19/2020 197 140 - 350 K/uL Final Discharge Condition:[id number] stable. Disposition She is discharged to home. [...] Your Medications These medications were sent to [address] [address] Hours: Monday-Monday: 8 a.m. - 8 p.m., Monday: 9 a.m. - 5 p.m., Monday: 10 a.m. - 4 p.m. ?? ibuprofen 600 mg tablet ?? oxyCODONE 5 mg tablet Terrie Baca MD UE CARVER documented in this encounter Discharge Instructions * Discharge Instructions* Judie Hooker RN - 06/21/2020 9:33 AM STATUE CARVER Images from the original note were not [...] feeding ?? For advice call: information line [phone] IF BOTTLE FEEDING ?? Avoid breast stimulation, [...] information, please contact our Intake Office at [phone]. After hours: [phone]. NEED SUPPORT AFTER YOU ARE HOME? [facility] now offers outpatient consult appointments. An International Board-Certified Roofer Helper Vinyl Coating is available to help if you need support after you and your arehome. Appointments are approximately one hour long and take place in the Department of Ser vices (second floor of [facility] near the NICU) Many insurance plans offer coverage for this service. Please call [phone], our Information line, to schedule your appointment or to get support by phone. Same or next day appointments are often available. Where can you learn more? Go to [email or web address] Enter G069 in the search box to learn more about Your [place] at Home: Care Instructions. Enter Y708 in the search box to learn more about Learning About Rescue Breathing and CPR for Babies Under 1 Year. / Resources During Covid-19 Phone Consults & Visits Call [phone] to ask questions about . If needed, our team can schedule a video visit with you. Virtual with Confidence On Wednesdays, 1-2 pm., join us for a group meeting via videoconference facilitated by a professional. Ask questions, get advice! To register: Visit [employer] and select [facility] / View Classes / Support Once [...] leave a message for the nurse at [phone]. Please note these messages are picked up as time allows and are not intended to replace advise from your physician.If you need is urgent, please contact your or your baby's physician. UE CARVER documented in this encounter Medications at Time [...] and will be transported via private vehicle. UE CARVER * Terrie Baca MD - 06/21/2020 9:27 [...] to go home today. Terrie Baca MD UE CARVER * Odalis Bender MD - 06/21/2020 7:37 [...] pain meds 3. Anxiety: Gary Bender MD Ms Sql Server Developer PGY-1 Pager: [phone] UE CARVER * Jae Lugo DO - 06/20/2020 7:15 [...] Zoloft Octaviano Way DO PGY1 Dept. of Ms Sql Server Developer Pager: [phone] Seen and examined. Agree with plan. Dr. Lugo UE CARVER * Terrie Baca MD - 06/19/2020 7:31 [...] be present at delivery. Terrie Baca MD UE CARVER * Maira Franz RN - 06/18/2020 11:28 [...] Currently on Zoloft Opportunity provided for questions. Cover Operator required: N/A Maira Franz RN UE CARVER documented in this encounter H&P Notes * [...] No observed anomalies 1 SAB 08/2016 SAB GAS FITTER Hx: remote history of abnormal Pap smears, [...] SECTION performed by Terrie Baca MD at [facility] ??? HI DELIVERY ONLY N/A 04/01/2019 SECTION performed by Terrie Baca MD at [facility] ??? HI COLONOSCOPY FLX DX W/COLLJ SPEC WHEN PFRMD 06/06/2013 COLONOSCOPY performed by Xavi Aquino MD at [facility] ??? HI ESOPHAGOGASTRODUODENOSCOPY TRANSORAL DIAGNOSTIC 06/06/2013 ESOPHAGOGASTRODUODENOSCOPY performed by Xavi Aquino MD at [facility] ??? HI HYSTEROSCOPY,W/ENDO BX N/A 08/11/2016 HYSTEROSCOPY WITH DILATATION AND CURETTAGE SUCTION performed by Dustin Bill MD at [facility] ??? HI ORAL SURGERY FHx: Negative for genetic tendencies, [...] FHR: 150, mod variability, +accels, no decels [place]: quiet Assessment/Plan: 34 y.o. @ 36w2d admitted [...] pre-op antibiotics for prophylaxis 6. Anxiety: Continue SOURCING SPECIALIST Zoloft, NICU for labor and delivery nurse discussed with Dr. Nigel Jones MD SILVER SPRAY WORKER PGY-3 Pager: UE CARVER documented in this encounter OR Notes * Anesthesiology - Georgie Hebert CRNA - 06/20/2020 3:33 AM CST Discussed post-op pain management plan with attending anesthesiologist. Epidural pulled in accordance with prescribed plan. Epidural pulled due to dressing failure (clamp disconnected). Tip was intact. Site is clean dry and without erythema. Georgie Hebert CRNA 06/20/2020 3:33 AM UE CARVER * Anesthesiology - Georgie Hebert CRNA - [...] complications Georgie Hebert CRNA 06/20/2020 6:08 AM UE CARVER * Operative Report - Terrie Baca MD - 06/19/2020 8:34 AM CST Section Operative Note Date of Procedure: 06/19/2020 Procedure: repeat low transverse section via Pfannenstiel incision Pre-operative Diagnosis: 1. 34 y.o. with IUP @ 36w2d 2. History of T incision Post-operative Diagnosis: same Surgeon: Terrie Baca MD Motion Graphics Artist: Frederick Jovel DO Anesthesia: spinal QBL: 660 mL Urine Output: clear urine in Abad bag after procedure Specimen(s): cord blood for ABO typing Antibiotics: 2g Ancef Operative Complications: none Indications: Please see pre-op diagnosis above, H&P and most recent progress notes for further details. Findings: Gestational Age: 36w2d Date of Delivery: 06/19/2020 Time of Delivery: 7:59 AM [place] Sex: Female Delivery Type: , Low Transverse [...] recovery in stable condition. Frederick Jovel, DO UE CARVER documented in this encounter Miscellaneous Notes * Care Plan - Odalis Araiza RN - 06/21/2020 5:15 AM CST VSS. Fundus firm, Lochia WNL. Incision C/D/I. Independent in ADLs. Voiding without difficulty. Painwell controlled with PO Motrin, Tylenol, and Shauna. Breast feeding well. UE CARVER * Care Plan - Betzy Tom RN - 06/20/2020 5:23 PM CST Pain is controlled with PO pain medications. Patient is ambulating independently and voiding without difficulty. VSS. successfully. Applying ice to incision. Progressing towards discharge goals. UE CARVER * Care Plan - Judie Hooker RN - 06/20/2020 2:20 PM CST Pt's fundus remains firm and bleeding is light. Pain is well controlled with PO motrin, tylenol, and shauna. VSS. Progressing towards discharge. UE CARVER * Care Plan - Hayley Vela RN - 06/20/2020 6:27 AM CST VSS. Pt up and voiding without difficulty. Epidural dc'd after becoming disconnected. Pt's pain well controlled with po pain meds. Resting comfortably throughout the night. UE CARVER * Treatment Plan - Lillian No RN - 06/19/2020 5:39 AM CST Images from the original note were not included. Pre-operative Protocol [facility] ORDERS ARE ENTERED ???PER PROTOCOL?? Follow this protocol for all section patients (scheduled and unscheduled). Enter the protocol in the patient???s electronic health record using [employer]: .cesareanbirthprotocol Nursing Orders: o Initiate the Pathway [...] 01/2018 Adult Influenza and/or Pneumococcal Vaccine Protocol [facility] ORDERS ARE ENTERED ???PER [...] Nursing Leadership, Pharmacy & Therapeutics CommitteeDate: 01/2018 UE CARVER documented in this encounter Plan of Treatment Upcoming Encounters Date Type Department Care Team (Late st Contact Info) Description 10/08/2024 9:45 AM CDT Office Visit [facility] SILVER SPRAY WORKER - [facility] [address] [address] Terrie Baca MD [address] [facility] [address] [place] [address] documented as of this encounter Procedures Procedure Name Priority Date/Time Associated Diagnosis Comments SECTION 06/19/2020 7:30 AM STATUE CARVER EDC: 07/15/20 * Repeat Classical CBC WITH DIFFERENTIAL Routine 06/19/2020 6:03 AM STATUE CARVER TYPE AND SCREEN Routine 06/19/2020 6:03 AM STATUE CARVER documented in this encounter Results * (ABNORMAL) CBC WITH DIFFERENTIAL (06/19/2020 6:03 AM STATUE CARVER) WBC 5.8 4.0 - 9.8 K/uL 06/19/2020 6:43 AM STATUE CARVER [facility] RBC 3.31(L) 3.90 - 4.90 M/uL 06/19/2020 6:43 AM STATUE CARVER [facility] HEMOGLOBIN 10.2(L) 11.8 - 14.8 g/dL 06/19/2020 6:43 AM STATUE CARVER [facility] HEMATOCRIT 32.4(L) 35.5 - 44.0 % 06/19/2020 6:43 AM STATUE CARVER [facility] MCV 97.9 82.0 - 99.0 fL 06/19/2020 6:43 AM STATUE CARVER [facility] MCH 30.8 27.2 - 32.6 pg 06/19/2020 6:43 AM STATUE CARVER [facility] MCHC 31.5 31.5 - 35.5 g/dL 06/19/2020 6:43 AM STATUE CARVER [facility] RDW 13.5 11.5 - 14.5 % 06/19/2020 6:43 AM STATUE CARVER [facility] RDW-STDEV 48.7 37.1 - 48.7 fL 06/19/2020 6:43 AM STATUE CARVER [facility] PLATELETS 197 140 - 350 K/uL 06/19/2020 6:43 AM STATUE CARVER [facility] MPV 9.6 9.3 - 12.4 fL 06/19/2020 6:43 AM STATUE CARVER [facility] NEUTROPHILS 65 % 06/19/2020 6:43 AM STATUE CARVER [facility] LYMPHOCYTES 23 % 06/19/2020 6:43 AM STATUE CARVER [facility] MONOCYTES 10 % 06/19/2020 6:43 AM STATUE CARVER [facility] EOSINOPHILS 1 % 06/19/2020 6:43 AM STATUE CARVER [facility] BASOPHILS 0 % 06/19/2020 6:43 AM STATUE CARVER [facility] IMMATURE GRANULOCYTES 1 % 06/19/2020 6:43 AM STATUE CARVER [facility] Comment:IG (Immature Granulo cyte) count includes Metamyelocytes, Myelocytes, and Promyelocytes NEUTROPHIL ABSOLUTE 3.79 1.90 - 7.00 K/uL 06/19/2020 6:43 AM STATUE CARVER [facility] - . [facility] LYMPHOCYTE ABSOLUTE 1.36 0.70 - 4.50 K/uL 06/19/2020 6:43 AM [facility] - . [facility] MONOCYTE ABSOLUTE 0.57 0.10 - 1.30 K/uL 06/19/2020 6:43 AM [facility] [employer] [facility] EOSINOPHIL ABSOLUTE 0.04 0.00 - 0.70 K/uL 06/19/2020 6:43 AM STATUE CARVER [facility] BASOPHILS ABSOLUTE 0.01 0.00 - 0.20 K/uL 06/19/2020 6:43 AM STATUE CARVER [facility] - . [facility] IMMATURE GRANULOCYTES ABSOLUTE 0.03 0.00 - 0.03 K/uL 06/19/2020 6:43 AM STATUE CARVER [facility] - [facility] Blood Venipuncture / Unknown 06/19/2020 6:03 AM STATUE CARVER 06/19/2020 6:21 AM STATUE CARVER Terrie Baca MD HEMATOLOGY ORDERAB LES [facility] [employer] SERVICES [facility]# [id number] [address] [place] [address] * TYPE AND SCREEN (06/19/2020 6:03 AM STATUE CARVER) ABO GROUP O 06/19/2020 7:58 AM STATUE CARVER [employer] [facility] -- [facility] RH (D) TYPE Positive 06/19/2020 7:58 AM STATUE CARVER [employer] [facility] -- [facility] ANTIBODY SCREEN Negative 06/19/2020 7:58 AM STATUE CARVER [employer] [facility] -- [facility] Blood Venipuncture / Unknown 06/19/2020 6:03 AM STATUE CARVER 06/19/2020 6:21 AM STATUE CARVER Terrie Baca MD BLOOD BANK ORDERAB LES [facility] LABORATORY SERVICES -- [facility]# [id number] [address] [place] [address] documented in this encounter Visit Diagnoses Diagnosis [...] Post-op - Floor Given 06/21/2020 12:23 PM STATUE CARVER 650 mg Given 06/21/2020 6:33 AM STATUE CARVER 650 mg Given 06/21/2020 12:42 AM STATUE CARVER 650 mg carboprost tromethamine (HEMABATE) 250 mcg/mL [...] Surgical prophylaxis New Bag 06/19/2020 7:20 AM STATUE CARVER 2,000 mg 200 mL/hr docusate sodium (COLACE) capsule 100 mg 100 mg, Oral, TWO TIMES DAILY, First dose on Mon06/19/20 at 1200, Until Discontinued, Routine, Post-op - Floor Given 06/21/2020 8:44 AM STATUE CARVER 100 mg Given 06/20/2020 8:30 PM STATUE CARVER 100 mg Given 06/20/2020 8:17 AM STATUE CARVER 100 mg ferrous sulfate tablet 325 mg 325 mg, Oral, DAILY, First dose on Mon06/19/20 at 1200, Until Discontinued, Routine, Post-op - Floor Given 06/21/2020 8:44 AM STATUE CARVER 325 mg Given 06/20/2020 8:18 AM STATUE CARVER 325 mg ibuprofen (MOTRIN) tablet 600 mg 600 mg, Oral, EVERY 6 HOURS, First dose on Mon06/19/20 at 1500, Until Discontinued, Routine, Post-op - Floor Given 06/21/2020 6:33 AM STATUE CARVER 600 mg Given 06/21/2020 12:42 AM STATUE CARVER 600 mg Given 06/20/2020 6:36 PM STATUE CARVER 600 mg lactated ringers infusion IV, at 125 mL/hr, PRE-PROCEDURE CONTINUOUS, Starting on Mon06/19/20 at 0545, Until Mon06/19/20 at 1100, Routine, Pre-op Continue from Pre-Op 06/19/2020 6:54 AM STATUE CARVER New Bag 06/19/2020 6:26 AM STATUE CARVER 125 mL/hr lactated ringers infusion IV, at 125 mL/hr, CONTINUOUS, Starting on Mon06/19/20 at 2000, Until Mon06/21/20 at 1443, Routine, Post-op - Floor New Bag 06/19/2020 7:16 PM STATUE CARVER 125 mL /hr meperidine 5 mg/ml epidural 2 mL/hr, Epidural, CONTINUOUS, Starting on Mon06/19/20 at 0900, Until 06/20/20 at 0335, Stat New Bag 06/19/2020 9:54 AM STATUE CARVER 2 mL/hr 2 mL/hr methylergonovine maleate (METHERGINE) [...] admin instructions), Routine Given 06/21/2020 12:23 PM STATUE CARVER 5 mg Given 06/21/2020 8:44 AM STATUE CARVER 5 mg Given 06/21/2020 4:47 AM STATUE CARVER 5 mg oxyCODONE (ROXICODONE) tablet 5 mg [...] - Floor Rate Verify 06/19/2020 7:14 PM STATUE CARVER 20 mL/hr Rate Verify 06/19/2020 11:35 AM STATUE CARVER 125 mL/hr New Bag 06/19/2020 11:33 AM STATUE CARVER 125 mL/hr 125 mL/hr vit-iron fumarate-fa (WILLIAM ) 28 mg iron- 800 mcg per tablet 1 Tablet 1 Tablet, Oral, DAILY AT BEDTIME, First dose (after last modification) on Mon06/20/20 at 2100, Until Discontinued, Routine, Post-op - Floor Given 06/20/2020 8:30 PM STATUE CARVER 1 Tablet sennosides-docusate sodium (SENNA-S) 8.6-50 mg per tablet 1 Tablet 1 Tablet, Oral, DAILY AT BEDTIME, First dose on Mon06/19/20 at 2100, Until Discontinued, Routine, Post-op - Floor Given 06/20/2020 8:31 PM STATUE CARVER 1 Tab let Given 06/19/2020 9:16 PM STATUE CARVER 1 Tablet sertraline (ZOLOFT) tablet 50 mg 50 mg, Oral, DAILY, First dose on Mon06/19/20 at 2145, Until Discontinued, Routine Given 06/20/2020 9:05 PM STATUE CARVER 50 mg Given 06/19/2020 10:13 PM STATUE CARVER 50 mg simethicone chewable tablet 80 mg 80 mg, Oral, EVERY 6 HOURS PRN, Starting on Mon06/19/20 at 1119, Until 06/21/20 at 1443, Gas, Routine, Post-op - Floor Given 06/20/2020 1:37 AM STATUE CARVER 80 mg Given 06/19/2020 6:05 PM STATUE CARVER 80 mg tranexamic acid (CYKLOKAPRON) 1,000 mg in sodium chloride (iso-osmotic) 100 mL IVPB 1,000 mg, IV, ONE TIME PRN, 1 dose, Starting on Mon06/19/20 at 0536, Until Mon06/21/20 at 1443, Other (See Comment), Physician consultation required before administration for appropriate medication selection, Routine documented in this encounter Active and Recently Administered Medications Times are shown in STATUE CARVER. Scheduled Medication Order 06/19/2020 06/20/2020 06/21/2020 acetaminophen [...] Floor 1200 (Not Given - Provider: Diamond Schurwan, RN - Reason: Patient condition)2116 (Given [...]
--- OUTSIDE RECORDS SUMMARY | 2024-05-27 15:51 | XMS_ITS | Encounter Summary ---
Author Organization [facility] Address [address] [place] [address] Care Team Providers Care Assistant Community Manager Name Role Phone Unavailable Primary Care [...] CDT Office Visit [facility] FLOOR BROKER - Medical [facility] [address] [facility] [address] [place] [address] Terrie Manning MD [address] [facility] [address] [place] [address] documented as of this encounter Visit Diagnoses Not on filedocumented in this encounter
--- OUTSIDE RECORDS SUMMARY | 2024-05-27 15:51 | XMS_ITS | Encounter Summary ---
Author Organization [facility] Address [address] [place] [address] Care Team Providers Care Instrument Inspector Name Role Phone Unavailable Primary Care Provider Unavailabl e Reason for Visit * Reason Comments Well Woman Exam Encounter Details Date Type Department Care Team (Late st Contact Info) Description 09/07/2020 1:20 PM CDT Office Visit [facility] PRIMARY CLASS TEACHER - Medical [address] [address] Terrie Baca MD [address] [place] [address] Encounter for gynecological examination with [...] 2015 ??? HX WISDOM TEETH EXTRACTION ??? TN DELIVERY ONLY N/A 08/21/2017 SECTION performed by Terrie Baca MD at [facility] ??? TN DELIVERY ONLY N/A 04/01/2019 SECTION performed by Terrie Baca MD at [facility] ??? TN DELIVERY ONLY N/A 06/19/2020 SECTION performed by Terrie Baca MD at [facility] ??? TN COLONOSCOPY FLX DX W/COLLJ SPEC WHEN PFRMD 06/06/2013 COLONOSCOPY performed by Xavi Aquino MD at [facility] ??? TN ESOPHAGOGASTRODUODENOSCOPY TRANSORAL DIAGNOSTIC 06/06/2013 ESOPHAGOGASTRODUODENOSCOPY performed by Xavi Aquino MD at [facility] ??? TN HYSTEROSCOPY,W/ENDO BX N/A 08/11/2016 HYSTEROSCOPY WITH DILATATION AND CURETTAGE SUCTION performed by Dustin Bill MD at [facility] ??? TN ORAL SURGERY Family History Problem Relation Name [...] 9:45 AM CDT Office Visit [facility] PRIMARY CLASS TEACHER - [facility] [address] [address] [address] Terrie Baca MD [address] [facility] [address] [place] [address] documented as of this encounter [...] STI screening follows ACOG guidelines(PB 168, 140, FQR642). See individual assays for performing site location. [...] 1:31 PM CDT [facility] PROGRAM ANALYST: SEE COMMENT 2020 1:31 PM CDT [facility] Comment: BEF, CT(ASCP) CT screening location: [place] [address] [place] [address] EXPLANATORY NOTE SEE COMMENT 1:31 PM CDT [...] Detected Not Detected 09/10/2020 1:31 PM CDT [facility] REFERENCE LAB [facility] Comment: Methodology: Hoop Flaring Machine Operator Helper-Mediated Amplification This assay detects E6/E7 viral messenger RNA (mRNA) from 14 high-risk HPV types (16,18,31,33,35,39,45,51,52,56,58,59,66,68). The analytical performance characteristics of this assay have been determined by [employer]. The modifications have not been cleared or approved by the FDA. This assay has been validated pursuant to the CLIA regulations and is used for clinical purposes. For additional information, please refer to http://education.Pulse/faq/HWJ195c6 (This link if provided for information/ educational purposes only.) Genital SWAB OF ENDOCERVIX / Unknown Collection / Unknown 09/07/2020 2:29 PM CDT 09/07/2020 7:03 PM CDT Narrative [facility] REFERENCE LAB [facility] - 09/10/2020 1:31 PM CDT Performing Organization Information: ?Site ID: [place] ?Name: [facility] ?Address: [address] [place] [address] ?Director: Vitaly Hardy D.O., MPH ?Site ID: [id number] ?Name: [facility] ?Address: [facility] [place] [address] ?Director: Sarah Jay Terrie Baca MD PATHOLOGY/CYTOLOGY ORDERABLES [facility] LAB [facility] [phone] documented in this encounter Visit Diagnoses Diagnosis Encounter for gynecological examination with abnormal finding- Primary Routine gynecological examination Anxiety state Anxiety state, unspecified Dyspareunia in female documented in this encounter
--- OUTSIDE RECORDS SUMMARY | 2024-05-27 15:51 | XMS_ITS | Encounter Summary ---
Author Organization [facility] Address [address] [place] [address] Care Team Providers Care Taper Printed Circuit Layout Name Role Phone Unavailable Primary Care Provider Unavailabl e Reason for Visit * Reason Onset Date Comments Needs Form Or Letter Filled Out 09/08/2020 PA/PREMARIN CREAM Encounter Details Date Type Department Care Team (Late st Contact Info) Description 09/08/2020 Telephone [facility] METER READER - Medical [facility] [address] [place] [address] [address] Terrie Manning MD [address] [facility] [address] [address] Needs Form Or Letter Filled [...] Description 10/08/2024 9:45 AM CDT Office Visit [facility] METER READER - Medical [facility] [address] [address] [address] Terrie Manning MD [address] [facility] [address] [address] documented as of this encounter Visit Diagnoses Not on filedocumented in this encounter
--- OUTSIDE RECORDS SUMMARY | 2024-05-27 15:51 | XMS_ITS | Encounter Summary ---
Author Organization [facility] Address [address] [place] [address] Care Team Providers Care Kayak Maker Name Role Phone Unavailable Primary Care Provider Unavailabl e Reason for Visit * Reason Comments Medication Refill Encounter Details Date Type Department Care Team ([facility] Contact Info) Description 07/27/[address] [facility] FIRST SAMPLER - [address] [address] Terrie Manning MD [address] [address] Social History Tobacco Use Types [...] Department Care Team ([facility] Contact Info) Description 10/08/2024 9:45 AM CDT Office Visit [facility] FIRST SAMPLER - [address] [address] Terrie Manning MD [address] [place], [place] [address] [address] documented as of this encounter Visit Diagnoses Not on filedocumented in this encounter
--- OUTSIDE RECORDS SUMMARY | 2024-05-27 15:51 | XMS_ITS | Encounter Summary ---
Author Organization [facility] Address [address] [facility] Attn: Epic [place] [address] Care Team Providers Care Prune Washer Name Role Phone Unavailable Primary Care Provider [...] CDT Office Visit [facility] ASSOCIATE PROFESSOR OF GEOGRAPHY - Medical [facility] [address] [facility] [address] [address] Terrie Manning MD 6[address] S[address] [facility] [address] [address] documented as of this encounter Visit Diagnoses Not on filedocumented in this encounter
--- OUTSIDE RECORDS SUMMARY | 2024-05-27 15:51 | XMS_ITS | Encounter Summary ---
Author Organization [facility] Address [address] [place] [address] Care Team Providers Care Gas Main Fitter Helper Name Role Phone Unavailable Primary Care Provider Unavailabl e Reason for Visit * Reason Comments Medication Refill Encounter Details Date Type Department Care Team ([facility] Contact Info) Description 01/12/2022 Refill [facility] BEHAVIORAL PSYCHOLOGIST - [address] [address] Terrie Manning MD [address] [address] Social History Tobacco Use [...] Upcoming Encounters Date Type Department Care Team ([facility] Contact Info) Description 10/08/2024 9:45 AM CDT Office Visit [facility] BEHAVIORAL PSYCHOLOGIST - [address] [address] Terrie Manning MD [address] [place] [address] [address] [place] [address] documented as of this encounter Visit Diagnoses Not on filedocumented in this encounter
--- OUTSIDE RECORDS SUMMARY | 2024-05-27 15:51 | XMS_ITS | Encounter Summary ---
Author Organization [facility] Address [address] [place] [address] Care Team Providers Care Rose Grading Supervisor Name Role Phone Unavailable Primary Care Provider Unavailabl e Reason for Referral * Radiology Services (Routine) - Closed Specialty Diagnoses / Procedures Referred By Cheikh pichardo Referred To Contact Radiology Diagnoses Screening mammogram, encounter for Procedures MAMMO SCRN BILAT 3D BOUBACAR W OR WO CAD CHG SCREENING MAMMOGRAPHY BI 2-VIEW BREAST INC CAD CHG SCREENING DIGITAL BREAST TOMOSYNTHESIS Terrie Baca MD 621 [facility] [address] [place] [address] [facility] Breast [facility] [address] [place] [address] Referral ID Status Reason Start Date Expiration Date Visits Re quested Visits Authorized [id number] Closed 09/27/2022 10/28/2023 1 1 Reason for Visit * Reason Comments Well Woman Exam Encounter Details Date Type Department Care Team (Late st Contact Info) Description 09/27/2022 2:15 PM CDT Office Visit [facility] NITROGLYCERIN DISTRIBUTOR - Medical [facility] [address] [facility] [address] [place] [address] Terrie Baca MD 621 S[address] [facility] [address] [address] Well female exam with routine [...] LEEP PROCEDURE 2016 HX WISDOM TEETH EXTRACTION [place] DELIVERY ONLY N/A 08/21/2017 SECTION performed by Terrie Baca MD at [facility] [place] DELIVERY ONLY N/A 04/01/2019 SECTION performed by Terrie Baca MD at [facility] [place] DELIVERY ONLY N/A 06/19/2020 SECTION performed by Terrie Baca MD at [facility] NM COLONOSCOPY FLX DX W/COLLJ SPEC WHEN PFRMD 06/06/2013 COLONOSCOPY performed by Xavi Aquino MD at [facility] NM ESOPHAGOGASTRODUODENOSCOPY TRANSORAL DIAGNOSTIC 06/06/2013 ESOPHAGOGASTRODUODENOSCOPY performed by Xavi Aquino MD at [facility] NM HYSTEROSCOPY BX ENDOMETRIUM&/POLYPC W/WO D&C N/A 08/11/2016 HYSTEROSCOPY WITH DILATATION AND CURETTAGE SUCTION performed by Dustin Bill MD at [facility] ORAL SURGERY Family History Problem Relation Name [...] 10/08/2024 9:45 AM CDT Office Visit [facility] NITROGLYCERIN DISTRIBUTOR - Medical [facility] [address] [address] Terrie Baca MD 621 [facility] [address] [address] documented as of this encounter [...] ??BI-RADS CATEGORY 1 - Negative DICTATION LOCATION: [facility] Narrative 11/22/2022 4:29 PM CDT EXAMINATION: BILATERAL [...] BI-RADS CATEGORY 1 - Negative DICTATION LOCATION: [facility] Terrie Baca MD MAMMO ORDERABLES * CERV/VAG CYTO SCREEN PAP RLFX HPV (09/27/2022 2:58 PM CDT) CLINICAL INFORMATION Latha Prather Comment:None given LAST MENSTRUAL PERIOD Latha Prather Comment:[id number] PREV PAP: Latha Prather Comment:NONE GIVEN PREV BX: Latha Prather Comment:NONE GIVEN SOURCE Latha Prather Comment:Endocervix ADEQUACY: Latha Prather Comment: Satisfactory for evaluation. Endocervical/transformation zone component present. PAP INTERP Latha Prather Comment:Negative for intraep ithelial lesion or malignancy. COMMENT (PAP TEST) Q uest Keyur Prather Comment: This Pap test has been evaluated with computer assisted technology. CUSTOMER RECORDS DIVISION SUPERVISOR: Homer Prather Comment: BKA, CT(ASCP) CT screening location: [place] [address] [address] [address] REVIEW CUSTOMER RECORDS DIVISION SUPERVISOR: Latha Prather Comment: PCM, CT(ASCP) CT Screening Location: [place] [address] [address] [place] [address] EXPLANATORY NOTE Que [facility] Comment: EXPLANATORY NOTE: The Pap is a screening test for cervical cancer. It is not a diagnostic test and is subject to false negative and false positive results. It is most reliable when a satisfactory sample, regularly obtained, is submitted with relevant clinical findings and history, and when the Pap result is evaluated along with historic and current clinical information. Test Performed at: [place] [address] [place] ??[phone] GuerdaJosue Carla Jay Genital SWAB OF ENDOCERVIX / Unknown 09/27/2022 2:58 PM CDT 09/28/2022 3:22 AM CDT Terrie Baca MD PATHOLOGY/CYTOLOGY ORDERABLES [facility] [phone] [place] [address] [address] [place] [address] documented in this encounter Visit Diagnoses Diagnosis Well female exam with routine gynecological exam- Primary Routine gynecological examination Menstrual migraine without status migrainosus, not intractable Menstrual migraine, without mention of intractable migraine without mention of status migrainosus Anxiety state Anxiety state, unspecified Screening mammogram, encounter for Screening mammogram, encounter for documented in this encounter
--- OUTSIDE RECORDS SUMMARY | 2024-05-27 15:51 | XMS_ITS | Encounter Summary ---
Author Organization [facility] Address [address] [place] [address] Care Team Providers Care Internal Medicine Nurse Practitioner Name Role Phone Unavailable Primary Care Provider [...] 9:45 AM CDT [facility] Visit [facility] REGIONAL REHABILITATION DIRECTOR - Medical [facility] [address] [facility] [address] [place] [address] Terrie Manning MD 621 [address] [facility] [address] [place] [address] documented as of this encounter Visit Diagnoses Not on filedocumented in this encounter
--- OUTSIDE RECORDS SUMMARY | 2024-05-27 15:51 | XMS_ITS | Encounter Summary ---
Author Organization [facility] Address [address] [place] [address] Care Team Providers Care Housing Inspectors Name Role Phone Unavailable Primary Care Provider [...] Office Visit [facility] DERRICK CAR OPERATOR - Medical [facility] [address] [facility] [address] [place] [address] Terrie Manning MD 6[address] [facility] [address] [place] [address] documented as of this encounter Visit Diagnoses Not on filedocumented in this encounter
--- OUTSIDE RECORDS SUMMARY | 2024-05-27 15:51 | XMS_ITS | Encounter Summary ---
Author Organization [facility] Address [address] [place] [address] Care Team Providers Care Humanities Coordinator Name Role Phone Unavailable Primary Care [...] AM CDT Office Visit [facility] DRUPAL DEVELOPER - Medical [facility] [address] [facility] [address] [place] [address] Terrie Manning MD 621 S[address] [facility] [address] [place] [address] documented as of this encounter Visit Diagnoses Not on filedocumented in this encounter
--- OUTSIDE RECORDS SUMMARY | 2024-05-27 15:51 | XMS_ITS | Encounter Summary ---
Author Organization [facility] Address [address] [facility] Attn: [place] [address] Care Team Providers Care Mover Name Role Phone Unavailable Primary Care Provider [...] CDT Office Visit [facility] HOME HOSPICE AIDE - Medical [place] [address] [address] [address] Terrie Manning MD 6[address] S[address] [facility] [address] [address] documented as of this encounter Visit Diagnoses Not on filedocumented in this encounter
--- OUTSIDE RECORDS SUMMARY | 2024-05-27 15:51 | XMS_ITS | Encounter Summary ---
Author Organization [facility] Address [address] [place] [address] Care Team Providers Care Optometrist Name Role Phone Unavailable Primary Care Provider [...] CDT Office Visit [facility] ASSISTANT PROFESSOR OF CHEMISTRY - Medical [facility] [address] [facility] [address] [place] [address] Terrie Manning MD [address] [facility] [address] [place] [address] documented as of this encounter Visit Diagnoses Not on filedocumented in this encounter
--- OUTSIDE RECORDS SUMMARY | 2024-05-27 15:51 | XMS_ITS | Encounter Summary ---
Author Organization [facility] Address [address] [place] [address] Care Team Providers Care Scenic Designer Name Role Phone Unavailable Primary Care Provider Unavailabl e Reason for Visit * Reason Onset Date Comments Medication Refill 06/29/2022 Encounter Details Date Type Department Care Team (Late Contact Info) Description 06/29/2022 Refill [facility] MANAGER PRICING [address] [address] Terrie Manning MD [address] [place] [address] Social History Tobacco Use Types Packs/Day [...] Visit [facility] MANAGER PRICING - [address] [place] [address] Terrie Manning MD 621 S. [facility] [address] [address] documented as of this encounter Visit Diagnoses Not on filedocumented in this encounter
--- OUTSIDE RECORDS SUMMARY | 2024-05-27 15:51 | XMS_ITS | Encounter Summary ---
Author Organization [facility] Address [address] [facility] Attn: [place] [address] Care Team Providers Care Tower Helper Name Role Phone Unavailable Primary Care [...] AM CDT Office Visit [facility] TRICK RODEO RIDER - Medical [facility] [address] [address] Terrie Manning MD 6[address] S[address] [facility] [address] [address] documented as of this encounter Visit Diagnoses Not on filedocumented in this encounter
--- OUTSIDE RECORDS SUMMARY | 2024-05-27 15:51 | XMS_ITS | Encounter Summary ---
Author Organization [facility] Address [address] [place] [address] Care Team Providers Care Ditching Machine Operator Name Role Phone Unavailable Primary Care [...] CDT Office Visit [facility] POST ACUTE CARE NURSE PRACTITIONER - Medical [facility] [address] [facility] [address] [place] [address] Terrie Manning MD [address] S[address] [facility] [address] [place] [address] documented as of this encounter Visit Diagnoses Not on filedocumented in this encounter
--- OUTSIDE RECORDS SUMMARY | 2024-05-27 15:51 | XMS_ITS | Encounter Summary ---
Author Organization [facility] Address [address] [place] [address] Care Team Providers Care Substation Electrician Name Role Phone Unavailable Primary Care Provider Unavailabl e Reason for Visit * Reason Comments Medication Refill Encounter Details Date Type Department Care Team ([facility] Contact Info) Description 01/17/2021 Refill [facility] SPARE HAND - [address] [address] Terrie Manning MD [address] [address] Social History Tobacco Use Types [...] Upcoming Encounters Date Type Department Care Team ([facility] Contact Info) Description 10/08/2024 9:45 AM CDT Office Visit [facility] SPARE HAND - [address] [address] Terrie Manning MD [address] [place], [place] [address] [place] [address] documented as of this encounter Visit Diagnoses Not on filedocumented in this encounter
--- OUTSIDE RECORDS SUMMARY | 2024-05-27 15:51 | XMS_ITS | Encounter Summary ---
Author Organization [facility] Address [address] [place] [address] Care Team Providers Care Oil Well Engineer Name Role Phone Unavailable Primary Care Provider Unavailabl e Reason for Visit * Reason Comments Well Woman Exam Encounter Details Date Type Department Care Team (Late st Contact Info) Description 10/03/2023 9:45 AM CDT Office Visit [facility] SCRUBBER MACHINE TENDER - Medical [address] [address] Terrie Baca MD [address] [place] [address] Well female exam with routine [...] LEEP PROCEDURE 2016 HX WISDOM TEETH EXTRACTION [place] DELIVERY ONLY N/A 08/21/2017 SECTION performed by Terrie Baca MD at [facility] [place] DELIVERY ONLY N/A 04/01/2019 SECTION performed by Terrie Baca MD at [facility] [place] DELIVERY ONLY N/A 06/19/2020 SECTION performed by Terrie Baca MD at [facility] [place] COLONOSCOPY FLX DX W/COLLJ SPEC WHEN PFRMD 06/06/2013 COLONOSCOPY performed by Xavi Aquino MD at [facility] [place] ESOPHAGOGASTRODUODENOSCOPY TRANSORAL DIAGNOSTIC 06/06/2013 ESOPHAGOGASTRODUODENOSCOPY performed by Xavi Aquino MD at [facility] [place] HYSTEROSCOPY BX ENDOMETRIUM&/POLYPC W/WO D&C N/A 08/11/2016 HYSTEROSCOPY WITH DILATATION AND CURETTAGE SUCTION performed by Dustin Bill MD at [facility] [place] ORAL SURGERY Family History Problem Relation Name [...] Description 10/08/2024 9:45 AM CDT Office Visit [facility] SCRUBBER MACHINE TENDER - [address] [address] Terrie Baca MD [facility] S. [facility] [address] [place] [address] documented as of this encounter Procedures Procedure Name Priority Date/Time Associated Diagnosis Comments CERV/VAG CYTO SCREEN PAP RLFX HPV Routine 10/03/2023 1:46 PM CDT Well female exam with routine gynecological exam documented in this encounter Results * CERV/VAG CYTO SCREEN PAP RLFX HPV (10/03/2023 1:46 PM CDT) [facility] CLINICAL INFORMATION Latha Prather Comment: Routine exam WWE LAST MENSTRUAL PERIOD Latha DiazVargas Prather Comment:[id number] PREV PAP: Latha Prather Comment:NONE GIVEN PREV [...] has been evaluated with computer assisted technology. WARP TRUCKER: lonnie Prather Comment: LMT, CT(ASCP) CT screening location: [place] [address] [address] [address] REVIEW WARP TRUCKER: Latha Prather Comment: DASILVA, CT(ASCP) CT Screening location: [facility] [address] [place] [address] [address] Que [address] Keyur Prather Comment: [...] and current clinical information. Test Performed at: [place] [address] [address] [place] ??[phone] GuerdaLoriKerry Aguirre Genital SWAB OF ENDOCERVIX / Unknown 10/03/2023 1:46 PM CDT 10/04/2023 1:17 AM CDT Terrie Baca MD PATHOLOGY/CYTOLOGY ORDERABLES [facility] [phone] [facility] [place] [address] [address] [place] [phone] documented in this encounter Visit Diagnoses Diagnosis Well female exam with routine gynecological exam- Primary Routine gynecological examination Menstrual migraine without status migrainosus, not intractable Menstrual migraine, without mention of intractable migraine without mention of status migrainosus Vaginal discharge Leukorrhea, not specified as infective documented in this encounter
--- OUTSIDE RECORDS SUMMARY | 2024-05-27 15:51 | XMS_ITS | Encounter Summary ---
Author Organization [facility] Address [address] [place] [address] Care Team Providers Care Fur Storage Clerk Name Role Phone Unavailable Primary Care Provider Unavailabl e Reason for Visit * Reason Onset Date Comments DAINA PA APPROVED 02/06/2024 Encounter Details Date Type Department Care Team (Late st Contact Info) Description 02/06/2024 Telephone [facility] SUPERVISOR BRIDGES AND BUILDINGS - Medical [address] [address] Terrie Manning MD [address] [place] [address] ARLEYRELSETH PA APPROVED Social History [...] 10/08/2024 9:45 AM CDT Office Visit [facility] SUPERVISOR BRIDGES AND BUILDINGS - Medical [place] [address] [address] Terrie Manning MD [address] [place] [address] documented as of this encounter Visit Diagnoses Not on filedocumented in this encounter
--- OUTSIDE RECORDS SUMMARY | 2024-05-27 15:51 | XMS_ITS | Encounter Summary ---
Author Organization [facility] Address [address] [place] [address] Care Team Providers Care Project Controls Specialist Name Role Phone Unavailable Primary Care [...] CDT Office Visit [facility] YIELD ANALYST - Medical [facility] [address] [facility] [address] [place] [address] Terrie Manning MD 6[address]. [facility] [address] [place] [address] documented as of this encounter Visit Diagnoses Not on filedocumented in this encounter
--- OUTSIDE RECORDS SUMMARY | 2024-05-27 15:51 | XMS_ITS | Encounter Summary ---
Author Organization [facility] Address [address] [place] [address] Care Team Providers Care Customer Advocacy Manager Name Role Phone Unavailable Primary Care Provider Unavailabl e Reason for Visit * Reason Comments Well Woman Exam Encounter Details Date Type Department Care Team (Late st Contact Info) Description 09/27/2021 1:45 PM CDT Office Visit [facility] CLINICAL TRIALS NURSE - Medical [address] [address] Terrie Baca MD [address] [place] [address] Well female exam with routine [...] 2015 ??? HX WISDOM TEETH EXTRACTION ??? [place] DELIVERY ONLY N/A 08/21/2017 SECTION performed by Terrie Baca MD at [facility] ??? [place] DELIVERY ONLY N/A 04/01/2019 SECTION performed by Terrie Baca MD at [facility] ??? [place] DELIVERY ONLY N/A 06/19/2020 SECTION performed by Terrie Baca MD at [facility] ??? [place] COLONOSCOPY FLX DX W/COLLJ SPEC WHEN PFRMD 06/06/2013 COLONOSCOPY performed by Xavi Aquino MD at [facility] ??? [place] ESOPHAGOGASTRODUODENOSCOPY TRANSORAL DIAGNOSTIC 06/06/2013 ESOPHAGOGASTRODUODENOSCOPY performed by Xavi Aquino MD at [facility] ??? [place] HYSTEROSCOPY,W/ENDO BX N/A 08/11/2016 HYSTEROSCOPY WITH DILATATION AND CURETTAGE SUCTION performed by Dustin Bill MD at [facility] ??? [place] ORAL SURGERY Family History Problem Relation Name [...] 9:45 AM CDT Office Visit [facility] CLINICAL TRIALS NURSE - [facility] [address] [address] Terrie Baca MD [address] S[address] [facility] [address] [place] [address] documented as of this encounter [...] STI screening follows ACOG guidelines(PB 168, 140, XHP025). See individual assays for performing site location. [...] ithelial lesion or malignancy. COMMENT (PAP TEST) [facility] Comment: This Pap test has been evaluated with computer assisted technology. OPTICAL INSTRUMENT INSPECTOR: [facility] Comment: JENARO VARGHESE(ASCP) CT screening location: [place] [address] [place] [address] REVIEW OPTICAL INSTRUMENT INSPECTOR: [facility] Comment: JENARO ROMEO(ASCP) CT screening location: [place] [address] [place] [address] EXPLANATORY NOTE [facility] Comment: EXPLANATORY NOTE: The Pap is a [...] information. HPV E6/E7 Not Detected Not Detected [facility] Comment: Methodology: Washer And Crusher Tender-Mediated Amplification This assay detects E6/E7 viral messenger RNA (mRNA) from 14 high-risk HPV types (16,18,31,33,35,39,45,51,52,56,58,59,66,68). The analytical performance characteristics of this assay have been determined by [employer]. The modifications have not been cleared or approved by the FDA. This assay has been validated pursuant to the CLIA regulations and is used for clinical purposes. For additional information, please refer to http://education.SocialProof.ParaEngine/faq/PRV416n7 (This link if provided for information/ educational purposes only.) Test Performed at: [facility] [address] [place], [place] ??[phone] Vitaly Hardy D.O., MPH SL Genital SWAB OF ENDOCERVIX / Unknown 09/27/2021 2:25 PM CDT 09/28/2021 12:47 AM CDT Terrie Baca MD PATHOLOGY/CYTOLOGY ORDERABLES Performing Organization Address City/State/[place]UST Co de Phone Number [facility] [address] [place] [address] documented in this encounter Visit Diagnoses Diagnosis Well female exam with routine gynecological exam- Primary Routine gynecological examination Menorrhagia with regular cycle Excessive or frequent menstruation Anxiety state Anxiety state, unspecified Menstrual migraine without status migrainosus, not intractable Menstrual migraine, without mention of intractable migraine without mention of status migrainosus documented in this encounter
--- OUTSIDE RECORDS SUMMARY | 2024-05-27 15:51 | XMS_ITS | Encounter Summary ---
[facility] Address [address] [facility] Attn: Epic Prelude ADT TREE [place] [address] Care Team Providers Care Production Underwriter Name Role Phone Unavailable Primary Care Provider [...] COVID-19? No / Unsure 06/19/2020 5:36 AM FIREWORKS ASSEMBLY SUPERVISOR documented as of this encounter Miscellaneous Notes [...] of effective milk transfer, and satiety. Reviewed [id number] benefits. Reviewed diet and nutrition for mom. [...] and follow with ABM when needed. Increase lxsl-[id number]-lpof time between feedings to stimulate feeding cues. Keep a diary of feedings and diapers. Reviewed ways to get continued assistance with [facility]. Zone # on board, to call with further needs. Time: 30 minutes (out at 1015 & 1130) WORKS ASSEMBLY SUPERVISOR documented in this encounter Plan of Treatment Upcoming Encounters Date Type Department Care Team (Late st Contact Info) Description 10/08/2024 9:45 AM CDT Office Visit [facility] CATERING AND EVENTS MANAGER - Medical [facility] [address] [address] Terrie Manning MD [address] [facility] [address] [place] [address] documented as of this encounter Visit Diagnoses Not on filedocumented in this encounter
--- OUTSIDE RECORDS SUMMARY | 2024-05-27 15:51 | XMS_ITS | Encounter Summary ---
Author Organization [facility] Address [address] [place] [address] Care Team Providers Care Brick Cleaner Name Role Phone Unavailable Primary Care Provider Unavailabl e Reason for Visit * Reason Comments Post- Care Encounter Details Date Type Department Care Team (Late st Contact Info) Description 07/29/2020 11:10 AM LINE CONSTRUCTION SUPERINTENDENT Office Visit [facility] BREAD DOUGH MIXER - Medical [address] [address] Terrie Manning MD [address] [place] [address] Status post section routine follow-up [...] COVID-19? No / Unsure 07/29/2020 11:22 AM LINE CONSTRUCTION SUPERINTENDENT documented as of this encounter Last Filed Vital Signs Vital Sign Reading Time Taken Comments Blood Pressure 114/70 07/29/2020 11:31 AM LINE CONSTRUCTION SUPERINTENDENT Pulse - - Temperature - - Respiratory Rate - - Oxygen Saturation - - Inhaled Oxygen Concentration - - Weight 80.2 kg (176 lb 12.8 oz) 021 11:31 AM LINE CONSTRUCTION SUPERINTENDENT Height - - Body Mass Index 25.37 06/19/2020 6:19 AM LINE CONSTRUCTION SUPERINTENDENT documented in this encounter Progress Notes * [...] unless need arises prior Terrie Manning MD CONSTRUCTION SUPERINTENDENT documented in this encounter Plan of Treatment Upcoming Encounters Date Type Department Care Team (Late st Contact Info) Description 10/08/2024 9:45 AM CDT Office Visit [facility] BREAD DOUGH MIXER - Medical [facility] [address] [facility] [address] [place] [address] Terrie Manning MD [address] [facility] [address] [address] documented as of this encounter Visit Diagnoses Diagnosis Status post section routine follow-up- Primary Routine follow-up documented in this encounter
--- OUTSIDE RECORDS SUMMARY | 2024-05-27 15:51 | XMS_ITS | Clinical Summary ---
Author Organization [facility] Address [address] [place] [address] Phone Care Team Providers Care Medicaid Nurse Name Role Phone Unavailable Primary Care [...] Maternal Grandmother Alive Mother Alive Paternal Grandfather Sergio Billings Son Bob Alarcon Alive Social History [...] AM CDT Pulse 85 06/21/2020 12:42 AM MACHINE CONTAINER WASHER Temperature 36.9 ??C (98.5 ??F) 06/21/2020 7:26 AM CS T Respiratory Rate 18 06/21/2020 7:26 AM MACHINE CONTAINER WASHER Oxygen Saturation 99% 06/19/2020 10:14 AM MACHINE CONTAINER WASHER Inhaled Oxygen Concentration - - Weight 75.6 kg (166 lb 9.6 oz) 10/03/2023 10:08 AM CDT Height 180.1 cm (5' 10.9 ) 10/03/2023 10:08 AM C DT Body Mass Index 23.3 10/03/2023 10:08 AM CDT Plan of Treatment Upcoming Encounters Date Type Department Care Team (Late st Contact Info) Description 10/08/2024 9:45 AM CDT Office Visit [facility] CARDIAC CARE UNIT NURSE - Medical [facility] [address] [address] [address] Terrie Manning MD [address] [facility] [address] [address] Health Maintenance Due Date Last [...] exam WWE LAST MENSTRUAL PERIOD Latha Prather Comment:[id number] PREV PAP: Latha Prather Comment:NONE GIVEN PREV [...] has been evaluated with computer assisted technology. TOE POUNDER: Homer Prather Comment: LMT, CT(ASCP) CT screening location: [place] [address] [address] [place] [id number] REVIEW TOE POUNDER: Latha Prather Comment: DASILVA, CT(ASCP) CT Screening location: [facility] Administration [place]REE [place] [id number] Keyur Prather Comment: [...] and current clinical information. Test Performed at: [place] [address] [address] [place] ??[id number] Sarah Jay Genital SWAB OF ENDOCERVIX / Unknown 10/03/2023 1:46 PM CDT 10/04/2023 1:17 AM CDT Terrie Manning MD PATHOLOGY/CYTOLOGY ORDERABLES [facility] [phone] [place] [address] [address] [place] [phone] from Last 3 Months or Most Recently Relevant to Health Maintenance Advance Directives For more information, please contact: [phone] * Full Code (Latest Code Status on [...]
--- OUTSIDE RECORDS SUMMARY | 2024-05-27 15:51 | XMS_ITS | Encounter Summary ---
Author Organization [facility] Address [address] [place] [address] Care Team Providers Care Senior Budget Analyst Name Role Phone Unavailable Primary Care Provider [...] CDT Office Visit [facility] DIRECTOR HEALTH - Medical [facility] [address] [facility] [address] [place] [address] Terrie Manning MD [address] [facility] [address] [place] [address] documented as of this encounter Visit Diagnoses Not on filedocumented in this encounter
--- OUTSIDE RECORDS SUMMARY | 2024-05-27 15:51 | XMS_ITS | Encounter Summary ---
Author Organization [facility] Address [address] [place] [address] Care Team Providers Care Rate And Cost Analyst Name Role Phone Unavailable Primary Care Provider Unavailabl e Reason for Visit * Reason Onset Date Comments Medication Refill 06/15/2022 Encounter Details Date Type Department Care Team (Late Contact Info) Description 06/15/2022 Refill [facility] TECHNICAL PROGRAMS MANAGER [address] [address] Terrie Manning MD [address] [place] [address] Social History Tobacco Use Types Packs/Day [...] CDT Office Visit [facility] TECHNICAL PROGRAMS MANAGER - [address] [place] [address] Terrie Manning MD [address] [facility] [address] [address] documented as of this encounter Visit Diagnoses Not on filedocumented in this encounter
--- OUTSIDE RECORDS SUMMARY | 2024-05-27 15:51 | XMS_ITS | Encounter Summary ---
Author Organization [employer] Address [address] [place] [address] Care Team Providers Care Freelance Digital Project Manager Name Role Phone Unavailable Primary Care Provider Unavailabl e Reason for Referral * Radiology Services (Routine) - Closed Specialty Diagnoses / Procedures Referred By Contelia t Referred To Contact Radiology Diagnoses Screening mammogram, encounter for Procedures MAMMO SCRN BILAT 3D BOUBACAR W OR WO CAD CHG SCREENING MAMMOGRAPHY BI 2-VIEW BREAST INC CAD CHG SCREENING DIGITAL BREAST TOMOSYNTHESIS Terrie Manning MD [facility] [address] [place] [address] [facility] Breast [facility] [place] A [address] [place] [phone] Referral ID Status Reason Start Date Expiration Date Visits Re quested Visits Authorized [id number] Closed 09/27/2022 10/28/2023 1 1 Reason for Visit * Radiology Services (Routine) - Closed Specialty Diagnoses / Procedures Referred By Contac t Referred To Contact Radiology Diagnoses Screening mammogram, encounter for Procedures MAMMO SCRN BILAT 3D BOUBACAR W OR WO CAD CHG SCREENING MAMMOGRAPHY BI 2-VIEW BREAST INC CAD CHG SCREENING DIGITAL BREAST TOMOSYNTHESIS BI Terrie Manning MD [address] [facility] Suite [facility] [place] [address] [facility] A [address] [place] [address] Referral ID Status Reason Start Date Expiration Date Visits Re quested Visits Authorized [id number] Closed 09/27/2022 10/28/2023 1 1 Encounter Details Date Type Department Care Team (Latest Contact Info) Description 11/22/2022 1:56 PM CDT - 11/22/2022 11:59 PM CDT Hospital Encounter [facility] Medical [place] A [address] [place] [address] Terrie Manning MD [address] [facility] [address] [place] [address] Discharge Disposition: Home or Self [...] Visit [facility] INTERFACE CONTROL OFFICER - Medical [facility] [address] [facility] [address] [place] [address] Terrie Manning MD [address] [facility] [address] [address] documented as of this encounter [...] ??BI-RADS CATEGORY 1 - Negative DICTATION LOCATION: [facility] Narrative 11/22/2022 4:29 PM CDT EXAMINATION: BILATERAL [...] BI-RADS CATEGORY 1 - Negative DICTATION LOCATION: [facility] Terrie Manning MD MAMMO ORDERABLES documented in this encounter Visit Diagnoses Diagnosis Screening mammogram, encounter for documented in this encounter
--- OUTSIDE RECORDS SUMMARY | 2024-05-27 15:51 | XMS_ITS | Encounter Summary ---
Author Organization [facility] Address [address] [place] [address] Care Team Providers Care Head Automatic Sawyer Name Role Phone Unavailable Primary Care Provider [...] Office Visit [facility] SUPERVISOR LOOPING - Medical [facility] [address] [facility] [address] [place] [address] Terire Manning MD [address] [facility] [address] [place] [address] documented as of this encounter Visit Diagnoses Not on filedocumented in this encounter
--- OUTSIDE RECORDS SUMMARY | 2024-05-27 15:51 | XMS_ITS | Encounter Summary ---
Author Organization [facility] Address [address] [facility] Attn: [place] [address] Care Team Providers Care Acute Care Assistant Name Role Phone Unavailable Primary Care [...] AM CDT Office Visit [facility] YOKER MACHINE OPERATOR - Medical [facility] [address] [address] Terrie Manning MD [address] [facility] [address] [address] documented as of this encounter Visit Diagnoses Not on filedocumented in this encounter
--- OUTSIDE RECORDS SUMMARY | 2024-05-27 15:51 | XMS_ITS | Encounter Summary ---
Author Organization [facility] Address [address] [place] [address] Care Team Providers Care Optical Glass Wet Inspector Name Role Phone Unavailable Primary Care [...] CDT Office Visit [facility] ELECTRICAL APPRENTICE - Medical [facility] [address] [facility] [address] [place] [address] Terrie Manning MD [address] [facility] [address] [place] [address] documented as of this encounter Visit Diagnoses Not on filedocumented in this encounter
--- OUTSIDE RECORDS SUMMARY | 2024-05-27 15:51 | XMS_ITS | Encounter Summary ---
Author Organization [facility] Address [address] [facility] Attn: [place] [address] Care Team Providers Care Desk Manager Name Role Phone Unavailable Primary Care Provider Unavailabl e Encounter Details Date Type Department Care Team (Latest Contact Info) Description 07/03/2020 Travel Social History Tobacco Use Types Packs/Day [...] COVID-19? No / Unsure 07/03/2020 1:03 PM SERVICE GIRL documented as of this encounter Plan of Treatment Upcoming Encounters Date Type Department Care Team (Late st Contact Info) Description 10/08/2024 9:45 AM CDT Office Visit [facility] TOP FORMER - Medical [place] A [address] [address] [address] Terrie Manning MD [address] [facility] [address] [address] documented as of this encounter Visit Diagnoses Not on filedocumented in this encounter
--- OUTSIDE RECORDS SUMMARY | 2024-05-27 15:51 | XMS_ITS | Encounter Summary ---
Author Organization [facility] Address [address] [place] [address] Care Team Providers Care Manager Scheduling Name Role Phone Unavailable Primary Care Provider Unavailabl e Reason for Visit * Reason Comments Medication Refill Encounter Details Date Type Department Care Team ([facility] Contact Info) Description 04/18/2021 Refill [facility] WAITER/WAITRESS ECONOMY CLASS - [address] [address] Terrie Manning MD [address] [address] Social History Tobacco Use Types [...] Upcoming Encounters Date Type Department Care Team ([facility] Contact Info) Description 10/08/2024 9:45 AM CDT Office Visit [facility] WAITER/WAITRESS ECONOMY CLASS - [address] [address] Terrie Manning MD [address] [place], [place] [address]A [place] [address] documented as of this encounter Visit Diagnoses Not on filedocumented in this encounter
--- OUTSIDE RECORDS SUMMARY | 2024-05-27 15:51 | XMS_ITS | Encounter Summary ---
Author Organization [facility] Address [address] [facility] Attn: [place] [address] Care Team Providers Care Director Biomedical Engineering Name Role Phone Unavailable Primary Care Provider [...] COVID-19? No / Unsure 07/29/2020 11:22 AM PLATE PAINTER APPRENTICE documented as of this encounter Plan of Treatment Upcoming Encounters Date Type Department Care Team (Late st Contact Info) Description 10/08/2024 9:45 AM CDT Office Visit [facility] CLAY SHOP SUPERVISOR - Medical [place] A [address] [address] [address] Terrie Manning MD [address] [facility] [address] [address] documented as of this encounter Visit Diagnoses Not on filedocumented in this encounter
--- OUTSIDE RECORDS SUMMARY | 2024-05-27 15:51 | XMS_ITS | Encounter Summary ---
Author Organization [facility] Address [address] [place] [address] Care Team Providers Care Furnace Worker Name Role Phone Unavailable Primary Care Provider [...] Description 10/08/2024 9:45 AM CDT Office Visit [facility] SUPERVISOR CORE SHOP - Medical [facility] [address] [facility] [address] [place] [address] Terrie Manning MD [address] [facility] [address] [place] [address] documented as of this encounter Visit Diagnoses Not on filedocumented in this encounter
--- OUTSIDE RECORDS SUMMARY | 2024-05-27 15:51 | XMS_ITS | Encounter Summary ---
Author Organization [facility] Address [address] [place] [address] Care Team Providers Care Upholsterer Outside Name Role Phone Unavailable Primary Care Provider [...] 10/08/2024 9:45 AM CDT Office Visit [facility] HOT BRAIDER - Medical [facility] [address] [facility] [address] [place] [address] Terrie Manning MD [address] [facility] [address] [place] [address] documented as of this encounter Visit Diagnoses Not on filedocumented in this encounter
--- OUTSIDE RECORDS SUMMARY | 2024-05-27 15:52 | XMS_ITS | Encounter Summary ---
Author Organization [facility] Address [address] [place] [address] Care Team Providers Care Greenhouse Transplanter Name Role Phone Terrie Manning MD Primary Care Provider [phone]- [phone] Reason for Visit * Reason Comments Medication Refill Encounter Details Date Type Department Care Team (Late st Contact Info) Description 07/22/2019 Refill [facility] INSTITUTIONAL CUSTODIAN - Medical [address] [address] Terrie Manning MD [address] [facility] [address] [place] [address] Insomnia, unspecified type Social History [...] 07/23/2019 10:58 AM CST Approved and faxed. FITTER documented in this encounter Plan of Treatment Upcoming Encounters Date Type Department Care Team (Late st Contact Info) Description 10/08/2024 9:45 AM CDT Office Visit [facility] INSTITUTIONAL CUSTODIAN - [facility] [address] [address] Terrie Manning MD [address] [place] [address] documented as of this encounter Visit Diagnoses Diagnosis Insomnia, unspecified type documented in this encounter Care Teams Greenhouse Transplanter Relationship Specialty Start Date End Date Terrie Manning MD PCP - General Obstetrics and Gynecology 05/27/13 documented as of this encounter
--- OUTSIDE RECORDS SUMMARY | 2024-05-27 15:52 | XMS_ITS | Encounter Summary ---
Author Organization [facility] Address [address] [place] [address] Care Team Providers Care Check Totaler Name Role Phone Terrie Baca MD Primary Care Provider [phone]- [phone] Reason for Visit * Reason Comments Initial Visit Encounter Details Date Type Department Care Team (Late st Contact Info) Description 11/27/2019 3:00 PM CDT Initial [facility] ACCOUNT ANALYST - Medical [address] [address] Terrie Baca MD [address] [place] [address] History of chromosomal abnormality (Primary Dx); [...] CDT Office Visit [facility] ACCOUNT ANALYST - [facility] [address] [address] Terrie Baca MD [address] 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
--- OUTSIDE RECORDS SUMMARY | 2024-05-27 15:52 | XMS_ITS | Encounter Summary ---
Author Organization [facility] Address [address] [facility] Attn: [place] [phone] Care Team Providers Care Forensic Technician Name Role Phone Unavailable Primary Care [...] COVID-19? No / Unsure 06/02/2020 11:26 AM FRONT OFFICE SECRETARY documented as of this encounter Plan of Treatment Upcoming Encounters Date Type Department Care Team (Late st Contact Info) Description 10/08/2024 9:45 AM CDT Office Visit [facility] SMALL BATTERY PLATE ASSEMBLER - Medical [place] A [address] [address] [address] Terrie Manning MD [address] [facility] [address] [address] documented as of this encounter Visit Diagnoses Not on filedocumented in this encounter
--- OUTSIDE RECORDS SUMMARY | 2024-05-27 15:52 | XMS_ITS | Encounter Summary ---
Author Organization [facility] Address 5 [facility] Attn: [place] [address] Care Team Providers Care Wire Taper Name Role Phone Unavailable Primary Care Provider [...] COVID-19? No / Unsure 06/19/2020 5:36 AM POLYSOMNOGRAPHY TECHNICIAN documented as of this encounter Plan of Treatment Upcoming Encounters Date Type Department Care Team (Late st Contact Info) Description 10/08/2024 9:45 AM CDT Office Visit [facility] FAMILY LITERACY COORDINATOR - Medical [place] A [address] [address] [address] Terrie Manning MD [address] [facility] [address] [address] documented as of this encounter Visit Diagnoses Not on filedocumented in this encounter
--- OUTSIDE RECORDS SUMMARY | 2024-05-27 15:52 | XMS_ITS | Encounter Summary ---
Author Organization [facility] Address [address] [place] [address] Care Team Providers Care Precision Millwright Name Role Phone Terrie Manning MD Primary Care Provider +1- [phone] Encounter Details Date Type Department Care Team (Latest Contact Info) Description 04/22/2020 11:00 AM SCANNER OPERATOR - 04/22/2020 11:59 PM [facility] Hospital Encounter [facility] Laboratory Services Medical [place] [address] [place] [address], [place] [address] Terrie Manning MD [facility] S. [facility] [address] [address] Discharge Disposition: Home or Self [...] COVID-19? No / Unsure 04/22/2020 10:59 AM SCANNER OPERATOR documented as of this encounter Medications at [...] AM CDT Office Visit [facility] ROOM INSPECTOR - Medical [facility] Suite [facility] [address] [address] Terrie Manning MD [address] [place] [address] documented as of this encounter Procedures Procedure Name Priority Date/Time Associated Diagnosis Comments GLUCOSE TOLERANCE 1 HR GESTATIONAL Routine 04/22/2020 12:06 PM SCANNER OPERATOR with 28 completed weeks gestation CBC WITH DIFFERENTIAL Routine 04/22/2020 12:06 PM SCANNER OPERATOR Encounter for screening of mother TSH Routine 04/22/2020 12:06 PM SCANNER OPERATOR Encounter for screening of mother documented in this encounter Results * (ABNORMAL) CBC WITH DIFFERENTIAL (04/22/2020 12:06 PM SCANNER OPERATOR) [facility] WBC 6.7 4.0 - 9.8 K/uL 04/22/2020 12:27 PM SCANNER OPERATOR [facility] LABORATORY SERVICES [facility] RBC 3.31(L) 3.90 - 4.90 M/uL 04/22/2020 12:27 PM SCANNER OPERATOR [facility] LABORATORY SERVICES [facility] HEMOGLOBIN 10.3(L) 11.8 - 14.8 g/dL 04/22/2020 12:27 PM SCANNER OPERATOR [facility] LABORATORY SERVICES [facility] HEMATOCRIT 33.1(L) 35.5 - 44.0 % 04/22/2020 12:27 PM SCANNER OPERATOR [facility] - . [facility] MCV 100.0(H) 82.0 - 99.0 fL 04/22/2020 12:27 PM SCANNER OPERATOR [facility] - . [facility] MCH 31.1 27.2 - 32.6 pg 04/22/2020 12:27 PM SCANNER OPERATOR [facility] - [facility] MCHC 31.1(L) 31.5 - 35.5 g/dL 04/22/2020 12:27 PM SCANNER OPERATOR [facility] - . [facility] RDW 13.2 11.5 - 14.5 % 04/22/2020 12:27 PM SCANNER OPERATOR [facility] - [facility] RDW-STDEV 49.2(H) 37.1 - 48.7 fL 04/22/2020 12:27 PM SCANNER OPERATOR [facility] - [facility] PLATELETS 263 140 - 350 K/uL 04/22/2020 12:27 PM SCANNER OPERATOR [facility] - [facility] MPV 8.9(L) 9.3 - 12.4 fL 04/22/2020 12:27 PM SCANNER OPERATOR [facility] - . [facility] NEUTROPHILS 71 % 04/22/2020 12:27 PM SCANNER OPERATOR [facility] - . [facility] LYMPHOCYTES 18 % 04/22/2020 12:27 PM SCANNER OPERATOR [facility] - . [facility] MONOCYTES 10 % 04/22/2020 12:27 PM SCANNER OPERATOR [facility] - . [facility] EOSINOPHILS 1 % 04/22/2020 12:27 PM SCANNER OPERATOR [facility] - . [facility] BASOPHILS 0 % 04/22/2020 12:27 PM SCANNER OPERATOR [facility] - . [facility] IMMATURE GRANULOCYTES 1 % 04/22/2020 12:27 PM SCANNER OPERATOR [facility] - . [facility] Comment:IG (Immature Granulo cyte) count includes Metamyelocytes, Myelocytes, and Promyelocytes NEUTROPHIL ABSOLUTE 4.74 1.90 - 7.00 K/uL 04/22/2020 12:27 PM SCANNER OPERATOR [facility] - . [facility] LYMPHOCYTE ABSOLUTE 1.19 0.70 - 4.50 K/uL 04/22/2020 12:27 PM SCANNER OPERATOR [facility] - . [facility] MONOCYTE ABSOLUTE 0.65 0.10 - 1.30 K/uL 04/22/2020 12:27 PM SCANNER OPERATOR [facility] - . [place] EOSINOPHIL ABSOLUTE 0.03 0.00 - 0.70 K/uL 04/22/2020 12:27 PM SCANNER OPERATOR [facility] LABOR[facility]ORY [facility] BASOPHILS ABSOLUTE 0.01 0.00 - 0.20 K/uL 04/22/2020 12:27 PM SCANNER OPERATOR [facility] LABORATORY [facility] IMMATURE GRANULOCYTES ABSOLUTE 0.04(H) 0.00 - 0.03 K/uL 04/22/2020 12:27 PM SCANNER OPERATOR [facility]OR[facility] Blood Venipuncture / Unknown 04/22/2020 12:06 PM SCANNER OPERATOR 04/22/2020 12:19 PM SCANNER OPERATOR Terrie Manning MD HEMATOLOGY ORDERAB LES [facility]# [id number] [address] [place] [address] * TSH (04/22/2020 12:06 PM SCANNER OPERATOR) TSH 0.75 0.27 - 4.20 uIU/mL 04/22/2020 1:16 PM SCANNER OPERATOR [facility] [employer] [facility] Blood Venipuncture / Unknown 04/22/2020 12:06 PM SCANNER OPERATOR 04/22/2020 12:18 PM SCANNER OPERATOR Terrie Manning MD CHEMISTRY ORDERABL ES Performing Organization Address City/[facility]/ZIP Co de Phone Number [facility]# [id number] [address] [place] [address] * GLUCOSE TOLERANCE 1 HR GESTATIONAL (04/22/2020 12:06 PM SCANNER OPERATOR) GLUCOSE DOSE 50 Gram 04/22/2020 1:09 PM SCANNER OPERATOR [facility] GLUCOSE 1 HR OBSTETRIC 87 65 - 139 mg/dL 04/22/2020 1:09 PM SCANNER OPERATOR [facility] LABOR[facility]ORY [facility] Blood Venipuncture / Unknown 04/22/2020 12:06 PM SCANNER OPERATOR 04/22/2020 12:18 PM SCANNER OPERATOR Terrie Manning MD CHEMISTRY ORDERABL ES [facility] LABORATORY [facility]# [id number] [address] [place] [address] documented in this encounter Visit Diagnoses Diagnosis with 28 completed weeks gestation Encounter for screening of mother Unspecified screening documented in this encounter Care Teams Precision Millwright Relationship Specialty Start Date End Date Terrie Manning MD PCP - General Obstetrics and Gynecology 05/27/13 documented as of this encounter
--- OUTSIDE RECORDS SUMMARY | 2024-05-27 15:52 | XMS_ITS | Encounter Summary ---
Author Organization [facility] Address [address] [place] [address] Care Team Providers Care Refrigeration Insulator Name Role Phone Terrie Baca MD Primary Care Provider +1- [phone] Reason for Visit * Reason Comments Routine Visit Encounter Details Date Type Department Care Team (Late st Contact Info) Description 02/26/2020 11:30 AM CDT visit [facility] DELIVERY DRIVER ASSISTANT - Medical [address] [address] Terrie Baca MD [address] [place] [address] 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 [...] AM CDT Office Visit [facility] DELIVERY DRIVER ASSISTANT - Medical [facility] [address] [facility] [address] [place] [address] Terrie Baca MD [address] 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
--- OUTSIDE RECORDS SUMMARY | 2024-05-27 15:52 | XMS_ITS | Encounter Summary ---
Author Organization [facility] Address [address] [place] [address] Care Team Providers Care Box Car Loader Name Role Phone Terrie Baca MD Primary Care Provider +1- [phone] Reason for Visit * Reason Comments Routine Visit Encounter Details Date Type Department Care Team (Late st Contact Info) Description 04/22/2020 11:30 AM FENCE POST CUTTER [facility] MUSSEL FARMER - Medical [address] [address] Terrie Baca MD [address] [place] [address] 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 [...] COVID-19? No / Unsure 04/22/2020 10:59 AM FENCE POST CUTTER documented as of this encounter Last Filed Vital Signs Vital Sign Reading Time Taken Comments Blood Pressure 124/72 04/22/2020 11:45 AM FENCE POST CUTTER Pulse - - Temperature - - Respiratory Rate - - Oxygen Saturation - - Inhaled Oxygen Concentration - - Weight 81.6 kg (179 lb 12.8 oz) 020 11:45 AM FENCE POST CUTTER Height - - Body Mass Index 25.8 [...] call/come with further questions/concerns. Terrie Baca MD E POST CUTTER documented in this encounter Plan of Treatment Upcoming Encounters Date Type Department Care Team (Late st Contact Info) Description 10/08/2024 9:45 AM CDT Office Visit [facility] MUSSEL FARMER - [facility] [address] [address] [address] Terrie Baca MD [address] [facility] [address] [place] [address] documented as of this encounter Results * (ABNORMAL) CBC WITH DIFFERENTIAL (04/22/2020 12:06 PM FENCE POST CUTTER) WBC 6.7 4.0 - 9.8 K/uL 04/22/2020 12:27 PM [facility] - [facility] RBC 3.31(L) 3.90 - 4.90 M/uL 04/22/2020 12:27 PM [facility] - [facility] HEMOGLOBIN 10.3(L) 11.8 - 14.8 g/dL 04/22/2020 12:27 PM FENCE POST CUTTER [facility] - [facility] HEMATOCRIT 33.1(L) 35.5 - 44.0 % 04/22/2020 12:27 PM FENCE POST CUTTER [facility] - [facility] MCV 100.0(H) 82.0 - 99.0 fL 04/22/2020 12:27 PM FENCE POST CUTTER [facility] - [facility] MCH 31.1 27.2 - 32.6 pg 04/22/2020 12:27 PM FENCE POST CUTTER [facility] - [facility] MCHC 31.1(L) 31.5 - 35.5 g/dL 04/22/2020 12:27 PM [facility] LABORATORY SERVICES - [facility] RDW 13.2 11.5 - 14.5 % 04/22/2020 12:27 PM FENCE POST CUTTER [facility] - [facility] RDW-STDEV 49.2(H) 37.1 - 48.7 fL 04/22/2020 12:27 PM FENCE POST CUTTER [facility] - [facility] PLATELETS 263 140 - 350 K/uL 04/22/2020 12:27 PM FENCE POST CUTTER [facility] - [facility] MPV 8.9(L) 9.3 - 12.4 fL 04/22/2020 12:27 PM [facility] - . [facility] NEUTROPHILS 71 % 04/22/2020 12:27 PM FENCE POST CUTTER [facility] - . [facility] LYMPHOCYTES 18 % 04/22/2020 12:27 PM FENCE POST CUTTER [facility] - . [facility] MONOCYTES 10 % 04/22/2020 12:27 PM FENCE POST CUTTER [facility] - . [facility] EOSINOPHILS 1 % 04/22/2020 12:27 PM FENCE POST CUTTER [facility]. [facility] BASOPHILS 0 % 04/22/2020 12:27 PM [facility] - . [facility] IMMATURE GRANULOCYTES 1 % 04/22/2020 12:27 PM FENCE POST CUTTER [facility] - [facility] Comment:IG (Immature Granulo cyte) count includes Metamyelocytes, Myelocytes, and Promyelocytes NEUTROPHIL ABSOLUTE 4.74 1.90 - 7.00 K/uL 04/22/2020 12:27 PM FENCE POST CUTTER [facility] LABORATORY SERVICES - [facility] LYMPHOCYTE ABSOLUTE 1.19 0.70 - 4.50 K/uL 04/22/2020 12:27 PM FENCE POST CUTTER [facility] LABORATORY SERVICES - . [facility] MONOCYTE ABSOLUTE 0.65 0.10 - 1.30 K/uL 04/22/2020 12:27 PM FENCE POST CUTTER [facility] LABORATORY SERVICES - [facility] EOSINOPHIL ABSOLUTE 0.03 0.00 - 0.70 K/uL 04/22/2020 12:27 PM FENCE POST CUTTER [facility] LABORATORY SERVICES - [facility] BASOPHILS ABSOLUTE 0.01 0.00 - 0.20 K/uL 04/22/2020 12:27 PM FENCE POST CUTTER [facility] LABORATORY SERVICES - . [facility] IMMATURE GRANULOCYTES ABSOLUTE 0.04(H) 0.00 - 0.03 K/uL 04/22/2020 12:27 PM FENCE POST CUTTER [facility] LABORATORY SERVICES - [facility] Blood Venipuncture / Unknown 04/22/2020 12:06 PM FENCE POST CUTTER 04/22/2020 12:19 PM FENCE POST CUTTER Terrie Baca MD HEMATOLOGY ORDERAB LES [facility] Consumer Agent Portal (CAP) [facility] CLIA# [id number] [address] [place] [address] * TSH (04/22/2020 12:06 PM FENCE POST CUTTER) TSH 0.75 0.27 - 4.20 uIU/mL 04/22/2020 1:16 PM FENCE POST CUTTER [facility] LABORATORY [facility] Blood Venipuncture / Unknown 04/22/2020 12:06 PM FENCE POST CUTTER 04/22/2020 12:18 PM FENCE POST CUTTER Terrie Baca MD CHEMISTRY ORDERABL ES [facility] CLIA# [id number] [address] [place] [address] documented in this encounter Visit Diagnoses Diagnosis 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
--- OUTSIDE RECORDS SUMMARY | 2024-05-27 15:52 | XMS_ITS | Encounter Summary ---
Author Organization [facility] Address [address] [place] [address] Care Team Providers Care Invoicing Specialist Name Role Phone Unavailable Primary Care Provider Unavailabl e Reason for Visit * Reason Comments Routine Visit Encounter Details Date Type Department Care Team (Late st Contact Info) Description 06/02/2020 12:30 PM LIVESTOCK AGENT visit [facility] CLAIMS SERVICE REPRESENTATIVE - Medical [address] [address] Terrie Baca MD [address] [place] [address] Trisomy 18 in child of [...] COVID-19? No / Unsure 06/02/2020 11:26 AM LIVESTOCK AGENT documented as of this encounter Last Filed Vital Signs Vital Sign Reading Time Taken Comments Blood Pressure 110/70 06/02/2020 12:41 PM LIVESTOCK AGENT Pulse - - Temperature - - Respiratory Rate - - Oxygen Saturation - - Inhaled Oxygen Concentration - - Weight 86.5 kg (190 lb 12.8 oz) 020 12:41 PM LIVESTOCK AGENT Height - - Body Mass Index 27.38 [...] call/come with further questions/concerns. Terrie Baca MD STOCK AGENT documented in this encounter Plan of Treatment Upcoming Encounters Date Type Department Care Team (Late st Contact Info) Description 10/08/2024 9:45 AM CDT Office Visit [facility] CLAIMS SERVICE REPRESENTATIVE - Medical [facility] [address] [address] Terrie Baca MD [address] 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
--- OUTSIDE RECORDS SUMMARY | 2024-05-27 15:52 | XMS_ITS | Encounter Summary ---
Author Organization [facility] Address [address] [facility] Attn: [place] [address] Care Team Providers Care Pasteurizer Helper Name Role Phone Terrie Manning MD Primary Care Provider +1- [phone] Encounter Details Date Type Department Care Team [...] COVID-19? No / Unsure 04/22/2020 10:59 AM LEARNING AND DEVELOPMENT ASSISTANT documented as of this encounter Plan of Treatment Upcoming Encounters Date Type Department Care Team (Late st Contact Info) Description 10/08/2024 9:45 AM CDT Office Visit [facility] INDUSTRIAL DESIGN ENGINEER - Medical [place] [address] [place] [phone] Terrie Manning MD [address] [phone] documented as of this encounter Visit Diagnoses Not on filedocumented in this encounter Care Teams Pasteurizer Helper Relationship Specialty Start Date End Date Terrie Manning MD PCP - General Obstetrics and Gynecology 05/27/13 documented as of this encounter
--- OUTSIDE RECORDS SUMMARY | 2024-05-27 15:52 | XMS_ITS | Encounter Summary ---
Author Organization [facility] Address [address] [facility] Attn: [place] [address] Care Team Providers Care Senior Product Manager Name Role Phone Terrie Manning MD Primary Care Provider +1- [phone] Encounter Details Date Type Department Care Team [...] Description 10/08/2024 9:45 AM CDT Office Visit [facility] ROLL TRUCKER - Medical [place] [address] [place] [phone] Terrie Manning MD [address] [address] documented as of this encounter Visit Diagnoses Not on filedocumented in this encounter Care Teams Senior Product Manager Relationship Specialty Start Date End Date Terrie Manning MD PCP - General Obstetrics and Gynecology 05/27/13 documented as of this encounter
--- OUTSIDE RECORDS SUMMARY | 2024-05-27 15:52 | XMS_ITS | Encounter Summary ---
Author Organization [facility] Address [address] [place] [address] Care Team Providers Care Development Executive Name Role Phone Terrie Manning MD Primary Care Provider +1- [phone] Reason for Visit * Reason Onset Date Comments follow up 3 month after 0 Encounter Details Date Type Department Care Team (Late st Contact Info) Description 07/03/2019 Telephone [facility] Labor & [address] [place] [address] Odalis Schneider, RN follow up [...] Odalis Schneider RN - 07/03/2019 11:29 AM ASSOCIATE EDITOR Called to check on Angela frederic Nguyen given it has been 3 weeks since the of their daughter, Flaco. No answer. I left a voicemail letting them know we are thinking of them and Flaco. I encouraged her to call back at her convenience. Provided [facility] Phone Number. Mary [facility] [phone] CIATE EDITOR documented in this encounter Plan of Treatment Upcoming Encounters Date Type Department Care Team (Late st Contact Info) Description 10/08/2024 9:45 AM CDT Office Visit [facility] SILVER STEWARD - [place] [address] [address] Terrie Manning MD [address] [place] [address] documented as of this encounter Visit Diagnoses Not on filedocumented in this encounter Care Teams Development Executive Relationship Specialty Start Date End Date Terrie Manning MD PCP - General Obstetrics and Gynecology 05/27/13 documented as of this encounter
--- OUTSIDE RECORDS SUMMARY | 2024-05-27 15:52 | XMS_ITS | Encounter Summary ---
Author Organization [facility] Address [address] [place] [address] Care Team Providers Care Reservations Agent Name Role Phone Terrie Manning MD Primary Care Provider +1- [phone] Reason for Visit * Reason Onset Date Comments KDL\rn call 11/06/2019 Encounter Details Date Type Department Care Team (Late st Contact Info) Description 11/06/2019 Telephone [facility] INTERMEDIATE ACCOUNTANT - Medical [address] [address] Terrie Manning MD [facility] [address] [address] KDL\rn call Social History Tobacco [...] AM CDT Office Visit [facility] INTERMEDIATE ACCOUNTANT - Medical [facility] [address] [address] [address] Terrie Manning MD [facility] [address] [place] [address] documented as of this encounter Visit Diagnoses Not on filedocumented in this encounter Care Teams Reservations Agent Relationship Specialty Start Date End Date Terrie Manning MD PCP - General Obstetrics and Gynecology 05/27/13 documented as of this encounter
--- OUTSIDE RECORDS SUMMARY | 2024-05-27 15:52 | XMS_ITS | Encounter Summary ---
Author Organization [facility] Address [address] [place] [address] Care Team Providers Care Fusing Machine Feeder Name Role Phone Terrie Manning MD Primary Care Provider +1- [phone] Encounter Details Date Type Department Care Team (Late st Contact Info) Description 12/18/2019 Orders Only [facility] LIGHTER - Medical [address] [address] Terrie Manning MD [address] [place] [address] Social History Tobacco Use Types [...] Description 10/08/2024 9:45 AM CDT Office Visit [facility] LIGHTER - Medical [facility] [address] [address] Terrie Manning MD [address] [facility][Note 3] [address] [address] documented as of this encounter Visit Diagnoses Not on filedocumented in this encounter Care Teams Fusing Machine Feeder Relationship Specialty Start Date End Date Terrie Manning MD PCP - General Obstetrics and Gynecology 05/27/13 documented as of this encounter
--- OUTSIDE RECORDS SUMMARY | 2024-05-27 15:52 | XMS_ITS | Encounter Summary ---
Author Organization [facility] Address [address] [place] [address] Care Team Providers Care Boring Mill Set Up Operator Vertical Name Role Phone Unavailable Primary Care Provider Unavailabl e Reason for Visit * Auth/Cert Specialty Diagnoses / Procedures Referred By Tashaac t Referred To Contact Obstetrics Diagnoses EDC: 07/15/20 Repeat Classical Procedures SECTION [facility] Mother Baby [address]c [address] [place] [address] Referral ID Status Reason Start Date Expiration Date Visits Re quested Visits Authorized [id number] 1 1 Encounter Details Date Type Department Care Team (Late st Contact Info) Description 06/19/2020 7:30 AM WORSHIP PASTOR - 06/19/2020 9:00 AM WORSHIP PASTOR Surgery [facility] Labor & [address] [place] [address] Terrie Baca MD [address] [facility] [address] [place] [address] SECTION Surgery Details Date/Time Status Location OR Service Patient Class Case Class Case Type Trauma Case? 06/19/2020 7:30 AM Posted [facility] L[facility]D C-S A Obstetrics Surgery Admit Elective [...] COVID-19? No / Unsure 06/19/2020 5:36 AM WORSHIP PASTOR documented as of this encounter Last Filed Vital Signs Vital Sign Reading Time Taken Comments Blood Pressure 106/89 06/19/2020 9:00 AM WORSHIP PASTOR Pulse 93 06/19/2020 9:00 AM WORSHIP PASTOR Temperature 36.7 ??C (98 ??F) 06/19/2020 6:19 AM WORSHIP PASTOR Respiratory Rate 20 06/19/2020 9:00 AM WORSHIP PASTOR Oxygen Saturation 100% 06/19/2020 9:00 AM WORSHIP PASTOR Inhaled Oxygen Concentration - - Weight 87.1 kg (192 lb) 06/19/2020 6:19 AM WORSHIP PASTOR Height 177.8 cm (5' 10 ) 06/19/2020 6:19 AM WORSHIP PASTOR Body Mass Index 27.55 06/19/2020 6:19 AM WORSHIP PASTOR documented in this encounter Discharge Summaries * Terrie Baca MD - 06/21/2020 9:30 AM CST Physician Discharge Summary - Delivery Patient: Angela Alarcon / 34 y.o. / female : 1985 Admit date: 06/19/2020 Discharge date: 06/21/2020 Attending Physician0 : Terrie Baca MD Data: Information for the patient's : Ivana [id number] [[id number]] Information for the patient's : [id number] [[id number]] tab Discharge Diagnosis 1. non-labor Hospital Procedures 1. none. Pertinent History & Physical See H&P. Hospital Course Uncomplicated. Discharge Labs HEMOGLOBIN Date Value Ref Range Status 06/19/2020 10.2 (L) 11.8 - 14.8 g/dL Final PLATELETS Date Value Ref Range Status 06/19/2020 197 140 - 350 K/uL Final Discharge Condition:[id number] stable. Disposition She is discharged to home. [...] Your Medications [address] [facility] [address] Hours: Monday-Monday: 8 a.m. - 8 p.m., Monday: 9 a.m. - 5 p.m., Monday: 10 a.m. - 4 p.m. ?? ibuprofen 600 mg tablet ?? oxyCODONE 5 mg tablet Terrie Baca MD HIP PASTOR documented in this encounter Discharge Instructions * Discharge Instructions* Judie Hooker RN - 06/21/2020 9:33 AM WORSHIP PASTOR Images from the original note were not [...] feeding ?? For advice call: information line [phone] IF BOTTLE FEEDING ?? Avoid breast stimulation, [...] can help. Sometimes medicine can also help [facility] offers an Intensive Outpatient Program for women with mood disorder and depression. This supportive environment gives mothers a chance to talk with other mothers who face similar challenges. Families and partners will also learn new ways to support you. For more information, please contact our Intake Office at [phone]. After hours: [phone]. NEED SUPPORT AFTER YOU ARE HOME? [facility] now offers outpatient consult appointments. An International Board-Certified Economic Development Specialist is available to help if you need support after you and your arehome. Appointments are approximately one hour long and take place in the Department of Ser vices (second floor of [facility] near the NICU) Many insurance plans offer coverage for this service. Please call [phone], our Information line, to schedule your appointment or to get support by phone. Same or next day appointments are often available. Where can you learn more? Go to [email or web address].Localo.net/patiented Enter G069 in the search box to learn more about Your [place] at Home: Care Instructions. Enter Y708 in the search box to learn more about Learning About Rescue Breathing and CPR for Babies Under 1 Year. / Resources During Covid-19 Phone Consults & Visits Call [phone] to ask questions about . If needed, our team can schedule a video visit with you. Virtual with Confidence On Wednesdays, 1-2 pm., join us for a group meeting via videoconference facilitated by a professional. Ask questions, get advice! To register: Visit [employer]kandy and select [facility] Birthplace / View Classes / Support Once [...] leave a message for the nurse at [phone]. Please note these messages are picked up as time allows and are not intended to replace advise from your physician.If you need is urgent, please contact your or your baby's physician. HIP PASTOR documented in this encounter Medications at Time [...] and will be transported via private vehicle. HIP PASTOR * Terrie Baca MD - 06/21/2020 9:27 [...] to go home today. Terrie Baca MD HIP PASTOR * Odalis Bender MD - 06/21/2020 7:37 [...] pain meds 3. Anxiety: Gary Bender MD Surface Grinding Machine Hand PGY-1 Pager: [phone] HIP PASTOR * Jae Lugo, - 06/20/2020 7:15 AM [...] Zoloft Octaviano Way DO PGY1 Dept. of Surface Grinding Machine Hand Pager: [phone] Seen and examined. Agree with plan. Dr. Lugo HIP PASTOR * Terrie Baca MD - 06/19/2020 7:31 [...] be present at delivery. Terrie Baca MD HIP PASTOR * Maira Franz RN - 06/18/2020 11:28 [...] Currently on Zoloft Opportunity provided for questions. Vice President Global Advertising Sales required: N/A Maira Franz RN HIP PASTOR documented in this encounter H&P Notes * [...] No observed anomalies 1 SAB 08/2016 SAB GLAZE CARRIER Hx: remote history of abnormal Pap smears, [...] 2015 ??? HX WISDOM TEETH EXTRACTION ??? DE DELIVERY ONLY N/A 08/21/2017 SECTION performed by Terrie Baca MD at [facility] ??? DE DELIVERY ONLY N/A 04/01/2019 SECTION performed by Terrie Baca MD at [facility] ??? DE COLONOSCOPY FLX DX W/COLLJ SPEC WHEN PFRMD 06/06/2013 COLONOSCOPY performed by Xavi Aquino MD at [facility] ??? DE ESOPHAGOGASTRODUODENOSCOPY TRANSORAL DIAGNOSTIC 06/06/2013 ESOPHAGOGASTRODUODENOSCOPY performed by Xavi Aquino MD at [facility] ??? DE HYSTEROSCOPY,W/ENDO BX N/A 08/11/2016 HYSTEROSCOPY WITH DILATATION AND CURETTAGE SUCTION performed by Dustin Bill MD at [facility] ??? DE ORAL SURGERY FHx: Negative for genetic tendencies, [...] FHR: 150, mod variability, +accels, no decels [place]: quiet Assessment/Plan: 34 y.o. @ 36w2d admitted [...] pre-op antibiotics for prophylaxis 6. Anxiety: Continue CONSUMER INSIGHTS SPECIALIST Zoloft, NICU for collect on delivery clerk discussed with Dr. Nigel Jones MD SUPERVISOR WET END PGY-3 Pager: HIP PASTOR documented in this encounter OR Notes * Anesthesiology - Georgie Hebert CRNA - 06/20/2020 3:33 AM CST Discussed post-op pain management plan with attending anesthesiologist. Epidural pulled in accordance with prescribed plan. Epidural pulled due to dressing failure (clamp disconnected). Tip was intact. Site is clean dry and without erythema. Georgie Hebert CRNA 06/20/2020 3:33 AM HIP PASTOR * Anesthesiology Georgie Yusuf CRNA - 06/20/2020 [...] complications Georgie Hebert CRNA 06/20/2020 6:08 AM HIP PASTOR * Operative Report - Terrie Baca MD - 06/19/2020 8:34 AM CST Section Operative Note Date of Procedure: 06/19/2020 Procedure: repeat low transverse section via Pfannenstiel incision Pre-operative Diagnosis: 1. 34 y.o. with IUP @ 36w2d 2. History of T incision Post-operative Diagnosis: same Surgeon: Terrie Baca MD Camera Tuning Engineer: Frederick Jovel DO Anesthesia: spinal QBL: 660 [...] to recovery in stable condition. Frederick Jovel, HIP PASTOR documented in this encounter Miscellaneous Notes * Care Plan - Odalis Araiza RN - 06/21/2020 5:15 AM CST VSS. Fundus firm, Lochia WNL. Incision C/D/I. Independent in ADLs. Voiding without difficulty. Painwell controlled with PO Motrin, Tylenol, and Shauna. Breast feeding well. HIP PASTOR * Care Plan - Betzy Tom RN - 06/20/2020 5:23 PM CST Pain is controlled with PO pain medications. Patient is ambulating independently and voiding without difficulty. VSS. successfully. Applying ice to incision. Progressing towards discharge goals. HIP PASTOR * Care Plan - Judie Hooker RN - 06/20/2020 2:20 PM CST Pt's fundus remains firm and bleeding is light. Pain is well controlled with PO motrin, tylenol, and shauna. VSS. Progressing towards discharge. HIP PASTOR * Care Plan - Hayley Vela RN - 06/20/2020 6:27 AM CST VSS. Pt up and voiding without difficulty. Epidural dc'd after becoming disconnected. Pt's pain well controlled with po pain meds. Resting comfortably throughout the night. HIP PASTOR * Treatment Plan - Lillian No RN - 06/19/2020 5:39 AM CST Images from the original note were not included. Pre-operative Protocol [facility] ORDERS ARE ENTERED ???PER PROTOCOL?? Follow this protocol for all section patients (scheduled and unscheduled). Enter the protocol in the patient???s electronic health record using [employer]: .cesareanbirthprotocol Nursing Orders: o Initiate the Pathway [...] 01/2018 Adult Influenza and/or Pneumococcal Vaccine Protocol [facility] ORDERS ARE ENTERED ???PER PROTOCOL?? Enter the [...] Nursing Leadership, Pharmacy & Therapeutics CommitteeDate: 01/2018 HIP PASTOR documented in this encounter Plan of Treatment Upcoming Encounters Date Type Department Care Team (Late st Contact Info) Description 10/08/2024 9:45 AM CDT Office Visit [facility] SUPERVISOR WET END - [facility] [address] [address] [address] Terrie Baca MD [address] [facility] [address] [place] [address] documented as of this encounter Procedures Procedure Name Priority Date/Time Associated Diagnosis Comments SECTION 06/19/2020 7:30 AM WORSHIP PASTOR EDC: 07/15/20 * Repeat Classical CBC WITH DIFFERENTIAL Routine 06/19/2020 6:03 AM WORSHIP PASTOR TYPE AND SCREEN Routine 06/19/2020 6:03 AM WORSHIP PASTOR documented in this encounter Results * (ABNORMAL) CBC WITH DIFFERENTIAL (06/19/2020 6:03 AM WORSHIP PASTOR) [facility] WBC 5.8 4.0 - 9.8 K/uL 06/19/2020 6:43 AM WORSHIP PASTOR [facility] RBC 3.31(L) 3.90 - 4.90 M/uL 06/19/2020 6:43 AM WORSHIP PASTOR [facility] HEMOGLOBIN 10.2(L) 11.8 - 14.8 g/dL 06/19/2020 6:43 AM WORSHIP PASTOR [facility] HEMATOCRIT 32.4(L) 35.5 - 44.0 % 06/19/2020 6:43 AM WORSHIP PASTOR [facility] MCV 97.9 82.0 - 99.0 fL 06/19/2020 6:43 AM WORSHIP PASTOR [facility] MCH 30.8 27.2 - 32.6 pg 06/19/2020 6:43 AM WORSHIP PASTOR [facility] MCHC 31.5 31.5 - 35.5 g/dL 06/19/2020 6:43 AM WORSHIP PASTOR [facility] RDW 13.5 11.5 - 14.5 % 06/19/2020 6:43 AM WORSHIP PASTOR [facility] RDW-STDEV 48.7 37.1 - 48.7 fL 06/19/2020 6:43 AM WORSHIP PASTOR [facility] PLATELETS 197 140 - 350 K/uL 06/19/2020 6:43 AM WORSHIP PASTOR [facility] MPV 9.6 9.3 - 12.4 fL 06/19/2020 6:43 AM WORSHIP PASTOR [facility] NEUTROPHILS 65 % 06/19/2020 6:43 AM WORSHIP PASTOR [facility] LYMPHOCYTES 23 % 06/19/2020 6:43 AM WORSHIP PASTOR [facility] MONOCYTES 10 % 06/19/2020 6:43 AM WORSHIP PASTOR [facility] EOSINOPHILS 1 % 06/19/2020 6:43 AM [facility] BASOPHILS 0 % 06/19/2020 6:43 AM [facility] IMMATURE GRANULOCYTES 1 % 06/19/2020 6:43 AM [facility]OR[facility] Comment:IG (Immature Granulo cyte) count includes Metamyelocytes, Myelocytes, and Promyelocytes NEUTROPHIL ABSOLUTE 3.79 1.90 - 7.00 K/uL 06/19/2020 6:43 AM [facility] LYMPHOCYTE ABSOLUTE 1.36 0.70 - 4.50 K/uL 06/19/2020 6:43 AM [facility] [employer] [facility] MONOCYTE ABSOLUTE 0.57 0.10 - 1.30 K/uL 06/19/2020 6:43 AM [facility] [employer] [facility] EOSINOPHIL ABSOLUTE 0.04 0.00 - 0.70 K/uL 06/19/2020 6:43 AM [facility] [employer] [facility] BASOPHILS ABSOLUTE 0.01 0.00 - 0.20 K/uL 06/19/2020 6:43 AM [facility] [employer] [facility] IMMATURE GRANULOCYTES ABSOLUTE 0.03 0.00 - 0.03 K/uL 06/19/2020 6:43 AM [facility] [employer] [facility] Blood Venipuncture / Unknown 06/19/2020 6:03 AM WORSHIP PASTOR 06/19/2020 6:21 AM WORSHIP PASTOR Terrie Baca MD HEMATOLOGY ORDERAB [id number] [address] * TYPE AND SCREEN (06/19/2020 6:03 AM WORSHIP PASTOR) ABO GROUP O 06/19/2020 7:58 AM [facility] [employer] SERVICES -- [facility] RH (D) TYPE Positive 06/19/2020 7:58 AM [facility] [employer] SERVICES -- [facility] ANTIBODY SCREEN Negative 06/19/2020 7:58 AM WORSHIP PASTOR [facility] SERVICES -- Blood Venipuncture / Unknown 06/19/2020 6:03 AM WORSHIP PASTOR 06/19/2020 6:21 AM WORSHIP PASTOR Terrie Baca MD BLOOD BANK ORDERAB LES [facility]# [id number] [address] [facility] [place] [address] documented in this encounter Visit Diagnoses Not on filedocumented in this encounter Administered Medications Inactive Administered Medications - up to 3 most recent administrations Medication Order MAR Action Action Date Dose Rate Site acetaminophen (TYLENOL) tablet 650 mg 650 mg, Oral, EVERY 6 HOURS, First dose on Mon06/19/20 at 1500, Until Discontinued, Routine, Post-op - Floor Given 06/21/2020 12:23 PM WORSHIP PASTOR 650 mg Given 06/21/2020 6:33 AM WORSHIP PASTOR 650 mg Given 06/21/2020 12:42 AM WORSHIP PASTOR 650 mg carboprost tromethamine (HEMABATE) 250 mcg/mL [...] Post-op - Floor Given 06/21/2020 8:44 AM WORSHIP PASTOR 100 mg Given 06/20/2020 8:30 PM WORSHIP PASTOR 100 mg Given 06/20/2020 8:17 AM WORSHIP PASTOR 100 mg ferrous sulfate tablet 325 mg 325 mg, Oral, DAILY, First dose on Mon06/19/20 at 1200, Until Discontinued, Routine, Post-op - Floor Given 06/21/2020 8:44 AM WORSHIP PASTOR 325 mg Given 06/20/2020 8:18 AM WORSHIP PASTOR 325 mg ibuprofen (MOTRIN) tablet 600 mg 600 mg, Oral, EVERY 6 HOURS, First dose on Mon06/19/20 at 1500, Until Discontinued, Routine, Post-op - Floor Given 06/21/2020 6:33 AM WORSHIP PASTOR 600 mg Given 06/21/2020 12:42 AM WORSHIP PASTOR 600 mg Given 06/20/2020 6:36 PM WORSHIP PASTOR 600 mg lactated ringers infusion IV, at 125 mL/hr, CONTINUOUS, Starting on Mon06/19/20 at 2000, Until 06/21/20 at 1443, Routine, Post-op - Floor New Bag 06/19/2020 7:16 PM WORSHIP PASTOR 125 mL/hr methylergonovine maleate (METHERGINE) 0.2 mg/mL [...] admin instructions), Routine Given 06/21/2020 12:23 PM WORSHIP PASTOR 5 mg Given 06/21/2020 8:44 AM WORSHIP PASTOR 5 mg Given 06/21/2020 4:47 AM WORSHIP PASTOR 5 mg oxyCODONE (ROXICODONE) tablet 5 mg [...] Post-op - Floor Given 06/20/2020 8:30 PM WORSHIP PASTOR 1 Tablet sennosides-docusate sodium (SENNA-S) 8.6-50 mg per tablet 1 Tablet 1 Tablet, Oral, DAILY AT BEDTIME, First dose on Mon06/19/20 at 2100, Until Discontinued, Routine, Post-op - Floor Given 06/20/2020 8:31 PM WORSHIP PASTOR 1 Tab let Given 06/19/2020 9:16 PM WORSHIP PASTOR 1 Tablet sertraline (ZOLOFT) tablet 50 mg 50 mg, Oral, DAILY, First dose on Mon06/19/20 at 2145, Until Discontinued, Routine Given 06/20/2020 9:05 PM WORSHIP PASTOR 50 mg Given 06/19/2020 10:13 PM WORSHIP PASTOR 50 mg simethicone chewable tablet 80 mg 80 mg, Oral, EVERY 6 HOURS PRN, Starting on Mon06/19/20 at 1119, Until 06/21/20 at 1443, Gas, Routine, Post-op - Floor Given 06/20/2020 1:37 AM WORSHIP PASTOR 80 mg Given 06/19/2020 6:05 PM WORSHIP PASTOR 80 mg tranexamic acid (CYKLOKAPRON) 1,000 mg in sodium chloride (iso-osmotic) 100 mL IVPB 1,000 mg, IV, ONE TIME PRN, 1 dose, Starting on Mon06/19/20 at 0536, Until 06/21/20 at 1443, Other (See Comment), Physician consultation required before administration for appropriate medication selection, Routine documented in this encounter Active and Recently Administered Medications Times are shown in WORSHIP PASTOR. Scheduled Medication Order 06/19/2020 06/20/2020 06/21/2020 acetaminophen [...] ATTILA) 0041 (Given - Provider: Odalis Araiza, ATTILA)0447 (Given - Provider: Odalis Araiza, RN)0844 [...]
--- OUTSIDE RECORDS SUMMARY | 2024-05-27 15:52 | XMS_ITS | Encounter Summary ---
Author Organization [facility] Address [address] [facility] Attn: [place] [address] Care Team Providers Care Data Conversion Operator Name Role Phone Unavailable Primary Care [...] COVID-19? No / Unsure 06/10/2020 10:27 AM PATTERN PERFORATING MACHINE OPERATOR documented as of this encounter Plan of Treatment Upcoming Encounters Date Type Department Care Team (Late st Contact Info) Description 10/08/2024 9:45 AM CDT Office Visit [facility] STAIN REMOVER - [facility] [address] [address] [address] Terrie Manning MD [address] [facility] [address] [place] [address] documented as of this encounter Visit Diagnoses Not on filedocumented in this encounter
--- OUTSIDE RECORDS SUMMARY | 2024-05-27 15:52 | XMS_ITS | Encounter Summary ---
Author Organization [facility] Address [address] [place] [address] Care Team Providers Care Silica Dry Press Helper Name Role Phone Terrie Baca MD Primary Care Provider +1- [phone] Reason for Visit * Auth/Cert Specialty Diagnoses / Procedures Referred By Contac t Referred To Contact Obstetrics and Gynecology Diagnoses EDC 04/27 Hx of classical Trisomy 18 Procedures SECTION [address] [address] Referral ID Status Reason Start Date Expiration Date Visits Re quested Visits Authorized [id number] 1 1 Encounter Details Date Type Department Care Team (Latest Contact Info) Description 04/01/2019 5:46 AM CDT - 04/03/2019 1:08 PM CDT Hospital Encounter [address] [address] Terrie Baca MD [address] [place] [address] Discharge Disposition: Home or Self [...] date: Attending Physician0 : Terrie Baca MD Candia Data: Information for the patient's : Blanca Alarcon [[id number]] Information for the patient's : Blanca Alarcon [[id number]] tab Discharge Diagnosis 1. non-labor Hospital Procedures 1. none. Pertinent History & Physical See H&P. Hospital Course Uncomplicated. Discharge Labs HEMOGLOBIN Date Value Ref Range Status 04/01/2019 12.1 11.8 - 14.8 g/dL Final PLATELETS Date Value Ref Range Status 04/01/2019 255 140 - 350 K/uL Final Discharge Condition:[id number] stable. Disposition She is discharged to home. [...] Refills: 0 STOP taking these medications Vit 53-Ueua-SF-DSS 90-1-50 mg Tablet Commonly known as: ADVANCED [...] BEDTIME NEEDED FOR SLEEP 0 12/31/2018 04/11/2019 SUMAtriptan (IMITREX) 100 mg tablet 1 03/26/2019 07/22/2019 documented as of this encounter Progress Notes * Lena Stoddard, ATTILA - 04/03/2019 11:00 AM CDT Spoke with Angela and Alvin about the [employer] [facility] program and provided them with the bereavement literature and Heartprints packet. They were appreciative. I also gave Angela the gift card for the nabor yeboah necklace. They are spending time with Flaco and planning on discharging around noon. We discussed the home information and I told them that I spoke with Silverio Garcia, the mud jack nozzle worker of [facility]. He stated that there would not be a fee for any servicesprovided and that the family should contact him when they are ready to finalize their plans. They were very thankful for the assistance. They have completed the paperwork for Flaco and I instructed them to call me when they are ready to be discharged. Lena Stoddard RN [facility] Heartprints * Lena Stoddard, ATTILA - 04/03/2019 9:30 AM CDT Met with Angela and Alvin at 0930. Angela was holding baby Flaco. Grieving appropriately. Erica getting footprints for mementos. Alvin had some questions regarding arrangements and I told him I would call for them today. They wanted to use [facility]. They are opting for cremation. I told them I will come back with information for the home and some bereavement literature. * Pina Montemayor, ATTILA - 04/03/2019 12:12 AM CDT Received call from NICU nurse. Baby Flaco did pass. Family in room with pt. [place] called to room for emotional support. Heartprints [...] Doing well postoperatively.. Plan: [facility] * Lena Stoddard RN - [...] pt's room to introduce myself and the [employer] [facility] program. I told Angela and her [...] time and location Arrive by 0545 to [facility]. [] Oral intake instructions [...] if any questions. Opportunity provided for questions. Demonstrator Sewing Techniques required: AMPARO Glover RN * Beth Pike [...] voicemail and call back number for questions Demonstrator Sewing Techniques required: N/A Beth Pike RN * Hortencia Rodriguez RN - 03/21/2019 1:08 PM CDT Images from the original note were not included. [facility] CARE TEAM [address] [facility] [place] [address] CARE TEAM CONSULT NOTE To view Reports/Consultation notes please visit the below tabs in Chart Review: Ultrasound Reports-???Images?? tab MFM Consultation (if applicable)- Media tab Pediatric Specialty Consultation- Notes tab PRIMARY FCT COORDINATOR: Hortencia Rodriguez RN PATIENT DEMOGRAPHICS: PATIENT NAME: Angela Whyte Ivana DATE OF : 1985 PATIENT Estimated Date of Delivery: 04/27/19 /PARA : GAS CONTROLLER: Dr. Baca DIAGNOSIS: Trisomy 18 per amniocentesis. [...] 03/21/19 in the Meditation Room of the [facility] for a scheduled NICU consult with Dr. [...] Angela Alarcon. Hortencia Rodriguez RN, BSN Care Food Sanitarian [phone] * Hortencia Rodriguez RN - 02/26/2019 2:19 PM CDT Images from the original note were not included. [facility] CARE TEAM [address] [place] [address] CARE TEAM CONSULT NOTE To view Reports/Consultation notes please visit the below tabs in Chart Review: Ultrasound Reports-???Images?? tab MFM Consultation (if applicable)- Media tab Pediatric Specialty Consultation- Notes tab PRIMARY FCT COORDINATOR: Hortencia Rodriguez RN PATIENT DEMOGRAPHICS: PATIENT NAME: Angela Alarcon DATE OF : 1985 PATIENT Estimated Date of Delivery: 04/27/19 /PARA : GAS CONTROLLER: Dr. Baca DIAGNOSIS: Trisomy 18 with multiple [...] was updated by Hortencia Rodriguez RN by [employer] inbox note Angela Isabell Katiejaron was reminded to call Dr. Baca's office with any medical issues or concerns. Angela Isabell Ivana states understanding of information provided today. FCT contact information was reviewed. The Care Team will continue to follow and support Angelaara Alarcon. Hortencia Rodriguez RN, BSN Care Food Sanitarian [phone] * Hortencia Rodriguez RN - 12/27/2018 2:03 PM CDT Images from the original note were not included. [facility] CARE TEAM [address] [place] [address] CARE TEAM ENROLLMENT CONSULT NOTE To view Reports/Consultation notes please visit the below tabs in Chart Review: Ultrasound Reports-???Images?? tab MFM Consultation (if applicable)- Media tab Pediatric Specialty Consultation- Notes tab PRIMARY FCT COORDINATOR: Hortencia Rodriguez RN PATIENT DEMOGRAPHICS: PATIENT NAME: Angela Alarcon DATE OF : 1985 PATIENT ESTIMATED DUE DATE: 04/27/19 /PARA: GAS CONTROLLER: Dr. 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 T incision on uterus DELIVERY PLAN: At [facility] with Dr. Baca ENROLLMENT NOTE: A referral to the Care Team is made by [facility]. I met with Angela Isabell Ivana for an initial consult in the [facility] on 12/26/18, following a scheduled [...] Care Appointment: Co-mangangement of this patient by [facility] and Dr. Baca Surveillance: Last [...] Alarcon. Hortencia Rodriguez RN, BSN, RNC-OB Care Food Sanitarian [phone] documented in this encounter H&P Notes * [...] SECTION performed by Terrie Baca MD at [facility] L&D ??? [place] COLONOSCOPY FLX DX W/COLLJ SPEC WHEN PFRMD 06/06/2013 COLONOSCOPY performed by Xavi Aquino MD at [facility] ??? MN ESOPHAGOGASTRODUODENOSCOPY TRANSORAL DIAGNOSTIC 06/06/2013 ESOPHAGOGASTRODUODENOSCOPY performed by Xavi Aquino MD at [facility] ??? [place] HYSTEROSCOPY,W/ENDO BX N/A 08/11/2016 HYSTEROSCOPY WITH DILATATION AND CURETTAGE SUCTION performed by Dustin Bill MD at [facility] ??? [place] ORAL SURGERY RIGHT OF WAY SUPERVISOR Hx: +H/o abnormal pap smears S/P LEEP [...] FHR: 120, mod variability, +accels, no decels [place]: q2-3min Assessment/Plan: 33 y.o. @ 36w2d admitted [...] with Dr. Baca. Irlanda Ames DO PGY3 AUTOMATIC CAR WASH ATTENDANT Resident Pager#: [phone] documented in this encounter Consult Notes * [...] cared for by Dr. Melo Rey in [place], [place]. I spent 19 minutes in face [...] hours: the patient will be transferred to [facility] and Flaco will be admitted to the [...] Post-operative Diagnosis: same Surgeon: Terrie Baca MD Welding Machine Operator Gas: Brenda Armstrong MD Anesthesia: CSE EBL: 330 [...] Delayed Cord Clamping: (Refer to Delivery Summary) Candia Weight: Refer to Delivery Summary. 1 Minute: [...] at the time of this encounter. Their insulation worker furnace installer has been involved with them since Flaco's . I offered poems and prayers that they could use as options forFlaco's and burial. They were accepting of these. Laura Young [facility] phone [phone] * Care Plan - Millie Vargas RN [...] were not included. [facility] Vaginal Protocol [facility] Approved by: [facility] - Medical Executive Committee Approval Date: 01/17/2019 [...] CBC with differential [facility] Pre-Operative Protocol [facility] Approved by: [facility] - Medical Executive Committee Approval Date: 01/17/2019 ORDERS ARE ENTERED ???PER PROTOCOL?? Follow this protocol for all section patients (scheduled and unscheduled). Enter the protocol in the patient's electronic health record using [employer] Improved Affordable Healthcarephrase: .cesareanbirthprotocol Nursing Orders: o Initiate the Pathway [...] consultation. Adult Influenza and/or Pneumococcal Vaccine Protocol [facility] ORDERS ARE ENTERED ???PER PROTOCOL?? Enter the protocol in the patient???s electronic health record using [employer] Improved Affordable Healthcarephrase: .flupneumoniavaccineprotocol Nursing Orders: ??? Screening is performed [...] CDT Office Visit [facility] AUTOMATIC CAR WASH ATTENDANT - Medical [facility] [address] [address] Terrie Baca MD [address] [facility] [address] [address] documented as of this encounter [...] - 9.8 K/uL 04/01/2019 6:27 AM CDT [employer] [facility]ORAT[facility] - [facility] RBC 3.99 3.90 - 4.90 M/uL 04/01/2019 6:27 AM CDT [employer] [facility] - [facility] HEMOGLOBIN 12.1 11.8 - 14.8 g/dL 04/01/2019 6:27 AM CDT [employer] [facility] - [facility] HEMATOCRIT 37.2 35.5 - 44.0 % 04/01/2019 6:27 AM CDT [employer] [facility] - [facility] MCV 93.2 82.0 - 99.0 fL 04/01/2019 6:27 AM CDT [employer] [facility] - [facility] MCH 30.3 27.2 - 32.6 pg 04/01/2019 6:27 AM CDT [employer] [facility] - [facility] MCHC 32.5 31.5 - 35.5 g/dL 04/01/2019 6:27 AM CDT [employer] [facility] - [facility] RDW 13.2 11.5 - 14.5 % 04/01/2019 6:27 AM CDT [employer] [facility] - [facility] RDW-STDEV 44.5 37.1 - 48.7 fL 04/01/2019 6:27 AM CDT [employer] [facility] - [facility] PLATELETS 255 140 - 350 K/uL 04/01/2019 6:27 AM CDT [employer] [facility] - [facility] MPV 9.7 9.3 - 12.4 fL 04/01/2019 6:27 AM CDT [employer] [facility] - [facility] NEUTROPHILS 74 % 04/01/2019 6:27 AM CDT [facility] - [facility] LYMPHOCYTES 15 % 04/01/2019 6:27 AM CDT [facility] MONOCYTES 11 % 04/01/2019 6:27 AM CDT [facility] LABORATORY SERVICES [facility] EOSINOPHILS 0 % 04/01/2019 6:27 AM CDT [facility] LABORATORY SERVICES - [facility] BASOPHILS 0 % 04/01/2019 6:27 AM CDT [facility] IMMATURE GRANULOCYTES 0 % 04/01/2019 6:27 AM CDT [facility] - [facility] NEUTROPHIL ABSOLUTE 6.56 1.90 - 7.00 K/uL 04/01/2019 6:27 AM CDT [facility] LYMPHOCYTE ABSOLUTE 1.29 0.70 - 4.50 K/uL 04/01/2019 6:27 AM CDT [facility] - [facility] MONOCYTE ABSOLUTE 0.97 0.10 - 1.30 K/uL 04/01/2019 6:27 AM CDT [facility] - [facility] EOSINOPHIL ABSOLUTE 0.04 0.00 - 0.70 K/uL 04/01/2019 6:27 AM CDT [facility] BASOPHILS ABSOLUTE 0.03 0.00 - 0.20 K/uL 04/01/2019 6:27 AM CDT [facility] - [facility] IMMATURE GRANULOCYTES ABSOLUTE 0.03 0.00 - 0.03 K/uL 04/01/2019 6:27 AM CDT [facility] Blood Venipuncture / Unknown 04/01/2019 6:09 AM CDT 04/01/2019 6:21 AM CDT Terrie Baca MD HEMATOLOGY ORDERAB LES [facility] [employer] SERVICES - [facility]# [id number] [address] [facility] [place] [address] * TYPE AND SCREEN (04/01/2019 6:09 AM CDT) ABO GROUP O 04/01/2019 6:09 AM CDT [facility] SERVICES -- [facility] RH (D) TYPE Positive 04/01/2019 6:09 AM CDT [facility] -- [facility] ANTIBODY SCREEN Negative 04/01/2019 6:09 AM CDT [facility] LABORATORY SERVICES -- [facility] Blood Venipuncture / Unknown 04/01/2019 6:09 AM CDT 04/01/2019 6:21 AM CDT Terrie Baca MD BLOOD BANK ORDERAB LES [facility] CL[facility]# [id number] [address] [place] [address] documented in this encounter Visit Diagnoses Diagnosis [...] Montemayor, ATTILA)0855 (Given - Provider: Millie Vargas, ATTIAL)1440 (Given - Provider: Millie Vargas, ATTILA)2004 (Given [...] RN) documented in this encounter Care Teams Silica Dry Press Helper Relationship Specialty Start Date End Date Terrie Baca MD PCP - General Obstetrics and Gynecology 05/27/13 documented as of this encounter
--- OUTSIDE RECORDS SUMMARY | 2024-05-27 15:52 | XMS_ITS | Encounter Summary ---
Author Organization [facility] Address [address] [place] [address] Care Team Providers Care Clinical Training Specialist Name Role Phone Terrie Manning MD Primary Care Provider +1- [phone] Reason for Visit * Reason Comments Medication Refill Encounter Details Date Type Department Care Team (Late Contact Info) Description 10/25/2019 Refill [facility] SUPERVISOR STAVE CUTTING [address] [address] Terrie Manning MD [address] [address] Social History Tobacco Use Types [...] 9:45 AM CDT Office Visit [facility] SUPERVISOR STAVE CUTTING - [address] [place] [address] Terrie Manning MD [address] [facility] [address] [address] documented as of this encounter Visit Diagnoses Not on filedocumented in this encounter Care Teams Clinical Training Specialist Relationship Specialty Start Date End Date Terrie Manning MD PCP - General Obstetrics and Gynecology 05/27/13 documented as of this encounter
--- OUTSIDE RECORDS SUMMARY | 2024-05-27 15:52 | XMS_ITS | Encounter Summary ---
Author Organization [facility] Address [address] [place] [address] Care Team Providers Care Mobile Web Application Developer Name Role Phone Terrie Manning MD Primary Care Provider +1- [phone] Reason for Visit * Reason Comments Test Encounter Details Date Type Department Care Team (Late st Contact Info) Description 11/13/2019 11:00 AM CDT Office Visit [facility] UTILITY TELLER - Medical [address] [address] Terrie Manning MD [address] [place] [address] Encounter for confirmation of test result [...] 2015 ??? HX WISDOM TEETH EXTRACTION ??? NE DELIVERY ONLY N/A 08/21/2017 SECTION performed by Terrie Manning MD at [facility] L&D ??? NE DELIVERY ONLY N/A 04/01/2019 SECTION performed by Terrie Manning MD at [facility] L&D ??? NE COLONOSCOPY FLX DX W/COLLJ SPEC WHEN PFRMD 06/06/2013 COLONOSCOPY performed by Xavi Aquino MD at [facility] ??? NE ESOPHAGOGASTRODUODENOSCOPY TRANSORAL DIAGNOSTIC 06/06/2013 ESOPHAGOGASTRODUODENOSCOPY performed by Xavi Aquino MD at [facility] ??? NE HYSTEROSCOPY,W/ENDO BX N/A 08/11/2016 HYSTEROSCOPY WITH DILATATION AND CURETTAGE SUCTION performed by Dustin Bill MD at [facility] ??? NE ORAL SURGERY Current Outpatient Medications on File [...] pain. Neurological: Negative for dizziness or weakness. DYNAMOMETER TESTER: normal menses, no abnormal bleeding, pelvic pain [...] AM CDT Office Visit [facility] UTILITY TELLER - [address] [address] Terrie Manning MD [facility] [address] [address] documented as of this encounter Procedures Procedure Name Priority Date/Time Associated Diagnosis Comments CERV/VAG CYTO AGE BASED SCREEN PAP Routine 11/13/2019 11:31 AM CDT Screening for cervical cancer documented in this encounter Results * PROGESTERONE (11/13/2019 11:33 AM CDT) PROGESTERONE 14.10 ng/mL 11/13/2019 12:[address] [facility] Blood Venipuncture / Unknown 11/13/2019 11:33 AM CDT 11/13/2019 11:41 AM CDT Narrative [facility] - 11/13/2019 12:36 PM CDT Reference Ranges: Healthy women Follicular phase 0.06 - 0.90 ng/mL Ovulation phase ??0.12 - 12.0 ng/mL Luteal phase ? 1.83 - 23.9 ng/mL Postmenopause ?? <0.50 ng/mL Healthy women 1st trimester 11.0 - 44.3 ng/mL 2nd trimester 25.4 - 83.3 ng/mL 3rd trimester 58.7 - 214 ng/mL Terrie Manning MD CHEMISTRY ORDERABL ES [facility]# [id number] [address] [place] [address] * (ABNORMAL) HCG QUANTITATIVE, BLOOD (11/13/2019 11:33 AM CDT) HCG QUANT, BLOOD 6,383.0(H) <5.0 mIU/mL 11/13/2019 12:40 PM CDT [facility] Blood Venipuncture / Unknown 11/13/2019 11:33 AM CDT 11/13/2019 11:41 AM CDT [facility] - 11/13/2019 12:40 PM CDT Result of [...] MD CHEMISTRY ORDERABL ES Performing Organization Address City/State/[facility] Co de Phone Number [facility]# [id number] [address] [place] [address] * (ABNORMAL) CERV/VAG CYTO AGE BASED SCREEN PAP (11/13/2019 11:31 AM CDT) COMMENT (PAP): SEE COMMENT 0 12:58 PM CDT [facility] Comment: This order for age-based cervical cancer and STI screening follows ACOG guidelines(PB 168, 140, CIY001). See individual assays for performing site location. [...] clinical correlation and follow-up as clinically appropriate QUALITATIVE FIELD PROJECT MANAGER: SEE COMMENT 2019 12:58 PM CDT [facility] Comment: MMW, CT(ASCP) CT screening location: [place] [address] [place] [address] PATHOLOGIST SEE COMMENT 11/19/2019 12:58 PM CDT [...] of this assay have been determined by [employer]. The modifications have not been cleared or approved by the FDA. This assay has been validated pursuant to the CLIA regulations and is used for clinical purposes. Genital SWAB OF ENDOCERVIX / Unknown Collection / Unknown 11/13/2019 11:31 AM CDT 11/13/2019 7:26 PM CDT Narrative [facility] - 11/19/2019 12:58 PM CDT Performing Organization Information: ?Site ID: [place] ?Name: [facility] ?Address: [address] [place] [address] [place] [address] ?Director: Vitaly Hardy D.O., MPH ?Site ID: ?Name: [facility] ?Address: [facility] [place] [address] ?Director: Sarah Jay Terrie Manning MD PATHOLOGY/CYTOLOGY ORDERABLES [facility] [phone] documented in this encounter Visit Diagnoses Diagnosis Encounter for confirmation of test result with physical examination- Primary examination or test, unconfirmed Screening for cervical cancer Screening for malignant neoplasm of the cervix documented in this encounter Care Teams Mobile Web Application Developer Relationship Specialty Start Date End Date Terrie Manning MD PCP - General Obstetrics and Gynecology 05/27/13 documented as of this encounter
--- OUTSIDE RECORDS SUMMARY | 2024-05-27 15:52 | XMS_ITS | Encounter Summary ---
Author Organization Address [facility] Attn: [place] [address] Care Team Providers Care Vp Of Customer Experience Strategy Name Role Phone Terrie Manning MD Primary Care Provider +1- [phone] Encounter Details Date Type Department Care Team [...] AM CDT Office Visit [facility] BENEFITS CONSULTANT - Medical [facility] [address] [address] [address] Terrie Manning MD [address] [facility] [address] [address] documented as of this encounter Visit Diagnoses Not on filedocumented in this encounter Care Teams Vp Of Customer Experience Strategy Relationship Specialty Start Date End Date Terrie Manning MD PCP - General Obstetrics and Gynecology 05/27/13 documented as of this encounter
--- OUTSIDE RECORDS SUMMARY | 2024-05-27 15:52 | XMS_ITS | Encounter Summary ---
Author Organization [employer] Address [address] [place] [address] Care Team Providers Care Shirt Ironer Supervisor Name Role Phone Unavailable Primary Care Provider Unavailabl e Encounter Details Date Type Department Care Team (Latest Contact Info) Description 06/10/2020 10:30 AM OPTICAL DISPENSER Ancillary Procedure [facility] WHITE SUGAR BOILER Medical [address] [facility] [address] [place] [address] Encounter for ultrasound to check [...] COVID-19? No / Unsure 06/10/2020 10:27 AM OPTICAL DISPENSER documented as of this encounter Plan of Treatment Upcoming Encounters Date Type Department Care Team (Late st Contact Info) Description 10/08/2024 9:45 AM CDT Office Visit [facility] WHITE SUGAR BOILER - Medical [address] [facility] [address] [place] [address] Terrie Baca MD [address] [facility] [address] [address] documented as of this encounter Procedures Procedure Name Priority Date/Time Associated Diagnosis Comments US OB FOLLOW UP PER FETUS Routine 06/10/2020 10:47 AM OPTICAL DISPENSER Encounter for ultrasound to check growth 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 , currently documented in this encounter Results * US OB FOLLOW UP PER FETUS (06/10/2020 10:47 AM OPTICAL DISPENSER) Anatomical Region Laterality Modality Pelvis Ultrasound Study GA Study Date Study LEXIE Working LEXIE (Source) Feta l Weight (Method) 06/13/2020 07/15/2020 (Las t Menstrual Period) Result Name Value Comments BPD (Hadlock) cm HC (Hadlock) cm AC (Hadlock) cm FL (Hadlock) cm Humerus Length cm Cerebellum cm Nuchal Fold mm HC/AC Impressions 06/13/2020 10:00 PM OPTICAL DISPENSER INDICATION: Prior fetus with Trisomy 18; Prior [...]
--- OUTSIDE RECORDS SUMMARY | 2024-05-27 15:52 | XMS_ITS | Encounter Summary ---
Author Organization [facility] Address [address] [place] [address] Care Team Providers Care Outside Energy Sales Representatives Name Role Phone Unavailable Primary Care Provider Unavailabl e Reason for Visit * Reason Comments Routine Visit Encounter Details Date Type Department Care Team (Late st Contact Info) Description 06/10/2020 11:30 AM SKI PATROL OFFICER visit [facility] DIGITAL COLOR PRESS OPERATOR - Medical [address] [address] Terrie Baca MD [address] [place] [address] Trisomy 18 in child of [...] COVID-19? No / Unsure 06/10/2020 10:27 AM SKI PATROL OFFICER documented as of this encounter Last Filed Vital Signs Vital Sign Reading Time Taken Comments Blood Pressure 136/74 06/10/2020 10:55 AM SKI PATROL OFFICER Pulse - - Temperature - - Respiratory Rate - - Oxygen Saturation - - Inhaled Oxygen Concentration - - Weight 88.2 kg (194 lb 6.4 oz) 06/10/2020 10:55 AM SKI PATROL OFFICER Height - - Body Mass Index 27.89 [...] call/come with further questions/concerns. Terrie Baca MD PATROL OFFICER documented in this encounter Plan of Treatment Upcoming Encounters Date Type Department Care Team (Late st Contact Info) Description 10/08/2024 9:45 AM CDT Office Visit [facility] DIGITAL COLOR PRESS OPERATOR - Medical [facility] [address] [address] Terrie Baca MD [address] [facility] [address] [place] [address] documented as of this encounter Visit Diagnoses Diagnosis 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 , currently , third trimester- Primary Anxiety state Anxiety state, unspecified History of low vertical section 35 weeks gestation of state, incidental documented in this encounter
--- OUTSIDE RECORDS SUMMARY | 2024-05-27 15:52 | XMS_ITS | Encounter Summary ---
Author Organization [facility] Address 5 [facility] Attn: [place] [address] Care Team Providers Care Patient Care Assistant Name Role Phone Terrie Manning MD Primary Care Provider +1- [phone] Encounter Details Date Type Department Care Team [...] Office Visit [facility] SIGN LETTERER - Medical [facility] [address] [place] [phone] Terrie Manning MD [address] [facility] [address] [address] documented as of this encounter Visit Diagnoses Not on filedocumented in this encounter Care Teams Patient Care Assistant Relationship Specialty Start Date End Date Terrie Manning MD PCP - General Obstetrics and Gynecology 05/27/13 documented as of this encounter
--- OUTSIDE RECORDS SUMMARY | 2024-05-27 15:52 | XMS_ITS | Encounter Summary ---
Author Organization [facility] Address 5 [facility] Attn: [place] [address] Care Team Providers Care Petroleum Terminal Plant Operator Name Role Phone Terrie Manning MD Primary Care Provider +1- [phone] Encounter Details Date Type Department Care Team [...] CDT Office Visit [facility] SPECIAL EDUCATION BUS DRIVER - Medical [place] [address] [phone] Terrie Manning MD [address] [address] documented as of this encounter Visit Diagnoses Not on filedocumented in this encounter Care Teams Petroleum Terminal Plant Operator Relationship Specialty Start Date End Date Terrie Manning MD PCP - General Obstetrics and Gynecology 05/27/13 documented as of this encounter
--- OUTSIDE RECORDS SUMMARY | 2024-05-27 15:52 | XMS_ITS | Encounter Summary ---
Author Organization [facility] Address [address] [place] [address] Care Team Providers Care Warehouse Checker Name Role Phone Terrie Baca MD Primary Care Provider +1- [phone] Reason for Visit * Reason Comments Urinary Pain Encounter Details Date Type Department Care Team (Late st Contact Info) Description 09/20/2019 10:00 AM CDT Video Visit [facility] SURVEY WORKERS SUPERVISOR - Medical [facility] [address] [address] [address] Jackelyn Maciel, CARDIOTHORACIC ANESTHESIA TECHNICIAN [address] [facility] [address] [address] Acute cystitis with hematuria (Primary [...] and deductible may apply - yes PATIENT: Anegla Alarcon : 1985 (33 y.o.) DATE: 09/20/2019 [...] FOLLOW UP Data Unavailable Jackelyn Maciel NP [facility] SURVEY WORKERS SUPERVISOR [address] [phone] documented in this encounter Plan of Treatment Upcoming Encounters Date Type Department Care Team (Late st Contact Info) Description 10/08/2024 9:45 AM CDT Office Visit [facility] SURVEY WORKERS SUPERVISOR [address] [phone] Terrie Baca MD [address] [place] [phone] documented as of this encounter Visit Diagnoses Diagnosis Acute cystitis with hematuria- Primary Acute cystitis documented in this encounter Care Teams Warehouse Checker Relationship Specialty Start Date End Date Terrie Baca MD PCP - General Obstetrics and Gynecology 05/27/13 documented as of this encounter
--- OUTSIDE RECORDS SUMMARY | 2024-05-27 15:52 | XMS_ITS | Encounter Summary ---
Author Organization [facility] Address [address] [place] [address] Care Team Providers Care Sizing Machine Tender Name Role Phone Terrie Manning MD Primary Care Provider +1- [phone] Reason for Visit * Reason Onset Date Comments 1 month follow up for loss 05/06/2019 Encounter Details Date Type Department Care Team (Late st Contact Info) Description 05/06/2019 Telephone [address] [place] [address] Lena Stoddard, RN 1 month [...] future. She appreciated the follow up call. GER STAR documented in this encounter Plan of Treatment Upcoming Encounters Date Type Department Care Team (Late st Contact Info) Description 10/08/2024 9:45 AM CDT Office Visit [facility] TOOLS AND PARTS ATTENDANT - [facility] [address] [place] [address] Terrie Manning MD [address] [place] [address] documented as of this encounter Visit Diagnoses Not on filedocumented in this encounter Care Teams Sizing Machine Tender Relationship Specialty Start Date End Date Terrie Manning MD PCP - General Obstetrics and Gynecology 05/27/13 documented as of this encounter
--- OUTSIDE RECORDS SUMMARY | 2024-05-27 15:52 | XMS_ITS | Encounter Summary ---
Author Organization [facility] Address [address] [place] [address] Care Team Providers Care Center Medical Director Name Role Phone Terrie Manning MD Primary Care Provider +1- [phone] Reason for Visit * Reason Onset Date Comments bereavement, 1 year anniversary 04/03/2020 Encounter Details Date Type Department Care Team (Late st Contact Info) Description 04/03/[address] [facility] Labor & [address] [place] [address] Odalis Schneider RN bereavement, 1 [...] more in the future. [facility] [phone] documented in this encounter Plan of Treatment Upcoming Encounters Date Type Department Care Team (Late st Contact Info) Description 10/08/2024 9:45 AM CDT Office Visit [facility] ELECTRONICS ASSEMBLER AND TESTER - [address] [address] Terrie Manning MD [facility] [address] [place] [address] documented as of this encounter Visit Diagnoses Not on filedocumented in this encounter Care Teams Center Medical Director Relationship Specialty Start Date End Date Terrie Manning MD PCP - General Obstetrics and Gynecology 05/27/13 documented as of this encounter
--- OUTSIDE RECORDS SUMMARY | 2024-05-27 15:52 | XMS_ITS | Encounter Summary ---
Author Organization [facility] Address 5 [facility] Attn: [place] [address] Care Team Providers Care Loin Trimmer Name Role Phone Terrie Manning MD Primary Care Provider +1- [phone] Encounter Details Date Type Department Care Team [...] [facility] MARINA MANAGER - Medical [facility] [address] [place] [phone] Terrie Manning MD [address] [facility] [address] [address] documented as of this encounter Visit Diagnoses Not on filedocumented in this encounter Care Teams Loin Trimmer Relationship Specialty Start Date End Date Terrie Manning MD PCP - General Obstetrics and Gynecology 05/27/13 documented as of this encounter
--- OUTSIDE RECORDS SUMMARY | 2024-05-27 15:52 | XMS_ITS | Encounter Summary ---
Author Organization [facility] Address [address] [place] [address] Care Team Providers Care Operating Room Registered Nurse Name Role Phone Terrie Baca MD Primary Care Provider +1- [phone] Reason for Visit * Auth/Cert Specialty Diagnoses / Procedures Referred By Contac t Referred To Contact Obstetrics and Gynecology Diagnoses EDC 04/27 Hx of classical Trisomy 18 Procedures SECTION [facility] [address] [place] [address] Referral ID Status Reason Start Date Expiration Date Visits Re quested Visits Authorized [id number] 1 1 Encounter Details Date Type Department Care Team (Late st Contact Info) Description 04/01/2019 7:45 AM CDT - 04/01/2019 9:[address] [facility] Labor & [address] [place] [address] Terrie Baca MD [address] [facility] [address] [address] SECTION Surgery Details Date/Time Status [...] Data: Information for the patient's : Brennensekoujaron [id number] [[id number]] Information for the patient's : [id number] [[id number]] tab Discharge Diagnosis 1. non-labor Hospital Procedures 1. none. Pertinent History & Physical See H&P. Hospital Course Uncomplicated. Discharge Labs HEMOGLOBIN Date Value Ref Range Status 04/01/2019 12.1 11.8 - 14.8 g/dL Final PLATELETS Date Value Ref Range Status 04/01/2019 255 140 - 350 K/uL Final Discharge Condition:[id number] stable. Disposition She is discharged to home. [...] Refills: 0 STOP taking these medications Vit 28-Umqz-PD-DSS 90-1-50 mg Tablet Commonly known as: ADVANCED [...] Spoke with Angela and Alvin about the [facility]prints program and provided them with the bereavement literature and Heartprints packet. They were appreciative. I also gave Angela the gift card for [facility]. They are spending time with Flaco and planning on discharging around noon. We discussed the home information and I told them that I spoke with Silverio Garcia, the sport psychologist of [facility]. He stated that there would [...] for them today. They wanted to use [facility]. They are opting for cremation. I [...] pt's room to introduce myself and the [facility] program. I told Angela and her [...] They were very appreciative. Lena Stoddard RN [facility] * Flora Glover RN - 03/29/2019 12:37 PM CDT Pre-Operative Patient Education: Today's Date: 03/29/2019 Patient: Angela Alarcon is a 33 y.o. female : 1985 Confirms understanding of the following patient education: [] Date and time of scheduled procedure 04/01 @ 0745 [] Personal belongings policy-leave all jewelry at home [] Arrival time and location Arrive by 0545 to [facility]. [] Oral intake instructions per OB Anesthesia [...] if any questions. Opportunity provided for questions. Video Library Assistant required: NO Flora Glover RN * Beth [...] voicemail and call back number for questions Video Library Assistant required: N/A Beth Pike RN * Hortencia Rodriguez RN - 03/21/2019 1:08 PM CDT Images from the original note were not included. [facility] CARE TEAM [address] [place] [address] CARE TEAM CONSULT NOTE To view Reports/Consultation notes please visit the below tabs in Chart Review: Ultrasound Reports-???Images?? tab MFM Consultation (if applicable)- Media tab Pediatric Specialty Consultation- Notes tab PRIMARY FCT COORDINATOR: Hortencia Rodriguez RN PATIENT DEMOGRAPHICS: PATIENT NAME: Angela Alarcon DATE OF : 1985 PATIENT Estimated Date of Delivery: 04/27/19 /PARA : SURGICAL PRODUCT SALES CONSULTANT: Dr. Baca DIAGNOSIS: Trisomy 18 per amniocentesis. [...] 03/21/19 in the Meditation Room of the [facility] for a scheduled NICU consult with Dr. [...] Angela Alarcon. Hortencia Rodriguez RN, BSN Care Heel Seat Trimmer [phone] * Hortencia Rodriguez RN - 02/26/2019 2:19 PM CDT Images from the original note were not included. [facility] CARE TEAM [address] [place] [address] CARE TEAM CONSULT NOTE To view Reports/Consultation notes please visit the below tabs in Chart Review: Ultrasound Reports-???Images?? tab MFM Consultation (if applicable)- Media tab Pediatric Specialty Consultation- Notes tab PRIMARY FCT COORDINATOR: Hortencia Rodriguez RN PATIENT DEMOGRAPHICS: PATIENT NAME: Angela Alarcon DATE OF : 1985 PATIENT Estimated Date of Delivery: 04/27/19 /PARA : SURGICAL PRODUCT SALES CONSULTANT: Dr. Baca DIAGNOSIS: Trisomy 18 with multiple [...] was updated by Hortencia Rodriguez RN by [employer] inbox note Angela Alarcon was reminded to call Dr. Baca's office with any medical issues or concerns. Angela Alarcon states understanding of information provided today. FCT contact information was reviewed. The Care Team will continue to follow and support Angela Alarcon. Hortencia Rodriguez RN, BSN Care Heel Seat Trimmer [phone] * Hortencia Rodriguez RN - 12/27/2018 2:03 PM CDT Images from the original note were not included. [facility] CARE TEAM [address] [place] [address] CARE TEAM ENROLLMENT CONSULT NOTE To view Reports/Consultation notes please visit the below tabs in Chart Review: Ultrasound Reports-???Images?? tab MFM Consultation (if applicable)- Media tab Pediatric Specialty Consultation- Notes tab PRIMARY FCT COORDINATOR: Hortencia Rodriguez RN PATIENT DEMOGRAPHICS: PATIENT NAME: Angela Alarcon DATE OF : 1985 PATIENT ESTIMATED DUE DATE: 04/27/19 /PARA: SURGICAL PRODUCT SALES CONSULTANT: Dr. 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 T incision on uterus DELIVERY PLAN: At [facility] with Dr. Baca ENROLLMENT NOTE: A referral to the Care Team is made by [facility]. I met with Angela Alarcon for an initial consult in the [facility] on 12/26/18, following a scheduled [...] Care Appointment: Co-mangangement of this patient by [facility] and Dr. Baca Surveillance: Last [...] Alarcon. Hortencia Rodriguez RN, BSN, RNC-OB Care Heel Seat Trimmer [phone] documented in this encounter H&P Notes * Irlanda Ames DO - 04/01/2019 6:21 AM CDT OB [...] 2015 ??? HX WISDOM TEETH EXTRACTION ??? PA DELIVERY ONLY N/A 08/21/2017 SECTION performed by Terrie Baca MD at [facility] L&D ??? PA COLONOSCOPY FLX DX W/COLLJ SPEC WHEN PFRMD 06/06/2013 COLONOSCOPY performed by Xavi Aquino MD at [facility] ??? PA ESOPHAGOGASTRODUODENOSCOPY TRANSORAL DIAGNOSTIC 06/06/2013 ESOPHAGOGASTRODUODENOSCOPY performed by Xavi Aquino MD at [facility] ??? PA HYSTEROSCOPY,W/ENDO BX N/A 08/11/2016 HYSTEROSCOPY WITH DILATATION AND CURETTAGE SUCTION performed by Dustin Bill MD at [facility] ??? PA ORAL SURGERY INDUSTRIAL FURNACE FABRICATOR Hx: +H/o abnormal pap smears S/P LEEP [...] FHR: 120, mod variability, +accels, no decels Gerrard: q2-3min Assessment/Plan: 33 y.o. @ 36w2d admitted [...] with Dr. Baca. Irlanda Ames DO PGY3 COLLAR CUTTER Resident Pager#: [phone] documented in this encounter Consult Notes * [...] cared for by Dr. Melo Rey in [place], [place]. I spent 19 minutes in face [...] hours: the patient will be transferred to [facility] and Flaco will be admitted [...] Post-operative Diagnosis: same Surgeon: Terrie Baca MD Court Magistrate: Brenda Armstrong MD Anesthesia: CSE EBL: 330 [...] Hannah Laura - 04/03/2019 1:55 PM CDT Block Trader initiated an encounter with Angela and her , Alvin, in response to the of their daughter, Flaco. Angela was holding Flaco at the time of this encounter. Their nuclear medical tech has been involved with them since Flaco's . I offered poems and prayers that they could use as options forFlaco's and burial. They were accepting of these. Laura Young [facility] phone [phone] * Care Plan - Millie Vargas RN [...] were not included. [facility] Vaginal Protocol [facility] Approved by: [facility] - Medical Executive Committee Approval Date: [...] CBC with differential [facility] Pre-Operative Protocol [facility] Approved by: [facility] - Medical Executive Committee Approval Date: [...] consultation. Adult Influenza and/or Pneumococcal Vaccine Protocol [facility] ORDERS ARE ENTERED ???PER PROTOCOL?? Enter [...] CDT Office Visit [facility] COLLAR CUTTER - Medical [place] [address] [facility] [address] [place] [address] Terrie Baca MD [address] [facility] [address] [address] documented as of this encounter [...] - 9.8 K/uL 04/01/2019 6:27 AM CDT [facility] - [facility] RBC 3.99 3.90 - 4.90 M/uL 04/01/2019 6:27 AM CDT [facility] - [facility] HEMOGLOBIN 12.1 11.8 - 14.8 g/dL 04/01/2019 6:27 AM CDT [facility] - [facility] HEMATOCRIT 37.2 35.5 - 44.0 % 04/01/2019 6:27 AM CDT [facility] - [facility] MCV 93.2 82.0 - 99.0 fL 04/01/2019 6:27 AM CDT [facility] - [facility] MCH 30.3 27.2 - 32.6 pg 04/01/2019 6:27 AM CDT [facility] - [facility] MCHC 32.5 31.5 - 35.5 g/dL 04/01/2019 6:27 AM CDT [facility] - [facility] RDW 13.2 11.5 - 14.5 % 04/01/2019 6:27 AM CDT [facility] - [facility] RDW-STDEV 44.5 37.1 - 48.7 fL 04/01/2019 6:27 AM CDT [employer] LABORATORY SERVICES - . [facility] PLATELETS 255 140 - 350 K/uL 04/01/2019 6:27 AM CDT [employer] LABORATORY SERVICES - . [facility] MPV 9.7 9.3 - 12.4 fL 04/01/2019 6:27 AM CDT [employer] LABORATORY SERVICES - . [facility] NEUTROPHILS 74 % 04/01/2019 6:27 AM CDT [employer] LABORATORY SERVICES - . [facility] LYMPHOCYTES 15 % 04/01/2019 6:27 AM CDT [employer] LABORATORY SERVICES - [facility] MONOCYTES 11 % 04/01/2019 6:27 AM CDT [facility] - [facility] EOSINOPHILS 0 % 04/01/2019 6:27 AM CDT [employer] LABORATORY SERVICES - [facility] BASOPHILS 0 % 04/01/2019 6:27 AM CDT [facility] - [facility] IMMATURE GRANULOCYTES 0 % 04/01/2019 6:27 AM CDT [employer] LABORATORY SERVICES - . [facility] NEUTROPHIL ABSOLUTE 6.56 1.90 - 7.00 K/uL 04/01/2019 6:27 AM CDT [employer] LABORATORY SERVICES - . [facility] LYMPHOCYTE ABSOLUTE 1.29 0.70 - 4.50 K/uL 04/01/2019 6:27 AM CDT [facility] - [facility] MONOCYTE ABSOLUTE 0.97 0.10 - 1.30 K/uL 04/01/2019 6:27 AM CDT [employer] LABORATORY SERVICES - . [facility] EOSINOPHIL ABSOLUTE 0.04 0.00 - 0.70 K/uL 04/01/2019 6:27 AM CDT [employer] LABORATORY SERVICES - . [facility] BASOPHILS ABSOLUTE 0.03 0.00 - 0.20 K/uL 04/01/2019 6:27 AM CDT [facility] LABORATORY SERVICES - . [facility] IMMATURE GRANULOCYTES ABSOLUTE 0.03 0.00 - 0.03 K/uL 04/01/2019 6:27 AM CDT [employer] LABORATORY SERVICES - . [facility] Blood Venipuncture / Unknown 04/01/2019 6:09 AM CDT 04/01/2019 6:21 AM CDT Terrie Baca MD HEMATOLOGY ORDERAB LES [employer] [facility] - [facility] PRIYANK# [id number] [address] [place] [address] * TYPE AND SCREEN (04/01/2019 6:09 AM CDT) ABO GROUP O 04/01/2019 6:09 AM CDT [facility] -- [facility] RH (D) TYPE Positive 04/01/2019 6:09 AM CDT [facility] -- [facility] ANTIBODY SCREEN Negative 04/01/2019 6:09 AM CDT [facility] -- [facility] Blood Venipuncture / Unknown 04/01/2019 6:09 AM CDT 04/01/2019 6:21 AM CDT Terrie Baca MD BLOOD BANK ORDERAB LES Performing Organization Address [facility] Co de Phone Number [employer] -- [facility] CLBLAIRE# [phone] [address] [place] [address] documented in this encounter Visit Diagnoses Not [...] Provider: Pina Montemayor RN)08 (Given - Provider: Mlilie Vargas, ATTILA) ceFAZolin (ANCEF) 2,000 mg in [...] Millie Vargas, ATTILA)2003 (Given - Provider: Pina Monteamyor RN) 020 (Given - Provider: Pina Montemayor, [...] RN) documented in this encounter Care Teams Operating Room Registered Nurse Relationship Specialty Start Date End Date Terrie Baca MD PCP - General Obstetrics and Gynecology 05/27/13 documented as of this encounter
--- OUTSIDE RECORDS SUMMARY | 2024-05-27 15:52 | XMS_ITS | Encounter Summary ---
Author Organization [facility] Address [address] [place] [address] Care Team Providers Care Nuclear Scientist Name Role Phone Terrie Manning MD Primary Care Provider +1- [phone] Encounter Details Date Type Department Care Team (Latest Contact Info) Description 02/26/2020 10:30 AM CDT Ancillary Procedure [facility] FLOORING HELPER - [facility] [address] [phone] Encounter for anatomic survey Social History Tobacco [...] Office Visit [facility] FLOORING HELPER - Medical [facility] [address] [place] [phone] [place] [phone] Terrie Manning MD [address] [facility] [address] [address] documented as of this encounter [...] Follow up as clinicallyindicated. Terrie Manning MD eTrrie Manning MD ORDERABLES documented in this encounter Visit Diagnoses Diagnosis Encounter for anatomic survey documented in this encounter Care Teams Nuclear Scientist Relationship Specialty Start Date End Date Terrie Manning MD PCP - General Obstetrics and Gynecology 05/27/13 documented as of this encounter
--- OUTSIDE RECORDS SUMMARY | 2024-05-27 15:52 | XMS_ITS | Encounter Summary ---
Author Organization [facility] Address 5 [facility] Attn: [place] [address] Care Team Providers Care Payroll Services Analyst Name Role Phone Terrie Manning MD Primary Care Provider +1- [phone] Encounter Details Date Type Department Care Team [...] AM CDT Office Visit [facility] [place] - Medical [place] [address] [phone] Terrie Manning MD [address] [address] documented as of this encounter Visit Diagnoses Not on filedocumented in this encounter Care Teams Payroll Services Analyst Relationship Specialty Start Date End Date Terrie Manning MD PCP - General Obstetrics and Gynecology 05/27/13 documented as of this encounter
--- OUTSIDE RECORDS SUMMARY | 2024-05-27 15:52 | XMS_ITS | Encounter Summary ---
Author Organization [facility] Address [address] [place] [address] Care Team Providers Care College Football Coach Name Role Phone Terrie Manning MD Primary Care Provider +1- [phone] Encounter Details Date Type Department Care Team (Late st Contact Info) Description 04/22/2020 Orders Only [facility] RETRIMMER - Medical [address] [address] Terrie Manning MD [address] [place] [address] Encounter for screening of mother [...] COVID-19? No / Unsure 04/22/2020 10:59 AM GREY IRON MOLDER documented as of this encounter Plan of Treatment Upcoming Encounters Date Type Department Care Team (Late st Contact Info) Description 10/08/2024 9:45 AM CDT Office Visit [facility] - Medical [place] [address] [facility] [address] [place] [address] Terrie Manning MD [facility] [address] [address] documented as of this encounter Results * GLUCOSE TOLERANCE 1 HR GESTATIONAL (04/22/2020 12:06 PM GREY IRON MOLDER) GLUCOSE DOSE 50 Gram 04/22/2020 1:09 PM GREY IRON MOLDER [facility] GLUCOSE 1 HR OBSTETRIC 87 65 - 139 mg/dL 04/22/2020 1:09 PM GREY IRON MOLDER [facility] Blood Venipuncture / Unknown 04/22/2020 12:06 PM GREY IRON MOLDER 04/22/2020 12:18 PM GREY IRON MOLDER Terrie Manning MD CHEMISTRY ORDERABL ES [facility] CLIA# [id number] [address] [facility] [place] [address] documented in this encounter Visit Diagnoses Diagnosis Encounter for screening of mother- Primary Unspecified screening with 28 completed weeks gestation documented in this encounter Care Teams College Football Coach Relationship Specialty Start Date End Date Terrie Manning MD PCP - General Obstetrics and Gynecology 05/27/13 documented as of this encounter
--- OUTSIDE RECORDS SUMMARY | 2024-05-27 15:52 | XMS_ITS | Encounter Summary ---
Author Organization [facility] Address [address] [place] [address] Care Team Providers Care Cna Instructor Name Role Phone Terrie Manning MD Primary Care Provider +1- [phone] Reason for Visit * Auth/Cert Specialty Diagnoses / Procedures Referred By Contac t Referred To Contact Obstetrics and Gynecology Diagnoses EDC 04/27 Hx of classical Trisomy 18 Procedures SECTION [facility] [address] [place] [address] Referral ID Status Reason Start Date Expiration Date Visits Re quested Visits Authorized [id number] 1 1 Encounter Details Date Type Department Care Team (Late st Contact Info) Description 04/01/2019 7:47 AM CDT Anesthesia Event [facility] Labor & [address] [place] [address] Elida Bush MD [address] [facility] [address] [place] [address] Anesthesia Record Procedure Summary Procedure Name Responsible Anesthesiologist Anesthesia Start Time Anesthesia Stop Time SECTION (Abdomen) Elida Bush MD 04/01/19 0747 04/01/19 0900 Events Date Time Event Comment 04/01/2019 0702 0747 An Start 0747 AN Equip Check Anesthesia eq uipment and materials checked in accordance with local policy. 0747 An Start Data 0747 In Room This event disp lays the In Room time documented in the Surgical Log. Deleting this event will not remove it from the log but will remove it from the Grid and Graph timeline. 0749 Pre-Induction Immediate pre- induction anesthetic assessment performed. Vital signs as noted on graphic. 0757 Quick Note No block from s jaylan, epidural dosed. 0809 Anesthesia Ready Good block. Rachelle 0816 Procedure Start This event d isplays the Procedure Start time documented in the Surgical Log. Deleting this event will not remove it from the log but will remove it from the Grid and Graph timeline. 0833 Quick Note Uterine tone ad equate. Sanamstmakayla 0845 an stop data 0845 Procedure Stop This event di splays the Procedure Stop time documented in the Surgical Log. Deleting this event will not remove it from the log but will remove it from the Grid and Graph timeline. 0848 Quick Note Present on Labo r and to ensure safe and adequate regional anesthesia for surgery, stable physiology after delivery, and uneventful transfer to recovery area. Elida Bush MD 0850 Out of Room This event disp lays the Out of Room time documented in the Surgical Log. Deleting this event will not remove it from the log but will remove it from the Grid and Graph timeline. 0900 An Stop Meds Name Total ondansetron (ZOFRAN) 4??mg/2 mL injectio n 4 mg bupivacaine 0.75% in dextros e 8.25% PF (MARCAINE SPINAL) injection solution 1.6 mL ketorolac (TORADOL) injection 30 mg 30 m g fentaNYL PF (SUBLIMAZE) 15 mcg/0.3 mL sy ringe 15 mcg 15 mcg phenylephrine (RAMANA-SYNEPHRIN E) 25 mg/250 mL 0.9% sodium chloride infusion (INTRA-OP USE ONLY) 2,468.48 mcg phenylephrine in NS (PF) 0.5 mg/5 mL syr lindsey 500 mcg chloroprocaine (NESACAINE MPF) 3% inject ion 20 mL lidocaine PF-EPINEPHrine (XY LOCAINE MPF-EPI) 2 %-1:200,000 10 mL with sodium bicarbonate 4.2 % 1 mL SOLUTION 5 mL meperidine (DEMEROL) 25 mg/0.5 mL inject ion 25 mg oxytocin (PITOCIN) 20 units in sodium ch loride 0.9% 1000 mL 700 mL lactated ringers infusion 800 mL * Agents Name O2 Inspired O2 N2O Inspired N2O * Blood No blood administrations on file. Lines, Drains, and Airways Type Details Placement Removal Indwelling Urethral Catheter 04/01/19; No; Indwelling double lumen catheter; latex; 16 Fr; inserted; 1; 10; 10; 04/02/19; 0201 04/01/19 0000 by Terrie Rey RN 04/02/19 0201 by Pina Cameron RN Peripheral IV Pre-Hospital Start: No; Orientation: Anterior, Left; Location: Arm; Device: Angiocath; Gauge: 18 gauge; Needle Length: 1.25 in length; Insertion Attempts: 1; Patient Tolerance: tolerated well; Removal Indication: no longer indicated; Removal Interventions: direct pressure, catheter intact 04/01/19 0600 by Terrie Rey RN 04/02/19 1240 by Millie Vargas RN Incision 04/01/19; 0727; surgical incision; Bilateral; abdomen; 04/04/19; 0109 04/01/19 0727 by Lilli Roberts RN 04/04/19 0109 by PROVIDER, DISCHARGE PATIENT Epidural 04/01/19 0844 by Claudette Mcfadden CRNA 04/02/19 1033 by Millie Vargas RN documented in this encounter Social History Tobacco [...] OR Notes * Anesthesia Postprocedure Evaluation - Micheline Carter MD - 04/01/2019 12:47 PM CDT Post Anesthesia Evaluation Vitals: Vitals Value Taken Time BP 115/74 04/01/2019 11:29 AM Temp 36.8 ??C 04/01/2019 11:00 AM Resp 20 04/01/2019 10:39 AM SpO2 100 % 04/01/2019 10:39 AM Pulse 99 04/01/2019 11:00 AM Heart Rate 99 bpm 04/01/2019 11:29 AM Vitals shown include unvalidated device data. Pain Rating: Pain Rating: Rest: 3 (04/01/19 1100) Anesthesia Post Evaluation Patient location during evaluation: [...] no respiratory symptoms Hydration status: well hydrated Micheline Carter MD * Anesthesia Handoff - Claudette Devi CRNA - 04/01/2019 8:59 AM CDT Post-Anesthetic transfer of care report elements [...] and acknowledgement of understanding. Vital Signs: BP: 117/65 (04/01/2019 8:57 AM) Pulse: (!) 114 (04/01/2019 8:57 AM) Temp: 36.6 ??C (04/01/2019 8:57 AM) Resp: 20 (04/01/2019 8:57 AM) SpO2: 99 % (04/01/2019 8:57 AM) 8:59 AM Claudette Devi CRNA * Anesthesia Procedure Notes - Claudette Devi CRNA - 04/01/2019 8:42 AM CDT Associated Order(s): Anesthesia CSE Block Anesthesia CSE Block Patient location during procedure: OR Staffing Performed by: Claudette Devi CRNA Preanesthetic Checklist Completed: patient identified, pre-op evaluation, timeout performed, IV checked, risks and benefitsdiscussed and monitors and equipment checked CSE Hand hygiene performed prior to procedure Patient was prepped and draped in usual sterile fashion Time out performed Mask worn Patient position: Sitting Prep: ChloraPrep and site prepped and draped Local Anesthetic: Lidocaine 1% without epinephrine Patient monitoring: Continuous pulse oximetry and Non-invasive blood pressure Approach: Midline Slater-Marietta Identification: palpation technique Number of Attempts: 1 Spinal Needle Needle type: Pencil-tip Needle gauge: 27 G Needle length: 5 in CSF visualized Epidural Needle Identification Technique: SHILPA saline Needle Type: Tuohy Needle Gauge: 17 G Needle Length: 10 cm Needle Insertion Depth (cm): 7 Location: Lumbar (1-5) Catheter Catheter Type: Side holeCatheter Size: 19 GSkin Depth (cm): 12 Test dose: Lidocaine 1.5% with epinephrine 1-to-200,000 and Negative Test dose: 3 Events: easy and well toleratedSecured with: Tegaderm Assessment Outcome: A full evaluation is pending Additional Notes Spinal level not achieved. Epidural dosed for surgery. T4 level attained. * Anesthesia Preprocedure Evaluation - Elida Bush MD - 04/01/2019 6:57 AM CDT Relevant Problems No relevant active problems Anesthesia Evaluation Patient summary reviewed Airway TM distance: >3 FB Neck ROM: full Dental - normal exam Pulmonary - negative ROS and normal exam breath sounds clear to auscultation (-) sleep apnea Cardiovascular - negative ROS and normal exam Rhythm: regular Rate: normal ROS comment: Septal defect that closed by patient history. No symptoms. Neuro/Psych - negative ROS GI/Hepatic/Renal (+) GERD, Comments: IBS Endo/Other - negative ROS Comments: Baby with Trisomy 18 Abdominal Anesthesia History History of PONV (Severe post-op nausea and vomitting with Duramorph with first delivery).No historyof anesthetic complications, no history of difficult intubation, no history of malignant hyperthermia and no pseudocholinesterase deficiency. Anesthesia Plan ASA Final: 2 Spinal N/A induction NPO status > 6 hours Anesthetic plan and risks discussed with Patient. Use of blood products: consented to blood products. Post-op analgesia: Spinal morphine. Spinal Plan for postoperative opioid use assessment indications: previous and Trisomy 18 para: Gestational age: 36w2d Temp: 37 ??C (04/01/19624) Temp src: Oral (04/01/19624) Pertinent interval changes in the patient's history or review of systems: None Recommendations: Nausea prophylaxis or GI prophylaxis Choice of Anesthesia/Anesthesia Plan: Proceed and Regional Postop pain management discussed History reviewed, patient [...] Office Visit [facility] NATUROPATHIC PHYSICIAN - [facility] [address] [place] [address] Terrie Manning MD [facility] [address] [address] documented as of this encounter Procedures Procedure Name Priority Date/Time Associated Diagnosis Comments DC ANESTHESIA BLOCK PB PLACEHOLDER CHARGE Routine 04/01/2019 8:42 AM CDT documented in this encounter Results * DC ANESTHESIA BLOCK PB PLACEHOLDER CHARGE (04/01/2019 8:42 AM CDT) Narrative Claudette Devi CRNA - 04/01/2019 8:42 AM CDT Claudette Devi CRNA ? 04/01/2019 ??8:44 AM Anesthesia CSE Block Patient location during procedure: OR Staffing Performed by: Claudette Devi CRNA ?? Preanesthetic Checklist Completed: patient identified, pre-op evaluation, timeout performed, IV checked, risks and benefits discussed and monitors and equipment checked CSE Hand hygiene performed prior to procedure Patient was prepped and draped in usual sterile fashion Time out performed Mask worn Patient position: Sitting Prep: ChloraPrep and site prepped and draped ?? Local Anesthetic: Lidocaine 1% without epinephrine Patient monitoring: Continuous pulse oximetry and Non-invasive blood pressure Approach: Midline Slater-Marietta Identification: palpation technique Number of Attempts: 1 Spinal Needle Needle type: Pencil-tip Needle gauge: 27 G Needle length: 5 in CSF visualized Epidural Needle Identification Technique: SHILPA saline Needle Type: Tuohy Needle Gauge: 17 G Needle Length: 10 cm Needle Insertion Depth (cm): 7 Location: Lumbar (1-5) Catheter Catheter Type: Side holeCatheter Size: 19 GSkin Depth (cm): 12 Test dose: Lidocaine 1.5% with epinephrine 1-to-200,000 and Negative ?? Test dose: 3 Events: easy and well toleratedSecured with: Tegaderm Assessment Outcome: A full evaluation is pending Additional Notes Spinal level not achieved. Epidural dosed for surgery. T4 level attained. Elida Bush MD PROCEDURE/MINOR ABEL RGICAL ORDERABLES documented in this encounter Visit Diagnoses Not on filedocumented in this encounter Administered Medications Inactive Administered Medications - up to 3 most recent administrations Medication Order MAR Action Action Date Dose Rate Site bupivacaine-dextrose (PF) (MARCAINE SPINAL, SENSORCAINE-MPF) injection INTRA-PROCEDURE PRN, Starting on Mon04/01/19 at 0752, Until Mon04/01/19 at 0900, Routine, Anesthesia Intra-op Given 04/01/2019 7:52 AM CDT 1.6 mL chloroprocaine (NESACAINE MPF) 30 mg/mL (3 %) injection INTRA-PROCEDURE PRN, Starting on Mon04/01/19 at 0755, Until Mon04/01/19 at 0900, Routine, Anesthesia Intra-op Given 04/01/2019 8:05 AM CDT 5 mL Given 04/01/2019 8:02 AM CDT 5 mL Given 04/01/2019 7:55 AM CDT 5 mL fentaNYL PF (SUBLIMAZE) 15 mcg/0.3 mL syringe 15 mcg 15 mcg, See Admin Instructions, INTRA-PROCEDURE ONCE, 1 dose, Starting on Mon04/01/19 at 0706, Until Mon04/01/19 at 0752, Routine Given 04/01/2019 7:52 AM CDT 15 mcg ketorolac (TORADOL) injection 30 mg 30 mg, IV, ONE TIME ONLY, 1 dose, On Mon04/01/19 at 0715, Routine, (OB POST-OP PAIN SERVICE) Given 04/01/2019 8:40 AM CDT 30 mg lactated ringers infusion IV, at 125 mL/hr, PRE-PROCEDURE CONTINUOUS, Starting on Mon04/01/19 at 0600, Until Mon04/01/19 at 1231, Routine, Pre-op Continue from Pre-Op 04/01/2019 7:47 AM CDT New Bag 04/01/2019 7:16 AM CDT 125 mL/hr lidocaine PF-EPINEPHrine (XYLOCAINE MPF-EPI) 2 %-1:200,000 10 mL with sodium bicarbonate 4.2 % 1 mL SOLUTION INTRA-PROCEDURE CONTINUOUS PRN, Starting on Mon04/01/19 at 0838, Until Mon04/01/19 at 0900, Routine, Anesthesia Intra-op New Bag 04/01/2019 8:38 AM CDT 5 mL meperidine (PF) (DEMEROL) injection INTRA-PROCEDURE PRN, Starting on Mon04/01/19 at 0838, Until Mon04/01/19 at 0900, Routine, Anesthesia Intra-op Given 04/01/2019 8:38 AM CDT 25 mg ondansetron (ZOFRAN) 4 mg/2 mL injection INTRA-PROCEDURE PRN, Starting on Mon04/01/19 at 0713, Until Mon04/01/19 at 0900, Routine, Anesthesia Intra-op Given 04/01/2019 7:13 AM CDT 4 mg oxytocin in sodium chloride 0.9 % (PITOCIN) 20 units in 1,000 mL infusion INTRA-PROCEDURE CONTINUOUS PRN, Starting on Mon04/01/19 at 0820, Until Mon04/01/19 at 0900, Routine, Anesthesia Intra-op New Bag 04/01/2019 8:20 AM CDT phenylephrine (RAMANA-SYNEPHRINE) 25 mg/250 mL 0.9% sodium chloride infusion (INTRA-OP USE ONLY) 0.5 mcg/kg/min ? 81.2 kg (24.36 mL/hr, rounded to 24.4 mL/hr), IV, INTRA-PROCEDURE CONTINUOUS, Starting on Mon04/01/19 at 0715, Until Mon04/01/19 at 1114 Rate Change 04/01/2019 8:37 AM CDT 0.3 mcg/kg/min 14.6 mL/hr Rate Change 04/01/2019 8:30 AM CDT 0.5 mcg/kg/min 24.4 mL/ hr Rate Change 04/01/2019 8:27 AM CDT 0.7 mcg/kg/min 34.1 mL/ hr phenylephrine in NS 0.5 mg/5 mL (100 mcg/mL) injection INTRA-PROCEDURE PRN, Starting on Mon04/01/19 at 0808, Until Mon04/01/19 at 0900, Routine, Anesthesia Intra-op Given 04/01/2019 8:26 AM CDT 100 mcg Given 04/01/2019 8:18 AM CDT 200 mcg Given 04/01/2019 8:08 AM CDT 200 mcg documented in this encounter Care Teams Cna Instructor Relationship Specialty Start Date End Date Terrie Manning MD PCP - General Obstetrics and Gynecology 05/27/13 documented as of this encounter
--- OUTSIDE RECORDS SUMMARY | 2024-05-27 15:52 | XMS_ITS | Encounter Summary ---
Author Organization [facility] Address [address] [place] [address] Care Team Providers Care Account Executive Software Sales Name Role Phone Terrie Baca MD Primary Care Provider +1- [phone] Reason for Visit * Reason Comments Post- Care Encounter Details Date Type Department Care Team (Late st Contact Info) Description 04/16/2019 2:40 PM CARPET JACK Office Visit [facility] BONDACTOR MACHINE OPERATOR - Medical [address] [address] Terrie Baca MD [facility] [address] [address] Surgery follow-up (Primary Dx) Social [...] Comments Blood Pressure 128/76 04/16/2019 2:37 PM CARPET JACK Pulse - - Temperature - - Respiratory Rate - - Oxygen Saturation - - Inhaled Oxygen Concentration - - Weight 74.3 kg (163 lb 12.8 oz) 04/16/2019 2:37 PM CARPET JACK Height - - Body Mass Index 23.5 [...] tolerated. Call for problems. Terrie Baca MD ET JACK documented in this encounter Plan of Treatment Upcoming Encounters Date Type Department Care Team (Late st Contact Info) Description 10/08/2024 9:45 AM CDT Office Visit [facility] BONDACTOR MACHINE OPERATOR - [facility] [address] [place] [phone] Terrie Baca MD [facility] [address] [address] documented as of this encounter Visit Diagnoses Diagnosis Surgery follow-up- Primary Follow-up examination, following unspecified surgery documented in this encounter Care Teams Account Executive Software Sales Relationship Specialty Start Date End Date Terrie Baca MD PCP - General Obstetrics and Gynecology 05/27/13 documented as of this encounter
--- OUTSIDE RECORDS SUMMARY | 2024-05-27 15:52 | XMS_ITS | Encounter Summary ---
Author Organization [facility] Address [address] [facility] Attn: [place] [address] Care Team Providers Care Trolley Coach Driver Name Role Phone Terrie Manning MD Primary Care Provider +1- [phone] Encounter Details Date Type Department Care Team [...] AM CDT Office Visit [facility] PROTOTYPE CARPENTER - Medical [place] [address] [phone] Terrie Manning MD [address] [address] documented as of this encounter Visit Diagnoses Not on filedocumented in this encounter Care Teams Trolley Coach Driver Relationship Specialty Start Date End Date Terrie Manning MD PCP - General Obstetrics and Gynecology 05/27/13 documented as of this encounter
--- OUTSIDE RECORDS SUMMARY | 2024-05-27 15:52 | XMS_ITS | Encounter Summary ---
Author Organization [facility] Address 5 [facility] Attn: [place] [address] Care Team Providers Care Unix Analyst Name Role Phone Terrie Manning MD Primary Care Provider +1- [phone] Encounter Details Date Type Department Care Team [...] COVID-19? No / Unsure 05/20/2020 11:38 AM SUPERVISOR FLESHING documented as of this encounter Plan of Treatment Upcoming Encounters Date Type Department Care Team (Late st Contact Info) Description 10/08/2024 9:45 AM CDT Office Visit [facility] DIETARY SERVER - Medical [place] [address] [place] [phone] Terrie Manning MD [address] [address] documented as of this encounter Visit Diagnoses Not on filedocumented in this encounter Care Teams Unix Analyst Relationship Specialty Start Date End Date Terrie Manning MD PCP - General Obstetrics and Gynecology 05/27/13 documented as of this encounter
--- OUTSIDE RECORDS SUMMARY | 2024-05-27 15:52 | XMS_ITS | Encounter Summary ---
Author Organization [facility] Address 5 [facility] Attn: [place] [address] Care Team Providers Care Kiln Hand Name Role Phone Terrie Manning MD Primary Care Provider +1- [phone] Encounter Details Date Type Department Care Team [...] Office Visit [facility] BRICK MOLDER HAND - Medical [place] [address] [place] [phone] Terrie Manning MD [address] [address] documented as of this encounter Visit Diagnoses Not on filedocumented in this encounter Care Teams Kiln Hand Relationship Specialty Start Date End Date Terrie Manning MD PCP - General Obstetrics and Gynecology 05/27/13 documented as of this encounter
--- OUTSIDE RECORDS SUMMARY | 2024-05-27 15:52 | XMS_ITS | Encounter Summary ---
Author Organization [facility] Address [address] [place] [address] Care Team Providers Care Yeast Maker Name Role Phone Terrie Manning MD Primary Care Provider +1- [phone] Encounter Details Date Type Department Care Team (Latest Contact Info) Description 01/29/2020 1:00 PM CDT Ancillary Procedure [facility] OCCUPATIONAL THERAPY ASST - [facility] [address] [place] [address] with poor obstetric history Social History [...] 9:45 AM CDT Office Visit [facility] OCCUPATIONAL THERAPY ASST - Medical [facility] [address] [place] [address] [place] [phone] Terrie Manning MD [address] [facility] [address] [address] documented as of this encounter [...] history documented in this encounter Care Teams Yeast Maker Relationship Specialty Start Date End Date Terrie Manning MD PCP - General Obstetrics and Gynecology 05/27/13 documented as of this encounter
--- OUTSIDE RECORDS SUMMARY | 2024-05-27 15:52 | XMS_ITS | Encounter Summary ---
Author Organization [facility] Address [address] [place] [address] Care Team Providers Care Puller Over Name Role Phone Terrie Baca MD Primary Care Provider +1- [phone] Reason for Visit * Reason Comments Post- Care Encounter Details Date Type Department Care Team (Late st Contact Info) Description 05/14/2019 1:20 PM CRAFT CENTER DIRECTOR Office Visit [facility] COMPLAINTS COORDINATOR - Medical [address] [address] Terrie Baca MD [facility] [address] [address] Status post section routine follow-up [...] Comments Blood Pressure 112/72 05/14/2019 1:15 PM CRAFT CENTER DIRECTOR Pulse - - Temperature - - Respiratory Rate - - Oxygen Saturation - - Inhaled Oxygen Concentration - - Weight 75.7 kg (166 lb 12.8 oz) 019 1:15 PM CRAFT CENTER DIRECTOR Height - - Body Mass Index 23.93 [...] unless need arises prior. Terrie Baca MD T CENTER DIRECTOR documented in this encounter Plan of Treatment Upcoming Encounters Date Type Department Care Team (Late st Contact Info) Description 10/08/2024 9:45 AM CDT Office Visit [facility] COMPLAINTS COORDINATOR - Medical [place] [address] [facility] [address] [place] [phone] Terrie Baca MD [facility] [facility] [address] [address] documented as of this encounter Visit Diagnoses Diagnosis Status post section routine follow-up- Primary Routine follow-up documented in this encounter Care Teams Puller Over Relationship Specialty Start Date End Date Terrie Baca MD PCP - General Obstetrics and Gynecology 05/27/13 documented as of this encounter
--- OUTSIDE RECORDS SUMMARY | 2024-05-27 15:52 | XMS_ITS | Encounter Summary ---
Author Organization [facility] Address 5 [facility] Attn: [place] [address] Care Team Providers Care Raise Drill Operator Name Role Phone Terrie Manning MD Primary Care Provider +1- [phone] Encounter Details Date Type Department Care Team [...] [facility] MERCHANDISE COMPLAINT ADJUSTER - Medical [facility] [address] [facility] [address] [phone] Terrie Manning MD [address] [facility] [address] [address] documented as of this encounter Visit Diagnoses Not on filedocumented in this encounter Care Teams Raise Drill Operator Relationship Specialty Start Date End Date Terrie Manning MD PCP - General Obstetrics and Gynecology 05/27/13 documented as of this encounter
--- OUTSIDE RECORDS SUMMARY | 2024-05-27 15:52 | XMS_ITS | Encounter Summary ---
Author Organization [facility] Address [address] [place] [address] Care Team Providers Care Pals Specialist Name Role Phone Terrie Manning MD Primary Care Provider +1- [phone] Encounter Details Date Type Department Care Team (Latest Contact Info) Description 12/18/2019 11:47 AM CDT - 12/18/2019 11:59 PM T Hospital Encounter [facility] Laboratory Services Medical [place] [address] [place] [address], [place] [address] Terrie Manning MD [facility] S. [facility] [address] [address] Discharge Disposition: Home or Self [...] AM CDT Office Visit [facility] PIPE STRAIGHTENER - Medical [facility] [address] [address] Terrie Manning MD [address] [facility] [address] [place] [address] documented as of this encounter [...] ve Non-reacti ve 12/18/2019 1:11 PM CDT [facility] Blood Venipuncture / Unknown 12/18/2019 12:04 PM CDT 12/18/2019 12:13 PM CDT [facility] LABORATORY [facility] - 12/18/2019 1:11 PM CDT Initial HIV testing was performed by [employer] on the Erin Maria A e602 module. Values obtained with different assay methods cannot be used interchangeably. Non- Reactive results does not rule out HIV infection. If acute HIV-1 infection is suspected, submit plasma specimen for HIV-1 RNA quantification test (HIVQU). Terrie Manning MD CHEMISTRY ORDERABL ES [facility] [employer] [facility] CLIA# [id number] [address] [facility] [place] [address] * TYPE AND SCREEN, (12/18/2019 12:04 PM CDT) ABO GROUP O 12/18/2019 12:04 PM CDT [facility] [employer] [facility] RH (D) TYPE Positive 12/18/2019 12:04 PM CDT [facility] [employer] [facility] ANTIBODY SCREEN Negative 12/18/2019 12:04 PM CDT [facility] LABORATORY [facility] Blood Venipuncture / Unknown 12/18/2019 12:04 PM CDT 12/18/2019 12:13 PM CDT Terrie Manning MD BLOOD BANK ORDERAB LES Performing Organization Address [facility]/ZIP Co de Phone Number [facility] [employer] [facility]# [id number] [address] [place] [address] * RUBELLA IGG (12/18/2019 12:04 PM CDT) Pathologist [facility] RUBELLA IGG IMMUNE Immune - Positive 12/18/2019 12:54 PM CDT [facility] LABORATORY [facility] Blood Venipuncture / Unknown 12/18/2019 12:04 PM CDT 12/18/2019 12:13 PM CDT Narrative [facility] LABORATORY [facility] - 12/18/2019 12:54 PM CDT A positive result suggests response to immunization or prior exposure to the virus. Terrie Manning MD CHEMISTRY ORDERABL ES Performing Organization Address [facility] Co de Phone Number [facility] [employer] [facility]# [id number] [address] [place] [address] * RPR (12/18/2019 12:04 PM CDT) Pathologist [facility] RPR NON-REACTI VE Non-Reacti ve 12/18/2019 2:17 PM CDT [facility] Blood Venipuncture / Unknown 12/18/2019 12:04 PM CDT 12/18/2019 12:13 PM CDT Terrie Manning MD CHEMISTRY ORDERABL ES Performing Organization Address City/[facility]/ZIP Co de Phone Number [facility] [employer] [facility]# [id number] [address] [place] [address] * HEPATITIS B SURFACE ANTIGEN (12/18/2019 12:04 PM CDT) Pathologist [facility] HEPATITIS B SURFACE AG NON-REACTI VE Non-reacti ve 12/18/2019 1:42 PM CDT [facility] LABORATORY SERVICES [facility] Blood Venipuncture / Unknown 12/18/2019 12:04 PM CDT 12/18/2019 12:13 PM CDT Terrie Manning MD CHEMISTRY ORDERABL ES [facility] LABORATORY SERVICES [facility] CLIA# [id number] 5 [facility] [place] [id number] * (ABNORMAL) CBC WITH DIFFERENTIAL (12/18/2019 12:04 PM CDT) WBC 6.0 4.0 - 9.8 K/uL 12/18/2019 12:30 PM CDT [facility] LABORATORY SERVICES - [facility] RBC 3.98 3.90 - 4.90 M/uL 12/18/2019 12:30 PM CDT [facility] LABORATORY SERVICES - [facility] HEMOGLOBIN 11.9 11.8 - 14.8 g/dL 12/18/2019 12:30 PM CDT [facility] LABORATORY SERVICES - [facility] HEMATOCRIT 36.7 35.5 - 44.0 % 12/18/2019 12:30 PM CDT [facility] LABORATORY SERVICES - [facility] MCV 92.2 82.0 - 99.0 fL 12/18/2019 12:30 PM CDT [facility] LABORATORY SERVICES - [facility] MCH 29.9 27.2 - 32.6 pg 12/18/2019 12:30 PM CDT [facility] LABORATORY SERVICES - [facility] MCHC 32.4 31.5 - 35.5 g/dL 12/18/2019 12:30 PM CDT [facility]ORATORY SERVICES - [facility] RDW 12.3 11.5 - 14.5 % 12/18/2019 12:30 PM CDT [facility]ORATORY SERVICES - [facility] RDW-STDEV 41.2 37.1 - 48.7 fL 12/18/2019 12:30 PM CDT [facility]ORAT[facility] SERVICES - [facility] PLATELETS 327 140 - 350 K/uL 12/18/2019 12:30 PM CDT [facility]ORATORY SERVICES - [facility] MPV 9.1(L) 9.3 - 12.4 fL 12/18/2019 12:30 PM CDT [facility] LABORATORY SERVICES - [facility] NEUTROPHILS 66 % 12/18/2019 12:30 PM CDT [facility] LABORATORY SERVICES - [facility] LYMPHOCYTES 25 % 12/18/2019 12:30 PM CDT [facility] LABORATORY SERVICES - [facility] MONOCYTES 8 % 12/18/2019 12:30 PM CDT [facility] LABORATORY SERVICES - [facility] EOSINOPHILS 1 % 12/18/2019 12:30 PM CDT [facility] LABORATORY SERVICES [facility] BASOPHILS 0 % 12/18/2019 12:30 PM CDT [facility] LABORATORY SERVICES - [facility] IMMATURE GRANULOCYTES 0 % 12/18/2019 12:30 PM CDT [facility] LABORATORY SERVICES [facility] NEUTROPHIL ABSOLUTE 3.94 1.90 - 7.00 K/uL 12/18/2019 12:30 PM CDT [facility] LABORATORY SERVICES [facility] LYMPHOCYTE ABSOLUTE 1.51 0.70 - 4.50 K/uL 12/18/2019 12:30 PM CDT [facility] LABORATORY [facility] MONOCYTE ABSOLUTE 0.50 0.10 - 1.30 K/uL 12/18/2019 12:30 PM CDT [facility] LABORATORY [facility] EOSINOPHIL ABSOLUTE 0.03 0.00 - 0.70 K/uL 12/18/2019 12:30 PM CDT [facility] LABORATORY SERVICES - [facility] BASOPHILS ABSOLUTE 0.02 0.00 - 0.20 K/uL 12/18/2019 12:30 PM CDT [facility] LABORATORY [facility] IMMATURE GRANULOCYTES ABSOLUTE 0.01 0.00 - 0.03 K/uL 12/18/2019 12:30 PM CDT [facility] LABORATORY [facility] Blood Venipuncture / Unknown 12/18/2019 12:04 PM CDT 12/18/2019 12:13 PM CDT Terrie Manning MD HEMATOLOGY ORDERAB LES [facility]# [id number] [address] [facility] [place] [address] * (ABNORMAL) TSH (12/18/2019 12:04 PM CDT) TSH 0.09(L) 0.27 - 4.20 uIU/mL 12/18/2019 12:58 PM CDT [facility] LABORATORY [facility] Blood Venipuncture / Unknown 12/18/2019 12:04 PM CDT 12/18/2019 12:13 PM CDT Terrie Manning MD CHEMISTRY ORDERABL ES [facility] LABORATORY [facility] CLIA# [id number] [address] [facility] [place] [address] documented in this encounter Visit Diagnoses Diagnosis 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
--- OUTSIDE RECORDS SUMMARY | 2024-05-27 15:52 | XMS_ITS | Encounter Summary ---
Author Organization [facility] Address [address] [facility] Attn: [place] [address] Care Team Providers Care Perfume Maker Name Role Phone Terrie Manning MD Primary Care Provider +1- [phone] Encounter Details Date Type Department Care Team [...] CDT Office Visit [facility] PAI GOW DEALER - Medical [place] [address] [place] [phone] Terrie Manning MD [address] [address] documented as of this encounter Visit Diagnoses Not on filedocumented in this encounter Care Teams Perfume Maker Relationship Specialty Start Date End Date Terrie Manning MD PCP - General Obstetrics and Gynecology 05/27/13 documented as of this encounter
--- OUTSIDE RECORDS SUMMARY | 2024-05-27 15:52 | XMS_ITS | Encounter Summary ---
Author Organization [facility] Address [address] [place] [address] Care Team Providers Care Alcoholic Counselor Name Role Phone Terrie Manning MD Primary Care Provider +1- [phone] Encounter Details Date Type Department Care Team (Late st Contact Info) Description 09/03/2019 Orders Only [facility] THEOLOGY TEACHER - Medical [address] [address] Terrie Manning MD [address] [place] [address] Social History Tobacco Use Types [...] Office Visit [facility] THEOLOGY TEACHER - Medical [facility] [address] [address] Terrie Manning MD [address] [facility] [address] [address] documented as of this encounter Visit Diagnoses Not on filedocumented in this encounter Care Teams Alcoholic Counselor Relationship Specialty Start Date End Date Terrie Manning MD PCP - General Obstetrics and Gynecology 05/27/13 documented as of this encounter
--- OUTSIDE RECORDS SUMMARY | 2024-05-27 15:52 | XMS_ITS | Encounter Summary ---
Author Organization [facility] Address [address] [place] [address] Care Team Providers Care Handbag Stitcher Name Role Phone Terrie Baca MD Primary Care Provider +1- [phone] Reason for Visit * Reason Comments Routine Visit Encounter Details Date Type Department Care Team (Late st Contact Info) Description 05/20/2020 11:30 AM MARINATOR visit [facility] COMPLIANCE REVIEWER - Medical [address] [address] Terire Baca MD [address] [place], [place] [address] [address] Trisomy 18 in child of [...] COVID-19? No / Unsure 05/20/2020 11:38 AM MARINATOR documented as of this encounter Last Filed Vital Signs Vital Sign Reading Time Taken Comments Blood Pressure 116/70 05/20/2020 11:42 AM MARINATOR Pulse - - Temperature - - Respiratory Rate - - Oxygen Saturation - - Inhaled Oxygen Concentration - - Weight 84.5 kg (186 lb 3.2 oz) 05/20/2020 11:42 AM MARINATOR Height - - Body Mass Index 26.72 04/01/2019 6:25 AM CDT documented in this encounter Progress Notes * Mariann Martin - 05/20/2020 4:50 PM CST Pt was given a Tdap immunization today in the office. Pt tolerated injection well and left the office in stable condition. NATOR * Terrie Baca MD - 05/20/2020 12:30 PM CST 30-35 Weeks LOUIE SUBJECTIVE: Reports +FM; no LOF, VB, regular UCs. OBJECTIVE: See flowsheet. ASSESSMENT: 34 y.o. at 32w0d wks PLAN: Prior c/s with [facility] at 36 wks Prior child with Trisomy 18. NL NIPT. Anxiety-Cont Zoloft. TDAP today. Routine care RTC 2 wks. Pt to call/come with further questions/concerns. Terrie Baca MD NATOR documented in this encounter Plan of Treatment Upcoming Encounters Date Type Department Care Team (Late st Contact Info) Description 10/08/2024 9:45 AM CDT Office Visit [facility] COMPLIANCE REVIEWER - Medical [facility] [address] [address] [address] Terrie Baca MD [address] [facility] [address] [address] documented as of this encounter Visit Diagnoses Diagnosis 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 , currently , third trimester- Primary Anxiety state Anxiety state, unspecified History of low vertical section 32 weeks gestation of state, incidental documented in this encounter Care Teams Handbag Stitcher Relationship Specialty Start Date End Date Terrie Baac MD PCP - General Obstetrics and Gynecology 05/27/13 documented as of this encounter
--- OUTSIDE RECORDS SUMMARY | 2024-05-27 15:52 | XMS_ITS | Encounter Summary ---
Author Organization [facility] Address [address] [place] [address] Care Team Providers Care Mds Nurse Name Role Phone Terrie Manning MD Primary Care Provider +1- [phone] Reason for Visit * Reason Comments Medication Refill Encounter Details Date Type Department Care Team (Late st Contact Info) Description 07/21/2019 Refill [facility]3] ASSISTANCE REPRESENTATIVE - Medical [address] [address] Terrie Manning MD [address] [place] [address] Social History Tobacco Use Types [...] 07/22/2019 8:31 AM CST Approved and sent. ATRIC NURSING ASSISTANT documented in this encounter Plan of Treatment Upcoming Encounters Date Type Department Care Team (Late st Contact Info) Description 10/08/2024 9:45 AM CDT Office Visit [facility]3] ASSISTANCE REPRESENTATIVE - [facility] [address] [address] Terrie Manning MD [address] [facility] [address] [place] [address] documented as of this encounter Visit Diagnoses Not on filedocumented in this encounter Care Teams Mds Nurse Relationship Specialty Start Date End Date Terrie Manning MD PCP - General Obstetrics and Gynecology 05/27/13 documented as of this encounter
--- OUTSIDE RECORDS SUMMARY | 2024-05-27 15:52 | XMS_ITS | Encounter Summary ---
Author Organization [facility] Address [address] [place] [address] Care Team Providers Care Auto Parts Professional Name Role Phone Terrie Manning MD Primary Care Provider +1- [phone] Encounter Details Date Type Department Care Team (Late st Contact Info) Description 02/13/2020 Abstract [facility] SUEDING AND BUFFING MACHINE OPERATOR - Medical [address] [address] Terrie Manning MD [address] [place] [address] Social History Tobacco Use Types [...] Description 10/08/2024 9:45 AM CDT Office Visit [facility] SUEDING AND BUFFING MACHINE OPERATOR - Medical [facility] [address] [address] Terrie Manning MD [address] [facility] [address] [address] documented as of this encounter Visit Diagnoses Not on filedocumented in this encounter Care Teams Auto Parts Professional Relationship Specialty Start Date End Date Terrie Manning MD PCP - General Obstetrics and Gynecology 05/27/13 documented as of this encounter
--- OUTSIDE RECORDS SUMMARY | 2024-05-27 15:52 | XMS_ITS | Encounter Summary ---
Author Organization [facility] Address [address] [place] [address] Care Team Providers Care Carton Packaging Machine Operator Name Role Phone Terrie Manning MD Primary Care Provider +1- [phone] Encounter Details Date Type Department Care Team (Late Contact Info) Description 11/13/2019 Orders Only [facility] SHEETER MACHINE OPERATOR - Medical [address] [address] Terrie Manning MD [address] [place] [address] Social History Tobacco Use Types [...] AM CDT Office Visit [facility] SHEETER MACHINE OPERATOR - [facility] [address] [address] Terrie Manning MD [address] [facility] [address] [address] documented as of this encounter Visit Diagnoses Not on filedocumented in this encounter Care Teams Carton Packaging Machine Operator Relationship Specialty Start Date End Date Terrie Manning MD PCP - General Obstetrics and Gynecology 05/27/13 documented as of this encounter
--- OUTSIDE RECORDS SUMMARY | 2024-05-27 15:52 | XMS_ITS | Encounter Summary ---
Author Organization [facility] Address [address] [place] [address] Care Team Providers Care Buncher Machine Name Role Phone Terrie Baca MD Primary Care Provider +1- [phone] Reason for Visit * Reason Comments Routine Visit Encounter Details Date Type Department Care Team (Late st Contact Info) Description 01/01/2020 11:00 AM CDT visit [facility] SLIP BOX CHANGER - Medical [address] [address] Terrie Baca MD [address] [place], [place] [address] [address] Trisomy 18 in child of [...] CDT Office Visit [facility] SLIP BOX CHANGER - [facility] [address] [address] [address] 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
--- OUTSIDE RECORDS SUMMARY | 2024-05-27 15:52 | XMS_ITS | Encounter Summary ---
Author Organization [facility] Address [address] [place] [address] Care Team Providers Care Validation Technician Name Role Phone Terrie Manning MD Primary Care Provider +1- [phone] Reason for Visit * Reason Onset Date Comments Results 11/13/2019 Encounter Details Date Type Department Care Team (Late st Contact Info) Description 11/13/2019 Telephone [facility] CERTIFIED PEER SPECIALIST - Medical [address] [address] Terrie Manning MD [address] [place] [address] Results Social History Tobacco Use [...] Encounter - Hayley Matute LPN - 11/13/2019 2:22 PM CDT Patient [...] VM picked up. Patient was sent a [employer] message and will attempt to contact patient [...] Office Visit [facility] CERTIFIED PEER SPECIALIST - [facility] [address] [address] [address] Terrie Manning MD [address] [facility] [address] [place] [address] documented as of this encounter Visit Diagnoses Not on filedocumented in this encounter Care Teams Validation Technician Relationship Specialty Start Date End Date Terrie Manning MD PCP - General Obstetrics and Gynecology 05/27/13 documented as of this encounter
--- OUTSIDE RECORDS SUMMARY | 2024-05-27 15:52 | XMS_ITS | Encounter Summary ---
Author Organization [employer] Address [address] [place] [address] Care Team Providers Care Train Operations Manager Name Role Phone Terrie Manning MD Primary Care Provider +1- [phone] Reason for Visit * Auth/Cert Specialty Diagnoses / Procedures Referred By Contac t [facility] [address] [facility], [place] [address] Referral ID Status Reason Start Date Expiration Date Visits Re quested Visits Authorized [id number] 1 1 Encounter Details Date Type Department Care Team (Latest Contact Info) Description 11/13/2019 11:30 AM CDT - 11/13/2019 11:59 PM CDT Hospital Encounter [facility] Laboratory Services Medical [place] [address] [facility], [place] [address] Terrie Manning MD [address] [address] Discharge Disposition: Home or Self [...] AM CDT Office Visit [facility] HOME HEALTH CARE PROVIDER - Medical [address] [address] Terrie Manning MD [address] [place] [address] documented as of this encounter Procedures [...] PROGESTERONE 14.10 ng/mL 11/13/2019 12:36 PM CDT [facility] LABORATORY [facility] Blood Venipuncture / Unknown 11/13/2019 11:33 AM CDT 11/13/2019 11:41 AM CDT [facility] - 11/13/2019 12:36 PM CDT Reference Ranges: Healthy women Follicular phase 0.06 - 0.90 ng/mL Ovulation phase ??0.12 - 12.0 ng/mL Luteal phase ? 1.83 - 23.9 ng/mL Postmenopause ?? <0.50 ng/mL Healthy women 1st trimester 11.0 - 44.3 ng/mL 2nd trimester 25.4 - 83.3 ng/mL 3rd trimester 58.7 - 214 ng/mL Terrie Manning MD CHEMISTRY ORDERABL ES [facility]# [id number] [address] [place] [address] * (ABNORMAL) HCG QUANTITATIVE, BLOOD (11/13/2019 11:33 AM CDT) HCG QUANT, BLOOD 6,383.0(H) <5.0 mIU/mL 11/13/2019 12:40 PM CDT [facility] Blood Venipuncture / Unknown 11/13/2019 11:33 AM CDT 11/13/2019 11:41 AM CDT [facility] - 11/13/2019 12:40 PM CDT Result of 5 - 25 mIU/mL is indeterminant for , repeat of test recommended in 48 hours. Reference Range: Gestational Age ? HCG Concentration 3 ??Weeks ?5.8 - 71.2 ? mIU/mL 4 ??Weeks ?9.5 - 750 ?mIU/mL 5 ??Weeks ?217 - 7974 ? mIU/mL 6 ??Weeks ?158 - 31,795 [...] MD CHEMISTRY ORDERABL ES Performing Organization Address [facility] Co de Phone Number [facility]# [id number] [address] [place] [address] documented in this encounter Visit Diagnoses Diagnosis Encounter for confirmation of test result with physical examination examination or test, unconfirmed documented in this encounter Care Teams Train Operations Manager Relationship Specialty Start Date End Date Terrie Manning MD PCP - General Obstetrics and Gynecology 05/27/13 documented as of this encounter
--- OUTSIDE RECORDS SUMMARY | 2024-05-27 15:52 | XMS_ITS | Encounter Summary ---
Author Organization [facility] Address [address] [place] [address] Care Team Providers Care Cardboard Inserter Name Role Phone Terrie Manning MD Primary Care Provider +1- [phone] Reason for Visit * Reason Onset Date Comments Medication Refill 04/03/2019 Encounter Details Date Type Department Care Team (Late st Contact Info) Description 04/03/[address] [facility] CONSULTING SYSTEMS ENGINEER - Medical [address] [address] Terrie Manning MD [address] [place] [address] Anxiety state (Primary Dx) Social [...] Office Visit [facility] CONSULTING SYSTEMS ENGINEER - [facility] [address] [address] [address] Terrie Manning MD [facility] [address] [place] [address] documented as of this encounter Visit Diagnoses Diagnosis Anxiety state- Primary Anxiety state, unspecified documented in this encounter Care Teams Cardboard Inserter Relationship Specialty Start Date End Date Terrie Manning MD PCP - General Obstetrics and Gynecology 05/27/13 documented as of this encounter
--- OUTSIDE RECORDS SUMMARY | 2024-05-27 15:52 | XMS_ITS | Encounter Summary ---
Author Organization [facility] Address [address] [place] [address] Care Team Providers Care Manager Medicare Marketing Name Role Phone Terrie Manning MD Primary Care Provider +1- [phone] Reason for Visit * Reason Comments Routine Visit Encounter Details Date Type Department Care Team (Late st Contact Info) Description 03/25/2020 11:30 AM CDT visit [facility] WAGON DRILLER - Medical [address] [address] Terrie Manning MD [address] [place] [address] 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 [...] CDT Office Visit [facility] WAGON DRILLER - Medical [facility] [address] [address] [address] Terrie Manning MD [facility] [address] [place] [address] documented as of this encounter Visit Diagnoses Diagnosis 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 , currently , second trimester- Primary Anxiety state Anxiety state, unspecified History of low vertical section Encounter for screening of mother Unspecified screening 24 weeks gestation of state, incidental documented in this encounter Care Teams Manager Medicare Marketing Relationship Specialty Start Date End Date Terrie Manning MD PCP - General Obstetrics and Gynecology 05/27/13 documented as of this encounter
--- OUTSIDE RECORDS SUMMARY | 2024-05-27 15:52 | XMS_ITS | Encounter Summary ---
Author Organization [facility] Address [address] [place] [address] Care Team Providers Care Material Stress Tester Name Role Phone Terrie Manning MD Primary Care Provider +1- [phone] Reason for Visit * Reason Onset Date Comments Medical Question/KDL 09/20/2019 Encounter Details Date Type Department Care Team (Late st Contact Info) Description 09/20/2019 Telephone [facility] SCAFFOLD SETTER - Medical [address] [address] Terrie Manning MD [facility] [address] [place] [address] Medical Question/KDL Social History Tobacco [...] Description 10/08/2024 9:45 AM CDT Office Visit [facility] SCAFFOLD SETTER - [facility] [address] [address] [address] Terrie Manning MD [address] [place] [address] documented as of this encounter Visit Diagnoses Not on filedocumented in this encounter Care Teams Material Stress Tester Relationship Specialty Start Date End Date Terrie Manning MD PCP - General Obstetrics and Gynecology 05/27/13 documented as of this encounter
--- OUTSIDE RECORDS SUMMARY | 2024-05-27 15:52 | XMS_ITS | Encounter Summary ---
Author Organization [facility] Address [address] [place] [address] Care Team Providers Care Layer Off Name Role Phone Terrie Manning MD Primary Care Provider +1- [phone] Reason for Visit * Reason Comments MATERNTY BENEFITS Encounter Details Date Type Department Care Team (Late st Contact Info) Description 12/18/2019 Chart Note [facility] BARLEY STEEPER - Medical [address] [address] Terrie Manning MD [address] [place] [address] MATERNTY BENEFITS Social History Tobacco [...] COVID-19? No / Unsure 06/10/2020 10:27 AM RESPIRATORY THERAPY AIDE documented as of this encounter Progress Notes [...] today. They have HSA and it's a [facility] policy. 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 They wanted to know about the genetic testing. I made them aware that the testing could apply to their 2020 benefits or it could get denied and [facility] will adjust it down to the self pay cost of $249. Per Lauren at [facility]. Refs # [id number]. EDC: 07/15/20. 01/22/20: Received a message from patient that she received a bill from [employer] for $749. It shows that her [facility] policy didn't pay anything on it so [...] in full today and paid the $821.28. IRATORY THERAPY AIDE documented in this encounter Plan of Treatment Upcoming Encounters Date Type Department Care Team (Late st Contact Info) Description 10/08/2024 9:45 AM CDT Office Visit [facility] BARLEY STEEPER - [address] [address] Terrie Manning MD [facility] [address] [address] documented as of this encounter Visit Diagnoses Not on filedocumented in this encounter Care Teams Layer Off Relationship Specialty Start Date End Date Terrie Manning MD PCP - General Obstetrics and Gynecology 05/27/13 documented as of this encounter
--- OUTSIDE RECORDS SUMMARY | 2024-05-27 15:52 | XMS_ITS | Encounter Summary ---
Author Organization [facility] Address [address] [place] [address] Care Team Providers Care Teacher Hearing Impaired Name Role Phone Terrie Baca MD Primary Care Provider +1- [phone] Reason for Visit * Reason Onset Date Comments Results 12/28/2019 Encounter Details Date Type Department Care Team (Late st Contact Info) Description 12/28/2019 Telephone [facility] VESSEL TRAFFIC OFFICER - Medical [address] [address] Terrie Baca MD [address] [place] [address] Results Social History Tobacco Use [...] AM CDT Office Visit [facility] VESSEL TRAFFIC OFFICER - [facility] [address] [place] [address] [address] Terrie Baca MD [address] [place] [address] documented as of this encounter Visit Diagnoses Not on filedocumented in this encounter Care Teams Teacher Hearing Impaired Relationship Specialty Start Date End Date Terrie Baca MD PCP - General Obstetrics and Gynecology 05/27/13 documented as of this encounter
--- OUTSIDE RECORDS SUMMARY | 2024-05-27 15:52 | XMS_ITS | Encounter Summary ---
Author Organization [facility] Address [address] [place] [address] Care Team Providers Care Senior Environmental Engineer Name Role Phone Terrie Baca MD Primary Care Provider +1- [phone] Reason for Visit * Reason Comments Routine Visit Encounter Details Date Type Department Care Team (Late st Contact Info) Description 12/18/2019 11:10 AM CDT visit [facility] WEATHERIZATION OPERATIONS MANAGER - Medical [address] [address] Terrie Baca MD [address] [place], [place] [address] [address] Trisomy 18 in child of [...] Description 10/08/2024 9:45 AM CDT Office Visit [facility] WEATHERIZATION OPERATIONS MANAGER - Medical [facility] [address] [address] [address] Terrie Baca MD [facility] [address] [place] [address] documented as of this encounter [...] ^1^/^1852 KHALIDA TRISOMY 13 RISK SCORE FRACTION <^1^/^54446 KHALIDA TRISOMY 13 RESULT TEXT Low Risk KHALIDA TRISOMY 13 RESULT COMMENTS None Specified KHALIDA TRISOMY 18 AGE-BASED RISK SCORE 0.17 KHALIDA TRISOMY 18 RISK SCORE <^0.01 KHALIDA TRISOMY 18 AGE-BASED RISK TEXT 582 (0.17%) KHALIDA TRISOMY 18 RISK SCORE TEXT <1/10,000 (<0.01%) KHALIDA TRISOMY 18 AGE-BASED RISK FRACTION ^1^/^582 KHALIDA TRISOMY 18 RISK SCORE FRACTION <^1^/^04342 KHALIDA TRISOMY 18 RESULT TEXT Low Risk KHALIDA TRISOMY 18 RESULT COMMENTS None Specified KHALIDA TRISOMY 21 AGE-BASED RISK SCORE 0.35 KHALIDA TRISOMY 21 RISK SCORE <^0.01 KHALIDA TRISOMY 21 AGE-BASED RISK TEXT (0.35%) KHALIDA TRISOMY 21 RISK SCORE TEXT <1/10,000 (<0.01%) KHALIDA TRISOMY 21 AGE-BASED RISK FRACTION ^1^/^287 KHALIDA TRISOMY 21 RISK SCORE FRACTION <^1^/^59741 KHALIDA TRISOMY 21 RESULT TEXT Low Risk KHALIDA TRISOMY 21 RESULT COMMENTS None Specified KHALIDA MONOSOMY X AGE-BASED RISK SCORE 0.39 KHALIDA MONOSOMY X RISK SCORE <^0.01 KHALIDA MONOSOMY X AGE-BASED RISK TEXT 255 (0.39%) KHALIDA MONOSOMY X RISK SCORE TEXT <1/10,000 (<0.01%) KHALIDA MONOSOMY X AGE-BASED RISK FRACTION ^1^/^255 KHALIDA MONOSOMY X RISK FRACTION <^1^/^80916 KHALIDA MONOSOMY X RESULT TEXT Low Risk [...] [Benita et al. The Human Genetics Conference. [facility]. October 29-2016]. However, ? some samples will [...] appropriate. The Panorama test was developed by [employer] a laboratory certified under the Clinical Laboratory Improvement Amendments (CLIA). A portion of the technical component of these tests may have been performed at [facility], [address] [place] [address] A, [address], [place] [address] (CLIA ID: [id number]). This test has not been cleared or approved by the U.S, Food and Drug Administration (FDA). ?? REFERENCES None Specified KHALIDA Comment:Please contact Yung leon for a PDF report APPROVALS None Specified KHALIDA Comment: Test performed by [employer]. [address] [place] [address] CLIA ID #[id number] Abbie Timmons Ph.D., [facility], Pari Mutuel Clerk CLIA Director [facility]: Moody Martins, Ph.D., [facility] CONTACTS None Specified KHALIDA Comment:IF THE ORDERING PROV IDER HAS QUESTIONS OR WISHES TO DISCUSS THE RESULTS, PLEASE CONTACT US AT [phone] #3. Ask for the NIPT genetic counselor health information specialist. Blood Terrie Baca MD CHEMISTRY ORDERABL ES [place] 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
--- OUTSIDE RECORDS SUMMARY | 2024-05-27 15:52 | XMS_ITS | Encounter Summary ---
Author Organization [facility] Address [address] [place] [address] Care Team Providers Care Plant Operator Name Role Phone Terrie Baca MD Primary Care Provider +1- [phone] Encounter Details Date Type Department Care Team (Latest Contact Info) Description 11/27/2019 2:30 PM CDT Ancillary Procedure [facility] CANDY MAKER - [facility] [address] [address] Encounter to determine viability of [...] Office Visit [facility] CANDY MAKER - Medical [place] [address] [facility] [address] [place] [address] Terrie Baca MD [address] [facility] [address] [address] documented as of this encounter Procedures Procedure [...] by u/s: 7w2d LEXIE (AUA):07/13/2020 FHR:138 ROSEMARIE:Yes [id number]; subclinical LMP LEXIE consistent with u/s today:Yes [...] by u/s: 7w2d LEXIE (AUA):07/13/2020 FHR:138 ROSEMARIE:Yes [id number]; subclinical LMP LEXIE consistent with u/s today:Yes Final LEXIE: 07/15/2020 Recommendation: Viable intra-uterine consistent with dates.Follow up in 4 weeks or sooner if clinically indicated. Terrie Baca MD Terrie Baca MD ORDERABLES documented in this encounter Visit Diagnoses Diagnosis Encounter to determine viability of , fetus 1 documented in this encounter Care Teams Plant Operator Relationship Specialty Start Date End Date Terrie Baca MD PCP - General Obstetrics and Gynecology 05/27/13 documented as of this encounter
--- OUTSIDE RECORDS SUMMARY | 2024-05-27 15:52 | XMS_ITS | Encounter Summary ---
Author Organization [facility] Address [address] [place] [address] Care Team Providers Care Mechanical Tech Name Role Phone Terrie Manning MD Primary Care Provider +1- [phone] Encounter Details Date Type Department Care Team (Latest Contact Info) Description 12/18/2019 10:30 AM CDT Ancillary Procedure [facility] HOUSETRAILER SERVICER - [facility] [address] [place] [phone] Family history of trisomy 18 Social History [...] CDT Office Visit [facility] HOUSETRAILER SERVICER - Medical [facility] [address] [place] [id number] [place] [phone] Terrie Manning MD [address] [facility] [address] [phone] documented as of this encounter Procedures Procedure [...] carrier documented in this encounter Care Teams Mechanical Tech Relationship Specialty Start Date End Date Terrie Manning MD PCP - General Obstetrics and Gynecology 05/27/13 documented as of this encounter
--- OUTSIDE RECORDS SUMMARY | 2024-05-27 15:52 | XMS_ITS | Encounter Summary ---
Author Organization [facility] Address [address] [place] [address] Care Team Providers Care Glycerin Operator Name Role Phone Terrie Baca MD Primary Care Provider +1- [phone] Reason for Visit * Reason Comments Routine Visit Encounter Details Date Type Department Care Team (Late st Contact Info) Description 01/29/2020 12:30 PM CDT visit [facility] MANAGER CLINIC - Medical [address] [address] Terrie Baca MD [address] [place] [address] 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 [...] AM CDT Office Visit [facility] MANAGER CLINIC - Medical [facility] [address] [address] [address] Terrie Baca MD [facility] S. 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
--- OUTSIDE RECORDS SUMMARY | 2024-05-27 15:52 | XMS_ITS | Encounter Summary ---
Author Organization [facility] Address [address] [place] [address] Care Team Providers Care Portable Pinch Riveter Name Role Phone Terrie Manning MD Primary Care Provider +1- [phone] Reason for Visit * Reason Onset Date Comments Results 04/22/2020 Encounter Details Date Type Department Care Team (Late st Contact Info) Description 04/22/2020 Telephone [facility] ENGRAVER ORNAMENTAL DESIGN - Medical [address] [address] Terrie Manning MD [address] [place] [address] Results Social History Tobacco Use [...] COVID-19? No / Unsure 04/22/2020 10:59 AM CONFIGURATION MANAGER documented as of this encounter Miscellaneous Notes * Telephone Encounter - Hayley Matute LPN - 04/22/2020 4:12 PM CST Have tried several times to call patient. No voicemail picks up. [facility] message sent and will attempt to reach patient later. IGURATION MANAGER * Telephone Encounter - Hayley Matute LPN - 04/22/2020 4:01 PM CST ----- Message from Terrie Manning MD sent at 04/22/2020 3:27 PM CONFIGURATION MANAGER ----- Please contact the patient and tell her the TSH and glucose are normal. She is starting to be anemic and needs more folic acid and B12 (not iron). Please ERx folkadie. IGURATION MANAGER documented in this encounter Plan of Treatment Upcoming Encounters Date Type Department Care Team (Late st Contact Info) Description 10/08/2024 9:45 AM CDT Office Visit [facility] ENGRAVER ORNAMENTAL DESIGN - [facility] [address] [address] [address] Terrie Manning MD [address] [facility] [address] [place] [address] documented as of this encounter Visit Diagnoses Not on filedocumented in this encounter Care Teams Portable Pinch Riveter Relationship Specialty Start Date End Date Terrie Manning MD PCP - General Obstetrics and Gynecology 05/27/13 documented as of this encounter
--- OUTSIDE RECORDS SUMMARY | 2024-05-27 15:53 | XMS_ITS | Encounter Summary ---
Author Organization [facility] Address [address] [place] [address] Care Team Providers Care Powerbuilder Name Role Phone Terrie Manning MD Primary Care Provider +1- [phone] Reason for Visit * Reason Onset Date Comments KDL\MA 03/11/2019 Encounter Details Date Type Department Care Team (Late st Contact Info) Description 03/11/2019 Telephone [facility] ORNAMENTAL BRONZE WORKER - Medical [address] [address] Terrei Manning MD [address] [place] [address] KDL\MA Social History Tobacco Use [...] Modules accepted: Orders * Telephone Encounter - Mariann Martin - 03/11/2019 4:26 PM CDT Pt called to have her Zoloft sent to [facility] in [facility]. RX sent to the pharmacy on file. Ab# * Telephone Encounter - Mariann Martin - 03/11/2019 3:27 PM CDT Called [facility] back and let them know they can use another generic PNV w/ DHA. Pharmacist aware and will get the RX ready. Ab# * Telephone Encounter - Karyn Macedo - 03/11/2019 12:21 PM CDT Eusebio from [facility] called and lm on vm that they are not able to find the PNV script and want to know ifthey can fill with a substitute. Please call them back at [phone]. cjk documented in this encounter Plan of Treatment Upcoming Encounters Date Type Department Care Team (Late st Contact Info) Description 10/08/2024 9:45 AM CDT Office Visit [facility] ORNAMENTAL BRONZE WORKER - Medical [facility] [address] [address] Terrie Manning MD [address] [facility] [address] [place] [address] documented as of this encounter Visit Diagnoses Not on filedocumented in this encounter Care Teams Powerbuilder Relationship Specialty Start Date End Date Terrie Manning MD PCP - General Obstetrics and Gynecology 05/27/13 documented as of this encounter
--- OUTSIDE RECORDS SUMMARY | 2024-05-27 15:53 | XMS_ITS | Encounter Summary ---
Author Organization [facility] Address [address] [place] [address] Care Team Providers Care Student Loan Counselor Name Role Phone Terrie Baca MD Primary Care Provider +1- [phone] Reason for Visit * Reason Comments Routine Visit Encounter Details Date Type Department Care Team (Late st Contact Info) Description 03/20/2019 10:20 AM CDT visit [facility] APPRENTICE JOCKEY - Medical [address] [address] Terrie Baca MD [facility] [address] [place] [address] Trisomy 18 of fetus in [...] CDT Office Visit [facility] APPRENTICE JOCKEY - [facility] [address] [place] [address] Terrie Baca MD [address] 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
--- OUTSIDE RECORDS SUMMARY | 2024-05-27 15:53 | XMS_ITS | Encounter Summary ---
Author Organization [facility] Address [address] [place] [address] Care Team Providers Care Bander Name Role Phone Terrie Manning MD Primary Care Provider +1- [phone] Reason for Visit * Reason Onset Date Comments Procedure 05/27/2013 Encounter Details Date Type Department Care Team (Late st Contact Info) Description 05/27/[address] [facility] Non [facility] GI Procedure [address] [place] [phone] Xavi Ferrera MD NO ADDRESS ON FILE [...] and Time: 06/06/2013 @ 10:00am Location: [facility] (PT NEEDS ON WINTER BREAK FOR WORK) Prep Given: MIRALAX Pre-cert Required? NO Patient Transport: SPOUSE OR MOTHER (Friend/Family Member/Transport Service/Undecided) Anesthesia Consult Requested? no PCP: Terrie Manning MD Referring Provider: (If different than PCP) Do any of the following factors below apply to this patient? ELABORATE POSITIVE ANSWERS WITH DETAIL (who, what, when, where) Has patient previously been seen by a [facility] shrinker in an inpatient or outpatientsetting? (If yes please note ) yes; [facility] OFFICE Previous Endoscopy (Colon, EGD, ERCP EUS): [...] No current facility-administered medications for this visit. RANCE ACCOUNT EXECUTIVE documented in this encounter Plan of Treatment Upcoming Encounters Date Type Department Care Team (Late st Contact Info) Description 10/08/2024 9:45 AM CDT Office Visit [facility] DRESSAGE JUDGE - Medical [facility] [address] [place] [address] [address] Terrie Manning MD [address] [place] [address] documented as of this encounter Visit Diagnoses Not on filedocumented in this encounter Care Teams Bander Relationship Specialty Start Date End Date Terrie Manning MD PCP - General Obstetrics and Gynecology 05/27/13 documented as of this encounter
--- OUTSIDE RECORDS SUMMARY | 2024-05-27 15:53 | XMS_ITS | Encounter Summary ---
Author Organization [facility] Address [address] [place] [address] Care Team Providers Care Certified Pediatric Nurse Practitioner Name Role Phone Terrie Manning MD Primary Care Provider +1- [phone] Encounter Details Date Type Department Care Team (Latest Contact Info) Description 08/11/2016 3:44 PM BESSEMER BOTTOM MAKER - 08/11/2016 7:15 PM [facility] Hospital Encounter [facility] S [facility] [address] [place] [address] Dustin Bill MD [address] [facility] [address] [address] Discharge Disposition: Home or Self [...] Comments Blood Pressure 113/64 08/11/2016 6:44 PM BESSEMER BOTTOM MAKER Pulse 110 08/11/2016 6:44 PM BESSEMER BOTTOM MAKER Temperature 36.2 ??C (97.2 ??F) 08/11/2016 6:44 PM CS T Respiratory Rate 16 08/11/2016 6:44 PM BESSEMER BOTTOM MAKER Oxygen Saturation 99% 08/11/2016 6:44 PM BESSEMER BOTTOM MAKER Inhaled Oxygen Concentration - - Weight 68 kg (150 lb) 08/11/2016 4:00 PM BESSEMER BOTTOM MAKER Height - - Body Mass Index 20.92 08/09/2016 6:31 AM BESSEMER BOTTOM MAKER documented in this encounter Discharge Instructions * Discharge Instructions* Jackelyn Alvarez RN - 08/11/2016 5:27 PM BESSEMER BOTTOM MAKER SAFETY For the next 24 hours, you [...] or come to the Emergency Room at [facility] ([phone]) or the nearest Emergency Room. In an emergency, Call 911. EMER BOTTOM MAKER documented in this encounter Medications at Time of Discharge Medication Sig Dispensed Refills Start Date End Date HYDROcodone-acetaminoph en (NORCO) 5-325 mg tablet Take 1 Tablet by mouth every 4 hours as needed for Pain, Moderate. Max Daily Amount: 6 Tablets 15 Tablet 08/11/2016 08/25/2017 progesterone micronized (PROMETRIUM) 100 mg Capsule Take by mouth daily. 018 Vit 31-Vgrx-KX-DSS (ADVANCED ) 90-1-50 mg Tablet Take 1 Tablet by mouth daily. 03/06/2019 documented as of this encounter Progress Notes * Shameka Yan RN - 08/11/2016 5:45 PM CST Offered to leave message regarding patient's loss with Hattie Thompson of the [employer] program. Pt gave permission and message was left with Hattie to request follow up. EMER BOTTOM MAKER documented in this encounter H&P Notes * [...] IV antibiotic prophylaxis with Ancef. Suction D&C/hysteroscopy EMER BOTTOM MAKER documented in this encounter OR Notes * Operative Report - Dustin Bill MD - 08/12/2016 3:25 AM CST [place], [place] [address] Operative Report CSN: [id number] DATE OF SERVICE: 08/11/2016 SURGEON Dustin Bill [...] she does not require RhoGAM. GLJ:MEDQ DID: [id number] Dictated by: Dustin Bill MD * Hilda-OP [...] pain/comfort utilizing verbal/nonverbal pain scales; assess culturalor yarsanism indicators attached to pain; administer pain medications as prescribed; utilize non-pharmacologic pain control and comfort measures Expected Outcome: Patient demonstrates and reports adequate pain control Outcome Met: States pain is at a tolerable level. EMER BOTTOM MAKER * Operative Report - Dustin Bill MD - 08/11/2016 5:00 PM CST Brief Postoperative Note Angela Alarcon [id number] Pre-operative Diagnosis: Incomplete Post-operative Diagnosis: Same Procedure/Anesthesia: Procedure(s) and Anesthesia Type: * HYSTEROSCOPY WITH DILATATION AND CURETTAGE SUCTION - General Surgeons/Assistants: Surgeon(s) and Role: * Dustin Bill MD - Primary Specimens Removed: products of conception Estimated Blood Loss: 250 cc. 200 in the vagina at the start of the procedure. 50 cc during the procedure. Complications:none Dustin Bill MD EMER BOTTOM MAKER documented in this encounter Miscellaneous Notes * Care Plan - Shameka Yan RN - 08/11/2016 5:20 PM CST Potential for pain related to surgical/procedural intervention Interventions: Assess level of pain/comfort utilizing verbal/nonverbal pain scales; assess culturalor yarsanism indicators attached to pain; administer pain medications as prescribed; utilize non-pharmacologic pain control and comfort measures Expected Outcome: Patient demonstrates and reports adequate pain control Outcome Met: prn meds available. EMER BOTTOM MAKER * Care Plan - Dustin Bill MD [...] as tolerated. Call the exchange for any concerns--[phone] Call the office for an appt in 2-3 weeks [phone] EMER BOTTOM MAKER * Care Plan - Delicia Denton RN [...] Patient/Family verbalizes understanding of pre op procedures. EMER BOTTOM MAKER documented in this encounter Plan of Treatment Upcoming Encounters Date Type Department Care Team (Late st Contact Info) Description 10/08/2024 9:45 AM CDT Office Visit [facility] BOLT LOADER - Medical [facility] [address] [address] Terrie Manning MD [address] [facility] [address] [place] [address] documented as of this encounter Procedures Procedure Name Priority Date/Time Associated Diagnosis Comments TELEMETRY REPORT 08/12/2016 5:56 PM BESSEMER BOTTOM MAKER PATHOLOGY Pathology 08/11/2016 4:33 PM BESSEMER BOTTOM MAKER CBC WITHOUT DIFFERENTIAL Stat 08/11/2016 4:03 PM BESSEMER BOTTOM MAKER HYSTEROSCOPY WITH DILATATION AND CURETTAGE SUCTION 08/11/2016 3:20 PM BESSEMER BOTTOM MAKER Case Notes COMING FROM OFFICE documented in this encounter Results * TELEMETRY REPORT (08/12/2016 5:56 PM BESSEMER BOTTOM MAKER) Provider Scanning ECG ORDERABLES * PATHOLOGY (08/11/2016 4:33 PM BESSEMER BOTTOM MAKER) CASE REPORT Surgical Pathology Report ? Case: [id number] ? Authorizing Provider: ??Dustin Bill MD ?Collected: ? 08/11/2016 04:33 PM ? Ordering Location: ? [facility] ?Received: ?08/12/2016 06:42 AM ? Operating Room ? Pathologist: ? Monica Calvillo MD ? Specimen: ?Products Of Conception ? 08/15/2016 5:44 PM [facility] [employer] SERVICES - [facility] FINAL DIAGNOSIS Products of conception, hysteroscopy with dilatation and curettage: - Implantation site. - No chorionic villi identified. 08/15/2016 5:44 PM [facility] IMEN DESCRIPTION Products of conception. 08/15/2016 5:44 PM [facility] [employer] [facility] OPERATIVE PROCEDURE Hysteroscopy with dilatation and curettage suction. 08/15/2016 5:44 PM [facility] [employer] [facility] CLINICAL DIAGNOSIS Not provided. 08/15/2016 5:44 PM [facility] [employer] [facility] GROSS DESCRIPTION The specimen is received in a single container labeled Angela Alarcon, products of conception and consists of two suction traps containing a 5 x 4.8 x 1.5-cm aggregate of red tissue. No hydropic villi are identified. No parts are found. The entire specimen is submitted in cassettes A1 to A5. ALANNA/ale 08/15/2016 5:44 PM CDT [facility] MICROSCOPIC DESCRIPTION The slides are labeled [id number] and Angela Katiejaron. Sections of the products of conception reveal multiple fragments of implantation site and decidua. No chorionic villi are present. Correlation with the quantitative beta hCG is recommended. Slides are shown to Dr. Macdonald, and she concurs with the diagnosis. 08/15/2016 5:44 PM CDT [facility] COMMENT Special stain and/or immunohistochemical results are interpreted with controls that demonstrate appropriate staining reactions. Note on use of immunocytochemistry reagents: This test was developed and its performance characteristic determined by [facility], Department of Laboratory Medicine. It has not [...] WF, WB and WH are performed by [address], [address]. All other case types are performed by [address], [address]. 08/15/2016 5:44 PM T [facility] Tissue (Products Of Conception) 08/11/2016 4:33 PM BESSEMER BOTTOM MAKER 08/12/2016 6:42 AM BESSEMER BOTTOM MAKER Dustin Bill MD PATHOLOGY/CYTOLOGY O LUISERAAGA [facility] CLIA# [id number] [address] [place] [address] [place] [id number] * (ABNORMAL) CBC WITHOUT DIFFERENTIAL (08/11/2016 4:03 PM BESSEMER BOTTOM MAKER) WBC 12.3(H) 4.0 - 9.8 K/uL 08/11/2016 4:19 PM BESSEMER BOTTOM MAKER [facility] RBC 3.18(L) 3.90 - 4.90 M/uL 08/11/2016 4:19 PM [facility] . [facility] HEMOGLOBIN 9.9(L) 11.8 - 14.8 g/dL 08/11/2016 4:19 PM [facility] HEMATOCRIT 29.6(L) 35.5 - 44.0 % 08/11/2016 4:19 PM [facility] . [facility] MCV 93.1 82.0 - 99.0 fL 08/11/2016 4:19 PM [facility] . [facility] MCH 31.1 27.2 - 32.6 pg 08/11/2016 4:19 PM [facility] . [facility] MCHC 33.4 31.5 - 35.5 g/dL 08/11/2016 4:19 PM [facility] PLATELETS 398(H) 140 - 350 K/uL 08/11/2016 4:19 PM [facility]. [facility] MPV 9.4 9.3 - 12.4 fL 08/11/2016 4:19 PM [facility]. [facility] RDW 12.3 11.5 - 14.5 % 08/11/2016 4:19 PM [facility] [employer] [facility] RDW-STDEV 42.4 37.1 - 48.7 fL 08/11/2016 4:19 PM [facility] [employer] [facility] Blood Venipuncture / Unknown 08/11/2016 4:03 PM BESSEMER BOTTOM MAKER 08/11/2016 4:09 PM [facility] Dustin Bill MD HEMATOLOGY ORDERABLE S [facility] CLIA# [id number] [address] [place] [address] documented in this encounter Visit Diagnoses Not [...] admin instructions), Routine Given 08/11/2016 6:06 PM BESSEMER BOTTOM MAKER 1 Tablet lactated ringers solution IV, at 125 mL/hr, POST-PROCEDURE CONTINUOUS, Starting on Shaila 08/11/16 at 1615, Until Shaila 08/11/16 at 2122, Routine, PACU New Bag 08/11/2016 4:12 PM BESSEMER BOTTOM MAKER 125 mL/hr morphine 4 mg/mL injection 2 [...] Recently Administered Medications Times are shown in BESSEMER BOTTOM MAKER. Scheduled Medication Order 08/09/2016 08/10/2016 08/11/2016 ceFAZolin [...] Pantoja RN)1919 (Stopped - Provider: Jackelyn Alvarez, TATILA) PRN Medication Order 08/09/2016 08/10/2016 08/11/2016 bupivacaine-EPINEPHrine [...] PACU documented in this encounter Care Teams Certified Pediatric Nurse Practitioner Relationship Specialty Start Date End Date Terrie Manning MD PCP - General Obstetrics and Gynecology 05/27/13 documented as of this encounter
--- OUTSIDE RECORDS SUMMARY | 2024-05-27 15:53 | XMS_ITS | Encounter Summary ---
Author Organization [facility] Address [address] [place] [address] Care Team Providers Care Shake Packer Name Role Phone Terrie Manning MD Primary Care Provider +1- [phone] Reason for Visit * Eval and Treat (Routine) - Closed Specialty Diagnoses / Procedures Referred By Cheikh pichardo Referred To Contact Genetics Diagnoses Suspected damage to fetus from disease in mother, antepartum condition, single or unspecified fetus Mj Ha DO NO ADDRESS ON FILE Referral ID Status Reason Start Date Expiration Date Visits Requested Visits Authorized [id number] Closed Performing Department To Schedule (STL) 12/27/2018 12/28/2019 1 1 Encounter Details Date Type Department Care Team (Latest Contact Info) Description 12/27/2018 7:30 AM CDT - 12/27/2018 11:59 PM CDT Hospital Encounter [facility] Genetic Counseling Maternal [address] [place] [address] Mj Ha DO NO ADDRESS ON FILE Francisco J Cook CGC [address] [facility] [address] [place] [address] Discharge Disposition: Home or Self [...] Dispensed Refills Start Date End Date Vit 23-Ajds-KI-DSS (ADVANCED ) 90-1-50 mg Tablet Take 1 [...] AM CDT Office Visit [facility] ASSOCIATE STORE LEADER - Medical [address] [address] Terrie Manning MD [address] [facility] [address] [place] [address] Scheduled Referrals Name Type Priority Associated Diagnoses Orde r Schedule AMB REFERRAL TO GENETIC COUNSELING Outpatient Referral Routine Suspected damage to fetus from disease in mother, antepartum condition, single or unspecified fetus Ordered: 12/27/2018 documented as of this encounter Visit Diagnoses Not on filedocumented in this encounter Care Teams Shake Packer Relationship Specialty Start Date End Date Terrie Manning MD PCP - General Obstetrics and Gynecology 05/27/13 documented as of this encounter
--- OUTSIDE RECORDS SUMMARY | 2024-05-27 15:53 | XMS_ITS | Encounter Summary ---
Author Organization [facility] Address [address] [place] [address] Care Team Providers Care Personnel Generalist Manager Name Role Phone Unavailable Primary Care Provider Unavailabl e Encounter Details Date Type Department Care Team (Latest Contact Info) Description 06/22/2012 11:35 AM PLANNING AND ANALYSIS MANAGER - 06/22/2012 11:59 PM [facility] Hospital Encounter [facility] Medical [place] [address] [facility] [address], [place] [address] Xavi Aquino MD NO ADDRESS [...] AM CDT Office Visit [facility] FUNERAL HOME DIRECTOR - Medical [facility] [address] [facility] [address] [place] [address] Terrie Manning MD [address] [facility] [address] [address] documented as of this encounter Visit Diagnoses Not on filedocumented in this encounter
--- OUTSIDE RECORDS SUMMARY | 2024-05-27 15:53 | XMS_ITS | Encounter Summary ---
Author Organization [facility] Address [address] [place] [address] Care Team Providers Care Hop Sorter Name Role Phone Terrie Manning MD Primary Care Provider +1- [phone] Encounter Details Date Type Department Care Team (Latest Contact Info) Description 08/20/2017 2:00 PM CDT - 08/20/2017 11:59 PM CDT Hospital Encounter [facility] OB Inductions and Procedures [address] [place] [address] Discharge Disposition: Home or Self Care Social [...] Capsule Take by mouth daily. 018 Vit 36-Tuvl-JW-DSS (ADVANCED ) 90-1-50 mg Tablet Take 1 Tablet by mouth daily. 03/06/2019 documented as of this encounter Plan of Treatment Upcoming Encounters Date Type Department Care Team (Late st Contact Info) Description 10/08/2024 9:45 AM CDT Office Visit [facility] WET PRIMER POWDER BLENDER - Medical [address] [address] Terrie Manning MD [address] [facility] [address] [place] [address] documented as of this encounter Visit Diagnoses Not on filedocumented in this encounter Care Teams Hop Sorter Relationship Specialty Start Date End Date Terrie Mnaning MD PCP - General Obstetrics and Gynecology 05/27/13 documented as of this encounter
--- OUTSIDE RECORDS SUMMARY | 2024-05-27 15:53 | XMS_ITS | Encounter Summary ---
Author Organization [facility] Address [address] [place] [address] Care Team Providers Care Postal Transportation Clerk Name Role Phone Bebeto Manning MD Primary Care Provider +1- [phone] Reason for Referral * Outpatient Services (Routine) - Closed Specialty Diagnoses / Procedures Referred By Contac t Referred To Contact Diagnoses Vaginal bleeding in , first trimester Procedures US OB LESS THAN 14 WKS SINGLE Pablo Castano MD NO ADDRESS ON FILE Referral ID Status Reason Start Date Expiration Date Visits Re quested Visits Authorized [id number] Closed 08/09/2016 09/09/2017 1 1 M WINDOW INSTALLER Reason for Visit * Outpatient Services (Routine) - Closed Specialty Diagnoses / Procedures Referred By Contac t Referred To Contact Diagnoses Vaginal bleeding in , first trimester Procedures US OB LESS THAN 14 WKS SINGLE Pablo Castano MD NO ADDRESS ON FILE Referral ID Status Reason Start Date Expiration Date Visits Re quested Visits Authorized [id number] Closed 08/09/2016 09/09/2017 1 1 Encounter Details Date Type Department Care Team (Latest Contact Info) Description 08/09/2016 3:44 PM STORM WINDOW INSTALLER - 08/09/2016 11:59 PM STORM WINDOW INSTALLER Hospital Encounter [facility] Maternal and Ground Floor S [facility] [address] [place] [address] [place] [address] Pablo Louis MD NO ADDRESS ON FILE [...] Capsule Take by mouth daily. 018 Vit 43-Dfop-GL-DSS (ADVANCED ) 90-1-50 mg Tablet Take 1 Tablet by mouth daily. 03/06/2019 dicyclomine (BENTYL) 10 mg capsuleIndications:Diarrh ea Take 1 Cap by mouth 2 times daily before meals. 60 Cap 2 06/12/2013 08/11/2016 documented as of this encounter Plan of Treatment Upcoming Encounters Date Type Department Care Team (Late st Contact Info) Description 10/08/2024 9:45 AM CDT Office Visit [facility] PLASTICS SPREADING MACHINE OPERATOR - Medical [address] [address] Bebeto Manning MD [facility] [address] [place] [address] documented as of this encounter Procedures Procedure Name Priority Date/Time Associated Diagnosis Comments US OB LESS THAN 14 WKS SINGLE GEST Routine 08/09/2016 4:35 PM STORM WINDOW INSTALLER Vaginal bleeding in , first trimester documented in this encounter Results * US OB LESS THAN 14 WKS SINGLE GEST (08/09/2016 4:35 PM STORM WINDOW INSTALLER) Anatomical Region Laterality Modality Pelvis Ultrasound 08/09/2016 4:05 PM STORM WINDOW INSTALLER Impressions 08/09/2016 5:50 PM STORM WINDOW INSTALLER IMPRESSION ----- Single intrauterine CRL consistent with stated dating and LEXIE of 03/16/2017 FHR noted Small subchorionic collection is noted measuring 8.6 x 4.3 x 6.5 mm The US findings were reviewed with the patient. Follow up between 11-13 weeks has been scheduled. Thank you for allowing us to participate in the care of your patient. Narrative 08/09/2016 5:50 PM STORM WINDOW INSTALLER 1st Trimester <10 weeks ----- Pat. Name: INESSA ALARCON Study Date: 08/09/2016 4:05pm Pat. NO: [id number] Referring ??MD: BEBETO MANNING MD Site: [facility] [employer]: Betzy Luna [facility] : 1985 Age: 30 ----- INDICATION ----- Bleeding < 20wks Maternal Mental Disorder ? 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 IVF technology CODING ----- Diagnosis ? O20.9: Hemorrhage in early , unspecified. ?O99.341: Other mental disorders complicating . ?O09.811: Supervision of resulting from assisted reprod tech. ?Z3A.08: Weeks Gestation of . Procedures ?56777: OB ABD <14 wks (1st trimester). ?57216: OB Transvaginal - Cervical length. HISTORY ----- [...] Pat. Name:Sonu ALARCON Date:08/09/2016 4:05pm Pat. NO: [id number] :BEBETO MANNING MD 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 O99.341: Other mental disorders complicatingpregnancy. O09.811: Supervision of resulting fromassisted reprod tech. Z3A.08: Weeks Gestation of . Procedures 61474: OB ABD <14 wks (1st trimester). 24521: OB Transvaginal - Cervical length. HISTORY ----- [...] trimester documented in this encounter Care Teams Postal Transportation Clerk Relationship Specialty Start Date End Date Bebeto Manning MD PCP - General Obstetrics and Gynecology 05/27/13 documented as of this encounter
--- OUTSIDE RECORDS SUMMARY | 2024-05-27 15:53 | XMS_ITS | Encounter Summary ---
Author Organization [facility] Address [address] [place] [address] Care Team Providers Care Smocker Name Role Phone Bebeto Manning MD Primary Care Provider +1- [phone] Reason for Referral * Radiology Services (Routine) - Closed Specialty Diagnoses / Procedures Referred By Contac t Referred To Contact Diagnoses Abnormal ultrasound Procedures US GUIDE AMNIOCENTESIS Mj Ha DO NO ADDRESS ON FILE Referral ID Status Reason Start Date Expiration Date V isits Requested Visits Authorized [id number] Closed [facility] 12/26/2018 01/26/2019 1 1 Reason for Visit * Radiology Services (Routine) - Closed Specialty Diagnoses / Procedures Referred By Cheikh pichardo Referred To Contact Diagnoses Abnormal ultrasound Procedures US GUIDE AMNIOCENTESIS Mj Ha DO NO ADDRESS ON FILE Referral ID Status Reason Start Date Expiration Date V isits Requested Visits Authorized [id number] Closed [facility] 12/26/2018 01/26/2019 1 1 Encounter Details Date Type Department Care Team (Latest Contact Info) Description 12/27/2018 7:35 AM CDT - 12/27/2018 11:59 PM CDT Hospital Encounter [facility] Maternal and Ground Floor [address] [place] [address] [place] [address] Mj Ha DO NO ADDRESS ON FILE [...] HAVE ANY QUESTIONS OR CONCERNS, PLEASE CONTACT [facility] AT [phone] OR YOUR OB DOCTOR???S OFFICE. * Attachments The following attachments cannot be sent through Care Everywhere. * : Amniocentesis (Citizen [place]) documented in this encounter Medications at Time of Discharge Medication Sig Dispensed Refills Start Date End Date Vit 96-Kqxc-BY-DSS (ADVANCED ) 90-1-50 mg Tablet Take 1 Tablet by mouth daily. 03/06/2019 documented as of this encounter Plan of Treatment Upcoming Encounters Date Type Department Care Team (Late st Contact Info) Description 10/08/2024 9:45 AM CDT Office Visit [facility] COMMUNITY HEALTH PROGRAM COORDINATOR - [facility] [address] [address] Bebeto Manning MD [facility] [facility] [address] [place] [address] documented as of this encounter [...] ALARCON Study Date: 12/27/2018 8:32am Pat. NO: [id number] Referring ??: BEBETO MANNING MD Site: [facility] Operations Mgr: Love Nance : 1985 Age: 33 ----- INDICATION ----- Known or Suspected anomaly ? Bilateral CP cyst, bilateral clubbed feet, Ptyalectasis, abnormal brain, ? abnormal heart Previous ? x1 CODING ----- Diagnosis ? O35.8XX0: Maternal care for suspected abnormality Unspecified Fetus ?O34.21: Maternal care for scar from previous delivery ?Z3A.22: Weeks Gestation of Procedures ?86259: Limited 1 or more - RAMSEY, FHR, position ?27664: Amniocentesis Diagnostic ?90715: guidance amnio (all) HISTORY ----- General History [...] Pat. Name:Darya ALARCONcintia Date:12/27/2018 8:32am Pat. NO: [id number] :BEBETO MANNING MD [facility]Love Nance :1985Age:33 ----- INDICATION ----- Known or Suspected anomaly Bilateral CP cyst,bilateral clubbed feet, Ptyalectasis, abnormal brain, abnormal heart Previous x1 CODING ----- Diagnosis O35.8XX0: Maternal care for suspected fetalabnormality Unspecified Fetus O34.21: Maternal care for scar from previouscesarean delivery Z3A.22: Weeks Gestation of Procedures 55082: Limited 1 or more - RAMSEY, FHR, position 90576: Amniocentesis Diagnostic 72089: US guidance amnio (all) HISTORY ----- General [...] structure documented in this encounter Care Teams Smocker Relationship Specialty Start Date End Date Bebeto Manning MD PCP - General Obstetrics and Gynecology 05/27/13 documented as of this encounter
--- OUTSIDE RECORDS SUMMARY | 2024-05-27 15:53 | XMS_ITS | Continuity of Care Document ---
Author Organization [facility] Address [address] [place] [address] Phone Care Team Providers Care Cylinder Handler Name Role Phone Unavailable Unavailable Unavailable Advance Directives Directive Yes / No Effective Date File Name No Information Encounters Encounter Description Practice Location Reason(s) For Visit Diagnoses Date Provider Providers Copied on Encounter [facility], [address] [facility], [place], [place], [id number], tel:[phone] [facility] OUT[facility]IENT No Information Aug-0 6-201 7 No Information Referring Provider: BEBETO ZAMUDIO, [address] [place], [address]. tel:[phone] Family History Family Member Type Diagnosis Age At Onset No Information Payers Payer name Insurance type Covered constitution party ID Authorizedward forbes(s) JEFFREY PPO [id number] Social History Type Description Quantity Date Captured Comments Sex Female Smoking Status No Information Chief Complaint And Reason For Visit No Information History Of Present Illness Encounter Date Complaint History Of Prese nt Illness No Information Instructions Date Instruction Additional Infor mation No Information Assessments Type Assessment Date No Information
--- OUTSIDE RECORDS SUMMARY | 2024-05-27 15:53 | XMS_ITS | Encounter Summary ---
Author Organization [facility] Address [address] [place] [address] Care Team Providers Care Wood Processing Worker Name Role Phone Bebeto Manning MD Primary Care Provider [phone]- [phone] Reason for Referral * Radiology Services (Routine) - Closed Specialty Diagnoses / Procedures Referred By Cheikh pichardo Referred To Contact Diagnoses Encounter for screening for malformation Abnormal ultrasonic finding on screening of mother Procedures US OB DETAIL SINGLE Bebeto Barrios MD [address] [address] Referral ID Status Reason Start Date Expiration Date V isits Requested Visits Authorized [id number] Closed STL CTS 12/26/2018 01/26/2019 1 1 Reason for Visit * Radiology Services (Routine) - Closed Specialty Diagnoses / Procedures Referred By Cheikh pichardo Referred To Contact Diagnoses Encounter for screening for malformation Abnormal ultrasonic finding on screening of mother Procedures US OB DETAIL Bebeto Spangler MD [address] [address] Referral ID Status Reason Start Date Expiration Date V isits Requested Visits Authorized [id number] Closed STL CTS 12/26/2018 01/26/2019 1 1 Encounter Details Date Type Department Care Team (Latest Contact Info) Description 12/26/2018 2:45 PM CDT - 12/26/2018 11:59 PM CDT Hospital Encounter [facility] Maternal and Ground Floor [facility] [address] [place] [phone] Bebeto Manning MD [address] [facility] [address] [place] [address] Discharge Disposition: Home or Self [...] Dispensed Refills Start Date End Date Vit 85-Xswn-FU-DSS (ADVANCED ) 90-1-50 mg Tablet Take 1 Tablet by mouth daily. 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 NO: [id number] Referring ??MD: BEBETO MANNING MD Site: [facility] Dye Stand Loader: Judie Scales : 1985 Age: 33 ----- INDICATION ----- Known or Suspected anomaly Previous CODING ----- Diagnosis ? O35.8XX0: Maternal care for suspected abnormality Unspecified Fetus ?Z3A.22: Weeks Gestation of Procedures ?36759: OB with Detail (Comprehensive) HISTORY ----- OB [...] lb 15 ?oz EFW by ? Hadlock (DPW-NP-GQ-FL) Head / Face / Neck Biometry: Cephalic index ?0.83 ?91% ? Nicolaides Shipsmith ?6.0 ?mm ? CM ?5.7 ?mm ? [...] and date of were verified by the network applications specialist before the exam FOLLOW-UP ----- As noted [...] Pat. Name:Sonu ALARCON Date:12/26/2018 2:50pm Pat. NO: [id number] :BEBETO MANNING [facility] Scal[facility] :1985Age:33 ----- INDICATION ----- Known or Suspected anomaly Previous CODING ----- Diagnosis O35.8XX0: Maternal care for suspected fetalabnormality Unspecified Fetus Z3A.22: Weeks Gestation of Procedures 71771: OB with Detail (Comprehensive) HISTORY ----- OB [...] 0 lb 15 oz EFW by Hadlock (CWL-FA-UV-FL) Head / Face / Neck Biometry: Cephalic index 0.8391% Nicomnides Shipsmith 6.0 mm CM 5.7 mm53% Nicolaides Outer [...] and date of were verified by the network applications specialist beforethe exam FOLLOW-UP ----- As noted above [...] showed 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
--- OUTSIDE RECORDS SUMMARY | 2024-05-27 15:53 | XMS_ITS | Encounter Summary ---
Author Organization [facility] Address [address] [place] [address] Care Team Providers Care Report Clerk Name Role Phone Terrie Manning MD Primary Care Provider [phone]- [phone] Reason for Referral * Eval and Treat (Routine) - Closed Specialty Diagnoses / Procedures Referred By Cheikh pichardo Referred To Contact Genetics Diagnoses Suspected damage to fetus from disease in mother, antepartum condition, single or unspecified fetus Mj Ha DO NO ADDRESS ON FILE Referral ID Status Reason Start Date Expiration Date Visits Requested Visits Authorized [id number] Closed Performing Department To Schedule (STL) 12/27/2018 12/28/2019 1 1 Encounter Details Date Type Department Care Team (Late st Contact Info) Description 12/27/2018 Orders Only [facility] Genetic Counseling Maternal [address] [place] [phone] Mj Ha DO NO ADDRESS ON FILE [...] CDT Office Visit [facility] GERIATRIC CASE MANAGER - Medical [place] [address] [address] Terrie Manning MD [facility] [address] [place] [address] Scheduled Referrals Name Type Priority [...] Primary documented in this encounter Care Teams Report Clerk Relationship Specialty Start Date End Date Terrie Manning MD PCP - General Obstetrics and Gynecology 05/27/13 documented as of this encounter
--- OUTSIDE RECORDS SUMMARY | 2024-05-27 15:53 | XMS_ITS | Encounter Summary ---
Author Organization [facility] Address [address] [place] [address] Care Team Providers Care Industrial Paramedic Name Role Phone Terrie Manning MD Primary Care Provider +1- [phone] Reason for Visit * Reason Onset Date Comments Results 01/02/2019 FISH Analysis Encounter Details Date Type Department Care Team (Late st Contact Info) Description 01/02/2019 Telephone [facility] Genetic Counseling Maternal [address] [place] [address] Francisco J Cook CGC [address] [facility] [address] [place] [address] Results (FISH Analysis) Social History [...] CDT Office Visit [facility] DOG LICENSE OFFICER SUPERVISOR - [address] [address] Terrie Manning MD [facility] [address] [address] documented as of this encounter Visit Diagnoses Not on filedocumented in this encounter Care Teams Industrial Paramedic Relationship Specialty Start Date End Date Terrie Manning MD PCP - General Obstetrics and Gynecology 05/27/13 documented as of this encounter
--- OUTSIDE RECORDS SUMMARY | 2024-05-27 15:53 | XMS_ITS | Encounter Summary ---
Author Organization [facility] Address [address] [place] [address] Care Team Providers Care Consulting Solution Director Name Role Phone Unavailable Primary Care Provider Unavailabl e Reason for Visit * Reason Comments Abdominal Pain Encounter Details Date Type Department Care Team (Latest Contact Info) Description 06/22/2012 11:00 AM MIXER SLAGMAN Office Visit [facility] [place] [id number] [address] Xavi Aquino MD NO ADDRESS [...] Comments Blood Pressure 96/54 06/22/2012 11:00 AM MIXER SLAGMAN Pulse 84 06/22/2012 11:00 AM MIXER SLAGMAN Temperature - - Respiratory Rate - - Oxygen Saturation 99% 06/22/2012 11: 00 AM MIXER SLAGMAN Inhaled Oxygen Concentration - - Weight 64.3 kg (141 lb 12.8 oz) 013 11:00 AM MIXER SLAGMAN Height 180.3 cm (5' 11 ) 06/22/2012 11: 00 AM MIXER SLAGMAN Body Mass Index 19.78 06/22/2012 11:00 AM MIXER SLAGMAN documented in this encounter Progress Notes * [...] that she presented to an ER in [facility] for evaluation. There she believes she had [...] lactose free, sweetener free. May need colonoscopy. R SLAGMAN documented in this encounter Plan of Treatment Upcoming Encounters Date Type Department Care Team (Late st Contact Info) Description 10/08/2024 9:45 AM CDT Office Visit [facility] DEMAND INSPECTOR - [facility] [address] [address] Terrie Manning MD [address] [facility] [address] [address] documented as of this encounter Procedures Procedure Name Priority Date/Time Associated Diagnosis Comments HELICOBACTER PYLORI AB IGG/IGM/IGA Routine 06/26/2012 6:00 PM MIXER SLAGMAN TRANSGLUTAMINASE AB IGG/IGA Routine 06/26/2012 6:00 PM MIXER SLAGMAN CELIAC DISEASE ANTIBODIES Routine 06/26/2012 6:00 PM MIXER SLAGMAN CBC WITH DIFFERENTIAL Routine 06/26/2012 6:00 PM MIXER SLAGMAN HEPATIC FUNCTION PANEL Routine 3 6:00 PM MIXER SLAGMAN documented in this encounter Results * CBC WITH DIFFERENTIAL (06/26/2012 6:00 PM MIXER SLAGMAN) WBC 6.0 3.8 - 10.8 Thousand/u L [facility] RBC 4.12 3.80 - 5.10 Million/uL [facility] HEMOGLOBIN 12.3 11.7 - 15.5 g/dL [facility] HEMATOCRIT 38.0 35.0 - 45.0 % [facility] MCV 92.3 80.0 - 100.0 fL [facility] MCH 29.9 27.0 - 33.0 pg [facility] MCHC 32.3 32.0 - 36.0 g/dL [facility] RDW 13.4 11.0 - 15.0 % [facility] PLATELETS 372 140 - 400 Thousand/u L [facility] NEUTROPHIL ABSOLUTE 2,742 1,500 [...] INCORRECT, PLEASE CONTACT CLIENT SERVICES. PHONE NUMBER: [phone] Test Performed at: [facility] [place] [address] [place], [place] ??[address] SERGIO LEAHY DO,MPH Xavi Aquino MD HEMATOLOGY ORDERABLE S Performing Organization Address [facility] Phone Number INTERFACE SYSTEM Refer to clinic/hospital department [facility] [address] [place] [address] * TRANSGLUTAMINASE AB IGG/IGA (06/26/2012 6:00 PM MIXER SLAGMAN) TRANSGLUTAMINASE IGG AB 1 <6 U/mL [facility] Comment: ? Value ?? Interpretation ?<6 U/mL: No Antibody Detected ? >or=6 U/mL: Antibody Detected TRANSGLUTAMINASE IGA AB 1 <4 U/mL [facility] Comment: ? Value ?? Interpretation ?<4 U/mL: No Antibody Detected ? >or=4 U/mL: Antibody Detected Test Performed at: [facility]/[address] ?? SUE WEN MD Xavi Aquino MD CHEMISTRY ORDERABLES Performing Organization Address [facility] Phone Number INTERFACE SYSTEM Refer to clinic/hospital department [facility] [address] [place] [address] * (ABNORMAL) HEPATIC FUNCTION PANEL (06/26/2012 6:00 PM MIXER SLAGMAN) TOTAL PROTEIN 6.9 6.1 - 8.1 g/dL [facility] ALBUMIN 4.8 3.6 - [...] DIAGNOSTICS . [facility] Comment: Test Performed at: [facility] [place] [address] [place], [place] ??[address] SERGIO LEAHY DO,MPH Xavi Aquino MD CHEMISTRY ORDERABLES Performing Organization Address City/State/[facility] Co de Phone Number INTERFACE SYSTEM Refer to clinic/hospital department [facility] [address] [place] [address] * CELIAC DISEASE ANTIBODIES (06/26/2012 6:00 PM MIXER SLAGMAN) TRANSGLUTAMINASE IGA AB 1 <4 U/mL [facility] Comment: ? Value ?? Interpretation ?<4 U/mL: No Antibody Detected ? >or=4 U/mL: Antibody Detected Test Performed at: [facility] [facility]/[address] ?? SUE WEN MD IGA 95 81 - 463 mg/dL [facility] . [facility] GLIADIN IGA AB 5 <20 units [facility] Comment: ??Value ? Interpretation ?<20 ? Antibody not detected ?? >=20 ? Antibody detected Xavi Aquino MD CHEMISTRY ORDERABLES Performing Organization Address City/[facility] Co de Phone Number INTERFACE SYSTEM Refer to clinic/hospital department [facility] [address] [place] [address] * HELICOBACTER PYLORI AB IGG/IGM/IGA (06/26/2012 6:00 PM MIXER SLAGMAN) H. PYLORI IGG Negative Negative [facility] Comment: H. pylori serology testing measures antibodies to H. pylori and is not recommended for the diagnosis of active infection. ??The [employer] and the [employer] recommend either the urea breath test 50064N[81475] or the fecal antigen test 28164K[8296] for diagnosis and confirmation or eradication in cases of suspected or proven Helicobacter pylori infection. Test Performed at: [facility] [facility]/[address] ?? SUE WEN MD H. PYLORI IGA Negative Negative [facility] H. PYLORI IGM Negative Negative [facility] Comment: H. pylori serology may result in false positives, especially in isolated IgM H. pylori positive patients. ??A Urea Breath test or stool antigen test for H. pylori should be considered if clinically indicated. This test was developed and its performance characteristics have been determined by [employer] [place], [place]. Performance characteristics refer to the analytical performance of the test. Xavi Aquino MD CHEMISTRY ORDERABLES Performing Organization Address [facility] Co de Phone Number INTERFACE SYSTEM Refer to clinic/hospital department [facility] [address] [place] [address] documented in this encounter Visit Diagnoses Diagnosis Diarrhea Abdominal pain, epigastric documented in this encounter
--- OUTSIDE RECORDS SUMMARY | 2024-05-27 15:53 | XMS_ITS | Encounter Summary ---
Author Organization [facility] Address [address] [place] [address] Care Team Providers Care Police Magistrate Name Role Phone Terrie Manning MD Primary Care Provider +1- [phone] Reason for Visit * Reason Onset Date Comments Results 01/11/2019 Karyotype Result s Encounter Details Date Type Department Care Team (Late st Contact Info) Description 01/11/2019 Telephone [facility] Genetic Counseling Maternal [address] [place] [address] Francisco J Cook C[place] [address] [facility] [address] [place] [address] Results (Karyotype Results) Social History [...] 9:45 AM CDT Office Visit [facility] MAIL OFFICER - [facility] [address] [place] [address] Terrie Manning MD [address] [place], [place] [address] [place] [address] documented as of this encounter Visit Diagnoses Not on filedocumented in this encounter Care Teams Police Magistrate Relationship Specialty Start Date End Date Terrie Manning MD PCP - General Obstetrics and Gynecology 05/27/13 documented as of this encounter
--- OUTSIDE RECORDS SUMMARY | 2024-05-27 15:53 | XMS_ITS | Encounter Summary ---
Author Organization [facility] Address [address] [place] [address] Care Team Providers Care Gem Cutter Name Role Phone Terrie Manning MD Primary Care Provider +1- [phone] Reason for Visit * Auth/Cert Specialty Diagnoses / Procedures Referred By Contac t Referred To Contact Obstetrics Diagnoses eil Stlo Labor [address] [place] [address] Referral ID Status Reason Start Date Expiration Date Visits Re quested Visits Authorized [id number] 1 1 Encounter Details Date Type Department Care Team (Latest Contact Info) Description 08/20/2017 5:02 PM CDT - 08/25/2017 11:36 AM CDT Hospital Encounter [facility] Mother/Baby 6C [address] [place] [address] Terrie Manning MD [address] [facility] [address] [place] [address] Discharge Disposition: Home or Self [...] Discharge date: Attending Physician: Terrie Manning MD [place] Data: Information for the patient's : Mary Alarcon [[id number]] 1 Minute Score: 5 (08/21/17 1147) 5 Minute Score: 8 (08/21/17 1147) Information for the patient's : Mary Alarcon [[id number]] Weight: 4139 g (9 lb 2 oz) [...] MD Quantity: 30 Tablet Refills: 0 Vit 24-Jlde-YT-DSS 90-1-50 mg Tablet Commonly known as: ADVANCED [...] Dispensed Refills Start Date End Date Vit 46-Tvhh-VT-DSS (ADVANCED ) 90-1-50 mg Tablet Take 1 [...] attending Charles Acuña MD, PGY-1 Dept. Of LIVESTOCK FEEDER Pager: [phone] * Yu Leal RN - 08/25/2017 6:31 [...] post-op care Ro Cox DO PGY1 Dept [employer]IVESTOCK FEEDER Pager [phone] * Larissa Barksdale MD - 08/23/2017 1:07 [...] post-op care. Ro Cox DO PGY1 Dept LIVESTOCK FEEDER Pager [phone] * Terrie Manning MD - 08/22/2017 9:12 [...] post-op care Ro Cox DO PGY1 Dept LIVESTOCK FEEDER Pager [phone] * Sailaja Vera GN - 08/22/2017 3:30 [...] FHR: 140, mod variability, +accels, no decels [place]: q2min Active Problems: Normal labor and delivery [...] FHR: 140, mod variability, +accels, no decels [place]: occasional Active Problems: Normal labor and delivery [...] PTL Lv 2 Current 1 08/2016 SAB HEAD KILN OPERATOR Hx: Hx of abnormal pap smear in [...] ??? HX WISDOM TEETH EXTRACTION ??? NE COLONOSCOPY FLX DX W/COLLJ SPEC WHEN PFRMD 06/06/2013 COLONOSCOPY performed by Xavi Aquino MD at [facility] ??? NE ESOPHAGOGASTRODUODENOSCOPY TRANSORAL DIAGNOSTIC 06/06/2013 ESOPHAGOGASTRODUODENOSCOPY performed by Xavi Aquino MD at [facility] ??? NE HYSTEROSCOPY,W/ENDO BX N/A 08/11/2016 HYSTEROSCOPY WITH DILATATION AND CURETTAGE SUCTION performed by Dustin Bill MD at [facility] ??? NE ORAL SURGERY FHx: Negative for genetic tendencies or bleeding disorders SHx: denies tobacco, alcohol, or illicit drug use Medications: No current facility-administered medications on file prior to encounter. Current Outpatient Prescriptions on File Prior to Encounter Medication Sig Dispense Refill ??? Vit 84-Uiru-GA-DSS (ADVANCED ) 90-1-50 mg Tablet Take 1 [...] FHR: 140, mod variability, +accels, no decels [place]: irregular q 8min BSUS: vertex Assessment/Plan: 31 y.o. @ 40w1d admitted for EIL, uncomplicated 1. Elective induction of labor - SVE 2cm, 70, -2 on admission - BSUS: vertex - Pitocin per protocol - GBS neg 2. status - NST reactive category 1 3. labs: - Blood type O+ - RI/NR/-/- 4. Anticipate RN discussed with MD Sarah Grullon MD Resident Physician, [facility], [place], [place] Pager [phone] FHT Addendum: FHR: 140, moderate variability, accels no decels [place]: q 4-5 min Category 1 Frederick Jovel DO Instructor Apparel Manufacture Resident, PGY-1 Pager [phone] documented in this encounter Consult Notes * [...] has quality pump if needed. 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 Briefly discussed. Aware of [...] Manning MD - 08/29/2017 10:19 PM CDT [place], [place] [address] Operative Report CSN: [id number] DATE OF SERVICE: 08/21/2017 SURGEON Terrie Manning MD PREOPERATIVE DIAGNOSES 1. Term intrauterine . 2. Transverse arrest. POSTOPERATIVE DIAGNOSES 1. Term intrauterine , 2. Transverse arrest. OPERATION NAME Low transverse section with T extension and breech delivery. ANESTHESIA Epidural. RETAIL GENERAL MANAGER 1. Sumaya Stoddard DO, PGY 1 2. [...] DVT prophylaxis throughout the procedure. KL:MEDQ DID: [id number] Dictated by: Terrie Manning MD * Anesthesia [...] EFM placed and FHR is between 120 juy425. The pt's abdomen was cleaned with Dura-prep. * Brief Op Note - Sumaya Stoddard DO - 08/21/2017 12:08 PM CDT Brief Postoperative Note Angela Alarcon [id number] Pre-operative Diagnosis: 1. Arrest of descent 2. [...] CDT Office Visit [facility] LIVESTOCK FEEDER - [facility] [address] [address] [address] Terrie Manning MD [address] [facility] [address] [place] [address] documented as of this encounter [...] ABO GROUP O 08/21/2017 11:02 AM CDT [facility] -- [facility] RH (D) TYPE Positive 08/21/2017 11:02 AM CDT [employer] [facility] -- [facility] ANTIBODY SCREEN Negative 08/21/2017 11:02 AM CDT [employer] [facility] -- [facility] Blood Venipuncture / Unknown 08/21/2017 10:28 AM CDT 08/21/2017 10:28 AM CDT Terrie Manning MD BLOOD BANK ORDERAB LES [facility]ATORY [facility] -- [facility] CLIA# [id number] [address] [place] [address] * (ABNORMAL) CBC WITH DIFFERENTIAL (08/20/2017 6:03 PM CDT) [facility] WBC 6.9 4.0 - 9.8 K/uL 08/20/2017 6:49 PM CDT [facility] RBC 3.74(L) 3.90 - 4.90 M/uL 08/20/2017 6:49 PM CDT [facility] HEMOGLOBIN 11.2(L) 11.8 - 14.8 g/dL 08/20/2017 6:49 PM CDT [facility] HEMATOCRIT 35.5 35.5 - 44.0 % 08/20/2017 6:49 PM CDT [facility] MCV 94.9 82.0 - 99.0 fL 08/20/2017 6:49 PM CDT [facility] - [facility] MCH 29.9 27.2 - 32.6 pg 08/20/2017 6:49 PM CDT [facility] - [facility] MCHC 31.5 31.5 - 35.5 g/dL 08/20/2017 6:49 PM CDT [facility] - [facility] RDW 13.9 11.5 - 14.5 % 08/20/2017 6:49 PM CDT [facility] RDW-STDEV 48.1 37.1 - 48.7 fL 08/20/2017 6:49 PM CDT [facility] - [facility] PLATELETS 257 140 - 350 K/uL 08/20/2017 6:49 PM CDT [facility] - [facility] MPV 9.8 9.3 - 12.4 fL 08/20/2017 6:49 PM CDT [facility] - . [facility] NEUTROPHILS 67 % 08/20/2017 6:49 PM CDT [facility] LYMPHOCYTES 21 % 08/20/2017 6:49 PM CDT [facility] MONOCYTES 12 % 08/20/2017 6:49 PM CDT [facility] EOSINOPHILS 0 % 08/20/2017 6:49 PM CDT [facility] BASOPHILS 0 % 08/20/2017 6:49 PM CDT [facility] IMMATURE GRANULOCYTES 0 % 08/20/2017 6:49 PM CDT [facility] - [facility] NEUTROPHIL ABSOLUTE 4.61 1.90 - 7.00 K/uL 08/20/2017 6:49 PM CDT [facility] - [facility] LYMPHOCYTE ABSOLUTE 1.42 0.70 - 4.50 K/uL 08/20/2017 6:49 PM CDT [facility] - [facility] MONOCYTE ABSOLUTE 0.84 0.10 - 1.30 K/uL 08/20/2017 6:49 PM CDT [facility] EOSINOPHIL ABSOLUTE 0.03 0.00 - 0.70 K/uL 08/20/2017 6:49 PM CDT [facility] BASOPHILS ABSOLUTE 0.01 0.00 - 0.20 K/uL 08/20/2017 6:49 PM CDT [facility] - . [facility] IMMATURE GRANULOCYTES ABSOLUTE 0.03 0.00 - 0.03 K/uL 08/20/2017 6:49 PM CDT [facility] - [facility] Blood Venipuncture / Unknown 08/20/2017 6:03 PM CDT 08/20/2017 6:23 PM CDT Terrie Manning MD HEMATOLOGY ORDERAB LES [facility] - [facility] CLIA# [id number] [address] [id number] * BLOOD BANK DRAW ONLY (08/20/2017 6:03 PM CDT) [facility] SPECIMEN HOLD, BLOOD Order Complete 08/20/2017 7:16 PM CDT [facility] -- [facility] Blood Venipuncture / Unknown 08/20/2017 6:03 PM CDT 08/20/2017 6:24 PM CDT Terrie Manning MD BLOOD BANK ORDERAB LES [facility] -- [facility] CLIA# [id number] [address] [place] [address] * (BROTH-ENRICHED) GROUP B STREP DETECTION (07/27/2017) ABSTRACTED STREP GROUP B CULTURE negative EXTERNAL LAB Historical Provider MICROBIOLOGY - GENER AL ORDERABLES Performing Organization Address [facility] Co de Phone Number EXTERNAL LAB * RPR (01/14/2017) ABSTRACTED RPR nonreactive EXTERNAL LAB Blood Historical Provider CHEMISTRY ORDERABLES Performing Organization Address City/[facility] Co de Phone Number EXTERNAL LAB * TYPE AND SCREEN (01/14/2017) ABSTRACTED ABOGROUP O EXTERNAL LAB ABSTRACTED RH(D) TYPE positive EXTERNAL LAB Blood Historical Provider BLOOD BANK ORDERABLE S Performing Organization Address [facility] Co de Phone Number EXTERNAL LAB * HIV DETECTION W/REFLX CONFIRMATION (01/14/2017) ABSTRACTED HIV-1 AND 2 ABS negative EXTERNAL LAB Blood Historical Provider CHEMISTRY ORDERABLES Performing Organization Address City/[facility]/ZIP Co de Phone Number EXTERNAL LAB * HEPATITIS B SURFACE ANTIGEN (01/14/2017) ABSTRACTED HEPATITIS B SURFACE AG negative EXTERNAL LAB Blood Historical Provider CHEMISTRY ORDERABLES Performing Organization Address City/[facility]/ZIP Co de Phone Number EXTERNAL LAB * RUBELLA IGG (01/14/2017) ABSTRACTED RUBELLA IGG immune EXTERNAL LAB Blood Historical Provider CHEMISTRY ORDERABLES Performing Organization Address City/[facility] Co de Phone Number EXTERNAL LAB [...] - Provider: Irma Quesada RN) raúl patiño ([facility]) 50 % topical pads 1 Each 1 Each, Topical, DAILY PRN, Starting on 08/21/17 at 1518, Until Mon08/25/17 at 1341, Discomfort, Routine, Post-op - Floor documented in this encounter Care Teams Gem Cutter Relationship Specialty Start Date End Date Terrie Manning MD PCP - General Obstetrics and Gynecology 05/27/13 documented as of this encounter
--- OUTSIDE RECORDS SUMMARY | 2024-05-27 15:53 | XMS_ITS | Encounter Summary ---
Author Organization [facility] Address [address] [place] [address] Care Team Providers Care Huller Operator Name Role Phone Terrie Manning MD Primary Care Provider +1- [phone] Reason for Visit * Reason Comments Routine Visit Encounter Details Date Type Department Care Team (Late st Contact Info) Description 02/20/2019 visit [facility] ABSTRACTION Terrie Manning MD [address] [place] [address] Trisomy 18 of fetus in current [...] CDT Office Visit [facility] AVIATION ELECTRONIC WARFARE OPERATOR - [facility] [address] [address] Terrie Manning MD [facility] [address] [place] [address] documented as of this encounter Visit Diagnoses Diagnosis 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
--- OUTSIDE RECORDS SUMMARY | 2024-05-27 15:53 | XMS_ITS | Encounter Summary ---
Author Organization [facility] Address [address] [place] [address] Care Team Providers Care Loading Shovel Oiler Name Role Phone Terrie Manning MD Primary Care Provider +1- [phone] Encounter Details Date Type Department Care Team (Latest Contact Info) Description 03/20/2019 9:30 AM CDT Ancillary Procedure [facility] SALES AGENT PEST CONTROL SERVICE - [facility] [address] [place] [address] Encounter for ultrasound to check growth; [...] CDT Office Visit [facility] SALES AGENT PEST CONTROL SERVICE - [facility] [address] [place] [address] Terrie Manning MD [address] [place] [address] [address] [place] [address] documented as of this encounter Procedures Procedure [...] fetus documented in this encounter Care Teams Loading Shovel Oiler Relationship Specialty Start Date End Date Terrie Manning MD PCP - General Obstetrics and Gynecology 05/27/13 documented as of this encounter
--- OUTSIDE RECORDS SUMMARY | 2024-05-27 15:53 | XMS_ITS | Encounter Summary ---
Author Organization [facility] Address [address] [place] [address] Care Team Providers Care Correctional Supervisor Name Role Phone Unavailable Primary Care [...] Date Expiration Date Visits Requested Visits Authorized [id number] Closed Ordering Department To Schedule 11/14/2012 11/15/2013 1 1 Reason for Visit * Reason Comments Irritable Bowel Syndrome Abdominal Pain Diarrhea Encounter Details Date Type Department Care Team (Latest Contact Info) Description 11/14/2012 2:20 PM CDT Office Visit [facility] Gastroenterology [facility] [address] [address] Xavi Aquino MD NO ADDRESS [...] She and her are leaving for a [employer] cruise next week for two weeks. Physical [...] LFTs- will repeat LFTs. Xavi Aquino MD [facility] Digestive Diseases documented in this encounter Plan of Treatment Upcoming Encounters Date Type Department Care Team (Late st Contact Info) Description 10/08/2024 9:45 AM CDT Office Visit [facility] CRITICAL CARE PARAMEDIC - Medical [place] [address] [address] Terrie Manning MD [facility] [address] [place] [address] Scheduled Referrals Name Type Priority Associated Diagnoses Order Schedule AMB REFERRAL TO GASTROENTEROLOGY Outpatient Referral Routine Abdominal pain, right upper quadrant Diarrhea Ordered: 11/14/2012 documented as of this encounter Visit Diagnoses Diagnosis Abdominal pain, right upper quadrant- Primary Diarrhea documented in this encounter
--- OUTSIDE RECORDS SUMMARY | 2024-05-27 15:53 | XMS_ITS | Encounter Summary ---
Author Organization [facility] Address [address] [place] [address] Care Team Providers Care Waxer Name Role Phone Bebeto Baca MD Primary Care Provider +1- [phone] Reason for Visit * Reason Comments Routine Visit Encounter Details Date Type Department Care Team (Late st Contact Info) Description 03/06/2019 10:40 AM CDT visit [facility] CREATIVE LEAD - Medical [address] [address] Bebeto Baca MD [facility] [address] [place] [address] Trisomy 18 of fetus in [...] Office Visit [facility] CREATIVE LEAD - [facility] [address] [address] Bebeto Baca MD [address] [place] [address] documented as of this encounter Procedures Procedure Name Priority Date/Time Associated Diagnosis Comments HEPATITIS B SURFACE ANTIGEN Routine 09/10/2018 RUBELLA IGG Routine 09/10/2018 CBC WITH DIFFERENTIAL Routine 09/10/2018 RPR Routine 09/10/2018 TYPE AND SCREEN Routine 09/10/2018 TSH Routine 09/10/2018 documented in this encounter Results * TSH (09/10/2018) ABSTRACTED TSH 0.47 [facility] Blood Historical Provider CHEMISTRY ORDERABLES Performing Organization Address [facility]/ZIP Co de Phone Number [facility] CLIA# [id number] [address] [place] [address] * RPR (09/10/2018) ABSTRACTED RPR NEGATIVE [facility] Blood Historical Provider CHEMISTRY ORDERABLES Performing Organization Address [facility]/ZIP Co de Phone Number [facility] CLIA# [id number] [address] [place] [address] * TYPE AND SCREEN (09/10/2018) ABSTRACTED ANTIBODY SCREEN NEGATIVE [facility] ABSTRACTED ABOGROUP O [facility] ABSTRACTED RH(D) TYPE POSITIVE [facility] Blood Historical Provider BLOOD BANK ORDERABLE S Performing Organization Address [facility]/State/ZIP Co de Phone Number [facility] CLIA# [id number] [address] [place] [address] * HEPATITIS B SURFACE ANTIGEN (09/10/2018) ABSTRACTED HEPATITIS B SURFACE AG NEGATIVE [facility] Blood Historical Provider CHEMISTRY ORDERABLES Performing Organization Address City/[facility] [address]/[facility] Co de Phone Number [facility] CLIA# [id number] [address] [place] [address] * RUBELLA IGG (09/10/2018) ABSTRACTED RUBELLA IGG 2.58 [facility] Blood Historical Provider CHEMISTRY ORDERABLES Performing Organization Address [facility] Co de Phone Number [facility] CLIA# [id number] [address] [place] [address] * CBC WITH DIFFERENTIAL (09/10/2018) ABSTRACTED HEMATOCRIT 40.4 [facility] ABSTRACTED HEMOGLOBIN 12.9 [facility] ABSTRACTED MCV 89.8 [facility] Blood Historical Provider HEMATOLOGY ORDERABLE S Performing Organization Address [facility] Co de Phone Number [facility] CLIA# [id number] [address] [place] [address] documented in this encounter Visit Diagnoses Diagnosis 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
--- OUTSIDE RECORDS SUMMARY | 2024-05-27 15:53 | XMS_ITS | Encounter Summary ---
Author Organization [facility] Address [address] [place] [address] Care Team Providers Care Shipyard Laborer Name Role Phone Terrie Manning MD Primary Care Provider +1- [phone] Reason for Visit * Reason Onset Date Comments Miscarriage 08/23/2016 Called Angela to follow up since her recent miscarriage. No answer. Left message with my contact information. Encounter Details Date Type Department Care Team ([facility] Contact Info) Description 08/23/2016 Telephone [facility] [address] [place] [address] Nisa Padron RN Miscarriage (Called [...] Care Team ([facility] Contact Info) Description 10/08/2024 9:45 AM CDT Office Visit [facility] ANIMAL HUSBANDRY MANAGER - Medical [facility] [address] [facility] [address] [place] [address] Terrie Manning MD [address] [place] [address] [address] [place] [address] documented as of this encounter Visit Diagnoses Not on filedocumented in this encounter Care Teams Shipyard Laborer Relationship Specialty Start Date End Date Terrie Manning MD PCP - General Obstetrics and Gynecology 05/27/13 documented as of this encounter
--- OUTSIDE RECORDS SUMMARY | 2024-05-27 15:53 | XMS_ITS | Encounter Summary ---
Author Organization [facility] Address [address] [place] [address] Care Team Providers Care Material Handling Crew Supervisor Name Role Phone Terrie Manning MD Primary Care Provider +1- [phone] Reason for Visit * Reason Onset Date Comments Results 06/12/2013 Encounter Details Date Type Department Care Team (Late st Contact Info) Description 06/12/2013 Telephone [facility] Gastroenterology - [address] [address] Xavi Aquino MD NO ADDRESS [...] twice daily - titrate to affect. BW E REPAIRER documented in this encounter Plan of Treatment Upcoming Encounters Date Type Department Care Team (Late st Contact Info) Description 10/08/2024 9:45 AM CDT Office Visit [facility] PROPERTY MASTER - [facility] [address] [address] Terrie Manning MD [facility] [address] [place] [address] documented as of this encounter Visit Diagnoses Diagnosis Diarrhea- Primary documented in this encounter Care Teams Material Handling Crew Supervisor Relationship Specialty Start Date End Date Terrie Manning MD PCP - General Obstetrics and Gynecology 05/27/13 documented as of this encounter
--- OUTSIDE RECORDS SUMMARY | 2024-05-27 15:53 | XMS_ITS | Encounter Summary ---
Author Organization [facility] Address [address] [place] [address] Care Team Providers Care Management Trainee Name Role Phone Bebeto Manning MD Primary Care Provider +1- [phone] Reason for Visit * Auth/Cert - Closed Specialty Diagnoses / Procedures Referred By Contac t Referred To Contact Gastroenterology Diagnoses CHRONIC DIARRHA, REFLUX, FM HX OF COLON CANCER Procedures COLONOSCOPY [facility] [address] [place] [address] Referral ID Status Reason Start Date Expiration Date Visits Re quested Visits Authorized [id number] Closed 1 1 Encounter Details Date Type Department Care Team (Late st Contact Info) Description 06/06/2013 10:00 AM VIBRATION ANALYST - 06/06/2013 10:30 AM VIBRATION ANALYST Surgery [facility] [address] [place] [address] Xavi Aquino MD NO ADDRESS ON FILE COLONOSCOPY Surgery Details Date/Time Status Location OR Service Patient Class Case Class Case Type Trauma Case? 06/06/2013 10:00 AM Posted [facility] GI 01 Gastroenterology Outpatient Elective [...] Comments Blood Pressure 106/69 06/06/2013 10:21 AM VIBRATION ANALYST Pulse 113 06/06/2013 10:21 AM VIBRATION ANALYST Temperature 36.4 ??C (97.5 ??F) 06/06/2013 10:[address] Respiratory Rate 16 06/06/2013 10:21 AM VIBRATION ANALYST Oxygen Saturation 98% 06/06/2013 10:21 AM VIBRATION ANALYST Inhaled Oxygen Concentration - - Weight 63.5 kg (140 lb) 06/03/2013 1:30 PM VIBRATION ANALYST Height 180.3 cm (5' 11 ) 06/03/2013 1:30 PM VIBRATION ANALYST Body Mass Index 19.53 06/03/2013 1:30 PM VIBRATION ANALYST documented in this encounter Discharge Instructions * Discharge Instructions* Xavi Aquino MD - 06/06/2013 10:27 AM VIBRATION ANALYST Instructions after EGD and Colonoscopy After an [...] weeks, please call the office. Office Phone: [facility] [phone] [facility]???s [phone] [place] [phone] [facility] [phone] Exchange: ATION ANALYST documented in this encounter Medications at Time [...] mentioned procedure(s) as scheduled. Xavi Aquino MD ATION ANALYST documented in this encounter Procedure Notes * Xavi Aquino MD - 06/06/2013 10:27 AM CSTAssociated Order(s): GI REPORT [facility] Endoscopy Patient Name: Inessa Alarcon Procedure [...] electronically. Number of Addenda: 0 [address] [place] [address] [facility] [address] ATION ANALYST * Xavi Aquino MD - 06/06/2013 10:25 AM CSTAssociated Order(s): GI REPORT [facility] Endoscopy Patient Name: Inessa Alarcon Procedure [...] signed electronically. Number of Addenda: 0 [address] [place] [address] ATION ANALYST documented in this encounter OR Notes * [...] wetness] Jose Haque MD 06/06/2013 10:26 AM ATION ANALYST * OR Anesthesia - Jose Haque MD - 06/06/2013 10:13 AM CST Pre-Anesthesia Evaluation - Long Form 06/06/2013 10:14 AM Name: Inessa Alarcon Age: 27 y.o. Sex: female [facility]: [id number] Procedure: Procedure(s): COLONOSCOPY ESOPHAGOGASTRODUODENOSCOPY Surgeons/Assistants: Surgeon(s) and [...] can be reached during the day at [phone] If no answer call [phone] ATION ANALYST documented in this encounter Plan of Treatment Upcoming Encounters Date Type Department Care Team (Late st Contact Info) Description 10/08/2024 9:45 AM CDT Office Visit [facility] [place] ASSISTANT PRODUCT MANAGER - [facility] [address] [place] [address] Bebeto Manning MD [facility] [address] [address] documented as of this encounter Procedures Procedure Name Priority Date/Time Associated Diagnosis Comments PATHOLOGY Routine 06/06/2013 12:02 PM VIBRATION ANALYST GI REPORT 06/06/2013 10:28 AM VIBRATION ANALYST GI REPORT 06/06/2013 10:26 AM VIBRATION ANALYST POC H.PYLORI SCREEN, BIOPSY Routine 07/2013 9:57 AM VIBRATION ANALYST ESOPHAGOGASTRODUODENOSCOPY 06/06 9:54 AM VIBRATION ANALYST CHRONIC DIARRHA, REFLUX, FM HX OF COLON CANCER Case Notes NPR - [facility] COLONOSCOPY 06/06/2013 9:54 AM VIBRATION ANALYST CHRONIC DIARRHA, REFLUX, FM HX OF COLON CANCER Case Notes [facility] - [facility] documented in this encounter Results * PATHOLOGY (06/06/2013 12:02 PM VIBRATION ANALYST) SURGICAL PATHOLOGY ?[facility] ?[address] [facility] ? [place], [place] ??[address] ? Patient: ??IVANA, INESSA A ? : ??1985 ? Procedure Date: ??06/06/2013 ? Accession Date: ??06/06/2013 ? Case No: ??1- [id number] ? Ordering Dr: ??XAVI AQUINO ? Case type SW is performed by [facility], [address] [place] [address], ? [place], [place] ??[address]; all other case types are performed by [facility] ? [facility], [address] [place], [place] ??[address] ?SURGICAL PATHOLOGY & NON-GYNECOLOGIC CYTOPATHOLOGY REPORT ? [...] and its performance ? characteristic determined by [facility], Department of ? Laboratory Medicine. ??It has [...] FOR ABILIO MARIN M.D.- 06/07/13 01:09 pm [facility] LABORATORY SERVICES [facility] Tissue specimen (specimen) 06/06/2013 12:02 PM VIBRATION ANALYST Xavi Aquino MD PATHOLOGY/CYTOLOGY O [place] [facility] LABOR[facility]ORY [facility]# [id number] [address] [place] [address] * GI REPORT (06/06/2013 10:28 AM VIBRATION ANALYST) Narrative Transcriptions Xavi Aquino MD - 06/06/2013 10:27 AM CST [facility] Endoscopy [facility] Endoscopy Patient Name: Inessa Alarcon Procedure Date [...] signed electronically. Number of Addenda: 0 [address] [facility] [address] [facility] [address] Xavi Aquino MD GI PROCEDURE ORDERAB LES * GI REPORT (06/06/2013 10:26 AM VIBRATION ANALYST) Narrative Transcriptions Xavi Aquino MD - 06/06/2013 10:25 AM CST [facility] Endoscopy Patient Name: Inessa Alarcon Procedure [...] signed electronically. Number of Addenda: [address] [address] Xavi Aquino MD GI PROCEDURE ORDERAB LES * POC H.PYLORI SCREEN, BIOPSY (06/06/2013 9:57 AM VIBRATION ANALYST) H PYLORI SCREEN POC Negative Negative INTERFACE SYSTEM CLIA LICENSE [id number] INTERF TATIANA SYSTEM Specimen from unspecified body site obtained by biopsy (specimen) 06/06/2013 9:57 AM VIBRATION ANALYST 06/06/2013 9:57 AM VIBRATION ANALYST Comment:BIOPSY Xavi Aquino MD POINT OF CARE [...] Routine, Pre-Procedure New Bag 06/06/2013 9:30 AM VIBRATION ANALYST 125 mL/hr documented in this encounter Active and Recently Administered Medications Times are shown in VIBRATION ANALYST. Continuous Medication Order 06/04/2013 06/05/2013 06/06/2013 lactated ringers solution (CANCELED) IV, at 125 mL/hr, PRE-PROCEDURE CONTINUOUS, Starting on Shaila 14 at 0930, Until Shaila 14 at 1252, Routine, Pre-Procedure 0930 (New Bag - Prov ider: Rose Marie Chinchilla RN)1033 (Stopped - Provider: Beth Laguna RN) documented in this encounter Care Teams Management Trainee Relationship Specialty Start Date End Date Bebeto Manning MD PCP - General Obstetrics and Gynecology 05/27/13 documented as of this encounter
--- OUTSIDE RECORDS SUMMARY | 2024-05-27 15:53 | XMS_ITS | Encounter Summary ---
Author Organization [facility] Address [address] [place] [address] Care Team Providers Care Timber Sprinkler Name Role Phone Terrie Manning MD Primary Care Provider +1- [phone] Reason for Visit * Auth/Cert Specialty Diagnoses / Procedures Referred By Contac t Referred To Contact Obstetrics Diagnoses eil [facility] Labor [address] [place] [address] Referral ID Status Reason Start Date Expiration Date Visits Re quested Visits Authorized [id number] 1 1 Encounter Details Date Type Department Care Team (Late st Contact Info) Description 08/21/2017 1:28 AM CDT Anesthesia Event [facility] Labor & [address] [place] [address] Sailaja Madera MD [address] [facility] [address] [place] [address] Ely Conde CRNA NO ADDRESS [...] oximetry and Non-invasive blood pressure Approach: Midline [employer] [facility] Identification: palpation technique Number of Attempts: 1 [...] discussed with Patient. Plan discussed with Nurse Pai Gow Manager and Anesthesiologist. Post-op Pain Control Plan to [...] Monitoring Consents Signed: ;Vaginal delivery;Cytotec;Epidural;Circumcision;Blood consent (08/20/17 1733) Postop pain management discussed History reviewed, patient [...] AM CDT Office Visit [facility] CONFLICT RESOLUTION PROFESSIONAL - [facility] [address] [address] Terrie Manning MD [address] [facility] [address] [place] [address] documented as of this encounter Procedures Procedure Name Priority Date/Time Associated Diagnosis Comments [place] ANESTHESIA BLOCK PB PLACEHOLDER CHARGE Routine 08/21/2017 [...] pulse oximetry and Non-invasive bloodpressure Approach: Midline [employer] [employer] Identification: palpation technique Number of Attempts: 1 [...] mL documented in this encounter Care Teams Timber Sprinkler Relationship Specialty Start Date End Date Terrie Manning MD PCP - General Obstetrics and Gynecology 05/27/13 documented as of this encounter
--- OUTSIDE RECORDS SUMMARY | 2024-05-27 15:53 | XMS_ITS | Encounter Summary ---
Author Organization [facility] Address [address] [place] [address] Care Team Providers Care University Archivist Name Role Phone Terrie Manning MD Primary Care Provider +1- [phone] Reason for Visit * Reason Comments Initial Visit Encounter Details Date Type Department Care Team (Late st Contact Info) Description 09/10/2018 Initial STL ABSTRACTION Jackelyn Maciel, [place] [address] [address] Encounter for supervision of other [...] CDT Office Visit [facility] STIFF LEG OPERATOR - Medical [address] [address] Terrie Manning MD [address] [facility] [address] [place] [address] documented as of this encounter Visit Diagnoses Diagnosis Encounter for supervision of other normal , first trimester- Primary Encounter for screening 7 weeks gestation of Subchorionic hemorrhage of placenta in first trimester, single or unspecified fetus documented in this encounter Care Teams University Archivist Relationship Specialty Start Date End Date Terrie Manning MD PCP - General Obstetrics and Gynecology 05/27/13 documented as of this encounter
--- OUTSIDE RECORDS SUMMARY | 2024-05-27 15:53 | XMS_ITS | Encounter Summary ---
Author Organization [facility] Address [address] [place] [address] Care Team Providers Care Researcher Name Role Phone Unavailable Primary Care Provider Unavailabl e Encounter Details Date Type Department Care Team (Late st Contact Info) Description 06/25/2012 Abstract [facility] Gastroenterology [facility] [address] [facility] [address] [place] [address] Xavi Aquino MD NO ADDRESS [...] Office Visit [facility] SOFTWARE QUALITY MANAGER - Medical [facility] [address] [facility] [address] [place] [address] Terrie Manning MD [address] [facility] [address] [address] documented as of this encounter Visit Diagnoses Not on filedocumented in this encounter
--- OUTSIDE RECORDS SUMMARY | 2024-05-27 15:53 | XMS_ITS | Encounter Summary ---
Author Organization [facility] Address [address] [place] [address] Care Team Providers Care Media Center Assistant Name Role Phone Terrie Manning MD Primary Care Provider +1- [phone] Reason for Visit * Auth/Cert Specialty Diagnoses / Procedures Referred By Contac t Referred To Contact Obstetrics Diagnoses bleeding [facility] Ob Triage [address] [place] [address] Referral ID Status Reason Start Date Expiration Date Visits Re quested Visits Authorized [id number] 1 1 Encounter Details Date Type Department Care Team (Latest Contact Info) Description 08/09/2016 6:02 AM PUSH CONNECTOR ASSEMBLER - 08/09/2016 7:45 AM PUSH CONNECTOR ASSEMBLER Hospital Encounter [facility] OB Triage [address] [place] [address] Terrie Manning MD [address] [facility] [address] [place] [address] Discharge Disposition: Home or Self [...] Comments Blood Pressure 116/81 08/09/2016 6:31 AM PUSH CONNECTOR ASSEMBLER Pulse 100 08/09/2016 6:31 AM PUSH CONNECTOR ASSEMBLER Temperature 36.5 ??C (97.7 ??F) 08/09/2016 6:31 AM CS T Respiratory Rate 16 08/09/2016 6:31 AM PUSH CONNECTOR ASSEMBLER Oxygen Saturation - - Inhaled Oxygen Concentration - - Weight 70.3 kg (155 lb) 08/09/2016 6:31 AM PUSH CONNECTOR ASSEMBLER Height 180.3 cm (5' 11 ) 08/09/2016 6:31 AM PUSH CONNECTOR ASSEMBLER Body Mass Index 21.62 08/09/2016 6:31 AM PUSH CONNECTOR ASSEMBLER documented in this encounter Discharge Instructions * Discharge Instructions* Betzy Manjarrez RN - 08/09/2016 7:41 AM PUSH CONNECTOR ASSEMBLER [place] to follow up with your next scheduled appointment. Pelvic rest until given the OK by Dr. Manning. Monitor your bleeding. If you soak 1 maxi pad in [address] Tamayo exchange or return to OB triage. CONNECTOR ASSEMBLER * Attachments The following attachments cannot be sent through Care Everywhere. * MISCARRIAGE: THREATENED (MALAY) documented in this encounter Medications at Time of Discharge Medication Sig Dispensed Refills Start Date End Date progesterone micronized (PROMETRIUM) 100 mg Capsule Take by mouth daily. 018 Vit 00-Mypu-OG-DSS (ADVANCED ) 90-1-50 mg Tablet Take 1 [...] discharged home ambulatory with at her side. CONNECTOR ASSEMBLER * Lakshmi Elder RN - 08/09/2016 6:33 AM CST Pt presents to OB triage with complaints of vaginal bleeding and cramping that started at 0300 thismorning with huge clots following at 0400. Report given to John Contreras CNM. CONNECTOR ASSEMBLER documented in this encounter H&P Notes * [...] appt with Dr. Manning in twodays.Her primary armament installer is Terrie Manning MD. Current Problem List: [...] by Xavi Aquino MD at [facility] ??? Pr esophagogastroduodenoscopy transoral diagnostic 06/06/2013 ESOPHAGOGASTRODUODENOSCOPY performed by Xavi Aquino MD at [facility] ??? Hx wisdom teeth extraction Social History: Family History Problem Relation Age of Onset ??? Colon Polyps Maternal Grandmother Prescriptions Prior to Admission Medication Sig Dispense Refill Last Dose ??? progesterone micronized (PROMETRIUM) 100 mg Capsule Take by mouth daily. 08/08/2016 at Unknown time ??? estradiol (ESTRACE) 1 mg tablet Take 1 mg by mouth daily. 08/08/2016 at Unknown time ??? Vit 62-Crtq-PJ-DSS (ADVANCED ) 90-1-50 mg Tablet Take 1 [...] estradiol (ESTRACE) 1 mg tablet ??? Vit 47-Muzc-XS-DSS (ADVANCED ) 90-1-50 mg Tablet 0735: Spoke to Dr. Manning: OK to be discharged and keep her appt with her on 08/11/2016. Bleeding precautions reviewed. Pelvic rest. documented in this encounter Plan of Treatment Upcoming Encounters Date Type Department Care Team (Late st Contact Info) Description 10/08/2024 9:45 AM CDT Office Visit [facility] REIMBURSEMENT SPECIALIST - Medical [facility] [address] [place] [address] Terrie Manning MD [facility] [address] [place] [address] documented as of this encounter Procedures Procedure Name Priority Date/Time Associated Diagnosis Comments VERIFICATION BLOOD GROUP Routine 08/09/2016 6:57 AM PUSH CONNECTOR ASSEMBLER RH IMMUNE GLOBULIN EVALUATION Stat 08/09/2016 6:57 AM PUSH CONNECTOR ASSEMBLER documented in this encounter Results * VERIFICATION BLOOD GROUP (08/09/2016 6:57 AM PUSH CONNECTOR ASSEMBLER) ABO GROUP O 08/09/2016 7:40 AM PUSH CONNECTOR ASSEMBLER [facility] RH (D) TYPE Positive 08/09/2016 7:40 AM PUSH CONNECTOR ASSEMBLER [facility]ORAT[facility] SERVICES -- [facility] Blood Venipuncture / Unknown 08/09/2016 6:57 AM PUSH CONNECTOR ASSEMBLER 08/09/2016 7:06 AM PUSH CONNECTOR ASSEMBLER Harriet Contreras [facility] BLOOD B[facility] ORD [facility] -- [facility] CLIA# [id number] [address] [place] [address] * RH IMMUNE GLOBULIN EVALUATION (08/09/2016 6:57 AM PUSH CONNECTOR ASSEMBLER) ABO GROUP O 08/09/2016 7:36 AM PUSH CONNECTOR ASSEMBLER [facility] SERVICES -- [facility] RH (D) TYPE Positive 08/09/2016 7:36 AM PUSH CONNECTOR ASSEMBLER [facility] LABORATORY SERVICES -- [facility] CORD BLOOD TYPE Cord Blood Grp and Rh Unknown 08/09/2016 7:36 AM PUSH CONNECTOR ASSEMBLER [facility] LABORATORY SERVICES -- [facility] RHIG ELIGIBILITY No RHIg, pt Rh Pos 08/09/2016 7:36 AM PUSH CONNECTOR ASSEMBLER [facility] LABORATORY SERVICES -- [facility] Blood Venipuncture / Unknown 08/09/2016 6:57 AM PUSH CONNECTOR ASSEMBLER 08/09/2016 7:06 AM PUSH CONNECTOR ASSEMBLER Harriet Contreras [facility] BLOOD BANK ORD [employer] [facility] -- [facility] CLIA# [id number] [address] [place] [address] documented in this encounter Visit Diagnoses Diagnosis Threatened in first trimester Threatened , unspecified as to episode of care documented in this encounter Care Teams Media Center Assistant Relationship Specialty Start Date End Date Terrie Manning MD PCP - General Obstetrics and Gynecology 05/27/13 documented as of this encounter
--- OUTSIDE RECORDS SUMMARY | 2024-05-27 15:53 | XMS_ITS | Encounter Summary ---
Author Organization [facility] Address [address] [place] [address] Care Team Providers Care Senior Data Developer Name Role Phone Terrie Manning MD Primary Care Provider +1- [phone] Reason for Visit * Reason Onset Date Comments Miscarriage 08/17/2016 Called Angela to follow up since recent loss by miscarriage. No answer. Left message with my contact information. Encounter Details Date Type Department Care Team ([facility] Contact Info) Description 08/17/[address] [facility] [address] [place] [address] Nisa Padron RN Miscarriage (Called [...] Upcoming Encounters Date Type Department Care Team ([facility] Contact Info) Description 10/08/2024 9:45 AM CDT Office Visit [facility] CHECK OUT CLERK - Medical [facility] [address] [facility] [address] [place] [address] Terrie Manning MD [address] [facility] [address] [place] [address] documented as of this encounter Visit Diagnoses Not on filedocumented in this encounter Care Teams Senior Data Developer Relationship Specialty Start Date End Date Terrie Manning MD PCP - General Obstetrics and Gynecology 05/27/13 documented as of this encounter
--- OUTSIDE RECORDS SUMMARY | 2024-05-27 15:53 | XMS_ITS | Encounter Summary ---
Author Organization [facility] Address [address] [place] [address] Care Team Providers Care Dry Wall Nailer Name Role Phone Terrie Baca MD Primary Care Provider +1- [phone] Reason for Visit * Reason Comments Routine Visit Encounter Details Date Type Department Care Team (Late st Contact Info) Description 03/27/2019 10:20 AM CDT visit [facility] ENERGY CONSERVATION ENGINEER - Medical [address] [address] Terrie Baca MD [facility] [address] [place] [address] Trisomy 18 of fetus in [...] 9:45 AM CDT Office Visit [facility] ENERGY CONSERVATION ENGINEER - [facility] [address] [address] Terrie Baca MD [address] 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
--- OUTSIDE RECORDS SUMMARY | 2024-05-27 15:53 | XMS_ITS | Encounter Summary ---
Author Organization [facility] Address [address] [place] [address] Care Team Providers Care Resistance Machine Welder Setter Name Role Phone Terrie Manning MD Primary Care Provider [phone]- [phone] Encounter Details Date Type Department Care Team (Late st Contact Info) Description 08/11/2016 4:17 PM WRAPPER LAYER AND EXAMINER SOFT WORK Anesthesia Event [facility] [address] [place] [address] Cole Mccray MD [address] [place] [phone] Arpit Benson AA-C [address] [place] [phone] Anesthesia Record Procedure Summary Procedure Name [...] MD 08/11/2016 5:11 PM Cole Mccray MD PER LAYER AND EXAMINER SOFT WORK * Anesthesia Handoff - Arpit Benson AA-C [...] (08/11/2016 3:39 PM) 5:05 PM ROBIN Gray PER LAYER AND EXAMINER SOFT WORK * Anesthesia Preprocedure Evaluation - Cole Mccray MD - 08/11/2016 4:01 PM CST Anesthesia Evaluation Anesthesia Plan ASA 2 - emergent General Oral ETT airway maintenance NPO status waived due to emergency Pre-Anesthesia Evaluation - Long Form 08/11/2016 4:02 PM Name: Angela Alarcon Age: 30 y.o. Sex: female [facility]: [id number] No Known Allergies Prescriptions Prior to Admission Medication Sig Dispense Refill Last Dose ??? progesterone micronized (PROMETRIUM) 100 mg Capsule Take by mouth daily. 08/11/2016 at Unknown time ??? Vit 37-Sauc-FO-DSS (ADVANCED ) 90-1-50 mg Tablet Take 1 [...] COLONOSCOPY performed by Xavi Aquino MD at [facility] ??? Pr esophagogastroduodenoscopy transoral diagnostic 06/06/2013 ESOPHAGOGASTRODUODENOSCOPY performed by Xavi Aquino MD at [facility] ??? Hx wisdom teeth extraction Social History [...] solicited and answered. Yes Cole Mccray MD PER LAYER AND EXAMINER SOFT WORK documented in this encounter Plan of Treatment Upcoming Encounters Date Type Department Care Team (Late st Contact Info) Description 10/08/2024 9:45 AM CDT Office Visit [facility] PRESS WASHER - [facility] [address] [address] Terrie Manning MD [address] [facility] [address] [address] documented as of this encounter Visit Diagnoses Not on filedocumented in this encounter Administered Medications Inactive Administered Medications - up to 3 most recent administrations Medication Order MAR Action Action Date Dose Rate Site ceFAZolin (ANCEF) IVPB 2,000 mg 2,000 mg, IV, ONE TIME ONLY, 1 dose, On Shaila 08/11/16 at 1600, Routine, Antibiotic Indication: Surgical prophylaxis Given 08/11/2016 4:25 PM WRAPPER LAYER AND EXAMINER SOFT WORK 2,000 mg dexamethasone (DECADRON) injection INTRA-PROCEDURE PRN, Starting on Shaila 08/11/16 at 1630, Until Shaila 08/11/16 at 1705, Routine, Anesthesia Intra-op Given 08/11/2016 4:30 PM WRAPPER LAYER AND EXAMINER SOFT WORK 8 mg famotidine PF (PEPCID) 20 mg/2 mL injection INTRA-PROCEDURE PRN, Starting on Shaila 08/11/16 at 1630, Until Shaila 08/11/16 at 1705, Routine, Anesthesia Intra-op Given 08/11/2016 4:30 PM WRAPPER LAYER AND EXAMINER SOFT WORK 20 mg fentaNYL PF (SUBLIMAZE) 50 mcg/mL injection INTRA-PROCEDURE PRN, Starting on Shaila 08/11/16 at 1630, Until Shaila 08/11/16 at 1705, Pain (See admin instructions), Routine, Anesthesia Intra-op Given 08/11/2016 4:35 PM WRAPPER LAYER AND EXAMINER SOFT WORK 25 mcg Given 08/11/2016 4:30 PM WRAPPER LAYER AND EXAMINER SOFT WORK 25 mcg Given 08/11/2016 4:19 PM WRAPPER LAYER AND EXAMINER SOFT WORK 50 mcg lactated ringers solution INTRA-PROCEDURE CONTINUOUS PRN, Starting on Shaila 08/11/16 at 1600, Until Shaila 08/11/16 at 1705, Routine, Anesthesia Intra-op New Bag 08/11/2016 5:02 PM WRAPPER LAYER AND EXAMINER SOFT WORK New Bag 08/11/2016 4:45 PM WRAPPER LAYER AND EXAMINER SOFT WORK New Bag 08/11/2016 4:00 PM WRAPPER LAYER AND EXAMINER SOFT WORK lidocaine PF 2 % (XYLOCAINE MPF) injection INTRA-PROCEDURE PRN, Starting on Shaila 08/11/16 at 1619, Until Shaila 08/11/16 at 1705, Other (See Comment), Routine, Anesthesia Intra-op Given 08/11/2016 4:19 PM WRAPPER LAYER AND EXAMINER SOFT WORK 5 mL midazolam (PF) (VERSED) 1 mg/mL injection INTRA-PROCEDURE PRN, Starting on Shaila 08/11/16 at 1615, Until Shaila 08/11/16 at 1705, Routine, Anesthesia Intra-op Given 08/11/2016 4:15 PM WRAPPER LAYER AND EXAMINER SOFT WORK 2 mg ondansetron (ZOFRAN) 4 mg/2 mL injection INTRA-PROCEDURE PRN, Starting on Shaila 08/11/16 at 1630, Until Shaila 08/11/16 at 1705, Nausea/Emesis, Routine, Anesthesia Intra-op Given 08/11/2016 4:30 PM WRAPPER LAYER AND EXAMINER SOFT WORK 4 mg propofol (DIPRIVAN) injection INTRA-PROCEDURE PRN, Starting on Shaila 08/11/16 at 1630, Until Shaila 08/11/16 at 1705, Anesthesia Intra-op Given 08/11/2016 4:30 PM WRAPPER LAYER AND EXAMINER SOFT WORK 40 mg Given 08/11/2016 4:19 PM WRAPPER LAYER AND EXAMINER SOFT WORK 170 mg rocuronium (ZEMURON) injection INTRA-PROCEDURE PRN, Starting on Shaila 08/11/16 at 1619, Until Shaila 08/11/16 at 1705, Routine, Anesthesia Intra-op Given 08/11/2016 4:19 PM WRAPPER LAYER AND EXAMINER SOFT WORK 5 mg succinylcholine Chloride (ANECTINE) 140 mg/7 mL (20 mg/mL) injection INTRA-PROCEDURE PRN, Starting on Shaila 08/11/16 at 1619, Until Shaila 08/11/16 at 1705, Routine, Anesthesia Intra-op Given 08/11/2016 4:19 PM WRAPPER LAYER AND EXAMINER SOFT WORK 120 mg documented in this encounter Care Teams Resistance Machine Welder Setter Relationship Specialty Start Date End Date Terrie Manning MD PCP - General Obstetrics and Gynecology 05/27/13 documented as of this encounter
--- OUTSIDE RECORDS SUMMARY | 2024-05-27 15:53 | XMS_ITS | Encounter Summary ---
Author Organization [facility] Address [address] [place] [address] Care Team Providers Care Instructor Of Education Name Role Phone Terrie Manning MD Primary Care Provider [phone]- [phone] Reason for Visit * Auth/Cert - Closed Specialty Diagnoses / Procedures Referred By Contac t Referred To Contact Gastroenterology Diagnoses CHRONIC DIARRHA, REFLUX, FM HX OF COLON CANCER Procedures COLONOSCOPY [facility] Endoscopy [facility] [address] [place] [address] Referral ID Status Reason Start Date Expiration Date Visits Re quested Visits Authorized [id number] Closed 1 1 Encounter Details Date Type Department Care Team (Latest Contact Info) Description 06/06/2013 9:15 AM PATHOLOGY LABORATORY TECHNOLOGIST - 06/06/2013 10:51 AM PATHOLOGY LABORATORY TECHNOLOGIST Hospital Encounter [facility] [address] [place] [address] Xavi Aquino MD NO ADDRESS [...] Comments Blood Pressure 110/72 06/06/2013 10:33 AM PATHOLOGY LABORATORY TECHNOLOGIST Pulse 96 06/06/2013 10:33 AM PATHOLOGY LABORATORY TECHNOLOGIST Temperature 36.4 ??C (97.5 ??F) 06/06/2013 10:[address] Respiratory Rate 16 06/06/2013 10:33 AM PATHOLOGY LABORATORY TECHNOLOGIST Oxygen Saturation 100% 06/06/2013 10:33 AM PATHOLOGY LABORATORY TECHNOLOGIST Inhaled Oxygen Concentration - - Weight 63.5 kg (140 lb) 06/03/2013 1:30 PM PATHOLOGY LABORATORY TECHNOLOGIST Height 180.3 cm (5' 11 ) 06/03/2013 1:30 PM PATHOLOGY LABORATORY TECHNOLOGIST Body Mass Index 19.53 06/03/2013 1:30 PM PATHOLOGY LABORATORY TECHNOLOGIST documented in this encounter Discharge Instructions * Discharge Instructions* Xavi Aquino MD - 06/06/2013 10:27 AM PATHOLOGY LABORATORY TECHNOLOGIST Instructions after EGD and Colonoscopy After an [...] weeks, please call the office. Office Phone: [facility] [phone] [facility]???s [phone] [place] [phone] [facility] [phone] Exchange: OLOGY LABORATORY TECHNOLOGIST documented in this encounter Medications at Time [...] mentioned procedure(s) as scheduled. Xavi Aquino MD OLOGY LABORATORY TECHNOLOGIST documented in this encounter Procedure Notes * Xavi Aquino MD - 06/06/2013 10:27 AM CSTAssociated Order(s): GI REPORT [facility] Endoscopy Patient Name: Inessa Alarcon Procedure Date [...] signed electronically. Number of Addenda: [phone] [address] [address] OLOGY LABORATORY TECHNOLOGIST * Xavi Aquino MD - 06/06/2013 10:25 AM CSTAssociated Order(s): GI REPORT [facility] Endoscopy Patient Name: Inessa Alarcon Procedure Date [...] signed electronically. Number of Addenda: [phone] [facility] 207 [facility] [address] OLOGY LABORATORY TECHNOLOGIST documented in this encounter OR Notes * OR Anesthesia - Jose Haque MD - 06/06/2013 10:26 AM CST Phase II Postanesthesia Evaluation Including [facility] Modified Jesus Score Patient seen and evaluated: [...] wetness] Jose Haque MD 06/06/2013 10:26 AM OLOGY LABORATORY TECHNOLOGIST * OR Anesthesia - Jose Haque MD - 06/06/2013 10:13 AM CST Pre-Anesthesia Evaluation - Long Form 06/06/2013 10:14 AM Name: Inessa Alarcon Age: 27 y.o. Sex: female CSN: [id number] Procedure: Procedure(s): COLONOSCOPY ESOPHAGOGASTRODUODENOSCOPY Surgeons/Assistants: Surgeon(s) and [...] can be reached during the day at [phone] If no answer call [phone] OLOGY LABORATORY TECHNOLOGIST documented in this encounter Plan of Treatment Upcoming Encounters Date Type Department Care Team (Late st Contact Info) Description 10/08/2024 9:45 AM CDT Office Visit [facility] - [facility] [address] [facility] [address] [place] [address] Terrie Manning MD [address] [facility] [address] [place] [address] documented as of this encounter Procedures Procedure Name Priority Date/Time Associated Diagnosis Comments PATHOLOGY Routine 06/06/2013 12:02 PM PATHOLOGY LABORATORY TECHNOLOGIST GI REPORT 06/06/2013 10:28 AM PATHOLOGY LABORATORY TECHNOLOGIST GI REPORT 06/06/2013 10:26 AM PATHOLOGY LABORATORY TECHNOLOGIST POC H.PYLORI SCREEN, BIOPSY Routine 07/2013 9:57 AM PATHOLOGY LABORATORY TECHNOLOGIST ESOPHAGOGASTRODUODENOSCOPY 06/06 9:54 AM PATHOLOGY LABORATORY TECHNOLOGIST CHRONIC DIARRHA, REFLUX, FM HX OF COLON CANCER Case Notes [facility] - [facility] COLONOSCOPY 06/06/2013 9:54 AM PATHOLOGY LABORATORY TECHNOLOGIST CHRONIC DIARRHA, REFLUX, FM HX OF COLON CANCER Case Notes [facility] documented in this encounter Results * PATHOLOGY (06/06/2013 12:02 PM PATHOLOGY LABORATORY TECHNOLOGIST) SURGICAL PATHOLOGY ?[facility] ?[address] ? [place], [place] ??[address] ? Patient: ??INESSA ALARCON ? : ??1985 ? Procedure Date: ??06/06/2013 ? Accession Date: ??06/06/2013 ? Case No: ??[id number] ? Ordering Dr: ??XAVI AQUINO ? Case type SW is performed by [facility], [address] [facility], ? [place], [place] ??[address]; all other case types are performed by [facility] ? [facility], [address] [place], [place] ??[address] ?SURGICAL PATHOLOGY & NON-GYNECOLOGIC CYTOPATHOLOGY REPORT ? [...] and its performance ? characteristic determined by [facility], Department of ? Laboratory Medicine. ??It [...] FOR ABILIO MARIN M.D.- 06/07/13 01:09 pm [facility] Tissue specimen (specimen) 06/06/2013 12:02 PM PATHOLOGY LABORATORY TECHNOLOGIST Xavi Aquino MD PATHOLOGY/CYTOLOGY O RDERABLES [facility] CLIA# [id number] [address] [place] [address] * GI REPORT (06/06/2013 10:28 AM PATHOLOGY LABORATORY TECHNOLOGIST) Narrative Transcriptions Xavi Aquino MD - 06/06/2013 10:27 AM CST [facility] Endoscopy Patient Name: Inessa Alarcon Procedure Date [...] signed electronically. Number of Addenda: 0 [phone] [facility] [address] [facility] [address] Xavi Aquino MD GI PROCEDURE ORDERAB LES * GI REPORT (06/06/2013 10:26 AM PATHOLOGY LABORATORY TECHNOLOGIST) Narrative Transcriptions Xavi Aquino MD - 06/06/2013 10:25 AM CST [facility] Endoscopy Patient Name: Inessa Alarcon Procedure Date [...] signed electronically. Number of Addenda: 0 [phone] [place] [phone] Xavi Aquino MD GI PROCEDURE ORDERAB LES * POC H.PYLORI SCREEN, BIOPSY (06/06/2013 9:57 AM PATHOLOGY LABORATORY TECHNOLOGIST) H PYLORI SCREEN POC Negative Negative INTERFACE SYSTEM CLIA LICENSE [id number] INTERF [employer] SYSTEM Specimen from unspecified body site obtained by biopsy (specimen) 06/06/2013 9:57 AM PATHOLOGY LABORATORY TECHNOLOGIST 06/06/2013 9:57 AM PATHOLOGY LABORATORY TECHNOLOGIST Comment:BIOPSY Xavi Aquino MD POINT OF CARE [...] Routine, Pre-Procedure New Bag 06/06/2013 9:30 AM PATHOLOGY LABORATORY TECHNOLOGIST 125 mL/hr documented in this encounter Active and Recently Administered Medications Times are shown in PATHOLOGY LABORATORY TECHNOLOGIST. Continuous Medication Order 06/04/2013 06/05/2013 06/06/2013 lactated ringers solution (CANCELED) IV, at 125 mL/hr, PRE-PROCEDURE CONTINUOUS, Starting on Shaila 06/06/13 at 0930, Until Shaila 06/06/13 at 1252, Routine, Pre-Procedure 0930 (New Bag - Prov ider: Rose Marie Chinchilla RN)[phone] (Stopped - Provider: Beth Laguna RN) documented in this encounter Care Teams Instructor Of Education Relationship Specialty Start Date End Date Terrie Manning MD PCP - General Obstetrics and Gynecology 05/27/13 documented as of this encounter
--- OUTSIDE RECORDS SUMMARY | 2024-05-27 15:53 | XMS_ITS | Encounter Summary ---
Author Organization [facility] Address [address] [place] [address] Care Team Providers Care Green End Worker Name Role Phone Terrie Manning MD Primary Care Provider [phone]- [phone] Encounter Details Date Type Department Care Team (Late st Contact Info) Description 08/11/2016 3:45 PM LICENSED PSYCHOLOGIST MANAGER - 08/11/2016 5:00 PM LICENSED PSYCHOLOGIST MANAGER Surgery [facility] Operating Room [address] [place] [address] Dustin Bill MD [address] [address] HYSTEROSCOPY WITH DILATATION AND CURETTAGE [...] Comments Blood Pressure 112/64 08/11/2016 3:39 PM LICENSED PSYCHOLOGIST MANAGER Pulse 102 08/11/2016 3:39 PM LICENSED PSYCHOLOGIST MANAGER Temperature 36.8 ??C (98.3 ??F) 08/11/2016 3:39 PM CS T Respiratory Rate 20 08/11/2016 3:39 PM LICENSED PSYCHOLOGIST MANAGER Oxygen Saturation 100% 08/11/2016 3:39 PM LICENSED PSYCHOLOGIST MANAGER Inhaled Oxygen Concentration - - Weight 68 kg (150 lb) 08/11/2016 4:00 PM LICENSED PSYCHOLOGIST MANAGER Height - - Body Mass Index 20.92 08/09/2016 6:31 AM LICENSED PSYCHOLOGIST MANAGER documented in this encounter Discharge Instructions * Discharge Instructions* Jackelyn Alvarez RN - 08/11/2016 5:27 PM LICENSED PSYCHOLOGIST MANAGER SAFETY For the next 24 hours, you [...] or come to the Emergency Room at [facility] ([phone]) or the nearest Emergency Room. In an emergency, Call 911. NSED PSYCHOLOGIST MANAGER documented in this encounter Medications at Time of Discharge Medication Sig Dispensed Refills Start Date End Date HYDROcodone-acetaminoph en (NORCO) 5-325 mg tablet Take 1 Tablet by mouth every 4 hours as needed for Pain, Moderate. Max Daily Amount: 6 Tablets 15 Tablet 08/11/2016 08/25/2017 progesterone micronized (PROMETRIUM) 100 mg Capsule Take by mouth daily. 018 Vit 42-Pewq-PE-DSS (ADVANCED ) 90-1-50 mg Tablet Take 1 Tablet by mouth daily. 03/06/2019 documented as of this encounter Progress Notes * Shameka Yan RN - 08/11/2016 5:45 PM CST Offered to leave message regarding patient's loss with Hattie Thompson of the [facility] [employer] program. Pt gave permission and message was left with Hattie to request follow up. NSED PSYCHOLOGIST MANAGER documented in this encounter H&P Notes * [...] IV antibiotic prophylaxis with Ancef. Suction D&C/hysteroscopy NSED PSYCHOLOGIST MANAGER documented in this encounter OR Notes * Operative Report - Dustin Bill MD - 08/12/2016 3:25 AM CST [place], [place] [address] Operative Report CSN: [id number] DATE OF SERVICE: 08/11/2016 SURGEON Dustin Bill [...] she does not require RhoGAM. GLJ:MEDQ DID: [id number] Dictated by: Dustin Bill MD * Hilda-OP [...] pain/comfort utilizing verbal/nonverbal pain scales; assess culturalor zoroastrianism indicators attached to pain; administer pain medications as prescribed; utilize non-pharmacologic pain control and comfort measures Expected Outcome: Patient demonstrates and reports adequate pain control Outcome Met: States pain is at a tolerable level. NSED PSYCHOLOGIST MANAGER * Operative Report - Dustin Bill MD - 08/11/2016 5:00 PM CST Brief Postoperative Note Angela Alarcon [id number] Pre-operative Diagnosis: Incomplete Post-operative Diagnosis: Same Procedure/Anesthesia: Procedure(s) and Anesthesia Type: * HYSTEROSCOPY WITH DILATATION AND CURETTAGE SUCTION - General Surgeons/Assistants: Surgeon(s) and Role: * Dustin Bill MD - Primary Specimens Removed: products of conception Estimated Blood Loss: 250 cc. 200 in the vagina at the start of the procedure. 50 cc during the procedure. Complications:none Dustin Bill MD NSED PSYCHOLOGIST MANAGER documented in this encounter Miscellaneous Notes * Care Plan - Shameka Yan RN - 08/11/2016 5:20 PM CST Potential for pain related to surgical/procedural intervention Interventions: Assess level of pain/comfort utilizing verbal/nonverbal pain scales; assess culturalor zoroastrianism indicators attached to pain; administer pain medications as prescribed; utilize non-pharmacologic pain control and comfort measures Expected Outcome: Patient demonstrates and reports adequate pain control Outcome Met: prn meds available. NSED PSYCHOLOGIST MANAGER * Care Plan - Dustin Bill MD [...] as tolerated. Call the exchange for any concerns--[phone] Call the office for an appt in 2-3 weeks [phone] NSED PSYCHOLOGIST MANAGER * Care Plan - Delicia Denton RN [...] Patient/Family verbalizes understanding of pre op procedures. NSED PSYCHOLOGIST MANAGER documented in this encounter Plan of Treatment Upcoming Encounters Date Type Department Care Team (Late st Contact Info) Description 10/08/2024 9:45 AM CDT Office Visit [facility] HYDRAULIC MECHANIC - [facility] [address] [place] [address] Terrie Manning MD [facility] [place][note 2] [address] [address] documented as of this encounter Procedures Procedure Name Priority Date/Time Associated Diagnosis Comments TELEMETRY REPORT 08/12/2016 5:56 PM LICENSED PSYCHOLOGIST MANAGER PATHOLOGY Pathology 08/11/2016 4:33 PM LICENSED PSYCHOLOGIST MANAGER CBC WITHOUT DIFFERENTIAL Stat 08/11/2016 4:03 PM LICENSED PSYCHOLOGIST MANAGER HYSTEROSCOPY WITH DILATATION AND CURETTAGE SUCTION 08/11/2016 3:20 PM LICENSED PSYCHOLOGIST MANAGER Case Notes COMING FROM OFFICE documented in this encounter Results * TELEMETRY REPORT (08/12/2016 5:56 PM LICENSED PSYCHOLOGIST MANAGER) Provider Scanning ECG ORDERABLES * PATHOLOGY (08/11/2016 4:33 PM LICENSED PSYCHOLOGIST MANAGER) CASE REPORT Surgical Pathology Report ? Case: [id number] ? Authorizing Provider: ??Dustin Bill MD ?Collected: ? 08/11/2016 04:33 PM ? Ordering Location: ? [facility] ?Received: ?08/12/2016 06:42 AM ? Operating Room ? Pathologist: ? Monica Calvillo MD ? Specimen: ?Products Of Conception ? 08/15/2016 5:44 PM CDT [facility] - [facility] FINAL DIAGNOSIS Products of conception, hysteroscopy with dilatation and curettage: - Implantation site. - No chorionic villi identified. 08/15/2016 5:44 PM [employer] [employer] [facility] IMEN DESCRIPTION Products of conception. 08/15/2016 5:44 PM [facility] OPERATIVE PROCEDURE Hysteroscopy with dilatation and curettage suction. 08/15/2016 5:44 PM [facility] CLINICAL DIAGNOSIS Not provided. 08/15/2016 5:44 PM [facility] GROSS DESCRIPTION The specimen is received in a single container labeled Angela WhyteLien Wilsonjaron, products of conception and consists of two suction traps containing a 5 x 4.8 x 1.5-cm aggregate of red tissue. No hydropic villi are identified. No parts are found. The entire specimen is submitted in cassettes A1 to A5. LUCILLE/ale 08/15/2016 5:44 PM [facility] MICROSCOPIC DESCRIPTION The slides are labeled [id number] and Angela Alarcon. Sections of the products of conception reveal multiple fragments of implantation site and decidua. No chorionic villi are present. Correlation with the quantitative beta hCG is recommended. Slides are shown to Dr. Macdonald, and she concurs with the diagnosis. 08/15/2016 5:44 PM [facility] COMMENT Special stain and/or immunohistochemical results are interpreted with controls that demonstrate appropriate staining reactions. Note on use of immunocytochemistry reagents: This test was developed and its performance characteristic determined by [facility], Department of Laboratory Medicine. It has [...] WF, WB and WH are performed by [address], [address]. All other case types are performed by [address], [address]. 08/15/2016 5:44 PM [facility] Tissue (Products Of Conception) 08/11/2016 4:33 PM LICENSED PSYCHOLOGIST MANAGER 08/12/2016 6:42 AM LICENSED PSYCHOLOGIST MANAGER Dustin Bill MD PATHOLOGY/CYTOLOGY O [facility] - [facility] CLIA# [id number] [address] [place] [address] * (ABNORMAL) CBC WITHOUT DIFFERENTIAL (08/11/2016 4:03 PM LICENSED PSYCHOLOGIST MANAGER) WBC 12.3(H) 4.0 - 9.8 K/uL 08/11/2016 4:19 PM LICENSED PSYCHOLOGIST MANAGER [facility] - . [facility] RBC 3.18(L) 3.90 - 4.90 M/uL 08/11/2016 4:19 PM LICENSED PSYCHOLOGIST MANAGER [facility] - . [facility] HEMOGLOBIN 9.9(L) 11.8 - 14.8 g/dL 08/11/2016 4:19 PM LICENSED PSYCHOLOGIST MANAGER [facility] - . [facility] HEMATOCRIT 29.6(L) 35.5 - 44.0 % 08/11/2016 4:19 PM LICENSED PSYCHOLOGIST MANAGER [facility] - . [facility] MCV 93.1 82.0 - 99.0 fL 08/11/2016 4:19 PM LICENSED PSYCHOLOGIST MANAGER [facility] MCH 31.1 27.2 - 32.6 pg 08/11/2016 4:19 PM LICENSED PSYCHOLOGIST MANAGER [facility] - [facility] MCHC 33.4 31.5 - 35.5 g/dL 08/11/2016 4:19 PM LICENSED PSYCHOLOGIST MANAGER [facility] - [facility] PLATELETS 398(H) 140 - 350 K/uL 08/11/2016 4:19 PM LICENSED PSYCHOLOGIST MANAGER [facility] MPV 9.4 9.3 - 12.4 fL 08/11/2016 4:19 PM LICENSED PSYCHOLOGIST MANAGER [facility] - . [facility] RDW 12.3 11.5 - 14.5 % 08/11/2016 4:19 PM LICENSED PSYCHOLOGIST MANAGER [facility] - [facility] RDW-STDEV 42.4 37.1 - 48.7 fL 08/11/2016 4:19 PM LICENSED PSYCHOLOGIST MANAGER [facility] Blood Venipuncture / Unknown 08/11/2016 4:03 PM LICENSED PSYCHOLOGIST MANAGER 08/11/2016 4:09 PM LICENSED PSYCHOLOGIST MANAGER Dustin Bill MD HEMATOLOGY ORDERABLE S [facility]# [id number] [address] [place] [address] documented in this encounter Visit Diagnoses Not on filedocumented in this encounter Administered Medications Inactive Administered Medications - up to 3 most recent administrations Medication Order MAR Action Action Date Dose Rate Site bupivacaine-EPINEPHrin e (PF) (SENSORCAINE MPF WITH EPI) 0.25 %-1:200,000 injection INTRA-PROCEDURE PRN, Starting on Shaila 08/11/16 at 1633, Until Shaila 08/11/16 at 1702, Routine, Intra-op Given 08/11/2016 4:33 PM LICENSED PSYCHOLOGIST MANAGER 10 mL Operative Site diphenhydrAMINE (BENADRYL) injection [...] admin instructions), Routine Given 08/11/2016 6:06 PM LICENSED PSYCHOLOGIST MANAGER 1 Tablet lactated ringers solution IV, at 125 mL/hr, POST-PROCEDURE CONTINUOUS, Starting on Shaila 08/11/16 at 1615, Until Shaila 08/11/16 at 2122, Routine, PACU [place] 08/11/2016 4:12 PM LICENSED PSYCHOLOGIST MANAGER 125 mL/hr morphine 4 mg/mL injection 2 [...] Recently Administered Medications Times are shown in LICENSED PSYCHOLOGIST MANAGER. Scheduled Medication Order 08/09/2016 08/10/2016 08/11/2016 ceFAZolin [...] PACU documented in this encounter Care Teams Green End Worker Relationship Specialty Start Date End Date Terrie Manning MD PCP - General Obstetrics and Gynecology 05/27/13 documented as of this encounter
== END 2024-05-20 10:58 | disposition home or self-care (01) ==
PROVIDERS: Emergency Provider Nurse Practitioner; PCP Physician Assistant
DX: H65.02 Acute serous otitis media, left ear (principal)
CPT/HCPCS: 99213; G0463